=== PATIENT | female | born 1980 | race Caucasian/White ===

== ENCOUNTER 2022-11-21 06:30 | Emergency (ER) | payer OTHER, SELFPAY ==
[2022-11-21 06:36] VITALS: BP 124/86; PULSE 82; RESP 16; TEMP 36.5; O2SAT 98; BMI 29.3
--- NOTE | 2022-11-21 06:36 | ECG_ITS ---
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
--- NOTE | 2022-11-21 06:56 | ED_ITS ---
HPI - Anxiety General Chief Complaint: Anxiety Stated Complaint: MENTAL HEALTH EVAL Time Seen by Provider: 11/21/22 06:36 Source: patient Mode of arrival: walk-in Limitations: no limitations History of Present Illness HPI narrative: This 42-year-old female who is on multiple psychiatric medications for anxiety, depression and has an appointment at [address] [facility] presents to the emergency department requesting a mental health exam. She is feeling anxious and has thoughts that she doesn't want to be around anymore. I asked her why this is an she states that some things a been going on her life that are making her feel anxious and on appreciated. She states she also has a runny nose and a dry cough and recently had cold it. She states that she was at 2 emergency departments last night, one in [place] and one in [place] and they refused to see her. It sounds like the emergency departments were busy and she presented with upper respiratory symptoms and was placed in the lobby. She states that she tested positive for Covid 19 last Friday and then negative on . She is vaccinated. She denies any chest pain or shortness of breath. Related Data Home Medications Medication Instructions Recorded Confirmed aripiprazole 20 mg tablet mg 11/21/22 oxcarbazepine 150 mg tablet mg 11/21/22 quetiapine 25 mg tablet mg 11/21/22 sertraline 100 mg tablet mg 11/21/22 Allergies Allergy/AdvReac Type Severity Reaction Status Date / Time No Known Drug Allergies Allergy Verified 11/21/22 06:52 Review of Systems ROS Status of ROS 10 or more systems reviewed and unremarkable except as noted in history and below [facility] Social History Smoking status: Never smoker Exam Narrative Exam Narrative: Nurses note and vital signs reviewed and patient is not hypoxic. General: The patient appears well and in no apparent distress. Patient is resting comfortably on cart. Skin: Warm, dry, no pallor noted. There is no rash noted. Head: Normocephalic, atraumatic Eye: Normal conjunctiva, no drainage, EOMI. PERRL Ears, Nose, Mouth, and Throat: oral mucosa is moist. Nares patent. Mouth without vesicles. Ear canals patent. Tm's without Erythema Cardiovascular: Regular Rate and Rhythm S1 and S2 Respiratory: Patient is in no distress, no accessory muscle use, lungs are clear to auscultation, no wheezing, rales or rhonchi Back: non-tender, no CVA tenderness bilaterally to percussion. GI: Normal bowel sounds, no tenderness to palpation, no masses appreciated. No rebound, guarding, or rigidity noted. Musculoskeletal: The patient has no evidence of calf tenderness, no pitting edema, symmetrical pulses noted bilaterally Neurological: A&O x4, normal speech Psychiatric: Cooperative, Admits to ongoing anxiety, intermittent auditory hallucinations and depression with thoughts of not wanting to be here anymore Constitutional Vital Signs, click to edit/add: Last Vital Signs Temp 97.7 F 11/21/22 06:36 Pulse 82 11/21/22 06:36 Resp 16 11/21/22 06:36 BP 124/86 11/21/22 06:36 Pulse Ox 98 11/21/22 06:36 Course Vital Signs Vital signs: Vital Signs Temperature 97.7 F 11/21/22 06:36 Pulse Rate 82 11/21/22 06:36 Respiratory Rate 16 11/21/22 06:36 Blood Pressure 124/86 11/21/22 06:36 Pulse Oximetry 98 11/21/22 06:36 Temperature 97.7 F 11/21/22 06:36 Pulse Rate 82 11/21/22 06:36 Respiratory Rate 16 11/21/22 06:36 Blood Pressure 124/86 11/21/22 06:36 Pulse Oximetry 98 11/21/22 06:36 MDM - Anxiety ECG Data Attestation: I personally reviewed and interpreted this ECG as follows: (Sinus rhythm at 78 beats for minute, normal axis, normal intervals, no acute ST segment elevation or T-wave inversion) Discharge Plan Discharge Chief Complaint: Anxiety Patient Disposition: Still a Patient Time of Disposition Decision: 07:00 Prescriptions / Home Meds: No Action quetiapine 25 mg tablet oxcarbazepine 150 mg tablet sertraline 100 mg tablet aripiprazole 20 mg tablet Referrals: Physician,Non-Staff, MD [Primary Care Provider] - 1 week
--- NOTE | 2022-11-21 07:16 | PC.NURSE ---
CHECKED ON PT TO SEE IF SHE COULD TRY GIVING A URINE SAMPLE -- PT DENIES BEING ABLE TO GO. STATES SHE WOULD LIKE TO GO HOME AND NOT BE SEEN. PT AND THIS RN SIGNED AMA FORM. INFORMED DR DIAZ. PT REASONING IS THAT SHE DOES HAVE [facility] TODAY AND WOULD LIKE TO JUST BE SEEN THERE. PT DOES HAVE [facility] CR[facility]IS HOTLINE #.
--- NOTE | 2022-11-21 07:47 | ED.ANXIETY1 ---
HPI - Anxiety General Chief Complaint: Anxiety Stated Complaint: MENTAL HEALTH EVAL Time Seen by Provider: 11/21/22 06:36 Source: patient Mode of arrival: walk-in Limitations: no limitations History of Present Illness HPI narrative: the patient was initially seen by Dr. Perales and signed out to me after discussing the case with her thoroughly. See her full history and physical. Related Data Home Medications Medication Instructions Recorded Confirmed aripiprazole 20 mg tablet mg 11/21/22 oxcarbazepine 150 mg tablet mg 11/21/22 quetiapine 25 mg tablet mg 11/21/22 sertraline 100 mg tablet mg 11/21/22 Allergies Allergy/AdvReac Type Severity Reaction Status Date / Time No Known Drug Allergies Allergy Verified 11/21/22 06:52 PFSH PFSH Social History Smoking status: Never smoker Exam Constitutional Vital Signs, click to edit/add: Last Vital Signs Temp 97.7 F 11/21/22 06:36 Pulse 82 11/21/22 06:36 Resp 16 11/21/22 06:36 BP 124/86 11/21/22 06:36 Pulse Ox 98 11/21/22 06:36 Course Vital Signs Vital signs: Vital Signs Temperature 97.7 F 11/21/22 06:36 Pulse Rate 82 11/21/22 06:36 Respiratory Rate 16 11/21/22 06:36 Blood Pressure 124/86 11/21/22 06:36 Pulse Oximetry 98 11/21/22 06:36 Temperature 97.7 F 11/21/22 06:36 Pulse Rate 82 11/21/22 06:36 Respiratory Rate 16 11/21/22 06:36 Blood Pressure 124/86 11/21/22 06:36 Pulse Oximetry 98 11/21/22 06:36 MDM - Anxiety MDM Narrative Medical decision making narrative: the patient was in process of having workup and decided to leave without completing treatment. She is not suicidal. Discharge Plan Discharge Chief Complaint: Anxiety Clinical Impression: Anxiety Patient Disposition: Left Against Medical Advice Time of Disposition Decision: 07:00 Mode of Transportation: Private Vehicle Prescriptions / Home Meds: No Action quetiapine 25 mg tablet oxcarbazepine 150 mg tablet sertraline 100 mg tablet aripiprazole 20 mg tablet Stand Alone Forms: Portal Instructions Referrals: Physician,Non-Staff, MD [Primary Care Provider] - 1 week Discharge Date/Time: 11/21/22 07:18
== END 2022-11-21 07:18 | disposition left against medical advice (07) ==
PROVIDERS: Emergency Provider Emergency Medicine
DX: F41.9 Anxiety disorder, unspecified (principal); F32.A Depression, unspecified; Z79.899 Other long term (current) drug therapy; Z53.29 Procedure and treatment not carried out because of patient's decision for other reasons
CPT/HCPCS: 80053; 80307; 80320; 87811; 93005; 99283

== ENCOUNTER 2022-11-26 11:08 | Emergency (ER) | payer OTHER, SELFPAY ==
[2022-11-26 11:10] VITALS: BP 138/89; PULSE 94; RESP 18; TEMP 36.7; O2SAT 96; BMI 31.5
--- NOTE | 2022-11-26 11:15 | XR_ITS ---
The [address] [address] Patient Name: ROSANGELA HUGHES MRN: [id number] date: 1980 Sex: F Assigned Patient Location: ER Current Patient Location: ER Accession/Order Number: [id number] Exam Date: 11/26/2022 11:26 Report Date: 11/26/2022 12:03 At the request of: JOSEPH CASTANEDA Procedure: XR wrist RT 2V PROCEDURE: XR wrist RT 2V, XR hand RT min 3V COMPARISON: None. HISTORY: injury FINDINGS: BONES:No fracture, acute abnormality, or significant arthropathy. SOFT TISSUES:Negative. No visible soft tissue swelling. EFFUSION:None visible. OTHER: Negative. XR/XR wrist RT 2V IMPRESSION: No acute abnormality of the wrist or hand Electronically authenticated by: QUINTIN GARCIA Date: 11/26/2022 12:03
--- NOTE | 2022-11-26 11:15 | XR_ITS ---
The [address] [address] Patient Name: ROSANGELA HUGHES MRN: [id number] date: 1980 Sex: F Assigned Patient Location: ER Current Patient Location: ER Accession/Order Number: [id number] Exam Date: 11/26/2022 11:26 Report Date: 11/26/2022 12:03 At the request of: JOSEPH CASTANEDA Procedure: XR hand RT min 3V PROCEDURE: XR wrist RT 2V, XR hand RT min 3V COMPARISON: None. HISTORY: injury FINDINGS: BONES:No fracture, acute abnormality, or significant arthropathy. SOFT TISSUES:Negative. No visible soft tissue swelling. EFFUSION:None visible. OTHER: Negative. XR/XR hand RT min 3V IMPRESSION: No acute abnormality of the wrist or hand Electronically authenticated by: QUINTIN GARCIA Date: 11/26/2022 12:03
--- NOTE | 2022-11-26 12:19 | ED_ITS ---
HPI - General Adult General Chief complaint: Extremity Injury, Upper Stated complaint: UPPER EXTREMITY INJURY RIGHT HAND AND WRIST Time Seen by Provider: 11/26/22 12:11 Source: patient Mode of arrival: walk-in Limitations: language barrier History of Present Illness HPI narrative: Patient is a 42-year-old female who is presenting to the Emergency Room today with chief complaint of right wrist pain, right hand pain. Patient stated that she had a initial injury on September 02 with her right hand/wrist. Patient was diagnosed with a right wrist sprain at that time. Patient stated the right wrist did improve somewhat, but patient was bowling Friday night, and she reinjured the right wrist/hand. Patient has not been diagnosed with carpal tunnel syndrome. 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 Patient is right-hand dominant. Patient has no significant swelling, no fall, no other acute injury besides bowling Friday evening. No specific injury that occurred with bowling, just the act of bowling has reinjured the right wrist/hand. . All systems are negative except as noted/marked. All systems reviewed and otherwise negative. . Nurses note and vital signs reviewed and patient is not hypoxic. General: The patient appears well and in no apparent distress. Patient is resting comfortably on cart. Patient is not toxic, lethargic, or listless Skin: Warm, dry, no pallor noted. There is no rash noted. No petechiae, purpura. Head: Normocephalic, atraumatic Eye: Normal conjunctiva, no drainage, EOMI. PERRL Ears, Nose, Mouth, and Throat: oral mucosa is moist. Nares patent. Mouth without vesicles. Cardiovascular: Regular Rate and Rhythm, no murmur, gallop, rub Respiratory: Patient is in no distress, no accessory muscle use, lungs are clear to auscultation, no wheezing, rales or rhonchi Musculoskeletal: Patient has full range of motion of all of the extremities except to the right wrist and hand. Patient has pain over the volar and dorsal aspect of the right wrist. Patient has positive Tinel's and Phalen sign. patient has no ecchymosis, no obvious signs of deformity or dislocation. Patient has full range of motion of right shoulder and right elbow with no difficulty. patient has normal cap refill to the 5 fingers of the right hand. No acute complaints. no motor, sensory, or focal neurological deficits Neurological: A&O x3, normal speech Psychiatric: Cooperative Related Data Home Medications Medication Instructions Recorded Confirmed aripiprazole 20 mg tablet mg 11/21/22 oxcarbazepine 150 mg tablet mg 11/21/22 quetiapine 25 mg tablet mg 11/21/22 sertraline 100 mg tablet mg 11/21/22 Allergies Allergy/AdvReac Type Severity Reaction Status Date / Time No Known Drug Allergies Allergy Verified 11/21/22 06:52 PFSH PFS Social History Smoking status: Never smoker Exam Constitutional Vital Signs, click to edit/add: Last Vital Signs Temp 98.0 F 11/26/22 11:10 Pulse 94 H 11/26/22 11:10 Resp 18 11/26/22 11:10 BP 138/89 11/26/22 11:10 Pulse Ox 96 11/26/22 11:10 O2 Del Method Room Air 11/26/22 11:10 Course Vital Signs Vital signs: Vital Signs Temperature 98.0 F 11/26/22 11:10 Pulse Rate 94 H 11/26/22 11:10 Respiratory Rate 18 11/26/22 11:10 Blood Pressure 138/89 11/26/22 11:10 Pulse Oximetry 96 11/26/22 11:10 Oxygen Delivery Method Room Air 11/26/22 11:10 Temperature 98.0 F 11/26/22 11:10 Pulse Rate 94 H 11/26/22 11:10 Respiratory Rate 18 11/26/22 11:10 Blood Pressure 138/89 11/26/22 11:10 Pulse Oximetry 96 11/26/22 11:10 Oxygen Delivery Method Room Air 11/26/22 11:10 Medical Decision Making [facility] Narrative Medical decision making narrative: patient right hand x-ray and right wrist x-ray show no acute fracture, di slocation, or acute abnormality. A copy of the report was given to the patient. Patient is placed in a right hand cock-up splint. Splint was assisted with . the patient was neurovascularly intact before and after the splint was placed. the affected bones/injured area had proper alignment in a splint. Education on splint care at home was given at bedside. Patient and family have no questions at discharge. Patient was given education on ice, anti-inflammatories, and follow-up with PCP. No questions at discharge. Patient had a appointment made at 11:[address] Jansen for today surgery. Patient was given work restrictions as well. Patient does live in [place]. Patient is right-hand dominant, she's not seen Dr. Jansen previously. Patient does have repetitive motions at work, she may have underlying carpal tunnel syndrome to the right wrist. Discharge Plan Discharge Chief Complaint: Extremity Injury, Upper Clinical Impression: Mild carpal tunnel syndrome of right wrist, Right wrist sprain Patient Disposition: Home, Self-Care Time of Disposition Decision: 12:14 Condition: Good Prescriptions / Home Meds: No Action quetiapine 25 mg tablet oxcarbazepine 150 mg tablet sertraline 100 mg tablet aripiprazole 20 mg tablet Instructions: Wrist Injury (ED), Carpal Tunnel Syndrome (DC), P.R.I.C.E. Treatment (ED), Ice Pack Application (ED), Wrist Sprain (ED) Additional Instructions: ice 20 minutes on, 20 minutes off Use Motrin, Advil, ibuprofen 600 mg every 8 hours with food or drink to help with pain and swelling. He had an appointment on Friday 11:[address] Jansen. Stand Alone Forms: Work/School Release, Portal Instructions Referrals: Physician,Non-Staff, [Primary Care Provider] - 1 week Colten Jansen MD [Physician] - 1 week
== END 2022-11-26 12:22 | disposition home or self-care (01) ==
PROVIDERS: Emergency Provider Emergency Medicine
DX: S63.501A Unspecified sprain of right wrist, initial encounter (principal); G56.01 Carpal tunnel syndrome, right upper limb; X58.XXXA Exposure to other specified factors, initial encounter; Y93.54 Activity, bowling
CPT/HCPCS: 73100; 73130; 99284

== ENCOUNTER 2022-11-27 10:58 | Emergency (ER) | payer OTHER, SELFPAY | END 2022-11-27 11:07 | disposition left against medical advice (07) | LOC: ER 11:02 | PROVIDERS: Emergency Provider Emergency Medicine | DX: S63.501A Unspecified sprain of right wrist, initial encounter (principal); G56.01 Carpal tunnel syndrome, right upper limb; X58.XXXA Exposure to other specified factors, initial encounter; Y93.54 Activity, bowling; Z79.899 Other long term (current) drug therapy | CPT/HCPCS: 99281 ==

== ENCOUNTER 2022-12-10 09:53 | Emergency (ER) | payer OTHER, SELFPAY | END 2022-12-10 10:06 | disposition left against medical advice (07) | PROVIDERS: Emergency Provider Emergency Medicine Emergency Medical Services | DX: Z53.21 Procedure and treatment not carried out due to patient leaving prior to being seen by health care provider (principal) ==

== ENCOUNTER 2022-12-29 | Emergency (ER) | payer OTHER, SELFPAY ==
[2022-12-29 00:06] VITALS: BP 152/90; PULSE 66; RESP 18; TEMP 36.8; O2SAT 98; BMI 29.3
--- NOTE | 2022-12-29 00:15 | PC.NURSE ---
Patient to ED hoping to get prescriptions for her psych medications. She claims that she is stable on her current medication regimen and ran out of pills today. She does not want to go without her medications because she knows she will become depressed. She is in the process of switching from one counseling service to another and does not have anyone to prescribe her medications. She has been in this facility for SI numerous times in the past, has been sent to [facility] both voluntarily and involuntarily, and does not want that to happen again.
--- NOTE | 2022-12-29 00:29 | ED.ANXIETY1 ---
HPI - Anxiety General Chief Complaint: Anxiety Stated Complaint: Medication refill Time Seen by Provider: 12/29/22 00:24 Source: patient Mode of arrival: walk-in Limitations: no limitations History of Present Illness HPI narrative: patient past history of mental health. States she took her last dose of trileptal and zoloft today and she is looking for a new doctor. she does not want to be without her mental health meds and presented to the ER for refills she is otherwise doing well Related Data Home Medications Medication Instructions Recorded Confirmed aripiprazole 20 mg tablet mg 11/21/22 oxcarbazepine 150 mg tablet mg 11/21/22 quetiapine 25 mg tablet mg 11/21/22 sertraline 100 mg tablet mg 11/21/22 Allergies Allergy/AdvReac Type Severity Reaction Status Date / Time No Known Drug Allergies Allergy Verified 11/21/22 06:52 Review of Systems ROS Status of ROS 10 or more systems reviewed and unremarkable except as noted in history and below PFSH PFS Social History Smoking status: Never smoker Exam Constitutional Vital Signs, click to edit/add: Last Vital Signs Temp 98.2 F 12/29/22 00:06 Pulse 66 12/29/22 00:06 Resp 18 12/29/22 00:06 BP 152/90 H 12/29/22 00:06 Pulse Ox 98 12/29/22 00:06 O2 Del Method Room Air 12/29/22 00:06 Common normals: no apparent distress, average body habitus, oriented x3, no limitations, healthy appearing, alert and well nourished Eye Common normals: EOMs intact bilaterally and conjunctivae normal Respiratory Common normals: normal respiratory effort, no retractions, no use of accessory muscles and clear to auscultation bilaterally Cardio Common normals: regular rate, regular rhythm, S1 normal heart sound and S2 normal heart sound Extremity Common normals: normal to inspection and full ROM Neuro Common normals: oriented x3, CN's II-XII intact bilaterally, moves all extremities, no focal motor deficits and no sensory deficits noted Psych Appearance: grossly normal Course Vital Signs Vital signs: Vital Signs Temperature 98.2 F 12/29/22 00:06 Pulse Rate 66 12/29/22 00:06 Respiratory Rate 18 12/29/22 00:06 Blood Pressure 152/90 H 12/29/22 00:06 Pulse Oximetry 98 12/29/22 00:06 Oxygen Delivery Method Room Air 12/29/22 00:06 Temperature 98.2 F 12/29/22 00:06 Pulse Rate 66 12/29/22 00:06 Respiratory Rate 18 12/29/22 00:06 Blood Pressure 152/90 H 12/29/22 00:06 Pulse Oximetry 98 12/29/22 00:06 Oxygen Delivery Method Room Air 12/29/22 00:06 MDM - Anxiety MDM Narrative Medical decision making narrative: patient is doing well and is only here for refill of her mental health medication. Took her last dose today of zoloft and trileptal she still has abilify and seroquel. History of bipolar anxiety Discharge Plan Discharge Chief Complaint: Anxiety Clinical Impression: Anxiety Patient Disposition: Home, Self-Care Prescriptions / Home Meds: No Action quetiapine 25 mg tablet oxcarbazepine 150 mg tablet sertraline 100 mg tablet aripiprazole 20 mg tablet Instructions: Anxiety (ED) Stand Alone Forms: Portal Instructions Referrals: Physician,Non-Staff, MD [Primary Care Provider] - 1 week
== END 2022-12-29 00:41 | disposition home or self-care (01) ==
PROVIDERS: Emergency Provider Internal Medicine
DX: Z76.0 Encounter for issue of repeat prescription (principal); F41.9 Anxiety disorder, unspecified; F31.9 Bipolar disorder, unspecified; Z79.899 Other long term (current) drug therapy
CPT/HCPCS: 99283

== ENCOUNTER 2023-01-15 10:37 | Emergency (ER) | payer OTHER, SELFPAY ==
[2023-01-15 10:43] VITALS: BP 132/94; PULSE 98; RESP 16; TEMP 36.4; O2SAT 99; BMI 29.3
--- NOTE | 2023-01-15 11:13 | ED.URI1 ---
HPI - URI/Sore Throat General Chief Complaint: Upper Respiratory Infection Stated Complaint: urti Time Seen by Provider: 01/15/23 10:49 Source: patient History of Present Illness HPI Narrative: Patient has nasal congestion, chills and some achiness for about a week. She got sent home from work today and would like a work excuse. Overall symptoms are improved over the last 2 days. No fever, abdominal pain, vomiting, diarrhea, cough, chest congestion, flank pain or urinary symptoms. Related Data Home Medications Medication Instructions Recorded Confirmed aripiprazole 20 mg tablet mg 11/21/22 oxcarbazepine 150 mg tablet mg 11/21/22 quetiapine 25 mg tablet mg 11/21/22 sertraline 100 mg tablet mg 11/21/22 Allergies Allergy/AdvReac Type Severity Reaction Status Date / Time No Known Drug Allergies Allergy Verified 11/21/22 06:52 PFSH PFS Social History Smoking status: Never smoker Exam Narrative Exam Narrative: Nurses notes and vital signs reviewed and patient is not hypoxic. afebrile General: Well-appearing and in no apparent distress. Skin: Warm, dry, no pallor noted. No rash. Head: Normocephalic, atraumatic. Neck: Supple, non-tender. cervical lymphadenopathy. Eye: Pupils are equal, round and EOMI. No scleral icterus. Ears, Nose, Mouth, and Throat: TM are clear, mild amount of clear rhinorrhea and nasal mucosal hypertrophy. Oral mucosa is moist, no posterior oropharynx erythema, uvula is mid-line Cardiovascular: Regular Rate and Rhythm without murmur, gallop or rub. Respiratory: No accessory muscle use or respiratory distress. Lungs are clear to auscultation, no wheezing, rales or rhonchi Back: No CVA tenderness Musculoskeletal: normal ROM GI: Abdomen is soft, non-distended. Normal bowel sounds. No tenderness to palpation. No rebound, guarding, or rigidity noted. Neurological: A&O x4. No cranial nerve dysfunction observed. No truncal ataxia. Moves all extremities. Sensation intact. Psychiatric: Cooperative and interactive. Normal mood and affect. Constitutional Vital Signs, click to edit/add: Last Vital Signs Temp 97.6 F 01/15/23 10:43 Pulse 98 H 01/15/23 10:43 Resp 16 01/15/23 10:43 BP 132/94 H 01/15/23 10:43 Pulse Ox 99 01/15/23 10:43 O2 Del Method Room Air 01/15/23 10:43 Course Vital Signs Vital signs: Vital Signs Temperature 97.6 F 01/15/23 10:43 Pulse Rate 98 H 01/15/23 10:43 Respiratory Rate 16 01/15/23 10:43 Blood Pressure 132/94 H 01/15/23 10:43 Pulse Oximetry 99 01/15/23 10:43 Oxygen Delivery Method Room Air 01/15/23 10:43 Temperature 97.6 F 01/15/23 10:43 Pulse Rate 98 H 01/15/23 10:43 Respiratory Rate 16 01/15/23 10:43 Blood Pressure 132/94 H 01/15/23 10:43 Pulse Oximetry 99 01/15/23 10:43 Oxygen Delivery Method Room Air 01/15/23 10:43 MDM - URI/Sore Throat MDM Narrative Medical decision making narrative: Patient advised to rest, stay at home, practice social distancing, take Motrin and Tylenol for pain and fever if not allergic, stay well hydrated with Gatorade or similar drinks if vomiting or eat as tolerated if not and take any meds as prescribed. Reviewed reasons to return including rapid increase in respiratory rate, shortness of breath, confusion, inability to keep down sips of swallowed liquids for more than 24 hours. Asked patient to encourage any ill contacts to stay home and practice similar advice. Discharge Plan Discharge Chief Complaint: Upper Respiratory Infection Clinical Impression: Upper respiratory infection, Viral infection Patient Disposition: Home, Self-Care Time of Disposition Decision: 11:13 Prescriptions / Home Meds: No Action quetiapine 25 mg tablet oxcarbazepine 150 mg tablet sertraline 100 mg tablet aripiprazole 20 mg tablet Instructions: Upper Respiratory Infection (ED), Viral Syndrome (ED) Stand Alone Forms: Portal Instructions Referrals: Physician,Non-Staff, MD [Primary Care Provider] - 1 week
== END 2023-01-15 11:24 | disposition home or self-care (01) ==
PROVIDERS: Emergency Provider Emergency Medicine
DX: J06.9 Acute upper respiratory infection, unspecified (principal)
CPT/HCPCS: 99281

== ENCOUNTER 2023-01-29 06:10 | Emergency (ER) | payer OTHER, SELFPAY ==
[2023-01-29 06:15] VITALS: PULSE 91; RESP 17; TEMP 36.5; O2SAT 98; BMI 29.3
[2023-01-29 06:24] VITALS: BP 115/77; BP 118/77; BP 118/86; PULSE 78; PULSE 80; PULSE 81
--- NOTE | 2023-01-29 07:22 | ECG_ITS ---
The 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
--- NOTE | 2023-01-29 07:23 | ED.GENADUL1 ---
HPI - General Adult General Chief complaint: Weakness Stated complaint: GENERAL WEAKNESS Time Seen by Provider: 01/29/23 06:12 Source: patient Mode of arrival: walk-in Limitations: no limitations History of Present Illness HPI narrative: 43-year-old female presents for dizziness. She states it started yesterday when she was at work. There was no syncope. She's been nauseous but no vomiting. No fever or cough. She states she feels funny today but she doesn't have any pain. Related Data Home Medications Medication Instructions Recorded Confirmed aripiprazole 20 mg tablet mg 11/21/22 oxcarbazepine 150 mg tablet mg 11/21/22 quetiapine 25 mg tablet mg 11/21/22 sertraline 100 mg tablet mg 11/21/22 Allergies Allergy/AdvReac Type Severity Reaction Status Date / Time No Known Drug Allergies Allergy Verified 11/21/22 06:52 Review of Systems ROS Narrative A ten point review of systems is negative except as noted above. PFSH PFSH Social History Smoking status: Never smoker Exam Narrative Exam Narrative: Nurses note and vital signs reviewed and patient is not hypoxic. General: The patient appears well and in no apparent distress. Patient is resting comfortably on cart. Skin: Warm, dry, no pallor noted. There is no rash noted. Head: Normocephalic, atraumatic Eye: Normal conjunctiva, no drainage Ears, Nose, Mouth, and Throat: oral mucosa is moist. Nares patent. Cardiovascular: Regular Rate and Rhythm, not tachycardic Respiratory: Patient is in no distress, no accessory muscle use, lungs are clear to auscultation, no wheezing, rales or rhonchi Back: non-tender GI: soft and nontender Musculoskeletal: The patient has no evidence of calf tenderness, no pitting edema, symmetrical pulses noted bilaterally Neurological: A&O, normal speech; upper and lower extremity strength intact Psychiatric: Cooperative Constitutional Vital Signs, click to edit/add: Last Vital Signs Temp 97.7 F 01/29/23 06:15 Pulse 78 01/29/23 06:24 Resp 17 01/29/23 06:15 BP 118/86 01/29/23 06:24 Pulse Ox 98 01/29/23 06:15 O2 Del Method Room Air 01/29/23 06:15 Course Vital Signs Vital signs: Vital Signs Temperature 97.7 F 01/29/23 06:15 Pulse Rate 91 H 01/29/23 06:15 Respiratory Rate 17 01/29/23 06:15 Pulse Oximetry 98 01/29/23 06:15 Oxygen Delivery Method Room Air 01/29/23 06:15 Temperature 97.7 F 01/29/23 06:15 Pulse Rate 78 01/29/23 06:24 Respiratory Rate 17 01/29/23 06:15 Blood Pressure 118/86 01/29/23 06:24 Pulse Oximetry 98 01/29/23 06:15 Oxygen Delivery Method Room Air 01/29/23 06:15 Medical Decision Making MDM Narrative Medical decision making narrative: the patient's workup is negative. She'll follow-up with her physician if there is no improvement. Treatment diagnosis and follow-up were discussed with the patient. Medical Records Medical records reviewed: Yes I reviewed the patient's medical records Lab Data Lab results reviewed: Yes I reviewed the patient's lab results Labs: Lab Results 01/29/23 Range/Units 07:30 WBC 4.6 (4.0-11.0) 10^3/uL RBC 4.41 (4.20-5.40) 10^6/uL Hgb 11.5 L (12.0-16.0) g/dL Hct 37.0 (36.0-48.0) % MCV 83.9 (81.0-99.0) fL MCH 26.1 L (26.7-34.0) pg MCHC 31.1 (29.9-35.2) g/dL RDW 13.5 (11.0-15.0) % Plt Count 342 (150-450) 10^3/uL MPV 9.9 (9.5-13.5) fL Neut % (Auto) 62.0 (43.0-75.0) % Lymph % (Auto) 29.6 (20.5-60.0) % [place] % (Auto) 6.7 (1.7-12.0) % Eos % (Auto) 1.1 (0.9-7.0) % Baso % (Auto) 0.4 (0.2-2.0) % Neut # (Auto) 2.9 (1.4-6.5) 10^3/uL Lymph # (Auto) 1.4 (1.2-3.8) 10^3/uL [place] # (Auto) 0.3 (0.3-0.8) 10^3/uL Eos # (Auto) 0.1 (0.0-0.7) 10^3/uL Baso # (Auto) 0.0 (0.0-0.1) 10^3/uL Abs Immat Gran (auto) 0.01 (0.00-0.03) 10^3/uL Imm/Tot Granulo (auto) 0.2 (0.0-0.5) % Sodium 138 (136-145) mmol/L Potassium 3.9 (3.5-5.1) mmol/L Chloride 103 (98-107) mmol/L Carbon Dioxide 26.9 (21.0-32.0) mmol/L Anion Gap 12.0 BUN 9.0 (7.0-18.0) mg/dL Creatinine 0.63 (0.55-1.02) mg/dL Est GFR ( Amer) >60 (>=60) Est GFR (Non-Af Amer) >60 (>=60) BUN/Creatinine Ratio 14.3 Glucose 89 (74-106) mg/dL Calcium 8.6 (8.5-10.1) mg/dL Serum HCG, Qual Negative (NEGATIVE) ECG Data Attestation: I personally reviewed and interpreted this ECG as follows: (EKG on my interpretation shows normal sinus rhythm with a rate of 68.) Discharge Plan Discharge Chief Complaint: Weakness Clinical Impression: Dizziness Patient Disposition: Home, Self-Care Time of Disposition Decision: 08:28 Condition: Good Mode of Transportation: Private Vehicle Prescriptions / Home Meds: No Action quetiapine 25 mg tablet oxcarbazepine 150 mg tablet sertraline 100 mg tablet aripiprazole 20 mg tablet Instructions: Dizziness (ED) Stand Alone Forms: Portal Instructions Referrals: Physician,Non-Staff, MD [Primary Care Provider] - 1 week
[2023-01-29 07:35] VITALS: PULSE 62
[2023-01-29 07:44] LABS: Basophils Percent Auto 0.4 % (0.2-2.0); Eosinophils Absolute Auto 0.1 10^3/uL (0.0-0.7); Eosinophils Percent Auto 1.1 % (0.9-7.0); Hemoglobin 11.5 g/dL (12.0-16.0); Immature Granulocytes Abs Auto 0.01 10^3/uL (0.00-0.03); Immature Granulocytes Pct Auto 0.2 % (0.0-0.5); Lymphocytes Absolute Auto 1.4 10^3/uL (1.2-3.8); Lymphocytes Percent Auto 29.6 % (20.5-60.0); Mean Corpuscular HGB Conc 31.1 g/dL (29.9-35.2); Mean Corpuscular Hemoglobin 26.1 pg (26.7-34.0); Mean Corpuscular Volume 83.9 fL (81.0-99.0); Mean Platelet Volume 9.9 fL (9.5-13.5); Monocytes Absolute Auto 0.3 10^3/uL (0.3-0.8); Monocytes Percent Auto 6.7 % (1.7-12.0); Neutrophils Absolute Auto 2.9 10^3/uL (1.4-6.5); Platelet Count 342 10^3/uL (150-450); Red Blood Count 4.41 10^6/uL (4.20-5.40); Red Cell Distribution Width 13.5 % (11.0-15.0); White Blood Count 4.6 10^3/uL (4.0-11.0)
[2023-01-29 07:54] LABS: HCG Qualitative NEGATIVE (NEGATIVE)
[2023-01-29 08:18] LABS: BUN Creatinine Ratio 14.3; Calcium 8.6 mg/dL (8.5-10.1); Carbon Dioxide 26.9 mmol/L (21.0-32.0); Chloride 103 mmol/L (98-107); Estimated GFR (African America >60 (>=60); Estimated GFR (Non-African Ame >60 (>=60); Glucose 89 mg/dL (74-106); Potassium 3.9 mmol/L (3.5-5.1); Sodium 138 mmol/L (136-145)
[2023-01-29 08:28] VITALS: BP 142/90; PULSE 84; RESP 16; O2SAT 100
== END 2023-01-29 08:44 | disposition home or self-care (01) ==
PROVIDERS: Emergency Provider Emergency Medicine
DX: R42 Dizziness and giddiness (principal); Z79.899 Other long term (current) drug therapy
CPT/HCPCS: 36415; 80048; 84703; 85025; 93005; 99284

== ENCOUNTER 2023-02-06 09:41 | Emergency (ER) | payer OTHER, SELFPAY ==
[2023-02-06 09:46] VITALS: BP 126/88; PULSE 85; RESP 18; TEMP 36.6; O2SAT 98; BMI 29.3
--- NOTE | 2023-02-06 10:39 | ED_ITS ---
HPI - Dizziness General Chief Complaint: Dizziness Stated Complaint: DIZZINESS Time Seen by Provider: 02/06/23 10:25 Source: patient Mode of arrival: walk-in Limitations: no limitations History of Present Illness HPI Narrative: patient's here for evaluation of dizziness. She's had it for approximately one month. She says the dizziness she describes it as the room spinning. She's not had a head trauma or concussions. She does not have any associated diplopia or dysarthria or dysphasia. She told her primary care doctor but they didn't really investigated any further. She does not have any tinnitus or hearing loss. She's not been falling. She does not have any balance problems. She has been on several antidepressants for several months if not longer. There has not been a change in her medications. She's not had a CT scan. She is not known have a underlying central nervous system diseases or history of cancer. Related Data Home Medications Medication Instructions Recorded Confirmed aripiprazole 20 mg tablet mg 11/21/22 oxcarbazepine 150 mg tablet mg 11/21/22 quetiapine 25 mg tablet mg 11/21/22 sertraline 100 mg tablet mg 11/21/22 Allergies Allergy/AdvReac Type Severity Reaction Status Date / Time No Known Drug Allergies Allergy Verified 02/06/23 09:46 [facility] Social History Smoking status: Never smoker Exam Narrative Exam Narrative: awake alert normal vital signs as noted. Does not appear ill moves about comfortably. Eyes are open. HEENT examination shows very slight horizontal nystagmus with lateral gaze. Otherwise ears nose and throat sows no focus of infection. I examination as noted slight nystagmus but there is no vertical or rotatory component. Pupillary light response is normal. Extra ocular muscles are normal. Neurological examination focused on the cerebellar functions testing was all completely normal with fine motor skills finger to nose balance testing all normal. Cranial nerves II through XII and motor skills are equally normal. Cognition is normal. Patient is normal. She has good balance testing. Constitutional Vital Signs, click to edit/add: Last Vital Signs Temp 98 F 02/06/23 09:46 Pulse 85 02/06/23 09:46 Resp 18 02/06/23 09:46 BP 126/88 02/06/23 09:46 Pulse Ox 98 02/06/23 09:46 O2 Del Method Room Air 02/06/23 09:46 Course Vital Signs Vital signs: Vital Signs Temperature 98 F 02/06/23 09:46 Pulse Rate 85 02/06/23 09:46 Respiratory Rate 18 02/06/23 09:46 Blood Pressure 126/88 02/06/23 09:46 Pulse Oximetry 98 02/06/23 09:46 Oxygen Delivery Method Room Air 02/06/23 09:46 Temperature 98 F 02/06/23 09:46 Pulse Rate 85 02/06/23 09:46 Respiratory Rate 18 02/06/23 09:46 Blood Pressure 126/88 02/06/23 09:46 Pulse Oximetry 98 02/06/23 09:46 Oxygen Delivery Method Room Air 02/06/23 09:46 MDM - Dizziness MDM Narrative Medical decision making narrative: this patient's on three medications that haven't incidence of dizziness from 10- 50 percent. This may be the etiology or she could also have underlying vestibular dysfunction. I really hesitate at additional medication to what she is already taking but I think if she tries for two or three days and improves that would indicate that she probably has vestibular dysfunction. She was told to follow up with her practitioner's to discuss medication adjustments based on her tolerance of these recommendations Discharge Plan Discharge Chief Complaint: Dizziness Clinical Impression: Dizziness Patient Disposition: Home, Self-Care Time of Disposition Decision: 10:42 Prescriptions / Home Meds: No Action quetiapine 25 mg tablet oxcarbazepine 150 mg tablet sertraline 100 mg tablet aripiprazole 20 mg tablet Additional Instructions: try low-dose Antivert for two or three days. Follow up with her primary care doctor discuss medication interaction and symptoms Stand Alone Forms: Portal Instructions Referrals: Physician,Non-Staff, MD [Primary Care Provider] - 1 week
[2023-02-06 10:57] VITALS: BP 133/96; BP 142/110; BP 153/114; PULSE 73; PULSE 75; PULSE 83
[2023-02-06 10:59] VITALS: BP 133/96; PULSE 73; RESP 18
== END 2023-02-06 11:00 | disposition home or self-care (01) ==
PROVIDERS: Emergency Provider Emergency Medicine Emergency Medical Services
DX: R42 Dizziness and giddiness (principal); Z79.899 Other long term (current) drug therapy
CPT/HCPCS: 99283

== ENCOUNTER 2023-03-06 06:12 | Emergency (ER) | payer OTHER, SELFPAY ==
[2023-03-06 06:16] VITALS: BP 120/94; PULSE 76; RESP 18; TEMP 36.7; O2SAT 99; BMI 29.3
--- OUTSIDE RECORDS SUMMARY | 2023-03-06 06:30 | XMS_ITS | CCD ---
Author Name Unknown Address [address] [place] [address] Organization [facility] Care Team Providers Care Dairy Bacteriologist Name Role Phone Armen Martel Unavailable Unavailable None Unavailable Unavailable Marielos Moraes Primary Care Provider [phone] HotmireShan Primary Care Provider SHELBIE GOOD Admitting Unavailable NO, PHYSICIAN Primary Care Unavailable ARNOL GALAN Attending Unavailable HOTMIRE, SHAN CAMPUZANO Primary Care Unavaila ble Hotmire, Shan Campuzano Primary Care Provider Hotmire, Shan R Primary Care Provider ABBY JOLLEY Referring Unavailable HOTMIRE, SHAN R Primary Care Unavailable Hotmire DO, Shan R Primary Care Provider [phone] Hotmire Shan DUNN R Primary Care Provider HOTMIRESHAN Primary Care Physician [phone] Chandra Kaplan Primary Care Physician Unavail able Unavailable Primary Care Provider Unavailnimo e Armaan SLOAN Primary Care Physician MD Huma Barone Primary Care Provider [phone] DO Clifford Yusuf Emergency Provider MD Miguelangel Zhou Admit Provider MD Miguelangel Zhou Attending Provider MD Lisa Julian Admit Provider [phone] MD Lisa Julian Attending Provider [phone] DO Armaan Sloan Primary Care Provider MD Huma Barone Primary Care Provider Wanda REARDON Primary Care Physician Monika Mena Primary Care Physician Unavailable Primary Care Provider UnavailDat Flanagan Primary Care Physician [phone] NO FAMILY, PHYSICIAN Primary Care Provider Unava ilable Alanna, [facility]- Monica Keen Emergency Provider Dom Ferris Unavailable Coy Day DO Primary Care Provider [phone] COY DAY Primary Care Physician JUNI, DR CHITO Hassan Attending Unavailable JUNI, DR CHITO Hassan Admitting Unavailable JUNI, DR CHITO Hassan Consulting Unavailable REQUEST, NONE LISTED Primary Care Unavaila ble REQUEST, DR CARTER LISTED Primary Care Unavaila ble HAY ., DR ARMAS Attending Unavailable HAY ., DR ARMAS Admitting Unavailable HAY ., DR ARMAS Consulting Unavailable DIGNA ., ESTUARDO Admitting Unavailable DIGNA ., ESTUARDO Consulting Unavailable REQUEST, DR NONE LISTED Primary Care Unavaila ble DIGNA ., ESTUARDO Attending Unavailable MARKER ., DR SOW Admitting Unavailable REQUEST, NONE LISTED Primary Care Unavaila ble MARKER ., DR SOW Attending Unavailable JUNI, DR CHITO Hassan Consulting Unavailable JUNI, DR CHITO Hassan Attending Unavailable JUNI, DR CHITO Hassan Admitting Unavailable WENDIE ., DR HUMA Keen Primary Care Unavailable REQUEST, NONE LISTED Primary Care Unavaila ble JUNI, DR CHITO Hassan Attending Unavailable JUNI, DR CHITO Hassan Admitting Unavailable JUNI, DR CHITO Hassan Consulting Unavailable STEVEN, GINETTE Admitting Unavailable STEVEN, GINETTE Consulting Unavailable ELVIRAC, DR PRATT Primary Care Unavailable STEVEN, GINETTE Attending Unavailable STEVEN, GINETTE Admitting Unavailable WENDIE ., DR HUMA Keen Primary Care Unavailable STEVEN, GINETTE Attending Unavailable STEVEN, GINETTE Consulting Unavailable ELVIRAC, DR PRATT Primary Care Unavailable JUNI, DR CHITO Hassan Attending Unavailable JUNI, DR CHITO Hassan Admitting Unavailable JUNI, DR CHITO Hassan Consulting Unavailable REQUEST, NONE LISTED Primary Care Unavaila ble REINECK, DR ARAVIND Atkinson Admitting Unavailabl e REINECK, DR ARAVIND Atkinson Consulting Unavailabl e REINECK, DR ARAVIND Atkinson Attending Unavailabl e STEVEN, GINETTE Admitting Unavailable STEVEN, GINETTE Consulting Unavailable REQUEST, DR NONE LISTED Primary Care Unavaila ble STEVEN, GINETTE Attending Unavailable FLOR SANDOVAL Consulting Unavailable REQUEST, NONE LISTED Primary Care Unavaila ble RAMA ., SHANA RUSSO Consulting Unavailabl e YASMINE, DR ARAVIND Atkinson Attending Unavailabl e REINMELANI, DR ARAVIND Atkinson Admitting Unavailabl e JUNI, DR CHITO Hassan Attending Unavailable ALFREDO, DR CHITO Hassan Admitting Unavailable REQUEST, DR NONE LISTED Primary Care Unavaila ble STEVEN, GINETTE Attending Unavailable STEVEN, GINETTE Admitting Unavailable STEVEN, GINETTE Consulting Unavailable MISC, DR PRATT Primary Care Unavailable REQUEST, NONE LISTED Primary Care Unavaila ble HAY ., DR ARMAS Attending Unavailable HAY ., DR ARMAS Admitting Unavailable HAY ., DR ARMAS Consulting Unavailable DIGAN ., ESTUARDO Admitting Unavailable DIGNA ., ESTUARDO Consulting Unavailable DIGNA ., ESTUARDO Attending Unavailable REQUEST, DR NONE LISTED Primary Care Unavaila ble REINECK, DR ARAVIND Atkinson Admitting Unavailabl e REINECK, DR ARAVIND Atkinson Attending Unavailabl e REQUEST, NONE LISTED Primary Care Unavaila ble DIGNA ., ESTUARDO Admitting Unavailable DIGNA ., ESTUARDO Attending Unavailable REQUEST, DR NONE LISTED Primary Care Unavaila ble DIAB ., RAUL Attending Unavailable DIAB ., RAUL Admitting Unavailable REQUEST, DR NONE LISTED Primary Care Unavaila ble DIAB ., RAUL Consulting Unavailable STEVEN, GINETTE Admitting Unavailable STEVEN, GINETTE Consulting Unavailable MISC, DR PRATT Primary Care Unavailable STEVEN, GINETTE Attending Unavailable Coy Day DO Primary Care Provider Coy Day DO Primary Care Provider Diana MARQUEZ - Beth FIGUEREDO Primary Care Provid er COY DAY Primary Care Unavailable LAW, DA E Referring Unavailable BETH ORTIZ Primary Care Unavailable BETH ORTIZ Primary Care Unavailable BETH ORTIZ Primary Care Unavailable COY DAY Primary Care Unavailable No Family, Physician Primary Care Unavailable BETH ORTIZ Primary Care Unavailable COY DAY Primary Care Unavailable DO Coy Day Primary Care Provider JIMMY Mendoza Attending Provider NO FAMILY, PHYSICIAN Primary Care Provider UnaMD Miguelangel Schulte Admit Provider MD Miguelangel Zhou Attending Provider NON STAFF Primary Care Provider Unavailabl e DO Ace Frankel Emergency Provider [phone] Diana BUSINESS PROCESS REPRESENTATIVE - COMMERCIAL AGENT, Beth Primary Care Provid er BETH ORTIZ Primary Care Unavailable COY DAY Primary Care Unavailable QUINTIN CAR Attending Unavailable SHAN RIVAS Primary Care Physician Temp, Provider Admitting Unavailable Temp, Provider Attending Unavailable NO FAMILY, PHYSICIAN Primary Care Unavailable TuRebeca saldanarick M Admitting Unavailable TuAce saldana M Attending Unavailable NON STAFF Primary Care Unavailable Coy Day Primary Care Unavailabl e Jostin, Ace M Admitting Unavailable Ace Frankel Attending Unavailable Miguelangel Zhou Attending Unavailable NO FAMILY, PHYSICIAN Primary Care Unavailable Miguelangel Zhou Admitting Unavailable Monica Mondragon Admitting Unavailable BullMonica owens Attending Unavailable NO FAMILY, PHYSICIAN Primary Care Unavailable Coy Day Primary Care Unavailabl Sarai Boyd Admitting Unavailable Sarai Mendoza Attending Unavailable Scar Julian Admitting Unavailab Scar Maguire Attending Unavailab le NO FAMILY, PHYSICIAN Primary Care Unavailable BETH ORTIZ Primary Care Unavailable JASON MILLER Attending Unavailable OLIVERIO WEEKS Attending Unavailable COY DAY Primary Care Unavailable THEE DAYSHUA J Primary Care Unavailable THEE DAYSHUA J Referring Unavailable ALTAF RAUL Attending Unavailable THEE DAYSHUA J Primary Care Unavailable COY DAY Primary Care Unavailable WANDA QIU Attending Unavailable Grant Dos Santos Attending Unavailable Ishmael Fernandez SShalom Attending Unavailable DO Edwin Jolley Attending Unavailable Alan Zhu Attending Unavailable Alan Zhu Attending Unavailable Alan Zhu Attending Unavailable Grant Dos Santos Attending Unavailable Matt Pena Attending Unavailable Grant Dos Santos Attending Unavailable Bertin Fernandes Attending Unavailable Ishmael Fernandez SShalom Attending Unavailable Grant Dos Santos Attending Unavailable Grant Dos Santos Attending Unavailable IRINA, ILA PEDERSEN Admitting Unavaila ble SOSHANNON, ILA PEDERSEN Attending Unavaila Grant Rust Attending Unavailable DIANA, BETH Admitting Unavailable DIANA, BETH Attending Unavailable DO Edwin Jolley Attending Unavailable Matt Pena Attending Unavailable Alan Zhu Attending Unavailable Alan Zhu Attending Unavailable Alan Zhu Attending Unavailable Grant Dos Santos Attending Unavailable Niesha Duffy Unavailable COY DAY Primary Care Unavailable COY DAY Primary Care Unavailable JANEEN SCHILLING Attending Unavailable DIANA, BETH Primary Care Unavailable OLEKEEGAN MEREDITHUA J Primary Care Unavailable DIANA, BETH Primary Care Unavailable MARITO JASON Attending Unavailable DIANA, BETH Primary Care Unavailable COY DAY Primary Care Unavailable COY ZUÑIGA Attending Unavailable DIANA, BETH Primary Care Unavailable DIANA, BETH Primary Care Unavailable KEEGAN DAYUA Fay Primary Care Unavailable DIANA, BETH Primary Care Unavailable COY DAY Primary Care Unavailable MARITO JASON Attending Unavailable DIANA, BETH Primary Care Unavailable DIANA, BETH Primary Care Unavailable MARITO JASON Attending Unavailable DIANA, BETH Primary Care Unavailable FLY MUÑOZ R JHOAN~[id number] GERRI Attending Unavailable DIANA, BETH Primary Care Unavailable DIANA, BETH Primary Care Unavailable DIANA, BETH Primary Care Unavailable ANTONIO, COY J Primary Care Unavailable RAY WANDA, R JHOAN~[id number] GERRI Attending Unavailable THEE DAYSHUA J Primary Care Unavailable DELIO BOLES Attending Unavailable DIANA, BETH Primary Care Unavailable DIANA, BETH Primary Care Unavailable MARITO JASON Attending Unavailable DIANA, BETH Primary Care Unavailable DIANA, BETH Primary Care Unavailable THEE DAYSHUA J Primary Care Unavailable Fay VARGAS~[id number] CHITO~[id number] BARAHONA Att ending Unavailable COY DAY Primary Care Unavailable DIANA, BETH Primary Care Unavailable EV BARAHONA Attending Unavailable Hotmire DO, Shan Nando Primary Care Unava ilable Subha PA-C, Louann Thomas Attending Unavaila ble Hotmire DO, Shan Nando Primary Care Unava ilable Carmen PA-C, Haylee Guido Attending Unavaila ble Rhett DO, Luisa Capone Attending Unava ilable Hotmire DO, Shan Nando Primary Care Unava ilbrianne Grey MD, Austin Attending Unavailable Law DO, Da E Primary Care Unavailable Hotmire DO, Shan Nando Primary Care Unava francyable Que MARAVILLA, Austin Attending Unavailable Rhett DO, Luisa Capone Attending Unava ilable Roland MARAVILLA, Nakul Anthony Referring Unava ilable Law DO, Da E Primary Care Unavailable Denike DO, Patricio Barron Attending Unavaila ble Reese MARAVILLA, Ofelia Calvillo Attending Unavailab le Law DO, Da E Primary Care Unavailable Que MARAVILLA, Austin Attending Unavailable Rhett DO, Luisa Capone Attending Unava ilable Andre ALEXIS, Beth Caballero Attending Unavailable Hotmire DO, Shan Nando Primary Care Unava ilable Andrzej PA-C, Dante Mo Attending Unav ailable Allen MARAVILLA, Raheem Gallagher Attending Unava ilable Law DO, Da E Primary Care Unavailable Law DO, Da E Primary Care Unavailable Hotmire DO, Shan Nando Primary Care Unava ilable Roland MARAVILLA, Nakul Anthony Attending Unava ilable Hotmire DO, Shan Nando Primary Care Unava ilable Hotmire DO, Shan Nando Consulting Unava marbella Grey MD, Austin Attending Unavailable Meek MARAVILLA, Grant Sheikh Attending Unavailable Hotmire DO, Shan Nadno Primary Care Unava ilable Hotmire DO, Shan Nando Primary Care Unava ilable Andrzej PA-C, Dante Mo Attending Unav ailable Hotmire DO, Shan Nando Primary Care Unava ilable Carmen PA-C, Haylee Guido Attending Unavaila ble Hotmire DO, Shan Nando Primary Care Unava ilable Carmen PA-C, Haylee Guido Attending Unavaila ble Salome II DO, Dom Mixon Attending Unava ilable Law DO, Da E Primary Care Unavailable Hotmire DO, Shan Nando Primary Care Unava ilable Roger DILLON, Betsy Schulz Attending Unav ailable Hotmire DO, [facility] Primary Care Unava ilable Karrie ALEXIS, Dasha Zhou Attending Unavailable Roger DILLON, Betsy Schulz Attending Unav donta Martinez MD, Serina Attending Unavailable Law DO, Da E Primary Care Unavailable Law DO, Da E Primary Care Unavailable Subha DILLON, Louann Thomas Attending Unavaila trevor Martinez MD, Serina Attending Unavailable Hotmire DO, [facility] Primary Care Unava ilable Hotmire DO, [facility] Primary Care Unava ilable Yosef MARAVILLA, Coy Post Attending Unav ailable Law DO, Da E Primary Care Unavailable Law DO, Da E Primary Care Unavailable Allen MARAVILLA, Raheem Gallagher Attending Unava ilable Allergies Allergy Classification Reported Allergen(s) Allergy Type Date of Onset Reaction(s) Facility (1 source) No Known Medication Allergies; Translations: [No Known Medication Allergies] Propensity to adverse reactions to drug (disorder) [facility] Repository Medications Current Medications Medication Drug Class(es) Dates Sig (Normalized) Sig (Original) acetaminophen 500 mg oral tablet (7 sources) Start: 09-19-2022 take 2 tablets by mouth every eight hours as needed for pain acetaminophen (TYLENOL) 500 MG tablet Take 2 tablets by mouth every 8 hours as needed for Pain 360 tablet 0 09/19/2022 Active Start: 09-19-2022 acetaminophen (TYLENOL) tablet 1,000 mg [facility]amin[facility] 500 MG Oral for 30 Days Not-Taking/PRN amoxicillin 500 mg oral capsule (2 sources) Penicillin-class Antibacterial Start: 07-31-2021 End: 08-10-2021 take 1 capsule by mouth three times daily amoxicillin (AMOXIL) 500 mg capsule Take 1 capsule by mouth 3 times daily for 10 days 30 capsule 0 07/31/2021 08/10/2021 Active amoxicillin 875 mg / clavulanate 125 mg oral tablet (20 sources) Penicillin-class Antibacterial Start: 02-21-2023 take 1 tablet by mouth every twelve hours Amoxicillin-Pot Clavulanate 875-125 MG 1 tablet Orally every 12 hrs for 10 day(s) Jan, Active Start: 09-19-2022 End: 09-26-2022 take 1 tablet by mouth twice daily amoxicillin-clavulanate (AUGMENTIN) 875-125 MG per tablet Take 1 tablet by mouth 2 times daily for 7 days 14 tablet 0 09/19/2022 09/26/2022 Active Start: 08-13-2022 take 1 tablet by tameka th twice daily at mealtime amoxicillin-clavulanate (AUGMENTIN) 875-125 MG per tablet take 1 tablet by mouth twice a day for 7 days TAKE WITH FOOD AND PLENTY OF WATER 0 08/13/2022 Active Start: 12-04-2021 End: 12-14-2021 take 1 tablet by mouth every twelve hours Augmentin 875 mg oral tablet = 1 tab(s), Oral, q12hr, X 10 day(s), # 20 tab(s), Refills(s) 0, Pharmacy: [facility] #[id number], 158, cm, 12/04/21 16:22:00 EDT, Height/Length Dosing, 73, kg, 12/04/21 16:22:00 EDT, Weight Dosing Start Date: 12/04/21 Stop Date: 12/14/21 Status: Ordered Start: 10-08-2021 End: 05-29-2022 take 1 tablet by mouth twice daily Amoxicillin-Pot Clavulanate Discontinued 1 TAB PO Twice daily October 08, 2021 12:00am May 29, 2022 2:54pm Start: 10-08-2021 take 1 tablet by tameka th twice daily Amoxicillin-Pot Clavulanate Active 1 TAB PO Twice daily October 08, 2021 12:00am Start: 07-31-2021 take 1 tablet by tameka th twice daily Amoxicillin-Pot Clavulanate Active 1 TAB PO Twice daily 13 09July 31, 2021 7:33am Start: 07-31-2021 End: 08-17-2021 take 1 capsule by mouth three times daily Amoxicillin-Pot Clavulanate Discontinued 1 TAB PO Twice daily 13 09July 31, 2021 12:00am August 17, 2021 10:49am 13 capsules left take 1 capsule by mouth three times a day for 10 days Start: 08-04-2020 End: 08-14-2020 take 1 tablet by mouth twice daily amoxicillin-clavulanate (AUGMENTIN) 875-125 MG per tablet Take 1 tablet by mouth 2 times daily for 10 days 20 tablet 0 08/04/2020 08/14/2020 Active Start: 09-18-2018 End: 09-25-2018 take 1 tablet by mouth twice daily amoxicillin-clavulanate (AUGMENTIN) 875-125 MG per tablet Indications: Chronic frontal sinusitis Take 1 tablet by mouth 2 times daily for 7 days 14 tablet 0 09/18/2018 09/25/2018 End: 12-05-2021 take 1 tablet by mouth once in the morning amoxicillin-clavulanate (AUGMENTIN) 875-125 MG per tablet Take 1 tablet by mouth in the morning. 0 12/05/2021 Discontinued (LIST CLEANUP) ARIPiprazole 400 mg extended release prefilled syringe (20 sources) Atypical Antipsychotic Start: 10-27-2022 take 10 mg by mouth once daily Aripiprazole Active 10 MG PO Daily 0 October 27, 2022 12:00am Start: 10-27-2022 Aripiprazole ( Abilify Maintena) 400 mg Suspension,Extended Rel Syring Active 400 MG IM Q28D 1 October 27, 2022 12:00am Due on or about 11/22/2022 Start: 10-25-2022 End: 10-27-2022 take 15 mg by mouth once daily Aripiprazole Discontinued 15 MG PO Daily October 25, 2022 12:00am October 27, 2022 11:23am Start: 09-18-2018 End: 07-31-2021 take 1 tablet by mouth once daily ARIPiprazole (ABILIFY) 5 MG tablet Take 1 tablet by mouth daily 30 tablet 0 09/18/2018 Active take 1 tablet by tameka th once daily ARIPiprazole (ABILIFY) 10 MG tablet Take 10 mg by mouth daily . 0 Active benzonatate 100 mg oral capsule (3 sources) Non-narcotic Antitussive Start: 06-03-2022 End: 11-21-2022 take 1 capsule by mouth three times daily as needed for cough benzonatate (TESSALON) 100 MG capsule Take 1 capsule by mouth 3 times daily as needed for Cough 30 capsule 0 11/11/2022 11/21/2022 Active brompheniramine maleate 0.4 mg/ml / dextromethorphan hydrobromide 2 mg/ml / pseudoephedrine hydrochloride 6 mg/ml oral solution (17 sources) alpha-Adrenergic Agonist, Uncompetitive T-lamhbm-F-asparta te Receptor Antagonist, Sigma-1 Agonist Start: 05-17-2022 take 5 mL by mouth four times daily for cough and congestion Bromfed DM oral syrup 5 mL, Oral, QID for cough and congestion, 200 mL, Refill(s) 0, [id number], 157, cm, 05/17/22 9:42:00 EDT, Height/Length Dosing, 73, kg, 05/17/22 9:42:00 EDT, Weight Dosing Start Date: 05/17/22 Status: Ordered Start: 08-15-2021 End: 09-21-2021 Plxnhwwaraxghkg-Dghsihcsu-Py Discontinued 5 ML PO Three times daily August 15, 2021 12:00am September 21, 2021 4:11am take 5 mililiters by mouth three times a day if needed for cough and congestion, bottle full Start: 07-31-2021 End: 08-05-2021 take 5 mL by mouth three times daily as needed for cough jqeubzofwkvslsv-ibitpvwsrppztrm-WB 2-30- 10 MG/5ML syrup Take 5 mLs by mouth 3 times daily as needed for Congestion or Cough 100 mL 0 07/31/2021 08/05/2021 Active cephalexin 500 mg oral capsule (2 sources) Cephalosporin Antibacterial Start: 08-28-2022 End: 09-02-2022 take 1 capsule by mouth every twelve hours Keflex 500 mg Cap 500 mg = 1 cap(s), Oral, q12hr, X 5 day(s), # 10 cap(s), Refills(s) 0 Start Date: 08/28/22 Stop Date: 09/02/22 Status: Ordered COVID TEST (20 sources) Start: 10-06-2021 COVID TEST COVID TEST, Please dispense 1 at home covid test that ins will cover, Print Requisition, Supply Start Date: 10/06/21 Status: Ordered dextromethorphan hydrobromide 2 mg/ml / guaiFENesin 20 mg/ml oral suspension (1 source) Uncompetitive R-bpigqs-W-aspartate Receptor Antagonist, Sigma-1 Agonist Start: 11-11-2022 End: 11-21-2022 take 5 mL by mouth three times daily as needed for cough guaiFENesin-dext romethorphan (ROBITUSSIN DM) 100-10 MG/5ML syrup Take 5 mLs by mouth 3 times daily as needed for Cough 120 mL 0 11/11/2022 11/21/2022 Active dicyclomine hydrochloride 10 mg oral capsule (1 source) Anticholinergic Start: 07-14-2022 End: 07-21-2022 take 1 capsule by mouth four times daily Bentyl 10 mg Cap 10 mg = 1 cap(s), Oral, QID, X 7 day(s), # 14 cap(s), Refills(s) 0, Pharmacy: [id number], 157, cm, 07/14/22 2:01:00 EDT, Height/Length Dosing, 83.1, kg, 07/14/22 2:01:00 EDT, Weight Dosing Start Date: 07/14/22 Stop Date: 07/21/22 Status: Ordered doxycycline hyclate 100 mg oral tablet (3 sources) Tetracycline-class Drug Start: 09-18-2022 End: 09-25-2022 take 1 tablet by mouth twice daily doxycycline hyclate (VIBRA-TABS) 100 MG tablet Indications: Acute bacterial sinusitis Take 1 tablet by mouth 2 times daily for 7 days 14 tablet 0 09/18/2022 09/25/2022 Active Start: 09-16-2022 End: 09-23-2022 take 1 tablet by mouth twice daily doxycycline monohydrate 100 mg oral tablet 100 mg = 1 tab(s), Oral, BID, X 7 day(s), # 14 tab(s), Refills(s) 0, Pharmacy: [facility] #[id number], 157.5, cm, 09/16/22 7:22:00 EDT, Height/Length Dosing, 84, kg, 09/16/22 7:22:00 EDT, Weight Dosing Start Date: 09/16/22 Stop Date: 09/23/22 Status: Ordered Flonase 0.05 mg/inh nasal spray (14 sources) Start: 01-15-2022 Flonase 0.05 m g/inh nasal spray 1 spray(s), Nasal, Daily, 1 EA, Refill(s) 0, 158, cm, 01/15/22 12:06:00 EST, Height/Length Dosing, 73, kg, 01/15/22 12:06:00 EST, Weight Dosing Start Date: 01/15/22 Status: Ordered fluticasone propionate 0.05 mg/actuat metered dose nasal spray (13 sources) Corticosteroid Start: 05-07-2022 fluticasone Na aramis 0.05 mg/inh Atco 2 spray(s), Nasal, Daily, 16 gram, Refill(s) 0, each nostril, [facility], 157, cm, 05/07/22 12:59:00 EST, Height/Length Dosing, 73, kg, 05/07/22 12:59:00 EST, Weight Dosing Start Date: 05/07/22 Status: Ordered Start: 01-15-2022 Flonase 0.05 m g/inh nasal spray 1 spray(s), Nasal, Daily, 1 EA, Refill(s) 0, 158, cm, 01/15/22 12:06:00 EST, Height/Length Dosing, 73, kg, 01/15/22 12:06:00 EST, Weight Dosing Start Date: 01/15/22 Status: Ordered Start: 01-13-2019 fluticasone (F LONASE) 50 MCG/ACT nasal spray Indications: Acute bacterial sinusitis 2 sprays by Nasal route daily 1 Bottle 1 01/13/2019 Active furosemide 20 mg oral tablet (3 sources) Loop Diuretic Start: 11-02-2022 End: 11-07-2022 take 1 tablet by mouth once daily furosemide (LASIX) 20 MG tablet Take 1 tablet by mouth daily for 5 days 5 tablet 0 11/02/2022 Active Start: 10-20-2018 End: 10-30-2018 take 1 tablet by mouth once daily furosemide (LASIX) 40 MG tablet Take 1 (one) tablet (40 mg total) by mouth daily for 10 days . 10 tablet 0 10/20/2018 10/30/2018 Active 12 hr guaiFENesin 600 mg extended release oral tablet (3 sources) Start: 09-19-2022 End: 10-04-2022 take 1 tablet by mouth twice daily guaiFENesin (MUCINEX) 600 MG extended release tablet Take 1 tablet by mouth 2 times daily for 15 days 30 tablet 0 09/19/2022 10/04/2022 Active hydrOXYzine hydrochloride 25 mg oral tablet (20 sources) Antihistamine Start: 07-10-2022 take 1 tablet by mouth every eight hours as needed for anxiety hydrOXYzine HCl (ATARAX) 25 MG tablet Take 1 tablet by mouth every 8 hours as needed for Anxiety 10 tablet 0 07/10/2022 Active Start: 07-10-2022 End: 07-10-2022 take 1 dose by mouth once 25 mg, Oral, ONCE, 1 dose, O n 07/10/22 at 1230 Start: 08-15-2021 End: 08-17-2021 Hydroxyzine Hcl Discontinued MG TABLET August 15, 2021 12:00am August 17, 2021 10:49am Start: 09-19-2020 End: 09-21-2021 hydrOXYzine pamoate 25 mg Ca p Refills(s) 0 Start Date: 01/04/21 Status: Ordered Start: 09-17-2018 End: 10-02-2018 take 1 tablet by mouth three times daily as needed for anxiety hydrOXYzine (ATARAX) 50 MG tablet Take 1 tablet by mouth 3 times daily as needed for Anxiety 45 tablet 0 09/17/2018 10/02/2018 Discontinued (LIST CLEANUP) End: 09-17-2018 take 1 tablet by mouth three times daily as needed for anxiety hydrOXYzine (ATARAX) 25 MG tablet Take 25 mg by mouth 3 times daily as needed for Anxiety 0 Active loratadine 10 mg oral tablet (11 sources) Start: 05-07-2022 take 1 tablet by mouth once daily loratadine 10 mg Tab 10 mg = 1 tab(s), Oral, Daily, # 30 tab(s), Refills(s) 0, Pharmacy: [facility] #[id number], 157, cm, 05/07/22 12:59:00 EST, Height/Length Dosing, 73, kg, 05/07/22 12:59:00 EST, Weight Dosing Start Date: 05/07/22 Status: Ordered 24 hr loratadine 10 mg / pseudoephedrine sulfate 240 mg extended release oral tablet (3 sources) alpha-Adrenerg ic Agonist Start: 09-16-2022 End: 09-30-2022 Claritin-D 24 Hour 10 mg-240 mg Tab-ER 1 tab(s), Oral, Daily for 14 day(s), 14 tab(s), Refill(s) [facility] #[id number], 157.5, cm, 09/16/22 7:22:00 EDT, Height/Length Dosing, 84, kg, 09/16/22 7:22:00 EDT, Weight Dosing Start Date: 09/16/22 Stop Date: 09/30/22 Status: Ordered Start: 12-04-2021 End: 12-14-2021 loratadine-pseudoephedrine 5 mg-120 mg ER Tab 1 tab(s), Oral, q12hr for 10 day(s), 20 tab(s), Refill(s) 0, [facility] #[id number], 158, cm, 12/04/21 16:22:00 EDT, Height/Length Dosing, 73, kg, 12/04/21 16:22:00 EDT, Weight Dosing Start Date: 12/04/21 Stop Date: 12/14/21 Status: Ordered Start: 01-13-2019 take 10-240 mg by mo ut once loratadine-pseudoephedrine (CLARITIN-D 2 4 HOUR) 10-240 MG per extended release tablet Indications: Acute bacterial sinusitis Take 1 tablet by mouth daily 15 tablet 0 01/13/2019 Active LORazepam 1 mg oral tablet (20 sources) Benzodiazepine Start: 08-27-2020 take 1 tablet by mouth once daily at bedtime LORazepam 1 mg Tab 1 mg = 1 tab(s), Oral, Once a day (at bedtime), # 3 tab(s), Refills(s) 0 Start Date: 08/27/20 Status: Ordered meclizine hydrochloride 25 mg oral tablet (7 sources) Antiemetic take 1 tablet by mouth three times daily as needed meclizine (ANTIVERT) 25 MG tablet Take 1 tablet by mouth 3 times daily as needed 0 Active meloxicam (14 sources) Nonsteroidal Anti-inflammatory Drug MELOXICAM PO Take by mouth 0 Active take 1 tablet by mouth once rosendo y meloxicam (MOBIC) 15 MG tablet Take 15 mg by mouth daily . 0 Active methylPREDNISolone 4 mg oral tablet (1 source) Corticosteroid Start: 03-29-2022 End: 04-04-2022 Medrol 4 mg Tab = 1 packet(s), Oral, As Directed, as directed on package labeling, X 6 day(s), # 21 tab(s), Refills(s) 0, Pharmacy: [id number], 157, cm, 03/29/22 10:42:00 EST, Height/Length Dosing, 73, kg, 03/29/22 10:42:00 EST, Weight Dosing Start Date: 03/29/22 Stop Date: 04/04/22 Status: Ordered naproxen 375 mg oral tablet (20 sources) Nonsteroidal Anti-inflammatory Drug Start: 07-28-2022 End: 08-04-2022 take 1 tablet by mouth twice daily at mealtime naproxen (NAPROSYN) 375 MG tablet Take 1 tablet by mouth 2 times daily (with meals) for 7 days 14 tablet 0 07/28/2022 Active Start: 10-16-2021 take 1 tablet by tameka th twice daily Naprosyn 500 mg Tab 500 mg = 1 tab(s), Oral, BID, # 20 tab(s), Refills(s) 0, Pharmacy: [id number], 157, cm, 07/19/22 8:37:00 EDT, Height/Length Dosing, 83.1, kg, 07/19/22 8:37:00 EDT, Weight Dosing Start Date: 07/19/22 Status: Ordered nicotine 2 mg chewing gum (2 sources) Cholinergic Nicotinic Agonist Start: 10-27-2022 Nicotine (Polacrilex) Active 2 MG BUCCAL Q2H October 27, 2022 12:00am ondansetron 4 mg disintegrating oral tablet (8 sources) Serotonin-3 Receptor Antagonist Start: 08-01-2022 inject 1 tablet by subcutaneous injection every eight hours as needed for nausea ondansetron (ZOFRAN-ODT) 4 MG disintegrating tablet Indications: Nausea Place 1 tablet under the tongue every 8 hours as needed for Nausea or Vomiting May sub regular tablet if insurance does not cover ODT. 9 tablet 0 08/01/2022 Active Start: 05-29-2022 End: 10-25-2022 take 4 mg by mouth every eight hours Ondansetron Discontinued 4 MG PO Q8H May 29, 2022 12:00am October 25, 2022 10:32am OXcarbazepine 300 mg oral tablet (20 sources) Anti-epileptic Agent Start: 08-15-2021 End: 10-25-2022 take 1 tablet by mouth once daily Oxcarbazepine (Trileptal) 150 mg Tablet Active 150 MG PO Daily October 25, 2022 12:00am Start: 08-15-2021 End: 10-25-2022 take 1 tablet by mouth at bedtime Oxcarbazepine (Trileptal) 300 mg Tablet Active 300 MG PO Bedtime October 25, 2022 12:00am take 1 tablet by tameka th every twelve hours Trileptal 150 MG 1 tablet Orally Twice a day Active predniSONE 20 mg oral tablet (14 sources) Start: 06-03-2022 take 1 tablet by mouth once daily predniSONE (DELTASONE) 20 MG tablet take 1 tablet by mouth once daily for 5 days 0 09/06/2022 Active Start: 08-15-2021 End: 08-17-2021 take 2 tablets by mouth once daily Prednisone Discontinued 40 MG PO Daily August 15, 2021 12:00am August 17, 2021 10:49am two tablets left take 2 tablets by mouth daily for 5 doses Start: 07-31-2021 End: 08-05-2021 take 2 tablets by mouth once daily predniSONE (DELTASONE) 20 MG tablet Take 2 tablets by mouth daily for 5 doses 10 tablet 0 07/31/2021 08/05/2021 Active Vit-Fe Fumarate-FA ( VITAMIN PO) (2 sources) End: 08-04-2020 Vit-Fe Fumarate-FA ( VITAMIN PO) Take by mouth 0 08/04/2020 Discontinued (LIST CLEANUP) Vit-Fe Fumarate-FA ( VITAMIN PO) Take by mouth 0 Active Promethazine (5 sources) Phenothiazine Start: 09-16-2022 take 5 mL by mouth every six hours for cough Promethazine DM oral syrup 5 mL, Oral, q6hr for cough, 120 mL, Refill(s) 0, [facility] #[id number], 157.5, cm, 09/16/22 7:22:00 EDT, Height/Length Dosing, 84, kg, 09/16/22 7:22:00 EDT, Weight Dosing Start Date: 09/16/22 Status: Ordered QUEtiapine 25 mg oral tablet (6 sources) Atypical Antipsychotic Start: 10-08-2022 take 1 tablet by mouth once daily QUEtiapine (SEROQUEL) 25 MG tablet Take 1 tablet by mouth nightly 0 10/08/2022 Active sulfamethoxazole 800 mg / trimethoprim 160 mg oral tablet (5 sources) Dihydrofolate Reductase Inhibitor Antibacterial, Sulfonamide Antimicrobial Start: 07-14-2022 sulfamethoxazole-t rimethoprim (BACTRIM DS;SEPTRA DS) 800-160 MG per tablet Start: 07-14-2022 take 1 tablet by tameka th twice daily at bedtime sulfamethoxazole-trimethoprim (BACTRIM DS;SEPTRA DS) 800-160 MG per tablet take 1 tablet by mouth twice a day IN THE MORNING and at bedtime for 3 days 0 07/14/2022 Active traZODone hydrochloride 100 mg oral tablet (20 sources) Serotonin Reuptake Inhibitor Start: 04-02-2022 traZODone (DESYREL) 100 MG tablet TAKE 1/2 (ONE-HALF) TO 1 (ONE) TABLET DAILY AT NIGHT 0 04/02/2022 Active Start: 08-15-2021 End: 08-15-2021 Trazodone Discontinued MG TA BLET August 15, 2021 12:00am August 15, 2021 5:29am Start: 07-16-2020 End: 10-25-2022 traZODONE 50 mg Tab Refills( s) 0 Start Date: 01/04/21 Status: Ordered Start: 09-08-2018 End: 10-02-2018 take 1 tablet by mouth once daily as needed for sleep traZODone (DESYREL) 50 MG tablet Indications: Anxiety , Depression, unspecified depression type Take 1 tablet by mouth nightly as needed for Sleep 30 tablet 0 09/17/2018 10/02/2018 Discontinued (LIST CLEANUP) take 1-2 tablets by mouth once daily at bedtime as needed for sleep traZODone (DESYREL) 100 MG tablet Take 100 mg by mouth nightly as needed for Sleep 1-2 tabs at bedtime as needed for sleep 0 Active triamcinolone acetonide 0.001 mg/mg topical ointment (1 source) Corticosteroid Start: 07-01-2020 End: 08-04-2020 triamcinolone (KENALOG) 0.1 % ointment Indications: Contact dermatitis, unspecified contact dermatitis type, unspecified trigger Apply topically 2 times daily 30 g 0 07/01/2020 08/04/2020 Discontinued (LIST CLEANUP) Zofran ODT 4 mg Tab-Dis (20 sources) Start: 08-28-2022 take 1 tablet by mouth every eight hours Zofran ODT 4 mg Tab-Dis 4 mg = 1 tab(s), Oral, q8hr, # 12 tab(s), Refills(s) 0 Start Date: 08/28/22 Status: Ordered Start: 07-14-2022 take 1 tablet by tameka th every eight hours Zofran ODT 4 mg Tab-Dis 4 mg = 1 tab(s), Oral, q8hr, # 12 tab(s), Refills(s) 0, Pharmacy: [id number], 157, cm, 07/14/22 2:01:00 EDT, Height/Length Dosing, 83.1, kg, 07/14/22 2:01:00 EDT, Weight Dosing Start Date: 07/14/22 Status: Ordered Start: 07-05-2021 take 1 tablet by tameka th every eight hours Zofran ODT 4 mg Tab-Dis 4 mg = 1 tab(s), Oral, q8hr, # 12 tab(s), Refills(s) 0, Pharmacy: [facility] #[id number], 157, cm, 07/04/21 23:26:00 EDT, Height/Length Dosing, 61, kg, 07/04/21 23:26:00 EDT, Weight Dosing Start Date: 07/05/21 Status: Ordered ZyrTEC D 5 mg-120 mg Tab-ER (15 sources) Start: 01-15-2022 take 1 tablet by mouth twice daily ZyrTEC D 5 mg-120 mg Tab-ER 1 tab(s), Oral, BID, 30 tab(s), Refill(s) 0, 158, cm, 01/15/22 12:06:00 EST, Height/Length Dosing, 73, kg, 01/15/22 12:06:00 EST, Weight Dosing Start Date: 11/15/22 Status: Ordered Completed/Discontinued Medications Medication Drug Class(es) Dates Sig (Normalized) Sig (Original) ALPRAZolam 0.25 mg oral tablet (1 source) Benzodiazepine Start: 11-18-2021 End: 11-18-2021 ALPRAZolam (XANAX) tablet 0.5 mg Start: 11-18-2021 End: 11-18-2021 ALPRAZolam (XANAX) tablet 0. 5 mg azithromycin 250 mg oral tablet (12 sources) Macrolide Antimicrobial Start: 06-03-2022 Azithromycin 250 MG 2 tablets on the first day, then 1 tablet daily for 4 days Orally Once a day for 5 day(s) Jun, Not-Taking/PRN Start: 05-17-2022 azithromycin 2 50 mg Tab 250 mg, Oral, As Directed, # 6 tab(s), Refills(s) 0, Pharmacy: [facility] #[id number], 157, cm, 05/17/22 9:42:00 EDT, Height/Length Dosing, 73, kg, 05/17/22 9:42:00 EDT, Weight Dosing Start Date: 05/17/22 Status: Ordered busPIRone hydrochloride 5 mg oral tablet (20 sources) Start: 08-15-2021 End: 08-17-2021 Buspirone Discontinued MG TABLET August 15, 2021 12:00am August 15, 2021 5:38am Start: 09-24-2020 End: 08-15-2021 take 7.5 mg by mouth three times daily Buspirone Discontinued 7.5 MG PO Three times daily September 24, 2020 12:00am August 15, 2021 5:31am take 1 tablet by tameka th three times daily busPIRone (BUSPAR) 5 MG tablet Take 5 mg by mouth 3 times daily 0 Active take 1 tablet by tameka th three times daily busPIRone (BUSPAR) 10 MG tablet Take 10 mg by mouth 3 (three) times a day . 0 Active chlorpheniramine maleate 4 mg oral tablet (7 sources) Histamine-1 Receptor Antagonist Start: 07-14-2020 End: 09-19-2020 take 1 tablet by mouth once daily Chlorpheniramine Maleate (Chlortabs) 4 mg Tablet Discontinued 4 MG PO Daily July 14, 2020 12:00am September 19, 2020 8:09am cholecalciferol 0.125 mg oral capsule (8 sources) Vitamin D Start: 09-24-2021 End: 10-25-2022 take 125 ug by mouth once daily Cholecalciferol (Vitamin D3) Discontinued 125 MCG PO Daily September 24, 2021 12:00am October 25, 2022 10:32am End: 12-05-2021 take 1 tablet by mouth in the morning Cholecalciferol (VITAMIN D3) 125 MCG (5000 UT) TABS Take 1 tablet by mouth in the morning. 0 12/05/2021 Discontinued (LIST CLEANUP) escitalopram 5 mg oral tablet (8 sources) Serotonin Reuptake Inhibitor Start: 06-21-2020 End: 08-04-2020 take 1 tablet by mouth once daily Escitalopram Oxalate (Lexapro) 5 mg Tablet Discontinued 5 MG PO Daily July 14, 2020 12:00am July 16, 2020 10:35am 2 ml ketorolac tromethamine 30 mg/ml cartridge (2 sources) Nonsteroidal Anti-inflammatory Drug, Cyclooxygenase Inhibitor Start: 07-28-2022 End: 07-28-2022 ketorolac (TORADOL) injection 45 mg Start: 07-11-2022 End: 07-11-2022 ketorolac (TORADOL) injectio n 30 mg lurasidone hydrochloride 60 mg oral tablet (20 sources) Atypical Antipsychotic Start: 10-25-2022 End: 10-27-2022 Lurasidone Discontinued 60 MG PO Every evening October 25, 2022 12:00am October 27, 2022 11:23am must administer with food (at least 350 calories) Start: 05-29-2022 End: 10-25-2022 take 1 tablet by mouth once daily Lurasidone (Latuda) 20 mg tablet Discontinued 20 MG PO Daily May 29, 2022 12:00am October 25, 2022 10:32am metFORMIN hydrochloride 500 mg oral tablet (9 sources) Biguanide Start: 07-16-2020 End: 07-31-2021 take 500 mg by mouth twice daily at mealtime Metformin Discontinued 500 MG PO Twice daily with meals 0 July 16, 2020 12:00am September 19, 2020 8:09am OLANZapine 5 mg oral tablet (7 sources) Atypical Antipsychotic Start: 09-24-2020 End: 08-15-2021 take 5 mg by mouth every six hours Olanzapine Discontinued 5 MG PO Q6H 15 September 24, 2020 12:00am August 15, 2021 5:32am oxymetazoline hydrochloride 0.5 mg/ml nasal spray (1 source) Start: 09-19-2022 End: 09-19-2022 oxymetazoline (AFRIN) 0.05 % nasal spray 2 spray [id number]-[id number] (7 sources) Start: 07-14-2020 End: 09-19-2020 take 1 tablet by mouth once daily Jhkjmuob-Rug-Ci-Fa Discontinued 1 TAB PO Daily July 14, 2020 9:56am September 19, 2020 8:09am Start: 07-14-2020 End: 09-19-2020 take 1 tablet by mouth once daily Qeuyjjey-Qzn-Fw-Fa Discontinued 1 TAB PO Daily July 14, 2020 12:00am September 19, 2020 8:09am sertraline 50 mg oral tablet (20 sources) Serotonin Reuptake Inhibitor Start: 10-10-2021 End: 10-25-2022 take 2 tablets by mouth once daily Sertraline Discontinued 50 MG PO Daily October 10, 2021 12:00am October 25, 2022 10:32am take with 100mg tablet Start: 10-10-2021 take 2 tablets by mo uth once daily Sertraline Active 50 MG PO Daily October 10, 2021 12:00am take with 100mg tablet Start: 08-17-2021 End: 09-21-2021 take 200 mg by mouth once daily Sertraline Discontinue d 200 MG PO Daily 60 August 17, 2021 12:00am September 21, 2021 4:12am Start: 08-15-2021 End: 08-17-2021 take 50 mg by mouth once daily Sertraline Discontinued 50 MG PO Daily August 15, 2021 12:00am August 17, 2021 10:49am Start: 07-19-2020 End: 10-25-2022 sertraline 100 mg Tab Refill s(s) 0 Start Date: 01/04/21 Status: Ordered Start: 07-16-2020 End: 07-19-2020 take 50 mg by mouth once daily in the morning Sertraline Discontinued 50 MG PO Every morning July 16, 2020 12:00am July 19, 2020 11:33am Start: 09-08-2018 End: 09-17-2018 take 2 tablets by mouth once daily sertraline (ZOLOFT) 100 MG tablet Indications: Current severe episode of major depressive disorder without psychotic features, unspecified whether recurrent (HCC) , Anxiety Take 2 tablets by mouth daily 60 tablet 0 09/17/2018 Active take 1 tablet by tameka th once daily sertraline (ZOLOFT) 25 MG tablet Take 25 mg by mouth daily . 0 Active valACYclovir 1000 mg oral tablet (3 sources) Herpesvirus Nucleoside Analog DNA Polymerase Inhibitor, Herpes Simplex Virus Nucleoside Analog DNA Polymerase Inhibitor, Herpes Zoster Virus Nucleoside Analog DNA Polymerase Inhibitor Start: 05-29-2022 End: 10-25-2022 take 1000 mg by mouth three times daily Valacyclovir Discontinued 1000 MG PO Three times daily 20 09May 29, 2022 12:00am October 25, 2022 10:32am Problems Active Problems Problem Classification Problem Date Documented Da te Episodic/Chronic Anxiety disorders (20 sources) Anxiety; Translations: [Generalized anxiety disorder] Onset: 11-20-2021 Resolved: 06-10-2022 07-28-2018 Chronic Bacterial infection; unspecified site (1 source) Other specified bacterial agents as the cause of diseases classified elsewhere; Translations: [Other specified bacterial agents as the cause of diseases classified elsewhere] Onset: 09-18-2022 Episodic Chronic obstructive pulmonary disease and bronchiectasis (2 sources) Bronchitis, not specified as acute or chronic; Translations: [Bronchitis] Onset: 09-16-2022 Episodic Conditions associated with dizziness or vertigo (17 sources) Dizziness and giddiness; Translations: [Dizziness and giddiness] Onset: 05-30-2022 Episodic Deficiency and other anemia (1 source) Anemia; Translations: [Anemia, unspecified] Episodic E Codes: Adverse effects of medical drugs (1 source) Vaccines adverse reaction; Translations: [Adverse effect of other vaccines and biological substances, initial encounter] Onset: 01-10-2023 Episodic Fluid and electrolyte disorders (2 sources) Hypokalemia; Translations: [Hypokalemia] Onset: 10-04-2021 Episodic Headache; including migraine (2 sources) Headache; Translations: [Nonintractable episodic headache, unspecified headache type] Onset: 09-30-2021 Episodic Headache; including migraine (4 sources) Headache; including migraine; Translations: [HEADACHE UNSPECIFIED] Onset: 10-02-2021 Menstrual disorders (1 source) Irregular periods; Translations: [Irregular menses] Chronic Miscellaneous mental health disorders (20 sources) Psychogenic vertigo; 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] Onset: 03-23-2019 03-23-2019 Chronic Mood disorders (20 sources) Depressive disorder; Translations: [Recurrent major depressive episodes] Onset: 08-10-2018 Resolved: 06-10-2022 09-09-2018 Chronic Mood disorders (1 source) Mood disorders; Translations: [Depression, unspecified] Onset: 10-23-2022 Nausea and vomiting (5 sources) Nausea; Translations: [Nausea] Onset: 08-28-2022 Episodic Other aftercare (1 source) Other terminal operations supervisor (current) drug therapy; Translations: [OTH DIRECTOR WHOLESALE CURRENT DRUG THERAPY] Onset: 06-13-2022 Episodic Other connective tissue disease (1 source) Enthesopathy; Translations: [Enthesopathy, unspecified] Onset: 03-14-2022 Episodic Other connective tissue disease (1 source) Hand pain; Translations: [Pain in unspecified hand] Onset: 03-29-2022 Episodic Other ear and sense organ disorders (1 source) Impacted cerumen, left ear; Translations: [Impacted cerumen, left ear] Onset: 02-06-2023 Episodic Other gastrointestinal disorders (1 source) Constipation, unspecified; Translations: [CONSTIPATION UNSPECIFIED] Onset: 04-23-2022 Episodic Other injuries and conditions due to external causes (1 source) Injury of head; Translations: [Unspecified injury of head, initial encounter] Onset: 09-30-2021 Episodic Other lower respiratory disease (3 sources) Cough; Translations: [Cough, unspecified] Onset: 05-07-2022 Episodic Other nervous system disorders (1 source) Other chronic pain; Translations: [Other chronic pain] Onset: 10-29-2022 Chronic Other non-traumatic joint disorders (1 source) Pain of right wrist; Translations: [Pain in right wrist] Episodic Other non-traumatic joint disorders (1 source) Chronic pain of right upper limb; Translations: [Pain in right wrist] Episodic Other non-traumatic joint disorders (1 source) Swollen ankle region; Translations: [Effusion, right ankle] Episodic Other nutritional; endocrine; and metabolic disorders (16 sources) Body mass index 25-29 - overweight; Translations: [Overweight (BMI 25.0-29.9)] Onset: 03-23-2019 03-23-2019 Chronic Other skin disorders (3 sources) Rash and other nonspecific skin eruption; Translations: [RASH OTH NONSPECIFIC SKIN ERUPTION] Onset: 05-21-2022 Episodic Other upper respiratory disease (1 source) Polyp of right nasal cavity; Translations: [Right nasal polyps] Onset: 03-23-2019 03-23-2019 Other upper respiratory infections (20 sources) Chronic frontal sinusitis; Translations: [Chronic pansinusitis] Onset: 08-15-2021 07-31-2021 Chronic Other upper respiratory infections (20 sources) Acute bacterial sinusitis; Translations: [Acute sinusitis] Onset: 03-23-2019 Resolved: 06-10-2022 03-23-2019 Episodic Otitis media and related conditions (2 sources) Acute serous otitis media of bilateral ears; Translations: [Acute serous otitis media, bilateral] Onset: 02-06-2023 Episodic Residual codes; unclassified (11 sources) Chill; Translations: [Chills (without fever)] Onset: 02-18-2023 Episodic Residual codes; unclassified (1 source) Left against medical advice; Translations: [Procedure and treatment not carried out due to patient leaving prior to being seen by health care provider] Onset: 11-14-2022 Episodic Screening and history of mental health and substance abuse codes (1 source) H/O: anxiety state; Translations: [Personal history of other mental and behavioral disorders] Episodic Syncope (3 sources) Syncope and collapse; Translations: [Syncope and collapse] Onset: 11-30-2021 Episodic Unclassified (20 sources) Patient encounter status; Translations: [Lipid screening] Unclassified (3 sources) COUGH, UNSPECIFIED; Translations: [COUGH, UNSPECIFIED] Onset: 06-07-2022 Unclassified (1 source) CONTACT W/AND (SUSP) EXPOS COVID-19; Translations: [CONTACT W/AND (SUSP) EXPOS COVID-19] Onset: 11-02-2021 Unclassified (1 source) Cough, unspecified; Translations: [Cough, unspecified] Onset: 10-31-2022 Unclassified (1 source) Pain in right hand; Translations: [Pain in right hand] Onset: 09-23-2022 Unclassified (1 source) Procedure and treatment not carried out due to patient leaving prior to being seen by health care provider; Translations: [Procedure and treatment not carried out due to patient leaving prior to being seen by health care provider] Onset: 05-30-2022 Unclassified (2 sources) Letter for School/Work; Translations: [Letter for School/Work] Onset: 02-18-2023 Unclassified (1 source) Chest Pain; Wrist Pain Onset: 12-05-2022 Unclassified (1 source) Contact with and (suspected) exposure to covid-19; Translations: [Contact with and (suspected) exposure to covid-19] Onset: 11-30-2022 Unclassified (1 source) Covid re-test Onset: 11-13-2022 Past or Other Problems Problem Classification Problem Date Documented Da te Episodic/Chronic Abdominal pain (8 sources) Unspecified abdominal pain; Translations: [Abdominal pain] Onset: 3 Episodic Administrative/social admission (9 sources) Homeless; Translations: [Homeless] Onset: 2 09-19-2020 Episodic Allergic reactions (20 sources) Atopic dermatitis; Translations: [Atopic dermatitis, unspecified] Onset: 0 Resolved: 3 03-23-2019 Chronic Cardiac dysrhythmias (20 sources) Tachycardia; Translations: [Tachycardia, unspecified] Onset: 0 Resolved: 3 03-23-2019 Episodic Deficiency and other anemia (1 source) Anemia, unspecified; Translations: [Anemia, unspecified] Onset: 3 Episodic Disorders of teeth and jaw (1 source) Other specified disorders of teeth and supporting structures; Translations: [Other specified disorders of teeth and supporting structures] Onset: 3 Episodic Noninfectious gastroenteritis (1 source) Noninfective gastroenteritis and colitis, unspecified; Translations: [NONINFECTIVE GE AND COLITIS UNS] Onset: 2 Episodic Nonmalignant breast conditions (20 sources) Breast hematoma due to non-traumatic cause; Translations: [Other specified disorders of breast] Onset: 0 Resolved: 3 03-23-2019 Episodic Nonspecific chest pain (20 sources) Tight chest; Translations: [Chest pain] Onset: 3 Episodic Osteoarthritis (20 sources) Degenerative joint disease of hand; Translations: [Primary osteoarthritis, right hand] Onset: 8 Resolved: 3 05-26-2017 Chronic Other gastrointestinal disorders (6 sources) Diarrhea; Translations: [Diarrhea, unspecified] Onset: 2 Episodic Other non-traumatic joint disorders (2 sources) Pain in right wrist; Translations: [Pain in right wrist] Onset: 3 Episodic Other non-traumatic joint disorders (1 source) Effusion, right ankle; Translations: [Effusion, right ankle] Onset: 3 Episodic Other non-traumatic joint disorders (1 source) Effusion, left ankle; Translations: [Effusion, left ankle] Onset: 3 Episodic Other non-traumatic joint disorders (3 sources) Pain in wrist; Translations: [Wrist Pain] Onset: 3 Episodic Other non-traumatic joint disorders (1 source) Pain in right knee; Translations: [Pain in right knee] Onset: 3 Episodic Other screening for suspected conditions (not mental disorders or infectious disease) (20 sources) Electrocardiogram abnormal; Translations: [Abnormal electrocardiogram [ECG] [EKG]] Onset: 0 03-23-2019 Episodic Other upper respiratory disease (20 sources) Allergic rhinitis; Translations: [Allergic rhinitis, unspecified] Onset: 9 Resolved: 3 03-23-2019 Chronic Other upper respiratory disease (20 sources) Polyp of right nasal cavity; Translations: [Nasal polyp, unspecified] Onset: 0 Resolved: 3 03-23-2019 Episodic Other upper respiratory disease (4 sources) Nasal congestion; Translations: [Nasal congestion] Onset: 2 Episodic Other upper respiratory disease (4 sources) Nasal congestion; Translations: [NASAL CONGESTION] Onset: 3 Episodic Poisoning by other medications and drugs (20 sources) Adverse reaction to drug; Translations: [Adverse effect of unspecified drugs, medicaments and biological substances, initial encounter] Onset: 0 Resolved: 3 03-23-2019 Episodic Residual codes; unclassified (20 sources) Insomnia; Translations: [Insomnia, unspecified] Onset: 0 Resolved: 3 03-23-2019 Episodic Residual codes; unclassified (1 source) Swelling - edema - symptom; Translations: [Edema, unspecified type] Episodic Residual codes; unclassified (5 sources) Procedure and treatment not carried out due to patient leaving prior to being seen by health care provider; Translations: [PROC AND TX NOT CARRIED OUT PT LEAVE] Onset: 3 Episodic Skin and subcutaneous tissue infections (2 sources) Abscess; Translations: [Abscess] Onset: 3 Episodic Sprains and strains (1 source) Unspecified sprain of right wrist, initial encounter; Translations: [Unspecified sprain of right wrist, initial encounter] Onset: 3 Episodic Suicide and intentional self-inflicted injury (20 sources) Suicidal thoughts; Translations: [Suicidal ideations] Onset: 9 Resolved: 3 09-06-2018 Episodic Superficial injury; contusion (2 sources) Injury of buttock; Translations: [Contusion of lower back and pelvis, initial encounter] Onset: 3 Episodic Unclassified (20 sources) Body mass index 25-29 - overweight; Translations: [Adult body mass index 25-29] Onset: 0 Resolved: 3 03-23-2019 Unclassified (1 source) Exposure to 2019 novel coronavirus; Translations: [Contact with and (suspected) exposure to COVID19] Unclassified (1 source) Cough R05.9 Unclassified (1 source) COUGH, UNSPECIFIED; Translations: [COUGH, UNSPECIFIED] Onset: 3 Viral infection (20 sources) Disseminated herpes zoster; Translations: [Disseminated zoster] Onset: 8 Resolved: 3 09-04-2017 Episodic Results Test Name Value Interpretation Reference Range Facility [id number] 03-04-2023 SARS-CoV-2 (COVID-19) RNA CHANTEL+probe Ql (Unsp spec) Not detected Normal [facility] [facility] Comment on above: Result Comment: Rapid NAAT: The specimen is NEGATIVE for SARS-CoV-2, the novel coronavirus associated with COVID-19. The ID NOW COVID-19 assay is designed to detect the virus that causes COVID-19 in patients with signs and symptoms of infection who are suspected of COVID-19. An individual without symptoms of COVID-19 and who is not shedding SARS-CoV-2 virus would expect to have a negative (not detected) result in this assay. Negative results should be treated as presumptive and, if inconsistent with clinical signs and symptoms or necessary for patient management, should be tested with an alternative molecular assay. Negative results do not preclude SARS-CoV-2 infection and should not be used as the sole basis for patient management decisions. Fact sheet for Healthcare Providers: https://www.fda.gov/media/206385/download Fact sheet for Patients: https://www.fda.gov/media/906901/download Methodology: Isothermal Nucleic Acid Amplification Performed By: #### C OVRB #### [facility] [address] [place] [address] Manager Cash: Quintin Cooper MD Urgent Care Office/Clinic No andreas 03-04-2023 Urgent Care Office/Clinic Note Chief Complaint pt states for the last almost 2 weeks fever, cough, headache, chiils. History of Present Illness A 43-year-old female presents with sinus congestion. She states that for a week or a week and a half she has been having sinus congestion, runny nose, cough, sinus pressure. She states that she has felt feverish and felt warm today while at work. She thinks she is having fevers but has not taken her temperature. She believes that she has a sinus infection requiring antibiotics. She denies any pain into her teeth, discolored nasal discharge. She has a history of seasonal allergies without history of sinus surgeries or current sinus infections to the point of needing ENT. She has not been taking anything for her symptoms. Review of Systems see HPI Physical Exam Vitals & Measurements T: 36.7 ?C (Oral) HR: 100 (Peripheral) RR: 18 BP: 111/81 SpO2: 98 HT: 158 cm WT: 84 kg WT: 84 kg (Dosing) BMI: 33.65 General statement: Dressed appropriate for season. Atraumatic normocephalic. No acute distress. Eyes: Pupils equal round and reactive to light, extraocular muscles intact, no redness or discharge. Ears: TMs canales bilaterally bulging with mid ear effusions with no retraction present. Canals are free of drainage and erythema. Nose: + rhinorrhea, mucosal edema, no epistaxis. + sinus tenderness to percussion (patient reports sinus tenderness before I percuss). Throat: Oropharynx erythematous but moist. Tonsils without inflammation or exudate. + postnasal drip. Neck: supple, full range of motion, bilateral anterior nontender cervical lymphadenopathy. Lungs: No accessory muscle usage Clear to auscultation bilaterally, no rales, rhonchi or wheezing noted. Heart: Regular in rate and rhythm, no murmur, gallop or thrills Skin: no rashes Additional Vitals No qualifying data available. Assessment/Plan 1. Viral sinusitis covid: negative 1) Patient started to drink at least 8 glasses of non-caffeinated nonalcoholic beverages per day. Rest and sleep. 2) Take Tylenol and Ibuprofen over the counter as needed for body aches, fever, pain. Take Tylenol (max 4000 mg a day; take up to 1000 mg every 6 hours as needed) and Ibuprofen (max 2400 mg a day; take up to 800 mg every 8 hours or 600 mg every 4 hours as needed) over the counter as needed for body aches, fever, pain. Take lowest dose possible to achieve relief. 3) For nasal congestion: Recommended patient use Flonase 2 sprays each nostril every a.m. May also use in the evening if needing a second dose. Pseudophedrine (nasal decongestant pills) but do not take with elevated blood pressure. Hot shower/steam sauna in the bathroom before bed Humidifier at night 4)For runny nose or sore throat secondary to post nasal drainage: Recommended patient start Zyrtec or Claritin 24-hour- take 1 tablet daily in a.m. (NonDrowsy) Can try Benadryl in PM (drowsy) 5) For cough: Mucinex DM for congested cough Delsym for Dry Cough Honey 6) Sore throat: Gargle with warm salt water Claritin/Zyrtec in AM for nondrowsy antihistamine (dries you up) Benadryl in PM for drowsy antihistamine Flonase nasal spray for postnasal drainage and sore throat Sore throat drops, cepacol, chloraseptic spray Warm tea with honey 7) If not better and the next 4 or 5 days followup with PCP. 8)If developing chest pain, shortness of breath, wheezing, worst headache in life, vision changes, coughing blood, unable to keep down fluids, leg swelling or calf pain: Go to the emergency room. Ordered: amoxicillin-clavulana te, 1 tabs, Oral, q12hr, X 7 days, # 14 tabs, 0 Refill(s), 03/16/23 18:58:00 EST, Pharmacy: [facility]/pharmacy #[id number] fluticasone nasal, 1 sprays, Nasal, qAM, # 16 g, 0 Refill(s), Pharmacy: [facility]/pharmacy #[id number] methylPREDNISolone, 1 packets, Oral, As Indicated, as directed on package labeling, X 6 days, # 21 tabs, 0 Refill(s), 03/10/23 18:57:00 EST, Pharmacy: [facility]/pharmacy #[id number] pseudoephedrine-guaif enesin, 1 tabs, Oral, q12hr, X 7 days, # 14 tabs, 0 Refill(s), 03/11/23 18:58:00 EST, Pharmacy: [facility]/pharmacy #[id number] Medical Decision Making Patient I had a long discussion regarding viral versus bacterial sinus infections. I do believe that at this point she is still having viral symptoms and she needs to try some [id number] remedies. She has not yet tried anything and should be very responsive to Mucinex D for her congestion. We discussed that if she is truly having fevers she needs to take her temperature and they should be resolving. If they are worsening or if she is having more severe symptoms or they are not improving with the Mucinex D and the steroids a viib-[id number]-ozr antibiotic is sent to the pharmacy Chronic conditions NOT treated during this visit that affected my overall medical decision making: [] Treatment plans discussed but not opted for at this time: [] Prescribed medication that requires intensive monitoring for toxicity: [] I have reviewed the patient?s medication list for medication interact (more content not included)... Normal [facility] Flu A/B Ag Detectionon 02-18 Flu A Ag Detection Negative Normal NEG [facility] Comment on above: Result Comment: for Influenza A Antigen Performed By: #### F CLAUDIAABA ####[facility] [place] [address] Lab Director: Quintin Cooper MD Flu B Ag Detection Negative Normal NEG [facility] Comment on above: Result Comment: for Influenza B Antigen. Performed By: #### F LUABA ####[facility] [place] [address] lab Director: Quintin Cooper MD [id number] 02-18-2023 SARS-CoV-2 (COVID-19) RNA CHANTEL+probe Ql (Unsp spec) Not detected Normal NOTDET [facility] Comment on above: Result Comment: Rapid NAAT: The specimen is NEGATIVE for SARS-CoV-2, the novel coronavirus associated with COVID-19. The ID NOW COVID-19 assay is designed to detect the virus that causes COVID-19 in patients with signs and symptoms of infection who are suspected of COVID-19. An individual without symptoms of COVID-19 and who is not shedding SARS-CoV-2 virus would expect to have a negative (not detected) result in this assay. Negative results should be treated as presumptive and, if inconsistent with clinical signs and symptoms or necessary for patient management, should be tested with an alternative molecular assay. Negative results do not preclude SARS-CoV-2 infection and should not be used as the sole basis for patient management decisions. Fact sheet for Healthcare Providers: https://www.fda.gov/media/753056/download Fact sheet for Patients: https://www.fda.gov/media/693467/download Methodology: Isothermal Nucleic Acid Amplification Performed By: #### C OVRB #### [facility] [address] [place], [place] [id number] Manager Cash: Quintin Cooper MD Cult,Urineon 02-11-2023 Cult,Urine Specimen Description .URINE, MIDSTREAM Culture NO GROWTH Report Status FINAL 02/11/2023 Normal [facility] Comment on above: Performed By: #### C DP, CP, HCG, DIME, TSHX, ALCB #### [facility] [address] [place] [address] Manager Cash: Quintin Cooper MD CBC with Diffon 02-10-2023 Abs. Basophil 0.01 k/uL Normal 0.00-0.20 [facility] Comment on above: Performed By: #### C DP, CP, HCG, DIME, TSHX, ALCB #### [facility] [address] [place] [address] Manager Cash: Quintin Cooper MD Abs.Imm.Granulocyte 0.00 k/uL Normal 0.00-0.30 [facility] Comment on above: Performed By: #### C DP, CP, HCG, DIME, TSHX, ALCB #### [facility] [address] [place] [address] Manager Cash: Quintin Cooper MD Abs.Neutrophil (Seg) 3.01 k/uL Normal 2.5-7.0 [facility] Comment on above: Performed By: #### C DP, CP, HCG, DIME, TSHX, ALCB #### [facility] [address] [place] [address] Manager Cash: Quintin Cooper MD Basophils/100 WBC (Bld) 0 % Normal 0-2 M [facility] Comment on above: Performed By: #### C DP, CP, HCG, DIME, TSHX, ALCB #### [facility] [address] [place] [phone] Manager Cash: Quintin Cooper MD Eosinophils (Bld) [#/Vol] 0.06 10*3/uL Normal 0.00-0.40 [facility] Comment on above: Performed By: #### C DP, CP, HCG, DIME, TSHX, ALCB #### [facility] [address] [place] [phone] Manager Cash: Quintin Cooper MD Eosinophils/100 WBC (Bld) 1 % Normal 0-5 [facility] Comment on above: Performed By: #### C DP, CP, HCG, DIME, TSHX, ALCB #### [facility] [address] [place] [phone] Manager Cash: Quintin Copoer MD Erythrocyte distribution width (RBC) [Ratio] 13.9 % Normal 12.1-15.2 [facility] Comment on above: Performed By: #### C DP, CP, HCG, DIME, TSHX, ALCB #### [facility] [address] [place] [phone] Manager Cash: Quintin Cooper MD Hematocrit (Bld) [Volume fraction] 37.0 % Normal 36.0-46.0 [facility] Comment on above: Performed By: #### C DP, CP, HCG, DIME, TSHX, ALCB #### [facility] [address] [place] [phone] Manager Cash: Quintin Cooper MD Hemoglobin (Bld) [Mass/Vol] 11.7 g/dL Low 12.0-16.0 [facility] Comment on above: Performed By: #### C DP, CP, HCG, DIME, TSHX, ALCB #### [facility] [address] [place] [phone] Manager Cash: Quintin Cooper MD Immature granulocytes/100 WBC (Bld) 0 % Normal 0-5 [facility] Comment on above: Performed By: #### C DP, CP, HCG, DIME, TSHX, ALCB #### [facility] [address] [place] [phone] Manager Cash: Quintin Cooper MD Lymphocytes (Bld) [#/Vol] 1.67 10*3/uL Normal 1.00-4.80 [facility] Comment on above: Performed By: #### C DP, CP, HCG, DIME, TSHX, ALCB #### [facility] [address] [place] [address] Manager Cash: Quintin Cooper MD Lymphocytes/100 WBC (Bld) 33 % Normal 15-40 [facility] Comment on above: Performed By: #### C DP, CP, HCG, DIME, TSHX, ALCB #### [facility] [address] [phone] Manager Cash: Quintin Cooper MD MCH (RBC) [Entitic mass] 25.7 pg Low 26.0-34.0 [facility] Comment on above: Performed By: #### C DP, CP, HCG, DIME, TSHX, ALCB #### [facility] [address] [place] [address] Manager Cash: Quintin Cooper MD MCHC (RBC) [Mass/Vol] 31.6 g/dL Normal 31.0-37.0 [facility] Comment on above: Performed By: #### C DP, CP, HCG, DIME, TSHX, ALCB #### [facility] [address] [place] [address] Manager Cash: Quintin Cooper MD MCV (RBC) [Entitic vol] 81.3 fL Normal 80.0-100.0 [facility] Comment on above: Performed By: #### C DP, CP, HCG, DIME, TSHX, ALCB #### [facility] [address] [place] [address] Manager Cash: Quintin Cooper MD Monocytes (Bld) [#/Vol] 0.31 10*3/uL Normal 0.00-1.00 [facility] Comment on above: Performed By: #### C DP, CP, HCG, DIME, TSHX, ALCB #### [facility] [address] [place] [address] Manager Cash: Quintin Cooper MD Monocytes/100 WBC (Bld) 6 % Normal 4-8 M [facility] Comment on above: Performed By: #### C DP, CP, HCG, DIME, TSHX, ALCB #### [facility] [address] [place] [address] Manager Cash: Quintin Cooper MD Neutrophil (Seg) 60 % Normal 47-75 [facility] Comment on above: Performed By: #### C DP, CP, HCG, DIME, TSHX, ALCB #### [facility] [address] [place] [address] Manager Cash: Quintin Cooper MD Platelet mean volume (Bld) [Entitic vol] 9.7 fL Normal 6.0-12.0 [facility] Comment on above: Performed By: #### C DP, CP, HCG, DIME, TSHX, ALCB #### [facility] [address] [place] [address] Manager Cash: Quintin Cooper MD Platelets (Bld) [#/Vol] 299 10*3/uL Normal 140-450 [facility] Comment on above: Performed By: #### C DP, CP, HCG, DIME, TSHX, ALCB #### [facility] [address] [place] [address] Manager Cash: Quintin Cooper MD RBC (Bld) [#/Vol] 4.55 10*6/uL Normal 4.00-5.20 [facility] Comment on above: Performed By: #### C DP, CP, HCG, DIME, TSHX, ALCB #### [facility] [address] [place] [address] Manager Cash: Quintin Cooper MD WBC (Bld) [#/Vol] 5.1 10*3/uL Normal 3.5-11.0 [facility] Comment on above: Performed By: #### C DP, CP, HCG, DIME, TSHX, ALCB #### [facility] [address] [place], [place] [id number] Manager Cash: Quintin Cooper MD Comp Metabolic Profon 2022 Albumin [Mass/Vol] 4.0 g/dL Normal 3.5-5.2 [facility] Comment on above: Performed By: #### C DP, CP, HCG, DIME, TSHX, ALCB #### [facility] [address] [place] [address] Manager Cash: Quintin Cooper MD Alkaline Phos 78 U/L Normal 35-104 [facility] Comment on above: Performed By: #### C DP, CP, HCG, DIME, TSHX, ALCB #### [facility] [address] [place] [address] Manager Cash: Quintin Cooper MD ALT [Catalytic activity/Vol] 10 U/L Normal 5-33 [facility] Comment on above: Performed By: #### C DP, CP, HCG, DIME, TSHX, ALCB #### [facility] [address] [place], [place] [phone] Manager Cash: Quintin Cooper MD Anion gap [Moles/Vol] 10 mmol/L Normal 9-17 [facility] Comment on above: Performed By: #### C DP, CP, HCG, DIME, TSHX, ALCB #### [facility] [address] [place], [place] [phone] Manager Cash: Quintin Cooper MD AST [Catalytic activity/Vol] 10 U/L Normal <32 [facility] Comment on above: Performed By: #### C DP, CP, HCG, DIME, TSHX, ALCB #### [facility] [address] [place], [place] [phone] Manager Cash: Quintin Cooper MD Bilirubin [Mass/Vol] 0.3 mg/dL Normal 0.3-1.2 [facility] Comment on above: Performed By: #### C DP, CP, HCG, DIME, TSHX, ALCB #### [facility] [address] [place] [phone] Manager Cash: Quintin Cooper MD BUN/CRE Ratio 23 High 9-20 [facility] Comment on above: Performed By: #### C DP, CP, HCG, DIME, TSHX, ALCB #### [facility] [address] [phone] Manager Cash: Quintin Cooper MD Calcium [Mass/Vol] 9.1 mg/dL Normal 8.6-10.4 [facility] Comment on above: Performed By: #### C DP, CP, HCG, DIME, TSHX, ALCB #### [facility] [address] [place] [address] Manager Cash: Quintin Cooper MD Chloride [Moles/Vol] 103 mmol/L Normal 98-107 [facility] Comment on above: Performed By: #### C DP, CP, HCG, DIME, TSHX, ALCB #### [facility] [address] [place] [address] Manager Cash: Quintin Cooper MD CO2 [Moles/Vol] 23 mmol/L Normal 20-31 [facility] Comment on above: Performed By: #### C DP, CP, HCG, DIME, TSHX, ALCB #### [facility] [address] [place] [phone] Manager Cash: Quintin Cooper MD Creatinine [Mass/Vol] 0.6 mg/dL Normal 0.5-0.9 [facility] Comment on above: Performed By: #### C DP, CP, HCG, DIME, TSHX, ALCB #### [facility] [address] [place], [place] [id number] Manager Cash: Quintin Cooper MD GFR/1.73 sq M.predicted among non-blacks MDRD (S/P/Bld) [Vol rate/Area] mL/min/{1.73_m2} Normal >60 [facility] Comment on above: Result Comment: These results are not intended for use in patients <18 years of age. eGFR results are calculated without a race factor using the 2020 CKD-EPI equation. Careful clinical correlation is recommended, particularly when comparing to results calculated using previous equations. The CKD-EPI equation is less accurate in patients with extremes of muscle mass, extra-renal metabolism of creatine, excessive creatine ingestion, or following therapy that affects renal tubular secretion. Performed By: #### C DP, CP, HCG, DIME, TSHX, ALCB #### [facility] [address] [place] [address] Manager Cash: Quintin Cooper MD Glucose [Mass/Vol] 104 mg/dL High 70-99 [facility] Comment on above: Performed By: #### C DP, CP, HCG, DIME, TSHX, ALCB #### [facility] [address] [place] [address] Manager Cash: Quintin Cooper MD Potassium [Moles/Vol] 4.0 mmol/L Normal 3.7-5.3 [facility] Comment on above: Performed By: #### C DP, CP, HCG, DIME, TSHX, ALCB #### [facility] [address] [place], [place] [phone] Manager Cash: Quintin Cooper MD Protein [Mass/Vol] 7.1 g/dL Normal 6.4-8.3 [facility] Comment on above: Performed By: #### C DP, CP, HCG, DIME, TSHX, ALCB #### [facility] [address] [place] [address] Manager Cash: Quintin Cooper MD Sodium [Moles/Vol] 136 mmol/L Normal 135-144 [facility] Comment on above: Performed By: #### C DP, CP, HCG, DIME, TSHX, ALCB #### [facility] [address] [place] [address] Manager Cash: Quintin Cooper MD Urea nitrogen [Mass/Vol] 14 mg/dL Normal 6-20 [facility] Comment on above: Performed By: #### C DP, CP, HCG, DIME, TSHX, ALCB #### [facility] [address] [place] [address] Manager Cash: Quintin Cooper MD D-Dimer Teston 02-10-2023 D-Dimer Test 0.32 ug/mL FEU Normal 0.00-0.59 [facility] Comment on above: Result Comment: When combined with a low clinical probability, a D dimer value of <0.50 ug/mL FEU is considered negative for DVT and PE (negative predictive value of 98%, sensitivity of 97%). If this test is not being used to help rule out DVT and PE, then the following reference range should be utilized: 0.00 - 0.59 ug/mL FEU. The D-Dimer assay is intended for use as an aid in the diagnosis of venous thromboembolism (DVT and PE) and the results should be interpreted in conjunction with the patient's medical history, clinical presentation, and other findings. Elevated levels of D-dimer activity can be seen in any state of coagulation activation and is not recommended in patients with therapeutic dose anticoagulant therapy for >24 hours, fibrinolytic therapy within the previous 7 days, trauma or surgery within the previous 4 weeks, disseminated malignancies, aortic aneurysm, sepsis, severe infections, pneumonia, severe skin infections, liver cirrhosis, advanced age, coronary disease, diabetes, and . A very low percentage of patients with DVT may yield D-dimer results below the cutoff of 0.5 ug/mL FEU. This is known to be more prevalent in patients with distal DVT. Performed By: #### C DP, CP, HCG, DIME, TSHX, ALCB #### [facility] [address] [place] [address] Manager Cash: Quintin Cooper MD Drug Scr, Abuse, Uron 2022 Amphetamine(s),Ur Negative Normal [facility] Comment on above: Result Comment: (Positive cutoff 1000 ng/mL) Performed By: #### C DP, CP, HCG, DIME, TSHX, ALCB #### [facility] [address], [place] [phone] Manager Cash: Quintin Cooper MD Barbiturate(s),Ur Negative Normal NEG [facility] Comment on above: Result Comment: (Positive cutoff 200 ng/mL) Performed By: #### C DP, CP, HCG, DIME, TSHX, ALCB #### [facility] [address] [place] [address] Manager Cash: Quintin Cooper MD Benzodiazepine(s) Negative Normal [facility] Comment on above: Result Comment: (Positive cutoff 200 ng/mL) Performed By: #### C DP, CP, HCG, DIME, TSHX, ALCB #### [facility] [address] [place], [place] [phone] Manager Cash: Quintin Cooper MD Cannabinoid(s),Ur Negative Normal [facility] Comment on above: Result Comment: (Positive cutoff 50 ng/mL) Performed By: #### C DP, CP, HCG, DIME, TSHX, ALCB #### [facility] [address] [place] [address] Manager Cash: Quintin Cooper MD Cocaine Metabolite Negative [facility] Comment on above: Result Comment: (Positive cutoff 300 ng/mL) Performed By: #### C DP, CP, HCG, DIME, TSHX, ALCB #### [facility] [address] [place] [address] Manager Cash: Quintin Cooper MD Fentanyl, Urine Negative Normal NEG [facility] Comment on above: Result Comment: (Positive cutoff 5 ng/ml) Performed By: #### C DP, CP, HCG, DIME, TSHX, ALCB #### [facility] [address] [place] [address] Manager Cash: Quintin Cooper MD Interpretive Info Assay provides medical screening only. The absence of expected drug(s) and/or Normal [facility] Comment on above: Result Comment: meta bolite(s) may indicate diluted or adulterated urine, limitations of testing or timing of collection. Testing for legal purposes should be confirmed by another method. To request confirmation of test result, please call the lab within 7 days of sample submission. Performed By: #### C DP, CP, HCG, DIME, TSHX, ALCB #### [facility] [address] [place] [address] Manager Cash: Quintin Cooper MD Methadone Ql (U) Negative Normal NEG [facility] Comment on above: Result Comment: (Positive cutoff 300 ng/mL) Performed By: #### C DP, CP, HCG, DIME, TSHX, ALCB #### [facility] [address] [place] [address] Manager Cash: Quintin Cooper MD Opiate(s), Ur Negative Normal [facility] Comment on above: Result Comment: (Positive cutoff 300 ng/mL) Performed By: #### C DP, CP, HCG, DIME, TSHX, ALCB #### [facility] [address] [place] [address] Manager Cash: Quintin Cooper MD Oxycodone, Urine Negative Normal NEG [facility] Comment on above: Result Comment: (Positive cutoff 100 ng/mL) Performed By: #### C DP, CP, HCG, DIME, TSHX, ALCB #### [facility] [address] [place] [address] Manager Cash: Quintin Cooper MD Phencyclidine, Ur Negative Normal NEG [facility] Comment on above: Result Comment: (Positive cutoff 25 ng/mL) Performed By: #### C DP, CP, HCG, DIME, TSHX, ALCB #### [facility] [address] [place] [address] Manager Cash: Quintin Cooper MD ED Note-Physicianon 02-11-20 ED Note-Physician Normal [facility] Comment on above: Result Comment: Elec tronically Signed By: David June PA-C\.br\Date and Time Signed: 02/03/23 09:02 EST\.br\Electronically Co-Signed By: Grant Dos Santos DO\.br\Date and Time Co-Signed: 02/10/23 12:21 EST Ethanol Alcoholon 02-10-2023 Ethanol [Mass/Vol] mg/dL Normal <10 [facility] Comment on above: Performed By: #### C DP, CP, HCG, DIME, TSHX, ALCB #### [facility] [address] [place], [place] [phone] Manager Cash: Quintin Cooper MD Ethanol percent <0.010 Normal [facility] Comment on above: Performed By: #### C DP, CP, HCG, DIME, TSHX, ALCB #### [facility] [address] [place] [address] Manager Cash: Quintin Cooper MD HCG Screen, Bloodon 02-11-20 HCG Screen, Blood Negative Normal NEG [facility] Comment on above: Result Comment: Spec imens with hCG levels near the threshold of the test (25 mIU/mL) may give a negative or indeterminate result. In such cases, another test should be performed with a new specimen in 48-72 hours. If early is suspected clinically in this setting, correlation with quantitative serum b-hCG level is suggested. [facility] has confirmed the use of plasma for this test. This has not been cleared or approved by the U.S. Food and Drug Administration. The FDA has determined that such clearance is not necessary. Performed By: #### C DP, CP, HCG, DIME, TSHX, ALCB #### [facility] [address] [place] [phone] Manager Cash: Quintin Cooper MD TSH w/reflex to FT4on 2022 Thyroid Stim. Horm. 1.83 uIU/mL Normal 0.30-5.00 [facility] Comment on above: Performed By: #### C DP, CP, HCG, DIME, TSHX, ALCB #### [facility] [address] [place] [address] Manager Cash: Quintin Cooper MD Urinalysis, Routineon 2022 Bilirubin, SemiQt,Ur Negative Normal NEG [facility] Comment on above: Performed By: #### C DP, CP, HCG, DIME, TSHX, ALCB #### [facility] [address] [phone] Manager Cash: Quintin Cooper MD Blood, Urine TRACE Abnormal NEG [facility] Comment on above: Performed By: #### C DP, CP, HCG, DIME, TSHX, ALCB #### [facility] [address] [phone] Manager Cash: Quintin Cooper MD Clarity (U) Hazy Abnormal CLEAR [facility] Comment on above: Performed By: #### C DP, CP, HCG, DIME, TSHX, ALCB #### [facility] [address] [place] [phone] Manager Cash: Quintin Cooper MD Color (U) Yellow Normal YEL [facility] Comment on above: Performed By: #### C DP, CP, HCG, DIME, TSHX, ALCB #### [facility] [address] [phone] Manager Cash: Quintin Cooper MD Comment Normal [facility] Comment on above: Performed By: #### C DP, CP, HCG, DIME, TSHX, ALCB #### [facility] [address] [place], [place] [phone] Manager Cash: Quintin Cooper MD Glucose Ql (U) Negative Normal NEG [facility] Comment on above: Performed By: #### C DP, CP, HCG, DIME, TSHX, ALCB #### [facility] [address] [place] [address] Manager Cash: Quintin Cooper MD Ketones Ql (U) Negative Normal NEG [facility] Comment on above: Performed By: #### C DP, CP, HCG, DIME, TSHX, ALCB #### [facility] [address] [place] [address] Manager Cash: Quintin Cooper MD Leukocyte esterase Test strip Ql (U) 2+ Abnormal NEG [facility] Comment on above: Performed By: #### C DP, CP, HCG, DIME, TSHX, ALCB #### [facility] [address] [place] [address] Manager Cash: Quintin Cooper MD Nitrite,Ur Negative Normal NEG [facility] Comment on above: Performed By: #### C DP, CP, HCG, DIME, TSHX, ALCB #### [facility] [address] [place] [address] Manager Cash: Quintin Cooper MD PH,Ur 6.0 Normal 5.0-8.0 [facility] Comment on above: Performed By: #### C DP, CP, HCG, DIME, TSHX, ALCB #### [facility] [address] [place] [address] Manager Cash: Quintin Cooper MD Protein Ql (U) TRACE Abnormal NEG [facility] Comment on above: Performed By: #### C DP, CP, HCG, DIME, TSHX, ALCB #### [facility] [address] [place] [address] Manager Cash: Quintin Cooper MD Spec. [place],Ur 1.025 Normal 1.005-1.030 [facility] Comment on above: Performed By: #### C DP, CP, HCG, DIME, TSHX, ALCB #### [facility] [address] [place] [address] Manager Cash: Quintin Cooper MD Urobilinogen,Ur Normal Normal 0.0-1.0 [facility] Comment on above: Performed By: #### C DP, CP, HCG, DIME, TSHX, ALCB #### [facility] [address] [place] [address] Manager Cash: Quintin Cooper MD Urinalysis,Microon 3 ----- Normal [facility] Comment on above: Performed By: #### C DP, CP, HCG, DIME, TSHX, ALCB #### [facility] [address] [place] [address] Manager Cash: Quintin Cooper MD Bacteria 2+ Abnormal NONE [facility] Comment on above: Performed By: #### C DP, CP, HCG, DIME, TSHX, ALCB #### [facility] [address] [place] [address] Manager Cash: Quintin Cooper MD Epithelial cells LM Ql (Urine sed) 5 TO 10 Normal [facility] Comment on above: Performed By: #### C DP, CP, HCG, DIME, TSHX, ALCB #### [facility] [address] [place] [address] Manager Cash: Quintin Cooper MD Urine RBC's 0 TO 2 Normal 0-2 [facility] Comment on above: Performed By: #### C DP, CP, HCG, DIME, TSHX, ALCB #### [facility] [address] [place] [address] Manager Cash: Quintin Cooper MD Urine WBC's 5 TO 10 Normal 0 [facility] Comment on above: Performed By: #### C DP, CP, HCG, DIME, TSHX, ALCB #### [facility] [address] [place] [address] Manager Cash: Quintin Cooper MD Auto Diffon 02-03-2023 Basophils/100 WBC (Bld) 0.6 % Normal 0.0-2.0 [facility] Comment on above: Order Comment: Order Added by Discern Expert. Performed By: #### 2 004878, 9130196, 94549488, 52440634, 6566437 ####[facility] [address] [place] [address] Basophils/Leukocytes Auto (Bld) [Pure # fraction] 0.0 E9/L Normal 0.0-0.2 [facility] Comment on above: Order Comment: Order Added by Discern Expert. Performed By: #### 2 340758, 1361815, 84613124, 17282287, 0423871 ####[facility] [address] [place] [address] Eosinophils/100 WBC (Bld) 1.4 % Normal 0.0-8.0 [facility] Comment on above: Order Comment: Order Added by Discern Expert. Performed By: #### 2 855619, 8912934, 35744980, 32397794, 7217030 ####[facility] [address] [place] [address] Eosinophils/Leukocytes Auto (Bld) [Pure # fraction] 0.1 E9/L Normal 0.0-0.5 [facility] Comment on above: Order Comment: Order Added by Discern Expert. Performed By: #### 2 155008, 5120510, 85025304, 43158383, 3940324 ####[facility] [address] [place] [address] Lymphocytes/100 WBC (Bld) 28.6 % Normal 14.0-50.0 [facility] Comment on above: Order Comment: Order Added by Discern Expert. Performed By: #### 2 469463, 9085179, 49475279, 20068409, 3535335 ####[facility] [address] [place] [address] Lymphocytes/Leukocytes Auto (Bld) [Pure # fraction] 1.4 E9/L Normal 1.0-4.0 [facility] Comment on above: Order Comment: Order Added by Discern Expert. Performed By: #### 2 415150, 7457893, 55470934, 40019112, 2423470 ####[address] [address] Monocytes/100 WBC (Bld) 6.5 % Normal 4.0-14.0 [facility] Comment on above: Order Comment: Order Added by Apple Expert. Performed By: #### 2 846052, 9699748, 72862065, 47055454, 5802328 ####[address] [address] Monocytes/Leukocytes Auto (Bld) [Pure # fraction] 0.3 E9/L Normal 0.2-1.0 [facility] Comment on above: Order Comment: Order Added by Apple Expert. Performed By: #### 2 944242, 6528588, 34463894, 68765200, 3850047 ####[address] [address] Neutrophils/100 WBC (Bld) 62.9 % Normal 36.0-75.0 [facility] Comment on above: Order Comment: Order Added by Apple Expert. Performed By: #### 2 159619, 0440360, 84851340, 94095730, 7592683 ####[place] [address] [place] [address] Neutrophils/Leukocytes Auto (Bld) [Pure # fraction] 3.0 E9/L Normal 2.0-7.5 [facility] Comment on above: Order Comment: Order Added by Apple Expert. Performed By: #### 2 522512, 4857205, 95719038, 97625458, 9685376 ####[facility] [address] [place] [address] BMPon 02-03-2023 Creatinine [Mass/Vol] 0.7 mg/dL Normal 0.5-1.3 [facility] Comment on above: Performed By: #### 2 621210, 7391321, 44887962, 40589295, 9171598 ####[facility] [address] [place] [address] Urea nitrogen [Mass/Vol] 10 mg/dL Normal 5-21 [facility] Comment on above: Performed By: #### 2 993704, 6572022, 21334302, 53235698, 0090657 ####[facility] [address] [place] [address] Urea nitrogen/Creatinine [Mass ratio] 14 No Units Normal 10-20 [facility] Comment on above: Performed By: #### 2 283807, 2201128, 84092552, 08168540, 9374477 ####[facility] [address] [place] [address] Anion gap [Moles/Vol] 9 mmol/L Normal 6-16 [facility] Comment on above: Performed By: #### 2 109674, 7457806, 60756195, 79114906, 2960305 ####[facility] [address] [place] [address] Calcium [Mass/Vol] 8.7 mg/dL Low 8.9-11.1 [facility] Comment on above: Performed By: #### 2 371263, 3732186, 37610061, 66758115, 7791557 ####[facility] [address] [place] [address] Chloride [Moles/Vol] 105 mmol/L Normal 101-111 [facility] Comment on above: Performed By: #### 2 518950, 0528656, 34520156, 59560362, 1474898 ####[facility] [address] [place] [address] CO2 [Moles/Vol] 25 mmol/L Normal 21-31 [facility] Comment on above: Performed By: #### 2 637653, 7886786, 28856527, 87317392, 3466442 ####[facility] [address] [place] [address] Glucose [Mass/Vol] 98 mg/dL Normal 55-199 [facility] Comment on above: Result Comment: If t his glucose result represents a fasting glucose, interpretation should refer to the following reference range: 55-99 mg/dL Performed By: #### 2 946285, 1986997, 44558349, 51605695, 8510537 ####[facility] [address] [place] [address] Potassium [Moles/Vol] 3.2 mmol/L Low 3.5-5.3 [facility] Comment on above: Performed By: #### 2 323098, 0907460, 21902697, 06659836, 6547136 ####[facility] [address] [place] [address] Sodium [Moles/Vol] 136 mmol/L Normal 135-145 [facility] Comment on above: Performed By: #### 2 660053, 8611254, 24751288, 71636243, 8267796 ####[facility] [address] [place] [address] CBC w/ Auto Diffon 3 Erythrocyte distribution width (RBC) [Ratio] 15.4 % High 10.9-14.2 [facility] Comment on above: Performed By: #### 2 399577, 1913337, 56233167, 64663318, 4826667 ####[facility] [address] [place] [address] Hematocrit (Bld) [Volume fraction] 34.0 % Normal 34.0-46.0 [facility] Comment on above: Performed By: #### 2 946907, 1944557, 39615998, 94044173, 2454253 ####[facility] [address] [place] [address] Hemoglobin (Bld) [Mass/Vol] 11.1 g/dL Low 12.0-16.0 [facility] Comment on above: Performed By: #### 2 178048, 7608148, 51365339, 66512678, 6903113 ####[facility] [address] [place] [address] MCH (RBC) [Entitic mass] 25.9 pg Low 27.0-34.0 [facility] Comment on above: Performed By: #### 2 085568, 8360314, 52498160, 53349633, 3096072 ####[address] [address] MCHC (RBC) [Mass/Vol] 32.6 g/dL Normal 31.4-36.0 [facility] Comment on above: Performed By: #### 2 226320, 9933073, 82190297, 75202258, 4045992 ####[facility] [address] [place] [address] MCV (RBC) [Entitic vol] 79.6 fL Low 80.0-100.0 [facility] Comment on above: Performed By: #### 2 701853, 1123423, 13991741, 43690087, 4986644 ####[facility] [address] [place] [address] Platelet mean volume (Bld) [Entitic vol] 7.7 fL Normal 6.4-10.8 [facility] Comment on above: Performed By: #### 2 903797, 0980422, 35148207, 80537085, 0924737 ####[facility] [address] [place] [address] Platelets (Bld) [#/Vol] 324.0 E9/L Normal 150.0-500.0 [facility] Comment on above: Performed By: #### 2 428582, 6266153, 29196793, 86845235, 4598314 ####[facility] [address] [place] [address] RBC (Bld) [#/Vol] 4.3 E12/L Normal 4.3-5.9 [facility] Comment on above: Performed By: #### 2 291160, 4947847, 99029213, 43272131, 6980358 ####[facility] [address] [place] [address] WBC corrected for nucl RBC Auto (Bld) [#/Vol] 4.8 E9/L Normal 4.0-11.0 [facility] Comment on above: Performed By: #### 2 776058, 4298792, 93181440, 58028462, 3638763 ####[facility] [address] [place] [address] CHEMISTRYOrdered By: SYSTEM SYSTEM on 02-03-2023 Anion gap [Moles/Vol] 9 mmol/L Normal 6 - 16 mEq/L [facility] Remisol Calcium [Mass/Vol] 8.7 mg/dL Low 8.9 - 11. 1 mg/dL [facility] Chloride [Moles/Vol] 105 mmol/L Normal 101 - 1 11 mmol/L [facility] Remisol CO2 [Moles/Vol] 25 mmol/L Normal 21 - 31 mmol/L [facility] Creatinine [Mass/Vol] 0.7 mg/dL Normal 0.5 - 1.3 mg/dL [facility] Remisol GFR/1.73 sq M.predicted among non-blacks MDRD (S/P/Bld) [Vol rate/Area] 109 mL/min/1.73 m2 Normal >=59mL/min/ 1.73 m2 [facility] Chem S Comment on above: Interpretive Data: C hronic kidney disease could be indicated at eGFR's of less than 60 mL/min/1.73m2. Kidney failure is indicated at less than 15 mL/min/1.73m2. Glucose [Mass/Vol] 98 mg/dL Normal 55 - 199 mg/dL [facility] Remisol Comment on above: Interpretive Data: I f this glucose result represents a fasting glucose, interpretation should refer to the following reference range: 55-99 mg/dL Potassium [Moles/Vol] 3.2 mmol/L Low 3.5 - 5.3 mmol/L [facility] Sodium [Moles/Vol] 136 mmol/L Normal 135 - 145 mmol/L [facility]isol Troponin I.cardiac [Mass/Vol] pg/mL Low 10.10 - 27.10 pg/mL [facility] Comment on above: Interpretive Data: T he 95% CI (Confidence Interval) PPV (Positive Predictive Value) for myocardial infarction in females is 38 pg/mL, in males 51 pg/mL. The results should be used in conjunction with clinical conditions of myocardial infarction. (Access High Sensitivity Troponin I Instructions For Use, Filipe [place], October 2017) Urea nitrogen [Mass/Vol] 10 mg/dL Normal 5 - 21 mg/dL [facility] Remisol Urea nitrogen/Creatinine [Mass ratio] 14 mg/mg Normal 10 - 20 [facility] Consent for Treatmenton Consent for Treatment [id number]#1 .00TIFF Normal [facility] Discharge Instructionson Discharge Instructions [id number]#1 .00TIFF Normal [facility] ED Clinical Summaryon 2022 ED Clinical Summary Normal [facility] ED Patient Education Noteon 02-03-2023 ED Patient Education Note Normal [facility] ED Patient Summaryon 023 ED Patient Summary Normal [facility] HEMATOLOGYOrdered By: SYSTEM SYSTEM on 02-03-2023 Basophils/100 WBC (Bld) 0.6 % Normal 0.0 - 2.0 % [facility] HemeAutoSS Basophils/Leukocytes Auto (Bld) [Pure # fraction] 0.0 E9/L Normal 0.0 - 0.2 E9/L [facility] HemeAutoSS Eosinophils/100 WBC (Bld) 1.4 % Normal 0.0 - 8.0 % [facility] HemeAutoSS Eosinophils/Leukocytes Auto (Bld) [Pure # fraction] 0.1 E9/L Normal 0.0 - 0.5 E9/L [facility] HemeAutoSS Lymphocytes/100 WBC (Bld) 28.6 % Normal 14.0 - 50.0 % [facility] HemeAutoSS Lymphocytes/Leukocytes Auto (Bld) [Pure # fraction] 1.4 E9/L Normal 1.0 - 4.0 E9/L [facility] HemeAutoSS Monocytes/100 WBC (Bld) 6.5 % Normal 4.0 - 14.0 % [facility] HemeAutoSS Monocytes/Leukocytes Auto (Bld) [Pure # fraction] 0.3 E9/L Normal 0.2 - 1.0 E9/L [facility] HemeAutoSS Neutrophils/100 WBC (Bld) 62.9 % Normal 36.0 - 75.0 % [facility] HemeAutoSS Neutrophils/Leukocytes Auto (Bld) [Pure # fraction] 3.0 E9/L Normal 2.0 - 7.5 E9/L [facility] HemeAutoSS HEMATOLOGYOrdered By: Marlene Ortiz on 02-03-2023 Erythrocyte distribution width (RBC) [Ratio] 15.4 % High 10.9 - 14.2 % [facility] HemeAutoSS Hematocrit (Bld) [Volume fraction] 34.0 % Normal 34.0 - 46.0 % [facility] HemeAutoSS Hemoglobin (Bld) [Mass/Vol] 11.1 g/dL Low 12.0 - 16.0 gm/dL [facility] HemeAutoSS MCH (RBC) [Entitic mass] 25.9 pg Low 27.0 - 34.0 pg [facility] HemeAutoSS MCHC (RBC) [Mass/Vol] 32.6 g/dL Normal 31.4 - 36.0 gm/dL [facility] HemeAutoSS MCV (RBC) [Entitic vol] 79.6 fL Low 80.0 - 100.0 fL [facility] HemeAutoSS Platelet mean volume (Bld) [Entitic vol] 7.7 fL Normal 6.4 - 10.8 fL [facility] HemeAutoSS Platelets (Bld) [#/Vol] 324.0 E9/L Normal 150. 0 - 500.0 E9/L [facility] HemeAutoSS RBC (Bld) [#/Vol] 4.3 E12/L Normal 4.3 - 5.9 E12/L [facility] HemeAutoSS WBC corrected for nucl RBC Auto (Bld) [#/Vol] 4.8 E9/L Normal 4.0 - 11.0 E9/L [facility] HemeAutoSS Monitor Recordon 02-03-2023 Monitor Record [id number]# 1.00TIFF Normal [facility] Prescriptions/Work Noteson 1 04-06-2022 Prescriptions/Work Notes [id number]#1 .00TIFF Normal [facility] Troponin 0 Hr.on 02-03-2023 Troponin I.cardiac [Mass/Vol] ng/mL Low 10.10-27.10 [facility] Comment on above: Result Comment: The 95% CI (Confidence Interval) PPV (Positive Predictive Value) for myocardial infarction in females is 38 pg/mL, in males 51 pg/mL. The results should be used in conjunction with clinical conditions of myocardial infarction.(Access High Sensitivity Troponin I Instructions For Use, Filipe [place], October 2017) Performed By: #### 2 056420, 1764762, 93654693, 97023930, 1854021 ####[facility] [address] [place] [address] UA With Cult Reflexon 2022 Bacteria LM Ql (Urine sed) TRACE Normal Trace [facility] Comment on above: Performed By: #### 1 [id number] ####[facility] [address] [place] [address] Bilirubin Ql (U) Negative Normal Negative [facility] Comment on above: Performed By: #### 1 3154038 ####[facility] [address] [place] [address] Clarity (U) SL CLOUDY Abnormal Clear [facility] Comment on above: Performed By: #### 1 6457040 ####[facility] [address] [place] [address] Color (U) YELLOW Normal Yellow [facility] Comment on above: Performed By: #### 1 8148192 ####[facility] [address] [place] [address] Epithelial cells.squamous LM.HPF (Urine sed) [#/Area] 5-8 Normal 0-2 [facility] Comment on above: Performed By: #### 1 2979268 ####[facility] [address] [place] [address] Glucose Test strip (U) [Mass/Vol] Negative Normal Negative [facility] Comment on above: Performed By: #### 1 6109567 ####[facility] [address] [place] [address] Hemoglobin Ql (U) Negative Normal Negative [facility] Comment on above: Performed By: #### 1 3512315 ####[facility] [address] [place] [address] Ketones (U) [Mass/Vol] Negative Normal Negative [facility] Comment on above: Performed By: #### 1 0375006 ####[address] [place] [address] [place].plasma/[place]. RBC (Bld) [Mass ratio] 0-3 Normal 0-3 [facility] Comment on above: Performed By: #### 1 7182514 ####[facility] [address] [place] [address] Mucus Ql (Urine sed) 2+ Normal [facility] Comment on above: Performed By: #### 1 8777037 ####[address] [place] [address] Nitrite Ql (U) Negative Normal Negative [facility] Comment on above: Performed By: #### 1 3255042 ####[facility] [address] [place] [address] pH (U) 6.0 [pH] Invalid Interpretation Code 5.0-9.0 [facility] Comment on above: Performed By: #### 1 3574572 ####[address] [place] [address] Protein (U) [Mass/Vol] Negative Normal Negative [facility] Comment on above: Performed By: #### 1 9724325 ####[address] [place] [address] Specific gravity (U) [Rel density] >=1.030 Invalid Interpretation Code 1.005-1.030 [facility] Comment on above: Performed By: #### 1 5846716 ####[place] [address] Type of Urine collection method Clean Catch Normal [facility] Comment on above: Performed By: #### 1 2382892 ####[place] [address] Urobilinogen Qn (U) 0.2 {Sandee'U}/dL Normal 0.0-1.0 [facility] Comment on above: Performed By: #### 1 8277192 ####[place] [address] WBC Auto Ql (U) Negative Normal Negative [facility] Comment on above: Performed By: #### 1 4122185 ####[place] [address] WBC LM.HPF (Urine sed) [#/Area] 0-5 Normal 0-5 [facility] Comment on above: Performed By: #### 1 1003692 ####[place] [address] URINALYSISOrdered By: Kallie Hilliard on 02-03-2023 Bacteria LM Ql (Urine sed) Trace /HPF Normal Trace/HPF [facility] UA Auto SS Bilirubin Ql (U) Negative (02/03/23 8:10 AM) Normal Negative [facility] UA Auto SS Clarity (U) Slightly Cloudy *ABN* (02/03/23 8:10 AM) Invalid Interpretation Code Clear [facility] UA Auto SS Color (U) Yellow (02/03/23 8:10 AM) Normal Yellow [facility] UA Auto SS Epithelial cells.squamous LM.HPF (Urine sed) [#/Area] 5-8 /HPF Normal 0-2/HPF [facility] UA Aut o SS Glucose Test strip (U) [Mass/Vol] Negative (02/03/23 8:10 AM) Normal Negative [facility] UA Auto SS Hemoglobin Ql (U) Negative (02/03/23 8:10 AM) Normal Negative [facility] UA Auto SS Ketones (U) [Mass/Vol] Negative (02/03/23 8:10 AM) Normal Negative [facility] UA Auto SS Avoca.plasma/Avoca. RBC (Bld) [Mass ratio] 0-3 /HPF Normal 0-3/HPF [facility] UA A uto SS Mucus Ql (Urine sed) 2+ (02/03/23 8:10 AM) Normal [facility] UA Auto SS Nitrite Ql (U) Negative (02/03/23 8:10 AM) Normal Negative [facility] UA Auto SS pH (U) 6.0 *NA* (02/03/23 8:10 AM) Invalid Interpretation Code 5.0 - 9.0 [facility] UA Auto SS Protein (U) [Mass/Vol] Negative (02/03/23 8:10 AM) Normal Negative [facility] UA Auto SS Specific gravity (U) [Rel density] >=1.030 *NA* (02/03/23 8:10 AM) Invalid Interpretation Code 1.005 - 1.030 [facility] UA Auto SS UA Spec Desc Clean Catch (02/03/23 8:10 AM) Normal [facility] UA Auto SS Urobilinogen Qn (U) 0.8331946 {Sandee'U}/dL Normal 0.0 - 1.0 EU/dL [facility] UA Auto SS WBC Auto Ql (U) Negative (02/03/23 8:10 AM) Normal Negative [facility] UA Auto SS WBC LM.HPF (Urine sed) [#/Area] 0-5 /HPF Normal 0-5/HPF [facility] UA Auto SS eGFRon 02-03-2023 GFR/1.73 sq M.predicted among non-blacks MDRD (S/P/Bld) [Vol rate/Area] 109 mL/min/1.73 m2 Normal >=59 [facility] Comment on above: Order Comment: Order added by Discern Expert. Result Comment: Report Programmer akbar kidney disease could be indicated at eGFR's of less than 60 mL/min/1.73m2. Kidney failure is indicated at less than 15 mL/min/1.73m2. Performed By: #### 2 [id number] ####[facility] [id number] [place] [address] .UA Microscp Aon 11-30-2023 UA Bacteria Present Abnormal Absent [facility] Comment on above: Performed By: #### . Urinalysis Microscopic Man #### [place] [address] UA Mucus Present Normal Absent [facility] Comment on above: Performed By: #### . Urinalysis Microscopic Man #### [place] [address] UA RBC Quant 0 /HPF Normal 0-5 [facility] Comment on above: Performed By: #### . Urinalysis Microscopic Man #### [place] [address] UA Squepi Cells Quant 14 /HPF Normal 0-29 [facility] Comment on above: Performed By: #### . Urinalysis Microscopic Man #### [place] [address] UA WBC Quant 2 /HPF Normal 0-5 [facility] Comment on above: Performed By: #### . Urinalysis Microscopic Man #### [place] [address] .eGFRon 01-30-2023 GFR/1.73 sq M.predicted MDRD (S/P/Bld) [Vol rate/Area] mL/min/{1.73_m2} Normal >=60 [facility] Comment on above: Result Comment: [facility] Laboratories have implemented the eGFR calculation approach that does not have a coefficient for race and that conforms to the NKF-ASN Task Force Recommendations. Stages of Chronic Kidney Disease GFR Stage 3a Mild to moderate loss of kidney function 59 to 45 Stage 3b Moderate to severe loss of kidney function 44 to 33 Stage 4 Severe loss of kidney function 29 to 15 Stage 5 Kidney failure Less than 15 GFR calculated using the CKD-Epi Creatinine Equation (2020): eGFR = 142 X min(SCr/?, 1)? X max(SCr /?, 1)-1.200 X 0.9938Age X 1.012 [if female] Abbreviations/Units: eGFR (estimated glomerular filtration rate) = mL/min/1.73 m2 SCr (standardized serum creatinine) = mg/dL ? = 0.7 (females) or 0.9 (males) ? = -0.241 (females) or -0.302 (males) min = indicates the minimum of SCr/? or 1 max = indicates the maximum of SCr/? or 1 Age = years Performed By: #### . Urinalysis Microscopic Man #### [facility] [address] [place] [address] CBC w/ Diffon 01-30-2023 Erythrocyte distribution width (RBC) [Ratio] 15.5 % High 11.6-14.8 [facility] Comment on above: Performed By: #### A LC #### [address] [address] Hematocrit (Bld) [Volume fraction] 36.2 % Normal 36.0-46.0 [facility] Comment on above: Performed By: #### A LC #### [address] [address] Hemoglobin (Bld) [Mass/Vol] 11.7 g/dL Low 12.0-16.0 [facility] Comment on above: Performed By: #### A LC #### [facility] [address] [place] [address] MCH (RBC) [Entitic mass] 26.2 pg Low 27.0-35.0 [facility] Comment on above: Performed By: #### A LC #### [address] [address] MCHC 32.4 % Normal 31.0-37.0 [facility] Comment on above: Performed By: #### A LC #### [address] [address] MCV (RBC) [Entitic vol] 80.8 fL Normal 80.0-100.0 B [facility] Comment on above: Performed By: #### A LC #### [address] [address] Platelet 366 x10*3/mcL Normal 150-450 [facility] Comment on above: Performed By: #### A LC #### [address] [address] Platelet mean volume (Bld) [Entitic vol] 8.5 fL Normal 6.7-10.6 [facility] Comment on above: Performed By: #### A LC #### [address] [address] RBC 4.48 x10*6/mcL Normal 3.80-5.20 [facility] Comment on above: Performed By: #### A LC #### [address] [address] WBC 7.5 x10*3/mcL Normal 4.5-11.0 [facility] Comment on above: Performed By: #### A LC #### [address] [address] CMPon 01-30-2023 Albumin [Mass/Vol] 4.0 g/dL Normal 3.2-4.9 [facility] Comment on above: Performed By: #### A LC #### [address] [address] Albumin/Globulin [Mass ratio] 1.2 {ratio} Normal 1.1-2.2 [facility] Comment on above: Performed By: #### A LC #### [address] [address] Alk Phos 78 IU/L Normal 32-91 [facility] Comment on above: Performed By: #### A LC #### [address] [address] ALT [Catalytic activity/Vol] 21 U/L Normal 14-54 [facility] Comment on above: Performed By: #### A LC #### [address] [address] Anion gap [Moles/Vol] 14 mmol/L Normal 7-17 [facility] Comment on above: Performed By: #### A LC #### [address] [address] AST [Catalytic activity/Vol] 19 U/L Normal 15-41 [facility] Comment on above: Performed By: #### A LC #### [facility] [address] [place] [address], [place] [address] Bili Total 0.1 mg/dL Low 0.3-1.2 [facility] Comment on above: Performed By: #### A LC #### [facility] [address] [place] [address] Calcium [Mass/Vol] 9.0 mg/dL Normal 8.5-10.3 [facility] Comment on above: Performed By: #### A LC #### [address] [place] [address] Chloride [Moles/Vol] 106 mmol/L Normal 98-110 [facility] Comment on above: Performed By: #### A LC #### [address] [place] [address] CO2 [Moles/Vol] 23 mmol/L Normal 22-32 [facility] Comment on above: Performed By: #### A LC #### [address] [place] [address] Creatinine [Mass/Vol] 0.73 mg/dL Normal 0.44-1.03 [facility] Comment on above: Performed By: #### A LC #### [address] [place] [address] Glucose [Mass/Vol] 108 mg/dL High 70-99 [facility] Comment on above: Performed By: #### A LC #### [address] [place] [address] Potassium [Moles/Vol] 3.8 mmol/L Normal 3.4-4.8 [facility] Comment on above: Performed By: #### A LC #### [address] [place] [address] Protein [Mass/Vol] 7.4 g/dL Normal 6.5-8.1 [facility] Comment on above: Performed By: #### A LC #### [address] [place] [address] Sodium [Moles/Vol] 139 mmol/L Normal 133-142 [facility] Comment on above: Performed By: #### A LC #### [address] [address] Urea nitrogen [Mass/Vol] 11 mg/dL Normal 8-26 [facility] Comment on above: Performed By: #### A LC #### [address] [address] Urea nitrogen/Creatinine [Mass ratio] 15.1 mg/mg Normal 10.0-20.0 [facility] Comment on above: Performed By: #### A LC #### [address] [address] Diff Autoon 01-30-2023 Baso Absolute 0.0 x10*3/mcL Normal 0.0-0.2 [facility] Comment on above: Performed By: #### . Urinalysis Microscopic Man #### [address] [address] Basophils/100 WBC (Bld) 0.5 % Normal 0.0-1.5 [facility] Comment on above: Performed By: #### . Urinalysis Microscopic Man #### [address] [address] Eos Absolute 0.1 x10*3/mcL Normal 0.0-0.4 [facility] Comment on above: Performed By: #### . Urinalysis Microscopic Man #### [address] [address] Eosinophils/100 WBC (Bld) 0.9 % Normal 0.0-5.4 [facility] Comment on above: Performed By: #### . Urinalysis Microscopic Man #### [address] [address] Lymph Absolute 2.2 x10*3/mcL Normal 1.0-4.8 [facility] Comment on above: Performed By: #### . Urinalysis Microscopic Man #### [address] [address] Lymphocytes/100 WBC (Bld) 30.0 % Normal 27.2-40.8 [facility] Comment on above: Performed By: #### . Urinalysis Microscopic Man #### [place] [id number] [place] Absolute 0.5 x10*3/mcL Normal 0.1-1.1 [facility] Comment on above: Performed By: #### . Urinalysis Microscopic Man #### [place] [address] Monocytes/100 WBC (Bld) 6.5 % Normal 3.7-11.9 B [facility] Comment on above: Performed By: #### . Urinalysis Microscopic Man #### [place] [address] Neutro Absolute 4.7 x10*3/mcL Normal 1.8-7.7 [facility] Comment on above: Performed By: #### . Urinalysis Microscopic Man #### [place] [address] Neutro Auto 62.1 % Normal 47.2-70.8 [facility] Comment on above: Performed By: #### . Urinalysis Microscopic Man #### [place] [id number] ED Clinical Summaryon 2022 ED Clinical Summary [place] [id number] ED Clinical Summary Person Information Name: Rosangela Lindo Cristy/[facility] Age: 43 Years : 1980 Sex: Female PCP: Shan Rivas DO Marital Status: Phone: Race: White Ethnicity: Not or Language: Luxembourger Visit Reason: Dizziness; faintness Acuity: 3 Enc Type: Emergency Med Service: Emergency Medicine Arrival: 01/29/2023 22:02:56 Discharge: 01/30/2023 00:16:00 LOS: 000 02:14 Checkin: 01/29/2023 22:02:56 Checkout: 01/30/2023 00:16:00 Dispo Type: Home or Self Care Address: [address] [place] [phone] Provider Notes: Diagnosis: 1:Dizziness Problems No Problems Documented Smoking Status: Smoking Status Never (less than 100 in lifetime) Functional Status: Sensory Deficits: History of Falls: Mobility Assistance Prior to Admission: ADLs: Current Level of Assistance for Self-Care/Mobility: Cognitive Status: Allergies No Known Medication Allergies No Known Allergies Laboratory or Other Results This Visit (last charted value for your 01/29/2023 visit) Hematology 01/29/2023 11:53 PM WBC: 7.5 x10 RBC: 4.48 x10 Neutro Auto: 62.1 % -- Normal range between ( 47.2 and 70.8 ) Lymph Auto: 30.0 % -- Normal range between ( 27.2 and 40.8 ) [place] Auto: 6.5 % -- Normal range between ( 3.7 and 11.9 ) Eos Auto: 0.9 % -- Normal range between ( 0.0 and 5.4 ) Basophil Auto: 0.5 % -- Normal range between ( 0.0 and 1.5 ) Baso Absolute: 0.0 x10 MCV: 80.8 fL -- Normal range between ( 80.0 and 100.0 ) MCHC: 32.4 % -- Normal range between ( 31.0 and 37.0 ) Lymph Absolute: 2.2 x10 Hct: 36.2 % -- Normal range between ( 36.0 and 46.0 ) [place] Absolute: 0.5 x10 MCH: 26.2 pg -- Normal range between ( 27.0 and 35.0 ) Neutro Absolute: 4.7 x10 Hgb: 11.7 g/dL -- Normal range between ( 12.0 and 16.0 ) Mean Platelet Volume: 8.5 fL -- Normal range between ( 6.7 and 10.6 ) Platelet: 366 x10 Eos Absolute: 0.1 x10 RDW: 15.5 % -- Normal range between ( 11.6 and 14.8 ) Urinalysis 01/29/2023 10:54 PM UA Color: Yellow UA Urobilinogen: 0.2 mg/dL UA Bili: Negative UA Ketones: Trace mg/dL UA Leukocyte Esterase: Negative UA Nitrite: Negative UA Glucose: Normal mg/dL UA Bacteria: Present /HPF UA Protein: 30 mg/dL UA Blood: Negative UA Spec Grav: 1.039 -- Normal range between ( 1.003 and 1.035 ) UA pH: 6.0 UA Clarity: Clear UA Source: Clean Catch UA Mucus: Present /LPF UA WBC Quant: 2 /HPF -- Normal range between ( 0 and 5 ) UA RBC Quant: 0 /HPF -- Normal range between ( 0 and 5 ) UA Squepi Cells Quant: 14 /HPF -- Normal range between ( 0 and 29 ) Chemistry 01/29/2023 10:54 PM Creatinine Lvl: 0.73 mg/dL -- Normal range between ( 0.44 and 1.03 ) BUN: 11 mg/dL -- Normal range between ( 8 and 26 ) Glucose Lvl: 108 mg/dL -- Normal range between ( 70 and 99 ) Potassium Lvl: 3.8 mmol/L -- Normal range between ( 3.4 and 4.8 ) AST: 19 IU/L -- Normal range between ( 15 and 41 ) ALT: 21 IU/L -- Normal range between ( 14 and 54 ) Troponin-I: <0.03 ng/mL -- Normal range between ( 0.00 and 0.03 ) Sodium Lvl: 139 mmol/L -- Normal range between ( 133 and 142 ) Calcium Lvl: 9.0 mg/dL -- Normal range between ( 8.5 and 10.3 ) Albumin Lvl: 4.0 g/dL -- Normal range between ( 3.2 and 4.9 ) Total Protein: 7.4 g/dL -- Normal range between ( 6.5 and 8.1 ) Magnesium Lvl: 1.9 mg/dL -- Normal range between ( 1.7 and 2.4 ) Bili Total: 0.1 mg/dL -- Normal range between ( 0.3 and 1.2 ) Alk Phos: 78 IU/L -- Normal range between ( 32 and 91 ) Chloride: 106 mmol/L -- Normal range between ( 98 and 110 ) CO2: 23 mmol/L -- Normal range between ( 22 and 32 ) Anion Gap: 14 -- Normal range between ( 7 and 17 ) Estimated GFR: >60 mL/min/1.73m? BUN Crea Ratio: 15.1 -- Normal range between ( 10.0 and 20.0 ) Urine Preg: Negative AG Ratio: 1.2 -- Normal range between ( 1.1 and 2.2 ) Measurements: Height: Weight: Blood Pressure: /85 mmHg BMI: Procedures No Procedures Documented Immunizations No Immunizations Documented This Visit Final Med List: Medications that have not changed Other Medications ARIPiprazole (ARIPiprazole 10 mg oral tablet) 1 Tabs Oral (given by mouth) every day for 14 Days. Last Dose: ____ diclofenac topical (Voltaren 1% topical gel) 1 Application Topical (on the skin) 4 times a day as needed pain. Refills: 0. Last Dose: ____ nirmatrelvir-ritonavi r (Paxlovid) For Covid. Last Dose: ____ OXcarbazepine (OXcarbazepine 150 mg oral tablet) 1 Tabs Oral (given by mouth) once a day (in the morning). Refills: 0. Last Dose: ____ OXcarbazepine (OXcarbazepine 150 mg oral tablet) 1 Tabs Oral (given by mouth) once a day (in the morning). Last Dose: ____ OXcarbazepine (OXcarbazepine (more content not included)... Normal [facility] ED Note-Physicianon 01-31-20 ED Note-Physician Chief Complaint pt states she has been feeling 'faint' like she could pass out for the last two days. states she has been feeling sickm has had diarrhea for two days History of Present Illness Patient is a 43-year-old female with known history of anxiety/depression, low serum potassium levels presenting to the emergency department for feeling dizzy since yesterday morning. Patient has had mild diarrhea yesterday and today otherwise no abdominal pain. No nausea or vomiting. No cough or congestion. Patient denies chest pain or shortness of breath. No vision changes or focal deficit. Patient states she does drink fluid but not as much as she needs to. No fever. Review of Systems As reviewed in the HPI. All other systems reviewed are negative or normal. Physical Exam CONSTITUTIONAL: [well appearing in no acute distress] SKIN: [Warm, dry, and intact without rash] EYES: [extraocular movements are grossly intact, clear conjunctiva] HENT: [Normocephalic, atraumatic, moist mucus membranes] NECK: [no obvious swelling, normal range of motion] PULMONARY: [normal chest rise and fall, no respiratory distress or stridor CARDIOVASCULAR: [regular rate, distal extremities are warm and well perfused] GASTROINSTESTINAL: [nondistended, non-tender] GENITOURINARY: [deferred] NEUROLOGIC: [normal speech, moves all extremities] MUSCULOSKELETAL: [no gross deformities, atraumatic] PSYCHIATRIC: [normal mood and affect] Vitals & Measurements T: 36.4 ?C (Oral) HR: 91 (Peripheral) RR: 18 BP: 127/85 SpO2: 97% HT: 157 cm WT: 85.5 kg Additional Vitals No qualifying data available. Medical Decision Making ED Course & MDMED Course & MDM Patient Presentation: Patient is a 43-year-old female with known history of anxiety/depression, low serum potassium levels presenting to the emergency department for feeling dizzy since yesterday morning. DIFFERENTIAL DIAGNOSIS: (In no particular order and not limited to following) Viral syndrome, electrolyte abnormalities, dehydration, ACS, pulmonary embolism, less likely Data and analysis: Patient otherwise appears to be stable and in no apparent distress. Her exam was relatively benign. She did endorse small amount of diarrhea yesterday, and then today but otherwise no other related symptoms. I doubt this is coming from the GI tract. I did get basic labs as noted to the right showing hemoglobin of 11.7 otherwise essentially unremarkable. Urinalysis and urine were both normal. I did hydrate patient with a liter of fluid here. On reevaluation she states she feels much better. EKG did not show any concerns for STEMI or other abnormalities. I do not believe there is a need for chest x-ray at this time. No need for CT of the head either. I will discharge patient home with instruction to follow-up with PCP. Patient should drink plenty of fluid and get some rest away from work tomorrow. Return to the emergency department for worsening symptoms. Independent History: None Independent Clinician: None Labs/Imaging Reviewed: I have independently visualized and interpreted images/labs pertinent positives and negatives as follows: Lab work show a normal white count with hemoglobin of 11.7. Patient has normal CMP and magnesium. Troponin was negative. Urinalysis showed no evidence of urinary tract infection. Patient is negative for . Review of Past Medical/External records: Previous DC Summaries/Clinic Notes/Testing Reviewed if available. Notable Findings in MDM section above. Therapeutics Provided: IV fluid PULSE OX INTERPRETATION: Oxygen saturation is 97%, which is normal. EKG INTERPRETATIONS: Time: [22:39:23] Rate: [77]bpm EKG interpreted by [I, (Dante Donnelly), am scribing an EKG interpretation for (Dr. Salinas)] Normal sinus rhythm without any acute ST or T wave change to suggest ischemia or electrolyte abnormalities. Normal P wave, normal QTc/SD interval. Social Determinant of Health: ED Course/Progress Note: Procedures: Reexamination/Reevalu ation 12 AM I did reevaluate patient at this time and states she is feeling much better. We did go over lab, EKG, and other possibilities for the symptoms. Assessment/Plan 1. Dizziness Orders: Discharge Patient EKG Return to Work/School [employer] From IV Refresh vitals and sections below: Problem List/Past Medical History Ongoing Anxiety Depression Low serum potassium level Seasonal nasal allergies Historical No qualifying data Procedure/Surgical History wisdom teeth Medications Inpatient No active inpatient medications Home ARIPiprazole 10 mg oral tablet, 10 mg= 1 tabs, Oral, Daily, Not taking: start 10/21 (after finishing 5 mg) OXcarbazepine 150 mg oral tablet, 150 mg= 1 tabs, Oral, qAM OXcarbazepine 150 mg oral tablet, 150 mg= 1 tabs, Oral, qAM OXcarbazepine 300 mg oral tablet, 300 mg= 1 tabs, Oral, HS (at bedtime) Paxlovid, See Instructions SEROquel, Oral, HS (at bedtime) sertraline (more content not included)... Normal [facility] Magnesiumon 01-30-2023 Magnesium [Mass/Vol] 1.9 mg/dL Normal 1.7-2.4 [facility] Comment on above: Performed By: #### . Urinalysis Microscopic Man #### [facility] [address] [place] [address] Troponin-Ion 01-30-2023 Troponin I.cardiac [Mass/Vol] ng/mL Normal 0.00-0.03 [facility] Comment on above: Result Comment: An i ncreased Troponin-I value, in the absence of myocardial ischemia, may indicate other etiologies of cardiac damage. Performed By: #### . Urinalysis Microscopic Auto #### [place] [id number] UA w Culture if Indon 2022 Color (U) Yellow Normal Yellow [facility] Comment on above: Performed By: #### . Urinalysis Microscopic Auto #### [place] [address] Ketones Ql (U) Trace Abnormal Negative [facility] Comment on above: Performed By: #### . Urinalysis Microscopic Auto #### [place] [address] UA Blood Negative Normal Negative [facility] Comment on above: Performed By: #### . Urinalysis Microscopic Auto #### [place] [id number] UA Clarity Clear Normal Clear [facility] Comment on above: Performed By: #### . Urinalysis Microscopic Auto #### [place] [id number] UA Glucose Normal Normal Negative [facility] Comment on above: Performed By: #### . Urinalysis Microscopic Auto #### [place] [id number] UA Leukocyte Esterase Negative Normal Negative [facility] Comment on above: Performed By: #### . Urinalysis Microscopic Auto #### [place] [id number] UA Nitrite Negative Normal Negative [facility] Comment on above: Performed By: #### . Urinalysis Microscopic Auto #### [place] [address] UA pH 6.0 Normal 4.5 - 7.8 [facility] Comment on above: Performed By: #### . Urinalysis Microscopic Auto #### [place] [address] UA Protein 30 mg/dL Abnormal Negative [facility] Comment on above: Performed By: #### . Urinalysis Microscopic Auto #### [address] [address] UA Source Clean Catch Normal [facility] Comment on above: Performed By: #### . Urinalysis Microscopic Auto #### [place] [address] UA Spec Grav 1.039 High 1.003-1.035 [facility] Comment on above: Performed By: #### . Urinalysis Microscopic Auto #### [place] [address] UA Urobilinogen 0.2 mg/dL Normal 0.2 - 1.0 [facility] Comment on above: Performed By: #### . Urinalysis Microscopic Auto #### [place] [address] Urobilinogen (U) [Mass/Vol] Negative Normal Negative [facility] Comment on above: Performed By: #### . Urinalysis Microscopic Auto #### [place] [address] COV19 Rapidon 01-16-2023 LAB ONLY Result Called? No Normal B [facility] Comment on above: Performed By: #### A LC #### [place] [address] Reason for Rapid Test Inpatient Normal [facility] Comment on above: Performed By: #### A LC #### [place] [address] SARS-CoV-2 (COVID-19) RNA CHANTEL+probe Ql (Unsp spec) Negative Normal Negative [facility] Comment on above: Result Comment: The 2019 novel coronavirus SARS-CoV-2 target nucleic acids are not detected. This test is for the detection of SARS-CoV-2 RNA. Positive results are indicative of active infection with SARS-CoV-2. Positive results do not rule out bacterial infection or co-infection with other viruses. Negative results should be treated as presumptive and, if inconsistent with clinical signs and symptoms or necessary for patient management, should be tested with an alternative molecular assay.Negative results do not preclude SARS-CoV-2 infection and should not be used as the sole basis for treatment or other patient management decisions. Clinical correlation with patient history and other diagnostic information is necessary to determine patient infection status. ADDITIONAL INFORMATION: Testing was performed using the ID NOW COVID-19 test by [employer], which has received Emergency Use Authorization (EUA) by the U.S. Food and Drug Administration. The [employer] ID NOW COVID-19 test performs best when patients are tested within the first 7 days of symptom onset. Results should be interpreted with caution for asymptomatic patients or those tested outside the 7 day target. Refer to CDC guidelines for further testing algorithms. Fact sheets for this Emergency Use Authorization (EUA) assay can be found at the following links: Fact Sheet for HealthCare Providers: https://www.fda.gov/media/720086/download Fact Sheet for Patients: https://www.fda.gov/media/445978/download Performed By: #### A LC #### [place] [address] ED Clinical Summaryon 2022 ED Clinical Summary [place] [id number] ED Clinical Summary Person Information Name: Rosangela Lindo Cristy/[facility] Age: 43 Years : 1980 Sex: Female PCP: Shan Rivas DO Marital Status: Phone: Race: White Ethnicity: Not or Language: Luxembourger Visit Reason: Chills; congestion, chills Acuity: 4 Enc Type: Emergency Med Service: Emergency Medicine Arrival: 01/16/2023 18:11:57 Discharge: 01/16/2023 19:45:00 LOS: 000 01:34 Checkin: 01/16/2023 18:11:57 Checkout: 01/16/2023 19:45:00 Dispo Type: Home or Self Care Address: [address] [place] [address] [phone] Provider Notes: Diagnosis: 1:Viral syndrome Problems No Problems Documented Smoking Status: Smoking Status Never (less than 100 in lifetime) Functional Status: Sensory Deficits: History of Falls: Mobility Assistance Prior to Admission: ADLs: Current Level of Assistance for Self-Care/Mobility: Cognitive Status: Allergies No Known Medication Allergies No Known Allergies Laboratory or Other Results This Visit (last charted value for your 01/16/2023 visit) Molecular 01/16/2023 6:42 PM SARS-CoV-2 RNA Detection: Negative Flu A Viral RNA: Negative Flu B Viral RNA: Negative Measurements: Height: Weight: 84.3 kg Blood Pressure: /86 mmHg BMI: Procedures No Procedures Documented Immunizations No Immunizations Documented This Visit Final Med List: Medications that have not changed Other Medications ARIPiprazole (ARIPiprazole 10 mg oral tablet) 1 Tabs Oral (given by mouth) every day for 14 Days. Last Dose: ____ diclofenac topical (Voltaren 1% topical gel) 1 Application Topical (on the skin) 4 times a day as needed pain. Refills: 0. Last Dose: ____ nirmatrelvir-ritonavi r (Paxlovid) For Covid. Last Dose: ____ OXcarbazepine (OXcarbazepine 150 mg oral tablet) 1 Tabs Oral (given by mouth) once a day (in the morning). Refills: 0. Last Dose: ____ OXcarbazepine (OXcarbazepine 150 mg oral tablet) 1 Tabs Oral (given by mouth) once a day (in the morning). Last Dose: ____ OXcarbazepine (OXcarbazepine 300 mg oral tablet) 1 Tabs Oral (given by mouth) once a day (at bedtime). Last Dose: ____ QUEtiapine (SEROquel) Oral (given by mouth) once a day (at bedtime). Last Dose: ____ sertraline (sertraline 100 mg oral tablet) 1 Tabs Oral (given by mouth) every day. Refills: 0. Last Dose: ____ sertraline (sertraline 100 mg oral tablet) 1 Tabs Oral (given by mouth) once a day (in the morning). Last Dose: ____ Other Medications ARIPiprazole (ARIPiprazole 10 mg oral tablet) 1 Tabs Oral (given by mouth) every day for 14 Days. diclofenac topical (Voltaren 1% topical gel) 1 Application Topical (on the skin) 4 times a day as needed pain. Refills: 0. nirmatrelvir-ritonavi r (Paxlovid) For Covid. OXcarbazepine (OXcarbazepine 150 mg oral tablet) 1 Tabs Oral (given by mouth) once a day (in the morning). Refills: 0. OXcarbazepine (OXcarbazepine 150 mg oral tablet) 1 Tabs Oral (given by mouth) once a day (in the morning). OXcarbazepine (OXcarbazepine 300 mg oral tablet) 1 Tabs Oral (given by mouth) once a day (at bedtime). QUEtiapine (SEROquel) Oral (given by mouth) once a day (at bedtime). sertraline (sertraline 100 mg oral tablet) 1 Tabs Oral (given by mouth) every day. Refills: 0. sertraline (sertraline 100 mg oral tablet) 1 Tabs Oral (given by mouth) once a day (in the morning). Care Team Members: Attending Physician: Haylee Morales PA-C Consulting Physician: Referring Physician: Provider Role Assigned Unassigned Haylee Morales PA-C MidLevel 01/16/2023 18:26:24 Follow up: With: Address: When: Shan Rivas [address] [place] [address] [phone] Business (1) With: Address: When: Emergency Department , only if needed Comments: Return to Emergency Department immediately for any new or worsening smyptoms, or if symptoms last longer than discussed. Discharge Orders: Discharge Patient 01/16/23 19:25:00 EST, Discharge to Home, Self, Viral syndrome Return to Work/School 01/16/23 19:25:00 EST, 01/17/23 19:26:00 EST, 01/16/23 19:25:00 EST, Viral syndrome Patient Education Information: Viral Syndrome (Adult) [facility] Poison Help line: . [facility] Hotline: [place] Tobacco Quit Line: [place], [place]) [address]: [phone] [place], [place]) [address]: [phone] [facility] [address], [place]: [phone] [facility] ED Note-Physicianon 01-17-20 ED Note-Physician Chief Complaint Congestion, chills x 1 week History of Present Illness Patient is a 43 year old female presenting to the ED for upper respiratory symptoms and chills. Patient has been experiencing a slight cough, congestion, nasal drainage and body chills. She has not checked her fever but she thought she is felt feverish. She has not taken any medications for symptoms. Note chest tightness. She has not been around any known sick contacts. No other symptoms. Patient is not experiencing any headache, fevers, shortness of breath, chest pain, nausea, vomiting, abdominal pain, urinary stool changes. Review of Systems As reviewed in the HPI. All other systems reviewed are negative or normal. Physical Exam CONSTITUTIONAL: [well appearing in no acute distress] SKIN: [Warm, dry, and intact without rash] EYES: [extraocular movements are grossly intact, clear conjunctiva] HENT: [Normocephalic, atraumatic, moist mucus membranes] NECK: [no obvious swelling, normal range of motion] PULMONARY: [normal chest rise and fall, no respiratory distress or stridor] CARDIOVASCULAR: [regular rate, distal extremities are warm and well perfused] GASTROINSTESTINAL: [nondistended, non-tender] GENITOURINARY: [deferred] NEUROLOGIC: [normal speech, moves all extremities] MUSCULOSKELETAL: [no gross deformities, atraumatic] PSYCHIATRIC: [normal mood and affect] Vitals & Measurements T: 36.7 ?C (Oral) HR: 82 (Peripheral) RR: 17 BP: 135/86 SpO2: 100% WT: 84.3 kg (Dosing) Additional Vitals No qualifying data available. Procedure No qualifying data available. ASA Documentation Medical Decision Making This report has been created using voice recognition software. It may contain minor errors which are inherent in voice recognition technology. Patient is a 43-year-old female presenting to the emergency department for upper respiratory symptoms and chills. Patient is well-appearing in no acute distress, her vital signs are stable. Physical exam does not reveal any abnormalities. I do not notice any cough congestion or nasal drainage. No erythema seen in the posterior pharynx, no signs of exudates. Patient is afebrile. No abnormalities heard with auscultation of the lungs. Influenza and COVID swabs were negative. Discussed with patient that symptoms are likely due to an upper respiratory infection, viral in nature. Fuhf-qne-exjhear medications such as DayQuil, NyQuil, Sudafed etc. for symptoms as recommended. Alternate between Tylenol and Motrin for fever. Follow-up with PCP. Risk and benefits of medications prescribed were discussed at length the return precautions were discussed at length. Patient understands, is agreeable to current plan, has no questions and feels comfortable going home The results of pertinent diagnostic studies and exam findings were discussed. The patient?s provisional diagnosis and plan of care were discussed with the patient and present family. The patient and/or present family expressed understanding of the diagnosis and plan. The nurse was instructed to provide written instructions and appropriate follow-up information. The patient understands their need and responsibility to obtain additional follow-up as instructed. The risks of medications administered and prescribed were discussed with the patient and family present. Reexamination/Reevalu ation Patient is resting comfortably at discharge. Vital signs stable. Assessment/Plan 1. Viral syndrome Ordered: Discharge Patient Return to Work/School Refresh vitals and sections below: Problem List/Past Medical History Ongoing Anxiety Depression Low serum potassium level Seasonal nasal allergies Historical No qualifying data Procedure/Surgical History wisdom teeth Medications Inpatient No active inpatient medications Home ARIPiprazole 10 mg oral tablet, 10 mg= 1 tabs, Oral, Daily, Not taking: start 10/21 (after finishing 5 mg) OXcarbazepine 150 mg oral tablet, 150 mg= 1 tabs, Oral, qAM OXcarbazepine 150 mg oral tablet, 150 mg= 1 tabs, Oral, qAM OXcarbazepine 300 mg oral tablet, 300 mg= 1 tabs, Oral, HS (at bedtime) Paxlovid, See Instructions SEROquel, Oral, HS (at bedtime) sertraline 100 mg oral tablet, 100 mg= 1 tabs, Oral, qAM sertraline 100 mg oral tablet, 100 mg= 1 tabs, Oral, Daily Voltaren 1% topical gel, 1 sharri, Topical, QID, PRN Allergies No Known Allergies No Known Medication Allergies Social History Alcohol Never Home/Environment Lives with Significant other. Sexual Sexually active: Yes. History of sexual abuse: No. Substance Abuse Denies All Tobacco Never (less than 100 in lifetime) Use:. Family History Cancer of colon: Father. Dementia: Grandfather (M). Diabetes: Grandfather (M). Stroke..: Grandfather (M). Thyroid disease: Mother. Lab Results Molecular LATEST RESULTS HISTORICAL RESULTS SARS-CoV-2 RNA Detection 01/16/23 18:42 Negative 12/18/22 Negative Flu A Viral RNA 01/16/23 18:42 Negat (more content not included)... Normal [facility] Influenza A/B RNA Rapidon Flu A Viral RNA Negative Normal Negative [facility] Comment on above: Performed By: #### C [id number] ####[place] [place] [address] Flu B Viral RNA Negative Normal Negative [facility] Comment on above: Performed By: #### C D:[id number] ####[address] [address] Consent for Treatmenton 01-01 Consent for Treatment [id number] .[id number] Normal [facility] Discharge Instructionson Discharge Instructions [id number] Normal [facility] ED Clinical Summaryon 2022 ED Clinical Summary Normal Guru hassan [facility] ED Note-Physicianon 01-11-20 ED Note-Physician Normal [facility] Comment on above: Result Comment: Elec tronically Signed By: Bret Baker PA-C\.br\Date and Time Signed: 01/10/23 13:35 EST\.br\Electronically Co-Signed By: Matt Pena M.D.\.br\Date and Time Co-Signed: 01/10/23 16:53 EST ED Patient Education Noteon 01-10-2023 ED Patient Education Note Normal [facility] ED Patient Summaryon 023 ED Patient Summary Normal [facility] ED Clinical Summaryon 2022 ED Clinical Summary [address] [id number] ED Clinical Summary Person Information Name: Rosangela Lindo Cristy/[facility] Age: 42 Years : 1980 Sex: Female PCP: Shan Rivas DO Marital Status: Phone: Race: White Ethnicity: Not or Language: Luxembourger Visit Reason: Cough/ sinus congestion; cough/ viral symptoms Acuity: 4 Enc Type: Emergency Med Service: Emergency Medicine Arrival: 12/22/2022 12:13:11 Discharge: 12/22/2022 14:03:00 LOS: 000 01:50 Checkin: 12/22/2022 12:13:11 Checkout: 12/22/2022 14:03:00 Dispo Type: Home or Self Care Address: [address] [place] [address] [phone] Provider Notes: Diagnosis: 1:Sinusitis Problems No Problems Documented Smoking Status: Smoking Status Never (less than 100 in lifetime) Functional Status: Sensory Deficits: History of Falls: Mobility Assistance Prior to Admission: ADLs: Current Level of Assistance for Self-Care/Mobility: Cognitive Status: Allergies No Known Medication Allergies No Known Allergies Laboratory or Other Results This Visit (last charted value for your 12/22/2022 visit) Diagnostic Radiology 12/22/2022 1:24 PM XR Chest 2 Views: XR Chest 2 Views Measurements: Height: Weight: 85.6 kg Blood Pressure: /82 mmHg BMI: Procedures No Procedures Documented Immunizations No Immunizations Documented This Visit Final Med List: New Medications [id number], [address] [place], [place] [id number], [phone] amoxicillin-clavulana te (Augmentin 875 mg-125 mg oral tablet) 1 Tabs Oral (given by mouth) every 12 hours for 10 Days. Refills: 0. Last Dose: ____ Medications that have not changed Other Medications ARIPiprazole (ARIPiprazole 10 mg oral tablet) 1 Tabs Oral (given by mouth) every day for 14 Days. Last Dose: ____ diclofenac topical (Voltaren 1% topical gel) 1 Application Topical (on the skin) 4 times a day as needed pain. Refills: 0. Last Dose: ____ nirmatrelvir-ritonavi r (Paxlovid) For Covid. Last Dose: ____ OXcarbazepine (OXcarbazepine 150 mg oral tablet) 1 Tabs Oral (given by mouth) once a day (in the morning). Refills: 0. Last Dose: ____ OXcarbazepine (OXcarbazepine 150 mg oral tablet) 1 Tabs Oral (given by mouth) once a day (in the morning). Last Dose: ____ OXcarbazepine (OXcarbazepine 300 mg oral tablet) 1 Tabs Oral (given by mouth) once a day (at bedtime). Last Dose: ____ QUEtiapine (SEROquel) Oral (given by mouth) once a day (at bedtime). Last Dose: ____ sertraline (sertraline 100 mg oral tablet) 1 Tabs Oral (given by mouth) every day. Refills: 0. Last Dose: ____ sertraline (sertraline 100 mg oral tablet) 1 Tabs Oral (given by mouth) once a day (in the morning). Last Dose: ____ [id number], [address] [place], [place] [id number], [phone] amoxicillin-clavulana te (Augmentin 875 mg-125 mg oral tablet) 1 Tabs Oral (given by mouth) every 12 hours for 10 Days. Refills: 0. Other Medications ARIPiprazole (ARIPiprazole 10 mg oral tablet) 1 Tabs Oral (given by mouth) every day for 14 Days. diclofenac topical (Voltaren 1% topical gel) 1 Application Topical (on the skin) 4 times a day as needed pain. Refills: 0. nirmatrelvir-ritonavi r (Paxlovid) For Covid. OXcarbazepine (OXcarbazepine 150 mg oral tablet) 1 Tabs Oral (given by mouth) once a day (in the morning). Refills: 0. OXcarbazepine (OXcarbazepine 150 mg oral tablet) 1 Tabs Oral (given by mouth) once a day (in the morning). OXcarbazepine (OXcarbazepine 300 mg oral tablet) 1 Tabs Oral (given by mouth) once a day (at bedtime). QUEtiapine (SEROquel) Oral (given by mouth) once a day (at bedtime). sertraline (sertraline 100 mg oral tablet) 1 Tabs Oral (given by mouth) every day. Refills: 0. sertraline (sertraline 100 mg oral tablet) 1 Tabs Oral (given by mouth) once a day (in the morning). Care Team Members: Attending Physician: Louann Mascorro PA-C Consulting Physician: Referring Physician: Provider Role Assigned Unassigned Louann Mascorro PA-C ED MidLevel 12/22/2022 12:41:06 Jefferson Chavez ED Nurse 12/22/2022 12:42:02 Follow up: With: Address: When: Emergency Room , only if needed Comments: Return for any worsening symptoms, difficulty breathing/swallowing, chest pain, inability to tolerate fluids, persistent fever or other concerns With: Address: When: Shan Rivas [address] [place] [address] [phone] Business (1) Within 2 to 4 days Comments: Recheck today's symptoms Discharge Orders: Discharge Patient 12/22/22 13:50:00 EDT, Discharge to Home, Self Patient Education Information: Sinusitis (Antibiotic Treatment) [facility] Poison Help line: . [employer] (more content not included)... Normal [facility] ED Note-Physicianon 12-23-19 ED Note-Physician Chief Complaint Pt states sligh cough with sinus pressure and congestion. Pt reports feeling hot and states nausea and vomiting yesterday that has since subsided. Denies fever History of Present Illness Patient is a 42-year-old female who presents to ED with complaints of cough and congestion, sinus pain/pressure for 1.5 weeks. She states yesterday she felt terrible slept all day, had 10 episodes of vomiting and felt hot which all resolves in the evening. She denies fever. Patient was previously seen here on 12/18 with same complaints and tested negative for covid and influenza A/B. Patient denies history of asthma. She is up-to-date on vaccinations. She denies smoking. Review of Systems General: [Negative for fever, chills, weakness, malaise] Eyes: [Negative for injury, redness, pain, discharge] Head/Face: [Negative for injury, pain, swelling] ENT: [Positive for congestion, sinus pain/pressure. Negative for ear pain, ear drainage, rhinorrhea, sore throat, difficulty swallowing, difficulty handling secretions, hoarseness] Neck: [Negative for injury, pain, swelling, stiffness] Cardiovascular: [Negative for chest pain, palpitations, edema] Respiratory: [Positive for shortness of breath and cough. Negative for wheezing, pleuritic chest pain, hemoptysis] Abdomen/GI: [Positive for nausea, vomiting now resolved. Negative for abdominal pain, diarrhea] Skin: [Negative for injury, rash, discoloration] All other systems reviewed are negative and normal Physical Exam General: [Alert, awake, no apparent distress, afebrile, well hydrated] Eyes: [PERRL, extraocular movements intact, clear conjunctiva] Head/Face: [Frontal and maxillary sinus tenderness. Normocephalic, atraumatic] ENT: [External ear normal, ear canals w/out redness, swelling, discharge bilaterally. Tympanic membranes are translucent without erythema. Patent nares w/out rhinorrhea. No tonsillar enlargement, erythema, or exudate. Uvula midline and airway is patent] Neck: [Non-tender, supple, no nuchal rigidity, full range of motion, no swelling, no lymphadenopathy] Cardiovascular: [Regular rate and rhythm, no appreciated murmurs, normal S1 and S2, strong radial pulses w/intact distal perfusion] Respiratory: [Lungs clear to auscultation w/out wheezes, rhonchi, or rales, normal excursion, no accessory muscle use, no stridor] Skin: [[place], warm, dry, no injury, no rashes] Neuro: [Alert and oriented x 3, GCS 15, Normal mentation and speech. Moves all extremities w/out motor or sensory deficit, gait is steady] Psych: [Normal mood and affect, thought process is clear and linear] Vitals & Measurements T: 36.3 ?C (Oral) HR: 92 (Peripheral) RR: 14 BP: 125/82 SpO2: 97% HT: 157.5 cm WT: 85.6 kg (Dosing) Additional Vitals No qualifying data available. Medical Decision Making MEDICAL DECISION MAKING Number and Complexity of Problems Differential Diagnosis: URI, pneumonia, sinusitis MDM Data External documents reviewed: _ My EKG interpretation: _ My CT interpretation: _ My X-ray interpretation: no acute findings My Ultrasound interpretation: _ Decision rules/scores evaluated: _ Discussed with: _ Decision rules/scores evaluated: _ ? HEART Score: Not Completed ? PERC Rule: _ ? NEXUS C-spine Criteria: _ ? Rampart Ankle Rule: _ ? Rampart Knee Rule: _ ? Wells Criteria for DVT: _ ? Wells Criteria for PE: _ Discussed with: _ Treatment and Disposition ED Course: Patient presents w/ongoing cough, sinus pain/pressure for 1.5 weeks. Maxillary and frontal sinus tenderness on exam. Swabs from 12/18/22 were negative for COVID and influenza. CXR today shows no pneumonia. Vitals are stable. Will d/c home w/Rx for Augmentin and have her follow up w/PCP for recheck. She was advised to return for any worsening symptoms, difficulty breathing/swallowing, chest pain, inability to tolerate fluids, persistent fever or other concerns. The results of pertinent diagnostic studies and exam findings were discussed. The patient?s provisional diagnosis and plan of care were discussed with the patient and present family. The patient and/or present family expressed understanding of the diagnosis and plan. The nurse was instructed to provide written instructions and appropriate follow-up information. The patient understands their need and responsibility to obtain additional follow-up as instructed. The risks of medications administered and prescribed were discussed with the patient and family present. Shared decision making: _ Code status: _ Reexamination/Reevalu ation Patient is resting comfortably in room, no distress. Assessment/Plan 1. Sinusitis Orders: amoxicillin-clavulana te, 1 tabs, Oral, q12hr, X 10 days, # 20 tabs, 0 Refill(s), 01/01/23 13:48:00 EDT, Pharmacy: [facility] #[id number] Discharge Patient Refresh vitals and sections below: Problem List/Past Medical History Ongoing Anxiety Depression Low serum potassium level Seasonal nasal allergies Historical No (more content not included)... Normal [facility] ED Clinical Summaryon 2022 ED Clinical Summary [address] [address] ED Clinical Summary Person Information Name: Rosangela Lindo/[facility] Age: 42 Years : 1980 Sex: Female PCP: Shan Rivas DO Marital Status: Phone: Race: White Ethnicity: Not or Language: Luxembourger Visit Reason: Cough; congestion Acuity: 4 Enc Type: Emergency Med Service: Emergency Medicine Arrival: 12/18/2022 20:32:07 Discharge: 12/18/2022 23:00:00 LOS: 000 02:28 Checkin: 12/18/2022 20:32:07 Checkout: 12/18/2022 23:00:00 Dispo Type: Left Without Being Seen Address: [address] [place] [address] [phone] Provider Notes: Diagnosis: Problems No Problems Documented Smoking Status: Smoking Status Never (less than 100 in lifetime) Functional Status: Sensory Deficits: History of Falls: Mobility Assistance Prior to Admission: ADLs: Current Level of Assistance for Self-Care/Mobility: Cognitive Status: Allergies No Known Medication Allergies No Known Allergies Laboratory or Other Results This Visit (last charted value for your 12/18/2022 visit) Molecular 12/18/2022 9:22 PM Flu A Viral RNA: Negative Flu B Viral RNA: Negative 12/18/2022 9:17 PM SARS-CoV-2 RNA Detection: Negative Measurements: Height: Weight: 87.7 kg Blood Pressure: /87 mmHg BMI: Procedures No Procedures Documented Immunizations No Immunizations Documented This Visit Final Med List: Medications that have not changed Other Medications ARIPiprazole (ARIPiprazole 10 mg oral tablet) 1 Tabs Oral (given by mouth) every day for 14 Days. Last Dose: ____ diclofenac topical (Voltaren 1% topical gel) 1 Application Topical (on the skin) 4 times a day as needed pain. Refills: 0. Last Dose: ____ nirmatrelvir-ritonavi r (Paxlovid) For Covid. Last Dose: ____ OXcarbazepine (OXcarbazepine 150 mg oral tablet) 1 Tabs Oral (given by mouth) once a day (in the morning). Refills: 0. Last Dose: ____ OXcarbazepine (OXcarbazepine 150 mg oral tablet) 1 Tabs Oral (given by mouth) once a day (in the morning). Last Dose: ____ OXcarbazepine (OXcarbazepine 300 mg oral tablet) 1 Tabs Oral (given by mouth) once a day (at bedtime). Last Dose: ____ QUEtiapine (SEROquel) Oral (given by mouth) once a day (at bedtime). Last Dose: ____ sertraline (sertraline 100 mg oral tablet) 1 Tabs Oral (given by mouth) every day. Refills: 0. Last Dose: ____ sertraline (sertraline 100 mg oral tablet) 1 Tabs Oral (given by mouth) once a day (in the morning). Last Dose: ____ Other Medications ARIPiprazole (ARIPiprazole 10 mg oral tablet) 1 Tabs Oral (given by mouth) every day for 14 Days. diclofenac topical (Voltaren 1% topical gel) 1 Application Topical (on the skin) 4 times a day as needed pain. Refills: 0. nirmatrelvir-ritonavi r (Paxlovid) For Covid. OXcarbazepine (OXcarbazepine 150 mg oral tablet) 1 Tabs Oral (given by mouth) once a day (in the morning). Refills: 0. OXcarbazepine (OXcarbazepine 150 mg oral tablet) 1 Tabs Oral (given by mouth) once a day (in the morning). OXcarbazepine (OXcarbazepine 300 mg oral tablet) 1 Tabs Oral (given by mouth) once a day (at bedtime). QUEtiapine (SEROquel) Oral (given by mouth) once a day (at bedtime). sertraline (sertraline 100 mg oral tablet) 1 Tabs Oral (given by mouth) every day. Refills: 0. sertraline (sertraline 100 mg oral tablet) 1 Tabs Oral (given by mouth) once a day (in the morning). Care Team Members: Attending Physician: Consulting Physician: Referring Physician: Provider Role Assigned Unassigned Jailyn Chapman ED Nurse 12/18/2022 21:12:40 Follow up: Discharge Orders: Patient Education Information: [facility] Poison Help line: . [facility] Hotline: [place] Tobacco Quit Line: [place], [place]) [address]: [phone] [place], [place]) [address]: [phone] [facility] [address], [place]: [phone] Normal [facility] COV19 Rapidon 12-18-2022 LAB ONLY Result Called? No Normal B [facility] Comment on above: Performed By: #### . Urinalysis Microscopic Man #### [address] [address] Reason for Rapid Test Inpatient Normal [facility] Comment on above: Performed By: #### . Urinalysis Microscopic Man #### [address] [address] SARS-CoV-2 (COVID-19) RNA CHANTEL+probe Ql (Unsp spec) Negative Normal Negative [facility] Comment on above: Result Comment: The 2019 novel coronavirus SARS-CoV-2 target nucleic acids are not detected. This test is for the detection of SARS-CoV-2 RNA. Positive results are indicative of active infection with SARS-CoV-2. Positive results do not rule out bacterial infection or co-infection with other viruses. Negative results should be treated as presumptive and, if inconsistent with clinical signs and symptoms or necessary for patient management, should be tested with an alternative molecular assay.Negative results do not preclude SARS-CoV-2 infection and should not be used as the sole basis for treatment or other patient management decisions. Clinical correlation with patient history and other diagnostic information is necessary to determine patient infection status. ADDITIONAL INFORMATION: Testing was performed using the ID NOW COVID-19 test by [employer], which has received Emergency Use Authorization (EUA) by the U.S. Food and Drug Administration. The [employer] ID NOW COVID-19 test performs best when patients are tested within the first 7 days of symptom onset. Results should be interpreted with caution for asymptomatic patients or those tested outside the 7 day target. Refer to CDC guidelines for further testing algorithms. Fact sheets for this Emergency Use Authorization (EUA) assay can be found at the following links: Fact Sheet for HealthCare Providers: https://www.Amb[employer].gov/media/707480/download Fact Sheet for Patients: https://www.fda.gov/media/691786/download Performed By: #### . Urinalysis Microscopic Man #### [address] [address] Influenza A/B RNA Rapidon Flu A Viral RNA Negative Normal Negative [facility] Comment on above: Performed By: #### C BC #### [address] [address] Flu B Viral RNA Negative Normal Negative [facility] Comment on above: Performed By: #### C BC #### [address] [address] ED Clinical Summaryon 2022 ED Clinical Summary [address] [id number] ED Clinical Summary Person Information Name: Rosangela Lindo/[facility] Age: 42 Years : 1980 Sex: Female PCP: Shan Rivas DO Marital Status: Phone: Race: White Ethnicity: Not or Language: Luxembourger Visit Reason: Headache; headache Acuity: 4 Enc Type: Emergency Med Service: Emergency Medicine Arrival: 12/09/2022 20:16:51 Discharge: 12/09/2022 20:55:00 LOS: 000 00:39 Checkin: 12/09/2022 20:16:51 Checkout: 12/09/2022 20:55:00 Dispo Type: Left Without Being Seen Address: [address] [place] [address] [id number] Provider Notes: Diagnosis: Problems No Problems Documented Smoking Status: Smoking Status Never (less than 100 in lifetime) Functional Status: Sensory Deficits: History of Falls: Mobility Assistance Prior to Admission: ADLs: Current Level of Assistance for Self-Care/Mobility: Cognitive Status: Allergies No Known Medication Allergies No Known Allergies Laboratory or Other Results This Visit (last charted value for your 12/09/2022 visit) No Laboratory or Other Results This Visit Measurements: Height: Weight: 88.2 kg Blood Pressure: /89 mmHg BMI: Procedures No Procedures Documented Immunizations No Immunizations Documented This Visit Final Med List: Medications that have not changed Other Medications ARIPiprazole (ARIPiprazole 10 mg oral tablet) 1 Tabs Oral (given by mouth) every day for 14 Days. Last Dose: ____ diclofenac topical (Voltaren 1% topical gel) 1 Application Topical (on the skin) 4 times a day as needed pain. Refills: 0. Last Dose: ____ nirmatrelvir-ritonavi r (Paxlovid) For Covid. Last Dose: ____ OXcarbazepine (OXcarbazepine 150 mg oral tablet) 1 Tabs Oral (given by mouth) once a day (in the morning). Refills: 0. Last Dose: ____ OXcarbazepine (OXcarbazepine 150 mg oral tablet) 1 Tabs Oral (given by mouth) once a day (in the morning). Last Dose: ____ OXcarbazepine (OXcarbazepine 300 mg oral tablet) 1 Tabs Oral (given by mouth) once a day (at bedtime). Last Dose: ____ QUEtiapine (SEROquel) Oral (given by mouth) once a day (at bedtime). Last Dose: ____ sertraline (sertraline 100 mg oral tablet) 1 Tabs Oral (given by mouth) every day. Refills: 0. Last Dose: ____ sertraline (sertraline 100 mg oral tablet) 1 Tabs Oral (given by mouth) once a day (in the morning). Last Dose: ____ Other Medications ARIPiprazole (ARIPiprazole 10 mg oral tablet) 1 Tabs Oral (given by mouth) every day for 14 Days. diclofenac topical (Voltaren 1% topical gel) 1 Application Topical (on the skin) 4 times a day as needed pain. Refills: 0. nirmatrelvir-ritonavi r (Paxlovid) For Covid. OXcarbazepine (OXcarbazepine 150 mg oral tablet) 1 Tabs Oral (given by mouth) once a day (in the morning). Refills: 0. OXcarbazepine (OXcarbazepine 150 mg oral tablet) 1 Tabs Oral (given by mouth) once a day (in the morning). OXcarbazepine (OXcarbazepine 300 mg oral tablet) 1 Tabs Oral (given by mouth) once a day (at bedtime). QUEtiapine (SEROquel) Oral (given by mouth) once a day (at bedtime). sertraline (sertraline 100 mg oral tablet) 1 Tabs Oral (given by mouth) every day. Refills: 0. sertraline (sertraline 100 mg oral tablet) 1 Tabs Oral (given by mouth) once a day (in the morning). Care Team Members: Attending Physician: Consulting Physician: Referring Physician: Follow up: Discharge Orders: Patient Education Information: [facility] Poison Help line: . [facility] Hotline: [place] Tobacco Quit Line: [place], [place]) [address]: [phone] [place], [place]) [address]: [phone] [facility] [address], [place]: [phone] [facility] ED Clinical Summaryon 2022 ED Clinical Summary [place] [id number] ED Clinical Summary Person Information Name: Rosangela Lindo/Elza Age: 42 Years : 1980 Sex: Female PCP: Shan Rivas DO Marital Status: Phone: Race: White Ethnicity: Not or Language: Luxembourger Visit Reason: Chest pain; Anxiety; chest pain Acuity: 3 Enc Type: Emergency Med Service: Emergency Medicine Arrival: 12/06/2022 02:26:00 Discharge: 12/06/2022 03:08:00 LOS: 000 00:42 Checkin: 12/06/2022 02:26:00 Checkout: 12/06/2022 03:08:00 Dispo Type: Home or Self Care Address: [address] [place] [address] [phone] Provider Notes: History of Present Illness Patient presents with a chief complaint of chest pain.? Symptoms have been ongoing for about 1 day. ?She denies any?shortness of breath. ?No history of coronary artery disease.? She states that the chest pain is likely related to her anxiety.? She ran out of her Zoloft.? She is not suicidal. Review of Systems Constitutional: [No fevers, chills, sweats] Eye: [No recent visual problems] ENMT: [No ear pain, nasal congestion, sore throat] Respiratory: [No shortness of breath, cough] Cardiovascular: [ Chest pain, Gastrointestinal: [No nausea, vomiting, diarrhea] Genitourinary: [No hematuria] Psychiatric:?Anxiety reaction Physical Exam General: [Alert and oriented, well nourished, no acute distress]. Eye: [PERRL, EOMI, normal conjunctiva]. HENT: [Normocephalic, clear tympanic membranes, normal hearing, moist oral mucosa, no scleral icterus, no sinus tenderness]. Neck: [Supple, non-tender, no carotid bruits, no JVD, no lymphadenopathy]. Lungs: [Clear to auscultation and percussion, non-labored respiration]. Heart: [Normal rate, regular rhythm, no murmur, gallop or edema]. Abdomen: [Soft, non-tender, non-distended, normal bowel sounds, no masses]. Musculoskeletal: [Normal range of motion and strength, no tenderness or swelling]. Skin: [Skin is warm, dry and pink, no rashes or lesions]. Neurologic: [Awake, alert, and oriented X3, CN II-XII intact]. Psychiatric: [Cooperative, appropriate mood and affect]. Diagnosis: 1:Chest pain; 2:Anxiety Problems No Problems Documented Smoking Status: Functional Status: Sensory Deficits: History of Falls: Mobility Assistance Prior to Admission: ADLs: Current Level of Assistance for Self-Care/Mobility: Cognitive Status: Allergies No Known Medication Allergies No Known Allergies Laboratory or Other Results This Visit (last charted value for your 12/06/2022 visit) No Laboratory or Other Results This Visit Measurements: Height: Weight: 88.6 kg Blood Pressure: /85 mmHg BMI: Procedures No Procedures Documented Immunizations No Immunizations Documented This Visit Final Med List: Medications that have not changed Other Medications ARIPiprazole (ARIPiprazole 10 mg oral tablet) 1 Tabs Oral (given by mouth) every day for 14 Days. Last Dose: ____ diclofenac topical (Voltaren 1% topical gel) 1 Application Topical (on the skin) 4 times a day as needed pain. Refills: 0. Last Dose: ____ nirmatrelvir-ritonavi r (Paxlovid) For Covid. Last Dose: ____ OXcarbazepine (OXcarbazepine 150 mg oral tablet) 1 Tabs Oral (given by mouth) once a day (in the morning). Refills: 0. Last Dose: ____ OXcarbazepine (OXcarbazepine 150 mg oral tablet) 1 Tabs Oral (given by mouth) once a day (in the morning). Last Dose: ____ OXcarbazepine (OXcarbazepine 300 mg oral tablet) 1 Tabs Oral (given by mouth) once a day (at bedtime). Last Dose: ____ QUEtiapine (SEROquel) Oral (given by mouth) once a day (at bedtime). Last Dose: ____ sertraline (sertraline 100 mg oral tablet) 1 Tabs Oral (given by mouth) every day. Refills: 0. Last Dose: ____ sertraline (sertraline 100 mg oral tablet) 1 Tabs Oral (given by mouth) once a day (in the morning). Last Dose: ____ Other Medications ARIPiprazole (ARIPiprazole 10 mg oral tablet) 1 Tabs Oral (given by mouth) every day for 14 Days. diclofenac topical (Voltaren 1% topical gel) 1 Application Topical (on the skin) 4 times a day as needed pain. Refills: 0. nirmatrelvir-ritonavi r (Paxlovid) For Covid. OXcarbazepine (OXcarbazepine 150 mg oral tablet) 1 Tabs Oral (given by mouth) once a day (in the morning). Refills: 0. OXcarbazepine (OXcarbazepine 150 mg oral tablet) 1 Tabs Oral (given by mouth) once a day (in the morning). OXcarbazepine (OXcarbazepine 300 mg oral tablet) 1 Tabs Oral (given by mouth) once a day (at bedtime). QUEtiapine (SEROquel) Oral (given by mouth) once a day (at bedtime). sertraline (sertraline 100 mg oral tablet) 1 Tabs Oral (given by mouth) every day. Refills: 0. sertraline (sertraline 100 mg oral tabl (more content not included)... Normal [facility] ED Clinical Summary [place] [id number] [place] [address] ED Clinical Summary Person Information Name: Rosangela Lindo Cristy/[facility]_[place] Age: 42 Years : 1980 Sex: Female PCP: Shan Rivas DO Marital Status: Phone: Race: White Ethnicity: Not or Language: Luxembourger Visit Reason: Wrist pain-swelling; Suicidal thoughts; wrist pain Acuity: 2 Enc Type: Emergency Med Service: Emergency Medicine Arrival: 12/05/2022 21:41:55 Discharge: 12/05/2022 22:51:00 LOS: 000 01:10 Checkin: 12/05/2022 21:41:55 Checkout: 12/05/2022 22:51:00 Dispo Type: Home or Self Care Address: [address] [place] [address] [phone] Provider Notes: Diagnosis: 1:Depression; 2:Medication refill; 3:Right wrist sprain; 4:Overuse injury Problems No Problems Documented Smoking Status: Smoking Status Never (less than 100 in lifetime) Functional Status: Sensory Deficits: History of Falls: Mobility Assistance Prior to Admission: ADLs: Current Level of Assistance for Self-Care/Mobility: Cognitive Status: Allergies No Known Medication Allergies No Known Allergies Laboratory or Other Results This Visit (last charted value for your 12/05/2022 visit) No Laboratory or Other Results This Visit Measurements: Height: Weight: 87.8 kg Blood Pressure: /88 mmHg BMI: Procedures No Procedures Documented Immunizations No Immunizations Documented This Visit Final Med List: New Medications [id number], [address], [place] [phone], [phone] diclofenac topical (Voltaren 1% topical gel) 1 Application Topical (on the skin) 4 times a day as needed pain. Refills: 0. Last Dose: ____ Medications That Were Updated - Follow Current Instructions [id number], [address], [place] [phone], [phone] Current OXcarbazepine (OXcarbazepine 150 mg oral tablet) 1 Tabs Oral (given by mouth) once a day (in the morning). Refills: 0. Last Dose: ____ Current sertraline (sertraline 100 mg oral tablet) 1 Tabs Oral (given by mouth) every day. Refills: 0. Last Dose: ____ Other Medications Current OXcarbazepine (OXcarbazepine 150 mg oral tablet) 1 Tabs Oral (given by mouth) once a day (in the morning). Last Dose: ____ Current OXcarbazepine (OXcarbazepine 300 mg oral tablet) 1 Tabs Oral (given by mouth) once a day (at bedtime). Last Dose: ____ Current sertraline (sertraline 100 mg oral tablet) 1 Tabs Oral (given by mouth) once a day (in the morning). Last Dose: ____ Medications that have not changed Other Medications ARIPiprazole (ARIPiprazole 10 mg oral tablet) 1 Tabs Oral (given by mouth) every day for 14 Days. Last Dose: ____ nirmatrelvir-ritonavi r (Paxlovid) For Covid. Last Dose: ____ QUEtiapine (SEROquel) Oral (given by mouth) once a day (at bedtime). Last Dose: ____ [id number], [address], [place] [phone], [phone] OXcarbazepine (OXcarbazepine 150 mg oral tablet) 1 Tabs Oral (given by mouth) once a day (in the morning). Refills: 0. diclofenac topical (Voltaren 1% topical gel) 1 Application Topical (on the skin) 4 times a day as needed pain. Refills: 0. sertraline (sertraline 100 mg oral tablet) 1 Tabs Oral (given by mouth) every day. Refills: 0. Other Medications OXcarbazepine (OXcarbazepine 150 mg oral tablet) 1 Tabs Oral (given by mouth) once a day (in the morning). OXcarbazepine (OXcarbazepine 300 mg oral tablet) 1 Tabs Oral (given by mouth) once a day (at bedtime). ARIPiprazole (ARIPiprazole 10 mg oral tablet) 1 Tabs Oral (given by mouth) every day for 14 Days. nirmatrelvir-ritonavi r (Paxlovid) For Covid. QUEtiapine (SEROquel) Oral (given by mouth) once a day (at bedtime). sertraline (sertraline 100 mg oral tablet) 1 Tabs Oral (given by mouth) once a day (in the morning). Care Team Members: Attending Physician: Serina Martinez MD Consulting Physician: Referring Physician: Provider Role Assigned Unassigned Serina Martinez MD ED Provider 12/05/2022 21:55:28 Follow up: With: Address: When: Arnol Horner [address] [phone] Business (1) Within 1 to 2 days Comments: Please call to schedule close orthopedic surgery follow-up to have your right wrist re-examined and discuss treatment options for your persistent pain. With: Address: When: Shan Rivas [address] [phone] Business (1) Within 1 to 2 days Discharge Orders: Discharge Patient 12/05/22 22:26:00 EDT, Discharge to Home, Self Return to Work/School 12/05/22 19:00:00 EDT, 12/06/22 23:59:00 EDT, Return to work on 12/07/22, 12/05/22 19:00:00 EDT Patient Education Information: Recognizing Suicide Warning Signs in Yourself; Depression; Wrist Sprain; Tr (more content not included)... Normal [facility] ED Note-Physicianon 12-07-19 ED Note-Physician Chief Complaint pt complaint of chest pain whiich she believe was started by her anxiety; no n/v; hx of anxiety/major depressive disorder. History of Present Illness Patient presents with a chief complaint of chest pain. Symptoms have been ongoing for about 1 day. She denies any shortness of breath. No history of coronary artery disease. She states that the chest pain is likely related to her anxiety. She ran out of her Zoloft. She is not suicidal. Review of Systems Constitutional: [No fevers, chills, sweats] Eye: [No recent visual problems] ENMT: [No ear pain, nasal congestion, sore throat] Respiratory: [No shortness of breath, cough] Cardiovascular: [ Chest pain, Gastrointestinal: [No nausea, vomiting, diarrhea] Genitourinary: [No hematuria] Psychiatric: Anxiety reaction Physical Exam General: [Alert and oriented, well nourished, no acute distress]. Eye: [PERRL, EOMI, normal conjunctiva]. HENT: [Normocephalic, clear tympanic membranes, normal hearing, moist oral mucosa, no scleral icterus, no sinus tenderness]. Neck: [Supple, non-tender, no carotid bruits, no JVD, no lymphadenopathy]. Lungs: [Clear to auscultation and percussion, non-labored respiration]. Heart: [Normal rate, regular rhythm, no murmur, gallop or edema]. Abdomen: [Soft, non-tender, non-distended, normal bowel sounds, no masses]. Musculoskeletal: [Normal range of motion and strength, no tenderness or swelling]. Skin: [Skin is warm, dry and pink, no rashes or lesions]. Neurologic: [Awake, alert, and oriented X3, CN II-XII intact]. Psychiatric: [Cooperative, appropriate mood and affect]. Vitals & Measurements T: 36.8 ?C (Oral) HR: 86 (Monitored) HR: 86 (Peripheral) RR: 18 BP: 135/85 SpO2: 96% WT: 88.6 kg (Dosing) Additional Vitals No qualifying data available. Procedure No qualifying data available. ASA Documentation Medical Decision Making Patient seen and evaluated for chest pain. She was offered comprehensive work-up for her chest pain to rule out ACS or pulmonary embolism and the like. She has declined this investigation states that her chest pain is likely from anxiety for something for anxiety. Patient was given 1 mg tab of Ativan to go home with as she is currently driving. She is not suicidal. Reassurance and discharged home. Assessment/Plan 1. Chest pain 2. Anxiety Orders: LORazepam, 1 mg, Oral, Tab, Once, First Dose: 12/06/22 2:58:00 EDT, Stop Date: 12/06/22 2:58:00 EDT, STAT, Dispense From Location: [facility], 12/06/22 2:58:00 EDT [address] - ED Professional Level 2 Discharge Patient EKG Refresh vitals and sections below: Problem List/Past Medical History Ongoing Anxiety Depression Low serum potassium level Seasonal nasal allergies Historical No qualifying data Procedure/Surgical History wisdom teeth Medications Inpatient No active inpatient medications Home ARIPiprazole 10 mg oral tablet, 10 mg= 1 tabs, Oral, Daily, Not taking: start 10/21 (after finishing 5 mg) OXcarbazepine 150 mg oral tablet, 150 mg= 1 tabs, Oral, qAM OXcarbazepine 150 mg oral tablet, 150 mg= 1 tabs, Oral, qAM OXcarbazepine 300 mg oral tablet, 300 mg= 1 tabs, Oral, HS (at bedtime) Paxlovid, See Instructions SEROquel, Oral, HS (at bedtime) sertraline 100 mg oral tablet, 100 mg= 1 tabs, Oral, qAM sertraline 100 mg oral tablet, 100 mg= 1 tabs, Oral, Daily Voltaren 1% topical gel, 1 sharri, Topical, QID, PRN Allergies No Known Allergies No Known Medication Allergies Social History Alcohol Never Home/Environment Lives with Significant other. Sexual Sexually active: Yes. History of sexual abuse: No. Substance Abuse Denies All Tobacco Never (less than 100 in lifetime) Use:. Family History Cancer of colon: Father. Dementia: Grandfather (M). Diabetes: Grandfather (M). Stroke..: Grandfather (M). Thyroid disease: Mother. Diagnostic Results Electronically signed by Austin Grey MD 12/06/22 03:02 EDT Normal [facility] ED Note-Physician Chief Complaint right wrist pain, thoughts of harming shelf and suicidial thoughts. History of Present Illness Patient is a 42 year old female with a history of anxiety and depression presenting to the ED complaining of right wrist pain and depression/anxiety. Patient was seen here 2 days ago for the right wrist pain and thinks it is caused by repetitive movements at work. She was told it was likely a wrist sprain for which she was given a brace and was instructed to follow up with Ortho. She states the wrist pain has not improved but she has not called Ortho yet. Patient also reporting increased anxiety and depression and states she has been out of her Zoloft for the last few days and would like a refill. She denies any SI, HI, hallucinations. No other complaints at this time. Review of Systems As reviewed in the HPI. All other systems reviewed are negative or normal. Physical Exam CONSTITUTIONAL: [no apparent distress, well appearing] SKIN: [warm, dry, no jaundice, hives or petechiae] EYES: [pupils are equally round, extraocular movements intact without nystagmus, clear conjunctiva, non-icteric sclera] HENT: [atraumatic, moist mucus membranes, oropharynx clear without exudates] NECK: [Nontender and supple with no nuchal rigidity, no lymphadenopathy, full ROM] PULMONARY: [clear to auscultation without wheezes, rhonchi, or rales, normal excursion, no accessory muscle use and no stridor] CARDIOVASCULAR: [regular rate, rhythm, normal S1 and S2. No appreciated murmurs. Strong radial pulses with intact distal perfusion] GASTROINTESTINAL: [soft, non-tender, non-distended, no palpable masses, no rebound or guarding] LYMPHATICS: [ no lymphadenopathy] MUSCULOSKELETAL: [Tenderness with passive and active ROM of the right wrist. Extremities have no gross deformity, no edema, redness, or swelling] NEUROLOGIC: [ Normal mentation and speech. Moves all extremities x 4 without motor or sensory deficit. ] PSYCHIATRIC: [Depressed but negative SI or HI. ] Vitals & Measurements T: 36.5 ?C (Oral) HR: 101 (Peripheral) RR: 18 BP: 127/85 SpO2: 97% HT: 157.5 cm WT: 87.8 kg (Dosing) Additional Vitals No qualifying data available. Procedure No qualifying data available. ASA Documentation Medical Decision Making Laura Washington scribing for and in the presence of Dr. Juan Clark Attestation: The information in this document, created by the medical insurance coder for me, accurately reflects the services I personally performed and the decisions made by me. This report has been created using voice recognition software. It may contain minor errors which are inherent in voice recognition technology. Reexamination/Reevalu ation MEDICAL DECISION MAKING Number and Complexity of Problems Differential Diagnosis: _Anxiety, depression, SI, HI, acute psychosis, hallucinations, drug-induced psychosis, adjustment disorder, wrist sprain or strain, overuse injury, fracture, dislocation MDM Data External documents reviewed: _ My EKG interpretation: _ My CT interpretation: _ My X-ray interpretation: _ My Ultrasound interpretation: _ Decision rules/scores evaluated: _ Discussed with: _ Decision rules/scores evaluated: _ ? HEART Score: Not Completed ? PERC Rule: _ ? NEXUS C-spine Criteria: _ ? Rampart Ankle Rule: _ ? Rampart Knee Rule: _ ? Wells Criteria for DVT: _ ? Wells Criteria for PE: _ Discussed with: _ Treatment and Disposition ED Course: _Patient seen and evaluated. Examination findings as noted above. Patient now adamantly denying any complaints of SI or HI. Requesting medication refill, additional resources for her depression and treatment for her right wrist sprain. Had extensive discussion over appropriate management of the sprain and needed follow-up with orthopedics which had been previously discussed with her on multiple occasions. She voiced understanding and is in agreement with the plan. Stable and cleared for discharge home. Shared decision making: _ Code status: _ Assessment/Plan 1. Depression 2. Medication refill 3. Right wrist sprain 4. Overuse injury Refresh vitals and sections below: Problem List/Past Medical History Ongoing Anxiety Depression Low serum potassium level Seasonal nasal allergies Historical No qualifying data Procedure/Surgical History wisdom teeth Medications Inpatient No active inpatient medications Home ARIPiprazole 10 mg oral tablet, 10 mg= 1 tabs, Oral, Daily, Not taking: start 10/21 (after finishing 5 mg) OXcarbazepine 150 mg oral tablet, 150 mg= 1 tabs, Oral, qAM OXcarbazepine 300 mg oral tablet, 300 mg= 1 tabs, Oral, HS (at bedtime) Paxlovid, See Instructions SEROquel, Oral, HS (at bedtime) sertraline 100 mg oral tablet, 100 mg= 1 tabs, Oral, qAM Allergies No Known Allergies No Known Medication Allergies Social History Alcohol Never Home/Environment Lives with Significant other. Sexual Sexually active: Yes. History of sexual abuse: No. Subst (more content not included)... Normal [facility] ED Clinical Summaryon 2022 ED Clinical Summary [address] [address] ED Clinical Summary Person Information Name: Rosangela Lindo Cristy/[facility] Age: 42 Years : 1980 Sex: Female PCP: Shan Rivas DO Marital Status: Phone: Race: White Ethnicity: Not or Language: Luxembourger Visit Reason: Wrist pain-swelling; wrist pain Acuity: 5 Enc Type: Emergency Med Service: Emergency Medicine Arrival: 12/03/2022 12:48:34 Discharge: 12/03/2022 13:55:00 LOS: 000 01:07 Checkin: 12/03/2022 12:48:34 Checkout: 12/03/2022 13:55:00 Dispo Type: Home or Self Care Address: [address] [place] [address] [phone] Provider Notes: Diagnosis: 1:Right wrist sprain Problems No Problems Documented Smoking Status: Smoking Status Never (less than 100 in lifetime) Functional Status: Sensory Deficits: History of Falls: Mobility Assistance Prior to Admission: ADLs: Current Level of Assistance for Self-Care/Mobility: Cognitive Status: Allergies No Known Medication Allergies No Known Allergies Laboratory or Other Results This Visit (last charted value for your 12/03/2022 visit) No Laboratory or Other Results This Visit Measurements: Height: Weight: 75 kg Blood Pressure: /87 mmHg BMI: Procedures No Procedures Documented Immunizations No Immunizations Documented This Visit Final Med List: Medications that have not changed Other Medications ARIPiprazole (ARIPiprazole 10 mg oral tablet) 1 Tabs Oral (given by mouth) every day for 14 Days. Last Dose: ____ nirmatrelvir-ritonavi r (Paxlovid) For Covid. Last Dose: ____ OXcarbazepine (OXcarbazepine 150 mg oral tablet) 1 Tabs Oral (given by mouth) once a day (in the morning). Last Dose: ____ OXcarbazepine (OXcarbazepine 300 mg oral tablet) 1 Tabs Oral (given by mouth) once a day (at bedtime). Last Dose: ____ QUEtiapine (SEROquel) Oral (given by mouth) once a day (at bedtime). Last Dose: ____ sertraline (sertraline 100 mg oral tablet) 1 Tabs Oral (given by mouth) once a day (in the morning). Last Dose: ____ Other Medications ARIPiprazole (ARIPiprazole 10 mg oral tablet) 1 Tabs Oral (given by mouth) every day for 14 Days. nirmatrelvir-ritonavi r (Paxlovid) For Covid. OXcarbazepine (OXcarbazepine 150 mg oral tablet) 1 Tabs Oral (given by mouth) once a day (in the morning). OXcarbazepine (OXcarbazepine 300 mg oral tablet) 1 Tabs Oral (given by mouth) once a day (at bedtime). QUEtiapine (SEROquel) Oral (given by mouth) once a day (at bedtime). sertraline (sertraline 100 mg oral tablet) 1 Tabs Oral (given by mouth) once a day (in the morning). Care Team Members: Attending Physician: Haylee Morales PA-C Consulting Physician: Referring Physician: Provider Role Assigned Unassigned Haylee Morales PA-C ED MidLevel 12/03/2022 12:54:49 Follow up: With: Address: When: Emergency Department , only if needed Comments: Return to Emergency Department immediately for any new or worsening smyptoms, or if symptoms last longer than discussed. With: Address: When: Arnol Horner [address] [place] [address] [phone] Business (1) Comments: Please go to the walk-in clinic today before 4 PM for further evaluation and management With: Address: When: Shan Rivas [address] [place] [address] [phone] Business (1) Discharge Orders: Discharge Patient 12/03/22 13:37:00 EDT, Discharge to Home, Self, Right wrist sprain Return to Work/School 12/03/22 12:30:00 EDT, 12/03/22 13:37:00 EDT, 12/03/22 12:30:00 EDT, Right wrist sprain [facility] 12/03/22 13:36:00 EDT, 5 days, Right wrist sprain Patient Education Information: Wrist Sprain [facility] Poison Help line: . [facility] Hotline: [place] Tobacco Quit Line: [place], [place]) [address]: [phone] [place], [place]) [address]: [phone] [facility] [address] [facility]. [place], [place]: [phone] [facility] ED Note-Physicianon 12-04-19 ED Note-Physician Chief Complaint Patient here with known right wrist sprain. Patient stated that the pain is still there and wants to talk to doctor. History of Present Illness Patient is a 42-year-old female presenting to the emergency department for ongoing right wrist pain. Patient says she sprained her wrist back in August. She has been experiencing pain ever since and wanted some advice on what to do about it which prompted the emergency room department visit today. She rates her pain at 2 out of 10 intermittent and throbbing. 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 She is not taking any medications for her symptoms. She has had no new injuries except the injury she had in August. She has not followed up with her PCP or specialist. She has not taken any medications for her symptoms. Patient is not experiencing any headache, fevers, shortness of breath, chest pain, nausea, vomiting, abdominal pain, urinary stool changes. Review of Systems As reviewed in the HPI. All other systems reviewed are negative or normal. Physical Exam CONSTITUTIONAL: [well appearing in no acute distress] SKIN: [Warm, dry, and intact without rash] EYES: [extraocular movements are grossly intact, clear conjunctiva] HENT: [Normocephalic, atraumatic, moist mucus membranes] NECK: [no obvious swelling, normal range of motion] PULMONARY: [normal chest rise and fall, no respiratory distress or stridor CARDIOVASCULAR: [regular rate, distal extremities are warm and well perfused] GASTROINSTESTINAL: [nondistended, non-tender] GENITOURINARY: [deferred] NEUROLOGIC: [normal speech, moves all extremities] MUSCULOSKELETAL: [no gross deformities, atraumatic. no ecchymosis erythema or gross deformities noted over the wrist. No pain with palpation. Full active and passive range of motion, full strength, neurovascularly intact. ] PSYCHIATRIC: [normal mood and affect] Vitals & Measurements T: 36.7 ?C (Oral) HR: 80 (Peripheral) RR: 16 BP: 135/87 SpO2: 96% WT: 75 kg (Dosing) Additional Vitals No qualifying data available. Procedure No qualifying data available. ASA Documentation Medical Decision Making This report has been created using voice recognition software. It may contain minor errors which are inherent in voice recognition technology. Patient is a 42-year-old female presenting to the emergency department for ongoing right wrist pain after an injury 3 months ago. Patient is well-appearing in no acute distress, her vital signs are stable. Physical exam reveals no ecchymosis erythema or gross deformities noted over the wrist. No pain with palpation. Full active and passive range of motion, full strength, neurovascularly intact. Patient said no new injuries she is just having ongoing pain. Advised patient that she needs to see a specialist. Previous images that were taken were reviewed and there was no abnormalities noted. Discussed with patient that she will need to see orthopedics. Patient had asked about orthopedic institute [facility], information to establish care will be given at discharge, did advise patient that they do have a walk-in clinic that she can go to. Ibuprofen and a wrist brace will be given for comfort stability and pain. Risk and benefits of medications prescribed were discussed at length. Return precautions were discussed at length. Patient understands, is agreeable to current plan, has no questions and feels comfortable going home. The results of pertinent diagnostic studies and exam findings were discussed. The patient?s provisional diagnosis and plan of care were discussed with the patient and present family. The patient and/or present family expressed understanding of the diagnosis and plan. The nurse was instructed to provide written instructions and appropriate follow-up information. The patient understands their need and responsibility to obtain additional follow-up as instructed. The risks of medications administered and prescribed were discussed with the patient and family present. Reexamination/Reevalu ation Patient is resting comfortably at discharge. Vital signs stable. Assessment/Plan 1. Right wrist sprain Ordered: ibuprofen, 600 mg, Oral, Tab, Once, First Dose: 12/03/22 13:36:00 EDT, Stop Date: 12/03/22 13:36:00 EDT, STAT, Dispense From Location: [facility], 12/03/22 13:36:00 EDT Discharge Patient Return to Work/School [facility] Refresh vitals and sections below: Problem List/Past Medical History Ongoing Anxiety Depression Low serum potassium level Seasonal nasal allergies Historical No qualifying data Procedure/Surgical History wisdom teeth Medications Inpatient ibuprofen, 600 mg, Oral, Once Home ARIPiprazole 10 mg oral tablet, 10 mg= 1 tabs, Oral, Daily, Not taking: start 10/21 (after finishing 5 mg) OXcarbazepine 150 mg oral tablet, 150 mg= 1 tabs, Oral, qAM OXcarbazepine 300 mg oral tablet, 300 mg= 1 tabs, Oral, HS (at bedtime) Paxlovid, See Instructions SEROquel, Oral, HS (at bedtime) (more content not included)... Normal [facility] [id number] 11-30-2022 SARS-CoV-2 (COVID-19) RNA CHANTEL+probe Ql (Unsp spec) Not detected Normal [facility] Comment on above: Result Comment: Rapid NAAT: The specimen is NEGATIVE for SARS-CoV-2, the novel coronavirus associated with COVID-19. The ID NOW COVID-19 assay is designed to detect the virus that causes COVID-19 in patients with signs and symptoms of infection who are suspected of COVID-19. An individual without symptoms of COVID-19 and who is not shedding SARS-CoV-2 virus would expect to have a negative (not detected) result in this assay. Negative results should be treated as presumptive and, if inconsistent with clinical signs and symptoms or necessary for patient management, should be tested with an alternative molecular assay. Negative results do not preclude SARS-CoV-2 infection and should not be used as the sole basis for patient management decisions. Fact sheet for Healthcare Providers: https://www.fda.gov/media/077626/download Fact sheet for Patients: https://www.fda.gov/media/228487/download Methodology: Isothermal Nucleic Acid Amplification Performed By: #### C OV #### [facility] [address] [place] [address] [place] [address] Manager Cash: Quintin Cooper MD ED Clinical Summaryon 2022 ED Clinical Summary [address] [address] ED Clinical Summary Person Information Name: Rosangela Lindo Cristy/[facility] Age: 42 Years : 1980 Sex: Female PCP: Shan Rivas DO Marital Status: Phone: Race: White Ethnicity: Not or Language: Luxembourger Visit Reason: Headache; Headache Acuity: 4 Enc Type: Emergency Med Service: Emergency Medicine Arrival: 11/28/2022 08:15:54 Discharge: 11/28/2022 08:59:00 LOS: 000 00:44 Checkin: 11/28/2022 08:15:54 Checkout: 11/28/2022 08:59:00 Dispo Type: Home or Self Care Address: [address] [place] [address] [phone] Provider Notes: Diagnosis: 1:Sinus headache; 2:Post-COVID syndrome Problems No Problems Documented Smoking Status: Smoking Status Never (less than 100 in lifetime) Functional Status: Sensory Deficits: History of Falls: Mobility Assistance Prior to Admission: ADLs: Current Level of Assistance for Self-Care/Mobility: Cognitive Status: Allergies No Known Medication Allergies No Known Allergies Laboratory or Other Results This Visit (last charted value for your 11/28/2022 visit) No Laboratory or Other Results This Visit Measurements: Height: Weight: 87.5 kg Blood Pressure: /91 mmHg BMI: Procedures No Procedures Documented Immunizations No Immunizations Documented This Visit Final Med List: New Medications [id number], [address], [place] [phone], [phone] guaiFENesin (guaiFENesin 200 mg oral tablet) 1 Tabs Oral (given by mouth) 4 times a day as needed sinus symptoms for 3 Days. Refills: 0. Last Dose: ____ Medications that have not changed Other Medications ARIPiprazole (ARIPiprazole 10 mg oral tablet) 1 Tabs Oral (given by mouth) every day for 14 Days. Last Dose: ____ nirmatrelvir-ritonavi r (Paxlovid) For Covid. Last Dose: ____ OXcarbazepine (OXcarbazepine 150 mg oral tablet) 1 Tabs Oral (given by mouth) once a day (in the morning). Last Dose: ____ OXcarbazepine (OXcarbazepine 300 mg oral tablet) 1 Tabs Oral (given by mouth) once a day (at bedtime). Last Dose: ____ QUEtiapine (SEROquel) Oral (given by mouth) once a day (at bedtime). Last Dose: ____ sertraline (sertraline 100 mg oral tablet) 1 Tabs Oral (given by mouth) once a day (in the morning). Last Dose: ____ [id number], [address], [place] [phone], [phone] guaiFENesin (guaiFENesin 200 mg oral tablet) 1 Tabs Oral (given by mouth) 4 times a day as needed sinus symptoms for 3 Days. Refills: 0. Other Medications ARIPiprazole (ARIPiprazole 10 mg oral tablet) 1 Tabs Oral (given by mouth) every day for 14 Days. nirmatrelvir-ritonavi r (Paxlovid) For Covid. OXcarbazepine (OXcarbazepine 150 mg oral tablet) 1 Tabs Oral (given by mouth) once a day (in the morning). OXcarbazepine (OXcarbazepine 300 mg oral tablet) 1 Tabs Oral (given by mouth) once a day (at bedtime). QUEtiapine (SEROquel) Oral (given by mouth) once a day (at bedtime). sertraline (sertraline 100 mg oral tablet) 1 Tabs Oral (given by mouth) once a day (in the morning). Care Team Members: Attending Physician: Haylee Morales PA-C Consulting Physician: Referring Physician: Provider Role Assigned Unassigned Haylee Morales PA-C ED MidLevel 11/28/2022 08:20:20 Follow up: With: Address: When: [place] [address] [phone] Business (1) Within 3 to 5 days With: Address: When: Emergency Department , only if needed Comments: Return to Emergency Department immediately for any new or worsening smyptoms, or if symptoms last longer than discussed. Discharge Orders: Discharge Patient 11/28/22 8:41:00 EDT, Discharge to Home, Self, Sinus headache Return to Work/School 11/28/22 8:15:00 EDT, 11/28/22 8:42:00 EDT, Patient was seen in the emergency department between 815 and 9 AM on November 28, 2022. Patient is free to return to work., 11/28/22 8:15:00 EDT, Sinus headache Patient Education Information: Viral Syndrome (Adult) [facility] Poison Help line: . [facility] Hotline: [place] Tobacco Quit Line: [place], [place]) [address]: [phone] [place], [place]) [address]: [phone] [facility] [address] [facility] [place], [place]: [phone] Normal [facility] ED Note-Physicianon 11-29-19 ED Note-Physician Chief Complaint pt reports having a sinus headache for one week. History of Present Illness Patient is a 42 year old female presenting to the emergency department for ongoing sinus headache. Patient had COVID approximately 2 weeks ago. She has been having ongoing headache. She rates her pain at 5 out of 10 intermittent and throbbing. She said its above her eyebrows and below her eyes as well as in between her eyes. The area is tender to palpation. She tried some ibuprofen yesterday but its not been beneficial. She has not tried any other medications. She has not called her PCP. She did not go to work today due to the symptoms. Patient is not experiencing any headache, fevers, shortness of breath, chest pain, nausea, vomiting, abdominal pain, urinary stool changes. Review of Systems As reviewed in the HPI. All other systems reviewed are negative or normal. Physical Exam CONSTITUTIONAL: [well appearing in no acute distress] SKIN: [Warm, dry, and intact without rash] EYES: [extraocular movements are grossly intact, clear conjunctiva] HENT: [Normocephalic, atraumatic, moist mucus membranes. Tenderness to palpation of the frontal and maxillary sinus.] NECK: [no obvious swelling, normal range of motion] PULMONARY: [normal chest rise and fall, no respiratory distress or stridor] CARDIOVASCULAR: [regular rate, distal extremities are warm and well perfused] GASTROINSTESTINAL: [nondistended, non-tender] GENITOURINARY: [deferred] NEUROLOGIC: [normal speech, moves all extremities] MUSCULOSKELETAL: [no gross deformities, atraumatic] PSYCHIATRIC: [normal mood and affect] Vitals & Measurements T: 36.6 ?C (Oral) HR: 75 (Peripheral) RR: 18 BP: 141/91 SpO2: 95% HT: 157.5 cm WT: 87.5 kg (Dosing) Additional Vitals No qualifying data available. Procedure No qualifying data available. ASA Documentation Medical Decision Making This report has been created using voice recognition software. It may contain minor errors which are inherent in voice recognition technology. Patient is a 39-year-old female presenting to the emergency department for ongoing sinus headache. Patient is well-appearing in no acute distress, her vital signs are stable. Patient is afebrile. There are some tenderness palpation over the frontal and maxillary sinus region. Patient is otherwise feeling well. Patient will be given a single dose of Toradol and some guanfacine in the emergency department, prescription will be called in for guanfacine. Discussed with patient that she may be having some leftover symptoms from her COVID infection a few weeks ago. Other [id number] medications are recommended such as DayQuil and NyQuil for symptoms. Follow-up with PCP. Risk and benefits of medications prescribed were discussed at length. Return precautions were discussed at length. Patient understands, is agreeable to current plan, has no questions and feels comfortable going home. Based on the patient's history and physical I think the patient is suffering from a primary headache syndrome. I do not think this is a subarachnoid hemorrhage, dissection, venous thrombosis, meningitis, sinusitis, bleeding or tumor. I think they are stable to go home but are to return to the ED for worsening headache, fever, neck stiffness or neurological symptoms. Patient is improved and expresses understanding and agreement with this plan. The results of pertinent diagnostic studies and exam findings were discussed. The patient?s provisional diagnosis and plan of care were discussed with the patient and present family. The patient and/or present family expressed understanding of the diagnosis and plan. The nurse was instructed to provide written instructions and appropriate follow-up information. The patient understands their need and responsibility to obtain additional follow-up as instructed. The risks of medications administered and prescribed were discussed with the patient and family present. Reexamination/Reevalu ation Patient is resting comfortably at discharge. Vital signs stable. Assessment/Plan 1. Sinus headache Ordered: guaiFENesin, 1 tabs, Oral, QID, PRN, X 3 days, # 12 tabs, 0 Refill(s), 12/01/22 8:37:00 EDT, Pharmacy: [facility] #[id number] 2. Post-COVID syndrome Ordered: guaiFENesin, 1 tabs, Oral, QID, PRN, X 3 days, # 12 tabs, 0 Refill(s), 12/01/22 8:37:00 EDT, Pharmacy: [facility]/pharm[facility] #[id number] Orders: guaiFENesin, 100 mg, Oral, Liquid, Once, First Dose: 11/28/22 8:34:00 EDT, Stop Date: 11/28/22 8:34:00 EDT, Dispense From Location: [facility], 11/28/22 8:34:00 EDT ketorolac, 30 mg, IM, Injection, Once, First Dose: 11/28/22 8:34:00 EDT, Stop Date: 11/28/22 8:34:00 EDT, Dispense From Location: [facility], 11/28/22 8:34:00 EDT Refresh vitals and sections below: Problem List/Past Medical History Ongoing Anxiety Depression Low serum potassium level Seasonal nasal allergies Historical No qualifying data Procedure/Surgical History wisdom teeth Medications Inpatient gua (more content not included)... Normal [facility] ED Clinical Summaryon 2022 ED Clinical Summary [address] [address] ED Clinical Summary Person Information Name: Rosangela Lindo/[facility] Age: 42 Years : 1980 Sex: Female PCP: Shan Rivas DO Marital Status: Phone: Race: White Ethnicity: Not or Language: Luxembourger Visit Reason: Diarrhea; COVID Acuity: 4 Enc Type: Emergency Med Service: Emergency Medicine Arrival: 11/21/2022 00:51:42 Discharge: 11/21/2022 02:16:00 LOS: 000 01:25 Checkin: 11/21/2022 00:51:42 Checkout: 11/21/2022 02:16:00 Dispo Type: Home or Self Care Address: [address] [place] [address] [phone] Provider Notes: History of Present Illness Patient is a 42 years old?female with known history of anxiety, depression?presenting to the ER for?persistent fatigue,?diarrhea, chills?post COVID. ?Patient was diagnosed with COVID on 11/11/2022?after a few days of symptoms. ?She did get tested again on?11/14/2022 and was negative. ?However patient states she still has lingering symptoms and does not feel?well enough to go to work. ?She is coming in tonight to get?an extension?of work excuse. ?Otherwise no fever, no other related concerns. ? ? Review of Systems As reviewed in the HPI. All other systems reviewed are negative or normal. ? ? ? Physical Exam CONSTITUTIONAL: [well appearing in no acute distress] SKIN: [Warm, dry, and intact without rash] EYES: [extraocular movements are grossly intact, clear conjunctiva] HENT: [Normocephalic, atraumatic, moist mucus membranes] NECK: [no obvious swelling, normal range of motion] NEUROLOGIC: [normal speech, moves all extremities] MUSCULOSKELETAL: [no gross deformities, atraumatic] PSYCHIATRIC: [normal mood and affect] ? ? Diagnosis: 1:Diarrhea; 2:Post-COVID syndrome Problems No Problems Documented Smoking Status: Smoking Status Never (less than 100 in lifetime) Functional Status: Sensory Deficits: History of Falls: Mobility Assistance Prior to Admission: ADLs: Current Level of Assistance for Self-Care/Mobility: Cognitive Status: Allergies No Known Medication Allergies No Known Allergies Laboratory or Other Results This Visit (last charted value for your 11/21/2022 visit) No Laboratory or Other Results This Visit Measurements: Height: Weight: 88.8 kg Blood Pressure: /86 mmHg BMI: Procedures No Procedures Documented Immunizations No Immunizations Documented This Visit Final Med List: Medications that have not changed Other Medications ARIPiprazole (ARIPiprazole 10 mg oral tablet) 1 Tabs Oral (given by mouth) every day for 14 Days. Last Dose: ____ nirmatrelvir-ritonavi r (Paxlovid) For Covid. Last Dose: ____ OXcarbazepine (OXcarbazepine 150 mg oral tablet) 1 Tabs Oral (given by mouth) once a day (in the morning). Last Dose: ____ OXcarbazepine (OXcarbazepine 300 mg oral tablet) 1 Tabs Oral (given by mouth) once a day (at bedtime). Last Dose: ____ QUEtiapine (SEROquel) Oral (given by mouth) once a day (at bedtime). Last Dose: ____ sertraline (sertraline 100 mg oral tablet) 1 Tabs Oral (given by mouth) once a day (in the morning). Last Dose: ____ Other Medications ARIPiprazole (ARIPiprazole 10 mg oral tablet) 1 Tabs Oral (given by mouth) every day for 14 Days. nirmatrelvir-ritonavi r (Paxlovid) For Covid. OXcarbazepine (OXcarbazepine 150 mg oral tablet) 1 Tabs Oral (given by mouth) once a day (in the morning). OXcarbazepine (OXcarbazepine 300 mg oral tablet) 1 Tabs Oral (given by mouth) once a day (at bedtime). QUEtiapine (SEROquel) Oral (given by mouth) once a day (at bedtime). sertraline (sertraline 100 mg oral tablet) 1 Tabs Oral (given by mouth) once a day (in the morning). Care Team Members: Attending Physician: Dante Donnelly PA-C Consulting Physician: Referring Physician: Provider Role Assigned Unassigned Dante Donnelly PA-C ED MidLevel 11/21/2022 01:48:59 Follow up: With: Address: When: [place] [address] [phone] Business (1) Within 2 to 4 days Discharge Orders: Discharge Patient 11/21/22 1:56:00 EDT, Discharge to Home, Self Return to Work/School 11/21/22 1:56:00 EDT, 11/23/22 1:56:00 EDT, 11/23/22 1:56:00 EDT, 11/21/22 1:56:00 EDT Patient Education Information: Diarrhea, Unknown Cause; Treating Diarrhea [facility] Poison Help line: . [facility] Hotline: [place] Tobacco Quit Line: [facility] ([place], [place]) [address]: [phone] [facility] ([place], [place]) [address]: [phone] [facility] [address], [place]: [phone] [facility] ED Note-Physicianon 11-22-19 ED Note-Physician Chief Complaint I tested positive for covid last friday and then negative and I still feel rough. pt denies fever. pt c.o diarrhea and chills History of Present Illness Patient is a 42 years old female with known history of anxiety, depression presenting to the ER for persistent fatigue, diarrhea, chills post COVID. Patient was diagnosed with COVID on 11/11/2022 after a few days of symptoms. She did get tested again on 11/14/2022 and was negative. However patient states she still has lingering symptoms and does not feel well enough to go to work. She is coming in tonight to get an extension of work excuse. Otherwise no fever, no other related concerns. Review of Systems As reviewed in the HPI. All other systems reviewed are negative or normal. Physical Exam CONSTITUTIONAL: [well appearing in no acute distress] SKIN: [Warm, dry, and intact without rash] EYES: [extraocular movements are grossly intact, clear conjunctiva] HENT: [Normocephalic, atraumatic, moist mucus membranes] NECK: [no obvious swelling, normal range of motion] NEUROLOGIC: [normal speech, moves all extremities] MUSCULOSKELETAL: [no gross deformities, atraumatic] PSYCHIATRIC: [normal mood and affect] Vitals & Measurements T: 36.7 ?C (Oral) HR: 89 (Peripheral) RR: 18 BP: 131/86 SpO2: 94% HT: 157 cm WT: 88.8 kg (Dosing) Additional Vitals No qualifying data available. Medical Decision Making ED Course & MDMED Course & MDM Patient Presentation: Patient is a 42 years old female with known history of anxiety, depression presenting to the ER for persistent fatigue, diarrhea, chills post COVID. DIFFERENTIAL DIAGNOSIS: (In no particular order and not limited to following) Post COVID syndrome, common cold, viral gastroenteritis, food poisoning, dehydration, electrolyte imbalance Data and analysis: Patient otherwise appears to be stable and in no apparent distress. Exam was benign. I did have an extensive conversation with patient in regards to going back to work versus getting additional rest. We did agree that patient will be given a couple of days off work. I did advise that patient get Imodium [id number] to help with diarrhea. Drink clear fluid. Follow-up with PCP for further evaluation. Return to the emergency department for any worsening symptoms. Independent History: None Independent Clinician: None Labs/Imaging Reviewed: I have independently visualized and interpreted images/labs pertinent positives and negatives as follows: None Review of Past Medical/External records: Previous DC Summaries/Clinic Notes/Testing Reviewed if available. Notable Findings in MDM section above. Therapeutics Provided: None PULSE OX INTERPRETATION: Oxygen saturation is 94%, which is normal. Social Determinant of Health: ED Course/Progress Note: Procedures: Assessment/Plan 1. Diarrhea 2. Post-COVID syndrome Orders: Discharge Patient Return to Work/School Refresh vitals and sections below: Problem List/Past Medical History Ongoing Anxiety Depression Low serum potassium level Seasonal nasal allergies Historical No qualifying data Procedure/Surgical History wisdom teeth Medications Inpatient No active inpatient medications Home ARIPiprazole 10 mg oral tablet, 10 mg= 1 tabs, Oral, Daily, Not taking: start 10/21 (after finishing 5 mg) OXcarbazepine 150 mg oral tablet, 150 mg= 1 tabs, Oral, qAM OXcarbazepine 300 mg oral tablet, 300 mg= 1 tabs, Oral, HS (at bedtime) Paxlovid, See Instructions SEROquel, Oral, HS (at bedtime) sertraline 100 mg oral tablet, 100 mg= 1 tabs, Oral, qAM Allergies No Known Allergies No Known Medication Allergies Social History Alcohol Never Home/Environment Lives with Significant other. Sexual Sexually active: Yes. History of sexual abuse: No. Substance Abuse Denies All Tobacco Never (less than 100 in lifetime) Use:. Family History Cancer of colon: Father. Dementia: Grandfather (M). Diabetes: Grandfather (M). Stroke..: Grandfather (M). Thyroid disease: Mother. Diagnostic Results Electronically signed by Dante Donnelly PA-C 11/21/22 01:57 EDT Normal [facility] Consent for Treatmenton 11-02 Consent for Treatment [id number] .[id number]:127 Normal [facility] ED Clinical Summaryon 2022 ED Clinical Summary Normal [facility] ED Note-Physicianon 11-21-19 ED Note-Physician Normal [facility] Comment on above: Result Comment: Elec tronically Signed By: Bret Baker PA-C\.br\Date and Time Signed: 11/20/22 14:37 EDT\.br\Electronically Co-Signed By: Alan Zhu DO\.br\Date and Time Co-Signed: 11/20/22 19:06 EDT ED Patient Education Noteon 11-20-2022 ED Patient Education Note Normal [facility] ED Patient Summaryon 023 ED Patient Summary Normal [facility] Consent for Treatmenton 11-01 Consent for Treatment [id number]:127 Normal [facility] ED Clinical Summaryon 2022 ED Clinical Summary [place] [id number] ED Clinical Summary Person Information Name: Rosangela Lindo Cristy/[place] Age: 42 Years : 1980 Sex: Female PCP: Shan Rivas DO Marital Status: Phone: Race: White Ethnicity: Not or Language: Luxembourger Visit Reason: Anxiety; anxiety Acuity: 3 Enc Type: Emergency Med Service: Emergency Medicine Arrival: 11/16/2022 11:24:00 Discharge: 11/16/2022 12:10:00 LOS: 000 00:46 Checkin: 11/16/2022 11:24:00 Checkout: 11/16/2022 12:10:00 Dispo Type: Home or Self Care Address: [place] [address] [phone] Provider Notes: Diagnosis: 1:Anxiety Problems No Problems Documented Smoking Status: Functional Status: Sensory Deficits: History of Falls: Mobility Assistance Prior to Admission: ADLs: Current Level of Assistance for Self-Care/Mobility: Cognitive Status: Allergies No Known Medication Allergies No Known Allergies Laboratory or Other Results This Visit (last charted value for your 11/16/2022 visit) No Laboratory or Other Results This Visit Measurements: Height: Weight: 86.7 kg Blood Pressure: /67 mmHg BMI: Procedures No Procedures Documented Immunizations No Immunizations Documented This Visit Final Med List: Medications that have not changed Other Medications ARIPiprazole (ARIPiprazole 10 mg oral tablet) 1 Tabs Oral (given by mouth) every day for 14 Days. Last Dose: ____ nirmatrelvir-ritonavi r (Paxlovid) For Covid. Last Dose: ____ OXcarbazepine (OXcarbazepine 150 mg oral tablet) 1 Tabs Oral (given by mouth) once a day (in the morning). Last Dose: ____ OXcarbazepine (OXcarbazepine 300 mg oral tablet) 1 Tabs Oral (given by mouth) once a day (at bedtime). Last Dose: ____ QUEtiapine (SEROquel) Oral (given by mouth) once a day (at bedtime). Last Dose: ____ sertraline (sertraline 100 mg oral tablet) 1 Tabs Oral (given by mouth) once a day (in the morning). Last Dose: ____ Other Medications ARIPiprazole (ARIPiprazole 10 mg oral tablet) 1 Tabs Oral (given by mouth) every day for 14 Days. nirmatrelvir-ritonavi r (Paxlovid) For Covid. OXcarbazepine (OXcarbazepine 150 mg oral tablet) 1 Tabs Oral (given by mouth) once a day (in the morning). OXcarbazepine (OXcarbazepine 300 mg oral tablet) 1 Tabs Oral (given by mouth) once a day (at bedtime). QUEtiapine (SEROquel) Oral (given by mouth) once a day (at bedtime). sertraline (sertraline 100 mg oral tablet) 1 Tabs Oral (given by mouth) once a day (in the morning). Care Team Members: Attending Physician: Luisa Delaney DO Consulting Physician: Referring Physician: Provider Role Assigned Unassigned Luisa Delaney DO ED Provider 11/16/2022 11:30:51 Martina Sprague ED Nurse 11/16/2022 11:42:07 Follow up: With: Address: When: [place] [phone] Business (1) In 2 days Patient Education Information: Anxiety Reaction [facility] Poison Help line: . [facility] Hotline: [place] Tobacco Quit Line: [place], [place]) [address]: [phone] [place], [place]) [address]: [phone] [facility] [address] [facility]. [place], [place]: [phone] Normal [facility] ED Note-Physicianon 11-17-19 ED Note-Physician Chief Complaint anxiousness History of Present Illness Patient presents to the ED with complaints of feeling anxious. She notes she is prescribed Trileptal, Abilify, Zoloft, and Seroquel. She has not taken her medication in two days because she notes she is forgetful in doing so. She states she does have the medication at home. She notes a practitioner in [place] provides her mental health care and that her PCP is Dr. Rivas. She is willing to take her home medication. She states she has been sleeping well. She denies having other complaints. She plans to see her doctor in 2 days. She denies having thoughts of wanting to harm herself or others. She denies having acute depression. Review of Systems GENERAL: Negative for fever, chills EYES: Negative for acute changes NECK: Negative for pain CARDIOVASCULAR: Negative for chest pain RESPIRATORY: Negative for shortness of breath, cough ABDOMEN/GI: Negative for abdominal pain, nausea, vomiting, diarrhea BACK: Negative for pain MUSCULOSKELETAL: Negative for acute pain and swelling SKIN: Negative for rash, discoloration NEURO: Negative for headache, focal weakness, acute numbness, acute tingling Physical Exam CONSTITUTIONAL: Patient is awake and alert HEAD: Normocephalic, atraumatic HEENT: Moist mucus membranes, oropharynx clear EYES: Pupils are equally round and reactive to light, lids and lashes normal, clear conjunctiva, non-icteric sclera. No drainage NECK: Trachea midline, external neck normal, supple, no nuchal rigidity or meningismus PULMONARY: Clear to auscultation bilaterally with equal sounds. Normal rate and effort CARDIOVASCULAR: Regular rate and rhythm. GASTROINTESTINAL: Soft, non-tender, normal bowel sounds, no rebound or guarding BACK: No flank tenderness SKIN: Warm and dry, no evidence of cellulitis. No petechiae MUSCULOSKELETAL: Extremities without acute deformity. No edema or tenderness. No midline C/T/L spine tenderness. Normal distal pulses and cap refill. NEUROLOGIC: No gross motor or sensory deficits. Normal tone. Normal coordination. PSYCHIATRIC: Normal mood and affect. She is smiling. Vitals & Measurements T: 36.8 ?C (Oral) HR: 98 (Peripheral) RR: 20 BP: 139/67 SpO2: 99% WT: 86.7 kg (Dosing) Additional Vitals No qualifying data available. Procedure No qualifying data available. ASA Documentation Medical Decision Making Appears well, NAD. ED return precautions reviewed and follow up plan discussed. She notes she will resume her medications. I have urged her to return immediately with any changes or concerns. She notes she will do so and plans to be at home with her . Assessment/Plan 1. Anxiety Orders: Discharge Patient Refresh vitals and sections below: Problem List/Past Medical History Ongoing Anxiety Depression Low serum potassium level Seasonal nasal allergies Historical No qualifying data Procedure/Surgical History wisdom teeth Medications Inpatient No active inpatient medications Home ARIPiprazole 10 mg oral tablet, 10 mg= 1 tabs, Oral, Daily, Not taking: start 10/21 (after finishing 5 mg) OXcarbazepine 150 mg oral tablet, 150 mg= 1 tabs, Oral, qAM OXcarbazepine 300 mg oral tablet, 300 mg= 1 tabs, Oral, HS (at bedtime) Paxlovid, See Instructions SEROquel, Oral, HS (at bedtime) sertraline 100 mg oral tablet, 100 mg= 1 tabs, Oral, qAM Allergies No Known Allergies No Known Medication Allergies Social History Alcohol Never Home/Environment Lives with Significant other. Sexual Sexually active: Yes. History of sexual abuse: No. Substance Abuse Denies All Tobacco Never (less than 100 in lifetime) Use:. Family History Cancer of colon: Father. Dementia: Grandfather (M). Diabetes: Grandfather (M). Stroke..: Grandfather (M). Thyroid disease: Mother. Diagnostic Results Electronically signed by Rhett DO Luisa Martineze 11/16/22 19:45 EDT Normal [facility] Consent for Treatmenton 11-01 Consent for Treatment [id number] .[id number]:127 Normal [facility] ED Clinical Summaryon 2022 ED Clinical Summary Normal [facility] ED Note-Physicianon 11-15-19 ED Note-Physician [facility] Comment on above: Result Comment: Elec tronically Signed By: Becky Bentley, Matt Rodarte.br\Date and Time Signed: 11/14/22 10:45 EDT ED Patient Education Noteon 11-14-2022 ED Patient Education Note Normal [facility] ED Patient Summaryon 023 ED Patient Summary Normal [facility] Urgent Care Office/Clinic No andreas 11-13-2022 Urgent Care Office/Clinic Note Chief Complaint pt states she was pos for covid last . requesting to be test for covid again History of Present Illness Rosangela Lindo is a 42 Years old Female who presents for COVID testing. Patient states that last she was positive for COVID when her symptoms started. Today is day 6 for her and she wanted to retest for COVID so she could return to work . Patient states that symptoms have improved and she is no longer experiencing a fever or vomiting. She states that she does still have some nasal congestion and a cough. She is not experiencing any shortness of breath or wheezing. No chronic respiratory conditions. Denies any ktmw-[id number] medications for symptom management. Review of Systems General Other General: No fever, chills EENMT Ear pain: No Nasal congestion: Yes Nasal discharge: Yes Sore_throat: No Gastrointestinal Diarrhea: No Nausea: No Vomiting: No Musculoskeletal Muscle aches: No Neurological Headache: No Respiratory Cough: Yes Shortness_of_breath: No Wheezing: No Physical Exam Vitals & Measurements T: 36.8 ?C (Oral) HR: 102 (Peripheral) RR: 18 BP: 117/83 SpO2: 98 HT: 157 cm WT: 86.5 kg WT: 86.5 kg (Dosing) BMI: 35.09 General: Alert and oriented, well nourished, no acute distress. HENT: Normocephalic, pearly canales tympanic membranes, normal hearing, moist oral mucosa, no sinus tenderness. Oropharynx without erythema, swelling or exudate. Neck: Supple, non-tender, no lymphadenopathy. Lungs: Clear to auscultation, non-labored respiration. Heart: Rapid rate, regular rhythm, no murmur. Abdomen: Soft, non-tender, non-distended, normal bowel sounds. Skin: Skin is warm, dry and pink. Neurologic: Awake, alert, and oriented X3. Psychiatric: Cooperative, appropriate mood and affect. Additional Vitals No qualifying data available. Assessment/Plan 1. Encounter for laboratory testing for COVID-19 virus Rapid COVID-19 Test: NEGATIVE. I recommend taking an antihistamine medication, either Zyrtec (cetirizine), Claritin (loratadine) or Maria (fexofenadine) daily to help dry out nasal secretions and sinus drainage. Generic brands that I have listed are O.K. I recommend using Flonase (Fluticasone is generic, which is O.K.) 2 sprays in each nostril once daily in the morning. May also use nasal saline as directed on bottle. This is an anti-inflammatory nasal medication which will work to decrease the inflammation in your nasal passages and sinuses. May take Tylenol and/or ibuprofen as directed on packaging as needed for headaches, fevers, body aches, sore throat and other pain. Delsym (dextromethorphan) every 12 hours as needed for cough OR Robitussin, should your cough worsen. Follow-up with the family doctor in the next 7-10 days, sooner if needed. Go to emergency department for new or worsening of symptoms as discussed. Medical Decision Making Chronic conditions NOT treated during this visit that affected my overall medical decision making: [] Treatment plans discussed but not opted for at this time: [] Prescribed medication that requires intensive monitoring for toxicity: [] I have reviewed the patient?s medication list for medication interactions/contrain dications and/or for upcoming procedures: [yes] Time Spent with the Patient I have personally spent [22] minutes on this date, directly related to today's patient visit, including pre and post visit work, for this date of service. Time listed does not include time spent on separately billable services. Physician Comments Reviewed assessment and plan as explained above and patient is agreeable. No questions upon discharge. Patient medical history reviewed, vital signs and nurses notes reviewed as documented. Problem List/Past Medical History Ongoing Anxiety Depression Low serum potassium level Seasonal nasal allergies Historical No qualifying data Procedure/Surgical History wisdom teeth Medications ARIPiprazole 10 mg oral tablet, 10 mg= 1 tabs, Oral, Daily, Not taking: start 10/21 (after finishing 5 mg) ARIPiprazole 15 mg oral tablet, 15 mg= 1 tabs, Oral, Daily, Not taking: start 11/04 (after finishing 10 mg) ARIPiprazole 20 mg oral tablet, 20 mg= 1 tabs, Oral, Daily, Not taking: start 11/11 (after finishing 15 mg) ARIPiprazole 5 mg oral tablet, 5 mg= 1 tabs, Oral, Daily OXcarbazepine 150 mg oral tablet, 150 mg= 1 tabs, Oral, qAM OXcarbazepine 300 mg oral tablet, 300 mg= 1 tabs, Oral, HS (at bedtime) Paxlovid 150 mg-100 mg (150 mg-100 mg Dose) oral tablet, 2 tabs, Oral, BID QUEtiapine 25 mg oral tablet, 25 mg= 1 tabs, Oral, HS (at bedtime) sertraline 100 mg oral tablet, 100 mg= 1 tabs, Oral, qAM Allergies No Known Allergies No Known Medication Allergies Social History Alcohol Never Home/Environment Lives with Significant other. Sexual Sexually active: Yes. History of sexual abuse: No. Substance Abuse Denies All Tobacco Never (less than 100 in lifetime) Use:. (more content not included)... Normal [facility] COV19 Rapidon 11-12-2022 LAB ONLY Result Called? Yes Critical ly abnormal [facility] Comment on above: Result Comment: Test completion time: 11/12/2022 07:49:45 EDT Called date and time: 11/12/2022 07:49:47 EDT Result called to and read back by: Haylee Keen EMD, RN 11/12/2022 07:49:55 EDT [facility]. Performed By: #### . Urinalysis Microscopic Auto #### [place] [id number] Reason for Rapid Test Inpatient Normal [facility] Comment on above: Performed By: #### . Urinalysis Microscopic Auto #### [place] [id number] SARS-CoV-2 (COVID-19) RNA CHANTEL+probe Ql (Unsp spec) Positive Abnormal Negative [facility] Comment on above: Result Comment: The 2019 novel coronavirus SARS-CoV-2 target nucleic acids are detected. This test is for the detection of SARS-CoV-2 RNA. Positive results are indicative of active infection with SARS-CoV-2. Positive results do not rule out bacterial infection or co-infection with other viruses. Negative results should be treated as presumptive and, if inconsistent with clinical signs and symptoms or necessary for patient management, should be tested with an alternative molecular assay.Negative results do not preclude SARS-CoV-2 infection and should not be used as the sole basis for treatment or other patient management decisions. Clinical correlation with patient history and other diagnostic information is necessary to determine patient infection status. ADDITIONAL INFORMATION: Testing was performed using the ID NOW COVID-19 test by [employer], which has received Emergency Use Authorization (EUA) by the U.S. Food and Drug Administration. The [employer] ID NOW COVID-19 test performs best when patients are tested within the first 7 days of symptom onset. Results should be interpreted with caution for asymptomatic patients or those tested outside the 7 day target. Refer to CDC guidelines for further testing algorithms. Fact sheets for this Emergency Use Authorization (EUA) assay can be found at the following links: Fact Sheet for HealthCare Providers: https://www.[employer].gov/media/057856/download Fact Sheet for Patients: https://www.[employer].gov/media/678564/download Performed By: #### . Urinalysis Microscopic Auto #### [address] [id number] ED Clinical Summaryon 2022 ED Clinical Summary [address] [address] ED Clinical Summary Person Information Name: Rosangela Lindo Cristy/[facility] Age: 42 Years : 1980 Sex: Female PCP: Da Pierce DO Marital Status: Phone: Race: White Ethnicity: Not or Language: Luxembourger Visit Reason: Covid test; covid test Acuity: 5 Enc Type: Emergency Med Service: Emergency Medicine Arrival: 11/12/2022 07:01:30 Discharge: 11/12/2022 08:02:00 LOS: 000 01:01 Checkin: 11/12/2022 07:01:30 Checkout: 11/12/2022 08:02:00 Dispo Type: Home or Self Care Address: [address] [place] [phone] Provider Notes: Diagnosis: 1:COVID-19 virus infection Problems No Problems Documented Smoking Status: Smoking Status Never (less than 100 in lifetime) Functional Status: Sensory Deficits: History of Falls: Mobility Assistance Prior to Admission: ADLs: Current Level of Assistance for Self-Care/Mobility: Cognitive Status: Allergies No Known Medication Allergies No Known Allergies Laboratory or Other Results This Visit (last charted value for your 11/12/2022 visit) Molecular 11/12/2022 7:28 AM SARS-CoV-2 RNA Detection: Positive Measurements: Height: Weight: 86.6 kg Blood Pressure: /82 mmHg BMI: Procedures No Procedures Documented Immunizations No Immunizations Documented This Visit Final Med List: Medications that have not changed Other Medications ARIPiprazole (ARIPiprazole 10 mg oral tablet) 1 Tabs Oral (given by mouth) every day for 14 Days. Last Dose: ____ ARIPiprazole (ARIPiprazole 15 mg oral tablet) 1 Tabs Oral (given by mouth) every day for 7 Days. Last Dose: ____ ARIPiprazole (ARIPiprazole 20 mg oral tablet) 1 Tabs Oral (given by mouth) every day for 30 Days. Last Dose: ____ ARIPiprazole (ARIPiprazole 5 mg oral tablet) 1 Tabs Oral (given by mouth) every day for 7 Days. Last Dose: ____ nirmatrelvir-ritonavi r (Paxlovid 150 mg-100 mg (150 mg-100 mg Dose) oral tablet) 2 Tabs Oral (given by mouth) 2 times a day for 5 Days. Refills: 0., Each dose of 2 tablets contains 1 nirmatrelvir 150 mg tablets and 1 ritonavir 100 mg tablet Last Dose: ____ OXcarbazepine (OXcarbazepine 150 mg oral tablet) 1 Tabs Oral (given by mouth) once a day (in the morning). Last Dose: ____ OXcarbazepine (OXcarbazepine 300 mg oral tablet) 1 Tabs Oral (given by mouth) once a day (at bedtime). Last Dose: ____ QUEtiapine (QUEtiapine 25 mg oral tablet) 1 Tabs Oral (given by mouth) once a day (at bedtime). Last Dose: ____ sertraline (sertraline 100 mg oral tablet) 1 Tabs Oral (given by mouth) once a day (in the morning). Last Dose: ____ Other Medications ARIPiprazole (ARIPiprazole 10 mg oral tablet) 1 Tabs Oral (given by mouth) every day for 14 Days. ARIPiprazole (ARIPiprazole 15 mg oral tablet) 1 Tabs Oral (given by mouth) every day for 7 Days. ARIPiprazole (ARIPiprazole 20 mg oral tablet) 1 Tabs Oral (given by mouth) every day for 30 Days. ARIPiprazole (ARIPiprazole 5 mg oral tablet) 1 Tabs Oral (given by mouth) every day for 7 Days. nirmatrelvir-ritonavi r (Paxlovid 150 mg-100 mg (150 mg-100 mg Dose) oral tablet) 2 Tabs Oral (given by mouth) 2 times a day for 5 Days. Refills: 0., Each dose of 2 tablets contains 1 nirmatrelvir 150 mg tablets and 1 ritonavir 100 mg tablet OXcarbazepine (OXcarbazepine 150 mg oral tablet) 1 Tabs Oral (given by mouth) once a day (in the morning). OXcarbazepine (OXcarbazepine 300 mg oral tablet) 1 Tabs Oral (given by mouth) once a day (at bedtime). QUEtiapine (QUEtiapine 25 mg oral tablet) 1 Tabs Oral (given by mouth) once a day (at bedtime). sertraline (sertraline 100 mg oral tablet) 1 Tabs Oral (given by mouth) once a day (in the morning). Care Team Members: Attending Physician: Raheem Villa MD Consulting Physician: Referring Physician: Provider Role Assigned Unassigned Raheem Villa MD ED Provider 11/12/2022 07:08:28 Follow up: With: Address: When: [address] [place] [address] [phone] Business (1) Within 2 to 4 days, only if needed Discharge Orders: Discharge Patient 11/12/22 7:55:00 EDT, Discharge to Home, Self Return to Work/School 11/12/22 7:55:00 EDT, 11/14/22 7:55:00 EDT, positive covid test, 11/12/22 7:55:00 EDT, COVID-19 virus infection Patient Education Information: COVID DC instructions (FVIVIO) (Custom) [facility] Poison Help line: . [facility] Hotline: [place] Tobacco Quit Line: [place], [place]) [address]: [phone] [place], [place]) [address]: [phone] [facility] [address], [place]: 419-4 (more content not included)... Normal [facility] ED Note-Physicianon 11-13-19 ED Note-Physician Chief Complaint Pt was here Friday night and tested positive for Covid. Pt is requesting a re-test. History of Present Illness Patient is a 42 year old female presenting to the ED for a COVID test. Patient states she wants to be tested a 3rd time for COVID as she was talking to her last night, and he does not think she has it. She was previously here on the Friday night and tested positive for COVID. Her and her began having symptoms last week, and patient complains of sinus congestion and a sinus headache. Symptoms started last . She also complains of one episode of vomiting last night but denies feeling nauseous currently. She also denies cough or fever. Patient has received 3 Pfizer COVID vaccinations. She is on Trileptal, Zoloft, Abilify, and Seroquel. Her surgical history includes wisdom teeth removal. She denies smoking, alcohol, or drug use. Review of Systems As reviewed in the HPI. All other systems reviewed are negative or normal. Physical Exam CONSTITUTIONAL: [no apparent distress, well appearing] SKIN: [warm, dry, no jaundice, hives or petechiae] EYES: [pupils are equally round, extraocular movements intact without nystagmus, clear conjunctiva, non-icteric sclera] HENT: [normocephalic, atraumatic, moist mucus membranes, oropharynx clear without exudates] NECK: [Nontender and supple with no nuchal rigidity, no lymphadenopathy, full range of motion] PULMONARY: [clear to auscultation without wheezes, rhonchi, or rales, normal excursion, no accessory muscle use and no stridor] CARDIOVASCULAR: [regular rate, rhythm, normal S1 and S2. No appreciated murmurs. Strong radial pulses with intact distal perfusion] GASTROINTESTINAL: [soft, non-tender, non-distended, no palpable masses, no rebound or guarding] GENITOURINARY: [No costovertebral angle tenderness to palpation] LYMPHATICS: [no edema in lower extremities, no lymphadenopathy] MUSCULOSKELETAL: [Extremities are nontender to palpation and have no gross deformity, no edema, redness, or swelling] NEUROLOGIC: [alert, normal mentation and speech. Moves all extremities x 4 without motor or sensory deficit] PSYCHIATRIC: [normal mood and affect, thought process is clear and linear] Vitals & Measurements T: 36.5 ?C (Oral) HR: 100 (Peripheral) RR: 16 BP: 129/82 SpO2: 95% HT: 158 cm WT: 86.6 kg (Dosing) Additional Vitals No qualifying data available. Procedure No qualifying data available. ASA Documentation Medical Decision Making Elma Silverio scribing for and in the presence of Dr. Campbell. Scribe Attestation: The information in this document, created by the medical insurance coder for me, accurately reflects the services I personally performed and the decisions made by me. Scribe Attestation: The information in this document, created by the medical insurance coder for me, accurately reflects the services I personally performed and the decisions made by me. This report has been created using voice recognition software. It may contain minor errors which are inherent in voice recognition technology. MEDICAL DECISION MAKING Number and Complexity of Problems Differential Diagnosis: _covid 19, viral syndrome MDM Data External documents reviewed: _ My EKG interpretation: _ My CT interpretation: _ My X-ray interpretation: _ My Ultrasound interpretation: _ Decision rules/scores evaluated: _ Discussed with: _ Decision rules/scores evaluated: _ ? HEART Score: Not Completed ? PERC Rule: _ ? NEXUS C-spine Criteria: _ ? Rampart Ankle Rule: _ ? Rampart Knee Rule: _ ? Wells Criteria for DVT: _ ? Wells Criteria for PE: _ Discussed with: _ Treatment and Disposition ED Course: _covid test Shared decision making: _discussed test result and plan - patient agreeable Code status: _not addressed Reexamination/Reevalu ation unchanged Assessment/Plan 1. COVID-19 virus infection Plan:rest push fluids, follow up with PCP within a few days, return for any change or concerns. Ordered: Return to Work/School Orders: Discharge Patient Refresh vitals and sections below: Problem List/Past Medical History Ongoing Anxiety Depression Low serum potassium level Seasonal nasal allergies Historical No qualifying data Procedure/Surgical History wisdom teeth Medications Inpatient No active inpatient medications Home ARIPiprazole 10 mg oral tablet, 10 mg= 1 tabs, Oral, Daily, Not taking: start 10/21 (after finishing 5 mg) ARIPiprazole 15 mg oral tablet, 15 mg= 1 tabs, Oral, Daily, Not taking: start 11/04 (after finishing 10 mg) ARIPiprazole 20 mg oral tablet, 20 mg= 1 tabs, Oral, Daily, Not taking: start 11/11 (after finishing 15 mg) ARIPiprazole 5 mg oral tablet, 5 mg= 1 tabs, Oral, Daily OXcarbazepine 150 mg oral tablet, 150 mg= 1 tabs, Oral, qAM OXcarbazepine 300 mg oral tablet, 300 mg= 1 tabs, Oral, HS (at bedtime) Paxlovid 150 mg-100 mg (150 mg-100 mg Dose) oral tablet, 2 tabs, Oral, BID QUEtiapine 25 mg oral tablet, 25 mg= 1 tab (more content not included)... Normal [facility] COV19 Rapidon 11-11-2022 LAB ONLY Result Called? Yes Critical ly abnormal [facility] Comment on above: Result Comment: Test completion time: 0003 Called date and time: 11/11/2022 00:04:31 EDT Result called to and read back by: Dasha Muir RELOCATION SERVICES SPECIALIST (First, Last, Title, Location) Performed By: #### A #### [address] [address] Reason for Rapid Test Inpatient Normal [facility] Comment on above: Performed By: #### A #### [address] [address] SARS-CoV-2 (COVID-19) RNA CHANTEL+probe Ql (Unsp spec) Positive Abnormal Negative [facility] Comment on above: Result Comment: The 2019 novel coronavirus SARS-CoV-2 target nucleic acids are detected. This test is for the detection of SARS-CoV-2 RNA. Positive results are indicative of active infection with SARS-CoV-2. Positive results do not rule out bacterial infection or co-infection with other viruses. Negative results should be treated as presumptive and, if inconsistent with clinical signs and symptoms or necessary for patient management, should be tested with an alternative molecular assay.Negative results do not preclude SARS-CoV-2 infection and should not be used as the sole basis for treatment or other patient management decisions. Clinical correlation with patient history and other diagnostic information is necessary to determine patient infection status. ADDITIONAL INFORMATION: Testing was performed using the ID NOW COVID-19 test by [employer], which has received Emergency Use Authorization (EUA) by the U.S. Food and Drug Administration. The [employer] ID NOW COVID-19 test performs best when patients are tested within the first 7 days of symptom onset. Results should be interpreted with caution for asymptomatic patients or those tested outside the 7 day target. Refer to CDC guidelines for further testing algorithms. Fact sheets for this Emergency Use Authorization (EUA) assay can be found at the following links: Fact Sheet for HealthCare Providers: https://www.fda.gov/media/594039/download Fact Sheet for Patients: https://www.fda.gov/media/807214/download Performed By: #### A #### [address] [address] COVID-19 & Influenza Comboon 11-11-2022 Influenza A by PCR Negative Negative [facility] Influenza B by PCR Negative Negative [facility] Interpretation and review of laboratory results Abnormal [facility] SARS-CoV-2 (COVID-19) RNA CHANTEL+probe Ql (Unsp spec) Positive Abnormal Negative [facility] Comment on above: Fact Sheet for HCP: https://www.fda.gov/media/464362/download Fact Sheet for Patients: https://www.fda.gov/media/620611/download Is this test for diagnosis or screening?->Diagnosis of ill patient [facility] ED Clinical Summaryon 2022 ED Clinical Summary [address] [address] ED Clinical Summary Person Information Name: Rosangela Lindo Cristy/[facility] Age: 42 Years : 1980 Sex: Female PCP: Da Pierce DO Marital Status: Phone: Race: White Ethnicity: Not or Language: Luxembourger Visit Reason: Medical screening exam; Cough Acuity: 5 Enc Type: Emergency Med Service: Emergency Medicine Arrival: 11/11/2022 01:15:22 Discharge: 11/11/2022 01:47:00 LOS: 000 00:32 Checkin: 11/11/2022 01:15:22 Checkout: 11/11/2022 01:47:00 Dispo Type: Home or Self Care Address: [address] [place] [phone] Provider Notes: History of Present Illness 42-year-old female who has been having a cough congestion headache sore throat. ?She states the symptoms have been ongoing for 1 day.? She?also has?a spouse who is having similar symptoms.? No other significant medical history.? No fevers or chills no?loss of taste or smell. Physical Exam Physical Examination ? General:? Well appearing, speaking in full sentences Skin: No skin rash Head: Normocephalic/ atraumatic Neck: Supple Eye: EOMI, normal conjunctiva ENT:? Moist oral mucosa, nares patent Cardiovascular:? RRR, 2+ pulses radial Respiratory: Non labored, clear breath sounds Back: Normal ROM Musculoskeletal:? Moves arms and legs and crosses midline Gastrointestinal: non distended Neurological: A&O x 4,? no focal neuro deficits Psych: Appropriate behavior, relaxed Diagnosis: 1:COVID-19; 2:Cough Problems No Problems Documented Smoking Status: Smoking Status Never (less than 100 in lifetime) Functional Status: Sensory Deficits: History of Falls: Mobility Assistance Prior to Admission: ADLs: Current Level of Assistance for Self-Care/Mobility: Cognitive Status: Allergies No Known Medication Allergies No Known Allergies Laboratory or Other Results This Visit (last charted value for your 11/11/2022 visit) No Laboratory or Other Results This Visit Measurements: Height: Weight: 86.9 kg Blood Pressure: /79 mmHg BMI: Procedures No Procedures Documented Immunizations No Immunizations Documented This Visit Final Med List: New Medications [id number], [address] [place], [place] [id number], [phone] nirmatrelvir-ritonavi r (Paxlovid 150 mg-100 mg (150 mg-100 mg Dose) oral tablet) 2 Tabs Oral (given by mouth) 2 times a day for 5 Days. Refills: 0., Each dose of 2 tablets contains 1 nirmatrelvir 150 mg tablets and 1 ritonavir 100 mg tablet Last Dose: ____ Medications that have not changed Other Medications ARIPiprazole (ARIPiprazole 10 mg oral tablet) 1 Tabs Oral (given by mouth) every day for 14 Days. Last Dose: ____ ARIPiprazole (ARIPiprazole 15 mg oral tablet) 1 Tabs Oral (given by mouth) every day for 7 Days. Last Dose: ____ ARIPiprazole (ARIPiprazole 20 mg oral tablet) 1 Tabs Oral (given by mouth) every day for 30 Days. Last Dose: ____ ARIPiprazole (ARIPiprazole 5 mg oral tablet) 1 Tabs Oral (given by mouth) every day for 7 Days. Last Dose: ____ OXcarbazepine (OXcarbazepine 150 mg oral tablet) 1 Tabs Oral (given by mouth) once a day (in the morning). Last Dose: ____ OXcarbazepine (OXcarbazepine 300 mg oral tablet) 1 Tabs Oral (given by mouth) once a day (at bedtime). Last Dose: ____ QUEtiapine (QUEtiapine 25 mg oral tablet) 1 Tabs Oral (given by mouth) once a day (at bedtime). Last Dose: ____ sertraline (sertraline 100 mg oral tablet) 1 Tabs Oral (given by mouth) once a day (in the morning). Last Dose: ____ No Longer Take the Following Medications lurasidone (Latuda 20 mg oral tablet) 1 Tabs Oral (given by mouth) once a day (in the evening). evening meal. Stop Taking Reason: [id number], [address] [place], [place] [phone], [phone] nirmatrelvir-ritonavi r (Paxlovid 150 mg-100 mg (150 mg-100 mg Dose) oral tablet) 2 Tabs Oral (given by mouth) 2 times a day for 5 Days. Refills: 0., Each dose of 2 tablets contains 1 nirmatrelvir 150 mg tablets and 1 ritonavir 100 mg tablet Other Medications ARIPiprazole (ARIPiprazole 10 mg oral tablet) 1 Tabs Oral (given by mouth) every day for 14 Days. ARIPiprazole (ARIPiprazole 15 mg oral tablet) 1 Tabs Oral (given by mouth) every day for 7 Days. ARIPiprazole (ARIPiprazole 20 mg oral tablet) 1 Tabs Oral (given by mouth) every day for 30 Days. ARIPiprazole (ARIPiprazole 5 mg oral tablet) 1 Tabs Oral (given by mouth) every day for 7 Days. OXcarbazepine (OXcarbazepine 150 mg oral tablet) 1 Tabs Oral (given by mouth) once a day (in the morning). OXcarbazepine (OXcarbazepine 300 mg oral tablet) 1 Tabs Oral (given by mouth) once a day (at bedtime). QUEtiapine (QUEtiapine 25 mg oral tablet) 1 Ta (more content not included)... Normal [facility] ED Clinical Summary [facility] [address] [place] [address] ED Clinical Summary Person Information Name: Rosangela Lindo [place] Age: 42 Years : 1980 Sex: Female PCP: Da Pierce DO Marital Status: Phone: Race: White Ethnicity: Not or Language: Luxembourger Visit Reason: Cough; Throat Pain Acuity: 4 Enc Type: Emergency Med Service: Emergency Medicine Arrival: 11/10/2022 23:25:48 Discharge: 11/11/2022 00:31:00 LOS: 000 01:06 Checkin: 11/10/2022 23:25:48 Checkout: 11/11/2022 00:31:00 Dispo Type: Left Without Being Seen Address: [address] [place] [phone] Provider Notes: Diagnosis: Problems No Problems Documented Smoking Status: Smoking Status Never (less than 100 in lifetime) Functional Status: Sensory Deficits: History of Falls: Mobility Assistance Prior to Admission: ADLs: Current Level of Assistance for Self-Care/Mobility: Cognitive Status: Allergies No Known Medication Allergies No Known Allergies Laboratory or Other Results This Visit (last charted value for your 11/10/2022 visit) Molecular 11/10/2022 11:38 PM SARS-CoV-2 RNA Detection: Positive Misc. Micro Rapid Test 11/10/2022 11:38 PM Influenza A Ag: Negative Influenza B Ag: Negative Measurements: Height: Weight: 87.4 kg Blood Pressure: /86 mmHg BMI: Procedures No Procedures Documented Immunizations No Immunizations Documented This Visit Final Med List: Medications that have not changed Other Medications ARIPiprazole (ARIPiprazole 10 mg oral tablet) 1 Tabs Oral (given by mouth) every day for 14 Days. Last Dose: ____ ARIPiprazole (ARIPiprazole 15 mg oral tablet) 1 Tabs Oral (given by mouth) every day for 7 Days. Last Dose: ____ ARIPiprazole (ARIPiprazole 20 mg oral tablet) 1 Tabs Oral (given by mouth) every day for 30 Days. Last Dose: ____ ARIPiprazole (ARIPiprazole 5 mg oral tablet) 1 Tabs Oral (given by mouth) every day for 7 Days. Last Dose: ____ lurasidone (Latuda 20 mg oral tablet) 1 Tabs Oral (given by mouth) once a day (in the evening). evening meal. Last Dose: ____ OXcarbazepine (OXcarbazepine 150 mg oral tablet) 1 Tabs Oral (given by mouth) once a day (in the morning). Last Dose: ____ OXcarbazepine (OXcarbazepine 300 mg oral tablet) 1 Tabs Oral (given by mouth) once a day (at bedtime). Last Dose: ____ QUEtiapine (QUEtiapine 25 mg oral tablet) 1 Tabs Oral (given by mouth) once a day (at bedtime). Last Dose: ____ sertraline (sertraline 100 mg oral tablet) 1 Tabs Oral (given by mouth) once a day (in the morning). Last Dose: ____ Other Medications ARIPiprazole (ARIPiprazole 10 mg oral tablet) 1 Tabs Oral (given by mouth) every day for 14 Days. ARIPiprazole (ARIPiprazole 15 mg oral tablet) 1 Tabs Oral (given by mouth) every day for 7 Days. ARIPiprazole (ARIPiprazole 20 mg oral tablet) 1 Tabs Oral (given by mouth) every day for 30 Days. ARIPiprazole (ARIPiprazole 5 mg oral tablet) 1 Tabs Oral (given by mouth) every day for 7 Days. lurasidone (Latuda 20 mg oral tablet) 1 Tabs Oral (given by mouth) once a day (in the evening). evening meal. OXcarbazepine (OXcarbazepine 150 mg oral tablet) 1 Tabs Oral (given by mouth) once a day (in the morning). OXcarbazepine (OXcarbazepine 300 mg oral tablet) 1 Tabs Oral (given by mouth) once a day (at bedtime). QUEtiapine (QUEtiapine 25 mg oral tablet) 1 Tabs Oral (given by mouth) once a day (at bedtime). sertraline (sertraline 100 mg oral tablet) 1 Tabs Oral (given by mouth) once a day (in the morning). Care Team Members: Attending Physician: Consulting Physician: Referring Physician: Follow up: Discharge Orders: Patient Education Information: [facility] Poison Help line: . [facility] Hotline: [place] Tobacco Quit Line: [place], [place]) [address]: [phone] [place], [place]) [address]: [phone] [facility] [address] [facility]. [place], [place]: [phone] [facility] ED Note-Physicianon 11-12-19 ED Note-Physician Chief Complaint Patient complains of throat pain, congestion and headache. History of Present Illness 42-year-old female who has been having a cough congestion headache sore throat. She states the symptoms have been ongoing for 1 day. She also has a spouse who is having similar symptoms. No other significant medical history. No fevers or chills no loss of taste or smell. Physical Exam Physical Examination General: Well appearing, speaking in full sentences Skin: No skin rash Head: Normocephalic/ atraumatic Neck: Supple Eye: EOMI, normal conjunctiva ENT: Moist oral mucosa, nares patent Cardiovascular: RRR, 2+ pulses radial Respiratory: Non labored, clear breath sounds Back: Normal ROM Musculoskeletal: Moves arms and legs and crosses midline Gastrointestinal: non distended Neurological: A&O x 4, no focal neuro deficits Psych: Appropriate behavior, relaxed Vitals & Measurements T: 36.9 ?C (Oral) HR: 83 (Peripheral) RR: 18 BP: 131/79 SpO2: 96% HT: 157.5 cm WT: 86.9 kg (Dosing) Additional Vitals No qualifying data available. Procedure No qualifying data available. ASA Documentation Medical Decision Making 41-year-old female has been having URI symptoms x1 day Patient is hemodynamically stable Her lung exam is normal She is COVID-19 positive Give the patient these results and recommended CDC guidelines we will give her a work note Assessment/Plan 1. COVID-19 2. Cough Refresh vitals and sections below: Problem List/Past Medical History Ongoing Anxiety Depression Low serum potassium level Seasonal nasal allergies Historical No qualifying data Procedure/Surgical History wisdom teeth Medications Inpatient No active inpatient medications Home ARIPiprazole 10 mg oral tablet, 10 mg= 1 tabs, Oral, Daily, Not taking: start 10/21 (after finishing 5 mg) ARIPiprazole 15 mg oral tablet, 15 mg= 1 tabs, Oral, Daily, Not taking: start 11/04 (after finishing 10 mg) ARIPiprazole 20 mg oral tablet, 20 mg= 1 tabs, Oral, Daily, Not taking: start 11/11 (after finishing 15 mg) ARIPiprazole 5 mg oral tablet, 5 mg= 1 tabs, Oral, Daily Latuda 20 mg oral tablet, 20 mg= 1 tabs, Oral, qPM OXcarbazepine 150 mg oral tablet, 150 mg= 1 tabs, Oral, qAM OXcarbazepine 300 mg oral tablet, 300 mg= 1 tabs, Oral, HS (at bedtime) QUEtiapine 25 mg oral tablet, 25 mg= 1 tabs, Oral, HS (at bedtime) sertraline 100 mg oral tablet, 100 mg= 1 tabs, Oral, qAM Allergies No Known Allergies No Known Medication Allergies Social History Alcohol Never Home/Environment Lives with Significant other. Sexual Sexually active: Yes. History of sexual abuse: No. Substance Abuse Denies All Tobacco Never (less than 100 in lifetime) Use:. Family History Cancer of colon: Father. Dementia: Grandfather (M). Diabetes: Grandfather (M). Stroke..: Grandfather (M). Thyroid disease: Mother. Diagnostic Results Electronically signed by Coy Zuñiga MD 11/11/22 01:31 EDT Normal [facility] Flu A&B Ag Rapidon 3 Influenza A Ag Negative Normal Negative [facility] Comment on above: Performed By: #### . Urinalysis Microscopic Auto #### [id number] [place] [address] Influenza B Ag Negative Normal Negative [facility] Comment on above: Result Comment: The [employer] Influenza A+B Card 2 detects both viable and non-viable influenza A and B. Test performance depends on the amount of virus (antigen) in the specimen and may or may not compare with cell culture results performed on the same specimen. A negative test result does not exclude the infection with influenza A and/or B. Therefore, the results obtained with the [employer] Influenza A+B Test should be used in conjunction with clinical findings to make an accurate diagnosis. Additional testing is required to differentiate any specific influenza A+B subtypes or strains, in consultation with state or local public health departments. Performed By: #### . Urinalysis Microscopic Auto #### [address] [address] Respiratory 3 PLEXon 023 Gene-COVID Positive Abnormal Negative [facility] Comment on above: Order Comment: Is th is test for diagnosis or screening?->Diagnosis of ill patient Result Comment: Fact Sheet for HCP: https://www.fda.gov/media/534903/download\X0D0A\X0D0A\Fact Sheet for Patients: https://www.fda.gov/media/970539/download Performed By: #### 3 PLEX #### [place] [address] Ph. [phone] Gene-FLUA Negative Normal Negative [facility] Comment on above: Order Comment: Is th is test for diagnosis or screening?->Diagnosis of ill patient Performed By: #### 3 PLEX #### [address] [place] [address] Ph. [phone] Gene-FLUB Negative Normal Negative [facility] Comment on above: Order Comment: Is th is test for diagnosis or screening?->Diagnosis of ill patient Performed By: #### 3 PLEX #### [address] [address] Ph. [phone] ED Clinical Summaryon 2022 ED Clinical Summary [address] [id number] ED Clinical Summary Person Information Name: Rosangela Lindo Cristy/[facility] Age: 42 Years : 1980 Sex: Female PCP: Da Pierce DO Marital Status: Phone: Race: White Ethnicity: Not or Language: Luxembourger Visit Reason: Lower leg pain-swelling; Foot/Ankle Swelling Acuity: 3 Enc Type: Emergency Med Service: Emergency Medicine Arrival: 11/06/2022 19:29:00 Discharge: 11/06/2022 20:08:00 LOS: 000 00:39 Checkin: 11/06/2022 19:29:00 Checkout: 11/06/2022 20:08:00 Dispo Type: Home or Self Care Address: [address] [place] [phone] Provider Notes: History of Present Illness ? Patient presents with a chief complaint of bilateral lower extremity edema. ?Symptoms have been ongoing for about?1 week. ?She does?work on her feet a lot.? SHe is not on any steroids,?no Norvasc. ?No history of congestive heart failure. Review of Systems Constitutional: [No fevers, chills, sweats] Eye: [No recent visual problems] ENMT: [No ear pain, nasal congestion, sore throat] Respiratory: [No shortness of breath, cough] Cardiovascular: Lower extremity edema Gastrointestinal: [No nausea, vomiting, diarrhea] Genitourinary: [No hematuria] Physical Exam General: [Alert and oriented, well nourished, no acute distress]. Eye: [PERRL, EOMI, normal conjunctiva]. HENT: [Normocephalic, clear tympanic membranes, normal hearing, moist oral mucosa, no scleral icterus, no sinus tenderness]. Neck: [Supple, non-tender, no carotid bruits, no JVD, no lymphadenopathy]. Lungs: [Clear to auscultation and percussion, non-labored respiration]. Heart: [Normal rate, regular rhythm, no murmur, +1 bilateral lower extremity edema Abdomen: [Soft, non-tender, non-distended, normal bowel sounds, no masses]. Musculoskeletal: [Normal range of motion and strength, no tenderness or swelling]. Skin: [Skin is warm, dry and pink, no rashes or lesions]. Neurologic: [Awake, alert, and oriented X3, CN II-XII intact]. Psychiatric: [Cooperative, appropriate mood and affect]. Diagnosis: 1:Lower extremity edema Problems No Problems Documented Smoking Status: Functional Status: Sensory Deficits: History of Falls: Mobility Assistance Prior to Admission: ADLs: Current Level of Assistance for Self-Care/Mobility: Cognitive Status: Allergies No Known Medication Allergies No Known Allergies Laboratory or Other Results This Visit (last charted value for your 11/06/2022 visit) No Laboratory or Other Results This Visit Measurements: Height: Weight: 87.6 kg Blood Pressure: /84 mmHg BMI: Procedures No Procedures Documented Immunizations No Immunizations Documented This Visit Final Med List: Medications that have not changed Other Medications ARIPiprazole (ARIPiprazole 10 mg oral tablet) 1 Tabs Oral (given by mouth) every day for 14 Days. Last Dose: ____ ARIPiprazole (ARIPiprazole 15 mg oral tablet) 1 Tabs Oral (given by mouth) every day for 7 Days. Last Dose: ____ ARIPiprazole (ARIPiprazole 20 mg oral tablet) 1 Tabs Oral (given by mouth) every day for 30 Days. Last Dose: ____ ARIPiprazole (ARIPiprazole 5 mg oral tablet) 1 Tabs Oral (given by mouth) every day for 7 Days. Last Dose: ____ lurasidone (Latuda 20 mg oral tablet) 1 Tabs Oral (given by mouth) once a day (in the evening). evening meal. Last Dose: ____ OXcarbazepine (OXcarbazepine 150 mg oral tablet) 1 Tabs Oral (given by mouth) once a day (in the morning). Last Dose: ____ OXcarbazepine (OXcarbazepine 300 mg oral tablet) 1 Tabs Oral (given by mouth) once a day (at bedtime). Last Dose: ____ QUEtiapine (QUEtiapine 25 mg oral tablet) 1 Tabs Oral (given by mouth) once a day (at bedtime). Last Dose: ____ sertraline (sertraline 100 mg oral tablet) 1 Tabs Oral (given by mouth) once a day (in the morning). Last Dose: ____ Other Medications ARIPiprazole (ARIPiprazole 10 mg oral tablet) 1 Tabs Oral (given by mouth) every day for 14 Days. ARIPiprazole (ARIPiprazole 15 mg oral tablet) 1 Tabs Oral (given by mouth) every day for 7 Days. ARIPiprazole (ARIPiprazole 20 mg oral tablet) 1 Tabs Oral (given by mouth) every day for 30 Days. ARIPiprazole (ARIPiprazole 5 mg oral tablet) 1 Tabs Oral (given by mouth) every day for 7 Days. lurasidone (Latuda 20 mg oral tablet) 1 Tabs Oral (given by mouth) once a day (in the evening). evening meal. OXcarbazepine (OXcarbazepine 150 mg oral tablet) 1 Tabs Oral (given by mouth) once a day (in the morning). OXcarbazepine (OXcarbazepine 300 mg oral tablet) 1 Tabs Oral (given by mouth) once a day (at bedtime). QUEtiapine (QUEtiapine 25 mg oral tablet) 1 Tabs Oral (given by mouth) once a day (at bedtime). sertr (more content not included)... Normal [facility] ED Note-Physicianon 11-07-19 ED Note-Physician Chief Complaint pt came to the ED complaining of bilateral ankle and feet swelling for the past 5 days. History of Present Illness Patient presents with a chief complaint of bilateral lower extremity edema. Symptoms have been ongoing for about 1 week. She does work on her feet a lot. SHe is not on any steroids, no Norvasc. No history of congestive heart failure. Review of Systems Constitutional: [No fevers, chills, sweats] Eye: [No recent visual problems] ENMT: [No ear pain, nasal congestion, sore throat] Respiratory: [No shortness of breath, cough] Cardiovascular: Lower extremity edema Gastrointestinal: [No nausea, vomiting, diarrhea] Genitourinary: [No hematuria] Physical Exam General: [Alert and oriented, well nourished, no acute distress]. Eye: [PERRL, EOMI, normal conjunctiva]. HENT: [Normocephalic, clear tympanic membranes, normal hearing, moist oral mucosa, no scleral icterus, no sinus tenderness]. Neck: [Supple, non-tender, no carotid bruits, no JVD, no lymphadenopathy]. Lungs: [Clear to auscultation and percussion, non-labored respiration]. Heart: [Normal rate, regular rhythm, no murmur, +1 bilateral lower extremity edema Abdomen: [Soft, non-tender, non-distended, normal bowel sounds, no masses]. Musculoskeletal: [Normal range of motion and strength, no tenderness or swelling]. Skin: [Skin is warm, dry and pink, no rashes or lesions]. Neurologic: [Awake, alert, and oriented X3, CN II-XII intact]. Psychiatric: [Cooperative, appropriate mood and affect]. Vitals & Measurements T: 36.6 ?C (Oral) HR: 90 (Peripheral) HR: 90 (Monitored) RR: 18 BP: 132/84 SpO2: 99% HT: 157.5 cm WT: 87.6 kg WT: 87.6 kg (Dosing) Additional Vitals No qualifying data available. Procedure No qualifying data available. ASA Documentation Medical Decision Making Patient presents with a chief complaint of bilateral lower extremity edema. We did offer labs and imaging studies. She has declined, prefers to go home and follow-up with her primary care physician. Assessment/Plan 1. Lower extremity edema Orders: Discharge Patient XR Chest 2 Views Refresh vitals and sections below: Problem List/Past Medical History Ongoing Anxiety Depression Low serum potassium level Seasonal nasal allergies Historical No qualifying data Procedure/Surgical History wisdom teeth Medications Inpatient No active inpatient medications Home ARIPiprazole 10 mg oral tablet, 10 mg= 1 tabs, Oral, Daily, Not taking: start 10/21 (after finishing 5 mg) ARIPiprazole 15 mg oral tablet, 15 mg= 1 tabs, Oral, Daily, Not taking: start 11/04 (after finishing 10 mg) ARIPiprazole 20 mg oral tablet, 20 mg= 1 tabs, Oral, Daily, Not taking: start 11/11 (after finishing 15 mg) ARIPiprazole 5 mg oral tablet, 5 mg= 1 tabs, Oral, Daily Latuda 20 mg oral tablet, 20 mg= 1 tabs, Oral, qPM OXcarbazepine 150 mg oral tablet, 150 mg= 1 tabs, Oral, qAM OXcarbazepine 300 mg oral tablet, 300 mg= 1 tabs, Oral, HS (at bedtime) QUEtiapine 25 mg oral tablet, 25 mg= 1 tabs, Oral, HS (at bedtime) sertraline 100 mg oral tablet, 100 mg= 1 tabs, Oral, qAM Allergies No Known Allergies No Known Medication Allergies Social History Alcohol Never Home/Environment Lives with Significant other. Sexual Sexually active: Yes. History of sexual abuse: No. Substance Abuse Denies All Tobacco Never (less than 100 in lifetime) Use:. Family History Cancer of colon: Father. Dementia: Grandfather (M). Diabetes: Grandfather (M). Stroke..: Grandfather (M). Thyroid disease: Mother. Diagnostic Results Electronically signed by Austin Grey MD 11/06/22 20:06 EDT Normal [facility] ED Clinical Summaryon 2022 ED Clinical Summary [address] [address] ED Clinical Summary Person Information Name: Rosangela Lindo/New_Kwame Age: 42 Years : 1980 Sex: Female PCP: Da Pierce DO Marital Status: Phone: Race: White Ethnicity: Not or Language: Luxembourger Visit Reason: Wrist pain-swelling; Extremity pain Acuity: 4 Enc Type: Emergency Med Service: Emergency Medicine Arrival: 10/29/2022 20:59:26 Discharge: 10/29/2022 22:24:00 LOS: 000 01:25 Checkin: 10/29/2022 20:59:26 Checkout: 10/29/2022 22:24:00 Dispo Type: Left Without Being Seen [address]: [address] [place] [id number] Provider Notes: Diagnosis: Problems No Problems Documented Smoking Status: Smoking Status Never (less than 100 in lifetime) Functional Status: Sensory Deficits: History of Falls: Mobility Assistance Prior to Admission: ADLs: Current Level of Assistance for Self-Care/Mobility: Cognitive Status: Allergies No Known Medication Allergies No Known Allergies Laboratory or Other Results This Visit (last charted value for your 10/29/2022 visit) No Laboratory or Other Results This Visit Measurements: Height: Weight: Blood Pressure: /88 mmHg BMI: Procedures No Procedures Documented Immunizations No Immunizations Documented This Visit Final Med List: Medications that have not changed Other Medications ARIPiprazole (ARIPiprazole 10 mg oral tablet) 1 Tabs Oral (given by mouth) every day for 14 Days. Last Dose: ____ ARIPiprazole (ARIPiprazole 15 mg oral tablet) 1 Tabs Oral (given by mouth) every day for 7 Days. Last Dose: ____ ARIPiprazole (ARIPiprazole 20 mg oral tablet) 1 Tabs Oral (given by mouth) every day for 30 Days. Last Dose: ____ ARIPiprazole (ARIPiprazole 5 mg oral tablet) 1 Tabs Oral (given by mouth) every day for 7 Days. Last Dose: ____ lurasidone (Latuda 20 mg oral tablet) 1 Tabs Oral (given by mouth) once a day (in the evening). evening meal. Last Dose: ____ OXcarbazepine (OXcarbazepine 150 mg oral tablet) 1 Tabs Oral (given by mouth) once a day (in the morning). Last Dose: ____ OXcarbazepine (OXcarbazepine 300 mg oral tablet) 1 Tabs Oral (given by mouth) once a day (at bedtime). Last Dose: ____ QUEtiapine (QUEtiapine 25 mg oral tablet) 1 Tabs Oral (given by mouth) once a day (at bedtime). Last Dose: ____ sertraline (sertraline 100 mg oral tablet) 1 Tabs Oral (given by mouth) once a day (in the morning). Last Dose: ____ Other Medications ARIPiprazole (ARIPiprazole 10 mg oral tablet) 1 Tabs Oral (given by mouth) every day for 14 Days. ARIPiprazole (ARIPiprazole 15 mg oral tablet) 1 Tabs Oral (given by mouth) every day for 7 Days. ARIPiprazole (ARIPiprazole 20 mg oral tablet) 1 Tabs Oral (given by mouth) every day for 30 Days. ARIPiprazole (ARIPiprazole 5 mg oral tablet) 1 Tabs Oral (given by mouth) every day for 7 Days. lurasidone (Latuda 20 mg oral tablet) 1 Tabs Oral (given by mouth) once a day (in the evening). evening meal. OXcarbazepine (OXcarbazepine 150 mg oral tablet) 1 Tabs Oral (given by mouth) once a day (in the morning). OXcarbazepine (OXcarbazepine 300 mg oral tablet) 1 Tabs Oral (given by mouth) once a day (at bedtime). QUEtiapine (QUEtiapine 25 mg oral tablet) 1 Tabs Oral (given by mouth) once a day (at bedtime). sertraline (sertraline 100 mg oral tablet) 1 Tabs Oral (given by mouth) once a day (in the morning). Care Team Members: Attending Physician: Consulting Physician: Referring Physician: Follow up: Discharge Orders: Patient Education Information: [facility] Poison Help line: . [facility] Hotline: [place] Tobacco Quit Line: [place], [place]) [address]: [phone] [place], [place]) [address]: [phone] [facility] [address] [facility]. [place], [place]: [phone] Normal [facility] Auto Diffon 10-28-2022 Basophils/100 WBC (Bld) 0.4 % Normal 0.0-2.0 [facility] Comment on above: Order Comment: Order Added by Discern Expert. Performed By: #### 2 954231, [id number], 69619369, 1919351, 6075922 ####[facility] [address] [place] [address] Basophils/Leukocytes Auto (Bld) [Pure # fraction] 0.0 E9/L Normal 0.0-0.2 [facility] Comment on above: Order Comment: Order Added by Discern Expert. Performed By: #### 2 489811, 33082467, 97270359, 6423673, 0210327 ####[facility] [address] [place] [address] Eosinophils/100 WBC (Bld) 1.6 % Normal 0.0-8.0 [facility] Comment on above: Order Comment: Order Added by Discern Expert. Performed By: #### 2 639885, 36442161, 96230031, 8803061, 4850532 ####[place] [address] [place] [address] Eosinophils/Leukocytes Auto (Bld) [Pure # fraction] 0.1 E9/L Normal 0.0-0.5 [facility] Comment on above: Order Comment: Order Added by Discern Expert. Performed By: #### 2 841103, 70154795, 49581856, 7724038, 1897368 ####[address] [address] Lymphocytes/100 WBC (Bld) 20.8 % Normal 14.0-50.0 [facility] Comment on above: Order Comment: Order Added by Discern Expert. Performed By: #### 2 985208, 71772054, 66681984, 6504647, 9262740 ####[address] [address] Lymphocytes/Leukocytes Auto (Bld) [Pure # fraction] 1.4 E9/L Normal 1.0-4.0 [facility] Comment on above: Order Comment: Order Added by Apple Expert. Performed By: #### 2 952126, 33236805, 86278479, 8766225, 7482178 ####[address] [address] Monocytes/100 WBC (Bld) 7.4 % Normal 4.0-14.0 [facility] Comment on above: Order Comment: Order Added by Discern Expert. Performed By: #### 2 937225, 91199700, 86216218, 6267884, 6095660 ####[address] [address] Monocytes/Leukocytes Auto (Bld) [Pure # fraction] 0.5 E9/L Normal 0.2-1.0 [facility] Comment on above: Order Comment: Order Added by Apple Expert. Performed By: #### 2 820065, 71339365, 05103560, 8027636, 2888085 ####[address] [address] Neutrophils/100 WBC (Bld) 69.8 % Normal 36.0-75.0 [facility] Comment on above: Order Comment: Order Added by Discern Expert. Performed By: #### 2 923585, 52584875, 74455132, 5649394, 4606664 ####[facility] [address] [place] [address] Neutrophils/Leukocytes Auto (Bld) [Pure # fraction] 4.6 E9/L Normal 2.0-7.5 [facility] Comment on above: Order Comment: Order Added by Discern Expert. Performed By: #### 2 890845, 20825665, 68118244, 9293309, 1114824 ####[address] [address] B hCG Qualon 10-28-2022 Beta hCG Ql Negative Normal [facility] Comment on above: Performed By: #### 2 696151, 51783191, 85951369, 3298320, 0409668 ####[address] [address] CBC w/ Auto Diffon Erythrocyte distribution width (RBC) [Ratio] 14.4 % High 10.9-14.2 [facility] Comment on above: Performed By: #### 2 832157, 55076697, 36873642, 1534241, 1641174 ####[address] [address] Hematocrit (Bld) [Volume fraction] 33.7 % Low 34.0-46.0 [facility] Comment on above: Performed By: #### 2 175099, 88168091, 13790607, 1536857, 4516655 ####[address] [address] Hemoglobin (Bld) [Mass/Vol] 11.3 g/dL Low 12.0-16.0 [facility] Comment on above: Performed By: #### 2 989627, 27002340, 62360485, 4223816, 4332297 ####[facility] [address] [place] [address] MCH (RBC) [Entitic mass] 27.4 pg Normal 27.0-34.0 [facility] Comment on above: Performed By: #### 2 054398, 83716483, 52512784, 3315390, 7143415 ####[address] [address] MCHC (RBC) [Mass/Vol] 33.7 g/dL Normal 31.4-36.0 [facility] Comment on above: Performed By: #### 2 596959, 39606830, 75926580, 2292674, 5445973 ####[place] [address] MCV (RBC) [Entitic vol] 81.2 fL Normal 80.0-100.0 [facility] Comment on above: Performed By: #### 2 101487, 30341626, 43462503, 8174752, 8149814 ####[address] [address] Platelet mean volume (Bld) [Entitic vol] 7.1 fL Normal 6.4-10.8 [facility] Comment on above: Performed By: #### 2 421065, 56266815, 89506918, 0976869, 8942647 ####[address] [address] Platelets (Bld) [#/Vol] 349.0 E9/L Normal 150.0-500.0 [facility] Comment on above: Performed By: #### 2 548146, 92305271, 30372991, 3156998, 3183399 ####[address] [address] RBC (Bld) [#/Vol] 4.1 E12/L Low 4.3-5.9 [facility] Comment on above: Performed By: #### 2 371473, 84429698, 06555889, 4021136, 6931125 ####[facility] [address] [place] [address] WBC corrected for nucl RBC Auto (Bld) [#/Vol] 6.6 E9/L Normal 4.0-11.0 [facility] Comment on above: Performed By: #### 2 674638, 27989182, 26871682, 2003025, 2905816 ####[address] [address] CMPon 10-28-2022 Albumin [Mass/Vol] 3.5 g/dL Normal 3.3-5.0 [facility] Comment on above: Performed By: #### 2 522756, 87573200, 97191022, 3761506, 1704380 ####[address] [address] Albumin/Globulin (S) [Mass conc ratio] 1.1 Normal 1.1-2.2 [facility] Comment on above: Performed By: #### 2 365448, 13367713, 94126086, 6673374, 4565989 ####[address] [address] ALP [Catalytic activity/Vol] 71 Int._Unit/L Normal 21-98 [facility] Comment on above: Performed By: #### 2 064921, 55425603, 22598454, 2027274, 1635785 ####[address] [address] ALT No additional P-5'-P [Catalytic activity/Vol] 14 Int._Unit/L Normal 6-46 [facility] Comment on above: Performed By: #### 2 022720, 80361622, 17177855, 3856637, 9674294 ####[place] [place] [address] AST [Catalytic activity/Vol] 16 Int._Unit/L Normal 5-43 [facility] Comment on above: Performed By: #### 2 753688, 15968944, 00207223, 6475201, 4831739 ####[facility] [address] [place] [address] Bilirubin [Mass/Vol] 0.1 mg/dL Normal 0.0-1.1 [facility] Comment on above: Performed By: #### 2 072111, 25483307, 36425178, 0224878, 2029995 ####[facility] [address] [place] [address] Creatinine [Mass/Vol] 0.6 mg/dL Normal 0.5-1.3 [facility] Comment on above: Performed By: #### 2 628479, 91172801, 76660262, 7662796, 0385612 ####[facility] [address] [place] [address] Globulin (S) [Mass/Vol] 3.3 g/dL Normal 1.4-4.0 [facility] Comment on above: Performed By: #### 2 976038, 34046905, 90635732, 0517396, 2306954 ####[facility] [address] [place] [address] Protein [Mass/Vol] 6.8 g/dL Normal 6.0-7.8 [facility] Comment on above: Performed By: #### 2 664204, 76594768, 22094144, 8165998, 7288483 ####[facility] [address] [place] [address] Urea nitrogen [Mass/Vol] 18 mg/dL Normal 5-21 [facility] Comment on above: Performed By: #### 2 388384, 08598393, 12544184, 3312682, 6151334 ####[facility] [address] [place] [address] Urea nitrogen/Creatinine [Mass ratio] 30 No Units High 10-20 [facility] Comment on above: Performed By: #### 2 087981, 58502774, 95670805, 1901308, 2700252 ####[facility] [address] [place] [address] Anion gap [Moles/Vol] 11 mmol/L Normal 6-16 [facility] Comment on above: Performed By: #### 2 313627, 64492417, 05266143, 5683941, 0023834 ####[facility] [address] [place] [address] Calcium [Mass/Vol] 8.5 mg/dL Low 8.9-11.1 [facility] Comment on above: Performed By: #### 2 843991, 39455860, 30334661, 2772983, 1821025 ####[facility] [address] [place] [address] Chloride [Moles/Vol] 104 mmol/L Normal 101-111 [facility] Comment on above: Performed By: #### 2 591449, 05080936, 21655827, 7118709, 7951033 ####[facility] [address] [place] [address] CO2 [Moles/Vol] 23 mmol/L Normal 21-31 [facility] Comment on above: Performed By: #### 2 951052, 45684768, 10897272, 3815486, 4550995 ####[facility] [address] [place] [facility] [place] [address] Glucose [Mass/Vol] 84 mg/dL Normal 55-199 [facility] Comment on above: Result Comment: If t his glucose result represents a fasting glucose, interpretation should refer to the following reference range: 55-99 mg/dL Performed By: #### 2 694636, 78837502, 50054023, 6538636, 7995525 ####[facility] [address] [place] [address] Potassium [Moles/Vol] 3.8 mmol/L Normal 3.5-5.3 [facility] Comment on above: Performed By: #### 2 311911, 70696018, 97812598, 0589543, 4017373 ####[facility] [address] [place] [address] Sodium [Moles/Vol] 134 mmol/L Low 135-145 [facility] Comment on above: Performed By: #### 2 172355, 90034436, 62078994, 2249142, 9592406 ####[facility] [address] [place] [address] Consent for Treatmenton 10-02 Consent for Treatment [id number] .[id number]:127 Normal [facility] Discharge Instructionson Discharge Instructions [id number] .[id number]:127 Normal [facility] ED Clinical Summaryon 2022 ED Clinical Summary Normal [facility] ED Note-Physicianon 10-29-19 ED Note-Physician Normal [facility] Comment on above: Result Comment: Elec tronically Signed By: Grant Dos Santos DO\.br\Date and Time Signed: 10/28/22 08:58 EDT ED Patient Education Noteon 10-28-2022 ED Patient Education Note Normal [facility] ED Patient Summaryon 023 ED Patient Summary Normal [facility] Prescriptions/Work Noteson 0 10-28-2022 Prescriptions/Work Notes [id number] .[id number]:127 Normal [facility] UA With Cult Reflexon 2022 Bacteria LM Ql (Urine sed) TRACE Normal Trace [facility] Comment on above: Performed By: #### 1 9979533 ####[facility] [address] [place] [address] Bilirubin Ql (U) Negative Normal Negative [facility] Comment on above: Performed By: #### 1 9791256 ####[facility] [address] [place] [address] Clarity (U) SL CLOUDY Invalid Interpretation Code [facility] Comment on above: Performed By: #### 1 1168401 ####[facility] [address] [place] [address] Color (U) YELLOW Normal Yellow [facility] Comment on above: Performed By: #### 1 1491772 ####[facility] [address] [place] [address] Crystals LM Ql (Urine sed) Present Normal [facility] Comment on above: Performed By: #### 1 7134167 ####[facility] [address] [place] [address] Epithelial cells.squamous LM.HPF (Urine sed) [#/Area] 3-4 Normal 0-2 [facility] Comment on above: Performed By: #### 1 6202457 ####[facility] [address] [place] [address] Glucose Test strip (U) [Mass/Vol] Negative Normal Negative [facility] Comment on above: Performed By: #### 1 7666600 ####[facility] [address] [place] [address] Hemoglobin Ql (U) Negative Normal Negative [facility] Comment on above: Performed By: #### 1 2434147 ####[facility] [address] [place] [address] Ketones (U) [Mass/Vol] Negative Normal Negative [facility] Comment on above: Performed By: #### 1 2874215 ####[facility] [address] [place] [address] Avoca.plasma/Avoca. RBC (Bld) [Mass ratio] 0-3 Normal 0-3 [facility] Comment on above: Performed By: #### 1 0770618 ####[facility] [address] [place] [address] Mucus Ql (Urine sed) 3+ Normal [facility] Comment on above: Performed By: #### 1 5721658 ####[facility] [address] [place] [address] Nitrite Ql (U) Negative Normal Negative [facility] Comment on above: Performed By: #### 1 7558266 ####[place] [address] [place] [address] pH (U) 6.0 [pH] Invalid Interpretation Code 5.0-9.0 [facility] Comment on above: Performed By: #### 1 4503512 ####[place] [address] Protein (U) [Mass/Vol] Negative Normal Negative [facility] Comment on above: Performed By: #### 1 [id number] ####[place] [id number] Specific gravity (U) [Rel density] >=1.030 Invalid Interpretation Code 1.005-1.030 [facility] Comment on above: Performed By: #### 1 [id number] ####[place] [address] Type of Urine collection method Clean Catch Normal [facility] Comment on above: Performed By: #### 1 [id number] ####[place] [id number] Urobilinogen Qn (U) 0.2 {Sandee'U}/dL Normal 0.0-1.0 [facility] Comment on above: Performed By: #### 1 [id number] ####[place] [id number] WBC Auto Ql (U) Negative Normal Negative [facility] Comment on above: Performed By: #### 1 [id number] ####[place] [id number] WBC LM.HPF (Urine sed) [#/Area] 0-5 Normal 0-5 [facility] Comment on above: Performed By: #### 1 [id number] ####[address] [address] eGFRon 10-28-2022 GFR/1.73 sq M.predicted among non-blacks MDRD (S/P/Bld) [Vol rate/Area] 114 mL/min/1.73 m2 Normal >=59 [facility] Comment on above: Order Comment: Order added by Discern Expert. Result Comment: Report Programmer akbar kidney disease could be indicated at eGFR's of less than 60 mL/min/1.73m2. Kidney failure is indicated at less than 15 mL/min/1.73m2. Performed By: #### 2 [id number], [id number], [id number], [id number], [id number] ####[facility] [id number] [place] [address] Cholesterol [Mass/volume] in Serum or PlasmaOrdered By: Miguelangel Zhou on 10-26-2022 Cholesterol [Mass/Vol] 194 mg/dL 140-200 [facility] Comment on above: Chol less than 200 m g/dl low riskChol 201-239 mg/dl borderline riskChol 240 mg/dl and greater high risk Cholesterol in LDL Calc [Mas s/Vol]Ordered By: Miguelangel Zhou on 10-26-2022 Cholesterol in LDL [Mass/Vol] 138 mg/dL 0-100 [facility] Comment on above: LDL ATP III CLASSIFI CATIONLDL less than 100 mg/dL OptimalLDL 100-129 mg/dL Near or above optimalLDL 130-159 mg/dL Borderline highLDL 160-189 mg/dL HighLDL greater than 189 mg/dL Very high Cholesterol in VLDL Calc [Ma ss/Vol]Ordered By: Miguelangel Zhou on 10-26-2022 Cholesterol in VLDL [Mass/Vol] 17 mg/dL [facility] Lipid Panelon 10-26-2022 Cholesterol [Mass/Vol] 194 mg/dL Normal 140-200 [facility] Comment on above: Result Comment: Chol less than 200 mg/dl low risk Chol 201-239 mg/dl borderline risk Chol 240 mg/dl and greater high risk Performed By: #### T SH3 wRFLX, LIPID, [id number] #### [facility] [address] [place], [place] [address] Cholesterol in HDL [Mass/Vol] 39 mg/dL Normal 23-92 [facility] Comment on above: Result Comment: HDL CHOL ATP-III CLASSIFICATION Cardiovascular Risk HDL > or equal to 60 mg/dL LOW HDL < 40 mg/dL HIGH Performed By: #### T SH3 wRFLX, LIPID, [id number] #### [facility] [address] [place] [address] Cholesterol.total/Audelia sterol in HDL [Mass ratio] 5.0 {ratio} Normal <5.0 [facility] Comment on above: Performed By: #### T SH3 wRFLX, LIPID, [id number] #### [facility] [address] LDL Cholesterol,Calculated 138 mg/dL High 0-100 [facility] Comment on above: Result Comment: LDL ATP III CLASSIFICATION LDL less than 100 mg/dL Optimal LDL 100-129 mg/dL Near or above optimal LDL 130-159 mg/dL Borderline high LDL 160-189 mg/dL High LDL greater than 189 mg/dL Very high Performed By: #### T SH3 wRFLX, LIPID, [id number] #### [address] Triglyceride w/Reflex 85 mg/dL Normal 0-149 [facility] Comment on above: Result Comment: TRIG ATP III CLASSIFICATION TRIG less than 150 mg/dL Normal TRIG 150-199 mg/dL Borderline high TRIG 200-500 mg/dL High TRIG greater than 500 mg/dL Very high Standard traceable to the Center for Disease Conrtrol and Prevention (CDC) test method. Performed By: #### T SH3 wRFLX, LIPID, [id number] #### [address] VLDL CHOLESTEROL 17 mg/dL Normal [facility] Comment on above: Performed By: #### T SH3 wRFLX, LIPID, [id number] #### [address] Serum or plasma high density lipoprotein (HDL) cholesterol measurementOrdered By: Miguelangel Zhou on 10-26-2022 Cholesterol in HDL [Mass/Vol] 39 mg/dL 23-92 [facility] Comment on above: HDL CHOL ATP-III CLA SSIFICATION Cardiovascular RiskHDL > or equal to 60 mg/dL LOWHDL < 40 mg/dL HIGH Serum or plasma total choles terol/high density lipoprotein (HDL) cholesterol mass ratOrdered By: Miguelangel Zhou on 10-26-2022 Cholesterol.total/Audelia sterol in HDL [Mass ratio] 5.0 {ratio} <5.0 [facility] Thyroid Stim Hormone w/Rflxo n 10-26-2022 Thyroid Stim Hormone w/Rflx 1.23 u[iU]/mL Normal 0.45-5.33 [facility] Comment on above: Performed By: #### T SH3 wRFLX, LIPID, [id number] #### [facility] [address] Thyrotropin [Units/volume] i n Serum or PlasmaOrdered By: Miguelangel Zhou on 10-26-2022 TSH Qn 1.23 m[IU]/L 0.45-5.33 [facility] Triglyceride [Mass/volume] i n Serum or PlasmaOrdered By: Miguelangel Zhou on 10-26-2022 Triglyceride [Mass/Vol] 85 mg/dL 0-149 [facility] Comment on above: TRIG ATP III CLASSIF ICATIONTRIG less than 150 mg/dL NormalTRIG 150-199 mg/dL Borderline highTRIG 200-500 mg/dL High TRIG greater than 500 mg/dL Very highStandard traceable to the Center for Disease Conrtrol and Prevention (CDC) test method. Vitamin D 25 Hydroxy Totalon 10-26-2022 Vitamin D 25 Hydroxy Total 20.6 ng/mL Low 30-100 [facility] Comment on above: Result Comment: KIRSTEN MIN D STATUS 25([place])VITAMIN D RANGE (ng/mL) Deficient <20 Insufficient 20 to <30 Sufficient 30 to 100 Reference: Tiago MF,Sarah NC, Neha FARIAS, et al. Evaluation,treatment, and prevention of vitamin D deficiency; an Endocrine Society clinical practice guideline. JCEM. 2010; 96(7):1911-30. PERFORMED BY: [facility] [address] [place] [address] PATHOLOGIST COMMISSARY MANAGER NIRAJ CM M.D. Performed By: #### T SH3 wRFLX, LIPID, [id number] #### [facility] [address] Vitamin D+Metabolites [Mass/ volume] in Serum or PlasmaOrdered By: Miguelangel Zhou on 10-26-2022 Vitamin D+Metabolites [Mass/Vol] 20.6 ng/mL 30-100 [facility] Comment on above: VITAMIN D STATUS 25( [place])VITAMIN D RANGE (ng/mL) Deficient <20 Insufficient 20 to <30Sufficient 30 to 100Reference: Tiago MF,Sarah NC, Neha FARIAS, et al. Evaluation,treatment, and prevention of vitamin D deficiency; an Endocrine Society clinical practice guideline. JCEM. 2010; 96(7):1911-30. ECG 12 lead ECGon 10-25-2022 ECG 12 lead ECG [facility] [address] [place] [address] [place] [address] Electrocardiograph Report Signed Patient: Rosangela Lindo MR#: [id number] : 1980 Acct:[id number] Age/Sex: 42 / F ADM Date: 10/25/22 Loc: Room: [address] [place] [address] Type: DIS IN Attending Dr: Miguelangel Zhou MD Ordering Provider: Miguelangel Zhou MD Date of Service: 10/25/22 ECG/ECG 12 lead ECG: baseline Copies to: Test Reason : Blood Pressure : / mmHG Vent. Rate : 082 BPM Atrial Rate : 082 BPM P-R Int : 164 ms QRS Dur : 088 ms QT Int : 376 ms P-R-T Axes : 056 106 053 degrees QTc Int : 439 ms Normal sinus rhythm Rightward axis Borderline ECG When compared with ECG of 19-JUL-2022 18:29, Minimal criteria for Anterior infarct are no longer present Confirmed by BRAIN NICOLE MD ([id number]) on 10/28/2022 6:47:26 PM Referred By: Electronically Signed By:BRAIN NICOLE MD Transcribed By: MUS Signed By Brain Nicole MD 0 10/28/22 184 Normal [facility] EKG 12-LEADon 10-23-2022 EKG 12-LEAD 83 83 168 84 370 434 46 18 31 Normal sinus rhythm Cannot rule out Anterior infarct (cited on or before 05-AUG-2022) Low voltage QRS, consider pulmonary disease, pericardial effusion, or normal variant Abnormal ECG When compared with ECG of 05-AUG-2022 10:28, No significant change was found Confirmed by ALBANIA ANNE MD ([id number]) on 10/23/2022 11:51:53 PM [email or web address] [email or web address]&Date=23-10-2022&Ti me=[id number]& TestType=ECG&Site=3&O utputType=PDF&Ext=PDF Normal [facility] ED Clinical Summaryon 2022 ED Clinical Summary [address] [address] ED Clinical Summary Person Information Name: Rosangela Lindo/[facility] Age: 42 Years : 1980 Sex: Female PCP: Da Pierce DO Marital Status: Phone: Race: White Ethnicity: Not or Language: Luxembourger Visit Reason: Wrist pain-swelling; Shoulder pain-swelling; wrist pain Acuity: 3 Enc Type: Emergency Med Service: Emergency Medicine Arrival: 10/21/2022 19:50:00 Discharge: 10/21/2022 20:29:00 LOS: 000 00:39 Checkin: 10/21/2022 19:50:00 Checkout: 10/21/2022 20:29:00 Dispo Type: Home or Self Care Address: [address] [place] [phone] Provider Notes: Diagnosis: 1:Right wrist sprain Problems No Problems Documented Smoking Status: Functional Status: Sensory Deficits: History of Falls: Mobility Assistance Prior to Admission: ADLs: Current Level of Assistance for Self-Care/Mobility: Cognitive Status: Allergies No Known Medication Allergies No Known Allergies Laboratory or Other Results This Visit (last charted value for your 10/21/2022 visit) No Laboratory or Other Results This Visit Measurements: Height: Weight: 83.6 kg Blood Pressure: /86 mmHg BMI: Procedures No Procedures Documented Immunizations No Immunizations Documented This Visit Final Med List: Medications that have not changed Other Medications ARIPiprazole (ARIPiprazole 10 mg oral tablet) 1 Tabs Oral (given by mouth) every day for 14 Days. Last Dose: ____ ARIPiprazole (ARIPiprazole 15 mg oral tablet) 1 Tabs Oral (given by mouth) every day for 7 Days. Last Dose: ____ ARIPiprazole (ARIPiprazole 20 mg oral tablet) 1 Tabs Oral (given by mouth) every day for 30 Days. Last Dose: ____ ARIPiprazole (ARIPiprazole 5 mg oral tablet) 1 Tabs Oral (given by mouth) every day for 7 Days. Last Dose: ____ lurasidone (Latuda 20 mg oral tablet) 1 Tabs Oral (given by mouth) once a day (in the evening). evening meal. Last Dose: ____ OXcarbazepine (OXcarbazepine 150 mg oral tablet) 1 Tabs Oral (given by mouth) once a day (in the morning). Last Dose: ____ OXcarbazepine (OXcarbazepine 300 mg oral tablet) 1 Tabs Oral (given by mouth) once a day (at bedtime). Last Dose: ____ QUEtiapine (QUEtiapine 25 mg oral tablet) 1 Tabs Oral (given by mouth) once a day (at bedtime). Last Dose: ____ sertraline (sertraline 100 mg oral tablet) 1 Tabs Oral (given by mouth) once a day (in the morning). Last Dose: ____ Other Medications ARIPiprazole (ARIPiprazole 10 mg oral tablet) 1 Tabs Oral (given by mouth) every day for 14 Days. ARIPiprazole (ARIPiprazole 15 mg oral tablet) 1 Tabs Oral (given by mouth) every day for 7 Days. ARIPiprazole (ARIPiprazole 20 mg oral tablet) 1 Tabs Oral (given by mouth) every day for 30 Days. ARIPiprazole (ARIPiprazole 5 mg oral tablet) 1 Tabs Oral (given by mouth) every day for 7 Days. lurasidone (Latuda 20 mg oral tablet) 1 Tabs Oral (given by mouth) once a day (in the evening). evening meal. OXcarbazepine (OXcarbazepine 150 mg oral tablet) 1 Tabs Oral (given by mouth) once a day (in the morning). OXcarbazepine (OXcarbazepine 300 mg oral tablet) 1 Tabs Oral (given by mouth) once a day (at bedtime). QUEtiapine (QUEtiapine 25 mg oral tablet) 1 Tabs Oral (given by mouth) once a day (at bedtime). sertraline (sertraline 100 mg oral tablet) 1 Tabs Oral (given by mouth) once a day (in the morning). Care Team Members: Attending Physician: Ofelia Leigh MD Consulting Physician: Referring Physician: Provider Role Assigned Unassigned Ofelia Leigh MD ED Provider 10/21/2022 20:03:56 Malissa Guerrero ED Nurse 10/21/2022 20:05:53 Follow up: With: Address: When: [address] [address] [phone] Business (1) , only if needed Patient Education Information: Wrist Sprain [facility] Poison Help line: . [facility] Health Hotline: [place] Tobacco Quit Line: [place], [place]) [address]: [phone] [place], [place]) [address]: [phone] [facility] [address] [facility]. [place], [place]: [phone] [facility] ED Note-Physicianon 10-22-19 ED Note-Physician Chief Complaint Pt recieved a flu vaccine on friday, pt states their left shoulder is tender and sore from the shot. Pt fell in august on their right wrist. Pt is experiencing pain in that wrist today as well History of Present Illness Ms. Rosangela Lindo is a 42 years old lady who presented to the ER stating that she is having pain in her right wrist. The patient's condition has been going on since 5 days ago when she fell down and supported her fall with her right hand. The patient was seen in the ER in [place] 3 days ago where she had an x-ray of the right wrist and it came back not showing any acute pathology. The patient decided to come today again to recheck her wrist because the pain is not getting any better. The patient also stated that 2 days ago she had flu vaccine injection in her left shoulder which is still sore today and she wants it to be checked. Review of Systems Constitutional: No Fever. Cardiovascular: No Chest Pain or Palpitations. Respiratory: No Shortness of Breath, Cough or Wheeze. GI: No Vomiting, No Diarrhea, No Abdominal Pain. All other systems reviewed and are negative. Physical Exam Vital signs were reviewed. Nurse's notes were reviewed and I agree with what was documented. CONSTITUTIONAL: Well appearing in no acute distress. SKIN: Warm, dry, and intact without rash. EYES: Extraocular movements are grossly intact, clear conjunctiva, pupils equal round reactive to light. HENT: Normocephalic, atraumatic. NECK: Normal range of motion. PULMONARY: Breathing comfortably. CARDIOVASCULAR: Normal heart rate. NEUROLOGIC: Alert, awake, and oriented ?3, normal speech, moves all extremities with normal strength, normal coordination and balance. MUSCULOSKELETAL: No gross deformities, minimal tenderness to palpation and range of motion at the right wrist, no signs of inflammation on the left shoulder. PSYCHIATRIC: Normal mood and affect. Vitals & Measurements T: 36.8 ?C (Oral) HR: 99 (Peripheral) RR: 20 BP: 126/86 SpO2: 99% HT: 157.5 cm WT: 83.6 kg WT: 83.6 kg (Dosing) Additional Vitals No qualifying data available. Procedure No qualifying data available. ASA Documentation Medical Decision Making The patient was seen and examined by myself at the bedside. The x-ray was reviewed. The patient was reassured after that the patient was sent home with instructions for wrist sprain. The patient was advised to follow-up with her primary care provider in 1 to 2 weeks as needed. Assessment/Plan 1. Right wrist sprain Refresh vitals and sections below: Problem List/Past Medical History Ongoing Anxiety Depression Low serum potassium level Seasonal nasal allergies Historical No qualifying data Procedure/Surgical History wisdom teeth Medications Inpatient No active inpatient medications Home ARIPiprazole 10 mg oral tablet, 10 mg= 1 tabs, Oral, Daily, Not taking: start 10/21 (after finishing 5 mg) ARIPiprazole 15 mg oral tablet, 15 mg= 1 tabs, Oral, Daily, Not taking: start 11/04 (after finishing 10 mg) ARIPiprazole 20 mg oral tablet, 20 mg= 1 tabs, Oral, Daily, Not taking: start 11/11 (after finishing 15 mg) ARIPiprazole 5 mg oral tablet, 5 mg= 1 tabs, Oral, Daily Latuda 20 mg oral tablet, 20 mg= 1 tabs, Oral, qPM OXcarbazepine 150 mg oral tablet, 150 mg= 1 tabs, Oral, qAM OXcarbazepine 300 mg oral tablet, 300 mg= 1 tabs, Oral, HS (at bedtime) QUEtiapine 25 mg oral tablet, 25 mg= 1 tabs, Oral, HS (at bedtime) sertraline 100 mg oral tablet, 100 mg= 1 tabs, Oral, qAM Allergies No Known Allergies No Known Medication Allergies Social History Alcohol Never Home/Environment Lives with Significant other. Sexual Sexually active: Yes. History of sexual abuse: No. Substance Abuse Denies All Tobacco Never (less than 100 in lifetime) Use:. Family History Cancer of colon: Father. Dementia: Grandfather (M). Diabetes: Grandfather (M). Stroke..: Grandfather (M). Thyroid disease: Mother. Diagnostic Results Electronically signed by Ofelia Leigh MD 10/27/22 07:20 EDT Normal [facility] ED Clinical Summaryon 2022 ED Clinical Summary [place] [id number] [place] [address] ED Clinical Summary Person Information Name: Rosangela Lindo Cristy/[facility] Age: 42 Years : 1980 Sex: Female PCP: Da Pierce DO Marital Status: Phone: Race: White Ethnicity: Not or Language: Luxembourger Visit Reason: Wrist pain-swelling; Psychiatric screening exam; psych Acuity: 2 Enc Type: Emergency Med Service: Emergency Medicine Arrival: 10/18/2022 11:27:15 Discharge: 10/18/2022 13:57:00 LOS: 000 02:30 Checkin: 10/18/2022 11:27:15 Checkout: 10/18/2022 13:57:00 Dispo Type: Home or Self Care Address: [address] [place] [address] [phone] Provider Notes: History of Present Illness This is a?42-year-old female who presents today chief complaint of?2 things. ?The first is that she fell on outstretched hand. ?This was 2 days ago. ?Patient states she is having pain in her wrist diffusely. ?She has no snuffbox tenderness to complaint of. ?Patient is otherwise alert, oriented, appropriate distal pulse motor or sensory function intact. ?Patient otherwise stable. ? Plan is that of depressive symptomatology. ?Patient states she has a history of depression and anxiety both. ?Patient states she is linked with?a center and?walk [place].? Patient states?that she is otherwise?here today for assistance with mental health screening.? Patient states this is similar to her other previous visits here.? Patient states she denies any suicidal hot?or homicidal ideation. Review of Systems Ten pertinent systems reviewed and are negative other than stated in the HPI. ? Nursing notes reviewed. Past medical, surgical, family and social history as well as medication reconciliation as noted by the nursing staff at time of documentation is noted other than stated above in the history of present illness Physical Exam CONSTITUTIONAL: [well appearing in no acute distress] SKIN: [Warm, dry, and intact without rash] EYES: [extraocular movements are grossly intact, clear conjunctiva] HENT: [Normocephalic, atraumatic, moist mucus membranes] NECK: [no obvious swelling, normal range of motion] PULMONARY: [normal chest rise and fall, no respiratory distress or stridor CARDIOVASCULAR: [regular rate, distal extremities are warm and well perfused] GASTROINSTESTINAL: [nondistended, non-tender] GENITOURINARY: [deferred] NEUROLOGIC: [normal speech, moves all extremities] MUSCULOSKELETAL: [no gross deformities, atraumatic] PSYCHIATRIC: [normal mood and affect] Diagnosis: Adjustment disorder; Wrist injury Problems No Problems Documented Smoking Status: Smoking Status Never (less than 100 in lifetime) Functional Status: Sensory Deficits: History of Falls: Mobility Assistance Prior to Admission: ADLs: Current Level of Assistance for Self-Care/Mobility: Cognitive Status: Allergies No Known Medication Allergies No Known Allergies Laboratory or Other Results This Visit (last charted value for your 10/18/2022 visit) Diagnostic Radiology 10/18/2022 12:12 PM XR Wrist 3 or More Views Right: XR Wrist 3 or More Views Right Measurements: Height: Weight: 83.6 kg Blood Pressure: /90 mmHg BMI: Procedures No Procedures Documented Immunizations No Immunizations Documented This Visit Final Med List: Medications that have not changed Other Medications ARIPiprazole (ARIPiprazole 10 mg oral tablet) 1 Tabs Oral (given by mouth) every day for 14 Days. Last Dose: ____ ARIPiprazole (ARIPiprazole 15 mg oral tablet) 1 Tabs Oral (given by mouth) every day for 7 Days. Last Dose: ____ ARIPiprazole (ARIPiprazole 20 mg oral tablet) 1 Tabs Oral (given by mouth) every day for 30 Days. Last Dose: ____ ARIPiprazole (ARIPiprazole 5 mg oral tablet) 1 Tabs Oral (given by mouth) every day for 7 Days. Last Dose: ____ lurasidone (Latuda 20 mg oral tablet) 1 Tabs Oral (given by mouth) once a day (in the evening). evening meal. Last Dose: ____ OXcarbazepine (OXcarbazepine 150 mg oral tablet) 1 Tabs Oral (given by mouth) once a day (in the morning). Last Dose: ____ OXcarbazepine (OXcarbazepine 300 mg oral tablet) 1 Tabs Oral (given by mouth) once a day (at bedtime). Last Dose: ____ QUEtiapine (QUEtiapine 25 mg oral tablet) 1 Tabs Oral (given by mouth) once a day (at bedtime). Last Dose: ____ sertraline (sertraline 100 mg oral tablet) 1 Tabs Oral (given by mouth) once a day (in the morning). Last Dose: ____ Other Medications ARIPiprazole (ARIPiprazole 10 mg oral tablet) 1 Tabs Oral (given by mouth) every day for 14 Days. ARIPiprazole (ARIPiprazole 15 mg oral tablet) 1 Tabs Oral (given by mouth) every day for 7 Days. ARIPiprazole (ARIPiprazole 20 mg oral tablet) 1 Tabs Oral (given by mouth) every (more content not included)... Normal [facility] ED Note-Physicianon 10-19-19 ED Note-Physician Chief Complaint I had a really bad weekend and was really close to doing something bad. Patient reports she wants to be seen for psych eval. Denies any SI/HI at this time. Would also like to have right wrist assessed for injury. History of Present Illness This is a 42-year-old female who presents today chief complaint of 2 things. The first is that she fell on outstretched hand. This was 2 days ago. Patient states she is having pain in her wrist diffusely. She has no snuffbox tenderness to complaint of. Patient is otherwise alert, oriented, appropriate distal pulse motor or sensory function intact. Patient otherwise stable. Plan is that of depressive symptomatology. Patient states she has a history of depression and anxiety both. Patient states she is linked with a center and walk [place]. Patient states that she is otherwise here today for assistance with mental health screening. Patient states this is similar to her other previous visits here. Patient states she denies any suicidal hot or homicidal ideation. Review of Systems Ten pertinent systems reviewed and are negative other than stated in the HPI. Nursing notes reviewed. Past medical, surgical, family and social history as well as medication reconciliation as noted by the nursing staff at time of documentation is noted other than stated above in the history of present illness Physical Exam CONSTITUTIONAL: [well appearing in no acute distress] SKIN: [Warm, dry, and intact without rash] EYES: [extraocular movements are grossly intact, clear conjunctiva] HENT: [Normocephalic, atraumatic, moist mucus membranes] NECK: [no obvious swelling, normal range of motion] PULMONARY: [normal chest rise and fall, no respiratory distress or stridor CARDIOVASCULAR: [regular rate, distal extremities are warm and well perfused] GASTROINSTESTINAL: [nondistended, non-tender] GENITOURINARY: [deferred] NEUROLOGIC: [normal speech, moves all extremities] MUSCULOSKELETAL: [no gross deformities, atraumatic] PSYCHIATRIC: [normal mood and affect] Vitals & Measurements T: 36.8 ?C (Oral) HR: 102 (Peripheral) RR: 18 BP: 118/83 SpO2: 96% HT: 158 cm WT: 83.6 kg (Dosing) Additional Vitals No qualifying data available. Procedure No qualifying data available. ASA Documentation Medical Decision Making Evaluation yields a negative x-ray of the wrist. The wrist was placed in resplint. I evaluate the wrist postplacement of the resplint by the nursing staff. It is possible sensory function intact postplacement. Patient also has a detailed discussion with both the psychiatric prescreener center staff here. At this point due to secondary multiple visits for mental screenings and evaluation with no plans no homicidal ideation no suicidal ideation patient is given resources here. The patient is told to follow-up with relinked services in [facility] and reiterated the fact that she needs to be compliant with her medications. At this point patient is discharged home in stable condition Assessment/Plan Adjustment disorder Psychiatric screening exam (Complaint of) Wrist injury Wrist pain-swelling (Complaint of) Orders: [facility]zier Wrist Splint Refresh vitals and sections below: Problem List/Past Medical History Ongoing Anxiety Depression Low serum potassium level Seasonal nasal allergies Historical No qualifying data Procedure/Surgical History wisdom teeth Medications Inpatient No active inpatient medications Home ARIPiprazole 10 mg oral tablet, 10 mg= 1 tabs, Oral, Daily, Not taking: start 10/21 (after finishing 5 mg) ARIPiprazole 15 mg oral tablet, 15 mg= 1 tabs, Oral, Daily, Not taking: start 11/04 (after finishing 10 mg) ARIPiprazole 20 mg oral tablet, 20 mg= 1 tabs, Oral, Daily, Not taking: start 11/11 (after finishing 15 mg) ARIPiprazole 5 mg oral tablet, 5 mg= 1 tabs, Oral, Daily Latuda 20 mg oral tablet, 20 mg= 1 tabs, Oral, qPM OXcarbazepine 150 mg oral tablet, 150 mg= 1 tabs, Oral, qAM OXcarbazepine 300 mg oral tablet, 300 mg= 1 tabs, Oral, HS (at bedtime) QUEtiapine 25 mg oral tablet, 25 mg= 1 tabs, Oral, HS (at bedtime) sertraline 100 mg oral tablet, 100 mg= 1 tabs, Oral, qAM Allergies No Known Allergies No Known Medication Allergies Social History Alcohol Never Home/Environment Lives with Significant other. Sexual Sexually active: Yes. History of sexual abuse: No. Substance Abuse Denies All Tobacco Never (less than 100 in lifetime) Use:. Family History Cancer of colon: Father. Dementia: Grandfather (M). Diabetes: Grandfather (M). Stroke..: Grandfather (M). Thyroid disease: Mother. Diagnostic Results XRay XR Wrist 3 or More Views Right 10/18/22 12:58:54 IMPRESSION: Normal right wrist radiographs. Signed By: Ronny MARAVILLA, Arnol Self Electronically signed by Dom Mcmahon II, DO 10/18/22 13:30 EDT Normal [facility] ED Note-Physicianon 10-16-19 ED Note-Physician Normal [facility] Comment on above: Result Comment: Elec tronically Signed By: Shaylee DILLONDavid\.br\Date and Time Signed: 10/14/22 08:35 EDT\.br\Electronically Co-Signed By: rGant Dos Santos DO\.br\Date and Time Co-Signed: 10/15/22 07:12 EDT Progress Note-Nurseon 2022 Progress Note-Nurse Normal Fishabrahan r [facility] Auto Diffon 10-14-2022 Basophils/100 WBC (Bld) 0.7 % Normal 0.0-2.0 [facility] Comment on above: Order Comment: Order Added by Discern Expert. Performed By: #### 2 670075, 4046113, 11513204, 7906270 ####[facility] [address] [place] [address] Basophils/Leukocytes Auto (Bld) [Pure # fraction] 0.0 E9/L Normal 0.0-0.2 [facility] Comment on above: Order Comment: Order Added by Discern Expert. Performed By: #### 2 211707, 1680875, [id number], 9291656 ####[facility] [address] [place] [address] Eosinophils/100 WBC (Bld) 1.1 % Normal 0.0-8.0 [facility] Comment on above: Order Comment: Order Added by Discern Expert. Performed By: #### 2 872467, 7281418, 50099518, 0483298 ####[address] [place] [address] Eosinophils/Leukocytes Auto (Bld) [Pure # fraction] 0.1 E9/L Normal 0.0-0.5 [facility] Comment on above: Order Comment: Order Added by Discern Expert. Performed By: #### 2 600895, 1402139, 19791534, 2575305 ####[facility] [address] [place] [address] Lymphocytes/100 WBC (Bld) 32.3 % Normal 14.0-50.0 [facility] Comment on above: Order Comment: Order Added by Discern Expert. Performed By: #### 2 631785, 0851593, 48472230, 0063992 ####[address] [place] [address] Lymphocytes/Leukocytes Auto (Bld) [Pure # fraction] 1.8 E9/L Normal 1.0-4.0 [facility] Comment on above: Order Comment: Order Added by Discern Expert. Performed By: #### 2 982122, 0191436, 15976058, 4649736 ####[address] [address] Monocytes/100 WBC (Bld) 7.7 % Normal 4.0-14.0 [facility] Comment on above: Order Comment: Order Added by Discern Expert. Performed By: #### 2 540894, 3062737, 25514554, 5605013 ####[address] [address] Monocytes/Leukocytes Auto (Bld) [Pure # fraction] 0.4 E9/L Normal 0.2-1.0 [facility] Comment on above: Order Comment: Order Added by Discern Expert. Performed By: #### 2 457329, 9916286, 22455482, 5613429 ####[address] [address] Neutrophils/100 WBC (Bld) 58.2 % Normal 36.0-75.0 [facility] Comment on above: Order Comment: Order Added by Discern Expert. Performed By: #### 2 371047, 5702481, 54618175, 5286403 ####[address] [address] Neutrophils/Leukocytes Auto (Bld) [Pure # fraction] 3.2 E9/L Normal 2.0-7.5 [facility] Comment on above: Order Comment: Order Added by Discern Expert. Performed By: #### 2 511382, 9485207, 62487361, 3208205 ####[address] [address] CBC w/ Auto Diffon 3 Erythrocyte distribution width (RBC) [Ratio] 14.9 % High 10.9-14.2 [facility] Comment on above: Performed By: #### 2 701191, 1428164, 83632422, 0537384 ####[facility] [address] [place] [address] Hematocrit (Bld) [Volume fraction] 35.0 % Normal 34.0-46.0 [facility] Comment on above: Performed By: #### 2 547193, 6228355, 30410120, 5718664 ####[facility] [address] [place] [address] Hemoglobin (Bld) [Mass/Vol] 11.8 g/dL Low 12.0-16.0 [facility] Comment on above: Performed By: #### 2 698405, 8480031, 78191283, 3337843 ####[address] [address] MCH (RBC) [Entitic mass] 27.3 pg Normal 27.0-34.0 [facility] Comment on above: Performed By: #### 2 993943, 7646294, 09891921, 2341283 ####[address] [address] MCHC (RBC) [Mass/Vol] 33.8 g/dL Normal 31.4-36.0 [facility] Comment on above: Performed By: #### 2 584854, 5179282, 14275817, 2618377 ####[address] [address] MCV (RBC) [Entitic vol] 80.7 fL Normal 80.0-100.0 [facility] Comment on above: Performed By: #### 2 482172, 7679543, 06719243, 2924612 ####[address] [address] Platelet mean volume (Bld) [Entitic vol] 7.3 fL Normal 6.4-10.8 [facility] Comment on above: Performed By: #### 2 165389, 3983123, 37981240, 9373637 ####[facility] [address] [place] [address] Platelets (Bld) [#/Vol] 372.0 E9/L Normal 150.0-500.0 [facility] Comment on above: Performed By: #### 2 520493, 6349993, 59625276, 6718078 ####[facility] [address] [place] [address] RBC (Bld) [#/Vol] 4.3 E12/L Normal 4.3-5.9 [facility] Comment on above: Performed By: #### 2 041902, 8851775, 12207570, 6854845 ####[facility] [address] [place] [address] WBC corrected for nucl RBC Auto (Bld) [#/Vol] 5.5 E9/L Normal 4.0-11.0 [facility] Comment on above: Performed By: #### 2 400640, 5600719, 08827392, 3994104 ####[facility] [address] [place] [address] CHEMISTRYOrdered By: SYSTEM SYSTEM on 10-14-2022 Albumin [Mass/Vol] 3.5 g/dL Normal 3.3 - 5.0 gm/dL [facility] Albumin/Globulin [Mass ratio] 1.0 {ratio} Low 1.1 - 2.2 [facility] ALP [Catalytic activity/Vol] 64 [iU]/d Normal 21 - 98 Int._Unit/L [facility] ALT No additional P-5'-P [Catalytic activity/Vol] 15 [iU]/d Normal 6 - 46 Int._Unit/L [facility] Anion gap [Moles/Vol] 11 mmol/L Normal 6 - 16 mEq/L [facility] AST [Catalytic activity/Vol] 20 [iU]/d Normal 5 - 43 Int._Unit/L [facility] Bilirubin [Mass/Vol] 0.4 mg/dL Normal 0.0 - 1 .1 mg/dL [facility] Calcium [Mass/Vol] 8.9 mg/dL Normal 8.9 - 11. 1 mg/dL [facility] Chloride [Moles/Vol] 107 mmol/L Normal 101 - 1 11 mmol/L [facility] CO2 [Moles/Vol] 22 mmol/L Normal 21 - 31 mmol/L [facility] Creatinine [Mass/Vol] 0.6 mg/dL Normal 0.5 - 1.3 mg/dL [facility] Ethanol [Mass/Vol] mg/dL Normal <=7mg/dL [facility] emisol GFR/1.73 sq M.predicted among non-blacks MDRD (S/P/Bld) [Vol rate/Area] 114 mL/min/1.73 m2 Normal >=59mL/min/ 1.73 m2 [facility] Chem S Globulin (S) [Mass/Vol] 3.4 g/dL Normal 1.4 - 4.0 gm/dL [facility] Glucose [Mass/Vol] 97 mg/dL Normal 55 - 199 mg/dL [facility] Potassium [Moles/Vol] 3.6 mmol/L Normal 3.5 - 5.3 mmol/L [facility] Protein [Mass/Vol] 6.9 g/dL Normal 6.0 - 7.8 gm/dL [facility] Sodium [Moles/Vol] 136 mmol/L Normal 135 - 145 mmol/L [facility] Urea nitrogen [Mass/Vol] 10 mg/dL Normal 5 - 21 mg/dL [facility] Urea nitrogen/Creatinine [Mass ratio] 17 mg/mg Normal 10 - 20 [facility] Amphetamines Screen method >1000 ng/mL Ql (U) Negative (10/14/22 7:20 AM) Normal Negative [facility] Barbiturates Screen Ql (U) Negative (10/14/22 7:20 AM) Normal Negative [facility] Benzodiazepines Ql (U) Negative (10/14/22 7:20 AM) Normal Negative [facility] Cocaine Ql (U) Negative (10/14/22 7:20 AM) Normal Negative [facility] Opiates Screen Ql (U) Negative (10/14/22 7:20 AM) Normal Negative [facility] Phencyclidine Screen method >25 ng/mL Ql (U) Negative (10/14/22 7:20 AM) Normal Negative [facility] Tetrahydrocannabinol Screen method >50 ng/mL Ql (U) Negative (10/14/22 7:20 AM) Normal Negative [facility] CMPon 10-14-2022 Albumin [Mass/Vol] 3.5 g/dL Normal 3.3-5.0 [facility] Comment on above: Performed By: #### 2 972826, 8470131, 59665246, 5182240 ####[facility] [address] [place] [address] Albumin/Globulin (S) [Mass conc ratio] 1.0 Low 1.1-2.2 [facility] Comment on above: Performed By: #### 2 289405, 8284321, 22432208, 2087584 ####[address] [place] [address] ALP [Catalytic activity/Vol] 64 Int._Unit/L Normal 21-98 [facility] Comment on above: Performed By: #### 2 509485, 1163452, 15178224, 6419975 ####[address] [place] [address] ALT No additional P-5'-P [Catalytic activity/Vol] 15 Int._Unit/L Normal 6-46 [facility] Comment on above: Performed By: #### 2 046337, 2198816, 45314518, 5723649 ####[facility] [address] [place] [address] AST [Catalytic activity/Vol] 20 Int._Unit/L Normal 5-43 [facility] Comment on above: Performed By: #### 2 014232, 7549822, 26432150, 1843105 ####[facility] [address] [place] [address] Bilirubin [Mass/Vol] 0.4 mg/dL Normal 0.0-1.1 [facility] Comment on above: Performed By: #### 2 875929, 4790186, 61318101, 3953674 ####[facility] [address] [place] [address] Creatinine [Mass/Vol] 0.6 mg/dL Normal 0.5-1.3 [facility] Comment on above: Performed By: #### 2 527396, 3521527, 25722934, 7255392 ####[facility] [address] [place] [address] Globulin (S) [Mass/Vol] 3.4 g/dL Normal 1.4-4.0 [facility] Comment on above: Performed By: #### 2 543925, 3635115, 96092580, 0099367 ####[facility] [address] [place] [address] Protein [Mass/Vol] 6.9 g/dL Normal 6.0-7.8 [facility] Comment on above: Performed By: #### 2 670004, 9002509, 13964768, 3671724 ####[facility] [address] [place] [address] Urea nitrogen [Mass/Vol] 10 mg/dL Normal 5-21 [facility] Comment on above: Performed By: #### 2 381268, 1770003, 88834401, 1092674 ####[facility] [address] [place] [address] Urea nitrogen/Creatinine [Mass ratio] 17 No Units Normal 10-20 [facility] Comment on above: Performed By: #### 2 891722, 8263850, 88750016, 7364741 ####[facility] [address] [place] [address] Anion gap [Moles/Vol] 11 mmol/L Normal 6-16 [facility] Comment on above: Performed By: #### 2 525234, 6196857, 69983180, 7243937 ####[facility] [address] [place] [address] Calcium [Mass/Vol] 8.9 mg/dL Normal 8.9-11.1 [facility] Comment on above: Performed By: #### 2 099950, 2520617, 03615344, 4467370 ####[facility] [address] [place] [address] Chloride [Moles/Vol] 107 mmol/L Normal 101-111 [facility] Comment on above: Performed By: #### 2 448483, 7267411, 77710053, 6097026 ####[facility] [address] [place] [address] CO2 [Moles/Vol] 22 mmol/L Normal 21-31 [facility] Comment on above: Performed By: #### 2 542426, 2215149, 70956317, 8917924 ####[facility] [address] [place] [address] Glucose [Mass/Vol] 97 mg/dL Normal 55-199 [facility] Comment on above: Result Comment: If t his glucose result represents a fasting glucose, interpretation should refer to the following reference range: 55-99 mg/dL Performed By: #### 2 175721, 0775170, 69698509, 6884836 ####[facility] [address] [place] [address] Potassium [Moles/Vol] 3.6 mmol/L Normal 3.5-5.3 [facility] Comment on above: Performed By: #### 2 247448, 0571434, 47432788, 5702374 ####[facility] [address] [place] [address] Sodium [Moles/Vol] 136 mmol/L Normal 135-145 [facility] Comment on above: Performed By: #### 2 348612, 2648201, 89502937, 3926838 ####[facility] [address] [place] [address] Consent for Treatmenton 10-01 Consent for Treatment [id number] [facility] [id number]:127 Normal [facility] Discharge Instructionson Discharge Instructions [id number]:127 Normal [facility] ED Clinical Summaryon 2022 ED Clinical Summary Normal Guru hassan [facility] ED Patient Education Noteon 10-14-2022 ED Patient Education Note Normal [facility] ED Patient Summaryon 023 ED Patient Summary Normal [facility] Ethanolon 10-14-2022 Ethanol [Mass/Vol] mg/dL Normal <=7 [facility] Comment on above: Performed By: #### 2 810472 ####[facility] [address] [place] [address] HEMATOLOGYOrdered By: SYSTEM SYSTEM on 10-14-2022 Basophils/100 WBC (Bld) 0.7 % Normal 0.0 - 2.0 % [facility] HemeAutoSS Basophils/Leukocytes Auto (Bld) [Pure # fraction] 0.0 E9/L Normal 0.0 - 0.2 E9/L [facility] HemeAutoSS Eosinophils/100 WBC (Bld) 1.1 % Normal 0.0 - 8.0 % [facility] HemeAutoSS Eosinophils/Leukocytes Auto (Bld) [Pure # fraction] 0.1 E9/L Normal 0.0 - 0.5 E9/L [facility] HemeAutoSS Lymphocytes/100 WBC (Bld) 32.3 % Normal 14.0 - 50.0 % [facility] HemeAutoSS Lymphocytes/Leukocytes Auto (Bld) [Pure # fraction] 1.8 E9/L Normal 1.0 - 4.0 E9/L [facility] HemeAutoSS Monocytes/100 WBC (Bld) 7.7 % Normal 4.0 - 14.0 % [facility] HemeAutoSS Monocytes/Leukocytes Auto (Bld) [Pure # fraction] 0.4 E9/L Normal 0.2 - 1.0 E9/L [facility] HemeAutoSS Neutrophils/100 WBC (Bld) 58.2 % Normal 36.0 - 75.0 % [facility] HemeAutoSS Neutrophils/Leukocytes Auto (Bld) [Pure # fraction] 3.2 E9/L Normal 2.0 - 7.5 E9/L [facility] HemeAutoSS HEMATOLOGYOrdered By: Neva Martel on 10-14-2022 Erythrocyte distribution width (RBC) [Ratio] 14.9 % High 10.9 - 14.2 % [facility]eAutoSS Hematocrit (Bld) [Volume fraction] 35.0 % Normal 34.0 - 46.0 % [facility] HemeAutoSS Hemoglobin (Bld) [Mass/Vol] 11.8 g/dL Low 12.0 - 16.0 gm/dL [facility] HemeAutoSS MCH (RBC) [Entitic mass] 27.3 pg Normal 27.0 - 34.0 pg [facility] HemeAutoSS MCHC (RBC) [Mass/Vol] 33.8 g/dL Normal 31.4 - 36.0 gm/dL [facility] HemeAutoSS MCV (RBC) [Entitic vol] 80.7 fL Normal 80.0 - 100.0 fL [facility] HemeAutoSS Platelet mean volume (Bld) [Entitic vol] 7.3 fL Normal 6.4 - 10.8 fL [facility] HemeAutoSS Platelets (Bld) [#/Vol] 372.0 E9/L Normal 150. 0 - 500.0 E9/L [facility] HemeAutoSS RBC (Bld) [#/Vol] 4.3 E12/L Normal 4.3 - 5.9 E12/L [facility]eAutoSS WBC corrected for nucl RBC Auto (Bld) [#/Vol] 5.5 E9/L Normal 4.0 - 11.0 E9/L [facility] HemeAutoSS U Drug Screenon 10-14-2022 Amphetamines Screen method >1000 ng/mL Ql (U) Negative Normal Negative [facility] Comment on above: Result Comment: Nega tive Cutoff: <1000 ng/mL Performed By: #### 2 030453 ####[facility] [address] [place] [address] Barbiturates Screen Ql (U) Negative Normal Negative [facility] Comment on above: Result Comment: Nega tive Cutoff: <200 ng/mL Performed By: #### 2 026368 ####[facility] [address] [place] [address] Benzodiazepines Ql (U) Negative Normal Negative [facility] Comment on above: Result Comment: Nega tive Cutoff: <200 ng/mL Performed By: #### 2 771864 ####[facility] [address] [place] [address] Cocaine Ql (U) Negative Normal Negative [facility] Comment on above: Result Comment: Nega tive Cutoff: <300 ng/mL Performed By: #### 2 358896 ####[facility] [address] [place] [address] Opiates Screen Ql (U) Negative Normal Negative [facility] Comment on above: Result Comment: Nega tive Cutoff: <300 ng/mL Performed By: #### 2 485169 ####[facility] [address] [place] [address] Phencyclidine Screen method >25 ng/mL Ql (U) Negative Normal Negative [facility] Comment on above: Result Comment: Nega tive Cutoff: <25 ng/mLThese drug screen results are to be used for medical (i.e., treatment) purposes only. Unconfirmed drug screening results must not be used for non-medical purposes (e.g., employment testing, legal testing). Performed By: #### 2 551663 ####[facility] [address] [place] [address] Tetrahydrocannabinol Screen method >50 ng/mL Ql (U) Negative Normal Negative [facility] Comment on above: Result Comment: Nega tive Cutoff: <50 ng/mL Performed By: #### 2 010724 ####[address] [place] [address] eGFRon 10-14-2022 GFR/1.73 sq M.predicted among non-blacks MDRD (S/P/Bld) [Vol rate/Area] 114 mL/min/1.73 m2 Normal >=59 [facility] Comment on above: Order Comment: Order added by Discern Expert. Result Comment: Report Programmer akbar kidney disease could be indicated at eGFR's of less than 60 mL/min/1.73m2. Kidney failure is indicated at less than 15 mL/min/1.73m2. Performed By: #### 2 956390, 9802344, 12556365, 4588908 ####[facility] [address] [place] [address] ED Clinical Summaryon 2022 ED Clinical Summary [facility] [address] [place] [address] ED Clinical Summary Person Information Name: Rosangela Lindo Cristy/[facility]_Seanor Age: 42 Years : 1980 Sex: Female PCP: Da Pierce DO Marital Status: Phone: Race: White Ethnicity: Not or Language: Luxembourger Visit Reason: Wrist injury - Minor; Hand Pain Acuity: 4 Enc Type: Emergency Med Service: Emergency Medicine Arrival: 10/11/2022 10:03:07 Discharge: 10/11/2022 11:28:00 LOS: 000 01:25 Checkin: 10/11/2022 10:03:07 Checkout: 10/11/2022 11:28:00 Dispo Type: Home or Self Care Address: [address] [place] [phone] Provider Notes: Diagnosis: 1:Right wrist pain Problems No Problems Documented Smoking Status: Smoking Status Never (less than 100 in lifetime) Functional Status: Sensory Deficits: History of Falls: Mobility Assistance Prior to Admission: ADLs: Current Level of Assistance for Self-Care/Mobility: Cognitive Status: Allergies No Known Medication Allergies No Known Allergies Laboratory or Other Results This Visit (last charted value for your 10/11/2022 visit) Diagnostic Radiology 10/11/2022 10:52 AM XR Wrist 3 or More Views Right: XR Wrist 3 or More Views Right Measurements: Height: Weight: 82.9 kg Blood Pressure: /92 mmHg BMI: Procedures No Procedures Documented Immunizations No Immunizations Documented This Visit Final Med List: Medications that have not changed Other Medications hydrOXYzine (hydrOXYzine hydrochloride 25 mg oral tablet) 1 Tabs Oral (given by mouth) every 8 hours as needed as needed for anxiety. Last Dose: ____ lurasidone (Latuda 20 mg oral tablet) 1 Tabs Oral (given by mouth) every day. Last Dose: ____ OXcarbazepine (OXcarbazepine 150 mg oral tablet) 1 Tabs Oral (given by mouth) once a day (in the morning). Last Dose: ____ OXcarbazepine (OXcarbazepine 300 mg oral tablet) 1 Tabs Oral (given by mouth) once a day (at bedtime). Last Dose: ____ sertraline (sertraline 100 mg oral tablet) 1 Tabs Oral (given by mouth) once a day (in the morning). Last Dose: ____ traZODone (traZODone 100 mg oral tablet) 1 Tabs Oral (given by mouth) once a day (at bedtime). Last Dose: ____ Other Medications hydrOXYzine (hydrOXYzine hydrochloride 25 mg oral tablet) 1 Tabs Oral (given by mouth) every 8 hours as needed as needed for anxiety. lurasidone (Latuda 20 mg oral tablet) 1 Tabs Oral (given by mouth) every day. OXcarbazepine (OXcarbazepine 150 mg oral tablet) 1 Tabs Oral (given by mouth) once a day (in the morning). OXcarbazepine (OXcarbazepine 300 mg oral tablet) 1 Tabs Oral (given by mouth) once a day (at bedtime). sertraline (sertraline 100 mg oral tablet) 1 Tabs Oral (given by mouth) once a day (in the morning). traZODone (traZODone 100 mg oral tablet) 1 Tabs Oral (given by mouth) once a day (at bedtime). Care Team Members: Attending Physician: Louann Mascorro PA-C Consulting Physician: Referring Physician: Provider Role Assigned Unassigned Louann Mascorro PA-C ED MidLevel 10/11/2022 10:05:05 Jailyn Chapman ED Nurse 10/11/2022 10:34:38 Follow up: With: Address: When: Anderson Alfredo [address] [place] [phone] Business (1) Within 2 to 4 days Comments: Recheck/further evaluation Call today for appointment With: Address: When: Da Law [address] [place] [address] [phone] [employer] (1) With: Address: When: Emergency Room , only if needed Comments: Rest, Ice, Elevation Motrin or Tylenol if needed for pain Discharge Orders: Discharge Patient 10/11/22 11:15:00 EDT, Discharge to Home, Self Patient Education Information: Pain, Acute, Uncertain Cause; [facility] Poison Help line: . [facility] Hotline: [place] Tobacco Quit Line: [place], [place]) [address]: [phone] [place], [place]) [address]: [phone] [facility] [address], [place]: [phone] [facility] ED Note-Nursingon 10-11-2022 ED Note-Nursing Intake questions completed. DAST and AUDIT completed, patient states that she does not do any drugs of alcohol. DAST score 0, positive reinforcement. AUDIT score 0, positive reinforcement. Patient has not had any falls recently, tetanus shot up to date, patient feels safe at home. No HI/SI thoughts. Patient states that she is not and her last menstrual cycle was 09/24/2022. Patient received 2 doses of the covid vaccine. Patient's allergies are listed in chart. Patient does no smoke cigarettes. Patient is a full code and has no other concerns at this time. Electronically signed by Jailyn Chapman 10/11/22 10:27 EDT [facility] ED Note-Physicianon 10-12-19 ED Note-Physician Chief Complaint Patient slipped on September 02 injuring her right hand and wrist, wants a second opinion because the pain and discomfort has not gotten any better. History of Present Illness Patient presents to ED c/o right wrist pain since a fall 1 month ago. She was seen in ED at that time, had a normal x-ray but continues to have pain so would like a recheck. Patient denies bruising, swelling, decreased range of motion, weakness and numbness. Symptoms are aggravated by movement/pressure and alleviated by nothing. Patient has not had similar symptoms in the past, she has not taken any medication prior to arrival. Review of Systems General: [Negative for fever, chills, weakness, malaise] Head/Face: [Negative for injury, pain] Eyes: [Negative for injury, redness, pain, discharge] Neck: [Negative for injury, pain, swelling, stiffness] Cardiovascular: [Negative for chest pain, palpitations, edema] Respiratory: [Negative for shortness of breath, cough, wheezing, pleuritic chest pain] Musculoskeletal/Extre mity: [Positive for right wrist pain w/old injury. Negative for decreased range of motion, swelling, bruising, numbness, tingling, weakness] Skin: [Negative for injury, rash, discoloration] Neuro: [Negative for LOC, headache, dizziness, altered mental status, seizure activity, syncope, weakness] All other systems reviewed are negative and normal Physical Exam General: [Alert, awake, afebrile, no apparent distress] Eyes: [PERRL, extraocular movements intact, clear conjunctiva] Head/Face: [Normocephalic, atraumatic] Neck: [No midline tenderness, supple, no nuchal rigidity, full range of motion] Cardiovascular: [Regular rate and rhythm, no appreciated murmurs, normal S1 and S2, strong radial pulses w/intact distal perfusion] Respiratory: [Lungs clear to auscultation w/out wheezes, rhonchi, or rales, normal excursion, no accessory muscle use, no stridor] Musculoskeletal/Extre mity: [Radial aspect of right wrist tender to palpation. Normal range of motion, no deformity, no ecchymosis, no swelling, no erythema. Pulses normal, sensation intact] Skin: [[place], warm, dry, no injury, no rashes] Neuro: [Alert and oriented x 3, GCS 15, Normal mentation and speech. Moves all extremities w/out motor or sensory deficit, gait is steady, strength normal in all extremities] Psych: [Normal mood and affect, thought process is clear and linear] Vitals & Measurements T: 36.7 ?C (Oral) HR: 75 (Peripheral) RR: 16 BP: 135/92 SpO2: 94% HT: 157.5 cm WT: 82.9 kg (Dosing) Additional Vitals No qualifying data available. Medical Decision Making MEDICAL DECISION MAKING Number and Complexity of Problems Differential Diagnosis: wrist pain, sprain, fracture MDM Data External documents reviewed: _ My EKG interpretation: _ My CT interpretation: _ My X-ray interpretation: no acute findings My Ultrasound interpretation: _ Decision rules/scores evaluated: _ Discussed with: _ Decision rules/scores evaluated: _ ? HEART Score: Not Completed ? PERC Rule: _ ? NEXUS C-spine Criteria: _ ? Rampart Ankle Rule: _ ? Rampart Knee Rule: _ ? Wells Criteria for DVT: _ ? Wells Criteria for PE: _ Discussed with: _ Treatment and Disposition ED Course: Patient w/ongoing right wrist pain following a fall one month ago. Radial aspect of right wrist tender on exam. Vitals are stable, patient is neurovascularly intact. Plain film shows no acute findings. Will d/c home and have patient follow up w/orthopedics for recheck if symptoms persist. Patient has a wrist splint to use at home from previous ED visit. Shared decision making: _ Code status: _ Reexamination/Reevalu ation Patient is resting comfortably in room, no distress. Assessment/Plan 1. Right wrist pain Orders: Discharge Patient Refresh vitals and sections below: Problem List/Past Medical History Ongoing Anxiety Depression Low serum potassium level Seasonal nasal allergies Historical No qualifying data Procedure/Surgical History wisdom teeth Medications Inpatient No active inpatient medications Home hydrOXYzine hydrochloride 25 mg oral tablet, 25 mg= 1 tabs, Oral, q8hr, PRN Latuda 20 mg oral tablet, 20 mg= 1 tabs, Oral, Daily OXcarbazepine 150 mg oral tablet, 150 mg= 1 tabs, Oral, qAM OXcarbazepine 300 mg oral tablet, 300 mg= 1 tabs, Oral, HS (at bedtime) sertraline 100 mg oral tablet, 100 mg= 1 tabs, Oral, qAM traZODone 100 mg oral tablet, 100 mg= 1 tabs, Oral, HS (at bedtime) Allergies No Known Allergies No Known Medication Allergies Social History Alcohol Never Home/Environment Lives with Significant other. Sexual Sexually active: Yes. History of sexual abuse: No. Substance Abuse Denies All Tobacco Never (less than 100 in lifetime) Use:. Family History Cancer of colon: Father. Dementia: Grandfather (M). Diabetes: Grandfather (M). Stroke..: Grandfather (M). Thyroid disease: Mother. Diagnostic Results XRay XR Wrist 3 (more content not included)... Normal [facility] XR Wrist 3 or More Views Rig hton 10-11-2022 XR Wrist 3 or More Views Right STUDY: XR Wrist 3 or More Views Right, [id number] HISTORY: Injury, COMPARISON: Right wrist x-rays 09/04/2022. FINDINGS: No acute fracture, evidence of recent fracture, dislocation, or suspicious osseous lesion. No significant degenerative changes. Visualized soft tissues are within normal limits. Scapholunate interval is within normal limits. IMPRESSION: Negative exam. No evidence of recent fracture or osseous etiology for persistent right wrist pain demonstrated. Final Dictated by: Romain Cottrell MD Dictated DT/TM: 10/11/2022 11:02 am Signed by: Romain Cottrell MD Signed (Electronic Signature): 10/11/2022 11:04 am (If Report Is Signed, Electronically Signed in Other Vendor System) Normal [facility] .Fentanyl Scrn wo Conf,[place]ron 10-04-2022 Ur Fentanyl Scrn Negative Normal NEG <1.0 [facility] Comment on above: Performed By: #### . Urinalysis Microscopic Man #### [place] [address] Ur Fentanyl Scrn Qnt 0.29 ng/mL Normal <=0.99 [facility] Comment on above: Performed By: #### . Urinalysis Microscopic Man #### [address] [address] .UA Microscp Aon 10-04-2022 UA Mucus Present Abnormal Absent [facility] Comment on above: Performed By: #### . Urinalysis Microscopic Auto #### [facility] [address] [place] [address] UA RBC Quant 1 /HPF Normal 0-5 [facility] Comment on above: Performed By: #### . Urinalysis Microscopic Auto #### [facility] [address] [place] [address] UA Squepi Cells Quant 10 /HPF Normal 0-29 [facility] Comment on above: Performed By: #### . Urinalysis Microscopic Auto #### [facility] [address] [place] [address] UA WBC Quant 7 /HPF High 0-5 [facility] Comment on above: Performed By: #### . Urinalysis Microscopic Auto #### [facility] [address] [place] [address] .eGFRon 10-04-2022 GFR/1.73 sq M.predicted MDRD (S/P/Bld) [Vol rate/Area] mL/min/{1.73_m2} Normal >=60 [facility] Comment on above: Result Comment: [facility] Laboratories have implemented the eGFR calculation approach that does not have a coefficient for race and that conforms to the NKF-ASN Task Force Recommendations. Stages of Chronic Kidney Disease GFR Stage 3a Mild to moderate loss of kidney function 59 to 45 Stage 3b Moderate to severe loss of kidney function 44 to 33 Stage 4 Severe loss of kidney function 29 to 15 Stage 5 Kidney failure Less than 15 GFR calculated using the CKD-Epi Creatinine Equation (2020): eGFR = 142 X min(SCr/?, 1)? X max(SCr /?, 1)-1.200 X 0.9938Age X 1.012 [if female] Abbreviations/Units: eGFR (estimated glomerular filtration rate) = mL/min/1.73 m2 SCr (standardized serum creatinine) = mg/dL ? = 0.7 (females) or 0.9 (males) ? = -0.241 (females) or -0.302 (males) min = indicates the minimum of SCr/? or 1 max = indicates the maximum of SCr/? or 1 Age = years Performed By: #### . Urinalysis Microscopic Man #### [facility] [address] [place] [address] CMPon 10-04-2022 Albumin [Mass/Vol] 3.4 g/dL Normal 3.2-4.9 [facility] Comment on above: Performed By: #### . Urinalysis Microscopic Auto #### [address] [address] Albumin/Globulin [Mass ratio] 1.0 {ratio} Low 1.1-2.2 [facility] Comment on above: Performed By: #### . Urinalysis Microscopic Auto #### [address] [address] Alk Phos 71 IU/L Normal 32-91 [facility] Comment on above: Performed By: #### . Urinalysis Microscopic Auto #### [place] [id number] ALT [Catalytic activity/Vol] 16 U/L Normal 14-54 [facility] Comment on above: Performed By: #### . Urinalysis Microscopic Auto #### [place] [id number] Anion gap [Moles/Vol] 10 mmol/L Normal 7-17 [facility] Comment on above: Performed By: #### . Urinalysis Microscopic Auto #### [address] [address] AST [Catalytic activity/Vol] 15 U/L Normal 15-41 [facility] Comment on above: Performed By: #### . Urinalysis Microscopic Auto #### [address] [address] Bili Total 0.2 mg/dL Low 0.3-1.2 [facility] Comment on above: Performed By: #### . Urinalysis Microscopic Auto #### [address] [address] Calcium [Mass/Vol] 8.6 mg/dL Normal 8.5-10.3 [facility] Comment on above: Performed By: #### . Urinalysis Microscopic Auto #### [address] [address] Chloride [Moles/Vol] 106 mmol/L Normal 98-110 [facility] Comment on above: Performed By: #### . Urinalysis Microscopic Auto #### [address] [address] CO2 [Moles/Vol] 24 mmol/L Normal 22-32 [facility] Comment on above: Performed By: #### . Urinalysis Microscopic Auto #### [address] [address] Creatinine [Mass/Vol] 0.73 mg/dL Normal 0.44-1.03 [facility] Comment on above: Performed By: #### . Urinalysis Microscopic Auto #### [address] [address] Glucose [Mass/Vol] 113 mg/dL High 70-99 [facility] Comment on above: Performed By: #### . Urinalysis Microscopic Auto #### [address] [address] Potassium [Moles/Vol] 3.5 mmol/L Normal 3.4-4.8 [facility] Comment on above: Performed By: #### . Urinalysis Microscopic Auto #### [address] [address] Protein [Mass/Vol] 6.7 g/dL Normal 6.5-8.1 [facility] Comment on above: Performed By: #### . Urinalysis Microscopic Auto #### [address] [address] Sodium [Moles/Vol] 136 mmol/L Normal 133-142 [facility] Comment on above: Performed By: #### . Urinalysis Microscopic Auto #### [address] [address] Urea nitrogen [Mass/Vol] 15 mg/dL Normal 8-26 [facility] Comment on above: Performed By: #### . Urinalysis Microscopic Auto #### [address] [address] Urea nitrogen/Creatinine [Mass ratio] 20.5 mg/mg High 10.0-20.0 [facility] Comment on above: Performed By: #### . Urinalysis Microscopic Auto #### [facility] [address] [place] [address] ED Clinical Summaryon 2022 ED Clinical Summary [address] [address] ED Clinical Summary Person Information Name: Rosangela Lindo [place] Age: 42 Years : 1980 Sex: Female PCP: Da Pierce DO Marital Status: Phone: Race: White Ethnicity: Not or Language: Luxembourger Visit Reason: Anxiety; Depression; Depression Acuity: 2 Enc Type: Emergency Med Service: Emergency Medicine Arrival: 10/03/2022 22:21:51 Discharge: 10/04/2022 02:31:00 LOS: 000 04:10 Checkin: 10/03/2022 22:21:51 Checkout: 10/04/2022 02:31:00 Dispo Type: Home or Self Care Address: [address] [place] [address] Provider Notes: Diagnosis: 1:Depression with suicidal ideation; 2:Anxiety Problems No Problems Documented Smoking Status: Smoking Status Never (less than 100 in lifetime) Functional Status: Sensory Deficits: History of Falls: Mobility Assistance Prior to Admission: ADLs: Current Level of Assistance for Self-Care/Mobility: Cognitive Status: Allergies No Known Medication Allergies No Known Allergies Laboratory or Other Results This Visit (last charted value for your 10/03/2022 visit) Urinalysis 10/03/2022 11:05 PM UA Spec Grav: 1.023 -- Normal range between ( 1.003 and 1.035 ) UA pH: 6.0 10/03/2022 0:00 AM UA Color: Light-Yellow UA Urobilinogen: Normal mg/dL UA Bili: Negative UA Ketones: Negative mg/dL UA Leukocyte Esterase: 75 UA Nitrite: Negative UA Glucose: Normal mg/dL UA Protein: Negative mg/dL UA Blood: 2+ UA Clarity: Clear UA Source: Clean Catch UA Mucus: Present /LPF UA WBC Quant: 7 /HPF -- Normal range between ( 0 and 5 ) UA RBC Quant: 1 /HPF -- Normal range between ( 0 and 5 ) UA Squepi Cells Quant: 10 /HPF -- Normal range between ( 0 and 29 ) Chemistry 10/03/2022 11:05 PM Ur Creatinine Tox Scrn: 156.1 mg/dL 10/03/2022 11:02 PM Creatinine Lvl: 0.73 mg/dL -- Normal range between ( 0.44 and 1.03 ) BUN: 15 mg/dL -- Normal range between ( 8 and 26 ) Glucose Lvl: 113 mg/dL -- Normal range between ( 70 and 99 ) Potassium Lvl: 3.5 mmol/L -- Normal range between ( 3.4 and 4.8 ) AST: 15 IU/L -- Normal range between ( 15 and 41 ) ALT: 16 IU/L -- Normal range between ( 14 and 54 ) Sodium Lvl: 136 mmol/L -- Normal range between ( 133 and 142 ) Calcium Lvl: 8.6 mg/dL -- Normal range between ( 8.5 and 10.3 ) Albumin Lvl: 3.4 g/dL -- Normal range between ( 3.2 and 4.9 ) Total Protein: 6.7 g/dL -- Normal range between ( 6.5 and 8.1 ) Bili Total: 0.2 mg/dL -- Normal range between ( 0.3 and 1.2 ) Alk Phos: 71 IU/L -- Normal range between ( 32 and 91 ) Chloride: 106 mmol/L -- Normal range between ( 98 and 110 ) CO2: 24 mmol/L -- Normal range between ( 22 and 32 ) Anion Gap: 10 -- Normal range between ( 7 and 17 ) Estimated GFR: >60 mL/min/1.73m? BUN Crea Ratio: 20.5 -- Normal range between ( 10.0 and 20.0 ) AG Ratio: 1.0 -- Normal range between ( 1.1 and 2.2 ) Toxicology 10/03/2022 11:05 PM Ur PCP Scrn: Negative ng/mL Ur Opiate Scrn: Negative ng/mL Ur Methadone Scn: Negative ng/mL Ur Cannab Scrn: Negative ng/mL Ur Amph Scrn: Negative ng/mL Ur Benzodia Scrn: Negative ng/mL Ur Lacey Scrn: Negative ng/mL Ur Cocaine Scrn: Negative ng/mL Ur Oxy Screen: Negative ng/mL Ur Fentanyl Scrn: Negative ng/mL 10/03/2022 11:02 PM Ethanol, Plasma: <10 mg/dL Measurements: Height: Weight: 82.7 kg Blood Pressure: /105 mmHg BMI: Procedures No Procedures Documented Immunizations No Immunizations Documented This Visit Final Med List: Medications that have not changed Other Medications hydrOXYzine (hydrOXYzine hydrochloride 25 mg oral tablet) 1 Tabs Oral (given by mouth) every 8 hours as needed as needed for anxiety. Last Dose: ____ lurasidone (Latuda 20 mg oral tablet) 1 Tabs Oral (given by mouth) every day. Last Dose: ____ OXcarbazepine (OXcarbazepine 150 mg oral tablet) 1 Tabs Oral (given by mouth) once a day (in the morning). Last Dose: ____ OXcarbazepine (OXcarbazepine 300 mg oral tablet) 1 Tabs Oral (given by mouth) once a day (at bedtime). Last Dose: ____ sertraline (sertraline 100 mg oral tablet) 1 Tabs Oral (given by mouth) once a day (in the morning). Last Dose: ____ traZODone (traZODone 100 mg oral tablet) 1 Tabs Oral (given by mouth) once a day (at bedtime). Last Dose: ____ Other Medications hydrOXYzine (hydrOXYzine hydrochloride 25 mg oral tablet) 1 Tabs Oral (given by mouth) every 8 hours as needed as needed for anxiety. lurasidone (Latuda 20 mg oral tablet) 1 Tabs Oral (given by mouth) every day. OXcarbazepine (OXcarbazepine 150 mg oral tablet) 1 Tabs Oral (given by mouth) once a day (in the morning). OXcarbazepine (OXcarbazepine 300 mg oral tablet) 1 Tabs Oral (given by mouth) once a day (at bedtime). sertraline (more content not included)... Normal [facility] Ethanolon 10-04-2022 Ethanol, Plasma <10 Normal <=9 [facility] Comment on above: Result Comment: To c onvert mg/dL to g/dL, divide result by 1,000. Legal limit of intoxication is 80 mg/dL (0.08 g/dL). Performed By: #### C [id number] #### [place] [address] UA w Culture if Indon 2022 Color (U) Light-Yellow Normal [facility] Comment on above: Performed By: #### C BC #### [place] [address] Ketones Ql (U) Negative Normal Negative [facility] Comment on above: Performed By: #### C BC #### [place] [address] UA Blood 2+ Abnormal Negative [facility] Comment on above: Performed By: #### C BC #### [place] [address] UA Clarity Clear Normal [facility] Comment on above: Performed By: #### C BC #### [place] [address] UA Glucose Normal Normal Negative [facility] Comment on above: Performed By: #### C BC #### [place] [address] UA Leukocyte Esterase 75 Abnormal Negative [facility] Comment on above: Performed By: #### C BC #### [place] [address] UA Nitrite Negative Normal Negative [facility] Comment on above: Performed By: #### C BC #### [place] [address] UA pH 6.0 Normal 4.5 - 7.8 [facility] Comment on above: Performed By: #### C BC #### [place] [address] UA Protein Negative Normal Negative [facility] Comment on above: Performed By: #### C BC #### [place] [address] UA Source Clean Catch Normal [facility] Comment on above: Performed By: #### C BC #### [place] [address] UA Spec Grav 1.023 Normal 1.003-1.035 [facility] Comment on above: Performed By: #### C BC #### [place] [address] UA Urobilinogen Normal Normal 0.2 - 1.0 [facility] Comment on above: Performed By: #### C BC #### [place] [address] Urobilinogen (U) [Mass/Vol] Negative Normal Negative [facility] Comment on above: Performed By: #### C BC #### [place] [address] UDS Compon 10-04-2022 Creatinine [Mass/Vol] 156.1 mg/dL Normal [facility] Comment on above: Performed By: #### C [id number] #### [place] [address] Ur Amph Scrn Negative Normal NEG = <1000 [facility] Comment on above: Performed By: #### C [id number] #### [place] [address] Ur Lacey Scrn Negative Normal NEG = <200 [facility] Comment on above: Performed By: #### C [id number] #### [place] [address] Ur Benzodia Scrn Negative Normal NEG = <200 [facility] Comment on above: Performed By: #### C [id number] #### [place] [address] Ur Cannab Scrn Negative Normal NEG = <50 [facility] Comment on above: Performed By: #### C [id number] #### [place] [address] Ur Cocaine Scrn Negative Normal NEG = <300 [facility] Comment on above: Performed By: #### C [id number] #### [place] [address] Ur Methadone Scn Negative Normal NEG = <300 [facility] Comment on above: Performed By: #### C [id number] #### [place] [address] Ur Opiate Scrn Negative Normal NEG = <300 [facility] Comment on above: Performed By: #### C [id number] #### [place] [address] Ur Oxy Screen Negative Normal NEG = <100 [facility] Comment on above: Performed By: #### C [id number] #### [place] [address] Ur Oxy Scrn Qnt 2 ng/mL Normal <=99 [facility] Comment on above: Performed By: #### C [id number] #### [place] [address] Ur PCP Scrn Negative Normal NEG = <25 [facility] Comment on above: Performed By: #### C [id number] #### [place] [address] UA pH 6.0 Normal 4.5 - 7.8 [facility] Comment on above: Performed By: #### C [id number] #### [place] [address] UA Spec Grav 1.023 Normal 1.003-1.035 [facility] Comment on above: Performed By: #### C [id number] #### [place] [address] .eGFRon 09-29-2022 GFR/1.73 sq M.predicted MDRD (S/P/Bld) [Vol rate/Area] mL/min/{1.73_m2} Normal >=60 [facility] Comment on above: Order Comment: Order added by Discern rule Result Comment: [facility] Laboratories have implemented the eGFR calculation approach that does not have a coefficient for race and that conforms to the NKF-ASN Task Force Recommendations. Stages of Chronic Kidney Disease GFR Stage 3a Mild to moderate loss of kidney function 59 to 45 Stage 3b Moderate to severe loss of kidney function 44 to 33 Stage 4 Severe loss of kidney function 29 to 15 Stage 5 Kidney failure Less than 15 GFR calculated using the CKD-Epi Creatinine Equation (2020): eGFR = 142 X min(SCr/?, 1)? X max(SCr /?, 1)-1.200 X 0.9938Age X 1.012 [if female] Abbreviations/Units: eGFR (estimated glomerular filtration rate) = mL/min/1.73 m2 SCr (standardized serum creatinine) = mg/dL ? = 0.7 (females) or 0.9 (males) ? = -0.241 (females) or -0.302 (males) min = indicates the minimum of SCr/? or 1 max = indicates the maximum of SCr/? or 1 Age = years Performed By: #### E GFR ####[address] [address] AMI 2Hron 09-29-2022 2 Hour Myoglobin 13.7 ng/mL Low 14.3-65.8 [facility] Comment on above: Performed By: #### . Urinalysis Microscopic Auto #### [address] [address] 2 Hour Troponin <0.03 Normal 0.00-0.03 [facility] Comment on above: Result Comment: An i ncreased Troponin-I value, in the absence of myocardial ischemia, may indicate other etiologies of cardiac damage. Performed By: #### . Urinalysis Microscopic Auto #### [address] [address] AMI Initon 09-29-2022 Initial Myoglobin 14.1 ng/mL Low 14.3-65.8 [facility] Comment on above: Performed By: #### . Urinalysis Microscopic Auto #### [place] [id number] [place] [address] Initial Troponin <0.03 Normal 0.00-0.03 [facility] Comment on above: Result Comment: An i ncreased Troponin-I value, in the absence of myocardial ischemia, may indicate other etiologies of cardiac damage. Performed By: #### . Urinalysis Microscopic Auto #### [place] [id number] [place] [id number] CBC w/ Diffon 09-29-2022 Erythrocyte distribution width (RBC) [Ratio] 14.6 % Normal 11.6-14.8 [facility] Comment on above: Performed By: #### C BC #### [place] [address] Hematocrit (Bld) [Volume fraction] 33.5 % Low 36.0-46.0 [facility] Comment on above: Performed By: #### C BC #### [place] [address] Hemoglobin (Bld) [Mass/Vol] 11.1 g/dL Low 12.0-16.0 [facility] Comment on above: Performed By: #### C BC #### [place] [address] MCH (RBC) [Entitic mass] 27.0 pg Normal 27.0-35.0 [facility] Comment on above: Performed By: #### C BC #### [place] [address] MCHC 33.0 % Normal 31.0-37.0 [facility] Comment on above: Performed By: #### C BC #### [place] [address] MCV (RBC) [Entitic vol] 81.8 fL Normal 80.0-100.0 [facility] Comment on above: Performed By: #### C BC #### [place] [address] Platelet 398 x10*3/mcL Normal 150-450 [facility] Comment on above: Performed By: #### C BC #### [place] [address] Platelet mean volume (Bld) [Entitic vol] 7.4 fL Low 7.5-11.5 [facility] Comment on above: Performed By: #### C BC #### [place] [address] RBC 4.09 x10*6/mcL Normal 3.80-5.20 [facility] Comment on above: Performed By: #### C BC #### [place] [address] WBC 5.6 x10*3/mcL Normal 4.5-11.0 [facility] Comment on above: Performed By: #### C BC #### [place] [address] CMPon 09-29-2022 Albumin [Mass/Vol] 3.8 g/dL Normal 3.7-5.3 [facility] Comment on above: Performed By: #### C [id number] #### [place] [address] Albumin/Globulin [Mass ratio] 1.3 {ratio} Normal 1.1-2.2 [facility] Comment on above: Performed By: #### C [id number] #### [place] [address] Alk Phos 79 IU/L Normal 34-104 [facility] Comment on above: Performed By: #### C [id number] #### [place] [address] ALT [Catalytic activity/Vol] 12 U/L Normal 7-52 [facility] Comment on above: Performed By: #### C [id number] #### [place] [address] Anion gap [Moles/Vol] 11 mmol/L Normal 7-17 [facility] Comment on above: Performed By: #### C D:[id number] #### [place] [address] AST [Catalytic activity/Vol] 11 U/L Low 13-39 [facility] Comment on above: Performed By: #### C [id number] #### [address] [address] Bili Total 0.2 mg/dL Low 0.3-1.0 [facility] Comment on above: Performed By: #### C [id number] #### [address] [address] Calcium [Mass/Vol] 8.6 mg/dL Normal 8.6-10.3 [facility] Comment on above: Performed By: #### C [id number] #### [place] [address] Chloride 105 IU/L Normal 98-107 [facility] Comment on above: Performed By: #### C [id number] #### [address] [address] CO2 [Moles/Vol] 24 mmol/L Normal 21-31 [facility] Comment on above: Performed By: #### C [id number] #### [address] [address] Creatinine [Mass/Vol] 0.86 mg/dL Normal 0.60-1.20 [facility] Comment on above: Performed By: #### C [id number] #### [address] [address] Glucose [Mass/Vol] 94 mg/dL Normal 70-99 [facility] Comment on above: Performed By: #### C [id number] #### [address] [address] Potassium [Moles/Vol] 3.6 mmol/L Normal 3.4-4.8 [facility] Comment on above: Performed By: #### C D:[id number] #### [address] [address] Protein [Mass/Vol] 6.8 g/dL Normal 6.0-8.3 [facility] Comment on above: Performed By: #### C [id number] #### [address] [address] Sodium [Moles/Vol] 136 mmol/L Normal 136-145 [facility] Comment on above: Performed By: #### C D:[id number] #### [address] [address] Urea nitrogen [Mass/Vol] 8 mg/dL Normal 7-25 [facility] Comment on above: Performed By: #### C D:[id number] #### [address] [address] Urea nitrogen/Creatinine [Mass ratio] 9.3 mg/mg Low 10.0-20.0 [facility] Comment on above: Performed By: #### C D:[id number] #### [address] [address] [address] Angio Chest w/ Contraston 09-29-2022 CT Angio Chest w/ Contrast EXAMINATION: CT Angio Chest w/ Contrast HISTORY: Other (please specify), Pulmonary embolism (PE) suspected, positive D-dimer . Chest discomfort. COMPARISON: None. TECHNIQUE: CT angiography of the pulmonary arteries following the administration of intravenous contrast. Coronal and sagittal MIP (maximum intensity projection) images were performed. Dose reduction techniques were achieved by using automated exposure control and/or adjustment of mA and/or kV according to patient size and/or use of iterative reconstruction technique. FINDINGS: No evidence of pulmonary arterial embolism. No enlarged lymph nodes within the chest. Minimal bilateral dependent atelectasis. The pleural spaces are clear. IMPRESSION: 1. No evidence of pulmonary arterial embolism. 2. Minimal bilateral lower lobe atelectasis. Final Dictated by: Dom Cao MD Dictated DT/TM: 09.29.2022 7:27 pm Signed by: Dom Cao MD Signed (Electronic Signature): 09.29.2022 7:29 pm (If Report Is Signed, Electronically Signed in Other Vendor System) Normal [facility] D-Dimeron 09-29-2022 D-Dimer 0.60 mg/L feu High 0.00-0.49 [facility] Comment on above: Result Comment: Resu lts of the D-Dimer test should always be interpreted in conjunction with the patient's medical history, clinical presentation, and other findings. Results <0.5 mg/L are considered NEGATIVE for VTE. Results >= 0.5 mg/L require further clinical evaluation. Levels of triglyceride up to 600 mg/dl do not interfere with this D-Dimer assay. Performed By: #### A LC #### [facility] [address] [place] [address] Diff Autoon 09-29-2022 Baso Absolute 0.0 x10*3/mcL Normal 0.0-0.2 [facility] Comment on above: Performed By: #### C D:[id number] #### [address] [address] Basophils/100 WBC (Bld) 0.5 % Normal 0.0-1.5 B [facility] Comment on above: Performed By: #### C [id number] #### [address] [address] Eos Absolute 0.1 x10*3/mcL Normal 0.0-0.4 [facility] Comment on above: Performed By: #### C [id number] #### [address] [address] Eosinophils/100 WBC (Bld) 1.4 % Normal 0.0-5.4 [facility] Comment on above: Performed By: #### C D:[id number] #### [address] [address] Lymph Absolute 1.8 x10*3/mcL Normal 1.0-4.8 [facility] Comment on above: Performed By: #### C D:[id number] #### [address] [address] Lymphocytes/100 WBC (Bld) 31.6 % Normal 27.2-40.8 [facility] Comment on above: Performed By: #### C [id number] #### [address] [address] [place] Absolute 0.4 x10*3/mcL Normal 0.1-1.1 [facility] Comment on above: Performed By: #### C [id number] #### [address] [address] Monocytes/100 WBC (Bld) 7.3 % Normal 3.7-11.9 B [facility] Comment on above: Performed By: #### C D:[id number] #### [place] [id number] Neutro Absolute 3.3 x10*3/mcL Normal 1.8-7.7 [facility] Comment on above: Performed By: #### C D:[id number] #### [place] [address] Neutro Auto 59.2 % Normal 47.2-70.8 [facility] Comment on above: Performed By: #### C [id number] #### [address] [address] ED Clinical Summaryon 2022 ED Clinical Summary [place] [address] ED Clinical Summary Person Information Name: Rosangela Lindo/[facility] Age: 42 Years : 1980 Sex: Female PCP: Marital Status: Phone: Race: White Ethnicity: Not or Language: Luxembourger Visit Reason: Chest pain; Chest pressure Acuity: 3 Enc Type: Emergency Med Service: Emergency Medicine Arrival: 09/29/2022 15:04:00 Discharge: 09/29/2022 19:42:00 LOS: 000 04:38 Checkin: 09/29/2022 15:04:00 Checkout: 09/29/2022 19:42:00 Dispo Type: Home or Self Care Address: [address] [place] [address] Provider Notes: Diagnosis: 1:Chest pain Problems No Problems Documented Smoking Status: Functional Status: Sensory Deficits: History of Falls: Mobility Assistance Prior to Admission: ADLs: Current Level of Assistance for Self-Care/Mobility: Cognitive Status: Allergies No Known Medication Allergies No Known Allergies Laboratory or Other Results This Visit (last charted value for your 09/29/2022 visit) Hematology 09/29/2022 3:26 PM WBC: 5.6 x10 RBC: 4.09 x10 Neutro Auto: 59.2 % -- Normal range between ( 47.2 and 70.8 ) Lymph Auto: 31.6 % -- Normal range between ( 27.2 and 40.8 ) [place] Auto: 7.3 % -- Normal range between ( 3.7 and 11.9 ) Eos Auto: 1.4 % -- Normal range between ( 0.0 and 5.4 ) Basophil Auto: 0.5 % -- Normal range between ( 0.0 and 1.5 ) Baso Absolute: 0.0 x10 MCV: 81.8 fL -- Normal range between ( 80.0 and 100.0 ) MCHC: 33.0 % -- Normal range between ( 31.0 and 37.0 ) Lymph Absolute: 1.8 x10 Hct: 33.5 % -- Normal range between ( 36.0 and 46.0 ) [place] Absolute: 0.4 x10 MCH: 27.0 pg -- Normal range between ( 27.0 and 35.0 ) Neutro Absolute: 3.3 x10 Hgb: 11.1 g/dL -- Normal range between ( 12.0 and 16.0 ) Mean Platelet Volume: 7.4 fL -- Normal range between ( 7.5 and 11.5 ) Platelet: 398 x10 Eos Absolute: 0.1 x10 RDW: 14.6 % -- Normal range between ( 11.6 and 14.8 ) Coagulation 09/29/2022 3:26 PM D-Dimer: 0.60 mg/L feu -- Normal range between ( 0.00 and 0.49 ) Chemistry 09/29/2022 5:20 PM 2 Hour Troponin: <0.03 ng/mL -- Normal range between ( 0.00 and 0.03 ) 2 Hour Myoglobin: 13.7 ng/mL -- Normal range between ( 14.3 and 65.8 ) 09/29/2022 3:26 PM Creatinine Lvl: 0.86 mg/dL -- Normal range between ( 0.60 and 1.20 ) BUN: 8 mg/dL -- Normal range between ( 7 and 25 ) Glucose Lvl: 94 mg/dL -- Normal range between ( 70 and 99 ) Potassium Lvl: 3.6 mmol/L -- Normal range between ( 3.4 and 4.8 ) AST: 11 IU/L -- Normal range between ( 13 and 39 ) ALT: 12 IU/L -- Normal range between ( 7 and 52 ) Sodium Lvl: 136 mmol/L -- Normal range between ( 136 and 145 ) Calcium Lvl: 8.6 mg/dL -- Normal range between ( 8.6 and 10.3 ) Albumin Lvl: 3.8 g/dL -- Normal range between ( 3.7 and 5.3 ) Total Protein: 6.8 g/dL -- Normal range between ( 6.0 and 8.3 ) Bili Total: 0.2 mg/dL -- Normal range between ( 0.3 and 1.0 ) Alk Phos: 79 IU/L -- Normal range between ( 34 and 104 ) Chloride: 105 IU/L -- Normal range between ( 98 and 107 ) CO2: 24 mmol/L -- Normal range between ( 21 and 31 ) Anion Gap: 11 -- Normal range between ( 7 and 17 ) Estimated GFR: >60 mL/min/1.73m? BUN Crea Ratio: 9.3 -- Normal range between ( 10.0 and 20.0 ) Serum Preg: Negative AG Ratio: 1.3 -- Normal range between ( 1.1 and 2.2 ) Initial Troponin: <0.03 ng/mL -- Normal range between ( 0.00 and 0.03 ) Initial Myoglobin: 14.1 ng/mL -- Normal range between ( 14.3 and 65.8 ) Computed Tomography 09/29/2022 6:[address] Angio Chest w/ Contrast: CT Angio Chest w/ Contrast Diagnostic Radiology 09/29/2022 3:45 PM XR Chest 1 View: XR Chest 1 View Measurements: Height: Weight: 83.3 kg Blood Pressure: /80 mmHg BMI: Procedures No Procedures Documented Immunizations No Immunizations Documented This Visit Final Med List: Medications that have not changed Other Medications hydrOXYzine (hydrOXYzine hydrochloride 25 mg oral tablet) 1 Tabs Oral (given by mouth) every 8 hours as needed as needed for anxiety. Last Dose: ____ lurasidone (Latuda 20 mg oral tablet) 1 Tabs Oral (given by mouth) every day. Last Dose: ____ OXcarbazepine (OXcarbazepine 150 mg oral tablet) 1 Tabs Oral (given by mouth) once a day (in the morning). Last Dose: ____ OXcarbazepine (OXcarbazepine 300 mg oral tablet) 1 Tabs Oral (given by mouth) once a day (at bedtime). Last Dose: ____ sertraline (sertraline 100 mg oral tablet) 1 Tabs Oral (given by mouth) once a day (in the morning). Last Dose: ____ traZODone (traZODone 100 mg oral tablet) 1 Tabs Oral (given by mouth) once a day (at bedtime). Last Dose: ____ Other Medications hydrOXYzine (hydrOXYzine hydrochloride 25 mg oral tablet) 1 Tabs Oral (given by mouth) every 8 zaina (more content not included)... Normal [facility] ED Note-Physicianon 09-30-19 ED Note-Physician History of Present Illness Patient is a 42 years old female presented emergency room with chest discomfort patient reports that she was doing well until earlier today when stabbing mid chest discomfort. Describes it as aching. Patient denies any shortness of breath, cough. Denies any history of coronary artery disease, PE, aneurysm, high blood pressure, diabetes, cholesterol, or smoking. No other complaints at this time. Denies any history of trauma. Review of Systems As reviewed in the HPI. All other systems reviewed are negative or normal. Physical Exam CONSTITUTIONAL: [no apparent distress, well appearing] SKIN: [warm, dry, no jaundice, hives or petechiae] EYES: [pupils are equally round, extraocular movements intact without nystagmus, clear conjunctiva, non-icteric sclera] HENT: [normocephalic, atraumatic, moist mucus membranes, oropharynx clear without exudates] NECK: [Nontender and supple with no nuchal rigidity, no lymphadenopathy, full range of motion] PULMONARY: [clear to auscultation without wheezes, rhonchi, or rales, normal excursion, no accessory muscle use and no stridor] CARDIOVASCULAR: [regular rate, rhythm, normal S1 and S2. No appreciated murmurs. Strong radial pulses with intact distal perfusion] GASTROINTESTINAL: [soft, non-tender, non-distended, no palpable masses, no rebound or guarding] GENITOURINARY: [No costovertebral angle tenderness to palpation] LYMPHATICS: [no edema in lower extremities, no lymphadenopathy] MUSCULOSKELETAL: [Extremities are nontender to palpation and have no gross deformity, no edema, redness, or swelling] NEUROLOGIC: [alert and oriented x 3, GCS 15, normal mentation and speech. Moves all extremities x 4 without motor or sensory deficit, gait is stable without ataxia] PSYCHIATRIC: [normal mood and affect, thought process is clear and linear] Vitals & Measurements T: 37.1 ?C (Oral) HR: 77 (Peripheral) HR: 77 (Monitored) RR: 18 BP: 133/102 SpO2: 98% HT: 157.5 cm WT: 83.3 kg (Dosing) Additional Vitals No qualifying data available. Procedure No qualifying data available. ASA Documentation Medical Decision Making MEDICAL DECISION MAKING Number and Complexity of Problems Differential Diagnosis: _But not limited to ACS, PE, musculoskeletal pain MDM Data External documents reviewed: _ My EKG interpretation: _ My CT interpretation: _ My X-ray interpretation: _ My Ultrasound interpretation: _ Decision rules/scores evaluated: _ Discussed with: _ Decision rules/scores evaluated: _ ? HEART Score: Not Completed ? PERC Rule: _ ? NEXUS C-spine Criteria: _ ? Rampart Ankle Rule: _ ? Rampart Knee Rule: _ ? Wells Criteria for DVT: _ ? Wells Criteria for PE: _ Discussed with: _ Treatment and Disposition ED Course: Patient is a 42 years old female presented emergency with chest pain. Patient EKG reviewed. No evidence of STEMI. Patient low heart score. Patient D-dimer elevated. Patient CT was done. Negative for acute abnormality. Other than that lab work reassuring. Patient was discharged home in stable condition to follow-up with primary care physician few days. Assessment/Plan 1. Chest pain Orders: sodium chloride, 10 mL, IV Push, Injection, As Indicated, PRN flush, First Dose: 09/29/22 15:07:00 EDT, Dispense From Location: [facility], 09/29/22 15:07:00 EDT Discharge Patient EKG Vital Signs Refresh vitals and sections below: Problem List/Past Medical History Ongoing Anxiety Depression Low serum potassium level Seasonal nasal allergies Historical No qualifying data Procedure/Surgical History wisdom teeth Medications Inpatient Normal Saline Flush 0.9% injectable solution, 10 mL, IV Push, As Indicated, PRN Home hydrOXYzine hydrochloride 25 mg oral tablet, 25 mg= 1 tabs, Oral, q8hr, PRN Latuda 20 mg oral tablet, 20 mg= 1 tabs, Oral, Daily OXcarbazepine 150 mg oral tablet, 150 mg= 1 tabs, Oral, qAM OXcarbazepine 300 mg oral tablet, 300 mg= 1 tabs, Oral, HS (at bedtime) sertraline 100 mg oral tablet, 100 mg= 1 tabs, Oral, qAM traZODone 100 mg oral tablet, 100 mg= 1 tabs, Oral, HS (at bedtime) Allergies No Known Allergies No Known Medication Allergies Social History Alcohol Never Home/Environment Lives with Significant other. Sexual Sexually active: Yes. History of sexual abuse: No. Substance Abuse Denies All Tobacco Never (less than 100 in lifetime) Use:. Family History Cancer of colon: Father. Dementia: Grandfather (M). Diabetes: Grandfather (M). Stroke..: Grandfather (M). Thyroid disease: Mother. Diagnostic Results Electronically signed by Nakul Watkins MD 09/29/22 21:10 EDT Normal [facility] S Preg Qlon 09-29-2022 Serum Preg Negative Normal [facility] Comment on above: Result Comment: The hCG Combo Rapid Test has a sensitivity of 10 mIU/mL in serum and is capable of detecting as early as 1 day after the first missed menses. Performed By: #### S PTQ ####[address] [address] XR Chest 1 Viewon 09-29-2022 XR Chest 1 View EXAM: XR Chest 1 Vie w HISTORY: Chest pain, COMPARISON: 08/14/2022 TECHNIQUE: Frontal view of the chest. FINDINGS: No focal consolidations or pleural effusions. Cardiomediastinal silhouette is unremarkable. Visualized osseous structures are unremarkable. IMPRESSION: No acute disease. Final Dictated by: Rinku Hooper MD Dictated DT/TM: 09/29/2022 4:04 pm Signed by: Rinku Hooper MD Signed (Electronic Signature): 09/29/2022 4:05 pm (If Report Is Signed, Electronically Signed in Other Vendor System) Normal [facility] Discharge Instructionson Discharge Instructions [id number]:127 Normal [facility] Prescriptions/Work Noteson 0 09-24-2022 Prescriptions/Work Notes [id number]# 1.00CD:127 Normal [facility] XR wrist RT min 3V*on 2022 XR wrist RT min 3V* [facility] Main [address] [address] XRay Report Signed Patient: Rosangela Lindo MR#: [id number] : 1980 Acct:[id number] Age/Sex: 42 / F ADM Date: 09/23/22 Loc: XDUCLY Room: Type: [facility] Attending Dr: Sarai Mendoza APRN Copies to: Sarai Mendoza APRN Ordering Provider: Sarai Mendoza APRN Date of Service: 09/23/22 XR/XR hand RT min 3V*: RIGHT HAND PAIN ([id number]) XR/XR wrist RT min 3V*: Right wrist pain RIGHT HAND - 3 views right wrist 4 views REASON FOR EXAM: Patient fell one and a half weeks ago catching herself with right hand with arm behind her body. Continued pain. COMPARISON: None FINDINGS: No focal soft tissue abnormality. A questionable avulsion fracture possibly from the styloid process of the radius. This is only seen on the PA view of the hand. This is not clearly seen on the wrist imaging. No additional acute fractures are seen. Joint spaces appear maintained without bony erosions. XR/XR hand RT min 3V* IMPRESSION: A QUESTIONABLE AVULSION FRACTURE IS SEEN POSSIBLY FROM THE STYLOID PROCESS OF THE RADIUS. CORRELATION WITH AREA OF PAIN IS RECOMMENDED. Impression dictated by: Dami Torres Jr., D.OShalom09/23/2022 11:15 AM Dictation Location: [facility] D&R-12 Transcribed By: CHITO 09/23/22 1115 Dictated By: Dami Torres Jr, DO 09/23/22 1105 Signed By: 09/23/22 1115 [facility] ED Note-Physicianon 09-22-19 ED Note-Physician Chief Complaint R wrist pain History of Present Illness Patient presents to the ED with complaints of R wrist pain. She notes she recently slipped and injured her R wrist. She had an XR at that time. No fever. No paresthesia. No skin changes. No new injury. She notes pain with ROM in the R wrist, especially when using her hands at work. Review of Systems GENERAL: Negative for fever, chills EYES: Negative for acute changes NECK: Negative for pain CARDIOVASCULAR: Negative for chest pain RESPIRATORY: Negative for shortness of breath, cough ABDOMEN/GI: Negative for abdominal pain, nausea, vomiting, diarrhea BACK: Negative for pain MUSCULOSKELETAL: Negative for swelling SKIN: Negative for rash, discoloration NEURO: Negative for headache, focal weakness, acute numbness, acute tingling Physical Exam CONSTITUTIONAL: Patient is awake and alert HEAD: Normocephalic, atraumatic HEENT: Moist mucus membranes, oropharynx clear EYES: Pupils are equally round and reactive to light, lids and lashes normal, clear conjunctiva, non-icteric sclera. No drainage NECK: Trachea midline, external neck normal, supple, no nuchal rigidity or meningismus PULMONARY: Clear to auscultation bilaterally with equal sounds. Normal rate and effort CARDIOVASCULAR: Regular rate and rhythm. GASTROINTESTINAL: Soft, non-tender, normal bowel sounds, no rebound or guarding BACK: No flank tenderness SKIN: Warm and dry, no evidence of cellulitis. No petechiae MUSCULOSKELETAL: Extremities without acute deformity. No edema or tenderness. No midline C/T/L spine tenderness. Normal distal pulses and cap refill. R arm is soft. No wrist or snuff box tenderness. NEUROLOGIC: No gross motor or sensory deficits. Normal tone. Normal coordination. PSYCHIATRIC: Normal mood and affect Vitals & Measurements T: 37.2 ?C (Oral) HR: 82 (Peripheral) RR: 18 BP: 124/90 SpO2: 97% WT: 82.5 kg (Dosing) Additional Vitals No qualifying data available. Procedure No qualifying data available. ASA Documentation Medical Decision Making Appears well, NAD. ED return precautions reviewed and follow up plan discussed. Assessment/Plan 1. Right wrist pain Ordered: Return to Work/School Orders: [id number] - ED Professional Level 3 Discharge Patient Refresh vitals and sections below: Problem List/Past Medical History Ongoing Anxiety Depression Low serum potassium level Seasonal nasal allergies Historical No qualifying data Procedure/Surgical History wisdom teeth Medications Inpatient No active inpatient medications Home hydrOXYzine hydrochloride 25 mg oral tablet, 25 mg= 1 tabs, Oral, q8hr, PRN Latuda 20 mg oral tablet, 20 mg= 1 tabs, Oral, Daily OXcarbazepine 150 mg oral tablet, 150 mg= 1 tabs, Oral, qAM OXcarbazepine 300 mg oral tablet, 300 mg= 1 tabs, Oral, HS (at bedtime) sertraline 100 mg oral tablet, 100 mg= 1 tabs, Oral, qAM traZODone 100 mg oral tablet, 100 mg= 1 tabs, Oral, HS (at bedtime) Allergies No Known Allergies No Known Medication Allergies Social History Alcohol Never Home/Environment Lives with Significant other. Sexual Sexually active: Yes. History of sexual abuse: No. Substance Abuse Denies All Tobacco Never (less than 100 in lifetime) Use:. Family History Cancer of colon: Father. Dementia: Grandfather (M). Diabetes: Grandfather (M). Stroke..: Grandfather (M). Thyroid disease: Mother. Diagnostic Results Electronically signed by RhettLuisa arredondo DO 09/21/22 08:55 EDT Normal [facility] ED Clinical Summaryon 2022 ED Clinical Summary [place] [address] ED Clinical Summary Person Information Name: Rosangela Lindo Cristy/[facility]_[place] Age: 42 Years : 1980 Sex: Female PCP: Marital Status: Phone: Race: White Ethnicity: Not or Language: Luxembourger Visit Reason: Wrist pain-swelling; Wrist Pain Acuity: 4 Enc Type: Emergency Med Service: Emergency Medicine Arrival: 09/20/2022 13:47:00 Discharge: 09/20/2022 14:32:00 LOS: 000 00:45 Checkin: 09/20/2022 13:47:00 Checkout: 09/20/2022 14:32:00 Dispo Type: Home or Self Care Address: [address] [place] [address] Provider Notes: Diagnosis: 1:Right wrist pain Problems No Problems Documented Smoking Status: Functional Status: Sensory Deficits: History of Falls: Mobility Assistance Prior to Admission: ADLs: Current Level of Assistance for Self-Care/Mobility: Cognitive Status: Allergies No Known Medication Allergies No Known Allergies Laboratory or Other Results This Visit (last charted value for your 09/20/2022 visit) No Laboratory or Other Results This Visit Measurements: Height: Weight: 82.5 kg Blood Pressure: /90 mmHg BMI: Procedures No Procedures Documented Immunizations No Immunizations Documented This Visit Final Med List: Medications that have not changed Other Medications hydrOXYzine (hydrOXYzine hydrochloride 25 mg oral tablet) 1 Tabs Oral (given by mouth) every 8 hours as needed as needed for anxiety. Last Dose: ____ lurasidone (Latuda 20 mg oral tablet) 1 Tabs Oral (given by mouth) every day. Last Dose: ____ OXcarbazepine (OXcarbazepine 150 mg oral tablet) 1 Tabs Oral (given by mouth) once a day (in the morning). Last Dose: ____ OXcarbazepine (OXcarbazepine 300 mg oral tablet) 1 Tabs Oral (given by mouth) once a day (at bedtime). Last Dose: ____ sertraline (sertraline 100 mg oral tablet) 1 Tabs Oral (given by mouth) once a day (in the morning). Last Dose: ____ traZODone (traZODone 100 mg oral tablet) 1 Tabs Oral (given by mouth) once a day (at bedtime). Last Dose: ____ Other Medications hydrOXYzine (hydrOXYzine hydrochloride 25 mg oral tablet) 1 Tabs Oral (given by mouth) every 8 hours as needed as needed for anxiety. lurasidone (Latuda 20 mg oral tablet) 1 Tabs Oral (given by mouth) every day. OXcarbazepine (OXcarbazepine 150 mg oral tablet) 1 Tabs Oral (given by mouth) once a day (in the morning). OXcarbazepine (OXcarbazepine 300 mg oral tablet) 1 Tabs Oral (given by mouth) once a day (at bedtime). sertraline (sertraline 100 mg oral tablet) 1 Tabs Oral (given by mouth) once a day (in the morning). traZODone (traZODone 100 mg oral tablet) 1 Tabs Oral (given by mouth) once a day (at bedtime). Care Team Members: Attending Physician: Luisa Delaney DO Consulting Physician: Referring Physician: Provider Role Assigned Unassigned Betsy Harris ED Nurse 09/20/2022 13:47:50 Luisa Delaney DO ED Provider 09/20/2022 13:49:45 Follow up: With: Address: When: Todd Sandoval [address] [place] [address] [place] [address] [phone] Business (1) Within 3 to 5 days With: Address: When: Roosevelt Anderson [address] [facility], [address], [address] [place] [address] [phone] Business (1) Within 2 to 4 days Patient Education Information: Wrist Sprain; Self-Care for Strains and Sprains [facility] Poison Help line: . [facility] Health Hotline: [place] Tobacco Quit Line: [facility] ([place], [place]) [address]: [phone] [place], [place]) [address]: [phone] [facility] [address] [place], [place]: [phone] [facility] Consent for Treatmenton 08-31 Consent for Treatment [id number] .[id number]:127 Normal [facility] Discharge Instructionson Discharge Instructions [id number] .[id number]:127 Normal [facility] ED Clinical Summaryon 2022 ED Clinical Summary Normal [facility] ED Note-Physicianon 09-17-19 ED Note-Physician [facility] Comment on above: Result Comment: Elec tronically Signed By: Grant Dos Santos DO\ludin\Date and Time Signed: 09/16/22 07:32 EDT ED Patient Education Noteon 09-16-2022 ED Patient Education Note Normal [facility] ED Patient Summaryon 023 ED Patient Summary Normal [facility] Prescriptions/Work Noteson 0 09-16-2022 Prescriptions/Work Notes [id number] .[id number]:127 Normal [facility] .Fentanyl Scrn wo Conf,Uron 09-12-2022 Ur Fentanyl Scrn Negative Normal NEG <1.0 [facility] Comment on above: Performed By: #### C [id number] #### [place] [address] Ur Fentanyl Scrn Qnt 0.70 ng/mL Normal <=0.99 [facility] Comment on above: Performed By: #### C [id number] #### [place] [address] .UA Microscp 09-12-2022 UA Bacteria Present Abnormal Absent [facility] Comment on above: Performed By: #### . Urinalysis Microscopic Man #### [place] [address] UA RBC Qual 1-4 Normal 0 - 5 [facility] Comment on above: Performed By: #### . Urinalysis Microscopic Man #### [place] [address] UA Squepi Cells Qual 15-29 Normal 0 - 29 [facility] Comment on above: Performed By: #### . Urinalysis Microscopic Man #### [place] [address] UA WBC Qual 5-9 Abnormal 0 - 5 [facility] Comment on above: Performed By: #### . Urinalysis Microscopic Man #### [place] [address] .eGFRon 09-12-2022 GFR/1.73 sq M.predicted MDRD (S/P/Bld) [Vol rate/Area] mL/min/{1.73_m2} Normal >=60 [facility] Comment on above: Order Comment: Order added by Discern rule Result Comment: [facility] Laboratories have implemented the eGFR calculation approach that does not have a coefficient for race and that conforms to the NKF-ASN Task Force Recommendations. Stages of Chronic Kidney Disease GFR Stage 3a Mild to moderate loss of kidney function 59 to 45 Stage 3b Moderate to severe loss of kidney function 44 to 33 Stage 4 Severe loss of kidney function 29 to 15 Stage 5 Kidney failure Less than 15 GFR calculated using the CKD-Epi Creatinine Equation (2020): eGFR = 142 X min(SCr/?, 1)? X max(SCr /?, 1)-1.200 X 0.9938Age X 1.012 [if female] Abbreviations/Units: eGFR (estimated glomerular filtration rate) = mL/min/1.73 m2 SCr (standardized serum creatinine) = mg/dL ? = 0.7 (females) or 0.9 (males) ? = -0.241 (females) or -0.302 (males) min = indicates the minimum of SCr/? or 1 max = indicates the maximum of SCr/? or 1 Age = years Performed By: #### C [id number] #### [address] [address] CBC w/ Diffon 09-12-2022 Erythrocyte distribution width (RBC) [Ratio] 14.6 % Normal 11.6-14.8 [facility] Comment on above: Performed By: #### A LC #### [address] [address] Hematocrit (Bld) [Volume fraction] 34.1 % Low 36.0-46.0 [facility] Comment on above: Performed By: #### A LC #### [facility] [address] [place] [address] Hemoglobin (Bld) [Mass/Vol] 11.2 g/dL Low 12.0-16.0 [facility] Comment on above: Performed By: #### A LC #### [facility] [address] [place] [address] MCH (RBC) [Entitic mass] 26.9 pg Low 27.0-35.0 [facility] Comment on above: Performed By: #### A LC #### [facility] [address] [place] [address] MCHC 32.9 % Normal 31.0-37.0 [facility] Comment on above: Performed By: #### A LC #### [address] [address] MCV (RBC) [Entitic vol] 81.9 fL Normal 80.0-100.0 [facility] Comment on above: Performed By: #### A LC #### [address] [address] Platelet 361 x10*3/mcL Normal 150-450 [facility] Comment on above: Performed By: #### A LC #### [address] [address] Platelet mean volume (Bld) [Entitic vol] 7.1 fL Low 7.5-11.5 [facility] Comment on above: Performed By: #### A LC #### [address] [address] RBC 4.17 x10*6/mcL Normal 3.80-5.20 [facility] Comment on above: Performed By: #### A LC #### [address] [address] WBC 4.6 x10*3/mcL Normal 4.5-11.0 [facility] Comment on above: Performed By: #### A LC #### [address] [address] CMPon 09-12-2022 Albumin [Mass/Vol] 3.6 g/dL Low 3.7-5.3 [facility] Comment on above: Performed By: #### . Urinalysis Microscopic Man #### [place] [address] Albumin/Globulin [Mass ratio] 1.3 {ratio} Normal 1.1-2.2 [facility] Comment on above: Performed By: #### . Urinalysis Microscopic Man #### [place] [address] Alk Phos 69 IU/L Normal 34-104 [facility] Comment on above: Performed By: #### . Urinalysis Microscopic Man #### [place] [address] ALT [Catalytic activity/Vol] 11 U/L Normal 7-52 [facility] Comment on above: Performed By: #### . Urinalysis Microscopic Man #### [place] [address] Anion gap [Moles/Vol] 8 mmol/L Normal 7-17 [facility] Comment on above: Performed By: #### . Urinalysis Microscopic Man #### [place] [address] AST [Catalytic activity/Vol] 10 U/L Low 13-39 [facility] Comment on above: Performed By: #### . Urinalysis Microscopic Man #### [place] [address] Bili Total 0.3 mg/dL Normal 0.3-1.0 [facility] Comment on above: Performed By: #### . Urinalysis Microscopic Man #### [place] [address] Calcium [Mass/Vol] 8.6 mg/dL Normal 8.6-10.3 [facility] Comment on above: Performed By: #### . Urinalysis Microscopic Man #### [place] [address] Chloride 106 IU/L Normal 98-107 [facility] Comment on above: Performed By: #### . Urinalysis Microscopic Man #### [place] [address] CO2 [Moles/Vol] 25 mmol/L Normal 21-31 [facility] Comment on above: Performed By: #### . Urinalysis Microscopic Man #### [place] [address] Creatinine [Mass/Vol] 0.66 mg/dL Normal 0.60-1.20 [facility] Comment on above: Performed By: #### . Urinalysis Microscopic Man #### [address] [address] Glucose [Mass/Vol] 92 mg/dL Normal 70-99 [facility] Comment on above: Performed By: #### . Urinalysis Microscopic Man #### [place] [address] Potassium [Moles/Vol] 4.0 mmol/L Normal 3.4-4.8 [facility] Comment on above: Performed By: #### . Urinalysis Microscopic Man #### [address] [address] Protein [Mass/Vol] 6.4 g/dL Normal 6.0-8.3 [facility] Comment on above: Performed By: #### . Urinalysis Microscopic Man #### [address] [address] Sodium [Moles/Vol] 135 mmol/L Low 136-145 [facility] Comment on above: Performed By: #### . Urinalysis Microscopic Man #### [place] [address] Urea nitrogen [Mass/Vol] 9 mg/dL Normal 7-25 [facility] Comment on above: Performed By: #### . Urinalysis Microscopic Man #### [address] [address] Urea nitrogen/Creatinine [Mass ratio] 13.6 mg/mg Normal 10.0-20.0 [facility] Comment on above: Performed By: #### . Urinalysis Microscopic Man #### [place] [address] COV19 Rapidon 09-12-2022 LAB ONLY Result Called? No Normal B [facility] Comment on above: Performed By: #### C BC #### [address] [address] Reason for Rapid Test COVID Exposure Normal [facility] Comment on above: Performed By: #### C BC #### [place] [address] SARS-CoV-2 (COVID-19) RNA CHANTEL+probe Ql (Unsp spec) Negative Normal Negative [facility] Comment on above: Result Comment: The 2019 novel coronavirus SARS-CoV-2 target nucleic acids are not detected. This test is for the detection of SARS-CoV-2 RNA. Positive results are indicative of active infection with SARS-CoV-2. Positive results do not rule out bacterial infection or co-infection with other viruses. Negative results should be treated as presumptive and, if inconsistent with clinical signs and symptoms or necessary for patient management, should be tested with an alternative molecular assay.Negative results do not preclude SARS-CoV-2 infection and should not be used as the sole basis for treatment or other patient management decisions. Clinical correlation with patient history and other diagnostic information is necessary to determine patient infection status. ADDITIONAL INFORMATION: Testing was performed using the ID NOW COVID-19 test by [employer], which has received Emergency Use Authorization (EUA) by the U.S. Food and Drug Administration. The [employer] ID NOW COVID-19 test performs best when patients are tested within the first 7 days of symptom onset. Results should be interpreted with caution for asymptomatic patients or those tested outside the 7 day target. Refer to CDC guidelines for further testing algorithms. Fact sheets for this Emergency Use Authorization (EUA) assay can be found at the following links: Fact Sheet for HealthCare Providers: https://www.fda.gov/media/367198/download Fact Sheet for Patients: https://www.fda.gov/media/509904/download Performed By: #### C BC #### [address] [address] Diff Autoon 09-12-2022 Baso Absolute 0.0 x10*3/mcL Normal 0.0-0.2 [facility] Comment on above: Performed By: #### . Automated Diff ####[address] [address] Basophils/100 WBC (Bld) 0.7 % Normal 0.0-1.5 B [facility] Comment on above: Performed By: #### . Automated Diff ####[address] [address] Eos Absolute 0.1 x10*3/mcL Normal 0.0-0.4 [facility] Comment on above: Performed By: #### . Automated Diff ####[address] [address] Eosinophils/100 WBC (Bld) 1.4 % Normal 0.0-5.4 [facility] Comment on above: Performed By: #### . Automated Diff ####[address] [address] Lymph Absolute 1.4 x10*3/mcL Normal 1.0-4.8 [facility] Comment on above: Performed By: #### . Automated Diff ####[address] [address] Lymphocytes/100 WBC (Bld) 31.1 % Normal 27.2-40.8 [facility] Comment on above: Performed By: #### . Automated Diff ####[place] [address] [place]o Absolute 0.3 x10*3/mcL Normal 0.1-1.1 [facility] Comment on above: Performed By: #### . Automated Diff ####[place] [address] Monocytes/100 WBC (Bld) 6.3 % Normal 3.7-11.9 B [facility] Comment on above: Performed By: #### . Automated Diff ####[place] [address] Neutro Absolute 2.8 x10*3/mcL Normal 1.8-7.7 [facility] Comment on above: Performed By: #### . Automated Diff ####[place] [address] Neutro Auto 60.5 % Normal 47.2-70.8 [facility] Comment on above: Performed By: #### . Automated Diff ####[address] [address] ED Clinical Summaryon 2022 ED Clinical Summary [place] [address] ED Clinical Summary Person Information Name: Rosangela Lindo Cristy/[facility] Age: 42 Years : 1980 Sex: Female PCP: Marital Status: Phone: Race: White Ethnicity: Not or Language: Luxembourger Visit Reason: Suicidal thoughts; Nasal drainage; Throat pain - Adult; nasal congestion Acuity: 2 Enc Type: Emergency Med Service: Emergency Medicine Arrival: 09/12/2022 09:44:00 Discharge: 09/12/2022 12:18:00 LOS: 000 02:34 Checkin: 09/12/2022 09:44:00 Checkout: 09/12/2022 12:18:00 Dispo Type: Home or Self Care Address: [address] [facility] [address] Provider Notes: History of Present Illness ? Patient presents with a chief complaint?of congestion for 1 week,?she also states that her throat has been scratchy.? She also states that she has thoughts of not wanting to be around .? She has a history of depression and anxiety. Review of Systems Constitutional: [No fevers, chills, sweats] Eye: [No recent visual problems] ENMT: [No ear pain, nasal congestion, sore throat] Respiratory: [No shortness of breath, cough] Cardiovascular: [No Chest pain, palpitations, syncope] Gastrointestinal: [No nausea, vomiting, diarrhea] Genitourinary: [No hematuria] ? Psychiatry:?Depressio n Physical Exam General: [Alert and oriented, well nourished, no acute distress]. Eye: [PERRL, EOMI, normal conjunctiva]. HENT: [Normocephalic, clear tympanic membranes, normal hearing, moist oral mucosa, no scleral icterus, no sinus tenderness]. Neck: [Supple, non-tender, no carotid bruits, no JVD, no lymphadenopathy]. Lungs: [Clear to auscultation and percussion, non-labored respiration]. Heart: [Normal rate, regular rhythm, no murmur, gallop or edema]. Abdomen: [Soft, non-tender, non-distended, normal bowel sounds, no masses]. Musculoskeletal: [Normal range of motion and strength, no tenderness or swelling]. Skin: [Skin is warm, dry and pink, no rashes or lesions]. Neurologic: [Awake, alert, and oriented X3, CN II-XII intact]. Psychiatric: [Cooperative, appropriate mood and affect]. Diagnosis: 1:UTI (urinary tract infection); 2:Major depression Problems No Problems Documented Smoking Status: Functional Status: Sensory Deficits: History of Falls: Mobility Assistance Prior to Admission: ADLs: Current Level of Assistance for Self-Care/Mobility: Cognitive Status: Allergies No Known Medication Allergies No Known Allergies Laboratory or Other Results This Visit (last charted value for your 09/12/2022 visit) Hematology 09/12/2022 10:30 AM WBC: 4.6 x10 RBC: 4.17 x10 Neutro Auto: 60.5 % -- Normal range between ( 47.2 and 70.8 ) Lymph Auto: 31.1 % -- Normal range between ( 27.2 and 40.8 ) [place]o Auto: 6.3 % -- Normal range between ( 3.7 and 11.9 ) Eos Auto: 1.4 % -- Normal range between ( 0.0 and 5.4 ) Basophil Auto: 0.7 % -- Normal range between ( 0.0 and 1.5 ) Baso Absolute: 0.0 x10 MCV: 81.9 fL -- Normal range between ( 80.0 and 100.0 ) MCHC: 32.9 % -- Normal range between ( 31.0 and 37.0 ) Lymph Absolute: 1.4 x10 Hct: 34.1 % -- Normal range between ( 36.0 and 46.0 ) [place] Absolute: 0.3 x10 MCH: 26.9 pg -- Normal range between ( 27.0 and 35.0 ) Neutro Absolute: 2.8 x10 Hgb: 11.2 g/dL -- Normal range between ( 12.0 and 16.0 ) Mean Platelet Volume: 7.1 fL -- Normal range between ( 7.5 and 11.5 ) Platelet: 361 x10 Eos Absolute: 0.1 x10 RDW: 14.6 % -- Normal range between ( 11.6 and 14.8 ) Urinalysis 09/12/2022 10:08 AM UA Color: Yellow UA Urobilinogen: 0.2 mg/dL UA Bili: Negative UA Ketones: Negative mg/dL UA Leukocyte Esterase: Trace UA Nitrite: Negative UA Glucose: Negative mg/dL UA Bacteria: Present /HPF UA Protein: Negative mg/dL UA Blood: Trace-Intact UA Spec Grav: 1.020 -- Normal range between ( 1.003 and 1.035 ) UA pH: 6.0 UA Clarity: Cloudy UA Source: Clean Catch UA WBC Qual: 5-9 /HPF UA RBC Qual: 1-4 /HPF UA Squepi Cells Qual: 15-29 /HPF Chemistry 09/12/2022 10:30 AM Creatinine Lvl: 0.66 mg/dL -- Normal range between ( 0.60 and 1.20 ) BUN: 9 mg/dL -- Normal range between ( 7 and 25 ) Glucose Lvl: 92 mg/dL -- Normal range between ( 70 and 99 ) Potassium Lvl: 4.0 mmol/L -- Normal range between ( 3.4 and 4.8 ) AST: 10 IU/L -- Normal range between ( 13 and 39 ) ALT: 11 IU/L -- Normal range between ( 7 and 52 ) Sodium Lvl: 135 mmol/L -- Normal range between ( 136 and 145 ) Calcium Lvl: 8.6 mg/dL -- Normal range between ( 8.6 and 10.3 ) Albumin Lvl: 3.6 g/dL -- Normal range between ( 3.7 and 5.3 ) Total Protein: 6.4 g/dL -- Normal range between ( 6.0 and 8.3 ) Bili Total: 0.3 mg/dL -- Normal range between ( 0.3 and 1.0 ) Alk Phos: 69 IU/L -- Normal range between ( 34 and 104 ) Chloride: 106 IU/L -- Normal range between ( 98 and 107 ) CO2: 25 mmol/L -- Normal ra (more content not included)... Normal [facility] ED Note-Nursingon 09-12-2022 ED Note-Nursing Pt stated during intake assessment that she has had thoughts on and off of not wanting to be around anymore . Pt denies having any thought of suicide at this time. Pt wants to be evaluated by mental health prescreener. Electronically signed by Kevin Ramos 09/12/22 10:13 EDT Normal [facility] ED Note-Physicianon 09-13-19 ED Note-Physician Chief Complaint Pt complains of nasal congestion for the past week and a half and a scratchy throught . History of Present Illness Patient presents with a chief complaint of congestion for 1 week, she also states that her throat has been scratchy. She also states that she has thoughts of not wanting to be around . She has a history of depression and anxiety. Review of Systems Constitutional: [No fevers, chills, sweats] Eye: [No recent visual problems] ENMT: [No ear pain, nasal congestion, sore throat] Respiratory: [No shortness of breath, cough] Cardiovascular: [No Chest pain, palpitations, syncope] Gastrointestinal: [No nausea, vomiting, diarrhea] Genitourinary: [No hematuria] Psychiatry: Depression Physical Exam General: [Alert and oriented, well nourished, no acute distress]. Eye: [PERRL, EOMI, normal conjunctiva]. HENT: [Normocephalic, clear tympanic membranes, normal hearing, moist oral mucosa, no scleral icterus, no sinus tenderness]. Neck: [Supple, non-tender, no carotid bruits, no JVD, no lymphadenopathy]. Lungs: [Clear to auscultation and percussion, non-labored respiration]. Heart: [Normal rate, regular rhythm, no murmur, gallop or edema]. Abdomen: [Soft, non-tender, non-distended, normal bowel sounds, no masses]. Musculoskeletal: [Normal range of motion and strength, no tenderness or swelling]. Skin: [Skin is warm, dry and pink, no rashes or lesions]. Neurologic: [Awake, alert, and oriented X3, CN II-XII intact]. Psychiatric: [Cooperative, appropriate mood and affect]. Vitals & Measurements T: 37.0 ?C (Oral) HR: 79 (Peripheral) HR: 79 (Monitored) RR: 18 BP: 130/75 SpO2: 99% HT: 157.5 cm WT: 82.3 kg WT: 82.3 kg (Dosing) Additional Vitals No qualifying data available. Procedure No qualifying data available. ASA Documentation Medical Decision Making Patient seen and evaluated for URI type symptoms likely viral in nature. Screening labs all reassuring. Incidental findings include UTI and we will initiate Keflex. Patient does have major depression and we did have her consult with our behavioral health specialist. They have decided that patient does not meet criteria for admission, safety plan, discharge home and outpatient follow-up. Assessment/Plan 1. UTI (urinary tract infection) 2. Major depression Orders: cephalexin, 1 caps, Oral, q12hr, X 7 days, # 14 caps, 0 Refill(s), 09/19/22 11:16:00 EDT, Pharmacy: [id number] .[place] [address] - ED Professional Level 4 Collect and Hold - Urine Regular Diet Refresh vitals and sections below: Problem List/Past Medical History Ongoing Anxiety Depression Low serum potassium level Seasonal nasal allergies Historical No qualifying data Procedure/Surgical History wisdom teeth Medications Inpatient No active inpatient medications Home hydrOXYzine hydrochloride 25 mg oral tablet, 25 mg= 1 tabs, Oral, q8hr, PRN Latuda 20 mg oral tablet, 20 mg= 1 tabs, Oral, Daily OXcarbazepine 150 mg oral tablet, 150 mg= 1 tabs, Oral, qAM OXcarbazepine 300 mg oral tablet, 300 mg= 1 tabs, Oral, HS (at bedtime) sertraline 100 mg oral tablet, 100 mg= 1 tabs, Oral, qAM traZODone 100 mg oral tablet, 100 mg= 1 tabs, Oral, HS (at bedtime) Allergies No Known Allergies No Known Medication Allergies Social History Alcohol Never Home/Environment Lives with Significant other. Sexual Sexually active: Yes. History of sexual abuse: No. Substance Abuse Denies All Tobacco Never (less than 100 in lifetime) Use:. Family History Cancer of colon: Father. Dementia: Grandfather (M). Diabetes: Grandfather (M). Stroke..: Grandfather (M). Thyroid disease: Mother. Diagnostic Results Electronically signed by Austin Grey MD 09/12/22 11:49 EDT Normal [facility] Ethanolon 09-12-2022 Ethanol, Plasma <10 Normal <=10 [facility] Comment on above: Result Comment: To c onvert mg/dL to g/dL, divide result by 1,000. Legal limit of intoxication is 80 mg/dL (0.08 g/dL). Performed By: #### . Urinalysis Microscopic Auto #### [address] [address] Flu A&B Ag Rapidon Influenza A Ag Negative Normal Negative [facility] Comment on above: Performed By: #### C [id number] #### [address] [address] Influenza B Ag Negative Normal Negative [facility] Comment on above: Result Comment: The [employer] Influenza A+B Card 2 detects both viable and non-viable influenza A and B. Test performance depends on the amount of virus (antigen) in the specimen and may or may not compare with cell culture results performed on the same specimen. A negative test result does not exclude the infection with influenza A and/or B. Therefore, the results obtained with the [employer] BinaxNow Influenza A+B Test should be used in conjunction with clinical findings to make an accurate diagnosis. Additional testing is required to differentiate any specific influenza A+B subtypes or strains, in consultation with state or local public health departments. Performed By: #### C [id number] #### [address] [address] S Preg Qlon 09-12-2022 Serum Preg Negative Normal [facility] Comment on above: Result Comment: The hCG Combo Rapid Test has a sensitivity of 10 mIU/mL in serum and is capable of detecting as early as 1 day after the first missed menses. Performed By: #### S PTQ ####[address] [address] TSHon 09-12-2022 TSH Qn 1.94 m[IU]/L Normal 0.45-5.33 [facility] Comment on above: Result Comment: Refe rence Ranges for individuals from to 18 years of age were obtained from The Brooke Plascencia Handbook (20 ed) published by [facility]. Reference Ranges for Females: Females, 1st Trimester 0.05 ? 3.7 uIU/mL Females, 2nd Trimester 0.31 ? 4.35 uIU/mL Females, 3rd Trimester 0.41 ? 5.18 uIU/mL Performed By: #### C [id number] #### [address] [address] UA w Culture if Ind Leana Color (U) Yellow Normal [facility] Comment on above: Performed By: #### . Urinalysis Microscopic Auto #### [place] [address] Glucose (U) [Mass/Vol] Negative Normal Negative [facility] Comment on above: Performed By: #### . Urinalysis Microscopic Auto #### [place] [address] Ketones Ql (U) Negative Normal Negative [facility] Comment on above: Performed By: #### . Urinalysis Microscopic Auto #### [place] [address] UA Blood Trace-Intact Abnormal Negative [facility] Comment on above: Performed By: #### . Urinalysis Microscopic Auto #### [place] [address] UA Clarity Cloudy Normal [facility] Comment on above: Performed By: #### . Urinalysis Microscopic Auto #### [place] [address] UA Leukocyte Esterase Trace Abnormal Negative [facility] Comment on above: Performed By: #### . Urinalysis Microscopic Auto #### [place] [address] UA Nitrite Negative Normal Negative [facility] Comment on above: Performed By: #### . Urinalysis Microscopic Auto #### [place] [address] UA pH 6.0 Normal 4.5 - 7.8 [facility] Comment on above: Performed By: #### . Urinalysis Microscopic Auto #### [place] [address] UA Protein Negative Normal Negative [facility] Comment on above: Performed By: #### . Urinalysis Microscopic Auto #### [place] [address] UA Source Clean Catch Normal [facility] Comment on above: Performed By: #### . Urinalysis Microscopic Auto #### [place] [address] UA Spec Grav 1.020 Normal 1.003-1.035 [facility] Comment on above: Performed By: #### . Urinalysis Microscopic Auto #### [place] [id number] UA Urobilinogen 0.2 mg/dL Normal 0.2 - 1.0 [facility] Comment on above: Performed By: #### . Urinalysis Microscopic Auto #### [place] [address] Urobilinogen (U) [Mass/Vol] Negative Normal Negative [facility] Comment on above: Performed By: #### . Urinalysis Microscopic Auto #### [place] [address] UDS Compon 09-12-2022 UA pH 6.0 Normal 4.5 - 7.8 [facility] Comment on above: Performed By: #### . Urinalysis Microscopic Man #### [place] [address] UA Spec Grav 1.020 Normal 1.003-1.035 [facility] Comment on above: Performed By: #### . Urinalysis Microscopic Man #### [place] [address] Creatinine [Mass/Vol] 94.8 mg/dL Normal [facility] Comment on above: Performed By: #### . Urinalysis Microscopic Man #### [place] [address] Ur Amph Scrn Negative Normal NEG = <1000 [facility] Comment on above: Performed By: #### . Urinalysis Microscopic Man #### [place] [address] Ur Lacey Scrn Negative Normal NEG = <200 [facility] Comment on above: Performed By: #### . Urinalysis Microscopic Man #### [place] [address] Ur Benzodia Scrn Negative Normal NEG = <200 [facility] Comment on above: Performed By: #### . Urinalysis Microscopic Man #### [place] [address] Ur Cannab Scrn Negative Normal NEG = <50 [facility] Comment on above: Performed By: #### . Urinalysis Microscopic Man #### [place] [address] Ur Cocaine Scrn Negative Normal NEG = <300 [facility] Comment on above: Performed By: #### . Urinalysis Microscopic Man #### [place] [address] Ur Methadone Scn Negative Normal NEG = <300 [facility] Comment on above: Performed By: #### . Urinalysis Microscopic Man #### [place] [address] Ur Opiate Scrn Negative Normal NEG = <300 [facility] Comment on above: Performed By: #### . Urinalysis Microscopic Man #### [place] [address] Ur Oxy Screen Negative Normal NEG = <100 [facility] Comment on above: Performed By: #### . Urinalysis Microscopic Man #### [place] [address] Ur Oxy Scrn Qnt <0 Normal <=99 [facility] Comment on above: Performed By: #### . Urinalysis Microscopic Man #### [place] [address] Ur PCP Scrn Negative Normal NEG = <25 [facility] Comment on above: Performed By: #### . Urinalysis Microscopic Man #### [place] [address] XR WRIST RIGHT (MIN 3 VIEWS) on 09-09-2022 XR WRIST RIGHT (MIN 3 VIEWS) XR WRIST RIGHT (MIN 3 VIEWS) CLINICAL INFORMATION: Right wrist pain. Fell on wrist one week ago. COMPARISON: No prior study. TECHNIQUE: Standard views of the wrist were obtained FINDINGS: No acute fracture or dislocation is seen.. There is no foreign body... No soft tissue swelling seen. IMPRESSION: Normal wrist. This report has been created using voice recognition software. It may contain minor errors which are inherent in voice recognition technology. Final report electronically signed by Dr. Dom Suarez on 09/09/2022 4:44 PM Interpreted by: Dom Suarez MD Signed by: Dom Suarez MD 09/09/22 Final result Normal [facility] ED Clinical Summaryon 2022 ED Clinical Summary [facility] [address] [place], [place] [id number] ED Clinical Summary Person Information Name: Rosangela Lindo/[facility]_[place] Age: 42 Years : 1980 Sex: Female PCP: Marital Status: Phone: Race: White Ethnicity: Not or Language: Luxembourger Visit Reason: Nasal drainage; Nausea; Cough; Nausea Acuity: 4 Enc Type: Emergency Med Service: Emergency Medicine Arrival: 09/06/2022 06:34:21 Discharge: 09/06/2022 06:58:00 LOS: 000 00:24 Checkin: 09/06/2022 06:34:21 Checkout: 09/06/2022 06:58:00 Dispo Type: Home or Self Care Address: [address] [place] [address] Provider Notes: History of Present Illness Patient tells me she has been sick for a week to a week and a half with sinus congestion and headaches.? She has been very congested.? She has had an occasional cough without phlegm production.? She has had occasional nausea but no vomiting or diarrhea.? She does not think she has had fever.? Denies earache and sore throat.? She also denies chest pain and abdominal pain. She denies exposure to ill people. Review of Systems GENERAL: [Negative for weakness, malaise, and fever] EYES: [Negative for injury, pain, redness, discharge] ENT: [Negative for injury, pain , sore throat and positive sinus pressure and discharge] NECK: [Negative for injury, pain, swelling, and stiffness] CARDIOVASCULAR: [Negative for chest pain, palpitations] RESPIRATORY: [Negative for shortness of breath, positive occasional cough, negative wheezing, and pleuritic chest pain] ABDOMEN/GI: [Negative for pain, nausea, vomiting] BACK: [Negative for injury or bruising] : [Negative for injury, bleeding, discharge, frequency, hematuria, urgency] MUSCULOSKELETAL: [Negative for arthralgias, injury and deformity] SKIN: [Negative for injury, rash, discoloration] NEURO: [Negative for focal weakness, numbness, tingling, and seizure] ALLERGY/IMMUNOLOGY: [Negative for hives, rash, and new allergies] ENDOCRINE: [Negative for neck swelling, polydipsia, polyuria, marked weight changes, heat/cold intolerance] HEMATOLOGIC/LYMPHATIC : [Negative for swollen lymph nodes, abnormal bleeding, and unusual bruising] Physical Exam CONSTITUTIONAL: [no apparent distress, well appearing] SKIN: [warm, dry, no jaundice, hives or petechiae] EYES: [pupils are equally round, extraocular movements intact without nystagmus, clear conjunctiva, non-icteric sclera] HENT: [normocephalic, atraumatic, moist mucus membranes, oropharynx clear without exudates some nasal congestion] NECK: [Nontender and supple with no nuchal rigidity, no lymphadenopathy, full range of motion] PULMONARY: [clear to auscultation without wheezes, rhonchi, or rales, normal excursion, no accessory muscle use and no stridor] CARDIOVASCULAR: [regular rate, rhythm, normal S1 and S2. No appreciated murmurs. Strong radial pulses with intact distal perfusion] GASTROINTESTINAL: [soft, non-tender, non-distended, no palpable masses, no rebound or guarding] GENITOURINARY: [No costovertebral angle tenderness to palpation] LYMPHATICS: [no edema in lower extremities, no lymphadenopathy] MUSCULOSKELETAL: [Extremities are nontender to palpation and have no gross deformity, no edema, redness, or swelling] NEUROLOGIC: [alert and oriented x 3, GCS 15, normal mentation and speech. Moves all extremities x 4 without motor or sensory deficit, gait is stable without ataxia] PSYCHIATRIC: [normal mood and affect, thought process is clear and linear] Reexamination/Reevalu ation unchanged Diagnosis: 1:Sinusitis Problems No Problems Documented Smoking Status: Smoking Status Never (less than 100 in lifetime) Functional Status: Sensory Deficits: History of Falls: Mobility Assistance Prior to Admission: ADLs: Current Level of Assistance for Self-Care/Mobility: Cognitive Status: Allergies No Known Medication Allergies No Known Allergies Laboratory or Other Results This Visit (last charted value for your 09/06/2022 visit) No Laboratory or Other Results This Visit Measurements: Height: Weight: 82.3 kg Blood Pressure: /80 mmHg BMI: Procedures No Procedures Documented Immunizations No Immunizations Documented This Visit Final Med List: New Medications [id number], [address] [place], [place] [id number], [phone] predniSONE (predniSONE 20 mg oral tablet) 1 Tabs Oral (given by mouth) every day for 5 Days. Refills: 0. Last Dose: ____ Medications that have not changed Other Medications fluticasone nasal (Flonase 50 mcg/inh nasal spray) 1 Sprays Nasal (into the nose) 2 times a day. Refills: 0. Last Dose: ____ hydrOXYzine (hydrOXYzine hydrochloride 25 mg oral tablet) 1 Tabs Oral (given by mouth) every 8 hours as needed as needed for anxiety. Last Dose: ____ lurasidone (Latuda 20 mg oral tablet) (more content not included)... Normal [facility] ED Note-Physicianon 09-07-19 ED Note-Physician Chief Complaint Patient states she has had a cough, nausea, and congested for about two weeks now. History of Present Illness Patient tells me she has been sick for a week to a week and a half with sinus congestion and headaches. She has been very congested. She has had an occasional cough without phlegm production. She has had occasional nausea but no vomiting or diarrhea. She does not think she has had fever. Denies earache and sore throat. She also denies chest pain and abdominal pain. She denies exposure to ill people. Review of Systems GENERAL: [Negative for weakness, malaise, and fever] EYES: [Negative for injury, pain, redness, discharge] ENT: [Negative for injury, pain , sore throat and positive sinus pressure and discharge] NECK: [Negative for injury, pain, swelling, and stiffness] CARDIOVASCULAR: [Negative for chest pain, palpitations] RESPIRATORY: [Negative for shortness of breath, positive occasional cough, negative wheezing, and pleuritic chest pain] ABDOMEN/GI: [Negative for pain, nausea, vomiting] BACK: [Negative for injury or bruising] : [Negative for injury, bleeding, discharge, frequency, hematuria, urgency] MUSCULOSKELETAL: [Negative for arthralgias, injury and deformity] SKIN: [Negative for injury, rash, discoloration] NEURO: [Negative for focal weakness, numbness, tingling, and seizure] ALLERGY/IMMUNOLOGY: [Negative for hives, rash, and new allergies] ENDOCRINE: [Negative for neck swelling, polydipsia, polyuria, marked weight changes, heat/cold intolerance] HEMATOLOGIC/LYMPHATIC : [Negative for swollen lymph nodes, abnormal bleeding, and unusual bruising] Physical Exam CONSTITUTIONAL: [no apparent distress, well appearing] SKIN: [warm, dry, no jaundice, hives or petechiae] EYES: [pupils are equally round, extraocular movements intact without nystagmus, clear conjunctiva, non-icteric sclera] HENT: [normocephalic, atraumatic, moist mucus membranes, oropharynx clear without exudates some nasal congestion] NECK: [Nontender and supple with no nuchal rigidity, no lymphadenopathy, full range of motion] PULMONARY: [clear to auscultation without wheezes, rhonchi, or rales, normal excursion, no accessory muscle use and no stridor] CARDIOVASCULAR: [regular rate, rhythm, normal S1 and S2. No appreciated murmurs. Strong radial pulses with intact distal perfusion] GASTROINTESTINAL: [soft, non-tender, non-distended, no palpable masses, no rebound or guarding] GENITOURINARY: [No costovertebral angle tenderness to palpation] LYMPHATICS: [no edema in lower extremities, no lymphadenopathy] MUSCULOSKELETAL: [Extremities are nontender to palpation and have no gross deformity, no edema, redness, or swelling] NEUROLOGIC: [alert and oriented x 3, GCS 15, normal mentation and speech. Moves all extremities x 4 without motor or sensory deficit, gait is stable without ataxia] PSYCHIATRIC: [normal mood and affect, thought process is clear and linear] Vitals & Measurements T: 36.5 ?C (Oral) HR: 83 (Peripheral) BP: 115/80 SpO2: 96% HT: 62 cm WT: 82.3 kg (Dosing) Additional Vitals No qualifying data available. Procedure No qualifying data available. ASA Documentation Medical Decision Making MEDICAL DECISION MAKING Number and Complexity of Problems Differential Diagnosis: _URI, sinusitis, allergies MDM Data External documents reviewed: _ My EKG interpretation: _ My CT interpretation: _ My X-ray interpretation: _ My Ultrasound interpretation: _ Decision rules/scores evaluated: _ Discussed with: _ Decision rules/scores evaluated: _ ? HEART Score: Not Completed ? PERC Rule: _ ? NEXUS C-spine Criteria: _ ? Rampart Ankle Rule: _ ? Rampart Knee Rule: _ ? Wells Criteria for DVT: _ ? Wells Criteria for PE: _ Discussed with: _ Treatment and Disposition ED Course: _H and P Shared decision making: _discussed exam and plan - patient agreeable Code status: _not addressed Reexamination/Reevalu ation unchanged Assessment/Plan 1. Sinusitis Plan: follow up with PCP within a few days, return for any change or concerns. Ordered: predniSONE, 1 tabs, Oral, Daily, X 5 days, # 5 tabs, 0 Refill(s), 09/11/22 6:52:00 EDT, Pharmacy: [id number] Orders: Discharge Patient Refresh vitals and sections below: Problem List/Past Medical History Ongoing Anxiety Depression Low serum potassium level Seasonal nasal allergies Historical No qualifying data Procedure/Surgical History wisdom teeth Medications Inpatient No active inpatient medications Home Flonase 50 mcg/inh nasal spray, 1 sprays, Nasal, BID hydrOXYzine hydrochloride 25 mg oral tablet, 25 mg= 1 tabs, Oral, q8hr, PRN Latuda 20 mg oral tablet, 20 mg= 1 tabs, Oral, Daily OXcarbazepine 150 mg oral tablet, 150 mg= 1 tabs, Oral, qAM OXcarbazepine 300 mg oral tablet, 300 mg= 1 tabs, Oral, HS (at bedtime) potassium acid phosphate, 1000 mg, Oral predniSONE 20 mg oral tablet, 20 mg= 1 tabs, Oral, Daily sertral (more content not included)... Normal [facility] ED Clinical Summaryon 2022 ED Clinical Summary [address] [address] ED Clinical Summary Person Information Name: Rosangela Lindo Cristy/New_[place]wame Age: 42 Years : 1980 Sex: Female PCP: Marital Status: Phone: Race: White Ethnicity: Not or Language: Luxembourger Visit Reason: Knee pain-swelling; Wrist pain-swelling; Fall; fall Acuity: 4 Enc Type: Emergency Med Service: Emergency Medicine Arrival: 09/04/2022 09:18:00 Discharge: 09/04/2022 10:24:00 LOS: 000 01:06 Checkin: 09/04/2022 09:18:00 Checkout: 09/04/2022 10:24:00 Dispo Type: Home or Self Care Address: [address] [place], [place] [id number] Provider Notes: History of Present Illness Patient presents to the ED with complaints of pain along the R ventral wrist S/P fall two days ago.? She notes she slipped on water and lost her footing.? Her R leg turned and she struck her R knee.? She denies hitting her head.? No neck or back pain.? She denies use of prescription anticoagulant medication.? She denies having other acute complaints. Review of Systems GENERAL: Negative for fever, chills EYES:?Negative for?acute changes NECK: Negative for pain CARDIOVASCULAR: Negative for chest pain RESPIRATORY: Negative for shortness of breath, cough ABDOMEN/GI: Negative for abdominal pain, nausea, vomiting, diarrhea BACK: Negative for pain MUSCULOSKELETAL: + for R wrist pain SKIN: Negative for?rash, discoloration NEURO: Negative for headache, focal weakness, acute numbness, acute tingling Physical Exam CONSTITUTIONAL: Patient is awake and alert HEAD: Normocephalic HEENT: Moist mucus membranes, oropharynx clear EYES: Pupils are equally round and reactive to light, lids and lashes normal, clear conjunctiva, non-icteric sclera.? No drainage NECK: Trachea midline, external neck normal PULMONARY: Clear to auscultation bilaterally with equal sounds.? Normal rate and effort CARDIOVASCULAR: Regular rate and?rhythm. GASTROINTESTINAL: Soft, non-tender, normal bowel sounds, no rebound or guarding BACK: No flank tenderness SKIN: Warm and dry, no evidence of cellulitis.? No petechiae MUSCULOSKELETAL: Extremities without acute deformity.? No LE edema.??There is tenderness along the R dorsal wrist.? No snuff box tenderness.? No?swelling.? No other RUE tenderness.? Chest?wall nontender.? Pelvis stable and nontender.? No?tenderness along the RLE or LLE..? No midline C/T/L spine tenderness.? Normal distal pulses and cap refill.? NEUROLOGIC:?No gross motor or sensory deficits.? Normal tone.? Normal coordination.? PSYCHIATRIC: Normal mood and affect Diagnosis: 1:Right wrist sprain Problems No Problems Documented Smoking Status: Functional Status: Sensory Deficits: History of Falls: Mobility Assistance Prior to Admission: ADLs: Current Level of Assistance for Self-Care/Mobility: Cognitive Status: Allergies No Known Medication Allergies No Known Allergies Laboratory or Other Results This Visit (last charted value for your 09/04/2022 visit) Diagnostic Radiology 09/04/2022 9:49 AM XR Wrist 3 or More Views Right: XR Wrist 3 or More Views Right Measurements: Height: Weight: 81.3 kg Blood Pressure: /85 mmHg BMI: Procedures No Procedures Documented Immunizations No Immunizations Documented This Visit Final Med List: Medications that have not changed Other Medications fluticasone nasal (Flonase 50 mcg/inh nasal spray) 1 Sprays Nasal (into the nose) 2 times a day. Refills: 0. Last Dose: ____ hydrOXYzine (hydrOXYzine hydrochloride 25 mg oral tablet) 1 Tabs Oral (given by mouth) every 8 hours as needed as needed for anxiety. Last Dose: ____ lurasidone (Latuda 20 mg oral tablet) 1 Tabs Oral (given by mouth) every day. Last Dose: ____ OXcarbazepine (OXcarbazepine 150 mg oral tablet) 1 Tabs Oral (given by mouth) once a day (in the morning). Last Dose: ____ OXcarbazepine (OXcarbazepine 300 mg oral tablet) 1 Tabs Oral (given by mouth) once a day (at bedtime). Last Dose: ____ potassium acid phosphate 1,000 Milligram Oral (given by mouth). Last Dose: ____ sertraline (sertraline 100 mg oral tablet) 1 Tabs Oral (given by mouth) once a day (in the morning). Last Dose: ____ traZODone (traZODone 100 mg oral tablet) 1 Tabs Oral (given by mouth) once a day (at bedtime). Last Dose: ____ Other Medications fluticasone nasal (Flonase 50 mcg/inh nasal spray) 1 Sprays Nasal (into the nose) 2 times a day. Refills: 0. hydrOXYzine (hydrOXYzine hydrochloride 25 mg oral tablet) 1 Tabs Oral (given by mouth) every 8 hours as needed as needed for anxiety. lurasidone (Latuda 20 mg oral tablet) 1 Tabs Oral (given by mouth) every day. OXcarbazepine (OXcarbazepine 150 mg oral tablet) 1 Tabs Oral (given by mouth) once a day (in the m (more content not included)... Normal [facility] ED Note-Physicianon 09-05-19 ED Note-Physician Chief Complaint R wrist pain History of Present Illness Patient presents to the ED with complaints of pain along the R ventral wrist S/P fall two days ago. She notes she slipped on water and lost her footing. Her R leg turned and she struck her R knee. She denies hitting her head. No neck or back pain. She denies use of prescription anticoagulant medication. She denies having other acute complaints. Review of Systems GENERAL: Negative for fever, chills EYES: Negative for acute changes NECK: Negative for pain CARDIOVASCULAR: Negative for chest pain RESPIRATORY: Negative for shortness of breath, cough ABDOMEN/GI: Negative for abdominal pain, nausea, vomiting, diarrhea BACK: Negative for pain MUSCULOSKELETAL: + for R wrist pain SKIN: Negative for rash, discoloration NEURO: Negative for headache, focal weakness, acute numbness, acute tingling Physical Exam CONSTITUTIONAL: Patient is awake and alert HEAD: Normocephalic HEENT: Moist mucus membranes, oropharynx clear EYES: Pupils are equally round and reactive to light, lids and lashes normal, clear conjunctiva, non-icteric sclera. No drainage NECK: Trachea midline, external neck normal PULMONARY: Clear to auscultation bilaterally with equal sounds. Normal rate and effort CARDIOVASCULAR: Regular rate and rhythm. GASTROINTESTINAL: Soft, non-tender, normal bowel sounds, no rebound or guarding BACK: No flank tenderness SKIN: Warm and dry, no evidence of cellulitis. No petechiae MUSCULOSKELETAL: Extremities without acute deformity. No LE edema. There is tenderness along the R dorsal wrist. No snuff box tenderness. No swelling. No other RUE tenderness. Chest wall nontender. Pelvis stable and nontender. No tenderness along the RLE or LLE.. No midline C/T/L spine tenderness. Normal distal pulses and cap refill. NEUROLOGIC: No gross motor or sensory deficits. Normal tone. Normal coordination. PSYCHIATRIC: Normal mood and affect Vitals & Measurements T: 36.9 ?C (Oral) HR: 88 (Peripheral) RR: 16 BP: 134/90 SpO2: 95% HT: 158 cm WT: 81.3 kg (Dosing) Additional Vitals No qualifying data available. Procedure No qualifying data available. ASA Documentation Medical Decision Making Improved in the ED. Appears well, NAD. ED return precautions reviewed and follow up plan discussed. She states she must have a work excuse covering her through 09/06/22. Outpatient follow up was advised. Assessment/Plan 1. Right wrist sprain Ordered: Return to Work/School Orders: Discharge Patient Refresh vitals and sections below: Problem List/Past Medical History Ongoing Anxiety Depression Low serum potassium level Seasonal nasal allergies Historical No qualifying data Procedure/Surgical History wisdom teeth Medications Inpatient Motrin, 600 mg, Oral, Once Home Flonase 50 mcg/inh nasal spray, 1 sprays, Nasal, BID, Not taking hydrOXYzine hydrochloride 25 mg oral tablet, 25 mg= 1 tabs, Oral, q8hr, PRN Latuda 20 mg oral tablet, 20 mg= 1 tabs, Oral, Daily OXcarbazepine 150 mg oral tablet, 150 mg= 1 tabs, Oral, qAM OXcarbazepine 300 mg oral tablet, 300 mg= 1 tabs, Oral, HS (at bedtime) potassium acid phosphate, 1000 mg, Oral sertraline 100 mg oral tablet, 100 mg= 1 tabs, Oral, qAM traZODone 100 mg oral tablet, 100 mg= 1 tabs, Oral, HS (at bedtime) Allergies No Known Allergies No Known Medication Allergies Social History Alcohol Never Home/Environment Lives with Significant other. Sexual Sexually active: Yes. History of sexual abuse: No. Substance Abuse Denies All Tobacco Never (less than 100 in lifetime) Use:. Family History Cancer of colon: Father. Dementia: Grandfather (M). Diabetes: Grandfather (M). Stroke..: Grandfather (M). Thyroid disease: Mother. Diagnostic Results Electronically signed by Luisa Delaney DO 09/04/22 10:14 EDT Normal [facility] XR Wrist 3 or More Views Rig hton 09-04-2022 XR Wrist 3 or More Views Right EXAM: XR Wrist 3 or More Views Right HISTORY: Pain in joint wrist, COMPARISON: None. FINDINGS: Normal osseous mineralization. Joint spaces are relatively well-preserved. There is no acute-appearing fracture or dislocation. Final Dictated by: Reji Mendoza MD Dictated DT/TM: 09/04/2022 9:59 am Signed by: Reji Mendoza MD Signed (Electronic Signature): 09/04/2022 10:00 am (If Report Is Signed, Electronically Signed in Other Vendor System) Normal [facility] XR ANKLE RIGHT (MIN 3 VIEWS) on 09-02-2022 XR ANKLE RIGHT (MIN 3 VIEWS) EXAMINATION: TWO XRAY VIEWS OF THE RIGHT KNEE; THREE XRAY VIEWS OF THE RIGHT ANKLE; TWO XRAY VIEWS OF THE RIGHT TIBIA AND FIBULA 09/02/2022 8:14 pm; 09/02/2022 8:13 pm COMPARISON: None. HISTORY: ORDERING SYSTEM PROVIDED HISTORY: fall pain TECHNOLOGIST PROVIDED HISTORY: fall pain; ORDERING SYSTEM PROVIDED HISTORY: fall, pain TECHNOLOGIST PROVIDED HISTORY: fall, pain FINDINGS: Knee: No acute displaced fracture or dislocation. Joint spaces appear preserved. No suggestion of significant joint effusion. No radiopaque foreign bodies. Tibia/Fibula: No acute displaced fracture or dislocation. No radiopaque foreign bodies. Ankle: No acute displaced fracture or dislocation. Talar dome appears intact. Ankle mortise appears congruent. Joint spaces appear preserved. No radiopaque foreign bodies. IMPRESSION: No convincing acute osseous abnormality in the right knee, tibia/fibula, or ankle. Interpreted by: Yan Mcgraw MD Signed by: Yan Mcgraw MD 09/02/22 Final result Normal [facility] XR HAND RIGHT (MIN 3 VIEWS)o n 09-02-2022 XR HAND RIGHT (MIN 3 VIEWS) EXAMINATION: THREE XRAY VIEWS OF THE RIGHT WRIST; THREE XRAY VIEWS OF THE RIGHT HAND 09/02/2022 8:14 pm; 09/02/2022 8:13 pm COMPARISON: None. HISTORY: ORDERING SYSTEM PROVIDED HISTORY: fall pain TECHNOLOGIST PROVIDED HISTORY: fall pain FINDINGS: Wrist/Hand: No acute displaced fracture or dislocation. Joint spaces appear preserved. No radiopaque foreign bodies. IMPRESSION: No convincing acute osseous abnormality. Interpreted by: Yan Mcgraw MD Signed by: Yan Mcgraw MD 09/02/22 Final result Normal [facility] XR KNEE RIGHT (1-2 VIEWS)on 09-02-2022 XR KNEE RIGHT (1-2 VIEWS) EXAMINATION: TWO XRAY VIEWS OF THE RIGHT KNEE; THREE XRAY VIEWS OF THE RIGHT ANKLE; TWO XRAY VIEWS OF THE RIGHT TIBIA AND FIBULA 09/02/2022 8:14 pm; 09/02/2022 8:13 pm COMPARISON: None. HISTORY: ORDERING SYSTEM PROVIDED HISTORY: fall pain TECHNOLOGIST PROVIDED HISTORY: fall pain; ORDERING SYSTEM PROVIDED HISTORY: fall, pain TECHNOLOGIST PROVIDED HISTORY: fall, pain FINDINGS: Knee: No acute displaced fracture or dislocation. Joint spaces appear preserved. No suggestion of significant joint effusion. No radiopaque foreign bodies. Tibia/Fibula: No acute displaced fracture or dislocation. No radiopaque foreign bodies. Ankle: No acute displaced fracture or dislocation. Talar dome appears intact. Ankle mortise appears congruent. Joint spaces appear preserved. No radiopaque foreign bodies. IMPRESSION: No convincing acute osseous abnormality in the right knee, tibia/fibula, or ankle. Interpreted by: Yan Mcgraw MD Signed by: Yan Mcgraw MD 09/02/22 Final result Normal [facility] XR TIBIA FIBULA RIGHT (2 VIE WS)on 09-02-2022 XR TIBIA FIBULA RIGHT (2 VIEWS) EXAMINATION: TWO XRAY VIEWS OF THE RIGHT KNEE; THREE XRAY VIEWS OF THE RIGHT ANKLE; TWO XRAY VIEWS OF THE RIGHT TIBIA AND FIBULA 09/02/2022 8:14 pm; 09/02/2022 8:13 pm COMPARISON: None. HISTORY: ORDERING SYSTEM PROVIDED HISTORY: fall pain TECHNOLOGIST PROVIDED HISTORY: fall pain; ORDERING SYSTEM PROVIDED HISTORY: fall, pain TECHNOLOGIST PROVIDED HISTORY: fall, pain FINDINGS: Knee: No acute displaced fracture or dislocation. Joint spaces appear preserved. No suggestion of significant joint effusion. No radiopaque foreign bodies. Tibia/Fibula: No acute displaced fracture or dislocation. No radiopaque foreign bodies. Ankle: No acute displaced fracture or dislocation. Talar dome appears intact. Ankle mortise appears congruent. Joint spaces appear preserved. No radiopaque foreign bodies. IMPRESSION: No convincing acute osseous abnormality in the right knee, tibia/fibula, or ankle. Interpreted by: Yan Mcgraw MD Signed by: Yan Mcgraw MD 09/02/22 Final result Normal [facility] XR WRIST RIGHT (MIN 3 VIEWS) on 09-02-2022 XR WRIST RIGHT (MIN 3 VIEWS) EXAMINATION: THREE XRAY VIEWS OF THE RIGHT WRIST; THREE XRAY VIEWS OF THE RIGHT HAND 09/02/2022 8:14 pm; 09/02/2022 8:13 pm COMPARISON: None. HISTORY: ORDERING SYSTEM PROVIDED HISTORY: fall pain TECHNOLOGIST PROVIDED HISTORY: fall pain FINDINGS: Wrist/Hand: No acute displaced fracture or dislocation. Joint spaces appear preserved. No radiopaque foreign bodies. IMPRESSION: No convincing acute osseous abnormality. Interpreted by: Yan Mcgraw MD Signed by: Yan Mcgraw MD 09/02/22 Final result Normal [facility] Auto Diffon 08-30-2022 Basophils/100 WBC (Bld) 0.5 % Normal 0.0-2.0 [facility] Comment on above: Order Comment: Order Added by Discern Expert. Performed By: #### 2 323900, 7761850, 39243207, 8327263, 6929477, 37546206 ####[facility] [address] [place] [address] Basophils/Leukocytes Auto (Bld) [Pure # fraction] 0.0 E9/L Normal 0.0-0.2 [facility] Comment on above: Order Comment: Order Added by Discern Expert. Performed By: #### 2 895943, 9967810, 34270739, 6324550, 7685815, 15646249 ####[facility] [address] [place] [address] Eosinophils/100 WBC (Bld) 1.4 % Normal 0.0-8.0 [facility] Comment on above: Order Comment: Order Added by Discern Expert. Performed By: #### 2 406126, 8370154, 01704941, 4373256, 8283074, 09088938 ####[address] [place] [address] Eosinophils/Leukocytes Auto (Bld) [Pure # fraction] 0.1 E9/L Normal 0.0-0.5 [facility] Comment on above: Order Comment: Order Added by Discern Expert. Performed By: #### 2 461548, 5742362, 02880058, 7559927, 2250512, 70597436 ####[address] [address] Lymphocytes/100 WBC (Bld) 36.5 % Normal 14.0-50.0 [facility] Comment on above: Order Comment: Order Added by Discern Expert. Performed By: #### 2 549232, 5335803, 40497159, 4954655, 1103661, 92267983 ####[address] [place] [address] Lymphocytes/Leukocytes Auto (Bld) [Pure # fraction] 2.1 E9/L Normal 1.0-4.0 [facility] Comment on above: Order Comment: Order Added by Discern Expert. Performed By: #### 2 001070, 3959964, 95183306, 2956650, 6517473, 58217596 ####[address] [place] [address] Monocytes/100 WBC (Bld) 6.0 % Normal 4.0-14.0 [facility] Comment on above: Order Comment: Order Added by Discern Expert. Performed By: #### 2 451686, 5926572, 64757102, 5760421, 0989841, 66515090 ####[facility] [address] [place] [address] Monocytes/Leukocytes Auto (Bld) [Pure # fraction] 0.4 E9/L Normal 0.2-1.0 [facility] Comment on above: Order Comment: Order Added by Discern Expert. Performed By: #### 2 618155, 7213249, 84726528, 9344523, 3896313, 97118937 ####[facility] [address] [place] [address] Neutrophils/100 WBC (Bld) 55.6 % Normal 36.0-75.0 [facility] Comment on above: Order Comment: Order Added by Discern Expert. Performed By: #### 2 513451, 2193367, 39895247, 6892114, 5792528, 84781889 ####[facility] [address] [place] [address] Neutrophils/Leukocytes Auto (Bld) [Pure # fraction] 3.3 E9/L Normal 2.0-7.5 [facility] Comment on above: Order Comment: Order Added by Discern Expert. Performed By: #### 2 603693, 0442047, 91770799, 3281361, 2702706, 56758109 ####[facility] [address] [place] [address] C Urineon 08-30-2022 Bacteria identified Cx Nom (U) Normal [facility] Comment on above: Performed By: #### 2 299690, 21965899 ####[address] [place] [address] CBC w/ Auto Diffon Erythrocyte distribution width (RBC) [Ratio] 14.9 % High 10.9-14.2 [facility] Comment on above: Performed By: #### 2 431044, 0269295, 02032640, 2668211, 3970863, 55393207 ####[facility] [address] [place] [address] Hematocrit (Bld) [Volume fraction] 36.5 % Normal 34.0-46.0 [facility] Comment on above: Performed By: #### 2 000449, 2717147, 11692719, 7531047, 9324755, 84960385 ####[address] [place] [address] Hemoglobin (Bld) [Mass/Vol] 12.1 g/dL Normal 12.0-16.0 [facility] Comment on above: Performed By: #### 2 179791, 1208525, 00542256, 0791558, 5020558, 99742380 ####[address] [address] MCH (RBC) [Entitic mass] 27.0 pg Normal 27.0-34.0 [facility] Comment on above: Performed By: #### 2 577709, 0393821, 50807221, 8272111, 5144967, 85106450 ####[address] [place] [address] MCHC (RBC) [Mass/Vol] 33.1 g/dL Normal 31.4-36.0 [facility] Comment on above: Performed By: #### 2 892514, 5300232, 19866335, 3271355, 0920000, 18143460 ####[address] [place] [address] MCV (RBC) [Entitic vol] 81.6 fL Normal 80.0-100.0 [facility] Comment on above: Performed By: #### 2 808285, 4317511, 94546098, 9387060, 2501659, 44899982 ####[facility] [address] [place] [address] Platelet mean volume (Bld) [Entitic vol] 8.8 fL Normal 6.4-10.8 [facility] Comment on above: Performed By: #### 2 122578, 1275387, 30118013, 3927384, 1295874, 37775554 ####[facility] [address] [place] [address] Platelets (Bld) [#/Vol] 395.0 E9/L Normal 150.0-500.0 [facility] Comment on above: Performed By: #### 2 039156, 1126584, 50711022, 6506423, 2763734, 71365198 ####[facility] [address] [place] [address] RBC (Bld) [#/Vol] 4.5 E12/L Normal 4.3-5.9 [facility] Comment on above: Performed By: #### 2 662180, 1671346, 70402220, 2479075, 4209054, 23537685 ####[address] [place] [address] WBC corrected for nucl RBC Auto (Bld) [#/Vol] 5.9 E9/L Normal 4.0-11.0 [facility] Comment on above: Performed By: #### 2 621785, 0842676, 51696388, 6914362, 6600128, 38382992 ####[address] [place] [address] CMPon 08-30-2022 Albumin [Mass/Vol] 3.7 g/dL Normal 3.3-5.0 [facility] Comment on above: Performed By: #### 2 083236, 5893261, 30593381, 9889910, 8333821, 67651303 ####[address] [place] [address] Albumin/Globulin (S) [Mass conc ratio] 1.1 Normal 1.1-2.2 [facility] Comment on above: Performed By: #### 2 472594, 9397305, 53120748, 4940733, 6016906, 30357940 ####[facility] [address] [place] [address] ALP [Catalytic activity/Vol] 78 Int._Unit/L Normal 21-98 [facility] Comment on above: Performed By: #### 2 351186, 7103366, 86651992, 8579030, 1753042, 50337776 ####[facility] [address] [place] [address] ALT No additional P-5'-P [Catalytic activity/Vol] 15 Int._Unit/L Normal 6-46 [facility] Comment on above: Performed By: #### 2 273129, 6174885, 25436648, 5553845, 2821173, 32724928 ####[facility] [address] [place] [address] Anion gap [Moles/Vol] 14 mmol/L Normal 6-16 [facility] Comment on above: Performed By: #### 2 496423, 8656043, 42411215, 5303472, 7137999, 01410208 ####[facility] [address] [place] [address] AST [Catalytic activity/Vol] 17 Int._Unit/L Normal 5-43 [facility] Comment on above: Performed By: #### 2 298827, 4740905, 94349874, 1370633, 5159551, 79593397 ####[facility] [address] [place] [address] Bilirubin [Mass/Vol] 0.3 mg/dL Normal 0.0-1.1 [facility] Comment on above: Performed By: #### 2 267673, 0116531, 41989149, 3790204, 9857940, 84246308 ####[facility] [address] [place] [address] Calcium [Mass/Vol] 8.9 mg/dL Normal 8.9-11.1 [facility] Comment on above: Performed By: #### 2 429401, 0869140, 66898484, 0275376, 9342214, 37060767 ####[facility] [address] [place] [address] Chloride [Moles/Vol] 103 mmol/L Normal 101-111 [facility] Comment on above: Performed By: #### 2 377663, 7108041, 64101007, 6298064, 4735107, 56240530 ####[facility] [address] [place] [address] CO2 [Moles/Vol] 22 mmol/L Normal 21-31 [facility] Comment on above: Performed By: #### 2 819774, 0671700, 98245523, 2693624, 2086253, 74336928 ####[facility] [address] [place] [address] Creatinine [Mass/Vol] 0.8 mg/dL Normal 0.5-1.3 [facility] Comment on above: Performed By: #### 2 655374, 2250418, 52869217, 9962739, 4738080, 46787880 ####[facility] [address] [place] [address] Globulin (S) [Mass/Vol] 3.4 g/dL Normal 1.4-4.0 [facility] Comment on above: Performed By: #### 2 821688, 5582902, 48803899, 3589952, 5895419, 34123076 ####[facility] [address] [place] [address] Glucose [Mass/Vol] 94 mg/dL Normal 55-199 [facility] Comment on above: Result Comment: If t his glucose result represents a fasting glucose, interpretation should refer to the following reference range: 55-99 mg/dL Performed By: #### 2 564945, 4325765, 85700026, 1411256, 7647826, 10336750 ####[facility] [address] [place] [address] Potassium [Moles/Vol] 3.8 mmol/L Normal 3.5-5.3 [facility] Comment on above: Performed By: #### 2 733605, 0624058, 68708034, 6235792, 2672398, 74196938 ####[facility] [address] [place] [address] Protein [Mass/Vol] 7.1 g/dL Normal 6.0-7.8 [facility] Comment on above: Performed By: #### 2 786305, 8431312, 69166568, 9561962, 7225873, 31377634 ####[facility] [address] [place] [address] Sodium [Moles/Vol] 135 mmol/L Normal 135-145 [facility] Comment on above: Performed By: #### 2 929139, 2797171, 02112506, 4001848, 8753924, 80267411 ####[facility] [address] [place] [address] Urea nitrogen [Mass/Vol] 13 mg/dL Normal 5-21 [facility] Comment on above: Performed By: #### 2 890388, 5462466, 01619854, 8637048, 1914280, 46380502 ####[facility] [address] [place] [address] Urea nitrogen/Creatinine [Mass ratio] 16 No Units Normal 10-20 [facility] Comment on above: Performed By: #### 2 131497, 0146843, 83535778, 7144228, 6932405, 44181547 ####[facility] [address] [place] [address] Lipid Panelon 08-30-2022 Cholesterol [Mass/Vol] 214 mg/dL High 120-200 [facility] Comment on above: Performed By: #### 2 360340, 0723438, 58351687, 1373684, 5316659, 86756482 ####[facility] [address] [place] [address] Cholesterol in HDL [Mass/Vol] 38 mg/dL Invalid Interpretation Code [facility] Comment on above: Result Comment: HDL > or equal to 60 mg/dL: Low cardiovascular riskHDL < 40 mg/dL : High cardiovascular risk Performed By: #### 2 435863, 3104501, 86843088, 5148019, 4451816, 96503984 ####[facility] [address] [place] [address] Cholesterol in LDL [Mass/Vol] 153 mg/dL High <=129 [facility] Comment on above: Performed By: #### 2 454403, 8829899, 12482467, 7433432, 0477348, 97421428 ####[facility] [address] [place] [address] Cholesterol in VLDL [Mass/Vol] 34 mg/dL Normal 7-40 [facility] Comment on above: Performed By: #### 2 410839, 8725478, 68638382, 5484593, 0697155, 71412136 ####[facility] [address] [place] [address] Triglyceride [Mass/Vol] 169 mg/dL High <=149 [facility] Comment on above: Performed By: #### 2 256798, 9119714, 22437998, 4364823, 0105638, 85949989 ####[facility] [address] [place] [address] Physician Orderon 08-30-2022 Physician Order [id number] Normal [facility] T4 & TSHon 08-30-2022 T4 [Mass/Vol] 9.2 microgram/dL High 4.6-9.1 [facility] Comment on above: Performed By: #### 2 428149, 7907680, 65306174, 1317389, 0495379, 13521116 ####[facility] [address] [place] [address] TSH Qn 2.03 m[IU]/L Normal 0.34-5.60 [facility] Comment on above: Performed By: #### 2 994304, 8601985, 37437596, 3150478, 0108846, 40147690 ####[facility] [address] [place] [address] eGFRon 08-30-2022 GFR/1.73 sq M.predicted among non-blacks MDRD (S/P/Bld) [Vol rate/Area] 94 mL/min/1.73 m2 Normal >=59 [facility] Comment on above: Order Comment: Order added by Discern Expert. Result Comment: Report Programmer akbar kidney disease could be indicated at eGFR's of less than 60 mL/min/1.73m2. Kidney failure is indicated at less than 15 mL/min/1.73m2. Performed By: #### 2 790666, 9738538, 70889707, 3177792, 5872186, 27327321 ####[facility] [address] [place] [address] Auto Diffon 08-28-2022 Basophils/100 WBC (Bld) 0.5 % Normal 0.0-2.0 [facility] Comment on above: Order Comment: Order Added by Discern Expert. Performed By: #### 2 637324, 55282592, 65981437, 14909872, 6333647, 1462989 ####[facility] [address] [place] [address] Basophils/Leukocytes Auto (Bld) [Pure # fraction] 0.0 E9/L Normal 0.0-0.2 [facility] Comment on above: Order Comment: Order Added by Discern Expert. Performed By: #### 2 663335, 73519553, 22610023, 03447938, 7567838, 9294178 ####[facility] [address] [place] [address] Eosinophils/100 WBC (Bld) 1.2 % Normal 0.0-8.0 [facility] Comment on above: Order Comment: Order Added by Discern Expert. Performed By: #### 2 946221, 81154164, 57882482, 27269667, 3390851, 1029809 ####[address] [place] [address] Eosinophils/Leukocytes Auto (Bld) [Pure # fraction] 0.1 E9/L Normal 0.0-0.5 [facility] Comment on above: Order Comment: Order Added by Discern Expert. Performed By: #### 2 252422, 65029815, 64620530, 19788956, 6244022, 3924901 ####[address] [address] Lymphocytes/100 WBC (Bld) 29.1 % Normal 14.0-50.0 [facility] Comment on above: Order Comment: Order Added by Discern Expert. Performed By: #### 2 830095, 40027652, 02725520, 26486497, 1879944, 3472130 ####[address] [address] Lymphocytes/Leukocytes Auto (Bld) [Pure # fraction] 1.8 E9/L Normal 1.0-4.0 [facility] Comment on above: Order Comment: Order Added by Apple Expert. Performed By: #### 2 105061, 79813979, 10700058, 58816632, 6311045, 9554568 ####[address] [address] Monocytes/100 WBC (Bld) 6.0 % Normal 4.0-14.0 [facility] Comment on above: Order Comment: Order Added by Discern Expert. Performed By: #### 2 300606, 38535654, 58798242, 83149826, 1586581, 7792230 ####[address] [place] [address] Monocytes/Leukocytes Auto (Bld) [Pure # fraction] 0.4 E9/L Normal 0.2-1.0 [facility] Comment on above: Order Comment: Order Added by Apple Expert. Performed By: #### 2 081303, 98036156, 36732243, 42957007, 1155682, 7993987 ####[facility] [address] [place] [address] Neutrophils/100 WBC (Bld) 63.2 % Normal 36.0-75.0 [facility] Comment on above: Order Comment: Order Added by Discern Expert. Performed By: #### 2 794453, 19411551, 31621244, 98384624, 1415348, 8795083 ####[facility] [address] [place] [address] Neutrophils/Leukocytes Auto (Bld) [Pure # fraction] 3.8 E9/L Normal 2.0-7.5 [facility] Comment on above: Order Comment: Order Added by Discern Expert. Performed By: #### 2 476885, 39073358, 32254367, 97277987, 3347726, 5635264 ####[address] [place] [address] B hCG Qualon 08-28-2022 Beta hCG Ql Negative Normal [facility] Comment on above: Performed By: #### 2 9446949 ####[facility] [address] [place] [address] BMPon 08-28-2022 Creatinine [Mass/Vol] 0.7 mg/dL Normal 0.5-1.3 [facility] Comment on above: Performed By: #### 2 151591, 73532532, 84336601, 13997529, 0037570, 5194139 ####[facility] [address] [place] [address] Urea nitrogen [Mass/Vol] 13 mg/dL Normal 5-21 [facility] Comment on above: Performed By: #### 2 385740, 75174450, 73179788, 09780027, 6378556, 4004645 ####[facility] [address] [place] [address] Urea nitrogen/Creatinine [Mass ratio] 19 No Units Normal 10-20 [facility] Comment on above: Performed By: #### 2 365984, 44984501, 96835662, 68618231, 1531872, 6946043 ####[facility] [address] [place] [address] Anion gap [Moles/Vol] 12 mmol/L Normal 6-16 [facility] Comment on above: Performed By: #### 2 142638, 92278927, 54158858, 87722343, 7167592, 1479978 ####[facility] [address] [place] [address] Calcium [Mass/Vol] 9.2 mg/dL Normal 8.9-11.1 [facility] Comment on above: Performed By: #### 2 486166, 60176530, 00074214, 39558203, 3558342, 3058662 ####[facility] [address] [place] [address] Chloride [Moles/Vol] 103 mmol/L Normal 101-111 [facility] Comment on above: Performed By: #### 2 306680, 29625514, 29920856, 52691977, 8504389, 0626661 ####[facility] [address] [place] [address] CO2 [Moles/Vol] 25 mmol/L Normal 21-31 [facility] Comment on above: Performed By: #### 2 751894, 12719730, 47779432, 03169129, 7293077, 2566017 ####[facility] [address] [place] [address] Glucose [Mass/Vol] 82 mg/dL Normal 55-199 [facility] Comment on above: Result Comment: If t his glucose result represents a fasting glucose, interpretation should refer to the following reference range: 55-99 mg/dL Performed By: #### 2 508438, 44620229, 02383023, 41725195, 3497160, 2177042 ####[facility] [address] [place] [address] Potassium [Moles/Vol] 4.2 mmol/L Normal 3.5-5.3 [facility] Comment on above: Performed By: #### 2 275354, 89292616, 98554115, 90335209, 9943651, 5067978 ####[facility] [address] [place] [address] Sodium [Moles/Vol] 136 mmol/L Normal 135-145 [facility] Comment on above: Performed By: #### 2 208730, 22641130, 02957880, 39304365, 9287849, 6898126 ####[facility] [address] [place] [address] CBC w/ Auto Diffon 3 Erythrocyte distribution width (RBC) [Ratio] 15.1 % High 10.9-14.2 [facility] Comment on above: Performed By: #### 2 910915, 63377050, 42794198, 21582421, 7010404, 8413696 ####[address] [address] Hematocrit (Bld) [Volume fraction] 37.3 % Normal 34.0-46.0 [facility] Comment on above: Performed By: #### 2 186871, [id number], 01472344, 55950593, 8451378, 9012697 ####[address] [address] Hemoglobin (Bld) [Mass/Vol] 12.2 g/dL Normal 12.0-16.0 [facility] Comment on above: Performed By: #### 2 861764, 84930988, 30706671, 83116312, 6860427, 7470945 ####[address] [place] [address] MCH (RBC) [Entitic mass] 26.9 pg Low 27.0-34.0 [facility] Comment on above: Performed By: #### 2 105597, 63666044, 30821735, 05744467, 5954183, 6108950 ####[address] [address] MCHC (RBC) [Mass/Vol] 32.7 g/dL Normal 31.4-36.0 [facility] Comment on above: Performed By: #### 2 232039, 86596494, 02419926, 14971155, 6644916, 2617139 ####[facility] [address] [place] [address] MCV (RBC) [Entitic vol] 82.1 fL Normal 80.0-100.0 [facility] Comment on above: Performed By: #### 2 330296, 94592809, 33415349, 51391763, 7005398, 1189304 ####[address] [place] [id number] Platelet mean volume (Bld) [Entitic vol] 7.5 fL Normal 6.4-10.8 [facility] Comment on above: Performed By: #### 2 506909, 51908680, 17570954, 33986515, 8031865, 1959871 ####[facility] [address] [place] [address] Platelets (Bld) [#/Vol] 362.0 E9/L Normal 150.0-500.0 [facility] Comment on above: Performed By: #### 2 601734, 02824448, 83445960, 08666277, 0276849, 4544539 ####[address] [address] RBC (Bld) [#/Vol] 4.6 E12/L Normal 4.3-5.9 [facility] Comment on above: Performed By: #### 2 794574, 28749819, 58532395, 66383189, 0017156, 6741559 ####[facility] [address] [place] [address] WBC corrected for nucl RBC Auto (Bld) [#/Vol] 6.0 E9/L Normal 4.0-11.0 [facility] Comment on above: Performed By: #### 2 530848, 39175858, 53295197, 81096187, 6730442, 9084762 ####[facility] [address] [place] [id number] CHEMISTRYOrdered By: SYSTEM SYSTEM on 08-28-2022 Anion gap [Moles/Vol] 12 mmol/L Normal 6 - 16 mEq/L FT Remisol Calcium [Mass/Vol] 9.2 mg/dL Normal 8.9 - 11. 1 mg/dL [facility]isol Chloride [Moles/Vol] 103 mmol/L Normal 101 - 1 11 mmol/L [facility] Remisol CO2 [Moles/Vol] 25 mmol/L Normal 21 - 31 mmol/L [facility] Remisol Creatinine [Mass/Vol] 0.7 mg/dL Normal 0.5 - 1.3 mg/dL [facility] Remisol GFR/1.73 sq M.predicted among non-blacks MDRD (S/P/Bld) [Vol rate/Area] 110 mL/min/1.73 m2 Normal >=59mL/min/ 1.73 m2 [facility] Chem S Glucose [Mass/Vol] 82 mg/dL Normal 55 - 199 mg/dL [facility] Remisol Potassium [Moles/Vol] 4.2 mmol/L Normal 3.5 - 5.3 mmol/L [facility] Remisol Sodium [Moles/Vol] 136 mmol/L Normal 135 - 145 mmol/L [facility] Remisol Troponin I.cardiac [Mass/Vol] pg/mL Low 10.10 - 27.10 pg/mL FT Remisol Urea nitrogen [Mass/Vol] 13 mg/dL Normal 5 - 21 mg/dL [facility] Urea nitrogen/Creatinine [Mass ratio] 19 mg/mg Normal 10 - 20 [facility] Remisol COAGULATIONOrdered By: Lata Schultz on 08-28-2022 aPTT Coag (PPP) [Time] 33.2 s Normal 25.1 - 36.5 second(s) FT Auto Coag INR Coag (PPP) [Relative time] 0.9 {INR} Invalid Interpretation Code FT Auto Coag PT Coag (PPP) [Time] 10.2 s Normal 9.4 - 1 2.5 second(s) FT Auto Coag Consent for Treatmenton 08-02 Consent for Treatment [id number]:127 Normal [facility] Discharge Instructionson Discharge Instructions [id number]:127 Normal [facility] ED Clinical Summaryon 2022 ED Clinical Summary Normal [facility] ED Note-Physicianon 08-29-19 ED Note-Physician Normal [facility] Comment on above: Result Comment: Elec tronically Signed By: Marko DUNN, Alan Gilliam.br\Date and Time Signed: 08/28/22 15:39 EDT ED Patient Education Noteon 08-28-2022 ED Patient Education Note Normal [facility] ED Patient Summaryon 023 ED Patient Summary Normal [facility] HEMATOLOGYOrdered By: SYSTEM SYSTEM on 08-28-2022 Basophils/100 WBC (Bld) 0.5 % Normal 0.0 - 2.0 % [facility] HemeAutoSS Basophils/Leukocytes Auto (Bld) [Pure # fraction] 0.0 E9/L Normal 0.0 - 0.2 E9/L [facility] HemeAutoSS Eosinophils/100 WBC (Bld) 1.2 % Normal 0.0 - 8.0 % [facility] HemeAutoSS Eosinophils/Leukocytes Auto (Bld) [Pure # fraction] 0.1 E9/L Normal 0.0 - 0.5 E9/L [facility] HemeAutoSS Lymphocytes/100 WBC (Bld) 29.1 % Normal 14.0 - 50.0 % [facility] HemeAutoSS Lymphocytes/Leukocytes Auto (Bld) [Pure # fraction] 1.8 E9/L Normal 1.0 - 4.0 E9/L [facility] HemeAutoSS Monocytes/100 WBC (Bld) 6.0 % Normal 4.0 - 14.0 % [facility] HemeAutoSS Monocytes/Leukocytes Auto (Bld) [Pure # fraction] 0.4 E9/L Normal 0.2 - 1.0 E9/L [facility] HemeAutoSS Neutrophils/100 WBC (Bld) 63.2 % Normal 36.0 - 75.0 % [facility] HemeAutoSS Neutrophils/Leukocytes Auto (Bld) [Pure # fraction] 3.8 E9/L Normal 2.0 - 7.5 E9/L FT HemeAutoSS HEMATOLOGYOrdered By: Marlene Howard on 08-28-2022 Erythrocyte distribution width (RBC) [Ratio] 15.1 % High 10.9 - 14.2 % [facility] HemeAutoSS Hematocrit (Bld) [Volume fraction] 37.3 % Normal 34.0 - 46.0 % FT HemeAutoSS Hemoglobin (Bld) [Mass/Vol] 12.2 g/dL Normal 12.0 - 16.0 gm/dL [facility] HemeAutoSS MCH (RBC) [Entitic mass] 26.9 pg Low 27.0 - 34.0 pg [facility] HemeAutoSS MCHC (RBC) [Mass/Vol] 32.7 g/dL Normal 31.4 - 36.0 gm/dL [facility] HemeAutoSS MCV (RBC) [Entitic vol] 82.1 fL Normal 80.0 - 100.0 fL [facility] HemeAutoSS Platelet mean volume (Bld) [Entitic vol] 7.5 fL Normal 6.4 - 10.8 fL [facility] HemeAutoSS Platelets (Bld) [#/Vol] 362.0 E9/L Normal 150. 0 - 500.0 E9/L [facility] HemeAutoSS RBC (Bld) [#/Vol] 4.6 E12/L Normal 4.3 - 5.9 E12/L FT HemeAutoSS WBC corrected for nucl RBC Auto (Bld) [#/Vol] 6.0 E9/L Normal 4.0 - 11.0 E9/L [facility] HemeAutoSS PT & PTTon 08-28-2022 aPTT Coag (PPP) [Time] 33.2 second(s) Normal 25.1-36.5 [facility] Comment on above: Result Comment: Para meter 15 days - 4 weeks 1 - 5 months 6 - 11 months 1 - 5 years 6 - 10 years 11 - 17 years PTT Mean: 35.4 (27.6-45.6) Mean: 33.5 (24.8-40.7) Mean: 32.4 (25.1-40.7) Mean: 31.6 (24.0-39.2) Mean: 31.6 (26.9-38.7) Mean: 31.0 (24.6-38.4) Pediatric Reference ranges were obtained from a study by austyn Bacon al. prepared from 1437 samples obtained at 7 different centers using the same coagulation reagent and instrumentation as [facility]. Currently there are no coagulation studies available worldwide for children to 14 days, and no normal ranges. Heparin therapeutic range (represented by Anti-Factor Xa activity of 0.2 - 0.4 U/mL) corresponds to PTT of 56.6 - 109.0 sec. Performed By: #### 2 110215, 77568489, 27495321, 32609166, 0442589, 8203574 ####[facility] [address] [place] [address] INR Coag (PPP) [Relative time] 0.9 {INR} Invalid Interpretation Code [facility] Comment on above: Result Comment: INR results are specifically intended to assess patients stabilized on long-term Anticoagulation therapy suggested INR?s ?Less Intensive Anticoagulation? 2.0 ? 3.0Conventional Range 3.0 ? 4.5 Performed By: #### 2 996502, 38522346, 89931994, 44027807, 8696085, 0833158 ####[facility] [address] [place] [address] PT Coag (PPP) [Time] 10.2 second(s) Normal 9.4-12.5 [facility] Comment on above: Result Comment: 15 d ays - 4 weeks 1 - 5 months 6 -11 months 1-5 years 6-10 years 11 -17 years Mean: 11.2 (9.5-12.6) Mean: 11.0 (9.7-12.8) Mean: 11.0 (9.8-13.0) Mean: 11.3 (9.9-13.4) Mean: 11.7 (10.0-14.6) Mean: 11.8 (10.0 - 14.1) Pediatric Reference ranges were obtained from a study by austyn Bacon al. prepared from 1437 samples obtained at 7 different centers using the same coagulation reagent and instrumentation as [facility]. Currently there are no coagulation studies available worldwide for children to 14 days, and no normal ranges. Performed By: #### 2 070949, 56395015, 17723239, 12814234, 2193897, 2265827 ####[address] [place] [address] SEROLOGYOrdered By: Lata hoskins on 08-28-2022 Beta hCG Ql Negative (08/28/22 8:10 AM) Normal [facility] Man Sero Troponin 0 Hr.on 08-28-2022 Troponin I.cardiac [Mass/Vol] ng/mL Low 10.10-27.10 [facility] Comment on above: Result Comment: The 95% CI (Confidence Interval) PPV (Positive Predictive Value) for myocardial infarction in females is 38 pg/mL, in males 51 pg/mL. The results should be used in conjunction with clinical conditions of myocardial infarction.(Access High Sensitivity Troponin I Instructions For Use, Filipe [employer], October 2017) Performed By: #### 2 770299, 19572853, 62368176, 70623801, 7031873, 5029037 ####[address] [address] UA With Cult Reflexon 2022 Bacteria LM Ql (Urine sed) 1+ /HPF Abnormal Trace [facility] Comment on above: Performed By: #### 2 246687, [id number] ####[address] [address] Bilirubin Ql (U) Negative Normal Negative [facility] Comment on above: Performed By: #### 2 819808, 48228026 ####[address] [address] Clarity (U) SL CLOUDY Abnormal Clear [facility] Comment on above: Performed By: #### 2 510544, 82289661 ####[address] [address] Color (U) YELLOW Normal Yellow [facility] Comment on above: Performed By: #### 2 347220, 29070343 ####[address] [address] Epithelial cells.squamous LM.HPF (Urine sed) [#/Area] /[HPF] Normal 0-2 [facility] Comment on above: Performed By: #### 2 186435, 25675221 ####[facility] [address] [place] [address] Glucose Test strip (U) [Mass/Vol] Negative Normal Negative [facility] Comment on above: Performed By: #### 2 398316, 44048161 ####[facility] [address] [place] [address] Hemoglobin Ql (U) Negative Normal Negative [facility] Comment on above: Performed By: #### 2 793696, 43229552 ####[address] [address] Ketones (U) [Mass/Vol] Negative Normal Negative [facility] Comment on above: Performed By: #### 2 642533, 30246496 ####[address] [address] [place].plasma/Avoca. RBC (Bld) [Mass ratio] 0-3 Normal 0-3 [facility] Comment on above: Performed By: #### 2 849082, 92887145 ####[facility] [address] [place] [address] Mucus Ql (Urine sed) 1+ Normal [facility] Comment on above: Performed By: #### 2 116040, 74237999 ####[facility] [address] [place] [address] Nitrite Ql (U) Negative Normal Negative [facility] Comment on above: Performed By: #### 2 917827, 47589353 ####[facility] [address] [place] [address] pH (U) 5.5 [pH] Invalid Interpretation Code 5.0-9.0 [facility] Comment on above: Performed By: #### 2 164073, 00014310 ####[address] [address] Protein (U) [Mass/Vol] Negative Normal Negative [facility] Comment on above: Performed By: #### 2 235957, 74263374 ####[place] [address] Specific gravity (U) [Rel density] 1.020 Invalid Interpretation Code 1.005-1.030 [facility] Comment on above: Performed By: #### 2 669537, 36330380 ####[place] [address] Type of Urine collection method Clean Catch Normal [facility] Comment on above: Performed By: #### 2 290231, 57220732 ####[place] [address] Urobilinogen Qn (U) 0.2 {Sandee'U}/dL Normal 0.0-1.0 [facility] Comment on above: Performed By: #### 2 962122, 39909743 ####[place] [address] WBC Auto Ql (U) 1+ Abnormal Negative [facility] Comment on above: Performed By: #### 2 316765, 40700201 ####[place] [address] WBC LM.HPF (Urine sed) [#/Area] 6-15 Abnormal 0-5 [facility] Comment on above: Performed By: #### 2 744344, 92558139 ####[place] [address] Yeast LM Ql (Urine sed) TRACE Normal [facility] Comment on above: Performed By: #### 2 198546, 26545123 ####[place] [address] URINALYSISOrdered By: Lata browning on 08-28-2022 Bacteria LM Ql (Urine sed) 1+ /HPF Invalid Interpretation Code Trace/HPF [facility] UA Auto SS Bilirubin Ql (U) Negative (08/28/22 7:40 AM) Normal Negative FT UA Auto SS Clarity (U) Slightly Cloudy *ABN* (08/28/22 7:40 AM) Invalid Interpretation Code Clear [facility] UA Auto SS Color (U) Yellow (08/28/22 7:40 AM) Normal Yellow [facility] UA Auto SS Epithelial cells.squamous LM.HPF (Urine sed) [#/Area] /[HPF] Normal 0-2/HPF [facility] UA Aut o SS Glucose Test strip (U) [Mass/Vol] Negative (08/28/22 7:40 AM) Normal Negative [facility] UA Auto SS Hemoglobin Ql (U) Negative (08/28/22 7:40 AM) Normal Negative [facility] UA Auto SS Ketones (U) [Mass/Vol] Negative (08/28/22 7:40 AM) Normal Negative [facility] UA Auto SS [place].plasma/[place]. RBC (Bld) [Mass ratio] 0-3 /HPF Normal 0-3/HPF [facility] UA A uto SS Mucus Ql (Urine sed) 1+ (08/28/22 7:40 AM) Normal [facility] UA Auto SS Nitrite Ql (U) Negative (08/28/22 7:40 AM) Normal Negative [facility] UA Auto SS pH (U) 5.5 *NA* (08/28/22 7:40 AM) Invalid Interpretation Code 5.0 - 9.0 [facility] UA Auto SS Protein (U) [Mass/Vol] Negative (08/28/22 7:40 AM) Normal Negative [facility] UA Auto SS Specific gravity (U) [Rel density] 1.020 *NA* (08/28/22 7:40 AM) Invalid Interpretation Code 1.005 - 1.030 [facility] UA Auto SS UA Spec Desc Clean Catch (08/28/22 7:40 AM) Normal [facility] UA Auto SS Urobilinogen Qn (U) 0.5658304 {Sandee'U}/dL Normal 0.0 - 1.0 EU/dL [facility] UA Auto SS WBC Auto Ql (U) 1+ *ABN* (08/28/22 7:40 AM) Invalid Interpretation Code Negative [facility] UA Auto SS WBC LM.HPF (Urine sed) [#/Area] 6-15 /HPF Invalid Interpretation Code 0-5/HPF [facility] UA Auto SS Yeast LM Ql (Urine sed) Trace (08/28/22 7:40 AM) Normal [facility] UA Auto SS XR Chest Single Viewon 08-28 XR Chest Single View Normal Fish [facility] eGFRon 08-28-2022 GFR/1.73 sq M.predicted among non-blacks MDRD (S/P/Bld) [Vol rate/Area] 110 mL/min/1.73 m2 Normal >=59 [facility] Comment on above: Order Comment: Order added by Discern Expert. Result Comment: Report Programmer akbar kidney disease could be indicated at eGFR's of less than 60 mL/min/1.73m2. Kidney failure is indicated at less than 15 mL/min/1.73m2. Performed By: #### 2 037245, 21862895, 84676683, 21512104, 7220421, 8538573 ####[facility] [address] [place] [address] Basic Metabolic Panelon 08-01 Anion gap [Moles/Vol] 11 mmol/L 9 - 17 mmol/L iClinical Calcium [Mass/Vol] 8.6 mg/dL 8.6 - 10. 4 mg/dL iClinical Chloride [Moles/Vol] 101 mmol/L 98 - 10 7 mmol/L iClinical CO2 [Moles/Vol] 24 mmol/L 20 - 31 mmol/L iClinical Creatinine [Mass/Vol] 0.61 mg/dL 0.50 - 0.90 mg/dL iClinical GFR/1.73 sq M.predicted MDRD (S/P/Bld) [Vol rate/Area] - [facility] [employer] Comment on above: These results are not intended for use in patients <18 years of age. eGFR results are calculated without a race factor using the 2020 CKD-EPI equation. Careful clinical correlation is recommended, particularly when comparing to results calculated using previous equations. The CKD-EPI equation is less accurate in patients with extremes of muscle mass, extra-renal metabolism of creatine, excessive creatine ingestion, or following therapy that affects renal tubular secretion. Glucose [Mass/Vol] 124 mg/dL High 70 - 99 mg/dL iClinical Interpretation and review of laboratory results Abnormal iClinical Potassium [Moles/Vol] 3.8 mmol/L 3.7 - 5.3 mmol/L [facility] Sodium [Moles/Vol] 136 mmol/L 135 - 144 mmol/L [facility] Urea nitrogen [Mass/Vol] 8 mg/dL 6 - 20 mg/dL [facility] Urea nitrogen/Creatinine [Mass ratio] 13 mg/mg 9 - [facility] Basic Metabolic Profon 08-19 Anion gap [Moles/Vol] 11 mmol/L Normal - [facility] Comment on above: Performed By: #### C ARBC #### [address] [address] Manager Cash: Karson Mayers MD #### CDP, BMP #### [facility] [address] [place] [address] Manager Cash: Quintin Cooper MD BUN/CRE Ratio 13 Normal - [facility] Comment on above: Performed By: #### C ARBC #### [address] [address] Manager Cash: Karson Mayers MD #### CDP, BMP #### [facility] [address] [place], [place] [phone] Manager Cash: Quintin Cooper MD Calcium [Mass/Vol] 8.6 mg/dL Normal 8.6-10.4 [facility] Comment on above: Performed By: #### C ARBC #### [address] [address] Manager Cash: Karson Mayers MD #### CDP, BMP #### [facility] [address] [place] [address] Manager Cash: Quintin Cooper MD Chloride [Moles/Vol] 101 mmol/L Normal 98-107 [facility] Comment on above: Performed By: #### C ARBC #### [address] [id number] Manager Cash: Karson Mayers MD #### CDP, BMP #### [facility] [address] [place] [address] [place] [address] Manager Cash: Quintin Cooper MD CO2 [Moles/Vol] 24 mmol/L Normal 20-31 [facility] Comment on above: Performed By: #### C ARBC #### [address] [address] Manager Cash: Karson Mayers MD #### CDP, BMP #### [address] [place] [address] Manager Cash: Quintin Cooper MD Creatinine [Mass/Vol] 0.61 mg/dL Normal 0.50-0.90 [facility] Comment on above: Performed By: #### C ARBC #### [address] [address] Manager Cash: Karson Mayers MD #### CDP, BMP #### [address] [place] [address] Manager Cash: Quintin Cooper MD GFR/1.73 sq M.predicted among non-blacks MDRD (S/P/Bld) [Vol rate/Area] mL/min/{1.73_m2} Normal >60 [facility] Comment on above: Result Comment: These results are not intended for use in patients <18 years of age. eGFR results are calculated without a race factor using the 2020 CKD-EPI equation. Careful clinical correlation is recommended, particularly when comparing to results calculated using previous equations. The CKD-EPI equation is less accurate in patients with extremes of muscle mass, extra-renal metabolism of creatine, excessive creatine ingestion, or following therapy that affects renal tubular secretion. Performed By: #### C ARBC #### [address] [address] Manager Cash: Karson Mayers MD #### CDP, BMP #### [address] [place], [place] [phone] Manager Cash: Quintin Cooper MD Glucose [Mass/Vol] 124 mg/dL High 70-99 [facility] Comment on above: Performed By: #### C ARBC #### [address] [address] Manager Cash: Karson Mayers MD #### CDP, BMP #### [address] [place], [place] [phone] Manager Cash: Quintin Cooper MD Potassium [Moles/Vol] 3.8 mmol/L Normal 3.7-5.3 [facility] Comment on above: Performed By: #### C ARBC #### [address] [address] Manager Cash: Karson Mayers MD #### CDP, BMP #### [address] [place], [place] [phone] Manager Cash: Quintin Cooper MD Sodium [Moles/Vol] 136 mmol/L Normal 135-144 [facility] Comment on above: Performed By: #### C ARBC #### [address] [address] Manager Cash: Karson Mayers MD #### CDP, BMP #### [address] [place], [place] [phone] Manager Cash: Quintin Cooper MD Urea nitrogen [Mass/Vol] 8 mg/dL Normal 6-20 [facility] Comment on above: Performed By: #### C ARBC #### [address] [address] Manager Cash: Karson Mayers MD #### CDP, BMP #### [address] [place], [place] [phone] Manager Cash: Quintin Cooper MD CBC with Auto Differentialon 06-19-2023 Basophils (Bld) [#/Vol] 0.03 10*3/uL [facility] Basophils/100 WBC (Bld) 1 % 0 - 2 % B [facility] Eosinophils (Bld) [#/Vol] 0.07 10*3/uL [facility] Eosinophils/100 WBC (Bld) 1 % 1 - 4 % [facility] Erythrocyte distribution width (RBC) [Ratio] 13.5 % 11.8 - 14.4 % [facility] Hematocrit (Bld) [Volume fraction] 36.8 % 36.3 - 47.1 % [facility] Hemoglobin (Bld) [Mass/Vol] 12.0 g/dL 11.9 - 15.1 g/dL [facility] Immature granulocytes (Bld) [#/Vol] [facility] Immature granulocytes/100 WBC (Bld) 0 % 0 [facility] Lymphocytes/100 WBC (Bld) 27 % 24 - 43 % [facility] Lymphocytes/100 WBC (Bld) 1.39 % [facility] MCH (RBC) [Entitic mass] 27.5 pg 25.2 - 33.5 pg [facility] MCHC (RBC) [Mass/Vol] 32.6 g/dL 28.4 - 34.8 g/dL [facility] MCV (RBC) [Entitic vol] 84.4 fL 82.6 - 102.9 fL [facility] Monocytes/100 WBC (Bld) 6 % 3 - 12 % [facility] Monocytes/100 WBC (Bld) 0.30 % B ON [facility] Neutrophils/100 WBC (Bld) 65 % 36 - 65 % [facility] NRBC Automated 0.0 0.0 per 100 WBC [facility] Platelet mean volume (Bld) [Entitic vol] 9.7 fL 8.1 - 13.5 fL [facility] Platelets (Bld) [#/Vol] 353 10*3/uL [facility] RBC (Bld) [#/Vol] 4.36 10*6/uL 3.95 - 5.1 1 m/uL [facility] Segmented neutrophils/100 WBC (Bld) 3.33 % [facility] WBC other (Bld) [#/Vol] 5.1 B ON [facility] CBC with Diffon 08-19-2022 Abs. Basophil 0.03 k/uL Normal 0.00-0.20 [facility] Comment on above: Performed By: #### C ARBC #### [address] [address] Manager Cash: Karson Mayers MD #### CDP, BMP #### [facility] [address] [place] [address] [place] [phone] Manager Cash: Quintin Cooper MD Abs.Imm.Granulocyte <0.03 Normal 0.00-0.30 [facility] Comment on above: Performed By: #### C ARBC #### [address] [address] Manager Cash: Karson Mayers MD #### CDP, BMP #### [facility] [address] [place] [address] [place] [phone] Manager Cash: Quintin Cooper MD Abs.Neutrophil (Seg) 3.33 k/uL Normal 1.50-8.10 [facility] Comment on above: Performed By: #### C ARBC #### [address] [address] Manager Cash: Karson Mayers MD #### CDP, BMP #### [facility] [address] [place] [phone] Manager Cash: Quintin Cooper MD Basophils/100 WBC (Bld) 1 % Normal 0-2 M [facility] Comment on above: Performed By: #### C ARBC #### [address] [address] Manager Cash: Karson Mayers MD #### CDP, BMP #### [address] [place], [place] [phone] Manager Cash: Quintin Cooper MD Eosinophils (Bld) [#/Vol] 0.07 10*3/uL Normal 0.00-0.44 [facility] Comment on above: Performed By: #### C ARBC #### [address] [address] Manager Cash: Karson Mayers MD #### CDP, BMP #### [address] [place], [place] [phone] Manager Cash: Quintin Cooper MD Eosinophils/100 WBC (Bld) 1 % Normal 1-4 [facility] Comment on above: Performed By: #### C ARBC #### [address] [address] Manager Cash: Karson Mayers MD #### CDP, BMP #### [address] [place], [place] [phone] Manager Cash: Quintin Cooper MD Erythrocyte distribution width (RBC) [Ratio] 13.5 % Normal 11.8-14.4 [facility] Comment on above: Performed By: #### C ARBC #### [address] [address] Manager Cash: Karson Mayers MD #### CDP, BMP #### [address] [place], [place] [id number] Manager Cash: Quintin Cooper MD Hematocrit (Bld) [Volume fraction] 36.8 % Normal 36.3-47.1 [facility] Comment on above: Performed By: #### C ARBC #### [address] [address] Manager Cash: Karson Mayers MD #### CDP, BMP #### [address] [place], [place] [phone] Manager Cash: Quintin Cooper MD Hemoglobin (Bld) [Mass/Vol] 12.0 g/dL Normal 11.9-15.1 [facility] Comment on above: Performed By: #### C ARBC #### [address] [address] Manager Cash: Karson Mayers MD #### CDP, BMP #### [address] [place], [place] [phone] Manager Cash: Quintin Cooper MD Immature granulocytes/100 WBC (Bld) 0 % Normal 0 [facility] Comment on above: Performed By: #### C ARBC #### [address] [address] Manager Cash: Karson Mayers MD #### CDP, BMP #### [address] [place] [phone] Manager Cash: Quintin Cooper MD Lymphocytes (Bld) [#/Vol] 1.39 10*3/uL Normal 1.10-3.70 [facility] Comment on above: Performed By: #### C ARBC #### [address] [address] Manager Cash: Karson Mayers MD #### CDP, BMP #### [address] [place] [phone] Manager Cash: Quintin Cooper MD Lymphocytes/100 WBC (Bld) 27 % Normal 24-43 [facility] Comment on above: Performed By: #### C ARBC #### [address] [address] Manager Cash: Karson Mayers MD #### CDP, BMP #### [address] [place] [phone] Manager Cash: Quintin Cooper MD MCH (RBC) [Entitic mass] 27.5 pg Normal 25.2-33.5 [facility] Comment on above: Performed By: #### C ARBC #### [address] [place], [place] [phone] Manager Cash: Karson Mayers MD #### CDP, BMP #### [address] [place] [phone] Manager Cash: Quintin Cooper MD MCHC (RBC) [Mass/Vol] 32.6 g/dL Normal 28.4-34.8 [facility] Comment on above: Performed By: #### C ARBC #### [address] [phone] Manager Cash: Karson Mayers MD #### REGINALD, BMP #### [address] [place] [phone] Manager Cash: Quintin Cooper MD MCV (RBC) [Entitic vol] 84.4 fL Normal 82.6-102.9 M [facility] Comment on above: Performed By: #### C ARBC #### [address] [phone] Manager Cash: Karson Mayers MD #### CDP, BMP #### [address] [place] [phone] Manager Cash: Quintin Cooper MD Monocytes (Bld) [#/Vol] 0.30 10*3/uL Normal 0.10-1.20 [facility] Comment on above: Performed By: #### C ARBC #### [address] [phone] Manager Cash: Karson Mayers MD #### CDP, BMP #### [address] [place] [address] Manager Cash: Quintin Cooper MD Monocytes/100 WBC (Bld) 6 % Normal 3-12 M [facility] Comment on above: Performed By: #### C ARBC #### [address] [place] [address] Manager Cash: Karson Mayers MD #### CDP, BMP #### [facility] [address] [place], [place] [phone] Manager Cash: Quintin Cooper MD Neutrophil (Seg) 65 % Normal 36-65 [facility] Comment on above: Performed By: #### C ARBC #### [address] [address] Manager Cash: Karson Mayers MD #### CDP, BMP #### [facility] [address] [place] [address] Dr. [place] [phone] Manager Cash: Quintin Cooper MD NRBC Automated 0.0 per 100 WBC Normal 0.0 [facility] Comment on above: Performed By: #### C ARBC #### [address] [address] Manager Cash: Karson Mayers MD #### CDP, BMP #### [facility] [address] [place] [address] Dr. [place] [phone] Manager Cash: Quintin Cooper MD Platelet mean volume (Bld) [Entitic vol] 9.7 fL Normal 8.1-13.5 [facility] Comment on above: Performed By: #### C ARBC #### [address] [address] Manager Cash: Karson Mayers MD #### CDP, BMP #### [facility] [address] [place], [place] [phone] Manager Cash: Quintin Cooper MD Platelets (Bld) [#/Vol] 353 10*3/uL Normal 138-453 [facility] Comment on above: Performed By: #### C ARBC #### [address] [place], [place] [phone] Manager Cash: Karson Mayers MD #### CDP, BMP #### [address] [place], [place] [phone] Manager Cash: Quintin Cooper MD RBC (Bld) [#/Vol] 4.36 10*6/uL Normal 3.95-5.11 [facility] Comment on above: Performed By: #### C ARBC #### [address] [address] Manager Cash: Karson Mayers MD #### CDP, BMP #### [address] [place] [address] Manager Cash: Quintin Cooper MD WBC (Bld) [#/Vol] 5.1 10*3/uL Normal 3.5-11.3 [facility] Comment on above: Performed By: #### C ARBC #### [address] [place], [place] [phone] Manager Cash: Karson Mayers MD #### CDP, BMP #### [address] [place] [address] Manager Cash: Quintin Cooper MD CT HEAD WO CONTRASTon 2022 CT HEAD WO CONTRAST EXAMINATION: CT OF THE HEAD WITHOUT CONTRAST 08/19/2022 12:04 pm TECHNIQUE: CT of the head was performed without the administration of intravenous contrast. Automated exposure control, iterative reconstruction, and/or weight based adjustment of the mA/kV was utilized to reduce the radiation dose to as low as reasonably achievable. COMPARISON: None. HISTORY: ORDERING SYSTEM PROVIDED HISTORY: dizziness TECHNOLOGIST PROVIDED HISTORY: dizziness Decision Support Exception - unselect if not a suspected or confirmed emergency medical condition->Emergency Medical Condition (MA) Is the patient ?->No FINDINGS: BRAIN/VENTRICLES: There is no acute intracranial hemorrhage, mass effect, or midline shift. There is satisfactory overall canales-white matter differentiation. The ventricular structures are symmetric and unremarkable. The infratentorial structures are unremarkable. ORBITS: The visualized portion of the orbits demonstrate no acute abnormality. SINUSES: The visualized paranasal sinuses and mastoid air cells demonstrate no acute abnormality. SOFT TISSUES/SKULL: No acute abnormality of the visualized skull or soft tissues. IMPRESSION: No acute intracranial abnormality. Interpreted by: Pineda Lozada MD Signed by: Pineda Lozada MD 08/19/22 Final result Normal [facility] CT Head WO Contraston 2022 No acute intracrania l abnormality. [facility] EXAMINATION: CT OF THE HEAD WITHOUT CONTRAST 08/19/2022 12:04 pm TECHNIQUE: CT of the head was performed without the administration of intravenous contrast. Automated exposure control, iterative reconstruction, and/or weight based adjustment of the mA/kV was utilized to reduce the radiation dose to as low as reasonably achievable. COMPARISON: None. HISTORY: ORDERING SYSTEM PROVIDED HISTORY: dizziness TECHNOLOGIST PROVIDED HISTORY: dizziness Decision Support Exception - unselect if not a suspected or confirmed emergency medical condition->Emergency Medical Condition (MA) Is the patient ?->No FINDINGS: BRAIN/VENTRICLES: There is no acute intracranial hemorrhage, mass effect, or midline shift. There is satisfactory overall canales-white matter differentiation. The ventricular structures are symmetric and unremarkable. The infratentorial structures are unremarkable. ORBITS: The visualized portion of the orbits demonstrate no acute abnormality. SINUSES: The visualized paranasal sinuses and mastoid air cells demonstrate no acute abnormality. SOFT TISSUES/SKULL: No acute abnormality of the visualized skull or soft tissues. [facility] Pineda Lozada MD - 08/19/2022 EXAMINATION: CT OF THE HEAD WITHOUT CONTRAST 08/19/2022 12:04 pm TECHNIQUE: CT of the head was performed without the administration of intravenous contrast. Automated exposure control, iterative reconstruction, and/or weight based adjustment of the mA/kV was utilized to reduce the radiation dose to as low as reasonably achievable. COMPARISON: None. HISTORY: ORDERING SYSTEM PROVIDED HISTORY: dizziness TECHNOLOGIST PROVIDED HISTORY: dizziness Decision Support Exception - unselect if not a suspected or confirmed emergency medical condition->Emergency Medical Condition (MA) Is the patient ?->No FINDINGS: BRAIN/VENTRICLES: There is no acute intracranial hemorrhage, mass effect, or midline shift. There is satisfactory overall canales-white matter differentiation. The ventricular structures are symmetric and unremarkable. The infratentorial structures are unremarkable. ORBITS: The visualized portion of the orbits demonstrate no acute abnormality. SINUSES: The visualized paranasal sinuses and mastoid air cells demonstrate no acute abnormality. SOFT TISSUES/SKULL: No acute abnormality of the visualized skull or soft tissues. IMPRESSION: No acute intracranial abnormality. [facility] Radiology Study observation (narrative) [facility] CT Head WO ContrastOrdered B y: Pineda Lozada on 08-19-2022 [facility] Work Phone: Carbamazepineon 08-19-2022 Carbamazepine <2.5 Low 4.0-12.0 [facility] Comment on above: Performed By: #### C ARBC #### [facility] [address] [place] [id number] Manager Cash: Karson Mayers MD #### CDP, BMP #### [facility] [address] [place] [address] Manager Cash: Quintin Cooper MD HCG, ,Urineon 08-19 Beta HCG ( test) Ql (U) Negative Normal NEG [facility] Comment on above: Result Comment: Spec imens with hCG levels near the threshold of the test (25 mIU/mL) may give a negative or indeterminate result. In such cases, another test should be performed with a new specimen in 48-72 hours. If early is suspected clinically in this setting, correlation with quantitative serum b-hCG level is suggested. [facility] has confirmed the use of plasma for this test. This has not been cleared or approved by the U.S. Food and Drug Administration. The FDA has determined that such clearance is not necessary. Performed By: #### U AX, UMICAO, CG #### [facility] [address] [place] [address] Manager Cash: Quintin Cooper MD Microscopic Urinalysison Bacteria LM Ql (Urine sed) TRACE Abnormal None [facility] Epithelial cells LM.HPF (Urine sed) [#/Area] 10 TO 20 [facility] Interpretation and review of laboratory results Abnormal [facility] Mucus Ql (Urine sed) 1+ Abnormal None [facility] RBC LM.HPF (Urine sed) [#/Area] 0 TO 2 [facility] WBC LM.HPF (Urine sed) [#/Area] 0 TO 2 [facility] , Urineon 3 Beta HCG ( test) Ql (U) Negative NEGATIVE [facility] Comment on above: Specimens with hCG l evels near the threshold of the test (25 mIU/mL) may give a negative or indeterminate result. In such cases, another test should be performed with a new specimen in 48-72 hours. If early is suspected clinically in this setting, correlation with quantitative serum b-hCG level is suggested. [facility] has confirmed the use of plasma for this test. This has not been cleared or approved by the U.S. Food and Drug Administration. The FDA has determined that such clearance is not necessary. [facility] UA w/Reflex Cultureon 2022 Bilirubin, SemiQt,Ur Negative Normal NEG [facility] Comment on above: Performed By: #### U CHARLIE HERNANDEZ [facility] #### [facility] [address] [place] [address] [place] [address] Manager Cash: Quintin Cooper MD Blood, Urine Negative Normal NEG [facility] Comment on above: Performed By: #### U CHARLIE HERNANDEZ [facility] #### [facility] [address] [place] [address] Manager Cash: Quintin Cooper MD Clarity (U) SLIGHTLY CLOUDY Abnormal CLEAR [facility] Comment on above: Performed By: #### U CHARLIE HERNANDEZ [facility] #### [facility] [address] [place] [address] [place] [address] Manager Cash: Quintin Cooper MD Color (U) Yellow Normal YEL [facility] Comment on above: Performed By: #### U MARY IVONNE, UHCG #### [facility] [address] [place], [place] [phone] Manager Cash: Quintin Cooper MD Glucose Ql (U) Negative Normal NEG [facility] Comment on above: Performed By: #### U AX, UMICAO, UHCG #### [facility] [address] [place] [address] Manager Cash: Quintin Cooper MD Ketones Ql (U) Negative Normal NEG [facility] Comment on above: Performed By: #### U AX, UMICAO, UHCG #### [facility] [address] [place] [address] Dr[place], [place] [phone] Manager Cash: Quintin Cooper MD Leukocyte esterase Test strip Ql (U) Negative Normal NEG [facility] Comment on above: Performed By: #### U AX, UMICAO, UHCG #### [facility] [address] [place] [address] [place] [address] Manager Cash: Quintin Cooper MD Nitrite,Ur Negative Normal NEG [facility] Comment on above: Performed By: #### U AX, UMICAO, UHCG #### [facility] [address] [place] [address] [place] [address] Manager Cash: Quintin Cooper MD PH,Ur 7.0 Normal 5.0-9.0 [facility] Comment on above: Performed By: #### U AX, UMICAO, UHCG #### [facility] [address] [place] [address] Manager Cash: Quintin Cooper MD Protein Ql (U) Negative Normal NEG [facility] Comment on above: Performed By: #### U AX, UMICAO, UHCG #### [facility] [address] [place], [place] [phone] Manager Cash: Quintin Cooper MD Spec. [place],Ur 1.015 Normal 1.010-1.020 [facility] Comment on above: Performed By: #### U MIGNON HERNANDEZ [facility] #### [facility] [address] [place] [address] Manager Cash: Quintin Cooper MD Urobilinogen,Ur Normal Normal NORM [facility] Comment on above: Performed By: #### U [facility] #### [facility] [address] [place] [address] Manager Cash: Quintin Cooper MD Urinalysis with Reflex to Cu ltureon 08-19-2022 Bilirubin Ql (U) Negative NEGATIVE [facility] Clarity (U) SLIGHTLY CLOUDY Abnormal Clear [facility] Color (U) Yellow Yellow [facility] Glucose Test strip (U)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 Patient I have personally spent [20] minutes on this date, directly related to today's patient visit, including pre and post visit work, for this date of service. Time listed does not include time spent on separately billable services. Problem List/Past Medical History Ongoing Anxiety Depression Low serum potassium level Seasonal nasal allergies Historical No qualifying data Procedure/Surgical History wisdom teeth Medications Flonase 50 mcg/inh nasal spray, 1 sprays, Nasal, BID, Not taking hydrOXYzine hydrochloride 25 mg oral tablet, 25 mg= 1 tabs, Oral, q8hr, PRN Latuda 20 mg oral tablet, 20 mg= 1 tabs, Oral, Daily mupirocin 2% topical ointment, 1 sharri, Topical, TID OXcarbazepine 150 mg oral tablet, 150 mg= 1 tabs, Oral, qAM OXcarbazepine 300 mg oral tablet, 300 mg= 1 tabs, Oral, HS (at bedtime) potassium acid phosphate, 1000 mg, Oral sertraline 100 mg oral tablet, 100 mg= 1 tabs, Oral, qAM traZODone 100 mg oral tablet, 100 mg= 1 tabs, Oral, HS (at bedtime) Allergies No Known Allergies No Known Medication Allergies Social History Alcohol Never Home/Environment Lives with Significant other. Sexual Sexually active: Yes. History of sexual abuse: No. Substance Abuse Denies All Tobacco Never (less than 100 in lifetime) Use:. Family History Cancer of colon: Father. Dementia: Grandfather (M). Diabetes: Grandfather (M). Stroke..: Grandfather (M). Thyroid disease: Mother. Electronically signed by Betsy Duran PA-C 08/08/22 12:07 EDT Normal [facility] Anion Gapon 08-05-2022 Anion gap [Moles/Vol] 10.0 mmol/L 8.0 - 16.0 meq/L [facility] [employer] Comment on above: ANION GAP = Sodium - (Chloride + CO2) Performed at [facility] [address] [place] [address] CBC with Auto Differentialon 08-05-2022 Basophils (Bld) [#/Vol] 0.0 10*3/uL [facility] Basophils/100 WBC (Bld) 0.7 % [facility] Eosinophils Absolute 0.0 [facility] Eosinophils/100 WBC (Bld) 1.1 % [facility] Erythrocyte distribution width (RBC) [Entitic vol] 44.0 fL 35.0 - 45.0 fL [facility] [employer] Erythrocyte distribution width (RBC) [Ratio] 13.9 % 11.5 - 14.5 % [facility] Hematocrit (Bld) [Volume fraction] 37.0 % 37.0 - 47.0 % [facility] Hemoglobin (Bld) [Mass/Vol] 11.5 g/dL Low [facility] Immature granulocytes (Bld) [#/Vol] 0.02 10*3/uL [facility] Immature granulocytes/100 WBC (Bld) 0.4 % [facility] Interpretation and review of laboratory results Abnormal [facility] Lymphocytes Absolute 1.3 [facility] Lymphocytes/100 WBC (Bld) 28.3 % [facility] MCH (RBC) [Entitic mass] 27.1 pg 26.0 - 33.0 pg [facility] MCHC (RBC) [Mass/Vol] 31.1 g/dL Low [facility] MCV (RBC) [Entitic vol] 87.1 fL 81.0 - 99.0 fL [facility] Monocytes Absolute 0.3 Low [facility] Monocytes/100 WBC (Bld) 7.2 % B ON [facility] Neutrophils/100 WBC (Bld) 62.3 % [facility] Nucleated RBC/100 WBC (Bld) [Ratio] 0 % /100 wbc [facility] Comment on above: Performed at [facility] [address] [place] [address] Platelet mean volume (Bld) [Entitic vol] 9.4 fL 9.4 - 12.4 fL [facility] Platelets (Bld) [#/Vol] 346 10*3/uL [facility] RBC (Bld) [#/Vol] 4.25 10*6/uL [facility] Segs Absolute 2.8 [facility] WBC (Bld) [#/Vol] 4.5 10*3/uL Low [facility] Comprehensive metabolic 2000 panelon 08-05-2022 Albumin BCG dye [Mass/Vol] 4.2 g/dL 3.5 - 5.1 g/dL [facility] ALP [Catalytic activity/Vol] 81 U/L 38 - 126 U/L [facility] ALT No additional P-5'-P [Catalytic activity/Vol] 11 U/L 11 - 66 U/L [facility] Comment on above: Performed at [facility] [address] [place] [address] AST [Catalytic activity/Vol] 12 U/L 5 - 40 U/L [facility] Bilirubin [Mass/Vol] 0.2 mg/dL Low 0.3 - 1 .2 mg/dL [facility] Calcium [Mass/Vol] 9.0 mg/dL 8.5 - 10. 5 mg/dL [facility] Chloride [Moles/Vol] 101 mmol/L 98 - 11 1 meq/L [facility] CO2 [Moles/Vol] 25 mmol/L 23 - 33 meq/L [facility] Creatinine [Mass/Vol] 0.6 mg/dL 0.4 - 1.2 mg/dL [facility] Glucose [Mass/Vol] 98 mg/dL 70 - 108 mg/dL [facility] Interpretation and review of laboratory results Abnormal [facility] Potassium [Moles/Vol] 4.4 mmol/L 3.5 - 5.2 meq/L [facility] Comment on above: Low level specimen h emolysis is present as indicated by the interference level index on the Malik analyzer. The reported K+ level may be falsely increased. If clinically warranted, recollection of the specimen is suggested. Protein [Mass/Vol] 6.7 g/dL 6.1 - 8.0 g/dL [facility] Sodium [Moles/Vol] 136 mmol/L 135 - 145 meq/L [facility] Urea nitrogen [Mass/Vol] 11 mg/dL 7 - 22 mg/dL [facility] EKG 12-LEADon 08-05-2022 EKG 12-LEAD 69 69 146 88 408 437 51 -6 40 Normal sinus rhythm with sinus arrhythmia Possible Anterior infarct , age undetermined Abnormal ECG No previous ECGs available Confirmed by ALBANIA ANNE MD ([id number]) on 08/05/2022 5:18:43 PM [email or web address]&Date=07-06-2022&Ti me=[id number]& TestType=ECG&Site=3&O utputType=PDF&Ext=PDF Normal [facility] Glomerular Filtration Rate, Estimatedon 08-05-2022 GFR/1.73 sq M.predicted MDRD (S/P/Bld) [Vol rate/Area] - PINF [facility] [employer] Comment on above: Pediatric calculator link https://www.kidney.org/professionals/kdoqi/gfr_calculatorped Effective Dec 03, 2021 These results are not intended for use in patients <18 years of age. eGFR results are calculated without a race factor using the 2020 CKD-EPI equation. Careful clinical correlation is recommended, particularly when comparing to results calculated using previous equations. The CKD-EPI equation is less accurate in patients with extremes of muscle mass, extra-renal metabolism of creatinine, excessive creatine ingestion, or following therapy that affects renal tubular secretion. [place]formed [place] [address] No Panel Informationon 08-05 [facility] TSH DL <= 0.005 mIU/L Qnon 0 08-05-2022 TSH Qn 1.280 m[IU]/L [facility] Comment on above: Performed at [facility] [place] [place] [address] Troponinon 08-05-2022 Troponin T < 0.010 ng/ml [facility] Comment on above: <0.010 ng/ml Normal > or = 0.010 ng/ml Elevated (99%) Consistent with myocardial damage Cardiac troponin values can be elevated by many disease states in addition to acute ischemia. These include, but are not limited to: chronic renal failure, CHF, CVA, pulmonary embolus, COPD, myocardial trauma/surgery, myocarditis, pericarditis, tachycardia, aortic dissection, amyloidosis, sepsis and strenuous exercise. Serial measurement of troponin is strongly recommended as a first step in determining whether a low level elevation represents an acute or chronic condition. [place] [address] ED Note-Physicianon 07-24-19 ED Note-Physician Normal [facility] Comment on above: Result Comment: Elec tronically Signed By: Yan Burnham PA-C\.br\Date and Time Signed: 07/22/22 19:55 EDT\.br\Electronically Co-Signed By: Ishmael Fernandez DO\.br\Date and Time Co-Signed: 07/23/22 03:16 EDT Consent for Treatmenton 07-02 Consent for Treatment [id number] .00CD:127 Normal [facility] ED Clinical Summaryon 2022 ED Clinical Summary Normal Guru hassan [facility] ED Patient Education Noteon 07-22-2022 ED Patient Education Note Normal [facility] ED Patient Summaryon 023 ED Patient Summary Normal [facility] Auto Diffon 07-20-2022 Basophils/100 WBC (Bld) 1.0 % Normal 0.0-2.0 [facility] Comment on above: Order Comment: Order Added by Discern Expert. Performed By: #### 2 694996, 85339981, 16439328, 10473711, 3356872, 3279553, 8235989 ####[facility] [address] [place] [address] Basophils/Leukocytes Auto (Bld) [Pure # fraction] 0.1 E9/L Normal 0.0-0.2 [facility] Comment on above: Order Comment: Order Added by Discern Expert. Performed By: #### 2 212464, 27100651, 06688423, 36252651, 5118041, 1939644, 1986864 ####[address] [place] [address] Eosinophils/100 WBC (Bld) 1.6 % Normal 0.0-8.0 [facility] Comment on above: Order Comment: Order Added by Discern Expert. Performed By: #### 2 449265, 47317164, 58531072, 65462649, 1505372, 4096450, 7659988 ####[facility] [address] [place] [address] Eosinophils/Leukocytes Auto (Bld) [Pure # fraction] 0.1 E9/L Normal 0.0-0.5 [facility] Comment on above: Order Comment: Order Added by Discern Expert. Performed By: #### 2 400902, 62892707, 80143387, 33148546, 6093014, 6344951, 7627236 ####[place] [address] [address] Lymphocytes/100 WBC (Bld) 37.6 % Normal 14.0-50.0 [facility] Comment on above: Order Comment: Order Added by Discern Expert. Performed By: #### 2 651965, 98874561, 77959191, 86752420, 1944572, 9097282, 7075979 ####[address] [address] Lymphocytes/Leukocytes Auto (Bld) [Pure # fraction] 2.5 E9/L Normal 1.0-4.0 [facility] Comment on above: Order Comment: Order Added by Discern Expert. Performed By: #### 2 545899, 41816729, 40596115, 21209112, 9228903, 6095696, 8780136 ####[address] [address] Monocytes/100 WBC (Bld) 7.6 % Normal 4.0-14.0 [facility] Comment on above: Order Comment: Order Added by Discern Expert. Performed By: #### 2 167721, 72800308, 34888991, 30726363, 8754229, 7906909, 0664328 ####[address] [address] Monocytes/Leukocytes Auto (Bld) [Pure # fraction] 0.5 E9/L Normal 0.2-1.0 [facility] Comment on above: Order Comment: Order Added by Discern Expert. Performed By: #### 2 444664, 57591831, 13889393, 55615375, 0660053, 9198865, 0470244 ####[address] [address] Neutrophils/100 WBC (Bld) 52.2 % Normal 36.0-75.0 [facility] Comment on above: Order Comment: Order Added by Discern Expert. Performed By: #### 2 463831, 49648735, 68313914, 31672922, 9238924, 3092017, 9021273 ####[facility] [address] [place] [address] Neutrophils/Leukocytes Auto (Bld) [Pure # fraction] 3.5 E9/L Normal 2.0-7.5 [facility] Comment on above: Order Comment: Order Added by Discern Expert. Performed By: #### 2 738970, 11338827, 81749674, 83556834, 7681915, 8409499, 7775452 ####[facility] [address] [place] [address] BMPon 07-20-2022 Creatinine [Mass/Vol] 0.7 mg/dL Normal 0.5-1.3 [facility] Comment on above: Performed By: #### 2 079689, 52322659, 42491337, 82285554, 7011069, 5077218, 5667259 ####[facility] [address] [place] [address] Urea nitrogen [Mass/Vol] 5 mg/dL Normal 5-21 [facility] Comment on above: Performed By: #### 2 880111, 23626037, 44984163, 42945161, 0628877, 8321761, 6409983 ####[facility] [address] [place] [address] Urea nitrogen/Creatinine [Mass ratio] 7 No Units Low 10-20 [facility] Comment on above: Performed By: #### 2 519269, 90425538, 64147515, 76528700, 5091400, 1312477, 7270125 ####[facility] [address] [place] [address] Anion gap [Moles/Vol] 12 mmol/L Normal 6-16 [facility] Comment on above: Performed By: #### 2 709024, 59635066, 51325175, 54478508, 9040194, 1566131, 5787417 ####[facility] [address] [place] [address] Calcium [Mass/Vol] 8.9 mg/dL Normal 8.9-11.1 [facility] Comment on above: Performed By: #### 2 941041, 30749611, 76001924, 12727745, 1847906, 4801594, 5767447 ####[facility] [address] [place] [address] Chloride [Moles/Vol] 105 mmol/L Normal 101-111 [facility] Comment on above: Performed By: #### 2 087534, 58936306, 78169358, 25172435, 6589521, 1379622, 1996018 ####[facility] [address] [place] [address] CO2 [Moles/Vol] 24 mmol/L Normal 21-31 [facility] Comment on above: Performed By: #### 2 594381, 26444354, 73613081, 38051291, 1065934, 7975047, 1694768 ####[facility] [address] [place] [address] Glucose [Mass/Vol] 98 mg/dL Normal 55-199 [facility] Comment on above: Result Comment: If t his glucose result represents a fasting glucose, interpretation should refer to the following reference range: 55-99 mg/dL Performed By: #### 2 367231, 23814376, 63644869, 15365685, 3400443, 6039922, 1050226 ####[facility] [address] [place] [address] Potassium [Moles/Vol] 3.3 mmol/L Low 3.5-5.3 [facility] Comment on above: Performed By: #### 2 028702, 94722117, 84690717, 18176376, 8015309, 8967807, 6442612 ####[facility] [address] [place] [address] Sodium [Moles/Vol] 138 mmol/L Normal 135-145 [facility] Comment on above: Performed By: #### 2 606701, 98392782, 63045023, 37673237, 7002537, 3023216, 6132756 ####[facility] [address] [place] [address] CBC w/ Auto Diffon 3 Erythrocyte distribution width (RBC) [Ratio] 16.3 % High 10.9-14.2 [facility] Comment on above: Performed By: #### 2 809736, 19983539, 23947376, 82023613, 2847243, 6088181, 6604801 ####[facility] [address] [place] [address] Hematocrit (Bld) [Volume fraction] 36.2 % Normal 34.0-46.0 [facility] Comment on above: Performed By: #### 2 511140, 43885124, 51800542, 01310194, 2145448, 5671294, 8113998 ####[address] [place] [address] Hemoglobin (Bld) [Mass/Vol] 11.5 g/dL Low 12.0-16.0 [facility] Comment on above: Performed By: #### 2 416046, 89175361, 29844093, 54452909, 4438851, 6067321, 8010034 ####[address] [place] [address] MCH (RBC) [Entitic mass] 26.1 pg Low 27.0-34.0 [facility] Comment on above: Performed By: #### 2 169394, 18634836, 79133180, 44667452, 9531708, 9797043, 9625365 ####[address] [place] [address] MCHC (RBC) [Mass/Vol] 31.6 g/dL Normal 31.4-36.0 [facility] Comment on above: Performed By: #### 2 740086, 31052044, 83770514, 50228565, 3260644, 9362301, 3372757 ####[address] [place] [address] MCV (RBC) [Entitic vol] 82.6 fL Normal 80.0-100.0 [facility] Comment on above: Performed By: #### 2 900643, 44564378, 36761230, 42445459, 1629086, 0102263, 1358974 ####[address] [address] Platelet mean volume (Bld) [Entitic vol] 7.4 fL Normal 6.4-10.8 [facility] Comment on above: Performed By: #### 2 040496, 03552996, 05278992, 77798827, 4603520, 0511934, 9483371 ####[address] [address] Platelets (Bld) [#/Vol] 400.0 E9/L Normal 150.0-500.0 [facility] Comment on above: Performed By: #### 2 299535, 38947623, 83959471, 83241524, 9445853, 6261563, 5544395 ####[address] [address] RBC (Bld) [#/Vol] 4.4 E12/L Normal 4.3-5.9 [facility] Comment on above: Performed By: #### 2 855313, 35365143, 08084528, 88038120, 7284856, 4273784, 2485943 ####[address] [address] WBC corrected for nucl RBC Auto (Bld) [#/Vol] 6.6 E9/L Normal 4.0-11.0 [facility] Comment on above: Performed By: #### 2 860798, 08916180, 35876273, 94910459, 5022030, 7257146, 4656360 ####[address] [address] Consent for Treatmenton 07-02 Consent for Treatment [id number]# 1.00CD:127 Normal [facility] Discharge Instructionson Discharge Instructions [id number]#1 .00CD:127 Normal [facility] ED Clinical Summaryon 2022 ED Clinical Summary Normal [facility] ED Note-Physicianon 07-21-19 ED Note-Physician Normal [facility] Comment on above: Result Comment: Elec tronically Signed By: Edwin Jolley DO.br\Date and Time Signed: 07/20/22 00:00 EDT ED Patient Education Noteon 07-20-2022 ED Patient Education Note Normal [facility] ED Patient Summaryon 023 ED Patient Summary Normal [facility] Magnesiumon 07-20-2022 Magnesium [Mass/Vol] 1.9 mg/dL Normal 1.3-2.4 [facility] Comment on above: Performed By: #### 2 522552, 51331398, 75666830, 65892008, 8243968, 7461688, 9441859 ####[facility] [address] [place] [address] Monitor Recordon 07-20-2022 Monitor Record [id number]# 1.00CD:127 Normal [facility] PT & PTTon 07-20-2022 aPTT Coag (PPP) [Time] 34.2 second(s) Normal 25.1-36.5 [facility] Comment on above: Result Comment: Para meter 15 days - 4 weeks 1 - 5 months 6 - 11 months 1 - 5 years 6 - 10 years 11 - 17 years PTT Mean: 35.4 (27.6-45.6) Mean: 33.5 (24.8-40.7) Mean: 32.4 (25.1-40.7) Mean: 31.6 (24.0-39.2) Mean: 31.6 (26.9-38.7) Mean: 31.0 (24.6-38.4) Pediatric Reference ranges were obtained from a study by austyn Bacon al. prepared from 1437 samples obtained at 7 different centers using the same coagulation reagent and instrumentation as [facility]. Currently there are no coagulation studies available worldwide for children to 14 days, and no normal ranges. Heparin therapeutic range (represented by Anti-Factor Xa activity of 0.2 - 0.4 U/mL) corresponds to PTT of 56.6 - 109.0 sec. Performed By: #### 2 662702, 02747693, 40635961, 82177063, 4068097, 1824837, 5288996 ####[facility] [address] [place] [address] INR Coag (PPP) [Relative time] 0.9 {INR} Invalid Interpretation Code [facility] Comment on above: Result Comment: INR results are specifically intended to assess patients stabilized on long-term Anticoagulation therapy suggested INR?s ?Less Intensive Anticoagulation? 2.0 ? 3.0Conventional Range 3.0 ? 4.5 Performed By: #### 2 921057, 74958052, 26731211, 64525349, 0584603, 7560089, 6066729 ####[facility] [address] [place] [address] PT Coag (PPP) [Time] 10.4 second(s) Normal 9.4-12.5 [facility] Comment on above: Result Comment: 15 d ays - 4 weeks 1 - 5 months 6 -11 months 1 ? 5 years 6 ? 10 years 11 -17 years Mean: 11.2 (9.5 ? 12.6) Mean: 11.0 (9.7 ? 12.8) Mean: 11.0 (9.8 ? 13.0) Mean: 11.3 (9.9 ? 13.4) Mean: 11.7 (10.0 ? 14.6) Mean: 11.8 (10.0 - 14.1) Pediatric Reference ranges were obtained from a study by austyn Bacon al. prepared from 1437 samples obtained at 7 different centers using the same coagulation reagent and instrumentation as [facility]. Currently there are no coagulation studies available worldwide for children to 14 days, and no normal ranges. Performed By: #### 2 402258, 50646007, 92321346, 50589394, 3653277, 3732619, 4069529 ####[facility] [address] [place] [address] Troponin 0 Hr.on 07-20-2022 Troponin I.cardiac [Mass/Vol] ng/mL Low 10.10-27.10 [facility] Comment on above: Result Comment: The 95% CI (Confidence Interval) PPV (Positive Predictive Value) for myocardial infarction in females is 38 pg/mL, in males 51 pg/mL. The results should be used in conjunction with clinical conditions of myocardial infarction.(Access High Sensitivity Troponin I Instructions For Use, [employer]velstay, October 2017) Performed By: #### 2 730479, 25544536, 07550524, 39367924, 0241854, 3123579, 7387922 ####[facility] [address] [place] [address] XR Chest Single Viewon 07-20 XR Chest Single View Normal [facility] eGFRon 07-20-2022 GFR/1.73 sq M.predicted among non-blacks MDRD (S/P/Bld) [Vol rate/Area] 110 mL/min/1.73 m2 Normal >=59 [facility] Comment on above: Order Comment: Order added by Discern Expert. Result Comment: Report Programmer akbar kidney disease could be indicated at eGFR's of less than 60 mL/min/1.73m2. Kidney failure is indicated at less than 15 mL/min/1.73m2. Performed By: #### 2 592444, 37700975, 09184895, 36205081, 5304463, 0356079, 6636640 ####[facility] [address] [place] [address] Consent for Treatmenton 07-01 Consent for Treatment [id number]#1 .00CD:127 Normal [facility] Discharge Instructionson Discharge Instructions [id number]# 1.00CD:127 Normal [facility] ECG 12 lead ECGon 07-19-2022 ECG 12 lead ECG [facility] [address] Electrocardiograph Report Signed Patient: Rosangela Lindo MR#: [id number] : 1980 Acct:[id number] Age/Sex: 42 / F ADM Date: 07/19/22 Loc: ER Room: Type: [facility] ER Attending Dr: Ordering Provider: Ace Frankel DO Date of Service: 07/19/22 ECG/ECG 12 lead ECG: Chest Pain Copies to: Test Reason : Blood Pressure : / mmHG Vent. Rate : 091 BPM Atrial Rate : 091 BPM P-R Int : 150 ms QRS Dur : 086 ms QT Int : 360 ms P-R-T Axes : 049 077 026 degrees QTc Int : 442 ms Normal sinus rhythm Low voltage QRS Cannot rule out Anterior infarct (cited on or before 21-SEP-2021) Abnormal ECG When compared with ECG of 21-SEP-2021 13:17, Questionable change in initial forces of Anterior leads Confirmed by BRAIN NICOLE MD ([id number]) on 07/22/2022 11:46:38 AM Referred By: Electronically Signed By:BRAIN NICOLE MD Transcribed By: MUS Signed By Brain Nicole MD 0 07/22/22 1146 Normal [facility] ED Clinical Summaryon 2022 ED Clinical Summary Normal [facility] ED Note-Physicianon 07-20-19 ED Note-Physician Normal [facility] Comment on above: Result Comment: Elec tronically Signed By: David June PA-C\.br\Date and Time Signed: 07/19/22 09:21 EDT\.br\Electronically Co-Signed By: Alan Zhu DO\.br\Date and Time Co-Signed: 07/19/22 19:22 EDT ED Patient Education Noteon 07-19-2022 ED Patient Education Note Normal [facility] ED Patient Summaryon 05-19-2 023 ED Patient Summary Normal [facility] Prescriptions/Work Noteson 0 07-19-2022 Prescriptions/Work Notes [id number]# 1.00CD:127 Normal [facility] Prescriptions/Work Notes [id number]# 1.00CD:127 Normal [facility] Comment on above: Other Comment: not c ompleted .eGFRon 07-16-2022 GFR/1.73 sq M.predicted MDRD (S/P/Bld) [Vol rate/Area] mL/min/{1.73_m2} Normal >=60 [facility] Comment on above: Result Comment: [facility] Laboratories have implemented the eGFR calculation approach that does not have a coefficient for race and that conforms to the NKF-ASN Task Force Recommendations. Stages of Chronic Kidney Disease GFR Stage 3a Mild to moderate loss of kidney function 59 to 45 Stage 3b Moderate to severe loss of kidney function 44 to 33 Stage 4 Severe loss of kidney function 29 to 15 Stage 5 Kidney failure Less than 15 GFR calculated using the CKD-Epi Creatinine Equation (2020): eGFR = 142 X min(SCr/?, 1)? X max(SCr /?, 1)-1.200 X 0.9938Age X 1.012 [if female] Abbreviations/Units: eGFR (estimated glomerular filtration rate) = mL/min/1.73 m2 SCr (standardized serum creatinine) = mg/dL ? = 0.7 (females) or 0.9 (males) ? = -0.241 (females) or -0.302 (males) min = indicates the minimum of SCr/? or 1 max = indicates the maximum of SCr/? or 1 Age = years Performed By: #### E GFR #### [facility] [address] [place] [address] CBC w/ Diffon 07-16-2022 Erythrocyte distribution width (RBC) [Ratio] 16.0 % High 11.6-14.8 [facility] Comment on above: Performed By: #### C BC ####[facility] [place] [address] Hematocrit (Bld) [Volume fraction] 34.4 % Low 36.0-46.0 [facility] Comment on above: Performed By: #### C BC ####[address] [address] Hemoglobin (Bld) [Mass/Vol] 11.5 g/dL Low 12.0-16.0 [facility] Comment on above: Performed By: #### C BC ####[address] [address] MCH (RBC) [Entitic mass] 27.5 pg Normal 27.0-35.0 [facility] Comment on above: Performed By: #### C BC ####[address] [address] MCHC 33.3 % Normal 31.0-37.0 [facility] Comment on above: Performed By: #### C BC ####[address] [address] MCV (RBC) [Entitic vol] 82.5 fL Normal 80.0-100.0 [facility] Comment on above: Performed By: #### C BC ####[address] [address] Platelet 372 x10*3/mcL High 150-350 [facility] Comment on above: Performed By: #### C BC ####[address] [address] Platelet mean volume (Bld) [Entitic vol] 7.7 fL Normal 6.7-10.6 [facility] Comment on above: Performed By: #### C BC ####[address] [address] RBC 4.17 x10*6/mcL Normal 3.80-5.20 [facility] Comment on above: Performed By: #### C BC ####[address] [address] WBC 4.6 x10*3/mcL Normal 4.5-11.0 [facility] Comment on above: Performed By: #### C BC ####[facility] [place] [address] CMPon 07-16-2022 Albumin [Mass/Vol] 3.6 g/dL Normal 3.2-4.9 [facility] Comment on above: Performed By: #### C D:[id number] #### [address] [address] Albumin/Globulin [Mass ratio] 1.1 {ratio} Normal 1.1-2.2 [facility] Comment on above: Performed By: #### C D:[id number] #### [place] [address] Alk Phos 70 IU/L Normal 32-91 [facility] Comment on above: Performed By: #### C D:[id number] #### [address] [address] ALT [Catalytic activity/Vol] 14 U/L Normal 14-54 [facility] Comment on above: Performed By: #### C D:[id number] #### [address] [address] Anion gap [Moles/Vol] 7 mmol/L Normal 7-17 [facility] Comment on above: Performed By: #### C D:[id number] #### [place] [address] AST [Catalytic activity/Vol] 16 U/L Normal 15-41 [facility] Comment on above: Performed By: #### C D:[id number] #### [address] [address] Bili Total 0.3 mg/dL Normal 0.3-1.2 [facility] Comment on above: Performed By: #### C D:[id number] #### [address] [address] Calcium [Mass/Vol] 8.2 mg/dL Low 8.5-10.3 [facility] Comment on above: Performed By: #### C D:[id number] #### [address] [address] Chloride [Moles/Vol] 104 mmol/L Normal 98-110 [facility] Comment on above: Performed By: #### C D:[id number] #### [address] [address] CO2 [Moles/Vol] 24 mmol/L Normal 22-32 [facility] Comment on above: Performed By: #### C D:[id number] #### [address] [address] Creatinine [Mass/Vol] 0.73 mg/dL Normal 0.44-1.03 [facility] Comment on above: Performed By: #### C D:[id number] #### [address] [address] Glucose [Mass/Vol] 92 mg/dL Normal 70-99 [facility] Comment on above: Performed By: #### C D:[id number] #### [address] [address] Potassium [Moles/Vol] 3.4 mmol/L Normal 3.4-4.8 [facility] Comment on above: Performed By: #### C D:[id number] #### [address] [address] Protein [Mass/Vol] 6.8 g/dL Normal 6.5-8.1 [facility] Comment on above: Performed By: #### C D:[id number] #### [address] [address] Sodium [Moles/Vol] 132 mmol/L Low 133-142 [facility] Comment on above: Performed By: #### C D:[id number] #### [address] [address] Urea nitrogen [Mass/Vol] 10 mg/dL Normal 8-26 [facility] Comment on above: Performed By: #### C D:[id number] #### [address] [address] Urea nitrogen/Creatinine [Mass ratio] 13.7 mg/mg Normal 10.0-20.0 [facility] Comment on above: Performed By: #### C D:[id number] #### [address] [address] Diff Autoon 07-16-2022 Baso Absolute 0.0 x10*3/mcL Normal 0.0-0.2 [facility] Comment on above: Performed By: #### P TT #### [address] [address] Basophils/100 WBC (Bld) 0.8 % Normal 0.0-1.5 B [facility] Comment on above: Performed By: #### P TT #### [address] [address] Eos Absolute 0.1 x10*3/mcL Normal 0.0-0.4 [facility] Comment on above: Performed By: #### P TT #### [address] [address] Eosinophils/100 WBC (Bld) 2.5 % Normal 0.0-5.4 [facility] Comment on above: Performed By: #### P TT #### [address] [address] Lymph Absolute 1.4 x10*3/mcL Normal 1.0-4.8 [facility] Comment on above: Performed By: #### P TT #### [address] [address] Lymphocytes/100 WBC (Bld) 30.5 % Normal 27.2-40.8 [facility] Comment on above: Performed By: #### P TT #### [address] [address] [place] Absolute 0.4 x10*3/mcL Normal 0.1-1.1 [facility] [facility] Comment on above: Performed By: #### P TT #### [address] [address] Monocytes/100 WBC (Bld) 8.5 % Normal 3.7-11.9 B [facility] Comment on above: Performed By: #### P TT #### [address] [address] Neutro Absolute 2.6 x10*3/mcL Normal 1.8-7.7 [facility] Comment on above: Performed By: #### P TT #### [address] [address] Neutro Auto 57.7 % Normal 47.2-70.8 [facility] Comment on above: Performed By: #### P TT #### [address] [address] ED Clinical Summaryon 2022 ED Clinical Summary [address] [id number] ED Clinical Summary Person Information Name: Rosangela Lindo Cristy/[facility] Age: 42 Years : 1980 Sex: Female PCP: Marital Status: Phone: Race: White Ethnicity: Not or Language: Luxembourger Visit Reason: Anxiety/chest pain; Depression; Depression Acuity: 2 Enc Type: Emergency Med Service: Emergency Medicine Arrival: 07/16/2022 08:59:12 Discharge: 07/16/2022 12:15:00 LOS: 000 03:16 Checkin: 07/16/2022 08:59:12 Checkout: 07/16/2022 12:15:00 Dispo Type: Home or Self Care Address: [address] [place], [place] [id number] Provider Notes: Diagnosis: 1:Atypical chest pain Problems No Problems Documented Smoking Status: Smoking Status Never (less than 100 in lifetime) Functional Status: Sensory Deficits: History of Falls: Mobility Assistance Prior to Admission: ADLs: Current Level of Assistance for Self-Care/Mobility: Cognitive Status: Allergies No Known Medication Allergies Laboratory or Other Results This Visit (last charted value for your 07/16/2022 visit) Hematology 07/16/2022 9:33 AM WBC: 4.6 x10 RBC: 4.17 x10 Neutro Auto: 57.7 % -- Normal range between ( 47.2 and 70.8 ) Lymph Auto: 30.5 % -- Normal range between ( 27.2 and 40.8 ) [place] Auto: 8.5 % -- Normal range between ( 3.7 and 11.9 ) Eos Auto: 2.5 % -- Normal range between ( 0.0 and 5.4 ) Basophil Auto: 0.8 % -- Normal range between ( 0.0 and 1.5 ) Baso Absolute: 0.0 x10 MCV: 82.5 fL -- Normal range between ( 80.0 and 100.0 ) MCHC: 33.3 % -- Normal range between ( 31.0 and 37.0 ) Lymph Absolute: 1.4 x10 Hct: 34.4 % -- Normal range between ( 36.0 and 46.0 ) [place] Absolute: 0.4 x10 MCH: 27.5 pg -- Normal range between ( 27.0 and 35.0 ) Neutro Absolute: 2.6 x10 Hgb: 11.5 g/dL -- Normal range between ( 12.0 and 16.0 ) Mean Platelet Volume: 7.7 fL -- Normal range between ( 6.7 and 10.6 ) Platelet: 372 x10 Eos Absolute: 0.1 x10 RDW: 16.0 % -- Normal range between ( 11.6 and 14.8 ) Coagulation 07/16/2022 9:33 AM PT: 10.0 seconds -- Normal range between ( 9.3 and 11.9 ) INR: 0.9 ratio PTT: 25.6 seconds -- Normal range between ( 20.6 and 29.2 ) Chemistry 07/16/2022 9:33 AM Creatinine Lvl: 0.73 mg/dL -- Normal range between ( 0.44 and 1.03 ) BUN: 10 mg/dL -- Normal range between ( 8 and 26 ) Glucose Lvl: 92 mg/dL -- Normal range between ( 70 and 99 ) Potassium Lvl: 3.4 mmol/L -- Normal range between ( 3.4 and 4.8 ) AST: 16 IU/L -- Normal range between ( 15 and 41 ) ALT: 14 IU/L -- Normal range between ( 14 and 54 ) Troponin-I: <0.03 ng/mL -- Normal range between ( 0.00 and 0.03 ) Sodium Lvl: 132 mmol/L -- Normal range between ( 133 and 142 ) Calcium Lvl: 8.2 mg/dL -- Normal range between ( 8.5 and 10.3 ) Albumin Lvl: 3.6 g/dL -- Normal range between ( 3.2 and 4.9 ) Total Protein: 6.8 g/dL -- Normal range between ( 6.5 and 8.1 ) Bili Total: 0.3 mg/dL -- Normal range between ( 0.3 and 1.2 ) Alk Phos: 70 IU/L -- Normal range between ( 32 and 91 ) Myoglobin: 15.4 Chloride: 104 mmol/L -- Normal range between ( 98 and 110 ) CO2: 24 mmol/L -- Normal range between ( 22 and 32 ) Anion Gap: 7 -- Normal range between ( 7 and 17 ) TSH: 1.75 mcIU/mL -- Normal range between ( 0.45 and 5.33 ) Estimated GFR: >60 mL/min/1.73m? BUN Crea Ratio: 13.7 -- Normal range between ( 10.0 and 20.0 ) AG Ratio: 1.1 -- Normal range between ( 1.1 and 2.2 ) Toxicology 07/16/2022 9:33 AM Ethanol, Plasma: <10 mg/dL Diagnostic Radiology 07/16/2022 9:56 AM XR Chest 1 View: XR Chest 1 View Measurements: Height: Weight: 83.4 kg Blood Pressure: /83 mmHg BMI: Procedures No Procedures Documented Immunizations No Immunizations Documented This Visit Final Med List: Medications that have not changed Other Medications fluticasone nasal (Flonase 50 mcg/inh nasal spray) 1 Sprays Nasal (into the nose) 2 times a day. Refills: 0. Last Dose: ____ hydrOXYzine (hydrOXYzine hydrochloride 25 mg oral tablet) 1 Tabs Oral (given by mouth) every 8 hours as needed as needed for anxiety. Last Dose: ____ lurasidone (Latuda 20 mg oral tablet) 1 Tabs Oral (given by mouth) every day. Last Dose: ____ OXcarbazepine (OXcarbazepine 150 mg oral tablet) 1 Tabs Oral (given by mouth) once a day (in the morning). Last Dose: ____ OXcarbazepine (OXcarbazepine 300 mg oral tablet) 1 Tabs Oral (given by mouth) once a day (at bedtime). Last Dose: ____ sertraline (sertraline 100 mg oral tablet) 1 Tabs Oral (given by mouth) once a day (in the morning). Last Dose: ____ traZODone (traZODone 100 mg oral tablet) 1 Tabs Oral (given by mouth) once a day (at bedtime). Last Dose: ____ Other Medications fluticasone nasal (Flonase 50 mcg/inh nasa (more content not included)... Normal [facility] ED Note-Physicianon 07-17-19 ED Note-Physician Chief Complaint My chest has been aching from stress and anxiety, and Kathleen also been having thoughts I shouldnt be having Denies SI/HI History of Present Illness Patient is a pleasant 42-year-old lady with history of anxiety and depression who presented to the emergency department because of retrosternal chest pain. Patient reports that she is under a lot of stress and a lot of anxiety and these things are causing her to have chest aching. She said that she is having a lot of negative thoughts that she should not be having and she is so stressed out to the point where she is having retrosternal chest pain. She said that this chest pains have been ongoing for more than 2 months now. Eventually she decided to come to the emergency department for checkup. Here in the emergency department she states that her pain is only on the retrosternal area nonradiating. She attributes the chest pain to stress. She does not have cardiovascular risk factors. She states that she has no known precipitating or aggravating factors. Her pain is only mild but associated with stress. She has no associated cough congestion or chest pain in the rest of the chest. She denies any features to suggest chest pain of GI origin. She denies associated palpitations diaphoresis orthopnea proximal nocturnal dyspnea or leg swelling. Pain is not reproducible is not pleuritic is not positional. She has no other associated cardiorespiratory symptoms. She denies any associated nausea vomiting or diarrhea or abdominal pain. She has no stated flank pains dysuria urgency or any other GI/ symptoms. She denies headache neck pain or back pain and no associated musculoskeletal dermatologic or neurologic symptoms. Clinically she looks well she is not distress she has an otherwise normal exam. Patient reports that she sees both a counselor and a psychiatrist. She has been constantly in touch with both the providers but she declines to give me the details of the stress and the details of encounters with her psychiatrist and counselors at this time. She said that she just wanted to make sure she does not have any problems with her chest and she will continue the counseling and treatments as provided by her psychiatrist. She denies any homicidal suicidal ideations. She denies hallucinations or delusions. She denies any psychotic features at this time. Clinically she appears well her behavior is normal cognition and memory is normal and she does not appear to be in any emotional distress and she does not exhibit any psychotic features. Initial EKG is normal sinus rhythm 73 bpm normal intervals QTc of 430 and otherwise normal EKG. Review of Systems As reviewed in the HPI. All other systems reviewed are negative or normal. Physical Exam CONSTITUTIONAL: [no apparent distress, well appearing] SKIN: [warm, dry, no jaundice, hives or petechiae] EYES: [pupils are equally round, extraocular movements intact without nystagmus, clear conjunctiva, non-icteric sclera] HENT: [normocephalic, atraumatic, moist mucus membranes, oropharynx clear without exudates] NECK: [Nontender and supple with no nuchal rigidity, no lymphadenopathy, full range of motion] PULMONARY: [clear to auscultation without wheezes, rhonchi, or rales, normal excursion, no accessory muscle use and no stridor] CARDIOVASCULAR: [regular rate, rhythm, normal S1 and S2. No appreciated murmurs. Strong radial pulses with intact distal perfusion] GASTROINTESTINAL: [soft, non-tender, non-distended, no palpable masses, no rebound or guarding] GENITOURINARY: [No costovertebral angle tenderness to palpation] LYMPHATICS: [no edema in lower extremities, no lymphadenopathy] MUSCULOSKELETAL: [Extremities are nontender to palpation and have no gross deformity, no edema, redness, or swelling] NEUROLOGIC: [alert and oriented x 3, GCS 15, normal mentation and speech. Moves all extremities x 4 without motor or sensory deficit . PSYCHIATRIC: [normal mood and affect, thought process is clear and linear] Vitals & Measurements T: 36.5 ?C (Oral) HR: 76 (Peripheral) RR: 18 BP: 116/83 SpO2: 97% HT: 157.5 cm WT: 83.4 kg (Dosing) Additional Vitals No qualifying data available. Procedure No qualifying data available. ASA Documentation Medical Decision Making Patient is a pleasant 42-year-old lady with history of anxiety and depression who presented to the emergency department because of retrosternal chest pain. Patient reports that she is under a lot of stress and a lot of anxiety and these things are causing her to have chest aching. She said that she is having a lot of negative thoughts that she should not be having and she is so stressed out to the point where she is having retrosternal chest pain. She said that this chest pains have been ongoing for more than 2 months now. Eventually she decided to come to the emergency department for checkup. Here in the emergency department she states that her pain is only on the retrosternal area nonradiating. She attributes th (more content not included)... Normal [facility] ED Note-Physician Chief Complaint My chest has been aching from stress and anxiety, and Kathleen also been having thoughts I shouldnt be having Denies SI/HI Vitals & Measurements T: 36.5 ?C (Oral) HR: 76 (Peripheral) RR: 18 BP: 116/83 SpO2: 97% HT: 157.5 cm WT: 83.4 kg (Dosing) Additional Vitals No qualifying data available. Procedure No qualifying data available. ASA Documentation Assessment/Plan Anxiety/chest pain (Complaint of) Depression (Complaint of) Orders: Complete Blood Count w/ Differential Comprehensive Metabolic Panel Drug Screen Comprehensive, Urine EKG Ethanol Level Myoglobin PTINR PTT Thyroid Stimulating Hormone Troponin-I Urinalysis with Culture, if indicated XR Chest 1 View Refresh vitals and sections below: Problem List/Past Medical History Ongoing Anxiety Depression Seasonal nasal allergies Historical No qualifying data Procedure/Surgical History wisdom teeth Medications Inpatient No active inpatient medications Home Flonase 50 mcg/inh nasal spray, 1 sprays, Nasal, BID Latuda 20 mg oral tablet, 20 mg= 1 tabs, Oral, Daily OXcarbazepine 150 mg oral tablet, 300 mg= 2 tabs, Oral, HS (at bedtime) OXcarbazepine 150 mg oral tablet, 150 mg= 1 tabs, Oral, Daily Zoloft, Oral, Daily Allergies No Known Medication Allergies Social History Alcohol Never Home/Environment Lives with Significant other. Sexual Sexually active: Yes. History of sexual abuse: No. Substance Abuse Denies All Tobacco Never (less than 100 in lifetime) Use:. Family History Cancer of colon: Father. Dementia: Grandfather (M). Diabetes: Grandfather (M). Stroke..: Grandfather (M). Thyroid disease: Mother. Diagnostic Results Electronically signed by Grant Eden MD 07/16/22 09:26 EDT Normal [facility] Ethanolon 07-16-2022 Ethanol, Plasma <10 Normal <=9 [facility] Comment on above: Result Comment: To c onvert mg/dL to g/dL, divide result by 1,000. Legal limit of intoxication is 80 mg/dL (0.08 g/dL). Performed By: #### C BC #### [address] [address] Myoglobinon 07-16-2022 Myoglobin [Mass/Vol] 15.4 ng/mL Normal [facility] Comment on above: Performed By: #### C [id number] #### [address] [address] PTon 07-16-2022 INR Coag (PPP) [Relative time] 0.9 {INR} Normal <=3.5 [facility] Comment on above: Result Comment: INR has no normal range. INR Therapeutic range is: 2.0-3.0 (AF, CVA, TIAs, DVT prophylaxis, acute DVT) 2.5-3.5 [facility], recurrent [facility]/emboli) Performed By: #### . Urinalysis Microscopic Auto #### [address] [address] PT Coag (PPP) [Time] 10.0 s Normal 9.3-11.9 [facility] Comment on above: Performed By: #### . Urinalysis Microscopic Auto #### [address] [address] PTTon 07-16-2022 aPTT Coag (Bld) [Time] 25.6 s Normal 20.6-29.2 [facility] Comment on above: Performed By: #### P TT #### [address] [address] TSHon 07-16-2022 TSH Qn 1.75 m[IU]/L Normal 0.45-5.33 [facility] Comment on above: Result Comment: Refe rence Ranges for individuals from to 18 years of age were obtained from The Brooke Plascencia Handbook (20 ed) published by [facility]. Reference Ranges for Females: Females, 1st Trimester 0.05 ? 3.7 uIU/mL Females, 2nd Trimester 0.31 ? 4.35 uIU/mL Females, 3rd Trimester 0.41 ? 5.18 uIU/mL Performed By: #### T SH ####[address] [address] Troponin-Ion 07-16-2022 Troponin I.cardiac [Mass/Vol] ng/mL Normal 0.00-0.03 [facility] Comment on above: Result Comment: An i ncreased Troponin-I value, in the absence of myocardial ischemia, may indicate other etiologies of cardiac damage. Performed By: #### T ROP ####[address] [address] XR Chest 1 Viewon 07-16-2022 XR Chest 1 View EXAM: XR Chest 1 Vie w HISTORY: . Chest pain, . COMPARISON: 04/22/2022 TECHNIQUE: Single view of the chest. FINDINGS: This is an expiratory chest. Heart and vascularity are unremarkable. Lungs are free of focal infiltrates. Grossly no bony abnormality is appreciated. Impression: No acute heart or lung disease identified. Final Dictated by: Quintin Delacruz MD Dictated DT/TM: 07/16/2022 10:00 am Signed by: Quintin Delacruz MD Signed (Electronic Signature): 07/16/2022 10:01 am (If Report Is Signed, Electronically Signed in Other Vendor System) Normal [facility] Auto Diffon 07-14-2022 Basophils/100 WBC (Bld) 0.5 % Normal 0.0-2.0 [facility] Comment on above: Order Comment: Order Added by Discern Expert. Performed By: #### 2 867531, 9289464, 74154608, 7090679, 4729352, 8725319 ####[facility] [address] [place] [address] Basophils/Leukocytes Auto (Bld) [Pure # fraction] 0.0 E9/L Normal 0.0-0.2 [facility] Comment on above: Order Comment: Order Added by Discern Expert. Performed By: #### 2 357385, 2032468, 40247748, 5777049, 1382295, 3405400 ####[facility] [address] [place] [address] Eosinophils/100 WBC (Bld) 2.8 % Normal 0.0-8.0 [facility] Comment on above: Order Comment: Order Added by Discern Expert. Performed By: #### 2 920824, 7116930, 16341717, 8240042, 2188587, 1757509 ####[facility] [address] [place] [address] Eosinophils/Leukocytes Auto (Bld) [Pure # fraction] 0.1 E9/L Normal 0.0-0.5 [facility] Comment on above: Order Comment: Order Added by Discern Expert. Performed By: #### 2 346040, 1383439, 22067588, 7766067, 5276605, 3109296 ####[address] [address] Lymphocytes/100 WBC (Bld) 37.8 % Normal 14.0-50.0 [facility] Comment on above: Order Comment: Order Added by Discern Expert. Performed By: #### 2 835449, 9269581, 76284509, 2280880, 0511297, 9458652 ####[address] [address] Lymphocytes/Leukocytes Auto (Bld) [Pure # fraction] 2.0 E9/L Normal 1.0-4.0 [facility] Comment on above: Order Comment: Order Added by Discern Expert. Performed By: #### 2 938339, 5193004, 02321638, 7691248, 1695264, 5387918 ####[address] [address] Monocytes/100 WBC (Bld) 8.4 % Normal 4.0-14.0 [facility] Comment on above: Order Comment: Order Added by Discern Expert. Performed By: #### 2 828889, 8003662, 88679845, 4195933, 7816220, 5443805 ####[address] [address] Monocytes/Leukocytes Auto (Bld) [Pure # fraction] 0.4 E9/L Normal 0.2-1.0 [facility] Comment on above: Order Comment: Order Added by Discern Expert. Performed By: #### 2 898583, 7896028, 32249403, 6331688, 8943936, 6209523 ####[address] [address] Neutrophils/100 WBC (Bld) 50.5 % Normal 36.0-75.0 [facility] Comment on above: Order Comment: Order Added by Discern Expert. Performed By: #### 2 584326, 8393564, 80395578, 4119036, 9998258, 3885992 ####[facility] [address] [place] [address] Neutrophils/Leukocytes Auto (Bld) [Pure # fraction] 2.6 E9/L Normal 2.0-7.5 [facility] Comment on above: Order Comment: Order Added by Discern Expert. Performed By: #### 2 074097, 0153489, 03300082, 7683824, 6811867, 8188185 ####[address] [place] [address] B hCG Qualon 07-14-2022 Beta hCG Ql Negative Normal [facility] Comment on above: Performed By: #### 2 [id number] ####[address] [place] [address] BMPon 07-14-2022 Creatinine [Mass/Vol] 0.8 mg/dL Normal 0.5-1.3 [facility] Comment on above: Performed By: #### 2 259688, 5817784, 20740502, 5494839, 2742738, 6805668 ####[facility] [address] [place] [address] Urea nitrogen [Mass/Vol] 12 mg/dL Normal 5-21 [facility] Comment on above: Performed By: #### 2 322979, 0006053, 11490707, 1486197, 6108723, 8850721 ####[address] [place] [address] Urea nitrogen/Creatinine [Mass ratio] 15 No Units Normal 10-20 [facility] Comment on above: Performed By: #### 2 542357, 5093778, 85389827, 4260854, 5708641, 4203131 ####[facility] [address] [place] [address] Anion gap [Moles/Vol] 10 mmol/L Normal 6-16 [facility] Comment on above: Performed By: #### 2 760967, 1835795, 86632542, 5912819, 5944774, 6755833 ####[facility] [address] [place] [address] Calcium [Mass/Vol] 8.6 mg/dL Low 8.9-11.1 [facility] Comment on above: Performed By: #### 2 404159, 9220612, 13524479, 3780926, 1873022, 0051274 ####[facility] [address] [place] [address] Chloride [Moles/Vol] 105 mmol/L Normal 101-111 [facility] Comment on above: Performed By: #### 2 211397, 4471683, 92234680, 3325721, 7195350, 0520220 ####[facility] [address] [place] [address] CO2 [Moles/Vol] 26 mmol/L Normal 21-31 [facility] Comment on above: Performed By: #### 2 025428, 2022766, 98280944, 0860904, 8448996, 7472629 ####[facility] [address] [place] [address] Glucose [Mass/Vol] 96 mg/dL Normal 55-199 [facility] Comment on above: Result Comment: If t his glucose result represents a fasting glucose, interpretation should refer to the following reference range: 55-99 mg/dL Performed By: #### 2 431114, 1792741, 27058337, 3163256, 5182887, 9935919 ####[facility] [address] [place] [address] Potassium [Moles/Vol] 3.7 mmol/L Normal 3.5-5.3 [facility] Comment on above: Performed By: #### 2 288000, 6260763, 47234822, 3684097, 8459254, 0825044 ####[facility] [address] [place] [address] Sodium [Moles/Vol] 137 mmol/L Normal 135-145 [facility] Comment on above: Performed By: #### 2 922184, 6893896, 09596761, 0759168, 8371940, 9402325 ####[facility] [address] [place] [address] CBC w/ Auto Diffon Erythrocyte distribution width (RBC) [Ratio] 15.9 % High 10.9-14.2 [facility] Comment on above: Performed By: #### 2 562112, 1494823, 05661419, 3462260, 0702386, 3605154 ####[address] [address] Hematocrit (Bld) [Volume fraction] 33.2 % Low 34.0-46.0 [facility] Comment on above: Performed By: #### 2 545518, 5014946, 48230195, 2679054, 7187873, 6659459 ####[address] [address] Hemoglobin (Bld) [Mass/Vol] 10.9 g/dL Low 12.0-16.0 [facility] Comment on above: Performed By: #### 2 077233, 9951303, 26480425, 1546480, 8928544, 7905196 ####[address] [address] MCH (RBC) [Entitic mass] 26.7 pg Low 27.0-34.0 [facility] Comment on above: Performed By: #### 2 632732, 9080896, 31359978, 4955074, 3194873, 9180361 ####[address] [address] MCHC (RBC) [Mass/Vol] 32.9 g/dL Normal 31.4-36.0 [facility] Comment on above: Performed By: #### 2 146684, 2194187, 02659316, 0676186, 1450057, 7738631 ####[address] [place] [address] MCV (RBC) [Entitic vol] 81.0 fL Normal 80.0-100.0 [facility] Comment on above: Performed By: #### 2 027139, 3501618, 00855320, 4247836, 3613482, 0516997 ####[facility] [address] [place] [address] Platelet mean volume (Bld) [Entitic vol] 7.6 fL Normal 6.4-10.8 [facility] Comment on above: Performed By: #### 2 736982, 5978792, 38401064, 8280564, 6846798, 1371127 ####[facility] [address] [place] [address] Platelets (Bld) [#/Vol] 354.0 E9/L Normal 150.0-500.0 [facility] Comment on above: Performed By: #### 2 860645, 0362339, 96070413, 0583477, 9973706, 0812323 ####[address] [address] RBC (Bld) [#/Vol] 4.1 E12/L Low 4.3-5.9 [facility] Comment on above: Performed By: #### 2 801972, 7393435, 19032396, 4894682, 8280316, 7919163 ####[facility] [address] [place] [address] WBC corrected for nucl RBC Auto (Bld) [#/Vol] 5.2 E9/L Normal 4.0-11.0 [facility] Comment on above: Performed By: #### 2 928713, 7037239, 72350620, 5372967, 0786941, 5699937 ####[facility] [address] [place] [address] CHEMISTRYOrdered By: SYSTEM SYSTEM on 07-14-2022 Albumin [Mass/Vol] 3.3 g/dL Normal 3.3 - 5.0 gm/dL [facility]isol Albumin/Globulin [Mass ratio] 1.1 {ratio} Normal 1.1 - 2.2 [facility] Rem[facility] ALP [Catalytic activity/Vol] 63 [iU]/d Normal 21 - 98 Int._Unit/L [facility] Remisol ALT No additional P-5'-P [Catalytic activity/Vol] 15 [iU]/d Normal 6 - 46 Int._Unit/L [facility]isol Anion gap [Moles/Vol] 10 mmol/L Normal 6 - 16 mEq/L [facility] Remisol AST [Catalytic activity/Vol] 15 [iU]/d Normal 5 - 43 Int._Unit/L [facility] Bilirubin [Mass/Vol] 0.3 mg/dL Normal 0.0 - 1 .1 mg/dL [facility]isol Bilirubin.direct [Mass/Vol] mg/dL Normal 0.1 - 0.4 mg/dL [facility] Remisol Bilirubin.indirect [Mass or moles/Vol] Unable to Calculate mg/dL Invalid Interpretation Code 0.1 - 0.9 mg/dL [facility] Calcium [Mass/Vol] 8.6 mg/dL Low 8.9 - 11. 1 mg/dL [facility] Chloride [Moles/Vol] 105 mmol/L Normal 101 - 1 11 mmol/L [facility] CO2 [Moles/Vol] 26 mmol/L Normal 21 - 31 mmol/L [facility] Creatinine [Mass/Vol] 0.8 mg/dL Normal 0.5 - 1.3 mg/dL [facility] Remisol GFR/1.73 sq M.predicted among non-blacks MDRD (S/P/Bld) [Vol rate/Area] 94 mL/min/1.73 m2 Normal >=59mL/min/ 1.73 m2 [facility] Chem S Globulin (S) [Mass/Vol] 3.0 g/dL Normal 1.4 - 4.0 gm/dL [facility] Remisol Glucose [Mass/Vol] 96 mg/dL Normal 55 - 199 mg/dL [facility] Lipase [Catalytic activity/Vol] 39 U/L Normal 13 - 58 unit/L [facility] Remisol Potassium [Moles/Vol] 3.7 mmol/L Normal 3.5 - 5.3 mmol/L [facility]isol Protein [Mass/Vol] 6.3 g/dL Normal 6.0 - 7.8 gm/dL [facility] Sodium [Moles/Vol] 137 mmol/L Normal 135 - 145 mmol/L [facility] Urea nitrogen [Mass/Vol] 12 mg/dL Normal 5 - 21 mg/dL [facility] Remisol Urea nitrogen/Creatinine [Mass ratio] 15 mg/mg Normal 10 - 20 [facility] Remisol CT Abdomen/Pelvis w/o Contra ston 07-14-2022 CT Abdomen/Pelvis w/o Contrast Normal [facility] Consent for Treatmenton 07-01 Consent for Treatment [id number] .00CD:127 Normal [facility] Discharge Instructionson Discharge Instructions [id number]# 1.00CD:127 Normal [facility] ED Clinical Summaryon 2022 ED Clinical Summary Normal [facility] ED Note-Physicianon 07-15-19 ED Note-Physician Normal [facility] Comment on above: Result Comment: Elec tronically Signed By: Edwin Jolley DO\.br\Date and Time Signed: 07/14/22 06:25 EDT ED Patient Education Noteon 07-14-2022 ED Patient Education Note Normal [facility] ED Patient Summaryon 023 ED Patient Summary Normal [facility] Formson 07-14-2022 Forms [id number] 1.00CD:127 Normal [facility] HEMATOLOGYOrdered By: SYSTEM SYSTEM on 07-14-2022 Basophils/100 WBC (Bld) 0.5 % Normal 0.0 - 2.0 % [facility] HemeAutoSS Basophils/Leukocytes Auto (Bld) [Pure # fraction] 0.0 E9/L Normal 0.0 - 0.2 E9/L [facility] HemeAutoSS Eosinophils/100 WBC (Bld) 2.8 % Normal 0.0 - 8.0 % [facility] HemeAutoSS Eosinophils/Leukocytes Auto (Bld) [Pure # fraction] 0.1 E9/L Normal 0.0 - 0.5 E9/L [facility] HemeAutoSS Lymphocytes/100 WBC (Bld) 37.8 % Normal 14.0 - 50.0 % [facility] HemeAutoSS Lymphocytes/Leukocytes Auto (Bld) [Pure # fraction] 2.0 E9/L Normal 1.0 - 4.0 E9/L [facility] HemeAutoSS Monocytes/100 WBC (Bld) 8.4 % Normal 4.0 - 14.0 % [facility] HemeAutoSS Monocytes/Leukocytes Auto (Bld) [Pure # fraction] 0.4 E9/L Normal 0.2 - 1.0 E9/L [facility] HemeAutoSS Neutrophils/100 WBC (Bld) 50.5 % Normal 36.0 - 75.0 % [facility] HemeAutoSS Neutrophils/Leukocytes Auto (Bld) [Pure # fraction] 2.6 E9/L Normal 2.0 - 7.5 E9/L [facility] HemeAutoSS HEMATOLOGYOrdered By: Ele Conn on 07-14-2022 Erythrocyte distribution width (RBC) [Ratio] 15.9 % High 10.9 - 14.2 % [facility] HemeAutoSS Hematocrit (Bld) [Volume fraction] 33.2 % Low 34.0 - 46.0 % [facility] HemeAutoSS Hemoglobin (Bld) [Mass/Vol] 10.9 g/dL Low 12.0 - 16.0 gm/dL [facility] HemeAutoSS MCH (RBC) [Entitic mass] 26.7 pg Low 27.0 - 34.0 pg [facility] HemeAutoSS MCHC (RBC) [Mass/Vol] 32.9 g/dL Normal 31.4 - 36.0 gm/dL [facility] HemeAutoSS MCV (RBC) [Entitic vol] 81.0 fL Normal 80.0 - 100.0 fL [facility] HemeAutoSS Platelet mean volume (Bld) [Entitic vol] 7.6 fL Normal 6.4 - 10.8 fL [facility] HemeAutoSS Platelets (Bld) [#/Vol] 354.0 E9/L Normal 150. 0 - 500.0 E9/L [facility] HemeAutoSS RBC (Bld) [#/Vol] 4.1 E12/L Low 4.3 - 5.9 E12/L [facility] HemeAutoSS WBC corrected for nucl RBC Auto (Bld) [#/Vol] 5.2 E9/L Normal 4.0 - 11.0 E9/L [facility] HemeAutoSS Hep Func Panelon 07-14-2022 Bilirubin.indirect [Mass or moles/Vol] UTC Abnormal 0.1-0.9 [facility] Comment on above: Result Comment: Resu lt verified by Discern Rule. Performed result [facility] (Unable to Calculate) was sent as an Alpha code due the inability to calculate a valid numeric value. Performed By: #### 2 [id number], 2521385, 08924475, 0453710, 6598582, 7688822 ####[address] [place] [address] Albumin [Mass/Vol] 3.3 g/dL Normal 3.3-5.0 [facility] Comment on above: Performed By: #### 2 616849, 9623700, 89893625, 8122256, 2170119, 8439300 ####[address] [place] [address] Albumin/Globulin (S) [Mass conc ratio] 1.1 Normal 1.1-2.2 [facility] Comment on above: Performed By: #### 2 303218, 9094280, 56630584, 2920236, 4487709, 5992742 ####[address] [place] [address] ALP [Catalytic activity/Vol] 63 Int._Unit/L Normal 21-98 [facility] Comment on above: Performed By: #### 2 601858, 2759265, 63022690, 8714665, 2766512, 4544301 ####[address] [place] [address] ALT No additional P-5'-P [Catalytic activity/Vol] 15 Int._Unit/L Normal 6-46 [facility] Comment on above: Performed By: #### 2 253109, 9170528, 33180346, 5686712, 6155238, 8987770 ####[facility] [address] [place] [address] AST [Catalytic activity/Vol] 15 Int._Unit/L Normal 5-43 [facility] Comment on above: Performed By: #### 2 027774, 0182794, 04029814, 2172143, 0909161, 8791423 ####[facility] [address] [place] [address] Bilirubin [Mass/Vol] 0.3 mg/dL Normal 0.0-1.1 [facility] Comment on above: Performed By: #### 2 580909, 8836736, 33114426, 9053907, 1876274, 0994234 ####[address] [address] Globulin (S) [Mass/Vol] 3.0 g/dL Normal 1.4-4.0 [facility] Comment on above: Performed By: #### 2 483301, 5950274, 67832102, 3840670, 0355246, 8294859 ####[address] [address] Protein [Mass/Vol] 6.3 g/dL Normal 6.0-7.8 [facility] Comment on above: Performed By: #### 2 795324, 8253335, 70001356, 6874447, 4580910, 7468088 ####[address] [address] Bilirubin.direct [Mass/Vol] mg/dL Normal 0.1-0.4 [facility] Comment on above: Performed By: #### 2 385212, 8009807, 18634251, 0698336, 5588913, 3008043 ####[address] [address] Lipase Levelon 07-14-2022 Lipase [Catalytic activity/Vol] 39 U/L Normal 13-58 [facility] Comment on above: Performed By: #### 2 789276, 8547355, 99830759, 6786521, 7273990, 4063199 ####[address] [place] [address] Prescriptions/Work Noteson 0 07-14-2022 Prescriptions/Work Notes [id number]# 1.00CD:127 Normal [facility] RAD - Preliminary Cat Scan R eporton 07-14-2022 RAD - Preliminary Cat Scan Report [id number]# 1.00CD:127 Normal [facility] SEROLOGYOrdered By: Rosa Conn on 07-14-2022 Beta hCG Ql Negative (07/14/22 2:49 AM) Normal [facility] Man Sero UA With Cult Reflexon 2022 Bilirubin Ql (U) Negative Normal Negative [facility] Comment on above: Performed By: #### 1 [id number] ####[facility] [address] [place] [address] Clarity (U) CLEAR Normal Clear [facility] Comment on above: Performed By: #### 1 [id number] ####[facility] [address] [place] [address] Color (U) STRAW Abnormal Yellow [facility] Comment on above: Performed By: #### 1 5933082 ####[address] [address] Epithelial cells.squamous LM.HPF (Urine sed) [#/Area] 0-2 Normal 0-2 [facility] Comment on above: Performed By: #### 1 5222509 ####[facility] [address] [place] [address] Glucose Test strip (U) [Mass/Vol] Negative Normal Negative [facility] Comment on above: Performed By: #### 1 2758029 ####[facility] [address] [place] [address] Hemoglobin Ql (U) Negative Normal Negative [facility] Comment on above: Performed By: #### 1 0465423 ####[facility] [address] [place] [address] Ketones (U) [Mass/Vol] Negative Normal Negative [facility] Comment on above: Performed By: #### 1 1303271 ####[facility] [address] [place] [address] Avoca.plasma/Avoca. RBC (Bld) [Mass ratio] 0-3 Normal 0-3 [facility] Comment on above: Performed By: #### 1 1175085 ####[address] [address] Nitrite Ql (U) Negative Normal Negative [facility] Comment on above: Performed By: #### 1 6999096 ####[address] [address] pH (U) 6.5 [pH] Invalid Interpretation Code 5.0-9.0 [facility] Comment on above: Performed By: #### 1 9344805 ####[address] [address] Protein (U) [Mass/Vol] Negative Normal Negative [facility] Comment on above: Performed By: #### 1 5381314 ####[address] [address] Specific gravity (U) [Rel density] <=1.005 Invalid Interpretation Code 1.005-1.030 [facility] Comment on above: Performed By: #### 1 0876712 ####[address] [address] Type of Urine collection method Clean Catch Normal [facility] Comment on above: Performed By: #### 1 [id number] ####[address] [address] Urobilinogen Qn (U) 0.2 {Sandee'U}/dL Normal 0.0-1.0 [facility] Comment on above: Performed By: #### 1 8818570 ####[address] [address] WBC Auto Ql (U) Negative Normal Negative [facility] Comment on above: Performed By: #### 1 9130770 ####[address] [address] WBC LM.HPF (Urine sed) [#/Area] 0-5 Normal 0-5 [facility] Comment on above: Performed By: #### 1 2517256 ####[facility] [address] [place] [address] URINALYSISOrdered By: Ele Conn on 07-14-2022 Bilirubin Ql (U) Negative (07/14/22 4:41 AM) Normal Negative [facility] UA Auto SS Clarity (U) Clear (07/14/22 4:41 AM) Normal Clear [facility] UA Auto SS Color (U) Straw *ABN* (07/14/22 4:41 AM) Invalid Interpretation Code Yellow [facility] UA Auto SS Epithelial cells.squamous LM.HPF (Urine sed) [#/Area] 0-2 /HPF Normal 0-2/HPF [facility] UA Aut o SS Glucose Test strip (U) [Mass/Vol] Negative (07/14/22 4:41 AM) Normal Negative [facility] UA Auto SS Hemoglobin Ql (U) Negative (07/14/22 4:41 AM) Normal Negative [facility] UA Auto SS Ketones (U) [Mass/Vol] Negative (07/14/22 4:41 AM) Normal Negative [facility] UA Auto SS Avoca.plasma/[place]. RBC (Bld) [Mass ratio] 0-3 /HPF Normal 0-3/HPF [facility] UA A uto SS Nitrite Ql (U) Negative (07/14/22 4:41 AM) Normal Negative [facility] UA Auto SS pH (U) 6.5 *NA* (07/14/22 4:41 AM) Invalid Interpretation Code 5.0 - 9.0 [facility] UA Auto SS Protein (U) [Mass/Vol] Negative (07/14/22 4:41 AM) Normal Negative [facility] UA Auto SS Specific gravity (U) [Rel density] <=1.005 *NA* (07/14/22 4:41 AM) Invalid Interpretation Code 1.005 - 1.030 [facility] UA Auto SS UA Spec Desc Clean Catch (07/14/22 4:41 AM) Normal [facility] UA Auto SS Urobilinogen Qn (U) 0.1844489 {Sandee'U}/dL Normal 0.0 - 1.0 EU/dL [facility] UA Auto SS WBC Auto Ql (U) Negative (07/14/22 4:41 AM) Normal Negative [facility] UA Auto SS WBC LM.HPF (Urine sed) [#/Area] 0-5 /HPF Normal 0-5/HPF [facility] UA Auto SS eGFRon 07-14-2022 GFR/1.73 sq M.predicted among non-blacks MDRD (S/P/Bld) [Vol rate/Area] 94 mL/min/1.73 m2 Normal >=59 [facility] Comment on above: Order Comment: Order added by Discern Expert. Result Comment: Report Programmer akbar kidney disease could be indicated at eGFR's of less than 60 mL/min/1.73m2. Kidney failure is indicated at less than 15 mL/min/1.73m2. Performed By: #### 2 907232, 0206820, 29039564, 5747025, 5435582, 7912960 ####[facility] [address] [place] [address] CBC with Auto Differentialon 07-11-2022 Absolute Eos # 0.07 [facility] Absolute Immature Granulocyte [facility] Absolute Lymph # 1.38 [facility] Absolute Caddo # 0.27 [facility] Basophils Absolute [facility] Basophils/100 WBC (Bld) 0 % 0 - 2 % [facility] Eosinophils/100 WBC (Bld) 2 % 1 - 4 % [facility] Hematocrit (Bld) [Volume fraction] 36.1 % Low 36.3 - 47.1 % [facility] Hemoglobin (Bld) [Mass/Vol] 11.3 g/dL Low 11.9 - 15.1 g/dL [facility] Immature granulocytes/100 WBC (Bld) 0 % 0 [facility] Interpretation and review of laboratory results Abnormal [facility] Lymphocytes/100 WBC (Bld) 31 % 24 - 43 % [facility] MCH (RBC) [Entitic mass] 27.4 pg 25.2 - 33.5 pg [facility] MCHC (RBC) [Mass/Vol] 31.3 g/dL 28.4 - 34.8 g/dL [facility] MCV (RBC) [Entitic vol] 87.4 fL 82.6 - 102.9 fL [facility] Monocytes/100 WBC (Bld) 6 % 3 - 12 % [facility] NRBC Automated 0.0 0.0 per 100 WBC [facility] Platelet distribution width (Bld) [Ratio] 14.0 % 11.8 - 14.4 % [facility] Platelet mean volume (Bld) [Entitic vol] 9.9 fL 8.1 - 13.5 fL [facility] Platelets (Bld) [#/Vol] 367 10*3/uL [facility] RBC (Bld) [#/Vol] 4.13 10*6/uL 3.95 - 5.1 1 m/uL [facility] Segmented neutrophils/100 WBC (Bld) 61 % 36 - 65 % [facility] Segs Absolute 2.68 [facility] WBC (Bld) [#/Vol] 4.4 10*3/uL [facility] CBC with Diffon 07-11-2022 Abs. Basophil <0.03 Normal 0.00-0.20 [facility] Comment on above: Performed By: #### C DP, HCG, TROPI, CP ####[address] [place] [address] Lab Director: Quintin Cooper MD Abs.Imm.Granulocyte <0.03 Normal 0.00-0.30 [facility] Comment on above: Performed By: #### C DP, HCG, TROPI, CP ####[address] [place] [address] Lab Director: Quintin Cooper MD Abs.Neutrophil (Seg) 2.68 k/uL Normal 1.50-8.10 [facility] Comment on above: Performed By: #### C DP, HCG, TROPI, CP ####[address] [place] [address] Lab Director: Quintin Cooper MD Basophils/100 WBC (Bld) 0 % Normal 0-2 M [facility] Comment on above: Performed By: #### C DP, HCG, TROPI, CP ####[address] , [facility]83 Lab Director: Quintin Cooper MD Eosinophils (Bld) [#/Vol] 0.07 10*3/uL Normal 0.00-0.44 [facility] Comment on above: Performed By: #### C DP, HCG, TROPI, CP ####[address] , [place] [address] Lab Director: Quintin Cooper MD Eosinophils/100 WBC (Bld) 2 % Normal 1-4 [facility] Comment on above: Performed By: #### C DP, HCG, TROPI, CP ####[address] , [facility]83 Lab Director: Quintin Cooper MD Erythrocyte distribution width (RBC) [Ratio] 14.0 % Normal 11.8-14.4 [facility] Comment on above: Performed By: #### C DP, HCG, TROPI, CP ####[address] , [place] [address] Lab Director: Quintin Cooper MD Hematocrit (Bld) [Volume fraction] 36.1 % Low 36.3-47.1 [facility] Comment on above: Performed By: #### C DP, HCG, TROPI, CP ####[address] , [place] [address] Lab Director: Quintin Cooper MD Hemoglobin (Bld) [Mass/Vol] 11.3 g/dL Low 11.9-15.1 [facility] Comment on above: Performed By: #### C DP, HCG, TROPI, CP ####[address] , [facility]83 Lab Director: Quintin Cooper MD Immature granulocytes/100 WBC (Bld) 0 % Normal 0 [facility] Comment on above: Performed By: #### C DP, HCG, TROPI, CP ####[address] [place] [address] Lab Director: Quintin Cooper MD Lymphocytes (Bld) [#/Vol] 1.38 10*3/uL Normal 1.10-3.70 [facility] Comment on above: Performed By: #### C DP, HCG, TROPI, CP ####[address] [place] [address] Lab Director: Quintin Cooper MD Lymphocytes/100 WBC (Bld) 31 % Normal 24-43 [facility] Comment on above: Performed By: #### C DP, HCG, TROPI, CP ####[address] [place] [address] Lab Director: Quintin Cooper MD MCH (RBC) [Entitic mass] 27.4 pg Normal 25.2-33.5 [facility] Comment on above: Performed By: #### C DP, HCG, TROPI, CP ####[address] , [place] [address])[phone] Director: Quintin Cooper MD MCHC (RBC) [Mass/Vol] 31.3 g/dL Normal 28.4-34.8 [facility] Comment on above: Performed By: #### C DP, HCG, TROPI, CP ####[address] , [place] [phone] Director: Quintin Cooper MD MCV (RBC) [Entitic vol] 87.4 fL Normal 82.6-102.9 M [facility] Comment on above: Performed By: #### C DP, HCG, TROPI, CP ####[address] , [place] [address]83 Lab Director: Quintin Cooper MD Monocytes (Bld) [#/Vol] 0.27 10*3/uL Normal 0.10-1.20 [facility] Comment on above: Performed By: #### C DP, HCG, TROPI, CP ####[address] , [place] 2462883 Lab Director: Quintin Cooper MD Monocytes/100 WBC (Bld) 6 % Normal 3-12 M [facility] Comment on above: Performed By: #### C DP, HCG, TROPI, CP ####[address] , [facility]83 Lab Director: Quintin Cooper MD Neutrophil (Seg) 61 % Normal 36-65 [facility] Comment on above: Performed By: #### C DP, HCG, TROPI, CP ####[address] [place] [address] Lab Director: Quintin Cooper MD NRBC Automated 0.0 per 100 WBC Normal 0.0 [facility] Comment on above: Performed By: #### C DP, HCG, TROPI, CP ####[address] [place] [address] Lab Director: Quintin Cooper MD Platelet mean volume (Bld) [Entitic vol] 9.9 fL Normal 8.1-13.5 [facility] Comment on above: Performed By: #### C DP, HCG, TROPI, CP ####[address] [place] [address] Lab Director: Quintin Cooper MD Platelets (Bld) [#/Vol] 367 10*3/uL Normal 138-453 [facility] Comment on above: Performed By: #### C DP, HCG, TROPI, CP ####[address] , [place] 9054783 Lab Director: Quintin Cooper MD RBC (Bld) [#/Vol] 4.13 10*6/uL Normal 3.95-5.11 [facility] Comment on above: Performed By: #### C DP, HCG, TROPI, CP ####[facility] [address] [place] [address] lab Director: Quintin Cooper MD WBC (Bld) [#/Vol] 4.4 10*3/uL Normal 3.5-11.3 [facility] Comment on above: Performed By: #### C DP, HCG, TROPI, CP ####[facility] [address] [place] [address] lab Director: Quintin Cooper [facility] Albumin [Mass/Vol] 4 g/dL 3.5 - 5.2 g/dL [facility] Albumin/Globulin [Mass ratio] 1.4 {ratio} 1.0 - 2.5 [facility] ALP [Catalytic activity/Vol] 92 U/L 35 - 104 U/L [facility] ALT [Catalytic activity/Vol] 12 U/L 5 - 33 U/L [facility] Anion gap [Moles/Vol] 7 mmol/L Low 9 - 17 mmol/L [facility] AST [Catalytic activity/Vol] 15 U/L NINF - 32 U/L [facility] Bilirubin [Mass/Vol] mg/dL Low 0.3 - 1 .2 mg/dL [facility] Calcium [Mass/Vol] 8.6 mg/dL 8.6 - 10. 4 mg/dL [facility] Chloride [Moles/Vol] 105 mmol/L 98 - 10 7 mmol/L [facility] CO2 [Moles/Vol] 26 mmol/L 20 - 31 mmol/L [facility] Creatinine [Mass/Vol] 0.66 mg/dL 0.50 - 0.90 mg/dL [facility] GFR/1.73 sq M.predicted MDRD (S/P/Bld) [Vol rate/Area] - PINF [facility] Comment on above: These results are not intended for use in patients <18 years of age. eGFR results are calculated without a race factor using the 2020 CKD-EPI equation. Careful clinical correlation is recommended, particularly when comparing to results calculated using previous equations. The CKD-EPI equation is less accurate in patients with extremes of muscle mass, extra-renal metabolism of creatine, excessive creatine ingestion, or following therapy that affects renal tubular secretion. Glucose [Mass/Vol] 91 mg/dL 70 - 99 mg/dL [facility] Interpretation and review of laboratory results Abnormal [facility] Potassium [Moles/Vol] 3.9 mmol/L 3.7 - 5.3 mmol/L [facility] Protein [Mass/Vol] 6.8 g/dL 6.4 - 8.3 g/dL [facility] Sodium [Moles/Vol] 138 mmol/L 135 - 144 mmol/L [facility] Urea nitrogen [Mass/Vol] 8 mg/dL 6 - 20 mg/dL [facility] Urea nitrogen/Creatinine (Bld) [Mass ratio] 12 9 - 20 [facility] Comp Metabolic Profon 2022 Bilirubin [Mass/Vol] mg/dL Low 0.3-1.2 [facility] Comment on above: Performed By: #### C DP, HCG, TROPI, CP ####[address] [place] [address] Lab Director: Quintin Cooper MD Albumin [Mass/Vol] 4.0 g/dL Normal 3.5-5.2 [facility] Comment on above: Performed By: #### C DP, HCG, TROPI, CP ####[address] [place], [place] [address] Lab Director: Quintin Cooper MD Albumin/Glob Ratio 1.4 Normal 1.0-2.5 [facility] Comment on above: Performed By: #### C DP, HCG, TROPI, CP ####[address] [place] [address] lab Director: Quintin Cooper MD Alkaline Phos 92 U/L Normal 35-104 [facility] Comment on above: Performed By: #### C DP, HCG, TROPI, CP ####[address] , [place] 425[address]83 Lab Director: Quintin Cooper MD ALT [Catalytic activity/Vol] 12 U/L Normal 5-33 [facility] Comment on above: Performed By: #### C DP, HCG, TROPI, CP ####[address] [place] [address] Lab Director: Quintin Cooper MD Anion gap [Moles/Vol] 7 mmol/L Low 9-17 [facility] Comment on above: Performed By: #### C DP, HCG, TROPI, CP ####[address] , [place] 0[address]83 Lab Director: Quintin Cooper MD AST [Catalytic activity/Vol] 15 U/L Normal <32 [facility] Comment on above: Performed By: #### C DP, HCG, TROPI, CP ####[address] [place] [address] Lab Director: Quintin Cooper MD BUN/CRE Ratio 12 Normal 9-20 [facility] Comment on above: Performed By: #### C DP, HCG, TROPI, CP ####[address] , [place] 6971583 Lab Director: Quintin Cooper MD Calcium [Mass/Vol] 8.6 mg/dL Normal 8.6-10.4 [facility] Comment on above: Performed By: #### C DP, HCG, TROPI, CP ####[address] , [place] 8865183 Lab Director: Quintin Cooper MD Chloride [Moles/Vol] 105 mmol/L Normal 98-107 [facility] Comment on above: Performed By: #### C DP, HCG, TROPI, CP ####[address] 713[address]83 Lab Director: Quintin Cooper MD CO2 [Moles/Vol] 26 mmol/L Normal 20-31 [facility] Comment on above: Performed By: #### C DP, HCG, TROPI, CP ####[address] , [place] 813[address]83 lab Director: Quintin Cooper MD Creatinine [Mass/Vol] 0.66 mg/dL Normal 0.50-0.90 [facility] Comment on above: Performed By: #### C DP, HCG, TROPI, CP ####[address] , [facility]83 Lab Director: Quintin Cooper MD GFR/1.73 sq M.predicted among non-blacks MDRD (S/P/Bld) [Vol rate/Area] mL/min/{1.73_m2} Normal >60 [facility] Comment on above: Result Comment: These results are not intended for use in patients <18 years of age. eGFR results are calculated without a race factor using the 2020 CKD-EPI equation. Careful clinical correlation is recommended, particularly when comparing to results calculated using previous equations. The CKD-EPI equation is less accurate in patients with extremes of muscle mass, extra-renal metabolism of creatine, excessive creatine ingestion, or following therapy that affects renal tubular secretion. Performed By: #### C DP, HCG, TROPI, CP ####[address] , [place] 8189383 Lab Director: Quintin Cooper MD Glucose [Mass/Vol] 91 mg/dL Normal 70-99 [facility] [facility] Comment on above: Performed By: #### C DP, HCG, TROPI, CP ####[address] , [place] [id number] lab Director: Quintin Cooper MD Potassium [Moles/Vol] 3.9 mmol/L Normal 3.7-5.3 [facility] Comment on above: Performed By: #### C DP, HCG, TROPI, CP ####[facility] [place] , [place] [id number] Lab Director: Quintin Cooper MD Protein [Mass/Vol] 6.8 g/dL Normal 6.4-8.3 [facility] Comment on above: Performed By: #### C DP, HCG, TROPI, CP ####[facility] , [place] [address] Lab Director: Quintin Cooper MD Sodium [Moles/Vol] 138 mmol/L Normal 135-144 [facility] Comment on above: Performed By: #### C DP, HCG, TROPI, CP ####[facility] , [place] [address] lab Director: Quintin Cooper MD Urea nitrogen [Mass/Vol] 8 mg/dL Normal 6-20 [facility] Comment on above: Performed By: #### C DP, HCG, TROPI, CP ####[facility] , [place] [id number] Lab Director: Quintin Cooper MD HCG Qualitative, Serumon hCG Qual Negative NEGATIVE [facility] Comment on above: Specimens with hCG l evels near the threshold of the test (25 mIU/mL) may give a negative or indeterminate result. In such cases, another test should be performed with a new specimen in 48-72 hours. If early is suspected clinically in this setting, correlation with quantitative serum b-hCG level is suggested. [facility] has confirmed the use of plasma for this test. This has not been cleared or approved by the U.S. Food and Drug Administration. The FDA has determined that such clearance is not necessary. [facility] HCG Screen, Bloodon 07-12-19 23 HCG Screen, Blood Negative Normal NEG [facility] Comment on above: Result Comment: Spec imens with hCG levels near the threshold of the test (25 mIU/mL) may give a negative or indeterminate result. In such cases, another test should be performed with a new specimen in 48-72 hours. If early is suspected clinically in this setting, correlation with quantitative serum b-hCG level is suggested. [facility] has confirmed the use of plasma for this test. This has not been cleared or approved by the U.S. Food and Drug Administration. The FDA has determined that such clearance is not necessary. Performed By: #### C DP, HCG, TROPI, CP ####[facility] , [place] [address] lab Director: Quintin Cooper MD No Panel Informationon 07-11 [facility] Troponinon 07-11-2022 Troponin, High Sens 6 ng/L Normal 0-14 [facility] Comment on above: Result Comment: High Sensitivity Troponin values cannot be compared with other Troponin methodologies. Performed By: #### C DP, HCG, TROPI, CP ####[facility] [place] , [place] [id number] lab Director: Quintin Cooper MD Troponin I.cardiac DL <= 0.01 ng/mL [Mass/Vol] 6 ng/L 0 - 14 ng/L [facility] Comment on above: High Sensitivity Tro ponin values cannot be compared with other Troponin methodologies. XR CHEST (2 VW)on 07-11-2022 XR CHEST (2 VW) EXAMINATION: TWO XRAY VIEWS OF THE CHEST 07/11/2022 9:28 am COMPARISON: None. HISTORY: ORDERING SYSTEM PROVIDED HISTORY: CP TECHNOLOGIST PROVIDED HISTORY: CP FINDINGS: The lungs are without acute focal process. There is no effusion or pneumothorax. The cardiomediastinal silhouette is without acute process. The osseous structures are without acute process. IMPRESSION: No acute process. Interpreted by: Patricio Scruggs MD Signed by: Patricio Scruggs MD 07/11/22 Final result Normal [facility] No acute process. [facility]: TWO XRAY VIEWS OF THE CHEST 07/11/2022 9:28 am COMPARISON: None. HISTORY: ORDERING SYSTEM PROVIDED HISTORY: CP TECHNOLOGIST PROVIDED HISTORY: CP FINDINGS: The lungs are without acute focal process. There is no effusion or pneumothorax. The cardiomediastinal silhouette is without acute process. The osseous structures are without acute process. [facility] Patricio Byrne MD - 07/11/2022 EXAMINATION: TWO XRAY VIEWS OF THE CHEST 07/11/2022 9:28 am COMPARISON: None. HISTORY: ORDERING SYSTEM PROVIDED HISTORY: CP TECHNOLOGIST PROVIDED HISTORY: CP FINDINGS: The lungs are without acute focal process. There is no effusion or pneumothorax. The cardiomediastinal silhouette is without acute process. The osseous structures are without acute process. IMPRESSION: No acute process. [employer] Phone: Radiology Study observation (narrative) My Visual Brief Phone: XR CHEST (2 VW)Ordered By: Jason Scruggs on 07-11-2022 [facility] [employer] Phone: Discharge Instructionson Discharge Instructions [id number]# 1.00CD:127 Normal [facility] Prescriptions/Work Noteson 0 07-08-2022 Prescriptions/Work Notes [id number]# 1.00CD:127 Normal [facility] XR Chest Single Viewon 07-08 XR Chest Single View Normal Fish er [facility] Auto Diffon 07-07-2022 Basophils/100 WBC (Bld) 0.6 % Normal 0.0-2.0 [facility] Comment on above: Order Comment: Order Added by Discern Expert. Performed By: #### 1 [id number], 0788997, 11209495, 0957742, 0926688, [id number] ####[facility] [address] [place] [address] Basophils/Leukocytes Auto (Bld) [Pure # fraction] 0.0 E9/L Normal 0.0-0.2 [facility] Comment on above: Order Comment: Order Added by Discern Expert. Performed By: #### 1 3090478, 8467767, 23968319, 4753829, 1631038, 16821533 ####[place] [place] [address] Eosinophils/100 WBC (Bld) 1.8 % Normal 0.0-8.0 [facility] Comment on above: Order Comment: Order Added by Discern Expert. Performed By: #### 1 1436530, 0506776, 65145914, 2664698, 6389383, 71474433 ####[address] [address] Eosinophils/Leukocytes Auto (Bld) [Pure # fraction] 0.1 E9/L Normal 0.0-0.5 [facility] Comment on above: Order Comment: Order Added by Discern Expert. Performed By: #### 1 5609226, 9407299, 29596068, 2218912, 7195261, 25529355 ####[address] [address] Lymphocytes/100 WBC (Bld) 40.1 % Normal 14.0-50.0 [facility] Comment on above: Order Comment: Order Added by Discern Expert. Performed By: #### 1 2730371, 1185090, 31370419, 7203281, 0106339, 23589819 ####[address] [address] Lymphocytes/Leukocytes Auto (Bld) [Pure # fraction] 2.2 E9/L Normal 1.0-4.0 [facility] Comment on above: Order Comment: Order Added by Discern Expert. Performed By: #### 1 6240547, 2064154, 78132060, 2598590, 2608880, 52933191 ####[address] [place] [address] Monocytes/100 WBC (Bld) 7.6 % Normal 4.0-14.0 [facility] Comment on above: Order Comment: Order Added by Discern Expert. Performed By: #### 1 9232755, 9394741, 69437662, 2834265, 8820587, 76957489 ####[address] [address] Monocytes/Leukocytes Auto (Bld) [Pure # fraction] 0.4 E9/L Normal 0.2-1.0 [facility] Comment on above: Order Comment: Order Added by Discern Expert. Performed By: #### 1 8876042, 4849090, 98750329, 4736974, 2304350, 62779587 ####[facility] [address] [place] [address] Neutrophils/100 WBC (Bld) 49.9 % Normal 36.0-75.0 [facility] Comment on above: Order Comment: Order Added by Discern Expert. Performed By: #### 1 3849483, 3057309, 80767371, 7226650, 7134268, 26626334 ####[facility] [address] [place] [address] Neutrophils/Leukocytes Auto (Bld) [Pure # fraction] 2.7 E9/L Normal 2.0-7.5 [facility] Comment on above: Order Comment: Order Added by Discern Expert. Performed By: #### 1 4164835, 7896608, 73854798, 9477537, 3985619, 46828475 ####[facility] [address] [place] [address] BMPon 07-07-2022 Creatinine [Mass/Vol] 0.8 mg/dL Normal 0.5-1.3 [facility] Comment on above: Performed By: #### 1 0230090, 1944798, 28265350, 1813559, 8169484, 05627743 ####[facility] [address] [place] [address] Urea nitrogen [Mass/Vol] 11 mg/dL Normal 5-21 [facility] Comment on above: Performed By: #### 1 5865431, 1008760, 51240799, 6011815, 8810788, 08376074 ####[facility] [address] [place] [address] Urea nitrogen/Creatinine [Mass ratio] 14 No Units Normal 10-20 [facility] Comment on above: Performed By: #### 1 3398312, 1241620, 42874249, 9038776, 2502132, 76198427 ####[facility] [address] [place] [address] Anion gap [Moles/Vol] 12 mmol/L Normal 6-16 [facility] Comment on above: Performed By: #### 1 2200313, 3919087, 39501146, 1164137, 8543603, 72919753 ####[facility] [address] [place] [address] Calcium [Mass/Vol] 8.6 mg/dL Low 8.9-11.1 [facility] Comment on above: Performed By: #### 1 3529906, 1251566, 46929908, 0060346, 6999120, 98855759 ####[facility] [address] [place] [address] Chloride [Moles/Vol] 104 mmol/L Normal 101-111 [facility] Comment on above: Performed By: #### 1 9459652, 9486988, 42853502, 3546935, 6078562, 05446351 ####[facility] [address] [place] [address] CO2 [Moles/Vol] 23 mmol/L Normal 21-31 [facility] Comment on above: Performed By: #### 1 5216261, 3378657, 89112780, 3859804, 7941940, 64753120 ####[facility] [address] [place] [address] Glucose [Mass/Vol] 102 mg/dL Normal 55-199 [facility] Comment on above: Result Comment: If t his glucose result represents a fasting glucose, interpretation should refer to the following reference range: 55-99 mg/dL Performed By: #### 1 9168265, 5872188, 14670484, 7156641, 0681746, 00026866 ####[facility] [address] [place] [address] Potassium [Moles/Vol] 3.2 mmol/L Low 3.5-5.3 [facility] Comment on above: Performed By: #### 1 4191142, 6396515, 78990231, 3943706, 4298752, 86745026 ####[facility] [address] [place] [address] Sodium [Moles/Vol] 136 mmol/L Normal 135-145 [facility] Comment on above: Performed By: #### 1 6890305, 4648494, 67454504, 2035875, 2910243, 65660039 ####[facility] [address] [place] [address] CBC w/ Auto Diffon 3 Erythrocyte distribution width (RBC) [Ratio] 16.3 % High 10.9-14.2 [facility] Comment on above: Performed By: #### 1 5393812, 7285719, 50804743, 5443409, 9927960, 36414249 ####[facility] [address] [place] [address] Hematocrit (Bld) [Volume fraction] 35.8 % Normal 34.0-46.0 [facility] Comment on above: Performed By: #### 1 2270775, 6642536, 50594212, 0992908, 5095993, 92254612 ####[address] [place] [address] Hemoglobin (Bld) [Mass/Vol] 11.5 g/dL Low 12.0-16.0 [facility] Comment on above: Performed By: #### 1 8030931, 4832934, 49332029, 9622984, 5728664, 55946246 ####[facility] [address] [place] [address] MCH (RBC) [Entitic mass] 26.5 pg Low 27.0-34.0 [facility] Comment on above: Performed By: #### 1 5899281, 2853976, 09502328, 5412455, 3881063, 33795425 ####[place] [address] MCHC (RBC) [Mass/Vol] 32.0 g/dL Normal 31.4-36.0 [facility] Comment on above: Performed By: #### 1 1689627, 2442970, 46106680, 9062653, 5805004, 21307823 ####[place] [address] MCV (RBC) [Entitic vol] 82.7 fL Normal 80.0-100.0 [facility] Comment on above: Performed By: #### 1 3324009, 2874804, 95847684, 0102470, 7680681, 14640009 ####[place] [address] Platelet mean volume (Bld) [Entitic vol] 7.5 fL Normal 6.4-10.8 [facility] Comment on above: Performed By: #### 1 6894001, 9597734, 89060849, 7986865, 0655958, 25794085 ####[place] [address] Platelets (Bld) [#/Vol] 342.0 E9/L Normal 150.0-500.0 [facility] Comment on above: Performed By: #### 1 3989519, 8609705, 32901873, 3533938, 3507153, 38830633 ####[place] [address] RBC (Bld) [#/Vol] 4.3 E12/L Normal 4.3-5.9 [facility] Comment on above: Performed By: #### 1 3613010, 2352397, 42623585, 9174173, 3390355, 98857647 ####[address] [address] WBC corrected for nucl RBC Auto (Bld) [#/Vol] 5.5 E9/L Normal 4.0-11.0 [facility] Comment on above: Performed By: #### 1 4633116, 7734143, 84292650, 8889475, 1868860, 61743267 ####[facility] [address] [place] [id number] CHEMISTRYOrdered By: SYSTEM SYSTEM on 07-07-2022 Anion gap [Moles/Vol] 12 mmol/L Normal 6 - 16 mEq/L [facility] Calcium [Mass/Vol] 8.6 mg/dL Low 8.9 - 11. 1 mg/dL [facility] Chloride [Moles/Vol] 104 mmol/L Normal 101 - 1 11 mmol/L [facility] CO2 [Moles/Vol] 23 mmol/L Normal 21 - 31 mmol/L [facility] Creatinine [Mass/Vol] 0.8 mg/dL Normal 0.5 - 1.3 mg/dL [facility] GFR/1.73 sq M.predicted among non-blacks MDRD (S/P/Bld) [Vol rate/Area] 94 mL/min/1.73 m2 Normal >=59mL/min/ 1.73 m2 [facility] Chem S Glucose [Mass/Vol] 102 mg/dL Normal 55 - 199 mg/dL [facility] Potassium [Moles/Vol] 3.2 mmol/L Low 3.5 - 5.3 mmol/L [facility] Sodium [Moles/Vol] 136 mmol/L Normal 135 - 145 mmol/L [facility] Troponin I.cardiac [Mass/Vol] pg/mL Low 10.10 - 27.10 pg/mL [facility] Urea nitrogen [Mass/Vol] 11 mg/dL Normal 5 - 21 mg/dL [facility] Urea nitrogen/Creatinine [Mass ratio] 14 mg/mg Normal 10 - 20 [facility] COAGULATIONOrdered By: Melida Coley on 07-07-2022 aPTT Coag (PPP) [Time] 33.4 s Normal 25.1 - 36.5 second(s) [facility] Auto Coag INR Coag (PPP) [Relative time] 0.9 {INR} Invalid Interpretation Code [facility] Auto Coag PT Coag (PPP) [Time] 10.1 s Normal 9.4 - 1 2.5 second(s) [facility] Auto Coag Consent for Treatmenton Consent for Treatment [id number]#1 .00CD:127 Normal [facility] ED Clinical Summaryon 2022 ED Clinical Summary Normal Guru hassan [facility] ED Note-Physicianon 07-08-19 ED Note-Physician Normal [facility] Comment on above: Result Comment: Elec tronically Signed By: Jim DUNN, Ishmael SShalom\.br\Date and Time Signed: 07/07/22 21:03 EDT ED Patient Education Noteon 07-07-2022 ED Patient Education Note Normal [facility] ED Patient Summaryon 023 ED Patient Summary Normal [facility] HEMATOLOGYOrdered By: SYSTEM SYSTEM on 07-07-2022 Basophils/100 WBC (Bld) 0.6 % Normal 0.0 - 2.0 % [facility] HemeAutoSS Basophils/Leukocytes Auto (Bld) [Pure # fraction] 0.0 E9/L Normal 0.0 - 0.2 E9/L [facility] HemeAutoSS Eosinophils/100 WBC (Bld) 1.8 % Normal 0.0 - 8.0 % [facility] HemeAutoSS Eosinophils/Leukocytes Auto (Bld) [Pure # fraction] 0.1 E9/L Normal 0.0 - 0.5 E9/L [facility] HemeAutoSS Lymphocytes/100 WBC (Bld) 40.1 % Normal 14.0 - 50.0 % [facility] HemeAutoSS Lymphocytes/Leukocytes Auto (Bld) [Pure # fraction] 2.2 E9/L Normal 1.0 - 4.0 E9/L [facility] HemeAutoSS Monocytes/100 WBC (Bld) 7.6 % Normal 4.0 - 14.0 % [facility] HemeAutoSS Monocytes/Leukocytes Auto (Bld) [Pure # fraction] 0.4 E9/L Normal 0.2 - 1.0 E9/L [facility] HemeAutoSS Neutrophils/100 WBC (Bld) 49.9 % Normal 36.0 - 75.0 % [facility] HemeAutoSS Neutrophils/Leukocytes Auto (Bld) [Pure # fraction] 2.7 E9/L Normal 2.0 - 7.5 E9/L [facility] HemeAutoSS HEMATOLOGYOrdered By: Abraham Colin on 07-07-2022 Erythrocyte distribution width (RBC) [Ratio] 16.3 % High 10.9 - 14.2 % [facility] HemeAutoSS Hematocrit (Bld) [Volume fraction] 35.8 % Normal 34.0 - 46.0 % [facility] HemeAutoSS Hemoglobin (Bld) [Mass/Vol] 11.5 g/dL Low 12.0 - 16.0 gm/dL [facility] HemeAutoSS MCH (RBC) [Entitic mass] 26.5 pg Low 27.0 - 34.0 pg [facility] HemeAutoSS MCHC (RBC) [Mass/Vol] 32.0 g/dL Normal 31.4 - 36.0 gm/dL [facility] HemeAutoSS MCV (RBC) [Entitic vol] 82.7 fL Normal 80.0 - 100.0 fL [facility] HemeAutoSS Platelet mean volume (Bld) [Entitic vol] 7.5 fL Normal 6.4 - 10.8 fL [facility] HemeAutoSS Platelets (Bld) [#/Vol] 342.0 E9/L Normal 150. 0 - 500.0 E9/L [facility] HemeAutoSS RBC (Bld) [#/Vol] 4.3 E12/L Normal 4.3 - 5.9 E12/L [facility] HemeAutoSS WBC corrected for nucl RBC Auto (Bld) [#/Vol] 5.5 E9/L Normal 4.0 - 11.0 E9/L [facility] HemeAutoSS PT & PTTon 07-07-2022 aPTT Coag (PPP) [Time] 33.4 second(s) Normal 25.1-36.5 [facility] Comment on above: Result Comment: Para meter 15 days - 4 weeks 1 - 5 months 6 - 11 months 1 - 5 years 6 - 10 years 11 - 17 years PTT Mean: 35.4 (27.6-45.6) Mean: 33.5 (24.8-40.7) Mean: 32.4 (25.1-40.7) Mean: 31.6 (24.0-39.2) Mean: 31.6 (26.9-38.7) Mean: 31.0 (24.6-38.4) Pediatric Reference ranges were obtained from a study by austyn Bacon al. prepared from 1437 samples obtained at 7 different centers using the same coagulation reagent and instrumentation as [facility]. Currently there are no coagulation studies available worldwide for children to 14 days, and no normal ranges. Heparin therapeutic range (represented by Anti-Factor Xa activity of 0.2 - 0.4 U/mL) corresponds to PTT of 56.6 - 109.0 sec. Performed By: #### 1 2340182, 4083594, 31218089, 7947357, 3096188, 52495334 ####[facility] [address] [place] [address] INR Coag (PPP) [Relative time] 0.9 {INR} Invalid Interpretation Code [facility] Comment on above: Result Comment: INR results are specifically intended to assess patients stabilized on long-term Anticoagulation therapy suggested INR?s ?Less Intensive Anticoagulation? 2.0 ? 3.0Conventional Range 3.0 ? 4.5 Performed By: #### 1 5820734, 9178791, 69875805, 8817172, 6839297, 03761796 ####[facility] [address] [place] [address] PT Coag (PPP) [Time] 10.1 second(s) Normal 9.4-12.5 [facility] Comment on above: Result Comment: 15 d ays - 4 weeks 1 - 5 months 6 -11 months 1 ? 5 years 6 ? 10 years 11 -17 years Mean: 11.2 (9.5 ? 12.6) Mean: 11.0 (9.7 ? 12.8) Mean: 11.0 (9.8 ? 13.0) Mean: 11.3 (9.9 ? 13.4) Mean: 11.7 (10.0 ? 14.6) Mean: 11.8 (10.0 - 14.1) Pediatric Reference ranges were obtained from a study by Kalen Olivo et al. prepared from 1437 samples obtained at 7 different centers using the same coagulation reagent and instrumentation as [facility]. Currently there are no coagulation studies available worldwide for children to 14 days, and no normal ranges. Performed By: #### 1 4154091, 1993231, 30718014, 8978778, 1459343, 75439047 ####[facility] [address] [place] [address] Troponin 0 Hr.on 07-07-2022 Troponin I.cardiac [Mass/Vol] ng/mL Low 10.10-27.10 [facility] Comment on above: Result Comment: The 95% CI (Confidence Interval) PPV (Positive Predictive Value) for myocardial infarction in females is 38 pg/mL, in males 51 pg/mL. The results should be used in conjunction with clinical conditions of myocardial infarction.(Access High Sensitivity Troponin I Instructions For Use, Filipe [place], October 2017) Performed By: #### 1 7143190, 7413386, 92433632, 3124957, 9698852, 31426871 ####[facility] [address] [place] [address] eGFRon 07-07-2022 GFR/1.73 sq M.predicted among non-blacks MDRD (S/P/Bld) [Vol rate/Area] 94 mL/min/1.73 m2 Normal >=59 [facility] Comment on above: Order Comment: Order added by Discern Expert. Result Comment: Report Programmer akbar kidney disease could be indicated at eGFR's of less than 60 mL/min/1.73m2. Kidney failure is indicated at less than 15 mL/min/1.73m2. Performed By: #### 1 5893576, 2551420, 87204826, 7767748, 6394069, 00021626 ####[facility] [address] [place] [address] ED Note-Physicianon 06-22-19 ED Note-Physician Normal [facility] Comment on above: Result Comment: Elec tronically Signed By: David June PA-C\.br\Date and Time Signed: 06/18/22 07:49 EDT\.br\Electronically Co-Signed By: Grant Dos Santos DO\.br\Date and Time Co-Signed: 06/21/22 08:14 EDT Coding Summary.on 06-20-2022 Coding Summary. Normal [facility] Consent for Treatmenton 06-01 Consent for Treatment [id number] .00CD:127 Normal [facility] Discharge Instructionson Discharge Instructions [id number] .[id number]:127 Normal [facility] ED Clinical Summaryon 2022 ED Clinical Summary Normal Guru hassan [facility] ED Patient Education Noteon 06-18-2022 ED Patient Education Note Normal [facility] ED Patient Summaryon 023 ED Patient Summary Normal [facility] Prescriptions/Work Noteson 0 06-18-2022 Prescriptions/Work Notes [id number] .00CD:127 Normal [facility] CBC with Auto Differentialon 06-12-2022 Absolute Eos # 0.10 [facility] Absolute Lymph # 2.50 [facility] Absolute [place] # 0.40 [facility] Basophils (Bld) [#/Vol] 0.00 10*3/uL [facility] Basophils/100 WBC (Bld) 0 % 0 - 2 % B ON [facility] Differential Type YES [facility] Eosinophils/100 WBC (Bld) 2 % 0 - 5 % [facility] Hematocrit (Bld) [Volume fraction] 32.1 % Low 36 - 46 % [facility] Hemoglobin (Bld) [Mass/Vol] 10.5 g/dL Low 12.0 - 16.0 g/dL [facility] Interpretation and review of laboratory results Abnormal [facility] Lymphocytes/100 WBC (Bld) 37 % 15 - 40 % [facility] MCH (RBC) [Entitic mass] 26.9 pg 26 - 34 pg [facility] MCHC (RBC) [Mass/Vol] 32.8 g/dL 31 - 3 7 g/dL [facility] MCV (RBC) [Entitic vol] 82.0 fL 80 - 100 fL [facility] Monocytes/100 WBC (Bld) 6 % 4 - 8 % [facility] Platelet distribution width (Bld) [Ratio] 15.3 % High 12.1 - 15.2 % [facility] Platelets (Bld) [#/Vol] 399 10*3/uL [facility] RBC (Bld) [#/Vol] 3.92 10*6/uL Low 4.0 - 5.2 m/uL [facility] Segmented neutrophils/100 WBC (Bld) 55 % 47 - 75 % [facility] Segs Absolute 3.70 [facility] WBC (Bld) [#/Vol] 6.8 10*3/uL [facility] CBC with Diffon 06-12-2022 Abs. Basophil 0.00 k/uL Normal 0.0-0.2 [facility] Comment on above: Performed By: #### T ROPI, CDP, CP, DIME #### [facility] [address] [place] [address] Manager Cash: Quintin Cooper MD Abs.Neutrophil (Seg) 3.70 k/uL Normal 2.5-7.0 [facility] Comment on above: Performed By: #### T ROPI, CDP, CP, DIME #### [facility] [address] [place] [id number] Manager Cash: Quintin Cooper MD Auto Diff Performed YES Normal [facility] Comment on above: Performed By: #### T ROPI, CDP, CP, DIME #### [facility] [address] [place] [address] Manager Cash: Quintin Cooper MD Basophils/100 WBC (Bld) 0 % Normal 0-2 [facility] Comment on above: Performed By: #### T ROPI, CDP, CP, DIME #### [facility] [address] [place] [phone] Manager Cash: Quintin Cooper MD Eosinophils (Bld) [#/Vol] 0.10 10*3/uL Normal 0.0-0.4 [facility] Comment on above: Performed By: #### T ROPI, CDP, CP, DIME #### [facility] [address] [place] [address] Manager Cash: Quintin Cooper MD Eosinophils/100 WBC (Bld) 2 % Normal 0-5 [facility] Comment on above: Performed By: #### T REGINALD LOPEZ, CP, DIME #### [facility] [address] [phone] Manager Cash: Quintin Cooper MD Erythrocyte distribution width (RBC) [Ratio] 15.3 % High 12.1-15.2 [facility] Comment on above: Performed By: #### T REGINALD LOPEZ, CP, DIME #### [facility] [address] [place] [address] Manager Cash: Quintin Cooper MD Hematocrit (Bld) [Volume fraction] 32.1 % Low 36-46 [facility] Comment on above: Performed By: #### T REGINALD LOPEZ, CP, DIME #### [facility] [address] [phone] Manager Cash: Quintin Cooper MD Hemoglobin (Bld) [Mass/Vol] 10.5 g/dL Low 12.0-16.0 [facility] Comment on above: Performed By: #### T REGINALD LOPEZ, CP, DIME #### [facility] [address] [place] [address] Manager Cash: Quintin Cooper MD Lymphocytes (Bld) [#/Vol] 2.50 10*3/uL Normal 1.0-4.8 [facility] Comment on above: Performed By: #### T REGINALD LOPEZ, CP, DIME #### [facility] [address] [place] [address] Manager Cash: Quintin Cooper MD Lymphocytes/100 WBC (Bld) 37 % Normal 15-40 [facility] Comment on above: Performed By: #### T REGINALD LOPEZ, CP, DIME #### [facility] [address] [place] [address] Manager Cash: Quintin Cooper MD MCH (RBC) [Entitic mass] 26.9 pg Normal 26-34 [facility] Comment on above: Performed By: #### T JESSICA, CDP, CP, DIME #### [facility] [address] [place] [address] Manager Cash: Quintin Cooper MD MCHC (RBC) [Mass/Vol] 32.8 g/dL Normal 31-37 [facility] Comment on above: Performed By: #### T REGINALD LOPEZ, CP, DIME #### [facility] [address] [place] [address] Manager Cash: Quintin Cooper MD MCV (RBC) [Entitic vol] 82.0 fL Normal 80-100 [facility] Comment on above: Performed By: #### T JESSICA, CDP, CP, DIME #### [facility] [address] [place] [phone] Manager Cash: Quintin Cooper MD Monocytes (Bld) [#/Vol] 0.40 10*3/uL Normal 0.0-1.0 [facility] Comment on above: Performed By: #### T JESSICA, REGINALD, CP, DIME #### [facility] [address] [place] [phone] Manager Cash: Quintin Cooper MD Monocytes/100 WBC (Bld) 6 % Normal 4-8 [facility] Comment on above: Performed By: #### T JESSICA, CDP, CP, DIME #### [facility] [address] [phone] Manager Cash: Quintin Cooper MD Neutrophil (Seg) 55 % Normal 47-75 [facility] Comment on above: Performed By: #### T JESSICA, CDP, CP, DIME #### [facility] [address] [place], [place] [phone] Manager Cash: Quintin Cooper MD Platelets (Bld) [#/Vol] 399 10*3/uL Normal 140-450 [facility] Comment on above: Performed By: #### T ROPAndry, CDP, CP, DIME #### [facility] [address] [place], [place] [phone] Manager Cash: Quintin Cooper MD RBC (Bld) [#/Vol] 3.92 10*6/uL Low 4.0-5.2 [facility] Comment on above: Performed By: #### T JESSICA, CDP, CP, DIME #### [facility] [address] [place] [address] [phone] Manager Cash: Quintin Cooper MD WBC (Bld) [#/Vol] 6.8 10*3/uL Normal 3.5-11.0 [facility] Comment on above: Performed By: #### T JESSICA, CDP, CP, DIME #### [facility] [address] [place] [address] Manager Cash: Quintin Cooper MD Comp Metabolic Profon 2022 Albumin [Mass/Vol] 3.7 g/dL Normal 3.5-5.2 [facility] Comment on above: Performed By: #### T JESSICA, CDP, CP, DIME #### [facility] [address] [place], [place] [phone] Manager Cash: Quintin Cooper MD Alkaline Phos 82 U/L Normal 35-104 [facility] Comment on above: Performed By: #### T ROPI, CDP, CP, DIME #### [facility] [address] [place], [place] [phone] Manager Cash: Quintin Cooper MD ALT [Catalytic activity/Vol] 15 U/L Normal 5-33 [facility] Comment on above: Performed By: #### T ROPI, CDP, CP, DIME #### [facility] [address] [phone] Manager Cash: Quintin Cooper MD Anion gap [Moles/Vol] 12 mmol/L Normal 9-17 [facility] Comment on above: Performed By: #### T ROPI, CDP, CP, DIME #### [facility] [address] [place] [address] Manager Cash: Quintin Cooper MD AST [Catalytic activity/Vol] 13 U/L Normal <32 [facility] Comment on above: Performed By: #### T ROPI, CDP, CP, DIME #### [facility] [address] [place] [address] Manager Cash: Quintin Cooper MD Bilirubin [Mass/Vol] mg/dL Low 0.3-1.2 [facility] Comment on above: Performed By: #### T ROPI, CDP, CP, DIME #### [facility] [address] [place] [address] Manager Cash: Quintin Cooper MD Calcium [Mass/Vol] 8.7 mg/dL Normal 8.6-10.4 [facility] Comment on above: Performed By: #### T ROPAndry, CDP, CP, DIME #### [facility] [address] [place] [address] Manager Cash: Quintin Cooper MD Chloride [Moles/Vol] 102 mmol/L Normal 98-107 [facility] Comment on above: Performed By: #### T ROPI, CDP, CP, DIME #### [facility] [address] [place] [phone] Manager Cash: Quintin Cooper MD CO2 [Moles/Vol] 23 mmol/L Normal 20-31 [facility] Comment on above: Performed By: #### T ROPI, CDP, CP, DIME #### [facility] [address] [place] [address] Manager Cash: Quintin Cooper MD Creatinine [Mass/Vol] 0.70 mg/dL Normal 0.50-0.90 [facility] Comment on above: Performed By: #### T REGINALD LOPEZ, CP, DIME #### [facility] [address] [place] [address] Manager Cash: Quintin Cooper MD GFR/1.73 sq M.predicted among non-blacks MDRD (S/P/Bld) [Vol rate/Area] mL/min/{1.73_m2} Normal >60 [facility] Comment on above: Result Comment: These results are not intended for use in patients <18 years of age. eGFR results are calculated without a race factor using the 2020 CKD-EPI equation. Careful clinical correlation is recommended, particularly when comparing to results calculated using previous equations. The CKD-EPI equation is less accurate in patients with extremes of muscle mass, extra-renal metabolism of creatine, excessive creatine ingestion, or following therapy that affects renal tubular secretion. Performed By: #### T REGINALD LOPEZ CP, DIME #### [facility] [address] [place] [address] Manager Cash: Quintin Cooper MD Glucose [Mass/Vol] 125 mg/dL High 70-99 [facility] Comment on above: Performed By: #### T REGINALD LOPEZ, CP, DIME #### [facility] [address] [place] [address] Manager Cash: Quintin Cooper MD Potassium [Moles/Vol] 3.1 mmol/L Low 3.7-5.3 [facility] Comment on above: Performed By: #### T REGINALD LOPEZ, CP, DIME #### [facility] [address] [place] [address] Manager Cash: Quintin Cooper MD Protein [Mass/Vol] 6.5 g/dL Normal 6.4-8.3 [facility] Comment on above: Performed By: #### T REGINALD LOPEZ CP, GERARDO #### [facility] [address] [place] [address] Manager Cash: Quintin Cooper MD Sodium [Moles/Vol] 137 mmol/L Normal 135-144 [facility] Comment on above: Performed By: #### T REGINALD LOPEZ CP, GERARDO #### [facility] [address] [place] [address] Manager Cash: Quintin Cooper MD Urea nitrogen [Mass/Vol] 12 mg/dL Normal 6-20 [facility] Comment on above: Performed By: #### T REGINALD LOPEZ CP, GERARDO #### [facility] [address] [place] [address] Manager Cash: Quintin Cooper MD Comprehensive Metabolic Pane [facility] 06-12-2022 Albumin [Mass/Vol] 3.7 g/dL 3.5 - 5.2 g/dL [facility] ALP [Catalytic activity/Vol] 82 U/L 35 - 104 U/L [facility] ALT [Catalytic activity/Vol] 15 U/L 5 - 33 U/L [facility] Anion gap [Moles/Vol] 12 mmol/L 9 - 17 mmol/L [facility] AST [Catalytic activity/Vol] 13 U/L NINF - 32 U/L [facility] Bilirubin [Mass/Vol] mg/dL Low 0.3 - 1 .2 mg/dL [facility] Calcium [Mass/Vol] 8.7 mg/dL 8.6 - 10. 4 mg/dL [facility] Chloride [Moles/Vol] 102 mmol/L 98 - 10 7 mmol/L [facility] CO2 [Moles/Vol] 23 mmol/L 20 - 31 mmol/L [facility] Creatinine [Mass/Vol] 0.7 mg/dL 0.50 - 0.90 mg/dL [facility] GFR/1.73 sq M.predicted MDRD (S/P/Bld) [Vol rate/Area] - PINF [facility] Comment on above: These results are not intended for use in patients <18 years of age. eGFR results are calculated without a race factor using the 2020 CKD-EPI equation. Careful clinical correlation is recommended, particularly when comparing to results calculated using previous equations. The CKD-EPI equation is less accurate in patients with extremes of muscle mass, extra-renal metabolism of creatine, excessive creatine ingestion, or following therapy that affects renal tubular secretion. Glucose [Mass/Vol] 125 mg/dL High 70 - 99 mg/dL [facility] Interpretation and review of laboratory results Abnormal [facility] Potassium [Moles/Vol] 3.1 mmol/L Low 3.7 - 5.3 mmol/L [facility] Protein [Mass/Vol] 6.5 g/dL 6.4 - 8.3 g/dL [facility] Sodium [Moles/Vol] 137 mmol/L 135 - 144 mmol/L [facility] Urea nitrogen [Mass/Vol] 12 mg/dL 6 - 20 mg/dL [facility] D-Dimer Teston 06-12-2022 D-Dimer Test <0.27 Normal 0.00-0.59 [facility] Comment on above: Result Comment: When combined with a low clinical probability, a D dimer value of <0.50 mg/L FEU is considered negative for DVT and PE (negative predictive value of 98%, sensitivity of 97%). If this test is not being used to help rule out DVT and PE, then the following reference range should be utilized: 0.00 - 0.59 mg/L FEU. The D-Dimer assay is intended for use as an aid in the diagnosis of venous thromboembolism (DVT and PE) and the results should be interpreted in conjunction with the patient's medical history, clinical presentation, and other findings. Elevated levels of D-dimer activity can be seen in any state of coagulation activation and is not recommended in patients with therapeutic dose anticoagulant therapy for >24 hours, fibrinolytic therapy within the previous 7 days, trauma or surgery within the previous 4 weeks, disseminated malignancies, aortic aneurysm, sepsis, severe infections, pneumonia, severe skin infections, liver cirrhosis, advanced age, coronary disease, diabetes, and . A very low percentage of patients with DVT may yield D-dimer results below the cutoff of 0.5 mg/L FEU. This is known to be more prevalent in patients with distal DVT. Performed By: #### T ROPI, CDP, CP, DIME #### [facility] [address] [place] [address] Manager Cash: Quintin Cooper MD D-Dimer, Quantitativeon 06-01 Fibrin D-dimer FEU IA (Bld) [Mass/Vol] [facility] Comment on above: When combined with a low clinical probability, a D dimer value of <0.50 mg/L FEU is considered negative for DVT and PE (negative predictive value of 98%, sensitivity of 97%). If this test is not being used to help rule out DVT and PE, then the following reference range should be utilized: 0.00 - 0.59 mg/L FEU. The D-Dimer assay is intended for use as an aid in the diagnosis of venous thromboembolism (DVT and PE) and the results should be interpreted in conjunction with the patient's medical history, clinical presentation, and other findings. Elevated levels of D-dimer activity can be seen in any state of coagulation activation and is not recommended in patients with therapeutic dose anticoagulant therapy for >24 hours, fibrinolytic therapy within the previous 7 days, trauma or surgery within the previous 4 weeks, disseminated malignancies, aortic aneurysm, sepsis, severe infections, pneumonia, severe skin infections, liver cirrhosis, advanced age, coronary disease, diabetes, and . A very low percentage of patients with DVT may yield D-dimer results below the cutoff of 0.5 mg/L FEU. This is known to be more prevalent in patients with distal DVT. [facility] HCG, ,Urineon 06-12 Beta HCG ( test) Ql (U) Negative Normal NEG [facility] Comment on above: Performed By: #### C DP, CP, HCG, DIME, TSHX, ALCB #### [facility] [address] [place] [address] Manager Cash: Quintin Cooper MD Hemoglobin A1Con 06-12-2022 Glucose [Mass/Vol] 123 mg/dL Normal [facility] Comment on above: Result Comment: The ADA and AACC recommend providing the estimated average glucose result to permit better patient understanding of their HBA1c result. Performed By: #### C DP, CP, HCG, DIME, TSHX, ALCB #### [facility] [address] [place], [place] [phone] Manager Cash: Quintin Cooper MD HbA1c (Bld) [Mass fraction] 5.9 % Normal 4.0-6.0 [facility] Comment on above: Performed By: #### C DP, CP, HCG, DIME, TSHX, ALCB #### [facility] [address] [place] [address] Manager Cash: Quintin Cooper MD Lipid Profileon 06-12-2022 Cholesterol [Mass/Vol] 188 mg/dL Normal <200 [facility] Comment on above: Result Comment: Cholesterol Guidelines: <200 Desirable 200-240 Borderline >240 Undesirable Performed By: #### C DP, CP, HCG, DIME, TSHX, ALCB #### [facility] [address] [place] [address] Manager Cash: Quintin Cooper MD Cholesterol in HDL [Mass/Vol] 49 mg/dL Normal >40 [facility] Comment on above: Result Comment: HDL Guidelines: <40 Undesirable 40-59 Borderline >59 Desirable Performed By: #### C DP, CP, HCG, DIME, TSHX, ALCB #### [facility] [address] [place] [address] Manager Cash: Quintin Cooper MD Cholesterol in LDL [Mass/Vol] 116 mg/dL Normal 0-130 [facility] Comment on above: Result Comment: LDL Guidelines: <100 Desirable 100-129 Near to/above Desirable 130-159 Borderline >159 Undesirable Direct (measured) LDL and calculated LDL are not interchangeable tests. Performed By: #### C DP, CP, HCG, DIME, TSHX, ALCB #### [facility] [address] [place] [address] Manager Cash: Quintin Cooper MD Cholesterol.total/Audelia sterol in HDL [Mass ratio] 3.8 {ratio} Normal <5 [facility] Comment on above: Performed By: #### C DP, CP, HCG, DIME, TSHX, ALCB #### [facility] [address] [place] [address] Manager Cash: Quintin Cooper MD Triglyceride [Mass/Vol] 116 mg/dL Normal <150 [facility] Comment on above: Result Comment: Triglyceride Guidelines: <150 Desirable 150-199 Borderline 200-499 High >499 Very high Based on AHA Guidelines for fasting triglyceride, December 2011. Performed By: #### C DP, CP, HCG, DIME, TSHX, ALCB #### [facility] [address] [place] [address] Manager Cash: Quintin Cooper MD Microscopic Urinalysison - [facility] Crystals, UA 2+ CALCIUM OXALATE Abnormal None /HPF [facility] Epithelial Cells UA 10 TO 20 /HPF [facility] Interpretation and review of laboratory results Abnormal [facility] RBC clumps Auto (Urine sed) [#/Area] 20 TO 50 [facility] WBC, UA NONE SEEN 0 /HPF [facility] , Urineon 3 Beta HCG ( test) Ql (U) Negative NEGATIVE [facility] Troponinon 06-12-2022 Troponin, High Sens <6 Normal 0-14 [facility] Comment on above: Result Comment: High Sensitivity Troponin values cannot be compared with other Troponin methodologies. Performed By: #### T ROPI, CDP, CP, DIME #### [facility] [address] [place], [place] [phone] Manager Cash: Quintin Cooper MD Troponin I.cardiac DL <= 0.01 ng/mL [Mass/Vol] ng/L 0 - 14 ng/L [facility] Comment on above: High Sensitivity Tro ponin values cannot be compared with other Troponin methodologies. [facility] Urinalysison 06-12-2022 Bilirubin Urine Negative NEGATIVE [facility] Color, UA Yellow Yellow [facility] Glucose Auto test strip (U) [Mass/Vol] Negative NEGATIVE [facility] Interpretation and review of laboratory results Abnormal [facility] Ketones (U) [Mass/Vol] Negative NEGATIVE [facility] Leukocyte esterase Auto test strip Ql (U) Negative NEGATIVE [facility] Nitrite Auto test strip Ql (U) Negative NEGATIVE [facility] Protein (U) [Mass/Vol] 6.0 mg/dL 5.0 - 8.0 [facility] Protein (U) [Mass/Vol] TRACE Abnormal NEGATIVE [facility] Specific [place], UA 1.020 1.005 - 1.030 [facility] Turbidity UA Clear Clear [facility] Urinalysis Comments [facility] Urine Hgb 1+ Abnormal NEGATIVE [facility] Urobilinogen, Urine Normal Normal [facility] Urinalysis, Routineon 2022 Bilirubin, SemiQt,Ur Negative Normal NEG [facility] Comment on above: Performed By: #### C DP, CP, HCG, DIME, TSHX, ALCB #### [facility] [address] [place] [address] Manager Cash: Quintin Cooper MD Blood, Urine 1+ Abnormal NEG [facility] Comment on above: Performed By: #### C DP, CP, HCG, DIME, TSHX, ALCB #### [facility] [address] [place] [address] Manager Cash: Quintin Cooper MD Clarity (U) Clear Normal CLEAR [facility] Comment on above: Performed By: #### C DP, CP, HCG, DIME, TSHX, ALCB #### [facility] [address] [place] [address] Manager Cash: Quintin Cooper MD Color (U) Yellow Normal YEL [facility] Comment on above: Performed By: #### C DP, CP, HCG, DIME, TSHX, ALCB #### [facility] [address] [place] [address] Manager Cash: Quintin Cooper MD Comment Normal [facility] Comment on above: Performed By: #### C DP, CP, HCG, DIME, TSHX, ALCB #### [facility] [address] [place] [address] Manager Cash: Quintin Cooper MD Glucose Ql (U) Negative Normal NEG [facility] Comment on above: Performed By: #### C DP, CP, HCG, DIME, TSHX, ALCB #### [facility] [address] [place] [address] Manager Cash: Quintin Cooper MD Ketones Ql (U) Negative Normal NEG [facility] Comment on above: Performed By: #### C DP, CP, HCG, DIME, TSHX, ALCB #### [facility] [address] [place] [address] Manager Cash: Quintin Cooper MD Leukocyte esterase Test strip Ql (U) Negative Normal NEG [facility] Comment on above: Performed By: #### C DP, CP, HCG, DIME, TSHX, ALCB #### [facility] [address] [place] [address] Manager Cash: Quintin Cooper MD Nitrite,Ur Negative Normal NEG [facility] Comment on above: Performed By: #### C DP, CP, HCG, DIME, TSHX, ALCB #### [facility] [address] [place], [place] [phone] Manager Cash: Quintin Cooper MD PH,Ur 6.0 Normal 5.0-8.0 [facility] Comment on above: Performed By: #### C DP, CP, HCG, DIME, TSHX, ALCB #### [facility] [address] [place] [phone] Manager Cash: Quintin Cooper MD Protein Ql (U) TRACE Abnormal NEG [facility] Comment on above: Performed By: #### C DP, CP, HCG, DIME, TSHX, ALCB #### [facility] [address] [place] [address] Manager Cash: Quintin Cooper MD Spec. [place],Ur 1.020 Normal 1.005-1.030 [facility] Comment on above: Performed By: #### C DP, CP, HCG, DIME, TSHX, ALCB #### [facility] [address] [place] [address] Manager Cash: Quintin Cooper MD Urobilinogen,Ur Normal Normal NORM [facility] Comment on above: Performed By: #### C DP, CP, HCG, DIME, TSHX, ALCB #### [facility] [address] [place] [address] Manager Cash: Quintin Cooper MD Urinalysis,Microon 3 ----- Normal [facility] Comment on above: Performed By: #### C DP, CP, HCG, DIME, TSHX, ALCB #### [facility] [address] [place] [address] Manager Cash: Quintin Cooper MD Crystals LM Nom (Urine sed) 2+ /HPF Abnormal NONE [facility] Comment on above: Result Comment: CALC IUM OXALATE Performed By: #### C DP, CP, HCG, DIME, TSHX, ALCB #### [facility] [address] [phone] Manager Cash: Quintin Cooper MD Epithelial cells LM Ql (Urine sed) 10 TO 20 Normal [facility] Comment on above: Performed By: #### C DP, CP, HCG, DIME, TSHX, ALCB #### [facility] [address] [place] [address] Manager Cash: Quintin Cooper MD Urine RBC's 20 TO 50 Normal 0-2 [facility] Comment on above: Performed By: #### C DP, CP, HCG, DIME, TSHX, ALCB #### [facility] [address] [place], [place] [phone] Manager Cash: Quintin Cooper MD Urine WBC's NONE SEEN Normal 0 [facility] Comment on above: Performed By: #### C DP, CP, HCG, DIME, TSHX, ALCB #### [facility] [address] [place] [phone] Manager Cash: Quintin Cooper MD CARDIAC HCITO ADMITon 023 CK [Catalytic activity/Vol] 27 U/L Normal 26-192 [facility] Comment on above: Performed By: #### A CET, CMP, SALYC #### [facility] [address] [place] [address] Dr. Bob Avitia CK.MB [Mass/Vol] ng/mL Normal <=3.60 [facility] Comment on above: Performed By: #### A CET, CMP, SALYC #### [facility] [address] [place] [address] Dr. Bob Avitia HSTROP <4.0 Normal 4.0-51.3 [facility] Comment on above: Result Comment: CUT- OFF POINTS HAVE BEEN ESTABLISHED BASED ON THE FOURTH UNIVERSAL DEFINITIONS OF MYOCARDIAL INFARCTION. THE UPPER REFERENCE LIMIT (URL) OF TROPONIN, DEFINED THE 99TH PERCENTILE OF cTnI DISTRIBUTION IN A REFERENCE POPULATION, HAS BEEN CONFIRMED THE DECISION THRESHOLD FOR CT DIAGNOSIS. Performed By: #### A CET, CMP, SALYC #### [facility] [address] [address] [address] Bob Avitia SAIGE 22 ng/mL Normal 9-82 [facility] Comment on above: Performed By: #### A CET, CMP, SALYC #### [facility] [address] [place] [address] Dr. Bob Avitia CBC AUTO DIFFon 06-11-2022 BASO # 0.0 103/ul Normal 0.0-0.1 [facility] Comment on above: Performed By: #### C BC #### [facility] [address] [place] [address] Dr. Bob Avitia Basophils/100 WBC (Bld) 0.5 % Normal 0.2-2.0 [facility] Comment on above: Performed By: #### C BC #### [facility] [address] [place] [address] Dr. Bob Avitia EO # 0.1 103/ul Normal 0.0-0.7 [facility] Comment on above: Performed By: #### C BC #### [facility] [address] [place] [address] Dr. Bob Avitia Eosinophils/100 WBC (Bld) 1.5 % Normal 0.9-7.0 [facility] Comment on above: Performed By: #### C BC #### [facility] [address] [place] [address] Dr. Bob Avitia Erythrocyte distribution width (RBC) [Ratio] 13.9 % Normal 11.0-15.0 [facility] Comment on above: Performed By: #### C BC #### [facility] [address] [place] [address] Dr. Bob Avitia Hematocrit (Bld) [Volume fraction] 33.8 % Critically low 36.0-48.0 [facility] Comment on above: Performed By: #### C BC #### [facility] [address] [place] [address] Dr. Bob Avitia Hemoglobin (Bld) [Mass/Vol] 10.8 g/dL Critically low 12.0-16.0 [facility] Comment on above: Performed By: #### C BC #### [facility] [address] [place] [address] Dr. Bob Avitia IG # 0.06 10e3/ul Critically high 0.00-0.03 [facility] Comment on above: Performed By: #### C BC #### [facility] [address] [place] [address] Dr. Bob Avitia IG % 0.8 % Critically high 0.0-0.5 [facility] Comment on above: Performed By: #### C BC #### [facility] [address] [place] [address] Dr. Bob Avitia LYMPH # 2.1 103/ul Normal 1.2-3.8 [facility] Comment on above: Performed By: #### C BC #### [facility] [address] [place] [address] Dr. Bob Avitia Lymphocytes/100 WBC (Bld) 28.1 % Normal 20.5-60.0 [facility] Comment on above: Performed By: #### C BC #### [facility] [address] [place] [address] Dr. Bob Avitia MANUAL DIFF REQ NO Normal [facility] Comment on above: Performed By: #### C BC #### [facility] [address] [place] [address] Dr. Bob Avitia MCH (RBC) [Entitic mass] 26.6 pg Critically low 26.7-34.0 [facility] Comment on above: Performed By: #### C BC #### [facility] [address] [place] [address] Dr. Bob Avitia MCHC (RBC) [Mass/Vol] 32.0 g/dL Normal 29.9-35.2 [facility] Comment on above: Performed By: #### C BC #### [facility] [address] [place] [address] Dr. Bob Avitia MCV (RBC) [Entitic vol] 83.3 fL Normal 81.0-99.0 [facility] Comment on above: Performed By: #### C BC #### [facility] [address] [place] [address] Dr. Bob Avitia MONO # 0.4 103/ul Normal 0.3-0.8 [facility] Comment on above: Performed By: #### C BC #### [facility] [address] [place] [address] Dr. Bob Avitia Monocytes/100 WBC (Bld) 5.9 % Normal 1.7-12.0 [facility] Comment on above: Performed By: #### C BC #### [facility] [address] [place] [address] Dr. Bob Avitia NEUT # 4.7 103/ul Normal 1.4-6.5 [facility] Comment on above: Performed By: #### C BC #### [facility] [address] [place] [address] Dr. Bob Avitia Neutrophils/100 WBC (Bld) 63.2 % Normal 43.0-75.0 [facility] Comment on above: Performed By: #### C BC #### [facility] [address] [place] [address] Dr. Bob Avitia Platelet mean volume (Bld) [Entitic vol] 9.2 fL Critically low 9.5-13.5 [facility] Comment on above: Performed By: #### C BC #### [facility] [address] [place] [address] Dr. Bob Avitia PLT 353 103/ul Normal 150-450 [facility] Comment on above: Performed By: #### C BC #### [facility] [address] [place] [address] Dr. Bob Avitia RBC 4.06 106/ul Critically low 4.20-5.40 [facility] Comment on above: Performed By: #### C BC #### [facility] [address] [place] [address] Dr. Bob Avitia WBC 7.5 103/ul Normal 4.0-11.0 [facility] Comment on above: Performed By: #### C BC #### [facility] [address] [place] [address] Dr. Bob Avitia D-DIMERon 06-11-2022 D-DIMER 0.49 mg/L FEU Normal <=0.59 [facility] Comment on above: Performed By: #### C MP #### [facility] [address] [place] [address] Dr. Bob Avitia D-DIMER COMMENTS SEE BELOW Normal [facility] Comment on above: Result Comment: Incr eases in D-Dimer concentration observed with thromboembolic events can be variable due to localization, size, and age of the thrombus. Therefore, a thromboembolic event cannot be diagnosed with certainty on the basis of the reference range. D-Dimers may also be elevated for a variety of disorders including: advanced age, , coronary disease, cancer, liver disease, infection, inflammation, hematoma, DIC, trauma, post-surgery, diabetes, thrombolytic or anticoagulant therapy, stress, and generalized hospitalization. Performed By: #### C MP #### [facility] [address] [place] [address] Dr. Bob Avitia POINT OF CARE GLUCOSEon 06-01 Glucose [Mass/Vol] 106 mg/dL Normal 74-106 [facility] Comment on above: Performed By: #### A CET, CMP, SALYC #### [facility] [address] [place] [address] Dr. Bob Avitia PROF 14(COMP METB)on 023 Albumin [Mass/Vol] 3.1 g/dL Critically low 3.4-5.0 [facility] Comment on above: Performed By: #### A CET, CMP, SALYC #### [facility] [address] [place] [address] Dr. Bob Avitia Albumin/Globulin [Mass ratio] 0.9 {ratio} Normal [facility] Comment on above: Performed By: #### A CET, CMP, SALYC #### [facility] [address] [place] [address] Dr. Bob Avitia ALP [Catalytic activity/Vol] 90 U/L Normal 46-116 [facility] Comment on above: Performed By: #### A CET, CMP, SALYC #### [facility] [address] [place] [address] Dr. Bob Avitia ALT [Catalytic activity/Vol] 19 U/L Normal 14-59 [facility] Comment on above: Performed By: #### A CET, CMP, SALYC #### [facility] [address] [place] [address] Dr. Bob Avitia Anion gap [Moles/Vol] 14.2 mmol/L Normal [facility] Comment on above: Performed By: #### A CET, CMP, SALYC #### [facility] [address] [place] [address] Dr. Bob Avitia AST [Catalytic activity/Vol] 11 U/L Critically low 15-37 [facility] Comment on above: Performed By: #### A CET, CMP, SALYC #### [facility] [address] [place] [address] Dr. Bob Avitia Bilirubin [Mass/Vol] 0.2 mg/dL Normal 0.2-1.0 [facility] Comment on above: Performed By: #### A CET, CMP, SALYC #### [facility] [address] [place] [address] Dr. Bob Avitia Calcium [Mass/Vol] 8.4 mg/dL Critically low 8.5-10.1 [facility] Comment on above: Performed By: #### A CET, CMP, SALYC #### [facility] [address] [place] [address] Dr. Bob Avitia Chloride [Moles/Vol] 103 mmol/L Normal 98-107 [facility] Comment on above: Performed By: #### A CET, CMP, SALYC #### [facility] [address] [place] [address] Dr. Bob Avitia CO2 [Moles/Vol] 26.1 mmol/L Normal 21.0-32.0 [facility] Comment on above: Performed By: #### A CET, CMP, SALYC #### [facility] [address] [place] [address] Dr. Bob Avitia Creatinine [Mass/Vol] 0.76 mg/dL Normal 0.55-1.02 [facility] Comment on above: Performed By: #### A CET, CMP, SALYC #### [facility] [address] [address] [address] Bob Avitia EGFR-AF [place] >60 Normal >=60 [facility] Comment on above: Performed By: #### A CET, CMP, SALYC #### [facility] [address] [address] [address] Bob Avitia EGFR-NON AF [place] >60 Normal >=60 [facility] Comment on above: Performed By: #### A CET, CMP, SALYC #### [facility] [address] [address] [address] Bob Avitia Globulin (S) [Mass/Vol] 3.6 g/dL Normal [facility] Comment on above: Performed By: #### A CET, CMP, SALYC #### [facility] [address] [place] [address] Dr. Bob Avitia Glucose [Mass/Vol] 98 mg/dL Normal 74-106 [facility] Comment on above: Performed By: #### A CET, CMP, SALYC #### [facility] [address] [place] [address] Dr. Bob Avitia Potassium [Moles/Vol] 3.3 mmol/L Critically low 3.5-5.1 [facility] Comment on above: Performed By: #### A CET, CMP, SALYC #### [facility] [address] [place] [address] Dr. Bob Avitia Protein [Mass/Vol] 6.7 g/dL Normal 6.4-8.2 [facility] Comment on above: Performed By: #### A CET, CMP, SALYC #### [facility] [address] [address] [address] Bob Avitia Sodium [Moles/Vol] 140 mmol/L Normal 136-145 [facility] Comment on above: Performed By: #### A CET, CMP, SALYC #### [facility] [address] [address] [address] Bob Avitia Urea nitrogen [Mass/Vol] 10.0 mg/dL Normal 7.0-18.0 [facility] Comment on above: Performed By: #### A CET, CMP, SALYC #### [facility] [address] [place], [place] [address] Dr. Bob Avitia Urea nitrogen/Creatinine [Mass ratio] 13.2 mg/mg Normal [facility] Comment on above: Performed By: #### A CET, CMP, SALYC #### [facility] [address] [place], [place] [address] Dr. Bob Avitia ED Note-Physicianon 06-10-19 ED Note-Physician Normal [facility] Comment on above: Result Comment: Elec tronically Signed By: Bret Baker PA-C\.br\Date and Time Signed: 05/17/22 10:41 EDT\.br\Electronically Co-Signed By: Bertin Fernandes MD\.br\Date and Time Co-Signed: 06/09/22 20:52 EDT Coding Summary.on 06-04-2022 Coding Summary. Normal [facility] COVID + FLU Quick Testingon 06-03-2022 SARS-CoV-2 (COVID-19) RNA CHANTEL+probe Ql (Unsp spec) Negative [facility] [address] Other COVID + FLU Quick Testing Negative [facility] [address] Other C Urineon 06-02-2022 Bacteria identified Cx Nom (U) Normal [facility] Comment on above: Performed By: #### 2 [id number], [id number], 0589810 ####[facility] [address] [place] [address] Auto Diffon 05-31-2022 Basophils/100 WBC (Bld) 0.4 % Normal 0.0-2.0 [facility] Comment on above: Order Comment: Order Added by Discern Expert. Performed By: #### 1 [id number], 91189359, 07729845, 6867362, 8079122, 4026372 ####[facility] [address] [place] [address] Basophils/Leukocytes Auto (Bld) [Pure # fraction] 0.0 E9/L Normal 0.0-0.2 [facility] Comment on above: Order Comment: Order Added by Apple Expert. Performed By: #### 1 [id number], 90302652, 13405506, 1623665, 4352579, 8407745 ####[address] [place] [address] Eosinophils/100 WBC (Bld) 1.0 % Normal 0.0-8.0 [facility] Comment on above: Order Comment: Order Added by Discern Expert. Performed By: #### 1 9011810, 94472697, 67328560, 5527120, 5885087, 3838405 ####[address] [place] [address] Eosinophils/Leukocytes Auto (Bld) [Pure # fraction] 0.1 E9/L Normal 0.0-0.5 [facility] Comment on above: Order Comment: Order Added by Apple Expert. Performed By: #### 1 4860823, 44259289, 57056524, 2512414, 6660399, 1093386 ####[address] [address] Lymphocytes/100 WBC (Bld) 37.8 % Normal 14.0-50.0 [facility] Comment on above: Order Comment: Order Added by Apple Expert. Performed By: #### 1 7160807, 59940270, 81088757, 6593406, 3343556, 7885493 ####[address] [address] Lymphocytes/Leukocytes Auto (Bld) [Pure # fraction] 3.0 E9/L Normal 1.0-4.0 [facility] Comment on above: Order Comment: Order Added by Apple Expert. Performed By: #### 1 3252769, 78309552, 80640199, 9347241, 0553068, 3346663 ####[address] [place] [address] Monocytes/100 WBC (Bld) 10.1 % Normal 4.0-14.0 [facility] Comment on above: Order Comment: Order Added by Apple Expert. Performed By: #### 1 6952863, 04535164, 59176368, 1901371, 8517610, 0445156 ####[address] [place] [address] Monocytes/Leukocytes Auto (Bld) [Pure # fraction] 0.8 E9/L Normal 0.2-1.0 [facility] Comment on above: Order Comment: Order Added by Discern Expert. Performed By: #### 1 7783749, 45623052, 03531243, 2581785, 3692481, 2256291 ####[address] [address] Neutrophils/100 WBC (Bld) 50.7 % Normal 36.0-75.0 [facility] Comment on above: Order Comment: Order Added by Discern Expert. Performed By: #### 1 6505716, 83009093, 00289387, 2261817, 1038940, 5840730 ####[address] [address] Neutrophils/Leukocytes Auto (Bld) [Pure # fraction] 4.0 E9/L Normal 2.0-7.5 [facility] Comment on above: Order Comment: Order Added by Discern Expert. Performed By: #### 1 6485445, 92053069, 10960562, 8726485, 7807327, 4966131 ####[address] [place] [address] BMPon 05-31-2022 Creatinine [Mass/Vol] 0.8 mg/dL Normal 0.5-1.3 [facility] Comment on above: Performed By: #### 1 8666580, 32447047, 46920547, 2528498, 6988871, 5127947 ####[address] [place] [address] Urea nitrogen [Mass/Vol] 8 mg/dL Normal 5-21 [facility] Comment on above: Performed By: #### 1 8875778, 92223489, 73968005, 6095756, 1819348, 2413919 ####[facility] [address] [place] [address] Urea nitrogen/Creatinine [Mass ratio] 10 No Units Normal 10-20 [facility] Comment on above: Performed By: #### 1 4339850, 87611620, 10377759, 3261706, 6973851, 2176798 ####[facility] [address] [place] [address] Anion gap [Moles/Vol] 11 mmol/L Normal 6-16 [facility] Comment on above: Performed By: #### 1 3700065, 37461540, 86732509, 6962089, 9554606, 1610263 ####[facility] [address] [place] [address] Calcium [Mass/Vol] 8.2 mg/dL Low 8.9-11.1 [facility] Comment on above: Performed By: #### 1 7087302, 06186387, 81141338, 8476993, 7612797, 3342294 ####[facility] [address] [place] [address] Chloride [Moles/Vol] 105 mmol/L Normal 101-111 [facility] Comment on above: Performed By: #### 1 4861322, 56302918, 51868683, 9193531, 2428902, 0049648 ####[facility] [address] [place] [address] CO2 [Moles/Vol] 23 mmol/L Normal 21-31 [facility] Comment on above: Performed By: #### 1 5509107, 67408499, 34477337, 5747643, 3000247, 1126345 ####[facility] [address] [place] [address] Glucose [Mass/Vol] 107 mg/dL Normal 55-199 [facility] Comment on above: Result Comment: If t his glucose result represents a fasting glucose, interpretation should refer to the following reference range: 55-99 mg/dL Performed By: #### 1 1099273, 59255874, 89613262, 9932925, 7179775, 4423169 ####[facility] [address] [place] [address] Potassium [Moles/Vol] 3.5 mmol/L Normal 3.5-5.3 [facility] Comment on above: Performed By: #### 1 5628948, 48775715, 70684057, 5971641, 9360324, 6137796 ####[facility] [address] [place] [address] Sodium [Moles/Vol] 135 mmol/L Normal 135-145 [facility] Comment on above: Performed By: #### 1 4766960, 65066504, 67971697, 9018670, 7471516, 0205804 ####[facility] [address] [place] [address] CBC w/ Auto Diffon Erythrocyte distribution width (RBC) [Ratio] 14.9 % High 10.9-14.2 [facility] Comment on above: Performed By: #### 1 4861454, 88815452, 70149668, 4161332, 8764850, 3284557 ####[facility] [address] [place] [address] Hematocrit (Bld) [Volume fraction] 34.9 % Normal 34.0-46.0 [facility] Comment on above: Performed By: #### 1 4440822, 98960612, 51471381, 5897113, 1424323, 8232228 ####[facility] [address] [place] [address] Hemoglobin (Bld) [Mass/Vol] 11.4 g/dL Low 12.0-16.0 [facility] Comment on above: Performed By: #### 1 0002296, 17392776, 67095347, 0971245, 0999215, 2236216 ####[facility] [address] [place] [address] MCH (RBC) [Entitic mass] 27.0 pg Normal 27.0-34.0 [facility] Comment on above: Performed By: #### 1 7168734, 56535336, 10899308, 6374958, 0098017, 0996412 ####[facility] [address] [place] [address] MCHC (RBC) [Mass/Vol] 32.7 g/dL Normal 31.4-36.0 [facility] Comment on above: Performed By: #### 1 9666561, 58278025, 33740632, 9989233, 5996369, 7799719 ####[facility] [address] [place] [address] MCV (RBC) [Entitic vol] 82.4 fL Normal 80.0-100.0 [facility] Comment on above: Performed By: #### 1 6058923, 93087027, 51918187, 9693098, 9986339, 0684710 ####[address] [address] Platelet mean volume (Bld) [Entitic vol] 7.8 fL Normal 6.4-10.8 [facility] Comment on above: Performed By: #### 1 0390859, 22187811, 20942563, 6647193, 9579098, 8028528 ####[address] [address] Platelets (Bld) [#/Vol] 306.0 E9/L Normal 150.0-500.0 [facility] Comment on above: Performed By: #### 1 7594036, 85934050, 67628999, 9977856, 9552578, 5492139 ####[address] [place] [address] RBC (Bld) [#/Vol] 4.2 E12/L Low 4.3-5.9 [facility] Comment on above: Performed By: #### 1 6239986, 91169668, 23416394, 8588238, 3240969, 3479344 ####[address] [place] [address] WBC corrected for nucl RBC Auto (Bld) [#/Vol] 7.8 E9/L Normal 4.0-11.0 [facility] Comment on above: Performed By: #### 1 3724629, 88466312, 65956720, 5180067, 6199634, 9810808 ####[facility] [address] [place] [address] Discharge Instructionson Discharge Instructions [id number] .[id number]:127 Normal [facility] ED Clinical Summaryon 2022 ED Clinical Summary Normal [facility] ED Note-Nursingon 05-31-2022 ED Note-Nursing pt given d/c instructions and educated on importance of follow up. pt verbalized understanding of instructions and readiness for d/c. pt walked self ambulatory to waiting room in stable condition Normal [facility] ED Note-Nursing pt arrived to ed fro m home via private car with c/o feeling faint on and off for 1 month. pt refusing IV at this time. pt denies any other symptoms at this time. lung sounds clear. BG 115. NSR on monitor Normal [facility] ED Note-Physicianon 06-01-19 23 ED Note-Physician Normal [facility] Comment on above: Result Comment: Elec tronically Signed By: Annika Soto PA-C\.br\Date and Time Signed: 05/30/22 22:56 EDT\.br\Electronically Co-Signed By: Ishmael Fernandez DO\.br\Date and Time Co-Signed: 05/30/22 23:12 EDT ED Patient Education Noteon 05-31-2022 ED Patient Education Note Normal [facility] ED Patient Summaryon 023 ED Patient Summary Normal [facility] Monitor Recordon 05-31-2022 Monitor Record [id number] 1.00CD:127 Normal [facility] PT & PTTon 05-31-2022 aPTT Coag (PPP) [Time] 30.1 second(s) Normal 25.1-36.5 [facility] Comment on above: Result Comment: Para meter 15 days - 4 weeks 1 - 5 months 6 - 11 months 1 - 5 years 6 - 10 years 11 - 17 years PTT Mean: 35.4 (27.6-45.6) Mean: 33.5 (24.8-40.7) Mean: 32.4 (25.1-40.7) Mean: 31.6 (24.0-39.2) Mean: 31.6 (26.9-38.7) Mean: 31.0 (24.6-38.4) Pediatric Reference ranges were obtained from a study by Kalen Olivo et al. prepared from 1437 samples obtained at 7 different centers using the same coagulation reagent and instrumentation as [facility]. Currently there are no coagulation studies available worldwide for children to 14 days, and no normal ranges. Heparin therapeutic range (represented by Anti-Factor Xa activity of 0.2 - 0.4 U/mL) corresponds to PTT of 56.6 - 109.0 sec. Performed By: #### 1 [id number], 25124723, 30891020, 1282651, 5120097, 6719922 ####[facility] [address] [place] [address] INR Coag (PPP) [Relative time] 1.0 {INR} Invalid Interpretation Code [facility] Comment on above: Result Comment: INR results are specifically intended to assess patients stabilized on long-term Anticoagulation therapy suggested INR?s ?Less Intensive Anticoagulation? 2.0 ? 3.0Conventional Range 3.0 ? 4.5 Performed By: #### 1 7954882, 11276965, 61615792, 4936708, 1227972, 4894875 ####[facility] [address] [place] [address] PT Coag (PPP) [Time] 10.8 second(s) Normal 9.4-12.5 [facility] Comment on above: Result Comment: 15 d ays - 4 weeks 1 - 5 months 6 -11 months 1 ? 5 years 6 ? 10 years 11 -17 years Mean: 11.2 (9.5 ? 12.6) Mean: 11.0 (9.7 ? 12.8) Mean: 11.0 (9.8 ? 13.0) Mean: 11.3 (9.9 ? 13.4) Mean: 11.7 (10.0 ? 14.6) Mean: 11.8 (10.0 - 14.1) Pediatric Reference ranges were obtained from a study by Kalen Olivo et al. prepared from 1437 samples obtained at 7 different centers using the same coagulation reagent and instrumentation as [facility]. Currently there are no coagulation studies available worldwide for children to 14 days, and no normal ranges. Performed By: #### 1 [id number], 44943521, 87676868, 4006967, 7648425, 7834193 ####[facility] [address] [place] [address] Prescriptions/Work Noteson 0 05-31-2022 Prescriptions/Work Notes [id number] .00CD:127 Normal [facility] Troponin 0 Hr.on 05-31-2022 Troponin I.cardiac [Mass/Vol] ng/mL Low 10.10-27.10 [facility] Comment on above: Result Comment: The 95% CI (Confidence Interval) PPV (Positive Predictive Value) for myocardial infarction in females is 38 pg/mL, in males 51 pg/mL. The results should be used in conjunction with clinical conditions of myocardial infarction.(Access High Sensitivity Troponin I Instructions For Use, Filipe [place], October 2017) Performed By: #### 1 [id number], 13920084, 50895007, 4602180, 2879742, 1735348 ####[facility] [address] [place] [address] U BetaHcg Qualon 05-31-2022 HCG.beta subunit (U) [Moles/Vol] Negative Normal [facility] Comment on above: Performed By: #### 2 4894388, 74719917, 8866923 ####[facility] [address] [place] [address] UA With Cult Reflexon 2022 Bacteria LM Ql (Urine sed) TRACE Normal Trace [facility] Comment on above: Performed By: #### 2 4834495, 08198901, 6760723 ####[facility] [address] [place] [address] Bilirubin Ql (U) Negative Normal Negative [facility] Comment on above: Performed By: #### 2 0506831, 75116225, 8270045 ####[facility] [address] [place] [address] Clarity (U) CLEAR Normal Clear [facility] Comment on above: Performed By: #### 2 0201591, 72354270, 5340437 ####[address] [address] Color (U) YELLOW Normal Yellow [facility] Comment on above: Performed By: #### 2 9821463, 15093862, 1955271 ####[address] [address] Epithelial cells.squamous LM.HPF (Urine sed) [#/Area] 0-2 Normal 0-2 [facility] Comment on above: Performed By: #### 2 5217643, 32205055, 2281002 ####[facility] [address] [place] [address] Glucose Test strip (U) [Mass/Vol] Negative Normal Negative [facility] Comment on above: Performed By: #### 2 1020380, 28600717, 6899859 ####[facility] [address] [place] [address] Hemoglobin Ql (U) Negative Normal Negative [facility] Comment on above: Performed By: #### 2 2625484, 93445097, 2395587 ####[facility] [address] [place] [address] Ketones (U) [Mass/Vol] Negative Normal Negative [facility] Comment on above: Performed By: #### 2 8312184, 94149955, 8640941 ####[facility] [address] [place] [address] Avoca.plasma/Avoca. RBC (Bld) [Mass ratio] 0-3 Normal 0-3 [facility] Comment on above: Performed By: #### 2 2793874, 64557736, 1298946 ####[address] [address] Nitrite Ql (U) Negative Normal Negative [facility] Comment on above: Performed By: #### 2 4310897, 57478850, 3693114 ####[address] [address] pH (U) 6.0 [pH] Invalid Interpretation Code 5.0-9.0 [facility] Comment on above: Performed By: #### 2 0618926, 97349081, 1318766 ####[address] [address] Protein (U) [Mass/Vol] Negative Normal Negative [facility] Comment on above: Performed By: #### 2 8437551, 16769827, 3973167 ####[place] [address] Specific gravity (U) [Rel density] <=1.005 Invalid Interpretation Code 1.005-1.030 [facility] Comment on above: Performed By: #### 2 6302225, 15019682, 7785806 ####[address] [address] Type of Urine collection method Clean Catch Normal [facility] Comment on above: Performed By: #### 2 1163035, 68050420, 1792242 ####[address] [address] Urobilinogen Qn (U) 0.2 {Sandee'U}/dL Normal 0.0-1.0 [facility] Comment on above: Performed By: #### 2 2384244, 61413461, 6299453 ####[address] [address] WBC Auto Ql (U) 1+ Abnormal Negative [facility] Comment on above: Performed By: #### 2 9735212, 43868071, 5283751 ####[facility] [address] [place] [address] WBC LM.HPF (Urine sed) [#/Area] 0-5 Normal 0-5 [facility] Comment on above: Performed By: #### 2 3744254, 89599988, 3167663 ####[facility] [address] [place] [address] XR Chest Single Viewon 05-31 XR Chest Single View Normal Fish er [facility] eGFRon 05-31-2022 GFR/1.73 sq M.predicted among blacks MDRD (S/P/Bld) [Vol rate/Area] mL/min/{1.73_m2} Normal >=59 [facility] Comment on above: Order Comment: Order added by Discern Expert. Result Comment: eGFR is race adjusted. AA=. Performed By: #### 1 1891680, 60794311, 89595224, 2549936, 2349531, 8848005 ####[facility] [address] [place] [address] GFR/1.73 sq M.predicted among non-blacks MDRD (S/P/Bld) [Vol rate/Area] mL/min/{1.73_m2} Normal >=59 [facility] Comment on above: Order Comment: Order added by Discern Expert. Result Comment: Report Programmer akbar kidney disease could be indicated at eGFR's of less than 60 mL/min/1.73m2. Kidney failure is indicated at less than 15 mL/min/1.73m2. Performed By: #### 1 1584647, 99613462, 82950757, 0635134, 1478697, 0174697 ####[facility] [address] [place] [address] CHEMISTRYOrdered By: SYSTEM SYSTEM on 05-30-2022 Anion gap [Moles/Vol] 11 mmol/L Normal 6 - 16 mEq/L [facility] Calcium [Mass/Vol] 8.2 mg/dL Low 8.9 - 11. 1 mg/dL [facility] Chloride [Moles/Vol] 105 mmol/L Normal 101 - 1 11 mmol/L [facility] CO2 [Moles/Vol] 23 mmol/L Normal 21 - 31 mmol/L [facility] Remisol Creatinine [Mass/Vol] 0.8 mg/dL Normal 0.5 - 1.3 mg/dL [facility] Remisol GFR/1.73 sq M.predicted among blacks MDRD (S/P/Bld) [Vol rate/Area] mL/min/1.73 m2 Normal >=59mL/min/ 1.73 m2 [facility] Chem S GFR/1.73 sq M.predicted among non-blacks MDRD (S/P/Bld) [Vol rate/Area] mL/min/1.73 m2 Normal >=59mL/min/ 1.73 m2 [facility] Chem S Glucose [Mass/Vol] 107 mg/dL Normal 55 - 199 mg/dL [facility] Remisol Potassium [Moles/Vol] 3.5 mmol/L Normal 3.5 - 5.3 mmol/L [facility] Remisol Sodium [Moles/Vol] 135 mmol/L Normal 135 - 145 mmol/L [facility] Remisol Troponin I.cardiac [Mass/Vol] pg/mL Low 10.10 - 27.10 pg/mL [facility] Remisol Urea nitrogen [Mass/Vol] 8 mg/dL Normal 5 - 21 mg/dL [facility] Remisol Urea nitrogen/Creatinine [Mass ratio] 10 mg/mg Normal 10 - 20 [facility] Remisol CHEMISTRYOrdered By: Lab ROP User on 05-30-2022 Glucose [Mass/Vol] 115 mg/dL High 55 - 99 mg/dL [facility] POC Subsection Comment on above: Result Comment: Keysha velasquez RN/ POC Device SN [id number] Invalid Interpretation Code [facility] POC Subsection POC User ID [id number] Invalid Interpretation Code [facility] POC Subsection POC Username EMILY SALDANA Invalid Interpretation Code [facility] POC Subsection COAGULATIONOrdered By: Abraham Colin on 05-30-2022 aPTT Coag (PPP) [Time] 30.1 s Normal 25.1 - 36.5 second(s) [facility] Auto Coag INR Coag (PPP) [Relative time] 1.0 {INR} Invalid Interpretation Code [facility] Auto Coag PT Coag (PPP) [Time] 10.8 s Normal 9.4 - 1 2.5 second(s) [facility] Auto Coag Capillary Glucose POCon 05-03 Glucose [Mass/Vol] 115 mg/dL High 55-99 [facility] Comment on above: Result Comment: Keysha velasquez RN/ Performed By: #### 2 [id number] ####[facility] [address] [place] [address] Consent for Treatmenton 05-03 Consent for Treatment [id number] .00CD:127 Normal [facility] HEMATOLOGYOrdered By: SYSTEM SYSTEM on 05-30-2022 Basophils/100 WBC (Bld) 0.4 % Normal 0.0 - 2.0 % [facility] HemeAutoSS Basophils/Leukocytes Auto (Bld) [Pure # fraction] 0.0 E9/L Normal 0.0 - 0.2 E9/L [facility] HemeAutoSS Eosinophils/100 WBC (Bld) 1.0 % Normal 0.0 - 8.0 % [facility] HemeAutoSS Eosinophils/Leukocytes Auto (Bld) [Pure # fraction] 0.1 E9/L Normal 0.0 - 0.5 E9/L [facility] HemeAutoSS Lymphocytes/100 WBC (Bld) 37.8 % Normal 14.0 - 50.0 % [facility] HemeAutoSS Lymphocytes/Leukocytes Auto (Bld) [Pure # fraction] 3.0 E9/L Normal 1.0 - 4.0 E9/L [facility] HemeAutoSS Monocytes/100 WBC (Bld) 10.1 % Normal 4.0 - 14.0 % [facility] HemeAutoSS Monocytes/Leukocytes Auto (Bld) [Pure # fraction] 0.8 E9/L Normal 0.2 - 1.0 E9/L [facility] HemeAutoSS Neutrophils/100 WBC (Bld) 50.7 % Normal 36.0 - 75.0 % [facility] HemeAutoSS Neutrophils/Leukocytes Auto (Bld) [Pure # fraction] 4.0 E9/L Normal 2.0 - 7.5 E9/L [facility] HemeAutoSS HEMATOLOGYOrdered By: Abraham Colin on 05-30-2022 Erythrocyte distribution width (RBC) [Ratio] 14.9 % High 10.9 - 14.2 % [facility] HemeAutoSS Hematocrit (Bld) [Volume fraction] 34.9 % Normal 34.0 - 46.0 % [facility] HemeAutoSS Hemoglobin (Bld) [Mass/Vol] 11.4 g/dL Low 12.0 - 16.0 gm/dL [facility] HemeAutoSS MCH (RBC) [Entitic mass] 27.0 pg Normal 27.0 - 34.0 pg [facility] HemeAutoSS MCHC (RBC) [Mass/Vol] 32.7 g/dL Normal 31.4 - 36.0 gm/dL [facility] HemeAutoSS MCV (RBC) [Entitic vol] 82.4 fL Normal 80.0 - 100.0 fL [facility] HemeAutoSS Platelet mean volume (Bld) [Entitic vol] 7.8 fL Normal 6.4 - 10.8 fL [facility] HemeAutoSS Platelets (Bld) [#/Vol] 306.0 E9/L Normal 150. 0 - 500.0 E9/L [facility] HemeAutoSS RBC (Bld) [#/Vol] 4.2 E12/L Low 4.3 - 5.9 E12/L [facility]eAutoSS WBC corrected for nucl RBC Auto (Bld) [#/Vol] 7.8 E9/L Normal 4.0 - 11.0 E9/L [facility] HemeAutoSS SEROLOGYOrdered By: Abraham glez on 05-30-2022 HCG.beta subunit (U) [Moles/Vol] Negative Normal [facility] URINALYSISOrdered By: Abraham Colin on 05-30-2022 Bacteria LM Ql (Urine sed) Trace /HPF Normal Trace/HPF [facility] UA Auto SS Bilirubin Ql (U) Negative (05/30/22 10:49 PM) Normal Negative [facility] UA Auto SS Clarity (U) Clear (05/30/22 10:49 PM) Normal Clear [facility] UA Auto SS Color (U) Yellow (05/30/22 10:49 PM) Normal Yellow [facility] UA Auto SS Epithelial cells.squamous LM.HPF (Urine sed) [#/Area] 0-2 /HPF Normal 0-2/HPF [facility] UA Aut o SS Glucose Test strip (U) [Mass/Vol] Negative (05/30/22 10:49 PM) Normal Negative [facility] UA Auto SS Hemoglobin Ql (U) Negative (05/30/22 10:49 PM) Normal Negative [facility] UA Auto SS Ketones (U) [Mass/Vol] Negative (05/30/22 10:49 PM) Normal Negative [facility] UA Auto SS Avoca.plasma/Avoca. RBC (Bld) [Mass ratio] 0-3 /HPF Normal 0-3/HPF [facility] UA A uto SS Nitrite Ql (U) Negative (05/30/22 10:49 PM) Normal Negative [facility] UA Auto SS pH (U) 6.0 *NA* (05/30/22 10:49 PM) Invalid Interpretation Code 5.0 - 9.0 [facility] UA Auto SS Protein (U) [Mass/Vol] Negative (05/30/22 10:49 PM) Normal Negative [facility] UA Auto SS Specific gravity (U) [Rel density] <=1.005 *NA* (05/30/22 10:49 PM) Invalid Interpretation Code 1.005 - 1.030 [facility] UA Auto SS UA Spec Desc Clean Catch (05/30/22 10:49 PM) Normal [facility] UA Auto SS Urobilinogen Qn (U) 0.6755836 {Sandee'U}/dL Normal 0.0 - 1.0 EU/dL [facility] UA Auto SS WBC Auto Ql (U) 1+ *ABN* (05/30/22 10:49 PM) Invalid Interpretation Code Negative [facility] UA Auto SS WBC LM.HPF (Urine sed) [#/Area] 0-5 /HPF Normal 0-5/HPF [facility] UA Auto SS Coding Summary.on 05-18-2022 Coding Summary. Normal [facility] Discharge Instructionson Discharge Instructions [id number]# 1.00CD:127 [facility] Prescriptions/Work Noteson 0 05-18-2022 Prescriptions/Work Notes [id number]# 1.00CD:127 [facility] Consent for Treatmenton 05-01 Consent for Treatment [id number]#1 .00CD:127 [facility] ED Clinical Summaryon 2022 ED Clinical Summary Normal Guru r [facility] ED Patient Education Noteon 05-17-2022 ED Patient Education Note Normal [facility] ED Patient Summaryon 023 ED Patient Summary Normal [facility] XR Chest 2 Viewson 3 XR Chest 2 Views Normal Jay Joni [facility] Coding Summary.on 05-16-2022 Coding Summary. Normal [facility] Auto Diffon 05-10-2022 Basophils/100 WBC (Bld) 0.9 % Normal 0.0-2.0 [facility] Comment on above: Order Comment: Order Added by Discern Expert. Performed By: #### 1 5310309, 22618568, 8626580, 1719072, 759930377, 7446128, 8457886 ####[facility] [address] [place] [address] Basophils/Leukocytes Auto (Bld) [Pure # fraction] 0.0 E9/L Normal 0.0-0.2 [facility] Comment on above: Order Comment: Order Added by Discern Expert. Performed By: #### 1 4327838, 26264372, 2992187, 1833457, 502389288, 2523524, 2429475 ####[facility] [address] [place] [address] Eosinophils/100 WBC (Bld) 1.1 % Normal 0.0-8.0 [facility] Comment on above: Order Comment: Order Added by Discern Expert. Performed By: #### 1 5384003, 90470323, 1374767, 1258144, 628062010, 7113691, 4827044 ####[facility] [address] [place] [address] Eosinophils/Leukocytes Auto (Bld) [Pure # fraction] 0.0 E9/L Normal 0.0-0.5 [facility] Comment on above: Order Comment: Order Added by Discern Expert. Performed By: #### 1 7537734, 18153079, 1125036, 3246957, 782421246, 8875196, 9435017 ####[facility] [address] [place] [address] Lymphocytes/100 WBC (Bld) 23.6 % Normal 14.0-50.0 [facility] Comment on above: Order Comment: Order Added by Discern Expert. Performed By: #### 1 6142704, 65182309, 3238259, 5006662, 030556443, 1887706, 1988596 ####[place] [address] [place] [address] Lymphocytes/Leukocytes Auto (Bld) [Pure # fraction] 0.9 E9/L Low 1.0-4.0 [facility] Comment on above: Order Comment: Order Added by Discern Expert. Performed By: #### 1 2120616, 87428494, 1093697, 1913135, 596515755, 7769713, 3513599 ####[address] [address] Monocytes/100 WBC (Bld) 9.1 % Normal 4.0-14.0 [facility] Comment on above: Order Comment: Order Added by Discern Expert. Performed By: #### 1 2653659, 83505019, 7616909, 4632660, 102395104, 7389581, 0587677 ####[place] [address] [place] [address] Monocytes/Leukocytes Auto (Bld) [Pure # fraction] 0.4 E9/L Normal 0.2-1.0 [facility] Comment on above: Order Comment: Order Added by Discern Expert. Performed By: #### 1 5875951, 55507180, 5023959, 6350723, 879463825, 6489530, 6111386 ####[place] [address] [place] [address] Neutrophils/100 WBC (Bld) 65.3 % Normal 36.0-75.0 [facility] Comment on above: Order Comment: Order Added by Discern Expert. Performed By: #### 1 5608695, 93183038, 9830227, 4040868, 991455065, 6157318, 3094079 ####[place] [address] [place] [address] Neutrophils/Leukocytes Auto (Bld) [Pure # fraction] 2.6 E9/L Normal 2.0-7.5 [facility] Comment on above: Order Comment: Order Added by Discern Expert. Performed By: #### 1 0040330, 27869383, 0554657, 3973441, 018644565, 0955447, 7077920 ####[address] [address] CBC w/ Auto Diffon Erythrocyte distribution width (RBC) [Ratio] 14.7 % High 10.9-14.2 [facility] Comment on above: Performed By: #### 1 1500271, 98132956, 3535078, 6133007, 814746107, 0803560, 5106309 ####[address] [address] Hematocrit (Bld) [Volume fraction] 37.2 % Normal 34.0-46.0 [facility] Comment on above: Performed By: #### 1 8273436, 80040910, 9383424, 5008943, 102598112, 8494854, 6998233 ####[address] [address] Hemoglobin (Bld) [Mass/Vol] 11.8 g/dL Low 12.0-16.0 [facility] Comment on above: Performed By: #### 1 0683031, 51556665, 7267904, 4726676, 114250789, 8937110, 5019355 ####[place] [address] [place] [address] MCH (RBC) [Entitic mass] 26.3 pg Low 27.0-34.0 [facility] Comment on above: Performed By: #### 1 4531850, 93248463, 2955302, 4473389, 099273796, 6736966, 4806692 ####[address] [place] [address] MCHC (RBC) [Mass/Vol] 31.7 g/dL Normal 31.4-36.0 [facility] Comment on above: Performed By: #### 1 5651144, 76602921, 0708371, 5231112, 474092110, 7122728, 5800367 ####[place] [address] [place] 3512557 MCV (RBC) [Entitic vol] 82.8 fL Normal 80.0-100.0 [facility] Comment on above: Performed By: #### 1 1666862, 06868849, 9751786, 0603568, 944918116, 1272074, 6372775 ####[address] [address] Platelet mean volume (Bld) [Entitic vol] 8.5 fL Normal 6.4-10.8 [facility] Comment on above: Performed By: #### 1 6719540, 26463987, 7329089, 4447352, 345865767, 7926756, 4299534 ####[address] [address] Platelets (Bld) [#/Vol] 353.0 E9/L Normal 150.0-500.0 [facility] Comment on above: Performed By: #### 1 1830721, 65888491, 9798941, 5506470, 019314045, 2944359, 5551243 ####[address] [address] RBC (Bld) [#/Vol] 4.5 E12/L Normal 4.3-5.9 [facility] Comment on above: Performed By: #### 1 2979926, 00465416, 8160791, 8633652, 098882002, 4052355, 8720050 ####[address] [address] WBC corrected for nucl RBC Auto (Bld) [#/Vol] 4.0 E9/L Normal 4.0-11.0 [facility] Comment on above: Performed By: #### 1 0136259, 74120256, 0246836, 7112394, 980530672, 7913202, 2309419 ####[facility] [address] [place] [address] CMPon 05-10-2022 Albumin [Mass/Vol] 3.6 g/dL Normal 3.3-5.0 [facility] Comment on above: Performed By: #### 1 2877428, 47367885, 2691485, 8054969, 122430993, 5042960, 2018286 ####[facility] [address] [place] [address] Albumin/Globulin (S) [Mass conc ratio] 1.0 Low 1.1-2.2 [facility] Comment on above: Performed By: #### 1 5080001, 03140913, 6772548, 8376500, 536083311, 5948906, 3483067 ####[facility] [address] [place] [address] ALP [Catalytic activity/Vol] 85 Int._Unit/L Normal 21-98 [facility] Comment on above: Performed By: #### 1 5371546, 66236071, 1499062, 7398411, 524045169, 1292134, 0091759 ####[facility] [address] [place] [address] ALT No additional P-5'-P [Catalytic activity/Vol] 21 Int._Unit/L Normal 6-46 [facility] Comment on above: Performed By: #### 1 8116915, 27130875, 8684721, 0385538, 166457872, 1485437, 6817669 ####[facility] [address] [place] [address] Anion gap [Moles/Vol] 13 mmol/L Normal 6-16 [facility] Comment on above: Performed By: #### 1 8242631, 67202313, 4141944, 9015255, 536419491, 3745666, 7845895 ####[facility] [address] [place] [address] AST [Catalytic activity/Vol] 24 Int._Unit/L Normal 5-43 [facility] Comment on above: Performed By: #### 1 6783167, 03257878, 8982434, 1178478, 204343599, 7855203, 6874558 ####[facility] [address] [place] [address] Bilirubin [Mass/Vol] 0.2 mg/dL Normal 0.0-1.1 [facility] Comment on above: Performed By: #### 1 3100997, 07204129, 9700935, 0131152, 724595873, 5682826, 3569437 ####[facility] [address] [place] [address] Calcium [Mass/Vol] 8.5 mg/dL Low 8.9-11.1 [facility] Comment on above: Performed By: #### 1 4934811, 96017910, 5587858, 5556627, 122003343, 5289205, 6141870 ####[facility] [address] [place] [address] Chloride [Moles/Vol] 102 mmol/L Normal 101-111 [facility] Comment on above: Performed By: #### 1 0404942, 43807982, 6618033, 4117027, 819443709, 2769924, 5997008 ####[facility] [address] [place] [address] CO2 [Moles/Vol] 26 mmol/L Normal 21-31 [facility] Comment on above: Performed By: #### 1 4382836, 15617482, 4730888, 7252873, 596780053, 6445690, 0574588 ####[facility] [address] [place] [address] Creatinine [Mass/Vol] 0.7 mg/dL Normal 0.5-1.3 [facility] Comment on above: Performed By: #### 1 3380270, 93293826, 8712348, 9206167, 613067155, 2942122, 1414200 ####[facility] [address] [place] [address] Globulin (S) [Mass/Vol] 3.5 g/dL Normal 1.4-4.0 [facility] Comment on above: Performed By: #### 1 9526701, 16638267, 4929730, 8930275, 633400947, 0010324, 1345535 ####[facility] [address] [place] [address] Glucose [Mass/Vol] 70 mg/dL Normal 55-199 [facility] Comment on above: Result Comment: If t his glucose result represents a fasting glucose, interpretation should refer to the following reference range: 55-99 mg/dL Performed By: #### 1 8425909, 44750784, 2195654, 2142394, 724332311, 0155224, 2041418 ####[facility] [address] [place] [address] Potassium [Moles/Vol] 3.8 mmol/L Normal 3.5-5.3 [facility] Comment on above: Performed By: #### 1 5792019, 07560696, 3552848, 2432810, 525797087, 4159467, 4298930 ####[facility] [address] [place] [address] Protein [Mass/Vol] 7.1 g/dL Normal 6.0-7.8 [facility] Comment on above: Performed By: #### 1 0752571, 40027856, 0744828, 7699713, 936376101, 4368991, 8946098 ####[facility] [address] [place] [address] Sodium [Moles/Vol] 137 mmol/L Normal 135-145 [facility] Comment on above: Performed By: #### 1 8209583, 54026364, 7586910, 2873114, 727618193, 3335706, 2728606 ####[facility] [address] [place] [address] Urea nitrogen [Mass/Vol] 7 mg/dL Normal 5-21 [facility] Comment on above: Performed By: #### 1 9087538, 45058197, 7225114, 2939524, 591445846, 0559391, 7487089 ####[facility] [address] [place] [address] Urea nitrogen/Creatinine [Mass ratio] 10 No Units Normal 10-20 [facility] Comment on above: Performed By: #### 1 [id number], [id number], [id number], [id number], [id number], 3688721, [id number] ####[facility] [address] [place] [address] Coding Summary.on 05-10-2022 Coding Summary. Normal [facility] Lipid Panelon 05-10-2022 Cholesterol [Mass/Vol] 182 mg/dL Normal 120-200 [facility] Comment on above: Performed By: #### 1 [id number], [id number], 1074230, 5646605, [id number], 9970851, 8894265 ####[facility] [address] [place] [address] Cholesterol in HDL [Mass/Vol] 42 mg/dL Invalid Interpretation Code [facility] Comment on above: Result Comment: HDL > or equal to 60 mg/dL: Low cardiovascular riskHDL < 40 mg/dL : High cardiovascular risk Performed By: #### 1 [id number], [id number], 9995240, 6780856, [id number], 5601562, 8555201 ####[facility] [address] [place] [address] Cholesterol in LDL [Mass/Vol] 133 mg/dL High <=129 [facility] Comment on above: Performed By: #### 1 [id number], 63287216, 6943946, 9267245, [id number], 9549404, 2959766 ####[facility] [address] [place] [address] Cholesterol in VLDL [Mass/Vol] 17 mg/dL Normal 7-40 [facility] Comment on above: Performed By: #### 1 [id number], 37129436, 7469961, 6596126, [id number], 4940236, 5561744 ####[facility] [address] [place] [address] Triglyceride [Mass/Vol] 85 mg/dL Normal <=149 [facility] Comment on above: Performed By: #### 1 [id number], 89501220, 2017615, 2457138, [id number], 9134507, 8914053 ####[facility] [address] [place] [address] Physician Orderon 05-10-2022 Physician Order [id number] .00CD:127 Normal [facility] TSH With T4fr Reflexon 05-10 TSH Qn 1.70 m[IU]/L Normal 0.34-5.60 [facility] Comment on above: Performed By: #### 1 [id number], [id number], 2903412, 5863048, 213323758, 1525105, 2104763 ####[facility] [address] [place] [address] Vitamin D 25 Hydroxyon 05-10 25-hydroxyvitamin D3 [Mass/Vol] 16.1 ng/mL Low 30.0-100.0 [facility] Comment on above: Result Comment: Vit moura D deficiency has been defined as a level of serum 25-OH vitamin D less than 20 ng/mL (1,2) by the [place] of [employer] and an Endocrine Society practice guideline. The Endocrine Society further defined vitamin D insufficiency as a level between 21 and 29 ng/mL (2). 1. IOM ([place] of [employer]). 2010. Dietary reference intakes for calcium and D. [place]: The National Academies Press. 2. Tiago MF, Sarah AMAYA, Neha FARIAS, et al. Evaluation, treatment, and prevention of vitamin D deficiency: an Endocrine Society clinical practice guideline. JCEM. 2010; 96 (7):1911-30. Performed By: #### 1 [id number], 47872004, 1728123, 1650950, 254210423, 7552980, 7899046 ####[facility] [address] [place] [address] eGFRon 05-10-2022 GFR/1.73 sq M.predicted among blacks MDRD (S/P/Bld) [Vol rate/Area] mL/min/{1.73_m2} Normal >=59 [facility] Comment on above: Order Comment: Order added by Discern Expert. Result Comment: eGFR is race adjusted. AA=. Performed By: #### 1 [id number], 72583632, 5345999, 2378547, 770805190, 4723276, 0616803 ####[facility] [address] [place] [address] GFR/1.73 sq M.predicted among non-blacks MDRD (S/P/Bld) [Vol rate/Area] mL/min/{1.73_m2} Normal >=59 [facility] Comment on above: Order Comment: Order added by Discern Expert. Result Comment: Report Programmer akbar kidney disease could be indicated at eGFR's of less than 60 mL/min/1.73m2. Kidney failure is indicated at less than 15 mL/min/1.73m2. Performed By: #### 1 [id number], 27148084, 6544251, 4823366, [id number], 1151879, 8863798 ####[facility] [address] [place] [address] Consent for Treatmenton Consent for Treatment [id number] .00CD:127 Normal [facility] Discharge Instructionson Discharge Instructions [id number] 1.00CD:127 Normal [facility] ED Clinical Summaryon 2022 ED Clinical Summary Normal Guru hassan [facility] ED Note-Physicianon 05-08-19 ED Note-Physician Normal [facility] Comment on above: Result Comment: Elec tronically Signed By: Bonnie Hutchinson PA-C\.br\Date and Time Signed: 05/07/22 13:46 EST\.br\Electronically Co-Signed By: Bonnie Hutchinson PA-C\.br\Date and Time Co-Signed: 05/07/22 15:33 EST\.br\Electronically Co-Signed By: Grant Dos Santos DO\.br\Date and Time Co-Signed: 05/07/22 18:46 EST ED Patient Education Noteon 05-07-2022 ED Patient Education Note Normal [facility] ED Patient Summaryon 023 ED Patient Summary Normal [facility] Prescriptions/Work Noteson 0 05-07-2022 Prescriptions/Work Notes [id number]# 1.00CD:127 Normal [facility] XR Chest 2 Viewson XR Chest 2 Views Normal [facility] Coding Summary.on 05-01-2022 Coding Summary. Normal [facility] COV19 Rapidon 04-25-2022 Reason for Rapid Test COVID Exposure Normal [facility] Comment on above: Performed By: #### A #### [address] [address] SARS-CoV-2 (COVID-19) RNA CHANTEL+probe Ql (Unsp spec) Negative Normal Negative [facility] Comment on above: Result Comment: The 2019 novel coronavirus SARS-CoV-2 target nucleic acids are not detected. This test is for the detection of SARS-CoV-2 RNA. Positive results are indicative of active infection with SARS-CoV-2. Positive results do not rule out bacterial infection or co-infection with other viruses. Negative results should be treated as presumptive and, if inconsistent with clinical signs and symptoms or necessary for patient management, should be tested with an alternative molecular assay.Negative results do not preclude SARS-CoV-2 infection and should not be used as the sole basis for treatment or other patient management decisions. Clinical correlation with patient history and other diagnostic information is necessary to determine patient infection status. ADDITIONAL INFORMATION: Testing was performed using the ID NOW COVID-19 test by [employer], which has received Emergency Use Authorization (EUA) by the U.S. Food and Drug Administration. The [employer] ID NOW COVID-19 test performs best when patients are tested within the first 7 days of symptom onset. Results should be interpreted with caution for asymptomatic patients or those tested outside the 7 day target. Refer to CDC guidelines for further testing algorithms. Fact sheets for this Emergency Use Authorization (EUA) assay can be found at the following links: Fact Sheet for HealthCare Providers: https://www.Ambassador.gov/media/404183/download Fact Sheet for Patients: https://www.fda.gov/media/115593/download Performed By: #### A LC #### [place] [address] ED Clinical Summaryon 2022 ED Clinical Summary [place] [address] ED Clinical Summary Person Information Name: Rosangela Lindo Cristy/[facility] Age: 42 Years : 1980 Sex: Female PCP: Shan Rivas DO Marital Status: Phone: Race: White Ethnicity: Not or Language: Luxembourger Visit Reason: Nasal drainage; Upper respiratory infection Acuity: 4 Enc Type: Emergency Med Service: Emergency Medicine Arrival: 04/25/2022 09:17:34 Discharge: 04/25/2022 10:56:00 LOS: 000 01:39 Checkin: 04/25/2022 09:17:34 Checkout: 04/25/2022 10:56:00 Dispo Type: Home or Self Care Address: [address] [place], [place] [id number] Provider Notes: History of Present Illness ? Patient presents with a chief complaint of?congestion, headache, postnasal drip?ongoing for?couple of weeks.? She has been?prescribed Augmentin and?prednisone. ?She did not complete the Augmentin. ?She states that her symptoms are worse. Review of Systems Constitutional: [No fevers, chills, sweats] Eye: [No recent visual problems] ENMT: [, nasal congestion, ] Respiratory: [No shortness of breath, cough] Cardiovascular: [No Chest pain, palpitations, syncope] Gastrointestinal: [No nausea, vomiting, diarrhea] Genitourinary: [No hematuria] Physical Exam General: [Alert and oriented, well nourished, no acute distress]. Eye: [PERRL, EOMI, normal conjunctiva]. HENT: [Normocephalic, sinus tenderness]. Neck: [Supple, non-tender, no carotid bruits, no JVD, no lymphadenopathy]. Lungs: [Clear to auscultation and percussion, non-labored respiration]. Heart: [Normal rate, regular rhythm, no murmur, gallop or edema]. Abdomen: [Soft, non-tender, non-distended, normal bowel sounds, no masses]. Musculoskeletal: [Normal range of motion and strength, no tenderness or swelling]. Skin: [Skin is warm, dry and pink, no rashes or lesions]. Neurologic: [Awake, alert, and oriented X3, CN II-XII intact]. Psychiatric: [Cooperative, appropriate mood and affect]. Diagnosis: 1:Sinusitis Problems No Problems Documented Smoking Status: Functional Status: Sensory Deficits: History of Falls: Mobility Assistance Prior to Admission: ADLs: Current Level of Assistance for Self-Care/Mobility: Cognitive Status: Allergies No Known Medication Allergies Laboratory or Other Results This Visit (last charted value for your 04/25/2022 visit) Molecular 04/25/2022 9:30 AM SARS-CoV-2 RNA Detection: Negative Misc. Micro Rapid Test 04/25/2022 9:30 AM Influenza A Ag: Negative Influenza B Ag: Negative Measurements: Height: Weight: 82.1 kg Blood Pressure: /82 mmHg BMI: Procedures No Procedures Documented Immunizations No Immunizations Documented This Visit Final Med List: New [facility]ations [id number], [address] [place], [place] [id number], [phone] amoxicillin-clavulana te (Augmentin 500 mg-125 mg oral tablet) 1 Tabs Oral (given by mouth) every 12 hours for 10 Days. Refills: 0. Last Dose: ____ fluticasone nasal (Flonase 50 mcg/inh nasal spray) 1 Sprays Nasal (into the nose) 2 times a day. Refills: 0. Last Dose: ____ Medications that have not changed Other Medications lurasidone (Latuda 20 mg oral tablet) 1 Tabs Oral (given by mouth) every day. Last Dose: ____ OXcarbazepine (OXcarbazepine 150 mg oral tablet) 1 Tabs Oral (given by mouth) every day. Last Dose: ____ OXcarbazepine (OXcarbazepine 150 mg oral tablet) 2 Tabs Oral (given by mouth) once a day (at bedtime). Last Dose: ____ sertraline (Zoloft) Oral (given by mouth) every day. Last Dose: ____ [facility] #[id number], [address] [place] [phone], [phone] amoxicillin-clavulana te (Augmentin 500 mg-125 mg oral tablet) 1 Tabs Oral (given by mouth) every 12 hours for 10 Days. Refills: 0. fluticasone nasal (Flonase 50 mcg/inh nasal spray) 1 Sprays Nasal (into the nose) 2 times a day. Refills: 0. Other Medications lurasidone (Latuda 20 mg oral tablet) 1 Tabs Oral (given by mouth) every day. OXcarbazepine (OXcarbazepine 150 mg oral tablet) 1 Tabs Oral (given by mouth) every day. OXcarbazepine (OXcarbazepine 150 mg oral tablet) 2 Tabs Oral (given by mouth) once a day (at bedtime). sertraline (Zoloft) Oral (given by mouth) every day. Care Team Members: Attending Physician: Austin Grey MD Consulting Physician: Referring Physician: Provider Role Assigned Unassigned Austin Grey MD ED Provider 04/25/2022 09:19:53 Kevin Ramos ED Nurse 04/25/2022 09:40:54 Follow up: With: Address: When: Shan Rivas [address] [place] [phone] Business (1) , only if needed Patient Education Information: Causes of Sinusitis [facility] Poison Help line: . [facility] (more content not included)... Normal [facility] ED Note-Physicianon 04-25-19 ED Note-Physician Chief Complaint Patient complains of nasal congestion and post nasal drip down to her throat. Patient was diagnosis with upper respiratory track infection around 04/11/22 but did not finish antibiotics History of Present Illness Patient presents with a chief complaint of congestion, headache, postnasal drip ongoing for couple of weeks. She has been prescribed Augmentin and prednisone. She did not complete the Augmentin. She states that her symptoms are worse. Review of Systems Constitutional: [No fevers, chills, sweats] Eye: [No recent visual problems] ENMT: [, nasal congestion, ] Respiratory: [No shortness of breath, cough] Cardiovascular: [No Chest pain, palpitations, syncope] Gastrointestinal: [No nausea, vomiting, diarrhea] Genitourinary: [No hematuria] Physical Exam General: [Alert and oriented, well nourished, no acute distress]. Eye: [PERRL, EOMI, normal conjunctiva]. HENT: [Normocephalic, sinus tenderness]. Neck: [Supple, non-tender, no carotid bruits, no JVD, no lymphadenopathy]. Lungs: [Clear to auscultation and percussion, non-labored respiration]. Heart: [Normal rate, regular rhythm, no murmur, gallop or edema]. Abdomen: [Soft, non-tender, non-distended, normal bowel sounds, no masses]. Musculoskeletal: [Normal range of motion and strength, no tenderness or swelling]. Skin: [Skin is warm, dry and pink, no rashes or lesions]. Neurologic: [Awake, alert, and oriented X3, CN II-XII intact]. Psychiatric: [Cooperative, appropriate mood and affect]. Vitals & Measurements Additional Vitals No qualifying data available. Procedure No qualifying data available. ASA Documentation Medical Decision Making Patient seen and evaluated. Sinus tenderness. Likely sinus infection. We will treat with Augmentin and Flonase. Reassurance and discharged home. Assessment/Plan 1. Sinusitis Orders: amoxicillin-clavulana te, 1 tabs, Oral, q12hr, X 10 days, # 20 tabs, 0 Refill(s), 05/05/22 10:03:00 EST, Pharmacy: [facility] #[id number] fluticasone nasal, 1 sprays, Nasal, BID, # 16 g, 0 Refill(s), Pharmacy: [facility] #[id number] - ED Professional Level 3 Refresh vitals and sections below: Problem List/Past Medical History Ongoing Anxiety Depression Seasonal nasal allergies Historical No qualifying data Procedure/Surgical History wisdom teeth Medications Inpatient No active inpatient medications Home cetirizine 10 mg oral capsule, 10 mg= 1 caps, Oral, Daily, PRN metFORMIN 750 mg oral tablet, extended release, 750 mg= 1 tabs, Oral, BID, 6 refills Allergies No Known Medication Allergies Social History Alcohol Never Home/Environment Lives with Significant other. Sexual Sexually active: Yes. History of sexual abuse: No. Substance Abuse Denies All Tobacco Never (less than 100 in lifetime) Use:. Family History Cancer of colon: Father. Dementia: Grandfather (M). Diabetes: Grandfather (M). Stroke..: Grandfather (M). Thyroid disease: Mother. Diagnostic Results Electronically signed by Austin Grey MD 04/25/22 10:12 EST Normal [facility] Flu A&B Ag Rapidon 3 Influenza A Ag Negative Normal Negative [facility] Comment on above: Performed By: #### P TT #### [address] [address] Influenza B Ag Negative Normal Negative [facility] Comment on above: Result Comment: The [employer] Influenza A+B Card 2 detects both viable and non-viable influenza A and B. Test performance depends on the amount of virus (antigen) in the specimen and may or may not compare with cell culture results performed on the same specimen. A negative test result does not exclude the infection with influenza A and/or B. Therefore, the results obtained with the [employer]Now Influenza A+B Test should be used in conjunction with clinical findings to make an accurate diagnosis. Additional testing is required to differentiate any specific influenza A+B subtypes or strains, in consultation with state or local public health departments. Performed By: #### P TT #### [facility] [address] [place] [address] CBC AUTO DIFFon 04-22-2022 BASO # 0.0 103/ul Normal 0.0-0.1 [facility] Comment on above: Performed By: #### A CET, CMP, SALYC #### [facility] [address] [place] [address] Dr. Bob Avitia Basophils/100 WBC (Bld) 0.5 % Normal 0.2-2.0 [facility] Comment on above: Performed By: #### A CET, CMP, SALYC #### [facility] [address] [place] [address] Dr. Bob Avitia EO # 0.1 103/ul Normal 0.0-0.7 [facility] Comment on above: Performed By: #### A CET, CMP, SALYC #### [facility] [address] [place] [address] Dr. Bob Avitia Eosinophils/100 WBC (Bld) 2.0 % Normal 0.9-7.0 [facility] Comment on above: Performed By: #### A CET, CMP, SALYC #### [facility] [address] [place] [address] Dr. Bob Avitia Erythrocyte distribution width (RBC) [Ratio] 13.3 % Normal 11.0-15.0 [facility] Comment on above: Performed By: #### A CET, CMP, SALYC #### [facility] [address] [place] [address] Dr. Bob Avitia Hematocrit (Bld) [Volume fraction] 34.5 % Critically low 36.0-48.0 [facility] Comment on above: Performed By: #### A CET, CMP, SALYC #### [facility] [address] [place] [address] Dr. Bob Avitia Hemoglobin (Bld) [Mass/Vol] 11.0 g/dL Critically low 12.0-16.0 [facility] Comment on above: Performed By: #### A CET, CMP, SALYC #### [facility] [address] [place] [address] Dr. Bob Avitia IG # 0.04 10e3/ul Critically high 0.00-0.03 [facility] Comment on above: Performed By: #### A CET, CMP, SALYC #### [facility] [address] [place] [address] Dr. Bob Avitia IG % 0.6 % Critically high 0.0-0.5 [facility] Comment on above: Performed By: #### A CET, CMP, SALYC #### [facility] [address] [place] [address] Dr. Bob Avitia LYMPH # 1.9 103/ul Normal 1.2-3.8 [facility] Comment on above: Performed By: #### A CET, CMP, SALYC #### [facility] [address] [place] [address] Dr. Bob Avitia Lymphocytes/100 WBC (Bld) 28.8 % Normal 20.5-60.0 [facility] Comment on above: Performed By: #### A CET, CMP, SALYC #### [facility] [address] [place] [address] [address] Bob Avitia MANUAL DIFF REQ NO Normal [facility] Comment on above: Performed By: #### A CET, CMP, SALYC #### [facility] [address] [place] [address] Dr. Bob Avitia MCH (RBC) [Entitic mass] 26.8 pg Normal 26.7-34.0 [facility] Comment on above: Performed By: #### A CET, CMP, SALYC #### [facility] [address] [place] [address] Dr. Bob Avitia MCHC (RBC) [Mass/Vol] 31.9 g/dL Normal 29.9-35.2 [facility] Comment on above: Performed By: #### A CET, CMP, SALYC #### [facility] [address] [place] [address] Dr. Bob Avitia MCV (RBC) [Entitic vol] 83.9 fL Normal 81.0-99.0 [facility] Comment on above: Performed By: #### A CET, CMP, SALYC #### [facility] [address] [place] [address] Dr. Bob Avitia MONO # 0.5 103/ul Normal 0.3-0.8 [facility] Comment on above: Performed By: #### A CET, CMP, SALYC #### [facility] [address] [place] [address] Dr. Bob Avitia Monocytes/100 WBC (Bld) 7.6 % Normal 1.7-12.0 [facility] Comment on above: Performed By: #### A CET, CMP, SALYC #### [facility] [address] [place] [address] Dr. Bob Avitia NEUT # 3.9 103/ul Normal 1.4-6.5 [facility] Comment on above: Performed By: #### A CET, CMP, SALYC #### [facility] [address] [place] [address] Dr. Bob Avitia Neutrophils/100 WBC (Bld) 60.5 % Normal 43.0-75.0 [facility] Comment on above: Performed By: #### A CET, CMP, SALYC #### [facility] [address] [place] [address] Dr. Bob Avitia Platelet mean volume (Bld) [Entitic vol] 9.0 fL Critically low 9.5-13.5 [facility] Comment on above: Performed By: #### A CET, CMP, SALYC #### [facility] [address] [place] [address] [address] Bob Avitia PLT 361 103/ul Normal 150-450 [facility] Comment on above: Performed By: #### A CET, CMP, SALYC #### [facility] [address] [place] [address] [address] Bob Avitia RBC 4.11 106/ul Critically low 4.20-5.40 [facility] Comment on above: Performed By: #### A CET, CMP, SALYC #### [facility] [address] [place] [address] [address] Bob Avitia WBC 6.5 103/ul Normal 4.0-11.0 [facility] Comment on above: Performed By: #### A CET, CMP, SALYC #### [facility] [address] [place] [address] Dr. Bob Avitia ER URINE PROFILEon 3 Bilirubin Ql (U) Negative Normal NEGATIVE [facility] Comment on above: Performed By: #### A CET, CMP, SALYC #### [facility] [address] [place] [address] Dr. Bob Avitia Clarity (U) CLEAR Normal CLEAR [facility] Comment on above: Performed By: #### A CET, CMP, SALYC #### [facility] [address] [place] [address] Dr. Bob Avitia Color (U) LT. YELLOW Normal YELLOW [facility] Comment on above: Performed By: #### A CET, CMP, SALYC #### [facility] [address] [place] [address] Dr. Bob Avitia ERUAHJazzy A micrscopic examination will be performed if indicated. Normal [facility] Comment on above: Performed By: #### A CET, CMP, SALYC #### [facility] [address] [place] [address] Dr. Bob Avitia Glucose Ql (U) Negative Normal NEGATIVE [facility] Comment on above: Performed By: #### A CET, CMP, SALYC #### [facility] [address] [place] [address] Dr. Bob Avitia Hemoglobin Ql (U) Negative Normal NEGATIVE [facility] Comment on above: Performed By: #### A CET, CMP, SALYC #### [facility] [address] [place] [address] [address] Bob Avitia Ketones Ql (U) Negative Normal NEGATIVE [facility] Comment on above: Performed By: #### A CET, CMP, SALYC #### [facility] [address] [place] [address] [address] Bob Avitia LEUKOCYTES Negative Normal NEGATIVE [facility] Comment on above: Performed By: #### A CET, CMP, SALYC #### [facility] [address] [place] [address] [address] Bob Avitia Nitrite Ql (U) Negative Normal NEGATIVE [facility] Comment on above: Performed By: #### A CET, CMP, SALYC #### [facility] [address] [place] [address] Dr. Bob Avitia pH (U) 6.0 [pH] Normal 5-9 [facility] Comment on above: Performed By: #### A CET, CMP, SALYC #### [facility] [address] [place] [address] [address] Bob Avitia SPEC GRAVITY 1.020 Normal 1.005-<=1.0 25 [facility] Comment on above: Performed By: #### A CET, CMP, SALYC #### [facility] [address] [place] [address] Dr. Bob Avitia UA PROTEIN Negative Normal NEGATIVE/ TRACE [facility] Comment on above: Performed By: #### A CET, CMP, SALYC #### [facility] [address] [place] [address] Dr. Bob Avitia UR MICRO IND NOT INDICATED Normal The [facility] Comment on above: Performed By: #### A CET, CMP, SALYC #### [facility] [address] [place] [address] Dr. Bob Avitia Urobilinogen Qn (U) 0.2 {Sandee'U}/dL Normal 0.2 - 1. 0 [facility] Comment on above: Performed By: #### A CET, CMP, SALYC #### [facility] [address] [address] [address] Bob Avitia PROF 14(COMP METB)on 023 Albumin [Mass/Vol] 3.1 g/dL Critically low 3.4-5.0 Th [facility] Comment on above: Performed By: #### C MP #### [facility] [address] [place] [address] Dr. Bob Avitia Albumin/Globulin [Mass ratio] 0.9 {ratio} Normal [facility] Comment on above: Performed By: #### C MP #### [facility] [address] [place] [address] Dr. Bob Avitia ALP [Catalytic activity/Vol] 100 U/L Normal 46-116 [facility] Comment on above: Performed By: #### C MP #### [facility] [address] [place] [address] Dr. Bob Avitia ALT [Catalytic activity/Vol] 23 U/L Normal 14-59 [facility] Comment on above: Performed By: #### C MP #### [facility] [address] [address] [address] Bob Avitia Anion gap [Moles/Vol] 11.2 mmol/L Normal Th [facility] Comment on above: Performed By: #### C MP #### [facility] [address] [address] [address] Bob Avitia AST [Catalytic activity/Vol] 12 U/L Critically low 15-37 [facility] Comment on above: Performed By: #### C MP #### [facility] [address] [address] [address] Bob Avitia Bilirubin [Mass/Vol] 0.2 mg/dL Normal 0.2-1.0 [facility] Comment on above: Performed By: #### C MP #### [facility] [address] [place] [address] Dr. Bob Avitia Calcium [Mass/Vol] 8.3 mg/dL Critically low 8.5-10.1 [facility] Comment on above: Performed By: #### C MP #### [facility] [address] [address] [address] Bob Avitia Chloride [Moles/Vol] 104 mmol/L Normal 98-107 [facility] Comment on above: Performed By: #### C MP #### [facility] [address] [address] [address] Bob Avitia CO2 [Moles/Vol] 27.7 mmol/L Normal 21.0-32.0 [facility] Comment on above: Performed By: #### C MP #### [facility] [address] [address] [address] Bob Avitia Creatinine [Mass/Vol] 0.62 mg/dL Normal 0.55-1.02 [facility] Comment on above: Performed By: #### C MP #### [facility] [address] [address] [address] Bob Avitia EGFR-AF [place] >60 Normal >=60 [facility] Comment on above: Performed By: #### C MP #### [facility] [address] [address] [address] Bob Avitia EGFR-NON AF [place] >60 Normal >=60 [facility] Comment on above: Performed By: #### C MP #### [facility] [address] [address] [address] Bob Avitia Globulin (S) [Mass/Vol] 3.5 g/dL Normal [facility] Comment on above: Performed By: #### C MP #### [facility] [address] [address] [address] Bob Avitia Glucose [Mass/Vol] 89 mg/dL Normal 74-106 [facility] Comment on above: Performed By: #### C MP #### [facility] [address] [address] [address] Bob Avitia Potassium [Moles/Vol] 3.9 mmol/L Normal 3.5-5.1 [facility] Comment on above: Performed By: #### C MP #### [facility] [address] [address] [address] Bob Avitia Protein [Mass/Vol] 6.6 g/dL Normal 6.4-8.2 [facility] Comment on above: Performed By: #### C MP #### [facility] [address] [address] [address] Bob Avitia Sodium [Moles/Vol] 139 mmol/L Normal 136-145 [facility] Comment on above: Performed By: #### C MP #### [facility] [address] [address] [address] Bob Avitia Urea nitrogen [Mass/Vol] 8.0 mg/dL Normal 7.0-18.0 [facility] Comment on above: Performed By: #### C MP #### [facility] [address] [address] [address] Bob Avitia Urea nitrogen/Creatinine [Mass ratio] 12.9 mg/mg Normal [facility] Comment on above: Performed By: #### C MP #### [facility] [address] [address] [address] Bob Avitia XR ABD FLAT UP_PA Mamie 04-22 XR ABD FLAT UP_PA CH EXAM: XR ABD FLAT UP_PA CH HISTORY: Pain; technologist notes state dull ache to the right side of the abdomen for a long time. COMPARISON: Chest radiograph dated 04/17/2021. TECHNIQUE: PA chest, AP erect abdomen and 2 AP supine views of the abdomen performed. FINDINGS: Chest: The trachea air column is unremarkable. The heart size is within normal limits. The mediastinal and hilar shadows are within normal limits. The lung oneil are clear. There is no pneumothorax. There is no osseous abnormality. Abdomen/pelvis: Nonobstructive bowel gas pattern with a moderately large amount of stool within the colon. There is no free air. There are no abnormal mass shadows or abnormal pathologic calcifications. There is slight levoscoliosis of the lumbar spine. There is a 0.6 cm sclerotic focus within the right supra-acetabular region which may represent a bone island. IMPRESSION: Unremarkable frontal view of the chest. Nonobstructive bowel gas pattern with a moderately large amount of stool within the colon. Electronically authenticated by: FLOR Sanchez: 2022-04-22 06:00 Normal [facility] Coding Summary.on 04-01-2022 Coding Summary. Normal [facility] Consent for Treatmenton 03-04 Consent for Treatment [id number]#1 .00CD:127 Normal [facility] Discharge Instructionson Discharge Instructions [id number]# 1.00CD:127 Normal [facility] ED Clinical Summaryon 2022 ED Clinical Summary Normal [facility] ED Note-Physicianon 03-29-19 ED Note-Physician [facility] Comment on above: Result Comment: Elec tronically Signed By: Alan Zhu DO\.br\Date and Time Signed: 03/29/22 16:35 EST ED Patient Education Noteon 03-29-2022 ED Patient Education Note Normal [facility] ED Patient Summaryon 023 ED Patient Summary [facility] Prescriptions/Work Noteson 0 03-29-2022 Prescriptions/Work Notes [id number]# 1.00CD:127 Normal [facility] Coding Summary.on 03-15-2022 Coding Summary. Normal [facility] Consent for Treatmenton 03-03 Consent for Treatment [id number] .00CD:127 Normal [facility] Discharge Instructionson Discharge Instructions [id number]# 1.00CD:127 [facility] ED Clinical Summaryon 2022 ED Clinical Summary Normal [facility] ED Note-Physicianon 03-14-19 ED Note-Physician [facility] Comment on above: Result Comment: Elec tronically Signed By: Yan Burnham PA-C\.br\Date and Time Signed: 03/14/22 17:23 EST\.br\Electronically Co-Signed By: Alan Zhu DO.ketty\Date and Time Co-Signed: 03/14/22 18:32 EST ED Patient Education Noteon 03-14-2022 ED Patient Education Note Normal [facility] ED Patient Summaryon 023 ED Patient Summary Normal [facility] Prescriptions/Work Noteson 0 03-14-2022 Prescriptions/Work Notes [id number]# 1.00CD:127 Normal [facility] CHEMISTRYOrdered By: SYSTEM SYSTEM on 01-29-2022 Albumin [Mass/Vol] 3.3 g/dL Normal 3.3 - 5.0 gm/dL [facility] Albumin/Globulin [Mass ratio] 1.1 {ratio} Normal 1.1 - 2.2 [facility] ALP [Catalytic activity/Vol] 74 [iU]/d Normal 21 - 98 Int._Unit/L [facility] ALT No additional P-5'-P [Catalytic activity/Vol] 24 [iU]/d Normal 6 - 46 Int._Unit/L [facility] Anion gap [Moles/Vol] 11 mmol/L Normal 6 - 16 mEq/L [facility] AST [Catalytic activity/Vol] 25 [iU]/d Normal 5 - 43 Int._Unit/L [facility] Bilirubin [Mass/Vol] 0.7 mg/dL Normal 0.0 - 1 .1 mg/dL [facility] Calcium [Mass/Vol] 8.7 mg/dL Low 8.9 - 11. 1 mg/dL [facility] Chloride [Moles/Vol] 104 mmol/L Normal 101 - 1 11 mmol/L [facility] CO2 [Moles/Vol] 26 mmol/L Normal 21 - 31 mmol/L [facility] Creatinine [Mass/Vol] 0.5 mg/dL Normal 0.5 - 1.3 mg/dL [facility] Ethanol [Mass/Vol] mg/dL Normal <=7mg/dL [facility] GFR/1.73 sq M.predicted among blacks MDRD (S/P/Bld) [Vol rate/Area] mL/min/1.73 m2 Normal >=59mL/min/ 1.73 m2 [facility] Chem S GFR/1.73 sq M.predicted among non-blacks MDRD (S/P/Bld) [Vol rate/Area] mL/min/1.73 m2 Normal >=59mL/min/ 1.73 m2 [facility] Chem S Globulin (S) [Mass/Vol] 3.1 g/dL Normal 1.4 - 4.0 gm/dL [facility] Glucose [Mass/Vol] 103 mg/dL Normal 55 - 199 mg/dL [facility] Potassium [Moles/Vol] 4.0 mmol/L Normal 3.5 - 5.3 mmol/L [facility] Protein [Mass/Vol] 6.4 g/dL Normal 6.0 - 7.8 gm/dL [facility] Sodium [Moles/Vol] 137 mmol/L Normal 135 - 145 mmol/L [facility] Urea nitrogen [Mass/Vol] 11 mg/dL Normal 5 - 21 mg/dL [facility] Urea nitrogen/Creatinine [Mass ratio] 22 mg/mg High 10 - 20 [facility] Amphetamines Screen method >1000 ng/mL Ql (U) Negative (01/29/22 4:58 AM) Normal Negative [facility] Barbiturates Screen Ql (U) Negative (01/29/22 4:58 AM) Normal Negative [facility] Benzodiazepines Ql (U) Negative (01/29/22 4:58 AM) Normal Negative [facility] Cocaine Ql (U) Negative (01/29/22 4:58 AM) Normal Negative [facility] Opiates Screen Ql (U) Negative (01/29/22 4:58 AM) Normal Negative [facility] Phencyclidine Screen method >25 ng/mL Ql (U) Negative (01/29/22 4:58 AM) Normal Negative [facility] Tetrahydrocannabinol Screen method >50 ng/mL Ql (U) Negative (01/29/22 4:58 AM) Normal Negative [facility] HEMATOLOGYOrdered By: SYSTEM SYSTEM on 01-29-2022 Basophils/100 WBC (Bld) 0.8 % Normal 0.0 - 2.0 % [facility] Basophils/Leukocytes Auto (Bld) [Pure # fraction] 0.1 E9/L Normal 0.0 - 0.2 E9/L [facility] Eosinophils/100 WBC (Bld) 7.9 % Normal 0.0 - 8.0 % [facility] Eosinophils/Leukocytes Auto (Bld) [Pure # fraction] 0.6 E9/L High 0.0 - 0.5 E9/L [facility] Lymphocytes/100 WBC (Bld) 19.3 % Normal 14.0 - 50.0 % [facility] Lymphocytes/Leukocytes Auto (Bld) [Pure # fraction] 1.4 E9/L Normal 1.0 - 4.0 E9/L [facility] Monocytes/100 WBC (Bld) 7.4 % Normal 4.0 - 14.0 % [facility] Monocytes/Leukocytes Auto (Bld) [Pure # fraction] 0.5 E9/L Normal 0.2 - 1.0 E9/L [facility] Neutrophils/100 WBC (Bld) 64.6 % Normal 36.0 - 75.0 % [facility] Neutrophils/Leukocytes Auto (Bld) [Pure # fraction] 4.7 E9/L Normal 2.0 - 7.5 E9/L [facility] HEMATOLOGYOrdered By: Ele Conn on 01-29-2022 Erythrocyte distribution width (RBC) [Ratio] 15.1 % High 10.9 - 14.2 % [facility] Hematocrit (Bld) [Volume fraction] 33.7 % Low 34.0 - 46.0 % [facility] Hemoglobin (Bld) [Mass/Vol] 11.1 g/dL Low 12.0 - 16.0 gm/dL [facility] MCH (RBC) [Entitic mass] 26.5 pg Low 27.0 - 34.0 pg [facility] MCHC (RBC) [Mass/Vol] 33.1 g/dL Normal 31.4 - 36.0 gm/dL [facility] MCV (RBC) [Entitic vol] 80.2 fL Normal 80.0 - 100.0 fL [facility] Platelet mean volume (Bld) [Entitic vol] 7.6 fL Normal 6.4 - 10.8 fL [facility] Platelets (Bld) [#/Vol] 355.0 E9/L Normal 150. 0 - 500.0 E9/L [facility] RBC (Bld) [#/Vol] 4.2 E12/L Low 4.3 - 5.9 E12/L [facility] WBC corrected for nucl RBC Auto (Bld) [#/Vol] 7.2 E9/L Normal 4.0 - 11.0 E9/L [facility] MICRO OTHER TESTSOrdered By: Rosa Conn on 01-29-2022 Rapid COV Int NEG Ctl Pass (01/29/22 4:58 AM) Normal [facility] Man Sero Rapid COV Int POS Ctl Pass (01/29/22 4:58 AM) Normal [facility] Man Sero SARS-CoV+SARS-CoV-2 (COVID-19) Ag IA.rapid Ql (Resp) Not Detected (01/29/22 4:58 AM) Normal Not Detected [facility] Man Sero CHEMISTRYOrdered By: SYSTEM SYSTEM on 11-30-2021 Anion gap [Moles/Vol] 11 mmol/L Normal 6 - 16 mEq/L [facility] Calcium [Mass/Vol] 8.9 mg/dL Normal 8.9 - 11. 1 mg/dL [facility] Chloride [Moles/Vol] 105 mmol/L Normal 101 - 1 11 mmol/L [facility] CO2 [Moles/Vol] 23 mmol/L Normal 21 - 31 mmol/L [facility] Creatinine [Mass/Vol] 0.7 mg/dL Normal 0.5 - 1.3 mg/dL [facility] GFR/1.73 sq M.predicted among blacks MDRD (S/P/Bld) [Vol rate/Area] mL/min/1.73 m2 Normal >=59mL/min/ 1.73 m2 [facility] S GFR/1.73 sq M.predicted among non-blacks MDRD (S/P/Bld) [Vol rate/Area] mL/min/1.73 m2 Normal >=59mL/min/ 1.73 m2 [facility] Chem S Glucose [Mass/Vol] 119 mg/dL Normal 55 - 199 mg/dL [facility] Potassium [Moles/Vol] 3.5 mmol/L Normal 3.5 - 5.3 mmol/L [facility] Sodium [Moles/Vol] 135 mmol/L Normal 135 - 145 mmol/L [facility] Troponin I.cardiac [Mass/Vol] pg/mL Low 10.10 - 27.10 pg/mL [facility] Urea nitrogen [Mass/Vol] 11 mg/dL Normal 5 - 21 mg/dL [facility] Urea nitrogen/Creatinine [Mass ratio] 16 mg/mg Normal 10 - 20 [facility] COAGULATIONOrdered By: Artie Gomez on 11-30-2021 aPTT Coag (PPP) [Time] 32.9 s Normal 25.1 - 36.5 second(s) [facility] INR Coag (PPP) [Relative time] 1.1 {INR} Invalid Interpretation Code [facility] Auto Coag PT Coag (PPP) [Time] 12.1 s Normal 9.4 - 1 2.5 second(s) [facility]ag HEMATOLOGYOrdered By: SYSTEM SYSTEM on 11-30-2021 Basophils/100 WBC (Bld) 0.6 % Normal 0.0 - 2.0 % [facility] Basophils/Leukocytes Auto (Bld) [Pure # fraction] 0.0 E9/L Normal 0.0 - 0.2 E9/L [facility] Eosinophils/100 WBC (Bld) 0.7 % Normal 0.0 - 8.0 % [facility] Eosinophils/Leukocytes Auto (Bld) [Pure # fraction] 0.0 E9/L Normal 0.0 - 0.5 E9/L [facility] Lymphocytes/100 WBC (Bld) 26.7 % Normal 14.0 - 50.0 % [facility] Lymphocytes/Leukocytes Auto (Bld) [Pure # fraction] 1.8 E9/L Normal 1.0 - 4.0 E9/L [facility] Monocytes/100 WBC (Bld) 6.4 % Normal 4.0 - 14.0 % [facility] Monocytes/Leukocytes Auto (Bld) [Pure # fraction] 0.4 E9/L Normal 0.2 - 1.0 E9/L [facility] Neutrophils/100 WBC (Bld) 65.6 % Normal 36.0 - 75.0 % [facility] Neutrophils/Leukocytes Auto (Bld) [Pure # fraction] 4.3 E9/L Normal 2.0 - 7.5 E9/L [facility] HEMATOLOGYOrdered By: Marlene Howard on 11-30-2021 Erythrocyte distribution width (RBC) [Ratio] 15.8 % High 10.9 - 14.2 % [facility] Hematocrit (Bld) [Volume fraction] 36.6 % Normal 34.0 - 46.0 % [facility] Hemoglobin (Bld) [Mass/Vol] 11.8 g/dL Low 12.0 - 16.0 gm/dL [facility] MCH (RBC) [Entitic mass] 26.1 pg Low 27.0 - 34.0 pg [facility] MCHC (RBC) [Mass/Vol] 32.4 g/dL Normal 31.4 - 36.0 gm/dL [facility] MCV (RBC) [Entitic vol] 80.7 fL Normal 80.0 - 100.0 fL [facility] Platelet mean volume (Bld) [Entitic vol] 7.7 fL Normal 6.4 - 10.8 fL [facility] Platelets (Bld) [#/Vol] 395.0 E9/L Normal 150. 0 - 500.0 E9/L [facility] RBC (Bld) [#/Vol] 4.5 E12/L Normal 4.3 - 5.9 E12/L [facility] WBC corrected for nucl RBC Auto (Bld) [#/Vol] 6.6 E9/L Normal 4.0 - 11.0 E9/L [facility] SEROLOGYOrdered By: Artie martínez on 11-30-2021 Beta hCG Ql Negative (11/30/21 2:35 PM) Normal [facility] URINALYSISOrdered By: Artie henderson on 11-30-2021 Bilirubin Ql (U) Negative (11/30/21 3:20 PM) Normal Negative [facility] UA Auto SS Clarity (U) SL CLOUDY Invalid Interpretation Code [facility] Auto SS Color (U) Yellow (11/30/21 3:20 PM) Normal Yellow [facility]A Auto SS Crystals LM Ql (Urine sed) Present (11/30/21 3:20 PM) Normal [facility]A Auto SS Epithelial cells.squamous LM.HPF (Urine sed) [#/Area] 0-2 /HPF Normal 0-2/HPF [facility] UA Aut o SS Glucose Test strip (U) [Mass/Vol] Negative (11/30/21 3:20 PM) Normal Negative [facility]A Auto SS Hemoglobin Ql (U) Negative (11/30/21 3:20 PM) Normal Negative [facility]A Auto SS Ketones (U) [Mass/Vol] Trace *NA* (11/30/21 3:20 PM) Invalid Interpretation Code Negative [facility] UA Auto SS Avoca.plasma/[place]oca. RBC (Bld) [Mass ratio] 0-3 /HPF Normal 0-3/HPF [facility] A uto SS Mucus Ql (Urine sed) 1+ (11/30/21 3:20 PM) Normal [facility]A Auto SS Nitrite Ql (U) Negative (11/30/21 3:20 PM) Normal Negative [facility] Auto SS pH (U) 6.0 *NA* (11/30/21 3:20 PM) Invalid Interpretation Code 5.0 - 9.0 [facility] Auto SS Protein (U) [Mass/Vol] Negative (11/30/21 3:20 PM) Normal Negative [facility]A Auto SS Specific gravity (U) [Rel density] >=1.030 *NA* (11/30/21 3:20 PM) Invalid Interpretation Code 1.005 - 1.030 [facility] Auto SS UA Spec Desc Clean Catch (11/30/21 3:20 PM) Normal [facility]A Auto SS Urobilinogen Qn (U) 0.2932968 {Sandee'U}/dL Normal 0.0 - 1.0 EU/dL [facility]A Auto SS WBC Auto Ql (U) Trace *ABN* (11/30/21 3:20 PM) Invalid Interpretation Code Negative [facility] UA Auto SS WBC LM.HPF (Urine sed) [#/Area] 0-5 /HPF Normal 0-5/HPF [facility]A Auto SS ACETAMINOPHENon 11-19-2021 Acetaminophen [Mass/Vol] ug/mL Normal 0.0-20.0 [facility] Comment on above: Performed By: #### H EPPA, ANION, EGFR1, OSMOL, TSH3, CBCWD, SHCG, ETOHS, ASAT, ACTM, BMPX #### [facility] [address] [place] [id number] ANION GAPon 11-19-2021 Anion gap [Moles/Vol] 12.0 mmol/L Normal 8.0-16.0 [facility] Comment on above: Result Comment: ANIO N GAP = Sodium -(Chloride + CO2) Performed By: #### H EPPA, ANION, EGFR1, OSMOL, TSH3, CBCWD, SHCG, ETOHS, ASAT, ACTM, BMPX #### [facility] [employer] [facility] [address] [place] [address] BASIC METABOL PANELon 2021 Calcium [Mass/Vol] 8.6 mg/dL Normal 8.5-10.5 [facility] Comment on above: Performed By: #### H EPPA, ANION, EGFR1, OSMOL, TSH3, CBCWD, SHCG, ETOHS, ASAT, ACTM, BMPX #### [facility] [address] [place] [address] Chloride [Moles/Vol] 106 mmol/L Normal 98-111 [facility] Comment on above: Performed By: #### H EPPA, ANION, EGFR1, OSMOL, TSH3, CBCWD, SHCG, ETOHS, ASAT, ACTM, BMPX #### [facility] [employer] [facility] [address] [place] [id number] CO2 [Moles/Vol] 21 mmol/L Low 23-33 [facility] Comment on above: Performed By: #### H EPPA, ANION, EGFR1, OSMOL, TSH3, CBCWD, SHCG, ETOHS, ASAT, ACTM, BMPX #### [facility] [employer] [facility] [address] [place] [address] Creatinine [Mass/Vol] 0.6 mg/dL Normal 0.4-1.2 [facility] Comment on above: Performed By: #### H EPPA, ANION, EGFR1, OSMOL, TSH3, CBCWD, SHCG, ETOHS, ASAT, ACTM, BMPX #### [facility] [employer] [facility] [facility] [address] [place] [address] Glucose [Mass/Vol] 82 mg/dL Normal 70-108 [facility] Comment on above: Performed By: #### H EPPA, ANION, EGFR1, OSMOL, TSH3, CBCWD, SHCG, ETOHS, ASAT, ACTM, BMPX #### [address] [address] POTASSIUM WITH REFLEX MG 3.9 meq/L Normal 3.5-5.2 [facility] Comment on above: Result Comment: Low level specimen hemolysis is present as indicated by the interference level index on the Malik analyzer. The reported K+ level may be falsely increased. If clinically warranted, recollection of the specimen is suggested. Performed By: #### H EPPA, ANION, EGFR1, OSMOL, TSH3, CBCWD, SHCG, ETOHS, ASAT, ACTM, BMPX #### [address] [address] Sodium [Moles/Vol] 139 mmol/L Normal 135-145 [facility] Comment on above: Performed By: #### H EPPA, ANION, EGFR1, OSMOL, TSH3, CBCWD, SHCG, ETOHS, ASAT, ACTM, BMPX #### [address] [address] Urea nitrogen [Mass/Vol] 7 mg/dL Normal 7-22 [facility] Comment on above: Performed By: #### H EPPA, ANION, EGFR1, OSMOL, TSH3, CBCWD, SHCG, ETOHS, ASAT, ACTM, BMPX #### [address] [address] CALCULATED OSMOLALITYon 11-01 Osmolality [Osmolality] 274.6 mosm/kg Low 275.0-300 .0 [facility] Comment on above: Performed By: #### H EPPA, ANION, EGFR1, OSMOL, TSH3, CBCWD, SHCG, ETOHS, ASAT, ACTM, BMPX #### [address] [address] CBC WITH DIFFERENTIALon 11-01 ABS BASOPHILS 0.0 thou/mm3 Normal 0.0-0.1 [facility] Comment on above: Performed By: #### H EPPA, ANION, EGFR1, OSMOL, TSH3, CBCWD, SHCG, ETOHS, ASAT, ACTM, BMPX #### [place] [address] ABS EOSINOPHILS 0.1 thou/mm3 Normal 0.0-0.4 [facility] Comment on above: Performed By: #### H EPPA, ANION, EGFR1, OSMOL, TSH3, CBCWD, SHCG, ETOHS, ASAT, ACTM, BMPX #### [place] [address] ABS IMMATURE GRANS (IG) 0.03 thou/mm3 Normal 0.00-0.07 [facility] Comment on above: Performed By: #### H EPPA, ANION, EGFR1, OSMOL, TSH3, CBCWD, SHCG, ETOHS, ASAT, ACTM, BMPX #### [place] [address] ABS LYMPHOCYTES 2.4 thou/mm3 Normal 1.0-4.8 [facility] Comment on above: Performed By: #### H EPPA, ANION, EGFR1, OSMOL, TSH3, CBCWD, SHCG, ETOHS, ASAT, ACTM, BMPX #### [place] [address] ABS MONOCYTES 0.5 thou/mm3 Normal 0.4-1.3 [facility] Comment on above: Performed By: #### H EPPA, ANION, EGFR1, OSMOL, TSH3, CBCWD, SHCG, ETOHS, ASAT, ACTM, BMPX #### [place] [address] ABS NEUTROPHILS 4.0 thou/mm3 Normal 1.8-7.7 [facility] Comment on above: Performed By: #### H EPPA, ANION, EGFR1, OSMOL, TSH3, CBCWD, SHCG, ETOHS, ASAT, ACTM, BMPX #### [place] [address] Basophils/100 WBC (Bld) 0.4 % Normal [facility] Comment on above: Performed By: #### H EPPA, ANION, EGFR1, OSMOL, TSH3, CBCWD, SHCG, ETOHS, ASAT, ACTM, BMPX #### [address] [address] Eosinophils/100 WBC (Bld) 1.3 % Normal [facility] Comment on above: Performed By: #### H EPPA, ANION, EGFR1, OSMOL, TSH3, CBCWD, SHCG, ETOHS, ASAT, ACTM, BMPX #### [address] [address] Erythrocyte distribution width (RBC) [Ratio] 14.2 % Normal 11.5-14.5 [facility] Comment on above: Performed By: #### H EPPA, ANION, EGFR1, OSMOL, TSH3, CBCWD, SHCG, ETOHS, ASAT, ACTM, BMPX #### [address] [address] Hematocrit (Bld) [Volume fraction] 38.9 % Normal 37.0-47.0 [facility] Comment on above: Performed By: #### H EPPA, ANION, EGFR1, OSMOL, TSH3, CBCWD, SHCG, ETOHS, ASAT, ACTM, BMPX #### [address] [address] Hemoglobin (Bld) [Mass/Vol] 12.1 g/dL Normal 12.0-16.0 [facility] Comment on above: Performed By: #### H EPPA, ANION, EGFR1, OSMOL, TSH3, CBCWD, SHCG, ETOHS, ASAT, ACTM, BMPX #### [address] [address] IMMATURE GRANS (IG) 0.4 % Normal [facility] Comment on above: Performed By: #### H EPPA, ANION, EGFR1, OSMOL, TSH3, CBCWD, SHCG, ETOHS, ASAT, ACTM, BMPX #### [address] [address] Lymphocytes/100 WBC (Bld) 33.6 % Normal [facility] Comment on above: Performed By: #### H EPPA, ANION, EGFR1, OSMOL, TSH3, CBCWD, SHCG, ETOHS, ASAT, ACTM, BMPX #### [address] [address] MCH (RBC) [Entitic mass] 27.1 pg Normal 26.0-33.0 [facility] Comment on above: Performed By: #### H EPPA, ANION, EGFR1, OSMOL, TSH3, CBCWD, SHCG, ETOHS, ASAT, ACTM, BMPX #### [address] [address] MCHC (RBC) [Mass/Vol] 31.1 g/dL Low 32.2-35.5 [facility] Comment on above: Performed By: #### H EPPA, ANION, EGFR1, OSMOL, TSH3, CBCWD, SHCG, ETOHS, ASAT, ACTM, BMPX #### [address] [address] MCV (RBC) [Entitic vol] 87.0 fL Normal 81.0-99.0 [facility] Comment on above: Performed By: #### H EPPA, ANION, EGFR1, OSMOL, TSH3, CBCWD, SHCG, ETOHS, ASAT, ACTM, BMPX #### [address] [address] Monocytes/100 WBC (Bld) 6.8 % Normal [facility] Comment on above: Performed By: #### H EPPA, ANION, EGFR1, OSMOL, TSH3, CBCWD, SHCG, ETOHS, ASAT, ACTM, BMPX #### [address] [address] Neutrophils/100 WBC (Bld) 57.5 % Normal [facility] Comment on above: Performed By: #### H EPPA, ANION, EGFR1, OSMOL, TSH3, CBCWD, SHCG, ETOHS, ASAT, ACTM, BMPX #### [address] [address] NRBC 0 /100 wbc Normal [facility] Comment on above: Performed By: #### H EPPA, ANION, EGFR1, OSMOL, TSH3, CBCWD, SHCG, ETOHS, ASAT, ACTM, BMPX #### [place] [address] PLATELET 390 thou/mm3 Normal 130-400 [facility] Comment on above: Performed By: #### H EPPA, ANION, EGFR1, OSMOL, TSH3, CBCWD, SHCG, ETOHS, ASAT, ACTM, BMPX #### [place] [address] Platelet mean volume (Bld) [Entitic vol] 9.8 fL Normal 9.4-12.4 [facility] Comment on above: Performed By: #### H EPPA, ANION, EGFR1, OSMOL, TSH3, CBCWD, SHCG, ETOHS, ASAT, ACTM, BMPX #### [place] [address] RBC 4.47 mill/mm3 Normal 4.20-5.40 [facility] Comment on above: Performed By: #### H EPPA, ANION, EGFR1, OSMOL, TSH3, CBCWD, SHCG, ETOHS, ASAT, ACTM, BMPX #### [place] [address] RDW-SD 44.9 fL Normal 35.0-45.0 [facility] Comment on above: Performed By: #### H EPPA, ANION, EGFR1, OSMOL, TSH3, CBCWD, SHCG, ETOHS, ASAT, ACTM, BMPX #### [place] [address] WBC 7.0 thou/mm3 Normal 4.8-10.8 [facility] Comment on above: Performed By: #### H EPPA, ANION, EGFR1, OSMOL, TSH3, CBCWD, SHCG, ETOHS, ASAT, ACTM, BMPX #### [place] [address] DRUG ABUSE SCREENon 11-20-19 22 AMPHETAMINE/METHAMPH Negative Normal NEGATIVE [facility] Comment on above: Performed By: #### H EPPA, ANION, EGFR1, OSMOL, TSH3, CBCWD, SHCG, ETOHS, ASAT, ACTM, BMPX #### [place] [address] BARBITURATE Negative Normal NEGATIVE [facility] Comment on above: Performed By: #### H EPPA, ANION, EGFR1, OSMOL, TSH3, CBCWD, SHCG, ETOHS, ASAT, ACTM, BMPX #### [place] [address] Benzodiazepines Ql (U) Negative Normal NEGATIVE [facility] Comment on above: Performed By: #### H EPPA, ANION, EGFR1, OSMOL, TSH3, CBCWD, SHCG, ETOHS, ASAT, ACTM, BMPX #### [place] [address] Cannabinoids Screen Ql (U) Negative Normal NEGATIVE [facility] Comment on above: Performed By: #### H EPPA, ANION, EGFR1, OSMOL, TSH3, CBCWD, SHCG, ETOHS, ASAT, ACTM, BMPX #### [place] [address] COCAINE METABOLITE Negative Normal NEGATIVE [facility] Comment on above: Performed By: #### H EPPA, ANION, EGFR1, OSMOL, TSH3, CBCWD, SHCG, ETOHS, ASAT, ACTM, BMPX #### [address] [address] Opiates Ql (U) Negative Normal NEGATIVE [facility] Comment on above: Performed By: #### H EPPA, ANION, EGFR1, OSMOL, TSH3, CBCWD, SHCG, ETOHS, ASAT, ACTM, BMPX #### [place] [address] OXYCODONE Negative Normal NEGATIVE [facility] Comment on above: Performed By: #### H EPPA, ANION, EGFR1, OSMOL, TSH3, CBCWD, SHCG, ETOHS, ASAT, ACTM, BMPX #### [place] [address] Phencyclidine Ql (U) Negative Normal NEGATIVE [facility] Comment on above: Result Comment: A N egative result for a drug abuse screen test indicates that the drug concentration is below the following cutoffs: Amphetamine/Methamphetamine 1000 ng/ml Barbiturate 200 ng/ml Benzodiazapine 200 ng/ml Cannabinoids 50 ng/ml Cocaine Metabolite 300 ng/ml Opiates 300 ng/ml Oxycodone 100 ng/ml Phencyclidine 25 ng/ml A Positive result for a drug abuse screen test should be considered presumptive positive until/unless confirmed by another method. (Additional request) Quantitative values from a reference laboratory are available upon additional request. These results are for medical use only. Performed By: #### H EPPA, ANION, EGFR1, OSMOL, TSH3, CBCWD, SHCG, ETOHS, ASAT, ACTM, BMPX #### [email or web address] [address] [place] [address] ETHYL ALCOHOL BLOODon 2021 ETHYL ALCOHOL BLOOD < 0.01 Normal 0.00 [facility] Comment on above: Performed By: #### H EPPA, ANION, EGFR1, OSMOL, TSH3, CBCWD, SHCG, ETOHS, ASAT, ACTM, BMPX #### [email or web address] [address] [place] [address] GFR, ESTIMATEDon 11-19-2021 GFR/1.73 sq M.predicted MDRD (S/P/Bld) [Vol rate/Area] mL/min/{1.73_m2} Normal [facility] Comment on above: Result Comment: Stag abrahan Description GFR, ml/min/1.73 m2 - At increased risk > or = 60 (with chronic kidney disease risk factors) 1 Normal or increased GFR > or = 90 2 Mildly or decreased GFR 60 - 89 3 Moderately decreased GFR 30 - 59 4 Severely decreased GFR 15 - 29 5 Kidney failure <15 (or dialysis) Estimated GFR calculated using abbreviated MDRD formula as recommended by National Kidney Foundation. Calculation based upon serum creatinine and adjusted for age, gender & race. Jazz. Internal Med., Vol. 139 (2) pg 137-147. Performed By: #### H EPPA, ANION, EGFR1, OSMOL, TSH3, CBCWD, SHCG, ETOHS, ASAT, ACTM, BMPX #### [facility] [address] [place] [address] HEPATIC FUNCTION PANELon Albumin [Mass/Vol] 4.0 g/dL Normal 3.5-5.1 [facility] Comment on above: Performed By: #### H EPPA, ANION, EGFR1, OSMOL, TSH3, CBCWD, SHCG, ETOHS, ASAT, ACTM, BMPX #### [address] [address] ALP [Catalytic activity/Vol] 80 U/L Normal 38-126 [facility] Comment on above: Performed By: #### H EPPA, ANION, EGFR1, OSMOL, TSH3, CBCWD, SHCG, ETOHS, ASAT, ACTM, BMPX #### [address] [address] ALT [Catalytic activity/Vol] 12 U/L Normal 11-66 [facility] Comment on above: Performed By: #### H EPPA, ANION, EGFR1, OSMOL, TSH3, CBCWD, SHCG, ETOHS, ASAT, ACTM, BMPX #### [address] [address] AST [Catalytic activity/Vol] 15 U/L Normal 5-40 [facility] Comment on above: Performed By: #### H EPPA, ANION, EGFR1, OSMOL, TSH3, CBCWD, SHCG, ETOHS, ASAT, ACTM, BMPX #### [address] [address] Bilirubin [Mass/Vol] 0.3 mg/dL Normal 0.3-1.2 [facility] Comment on above: Performed By: #### H EPPA, ANION, EGFR1, OSMOL, TSH3, CBCWD, SHCG, ETOHS, ASAT, ACTM, BMPX #### [address] [address] Bilirubin.indirect [Mass/Vol] mg/dL Normal 0.0-0.3 [facility] Comment on above: Performed By: #### H EPPA, ANION, EGFR1, OSMOL, TSH3, CBCWD, SHCG, ETOHS, ASAT, ACTM, BMPX #### [address] [address] Protein [Mass/Vol] 6.5 g/dL Normal 6.1-8.0 [facility] Comment on above: Performed By: #### H EPPA, ANION, EGFR1, OSMOL, TSH3, CBCWD, SHCG, ETOHS, ASAT, ACTM, BMPX #### [address] [address] TEST SERUMon 11-19 TEST SERUM Negative Normal NEGATIVE [facility] Comment on above: Performed By: #### H EPPA, ANION, EGFR1, OSMOL, TSH3, CBCWD, SHCG, ETOHS, ASAT, ACTM, BMPX #### [place] [address] SALICYLATEon 11-19-2021 SALICYLATE < 0.3 Low 2.0-10.0 [facility] Comment on above: Performed By: #### H EPPA, ANION, EGFR1, OSMOL, TSH3, CBCWD, SHCG, ETOHS, ASAT, ACTM, BMPX #### [place] [address] TSH THIRD GENERATIONon 11-19 TSH THIRD GENERATION 1.560 uIU/mL Normal 0.400-4.200 [facility] Comment on above: Performed By: #### H EPPA, ANION, EGFR1, OSMOL, TSH3, CBCWD, SHCG, ETOHS, ASAT, ACTM, BMPX #### [facility] [employer] [address] [address] Acetaminophen Levelon 2021 Acetaminophen Level < 5.0 0 - 20 ug/mL [facility] Comment on above: Performed at [facility] [address] [place] [address] Anion Gapon 11-18-2021 Anion gap [Moles/Vol] 12.0 mmol/L 8 - 16 meq/L [facility] Comment on above: ANION GAP = Sodium - (Chloride + CO2) Performed at [facility] [address] [place] [address] [place] [address] Basic Metabolic Panel w/ Ref luis to MGon 11-18-2021 Calcium [Mass/Vol] 8.6 mg/dL 8.5 - 10. 5 mg/dL [facility] Comment on above: Performed at [facility] [address] [place] [address] Chloride [Moles/Vol] 106 mmol/L 98 - 11 1 meq/L [facility] CO2 [Moles/Vol] 21 mmol/L Low 23 - 33 meq/L [facility] Creatinine [Mass/Vol] 0.6 mg/dL 0.4 - 1.2 mg/dL [facility] Glucose [Mass/Vol] 82 mg/dL 70 - 108 mg/dL [facility] Potassium [Moles/Vol] 3.9 mmol/L 3.5 - 5.2 meq/L [facility] Comment on above: Low level specimen h emolysis is present as indicated by the interference level index on the Malik analyzer. The reported K+ level may be falsely increased. If clinically warranted, recollection of the specimen is suggested. Sodium [Moles/Vol] 139 mmol/L 135 - 145 meq/L [facility] Urea nitrogen (BldV) [Mass/Vol] 7 mg/dL 7 - 22 mg/dL [facility] CBC with Auto Differentialon 11-18-2021 Basophils (Bld) [#/Vol] 0.0 10*3/uL [facility] Basophils/100 WBC (Bld) 0.4 % B ON [facility] Eosinophils Absolute 0.1 [facility] Eosinophils/100 WBC (Bld) 1.3 % [facility] Erythrocyte distribution width (RBC) [Ratio] 14.2 % 11.5 - 14.5 % [facility] Erythrocyte distribution width (RBC) [Ratio] 44.9 fL 35 - 45 fL [facility] Hematocrit (Bld) [Volume fraction] 38.9 % 37 - 47 % [facility] Hemoglobin (Bld) [Mass/Vol] 12.1 g/dL [facility] Immature Grans (Abs) 0.03 [facility] Immature granulocytes/100 WBC (Bld) 0.4 % [facility] Interpretation and review of laboratory results Abnormal [facility] Lymphocytes Absolute 2.4 [facility] Lymphocytes/100 WBC (Bld) 33.6 % [facility] MCH (RBC) [Entitic mass] 27.1 pg 26 - 33 pg [facility] MCHC (RBC[facility] [Mass/Vol] 31.1 g/dL Low [facility] MCV (RBC) [Entitic vol] 87.0 fL 81 - 99 fL [facility] Monocytes Absolute 0.5 [facility] Monocytes/100 WBC (Bld) 6.8 % [facility] nRBC 0 /100 wbc [facility] Comment on above: Performed at [facility] [address] [place] [address] Platelet mean volume (Bld) [Entitic vol] 9.8 fL 9.4 - 12.4 fL [facility] Platelets (Bld) [#/Vol] 390 10*3/uL [facility] RBC (Bld) [#/Vol] 4.47 10*6/uL [facility] Segmented neutrophils/100 WBC (Bld) 57.5 % [facility] Segs Absolute 4.0 [facility] WBC (Bld) [#/Vol] 7.0 10*3/uL [facility] Ethanolon 11-18-2021 ETHYL ALCOHOL, SERUM < 0.01 0.00 % [facility] Comment on above: Performed at [facility] [employer] [facility] [address] [place] [address] Glomerular Filtration Rate, Estimatedon 11-18-2021 GFR/1.73 sq M.predicted MDRD (S/P/Bld) [Vol rate/Area] ml/min/1.73 m2 [facility] Comment on above: Stage Description GF R, ml/min/1.73 m2 - At increased risk > or = 60 (with chronic kidney disease risk factors) 1 Normal or increased GFR > or = 90 2 Mildly or decreased GFR 60 - 89 3 Moderately decreased GFR 30 - 59 4 Severely decreased GFR 15 - 29 5 Kidney failure <15 (or dialysis) Estimated GFR calculated using abbreviated MDRD formula as recommended by National Kidney Foundation. Calculation based upon serum creatinine and adjusted for age, gender & race. Jazz. Internal Med., Vol. 139 (2) pg 137-147. Performed at [facility] [address] [place] [address] HCG Qualitative, Serumon Preg, Serum Negative NEGATIVE [facility] [employer] Comment on above: Performed at [facility] [employer] [facility] [address] [place] [address] Hepatic Function Panelon Albumin [Mass/Vol] 4 g/dL 3.5 - 5.1 g/dL [facility] ALP (Bld) [Catalytic activity/Vol] 80 U/L 38 - 126 U/L [facility] ALT [Catalytic activity/Vol] 12 U/L 11 - 66 U/L [facility] AST [Catalytic activity/Vol] 15 U/L 5 - 40 U/L [facility] Bilirubin [Mass/Vol] 0.3 mg/dL 0.3 - 1 .2 mg/dL [facility] Bilirubin.indirect [Mass/Vol] mg/dL 0 - 0.3 mg/dL [facility] Free PSA/Total PSA [Mass fraction] 6.5 g/dL 6.1 - 8 g/dL [facility] [employer] [facility] Comment on above: Performed at [facility] [employer] [facility] [address] [place] [address] No Panel Informationon 11-18 Interpretation and review of laboratory results Abnormal [facility] Osmolalityon 11-18-2021 Osmolality Calc 274.6 Low [facility] Comment on above: Performed at [facility] [employer] [facility] [address] [place] [address] Salicylateon 11-18-2021 Salicylate, Serum < 0.3 Low 2 - 10 mg/dL [facility] [employer] [facility] Comment on above: Performed at [facility] [employer] [facility] [address] [place] [address] TSHon 11-18-2021 TSH Qn 1.560 m[IU]/L [facility] [employer] [facility] Comment on above: Performed at [facility] [employer] [facility] [address] [place] [address] Urine Drug Screenon 11-19-19 22 AMPHETAMINE+METHAMPHETA MINE URINE SCREEN Negative NEGATIVE [facility] Barbiturate Quant, Ur Negative NEGATIVE [facility] Benzodiazepine Quant, Ur Negative NEGATIVE [facility] Cannabinoid Quant, Ur Negative NEGATIVE [facility] Cocaine Metab Quant, Ur Negative NEGATIVE B ON [facility] Opiates, Urine Negative NEGATIVE [facility] Oxycodone Negative NEGATIVE [facility] PCP Quant, Ur Negative NEGATIVE [facility] Comment on above: A Negative result for a drug abuse screen test indicates that the drug concentration is below the following cutoffs: Amphetamine/Methamphetamine 1000 ng/ml Barbiturate 200 ng/ml Benzodiazapine 200 ng/ml Cannabinoids 50 ng/ml Cocaine Metabolite 300 ng/ml Opiates 300 ng/ml Oxycodone 100 ng/ml Phencyclidine 25 ng/ml A Positive result for a drug abuse screen test should be considered presumptive positive until/unless confirmed by another method. (Additional request) Quantitative values from a reference laboratory are available upon additional request. These results are for medical use only. Performed at [facility] [address] [place] [address] MICRO OTHER TESTSOrdered By: Abraham Colin on 11-14-2021 Influenzae A Ag Negative (11/14/21 10:18 PM) Normal Negative [facility] Influenzae B Ag Negative (11/14/21 10:18 PM) Normal Negative [facility] Rapid COV Int NEG Ctl Pass (11/14/21 10:18 PM) Normal [facility] Rapid COV Int POS Ctl Pass (11/14/21 10:18 PM) Normal [facility] SARS-CoV+SARS-CoV-2 (COVID-19) Ag IA.rapid Ql (Resp) Not Detected (11/14/21 10:18 PM) Normal Not Detected [facility] CHEMISTRYOrdered By: SYSTEM SYSTEM on 11-08-2021 Amphetamines Screen method >1000 ng/mL Ql (U) Negative (11/08/21 2:52 AM) Normal Negative [facility] Barbiturates Screen Ql (U) Negative (11/08/21 2:52 AM) Normal Negative [facility] Benzodiazepines Ql (U) Negative (11/08/21 2:52 AM) Normal Negative [facility] Cocaine Ql (U) Negative (11/08/21 2:52 AM) Normal Negative [facility] Opiates Screen Ql (U) Negative (11/08/21 2:52 AM) Normal Negative [facility] Phencyclidine Screen method >25 ng/mL Ql (U) Negative (11/08/21 2:52 AM) Normal Negative [facility] Tetrahydrocannabinol Screen method >50 ng/mL Ql (U) Negative (11/08/21 2:52 AM) Normal Negative [facility] Albumin [Mass/Vol] 3.7 g/dL Normal 3.3 - 5.0 gm/dL [facility] Albumin/Globulin [Mass ratio] 1.1 {ratio} Normal 1.1 - 2.2 [facility] ALP [Catalytic activity/Vol] 58 [iU]/d Normal 21 - 98 Int._Unit/L [facility] ALT No additional P-5'-P [Catalytic activity/Vol] 18 [iU]/d Normal 6 - 46 Int._Unit/L [facility] Anion gap [Moles/Vol] 10 mmol/L Normal 6 - 16 mEq/L [facility] AST [Catalytic activity/Vol] 15 [iU]/d Normal 5 - 43 Int._Unit/L [facility] Bilirubin [Mass/Vol] 0.3 mg/dL Normal 0.0 - 1 .1 mg/dL [facility] Calcium [Mass/Vol] 8.8 mg/dL Low 8.9 - 11. 1 mg/dL [facility] Chloride [Moles/Vol] 105 mmol/L Normal 101 - 1 11 mmol/L [facility] CO2 [Moles/Vol] 25 mmol/L Normal 21 - 31 mmol/L [facility] Creatinine [Mass/Vol] 0.7 mg/dL Normal 0.5 - 1.3 mg/dL [facility] Ethanol [Mass/Vol] mg/dL Normal <=7mg/dL [facility] GFR/1.73 sq M.predicted among blacks MDRD (S/P/Bld) [Vol rate/Area] mL/min/1.73 m2 Normal >=59mL/min/ 1.73 m2 [facility] GFR/1.73 sq M.predicted among non-blacks MDRD (S/P/Bld) [Vol rate/Area] mL/min/1.73 m2 Normal >=59mL/min/ 1.73 m2 [facility] Chem S Globulin (S) [Mass/Vol] 3.4 g/dL Normal 1.4 - 4.0 gm/dL [facility] Glucose [Mass/Vol] 104 mg/dL Normal 55 - 199 mg/dL [facility] Potassium [Moles/Vol] 3.6 mmol/L Normal 3.5 - 5.3 mmol/L [facility] Protein [Mass/Vol] 7.1 g/dL Normal 6.0 - 7.8 gm/dL [facility] Sodium [Moles/Vol] 136 mmol/L Normal 135 - 145 mmol/L [facility] Urea nitrogen [Mass/Vol] 11 mg/dL Normal 5 - 21 mg/dL [facility] Urea nitrogen/Creatinine [Mass ratio] 16 mg/mg Normal 10 - 20 [facility] HEMATOLOGYOrdered By: SYSTEM SYSTEM on 11-08-2021 Basophils/100 WBC (Bld) 0.5 % Normal 0.0 - 2.0 % [facility] Basophils/Leukocytes Auto (Bld) [Pure # fraction] 0.0 E9/L Normal 0.0 - 0.2 E9/L [facility] Eosinophils/100 WBC (Bld) 1.5 % Normal 0.0 - 8.0 % [facility] Eosinophils/Leukocytes Auto (Bld) [Pure # fraction] 0.1 E9/L Normal 0.0 - 0.5 E9/L [facility] Lymphocytes/100 WBC (Bld) 43.3 % Normal 14.0 - 50.0 % [facility] Lymphocytes/Leukocytes Auto (Bld) [Pure # fraction] 2.4 E9/L Normal 1.0 - 4.0 E9/L [facility] Monocytes/100 WBC (Bld) 6.8 % Normal 4.0 - 14.0 % [facility] Monocytes/Leukocytes Auto (Bld) [Pure # fraction] 0.4 E9/L Normal 0.2 - 1.0 E9/L [facility] Neutrophils/100 WBC (Bld) 47.9 % Normal 36.0 - 75.0 % [facility] Neutrophils/Leukocytes Auto (Bld) [Pure # fraction] 2.6 E9/L Normal 2.0 - 7.5 E9/L [facility] HEMATOLOGYOrdered By: Ele Conn on 11-08-2021 Erythrocyte distribution width (RBC) [Ratio] 16.0 % High 10.9 - 14.2 % [facility] Hematocrit (Bld) [Volume fraction] 34.8 % Normal 34.0 - 46.0 % [facility] Hemoglobin (Bld) [Mass/Vol] 11.7 g/dL Low 12.0 - 16.0 gm/dL [facility] MCH (RBC) [Entitic mass] 27.2 pg Normal 27.0 - 34.0 pg [facility] MCHC (RBC) [Mass/Vol] 33.6 g/dL Normal 31.4 - 36.0 gm/dL [facility] MCV (RBC) [Entitic vol] 80.7 fL Normal 80.0 - 100.0 fL [facility] Platelet mean volume (Bld) [Entitic vol] 7.7 fL Normal 6.4 - 10.8 fL [facility] Platelets (Bld) [#/Vol] 373.0 E9/L Normal 150. 0 - 500.0 E9/L [facility] RBC (Bld) [#/Vol] 4.3 E12/L Normal 4.3 - 5.9 E12/L [facility] WBC corrected for nucl RBC Auto (Bld) [#/Vol] 5.4 E9/L Normal 4.0 - 11.0 E9/L [facility] ACETAMINOPHENon 11-07-2021 Acetaminophen [Mass/Vol] ug/mL Normal 10.0-30.0 [facility] Comment on above: Performed By: #### A CET #### [facility] [address] [place], [place] [address] Dr. Bob Avitia CBC AUTO DIFFon 11-07-2021 BASO # 0.0 103/ul Normal 0.0-0.1 [facility] Comment on above: Performed By: #### A CET, CMP, SALYC #### [facility] [address] [place] [address] Dr. Bob Avitia Basophils/100 WBC (Bld) 0.4 % Normal 0.2-2.0 [facility] Comment on above: Performed By: #### A CET, CMP, SALYC #### [facility] [address] [place] [address] Dr. Bob Avitia EO # 0.1 103/ul Normal 0.0-0.7 [facility] Comment on above: Performed By: #### A CET, CMP, SALYC #### [facility] [address] [place] [address] Dr. Bob Avitia Eosinophils/100 WBC (Bld) 1.9 % Normal 0.9-7.0 [facility] Comment on above: Performed By: #### A CET, CMP, SALYC #### [facility] [address] [place] [address] Dr. Bob Avitia Erythrocyte distribution width (RBC) [Ratio] 14.2 % Normal 11.0-15.0 [facility] Comment on above: Performed By: #### A CET, CMP, SALYC #### [facility] [address] [place] [address] Dr. Bob Avitia Hematocrit (Bld) [Volume fraction] 36.3 % Normal 36.0-48.0 [facility] Comment on above: Performed By: #### A CET, CMP, SALYC #### [facility] [address] [place] [address] Dr. Bob Avitia Hemoglobin (Bld) [Mass/Vol] 11.4 g/dL Critically low 12.0-16.0 [facility] Comment on above: Performed By: #### A CET, CMP, SALYC #### [facility] [address] [place] [address] Dr. Bob Avitia IG # 0.01 10e3/ul Normal 0.00-0.03 [facility] Comment on above: Performed By: #### A CET, CMP, SALYC #### [facility] [address] [place] [address] Dr. Bob Avitia IG % 0.2 % Normal 0.0-0.5 [facility] Comment on above: Performed By: #### A CET, CMP, SALYC #### [facility] [address] [place] [address] Dr. Bob Avitia LYMPH # 2.3 103/ul Normal 1.2-3.8 [facility] Comment on above: Performed By: #### A CET, CMP, SALYC #### [facility] [address] [place] [address] Dr. Bob Avitia Lymphocytes/100 WBC (Bld) 48.9 % Normal 20.5-60.0 [facility] Comment on above: Performed By: #### A CET, CMP, SALYC #### [facility] [address] [place] [address] Dr. Bob Avitia MANUAL DIFF REQ NO Normal [facility] Comment on above: Performed By: #### A CET, CMP, SALYC #### [facility] [address] [place] [address] Dr. Bob Avitia MCH (RBC) [Entitic mass] 26.8 pg Normal 26.7-34.0 [facility] Comment on above: Performed By: #### A CET, CMP, SALYC #### [facility] [address] [place] [address] Dr. Bob Avitia MCHC (RBC) [Mass/Vol] 31.4 g/dL Normal 29.9-35.2 [facility] Comment on above: Performed By: #### A CET, CMP, SALYC #### [facility] [address] [place] [address] Dr. Bob Avitia MCV (RBC) [Entitic vol] 85.4 fL Normal 81.0-99.0 [facility] Comment on above: Performed By: #### A CET, CMP, SALYC #### [facility] [address] [place] [address] Dr. Bob Avitia MONO # 0.4 103/ul Normal 0.3-0.8 [facility] Comment on above: Performed By: #### A CET, CMP, SALYC #### [facility] [address] [place] [address] Dr. Bob Avitia Monocytes/100 WBC (Bld) 8.4 % Normal 1.7-12.0 [facility] Comment on above: Performed By: #### A CET, CMP, SALYC #### [facility] [address] [place] [address] Dr. Bob Avitia NEUT # 1.9 103/ul Normal 1.4-6.5 [facility] Comment on above: Performed By: #### A CET, CMP, SALYC #### [facility] [address] [place] [address] Dr. Bob Avitia Neutrophils/100 WBC (Bld) 40.2 % Critically low 43.0-75.0 [facility] Comment on above: Performed By: #### A CET, CMP, SALYC #### [facility] [address] [place] [address] Dr. Bob Avitia Platelet mean volume (Bld) [Entitic vol] 9.7 fL Normal 9.5-13.5 [facility] Comment on above: Performed By: #### A CET, CMP, SALYC #### [facility] [address] [place] [address] Dr. Bob Avitia PLT 349 103/ul Normal 150-450 [facility] Comment on above: Performed By: #### A CET, CMP, SALYC #### [facility] [address] [place] [address] Dr. Bob Avitia RBC 4.25 106/ul Normal 4.20-5.40 [facility] Comment on above: Performed By: #### A CET, CMP, SALYC #### [facility] [address] [place] [address] Dr. Bob Avitia WBC 4.8 103/ul Normal 4.0-11.0 [facility] Comment on above: Performed By: #### A CET, CMP, SALYC #### [facility] [address] [place] [address] Dr. Bob Avitia DRUG SCREEN RAPID (URINE)on 11-07-2021 AMP Negative Normal NEGATIVE [facility] Comment on above: Performed By: #### C MP #### [facility] [address] [place] [address] Dr. Bob Avitia BAR Negative Normal NEGATIVE [facility] Comment on above: Performed By: #### C MP #### [facility] [address] [place] [address] Dr. Bob Avitia BUP Negative Normal NEGATIVE [facility] Comment on above: Performed By: #### C MP #### [facility] [address] [place] [address] Dr. Bob Avitia BZO Negative Normal NEGATIVE [facility] Comment on above: Performed By: #### C MP #### [facility] [address] [place] [address] Dr. Bob Avitia CYNTHIA Negative Normal NEGATIVE [facility] Comment on above: Performed By: #### C MP #### [facility] [address] [place] [address] Dr. Bob Avitia CUT-OFFS SEE BELOW Normal [facility] Comment on above: Result Comment: AMP (Amphetamine): 500ng/mL, BAR (Barbituates): 200 ng/mL, BZO (Benzodiazepines): 150 ng/mL, BUP (Buprenorphine): 10 ng/mL, CYNTHIA (Cocaine): 150 ng/mL, mAMP (Methamphetamine): 500 ng/mL, MTD (Methadone): 200 ng/mL, OPI (Opiates): 100 ng/mL, OXY (Oxycodone): 100 ng/mL, PCP (Phencyclidine): 25 ng/mL, PPX (Propoxyphene): 300 ng/mL, THC (Cannabinoids): 50 ng/mL, TCA (Trycyclic Antidepressants): 300 ng/mL Performed By: #### C MP #### [facility] [address] [place] [address] Dr. Bob Avitia DRUG CUT HEADER DRUG CLASS TEST SYSTEM CUT-OFF CONCENTRATIONS ARE FOLLOWS: Normal [facility] Comment on above: Performed By: #### C MP #### [facility] [address] [place] [address] Dr. Bob Avitia mAMP Negative Normal NEGATIVE [facility] Comment on above: Performed By: #### C MP #### [facility] [address] [address] [address] Bob Avitia MTD Negative Normal NEGATIVE [facility] Comment on above: Performed By: #### C MP #### [facility] [address] [place] [address] Dr. Bob Avitia OPI Negative Normal NEGATIVE [facility] Comment on above: Performed By: #### C MP #### [facility] [address] [place] [address] Dr. Bob Avitia OXY Negative Normal NEGATIVE [facility] Comment on above: Performed By: #### C MP #### [facility] [address] [place] [address] Dr. Bob Avitia PCP Negative Normal NEGATIVE [facility] Comment on above: Performed By: #### C MP #### [facility] [address] [place] [address] Dr. Bob Avitia PPX Negative Normal NEGATIVE [facility] Comment on above: Performed By: #### C MP #### [facility] [address] [place] [address] Dr. Bob Avitia TCA Negative Normal NEGATIVE [facility] Comment on above: Performed By: #### C MP #### [facility] [address] [place] [address] Dr. Bob Avitia THC Negative Normal NEGATIVE [facility] Comment on above: Performed By: #### C MP #### [facility] [address] [place] [address] Dr. Bob Avitia ETHANOL (BLD ALC)on 11-08-19 22 ALC NOTE NOTE: 80 mg/dl is th e legal limit for a blood alcohol level Normal [facility] Comment on above: Performed By: #### A CET, CMP, SALYC #### [facility] [address] [place] [address] Dr. Bob Avitia Ethanol [Mass/Vol] mg/dL Normal [facility] Comment on above: Performed By: #### A CET, CMP, SALYC #### [facility] [address] [place] [address] Dr. Bob Avitia URon 11-07-2021 , QUAL Negative Normal NEGATIVE [facility] Comment on above: Performed By: #### C MP #### [facility] [address] [address] [address] Bob Avitia SALICYLATEon 11-07-2021 SALICYLATE 0.5 mg/dL Normal <=19.9 [facility] Comment on above: Performed By: #### A CET, CMP, SALYC #### [facility] [address] [place], [place] [address] Dr. Bob Avitia Covid-19 PCR ([facility])on SARS-CoV-2 (COVID-19) RNA CHANTEL+probe Ql (Unsp spec) Not detected Normal NOT DETECTED [facility] Comment on above: Result Comment: When diagnostic testing is negative, the possibility of a false negative should be considered in the context of a patient's recent exposures and the presence of clinical signs and symptoms consistent with SARS-CoV-2. This test is not yet approved or cleared by the [place] FDA. When there are no FDA-approved or cleared tests available, and other criteria are met, FDA can make tests available under an emergency access mechanism called an Emergency Use Authorization (EUA). The EUA for this test is supported by the [place] of Health and Human Service's declaration that circumstances exist to justify the emergency use of in vitro diagnostics for the detection and/or diagnosis of the virus that causes COVID-19. This EUA will remain in effect for the duration of the COVID-19 declaration justifying emergency of IVDs, unless it is terminated or revoked by the FDA (after which the test may no longer be used). Performed By: #### A CET, CMP, SALYC #### [facility] [address] [place] [address] [id number] [address] Bob Avitia INFLUENZA A AND B AGon 11-01 INFLUANEGH SEE BELOW Normal [facility] Comment on above: Result Comment: Nega tive for Flu A protein angiten. Infection due to Flu A cannot be ruled out. Flu A angiten in the sample may be below the detection limit of the test. Performed By: #### A CET, CMP, SALYC #### [facility] [address] [address] [address] Bob Avitia INFLUBNEG SEE BELOW Normal [facility] Comment on above: Result Comment: Nega tive for Flu B protein antigen. Infection due to Flu B cannot be ruled out. Flu B antigen in the sample may be below the detection limit of the test. Performed By: #### A CET, CMP, SALYC #### [facility] [address] [address] [address] Bob Avitia INFLUENZA A AG Negative Normal NEGATIVE SEE COMMENT [facility] Comment on above: Performed By: #### A CET, CMP, SALYC #### [facility] [address] [address] [address] Bob Avitia INFLUENZA B AG Negative Normal NEGATIVE SEE COMMENT [facility] Comment on above: Performed By: #### A CET, CMP, SALYC #### [facility] [address] [address] [address] Bob Avitia INTERNAL CONTROLS Within Normal Limits Normal Wi thin Normal Limits [facility] Comment on above: Performed By: #### A CET, CMP, SALYC #### [facility] [address] [address] [address] Bob Avitia Albumin [Mass/volume] in Ser um or PlasmaOrdered By: Miguelangel Zhou on 10-08-2021 Albumin [Mass/Vol] 3.1 g/dL 3.2-5.5 [facility] Cholesterol [Mass/volume] in Serum or PlasmaOrdered By: Miguelangel Zhou on 10-08-2021 Cholesterol [Mass/Vol] 180 mg/dL 140-200 [facility] Comment on above: Chol less than 200 m g/dl low risk Chol 201-239 mg/dl borderline risk Chol 240 mg/dl and greater high risk Cholesterol in LDL Calc [Mas s/Vol]Ordered By: Miguelangel Zhou on 10-08-2021 Cholesterol in LDL [Mass/Vol] 129 mg/dL 0-100 [facility] Comment on above: LDL ATP III CLASSIFI CATION LDL less than 100 mg/dL Optimal LDL 100-129 mg/dL Near or above optimal LDL 130-159 mg/dL Borderline high LDL 160-189 mg/dL High LDL greater than 189 mg/dL Very high Cholesterol in VLDL Calc [Ma ss/Vol]Ordered By: Miguelangel Zhou on 10-08-2021 Cholesterol in VLDL [Mass/Vol] 15 mg/dL [facility] Direct bilirubin measurement Ordered By: Miguelangel Zhou on 10-08-2021 Bilirubin.direct [Mass/Vol] mg/dL 0.0-0.4 [facility] Globulin Calc (S) [Mass/Vol] Ordered By: Miguelangel Zhou on 10-08-2021 Globulin (S) [Mass/Vol] 2.9 g/dL F [facility] No Panel InformationOrdered By: Miguelangel Zhou on 10-08-2021 25-Hydroxy Vitamin D Total 29.3 ng/mL 30-100 [facility] Comment on above: VITAMIN D STATUS 25( [place])VITAMIN D RANGE (ng/mL) Deficient <20 Insufficient 20 to <30 Sufficient 30 to 100 Reference: Tiago MF,Sarah NC, Neha FARIAS, et al. Evaluation,treatment, and prevention of vitamin D deficiency; an Endocrine Society clinical practice guideline. JCEM. 2010; 96(7):1911-30. Protein [Mass/volume] in Ser um or PlasmaOrdered By: Miguelangel Zhou on 10-08-2021 Protein [Mass/Vol] 6.0 g/dL 6.1-7.9 [facility] Serum or plasma alanine moura otransferase measurement without P-5'-P (enzymatic activiOrdered By: Miguelangel Zhou on 10-08-2021 ALT No additional P-5'-P [Catalytic activity/Vol] 19 U/L 10-60 [facility] Serum or plasma albumin/glob ulin mass ratioOrdered By: Miguelangel Zhou on 10-08-2021 Albumin/Globulin [Mass ratio] 1.1 {ratio} [facility] Serum or plasma alkaline geovanny sphatase measurement (enzymatic activity/volume)Ordered By: Miguelangel Zhou on 10-08-2021 ALP [Catalytic activity/Vol] 61 U/L 32-92 [facility] Serum or plasma aspartate am inotransferase measurement (enzymatic activity/volume)Ordered By: Miguelangel Zhou on 10-08-2021 AST [Catalytic activity/Vol] 17 U/L 10-42 [facility] Serum or plasma high density lipoprotein (HDL) cholesterol measurementOrdered By: Miguelangel Zhou on 10-08-2021 Cholesterol in HDL [Mass/Vol] 35 mg/dL 35-85 [facility] Comment on above: HDL CHOL ATP-III CLA SSIFICATION Cardiovascular Risk HDL > or equal to 60 mg/dL LOW HDL < 40 mg/dL HIGH Serum or plasma non-glucuron idated bilirubin measurement (mass/volume)Ordered By: Miguelangel Zhou on 10-08-2021 Bilirubin.indirect [Mass/Vol] TNP [facility] Comment on above: Test not performed Serum or plasma total biliru bin measurement (mass/volume)Ordered By: Miguelangel Zhou on 10-08-2021 Bilirubin [Mass/Vol] 0.7 mg/dL 0.3-1.2 [facility] Serum or plasma total choles terol/high density lipoprotein (HDL) cholesterol mass ratOrdered By: Miguelangel Zhou on 10-08-2021 Cholesterol.total/Audelia sterol in HDL [Mass ratio] 5.1 {ratio} <5.0 [facility] TSH DL <= 0.005 mIU/L QnOrde red By: Miguelangel Zhou on 10-08-2021 TSH Qn 1.45 m[IU]/L 0.45-5.33 [facility] Triglyceride [Mass/volume] i n Serum or PlasmaOrdered By: Miguelangel Zhou on 10-08-2021 Triglyceride [Mass/Vol] 79 mg/dL 35-149 F [facility] Comment on above: TRIG ATP III CLASSIF ICATION TRIG less than 150 mg/dL Normal TRIG 150-199 mg/dL Borderline high TRIG 200-500 mg/dL High TRIG greater than 500 mg/dL Very high Standard traceable to the Center for Disease Conrtrol and Prevention (CDC) test method. ACETAMINOPHENon 10-07-2021 Acetaminophen [Mass/Vol] ug/mL Critically low 10.0-30.0 [facility] Comment on above: Performed By: #### A CET, CMP, SALYC #### [facility] [address] [place] [address] Dr. Bob Avitia CBC AUTO DIFFon 10-07-2021 BASO # 0.0 103/ul Normal 0.0-0.1 [facility] Comment on above: Performed By: #### A CET, CMP, SALYC #### [facility] [address] [place] [address] Dr. Bob Avitia Basophils/100 WBC (Bld) 0.4 % Normal 0.2-2.0 [facility] Comment on above: Performed By: #### A CET, CMP, SALYC #### [facility] [address] [place] [address] Dr. Bob Avitia EO # 0.0 103/ul Normal 0.0-0.7 [facility] Comment on above: Performed By: #### A CET, CMP, SALYC #### [facility] [address] [place] [address] Dr. Bob Avitia Eosinophils/100 WBC (Bld) 0.6 % Critically low 0.9-7.0 [facility] Comment on above: Performed By: #### A CET, CMP, SALYC #### [facility] [address] [place] [address] Dr. Bob Avitia Erythrocyte distribution width (RBC) [Ratio] 14.0 % Normal 11.0-15.0 [facility] Comment on above: Performed By: #### A CET, CMP, SALYC #### [facility] [address] [place] [address] Dr. Bob Avitia Hematocrit (Bld) [Volume fraction] 36.6 % Normal 36.0-48.0 [facility] Comment on above: Performed By: #### A CET, CMP, SALYC #### [facility] [address] [place] [address] Dr. Bob Avitia Hemoglobin (Bld) [Mass/Vol] 11.6 g/dL Critically low 12.0-16.0 [facility] Comment on above: Performed By: #### A CET, CMP, SALYC #### [facility] [address] [place] [address] Dr. Bob Avitia IG # 0.02 10e3/ul Normal 0.00-0.03 [facility] Comment on above: Performed By: #### A CET, CMP, SALYC #### [facility] [address] [place] [address] Dr. Bob Avitia IG % 0.3 % Normal 0.0-0.5 [facility] Comment on above: Performed By: #### A CET, CMP, SALYC #### [facility] [address] [place] [address] Dr. Bob Avitia LYMPH # 1.8 103/ul Normal 1.2-3.8 [facility] Comment on above: Performed By: #### A CET, CMP, SALYC #### [facility] [address] [place] [address] Dr. Bob Avitia Lymphocytes/100 WBC (Bld) 25.2 % Normal 20.5-60.0 [facility] Comment on above: Performed By: #### A CET, CMP, SALYC #### [facility] [address] [place] [address] Dr. Bob Avitia MANUAL DIFF REQ NO Normal [facility] Comment on above: Performed By: #### A CET, CMP, SALYC #### [facility] [address] [place] [address] Dr. Bob Avitia MCH (RBC) [Entitic mass] 26.2 pg Critically low 26.7-34.0 [facility] Comment on above: Performed By: #### A CET, CMP, SALYC #### [facility] [address] [place] [address] Dr. Bob Avitia MCHC (RBC) [Mass/Vol] 31.7 g/dL Normal 29.9-35.2 [facility] Comment on above: Performed By: #### A CET, CMP, SALYC #### [facility] [address] [place] [address] Dr. Bob Avitia MCV (RBC) [Entitic vol] 82.8 fL Normal 81.0-99.0 [facility] Comment on above: Performed By: #### A CET, CMP, SALYC #### [facility] [address] [place] [address] Dr. Bbo Avitia MONO # 0.4 103/ul Normal 0.3-0.8 [facility] Comment on above: Performed By: #### A CET, CMP, SALYC #### [facility] [address] [place] [address] Dr. Bob Avitia Monocytes/100 WBC (Bld) 6.2 % Normal 1.7-12.0 [facility] Comment on above: Performed By: #### A CET, CMP, SALYC #### [facility] [address] [place] [address] Dr. Bob Avitia NEUT # 4.8 103/ul Normal 1.4-6.5 [facility] Comment on above: Performed By: #### A CET, CMP, SALYC #### [facility] [address] [place] [address] Dr. Bob Avitia Neutrophils/100 WBC (Bld) 67.3 % Normal 43.0-75.0 [facility] Comment on above: Performed By: #### A CET, CMP, SALYC #### [facility] [address] [place] [address] Dr. Bob Avitia Platelet mean volume (Bld) [Entitic vol] 9.4 fL Critically low 9.5-13.5 [facility] Comment on above: Performed By: #### A CET, CMP, SALYC #### [facility] [address] [place] [address] Dr. Bob Avitia PLT 433 103/ul Normal 150-450 [facility] Comment on above: Performed By: #### A CET, CMP, SALYC #### [facility] [address] [place] [address] Dr. Bob Avitia RBC 4.42 106/ul Normal 4.20-5.40 [facility] Comment on above: Performed By: #### A CET, CMP, SALYC #### [facility] [address] [place] [address] Dr. Bob Avitia WBC 7.1 103/ul Normal 4.0-11.0 [facility] Comment on above: Performed By: #### A CET, CMP, SALYC #### [facility] [address] [address] [address] Bob Avitia CHEMISTRYOrdered By: SYSTEM SYSTEM on 10-07-2021 Albumin [Mass/Vol] 3.8 g/dL Normal 3.3 - 5.0 gm/dL [facility] Albumin/Globulin [Mass ratio] 1.1 {ratio} Normal 1.1 - 2.2 [facility] ALP [Catalytic activity/Vol] 68 [iU]/d Normal 21 - 98 Int._Unit/L [facility] ALT No additional P-5'-P [Catalytic activity/Vol] 16 [iU]/d Normal 6 - 46 Int._Unit/L [facility] Anion gap [Moles/Vol] 11 mmol/L Normal 6 - 16 mEq/L [facility] AST [Catalytic activity/Vol] 20 [iU]/d Normal 5 - 43 Int._Unit/L [facility] Bilirubin [Mass/Vol] 0.5 mg/dL Normal 0.0 - 1 .1 mg/dL [facility] Calcium [Mass/Vol] 9.0 mg/dL Normal 8.9 - 11. 1 mg/dL [facility] Chloride [Moles/Vol] 106 mmol/L Normal 101 - 1 11 mmol/L [facility] CO2 [Moles/Vol] 22 mmol/L Normal 21 - 31 mmol/L [facility] Creatinine [Mass/Vol] 0.8 mg/dL Normal 0.5 - 1.3 mg/dL [facility] Ethanol [Mass/Vol] mg/dL Normal <=7mg/dL [facility] GFR/1.73 sq M.predicted among blacks MDRD (S/P/Bld) [Vol rate/Area] mL/min/1.73 m2 Normal >=59mL/min/ 1.73 m2 [facility] Chem S GFR/1.73 sq M.predicted among non-blacks MDRD (S/P/Bld) [Vol rate/Area] mL/min/1.73 m2 Normal >=59mL/min/ 1.73 m2 [facility] S Globulin (S) [Mass/Vol] 3.5 g/dL Normal 1.4 - 4.0 gm/dL [facility] Glucose [Mass/Vol] 118 mg/dL Normal 55 - 199 mg/dL [facility] Potassium [Moles/Vol] 3.0 mmol/L Low 3.5 - 5.3 mmol/L [facility] Protein [Mass/Vol] 7.3 g/dL Normal 6.0 - 7.8 gm/dL [facility] Sodium [Moles/Vol] 136 mmol/L Normal 135 - 145 mmol/L [facility] Urea nitrogen [Mass/Vol] 6 mg/dL Normal 5 - 21 mg/dL [facility] Urea nitrogen/Creatinine [Mass ratio] 8 mg/mg Low 10 - 20 [facility] Amphetamines Screen method >1000 ng/mL Ql (U) Negative (10/07/21 1:55 PM) Normal Negative [facility] Barbiturates Screen Ql (U) Negative (10/07/21 1:55 PM) Normal Negative [facility] Benzodiazepines Ql (U) Negative (10/07/21 1:55 PM) Normal Negative [facility] Cocaine Ql (U) Negative (10/07/21 1:55 PM) Normal Negative [facility] Opiates Screen Ql (U) Negative (10/07/21 1:55 PM) Normal Negative [facility] Phencyclidine Screen method >25 ng/mL Ql (U) Negative (10/07/21 1:55 PM) Normal Negative [facility] Tetrahydrocannabinol Screen method >50 ng/mL Ql (U) Negative (10/07/21 1:55 PM) Normal Negative [facility] Acetaminophen [Mass/Vol] microgram/mL Low 15 - 30 mcg/mL [facility] Albumin [Mass/Vol] 4.0 g/dL Normal 3.3 - 5.0 gm/dL [facility] Albumin/Globulin [Mass ratio] 1.1 {ratio} Normal 1.1 - 2.2 [facility] ALP [Catalytic activity/Vol] 76 [iU]/d Normal 21 - 98 Int._Unit/L [facility] ALT No additional P-5'-P [Catalytic activity/Vol] 16 [iU]/d Normal 6 - 46 Int._Unit/L [facility] Anion gap [Moles/Vol] 11 mmol/L Normal 6 - 16 mEq/L [facility] AST [Catalytic activity/Vol] 16 [iU]/d Normal 5 - 43 Int._Unit/L [facility] Bilirubin [Mass/Vol] 0.4 mg/dL Normal 0.0 - 1 .1 mg/dL [facility] Calcium [Mass/Vol] 9.1 mg/dL Normal 8.9 - 11. 1 mg/dL [facility] Chloride [Moles/Vol] 104 mmol/L Normal 101 - 1 11 mmol/L [facility] CO2 [Moles/Vol] 23 mmol/L Normal 21 - 31 mmol/L [facility] Creatinine [Mass/Vol] 0.7 mg/dL Normal 0.5 - 1.3 mg/dL [facility] Ethanol [Mass/Vol] mg/dL Normal <=7mg/dL [facility] R emisol GFR/1.73 sq M.predicted among blacks MDRD (S/P/Bld) [Vol rate/Area] mL/min/1.73 m2 Normal >=59mL/min/ 1.73 m2 [facility] Chem S GFR/1.73 sq M.predicted among non-blacks MDRD (S/P/Bld) [Vol rate/Area] mL/min/1.73 m2 Normal >=59mL/min/ 1.73 m2 [facility] Chem S Globulin (S) [Mass/Vol] 3.6 g/dL Normal 1.4 - 4.0 gm/dL [facility] Glucose [Mass/Vol] 118 mg/dL Normal 55 - 199 mg/dL [facility] Potassium [Moles/Vol] 3.3 mmol/L Low 3.5 - 5.3 mmol/L [facility] Protein [Mass/Vol] 7.6 g/dL Normal 6.0 - 7.8 gm/dL [facility] Salicylates [Mass/Vol] mg/dL Low 6 - 2 9 mg/dL [facility] Sodium [Moles/Vol] 135 mmol/L Normal 135 - 145 mmol/L [facility] Urea nitrogen [Mass/Vol] 9 mg/dL Normal 5 - 21 mg/dL [facility] Urea nitrogen/Creatinine [Mass ratio] 13 mg/mg Normal 10 - 20 [facility] Remisol DRUG SCREEN RAPID (URINE)on 10-07-2021 AMP Negative Normal NEGATIVE [facility] Comment on above: Performed By: #### A CET, CMP, SALYC #### [facility] [address] [place] [address] Dr. Bob Avitia BAR Negative Normal NEGATIVE [facility] Comment on above: Performed By: #### A CET, CMP, SALYC #### [facility] [address] [address] [address] Bob Avitia BUP Negative Normal NEGATIVE [facility] Comment on above: Performed By: #### A CET, CMP, SALYC #### [facility] [address] [place] [address] Dr. Bob Avitia BZO Negative Normal NEGATIVE [facility] Comment on above: Performed By: #### A CET, CMP, SALYC #### [facility] [address] [place] [address] Dr. Bob Avitia CYNTHIA Negative Normal NEGATIVE [facility] Comment on above: Performed By: #### A CET, CMP, SALYC #### [facility] [address] [place] [address] Dr. Bob Avitia CUT-OFFS SEE BELOW Normal [facility] Comment on above: Result Comment: AMP (Amphetamine): 500ng/mL, BAR (Barbituates): 200 ng/mL, BZO (Benzodiazepines): 150 ng/mL, BUP (Buprenorphine): 10 ng/mL, CYNTHIA (Cocaine): 150 ng/mL, mAMP (Methamphetamine): 500 ng/mL, MTD (Methadone): 200 ng/mL, OPI (Opiates): 100 ng/mL, OXY (Oxycodone): 100 ng/mL, PCP (Phencyclidine): 25 ng/mL, PPX (Propoxyphene): 300 ng/mL, THC (Cannabinoids): 50 ng/mL, TCA (Trycyclic Antidepressants): 300 ng/mL Performed By: #### A CET, CMP, SALYC #### [facility] [address] [place] [address] Dr. Bob Avitia DRUG CUT HEADER DRUG CLASS TEST SYSTEM CUT-OFF CONCENTRATIONS ARE FOLLOWS: Normal [facility] Comment on above: Performed By: #### A CET, CMP, SALYC #### [facility] [address] [place] [address] Dr. Bob Avitia mAMP Negative Normal NEGATIVE [facility] Comment on above: Performed By: #### A CET, CMP, SALYC #### [facility] [address] [address] [address] Bob Avitia MTD Negative Normal NEGATIVE [facility] Comment on above: Performed By: #### A CET, CMP, SALYC #### [facility] [address] [address] [address] Bob Avitia OPI Negative Normal NEGATIVE [facility] Comment on above: Performed By: #### A CET, CMP, SALYC #### [facility] [address] [place] [address] Dr. Bob Avitia OXY Negative Normal NEGATIVE [facility] Comment on above: Performed By: #### A CET, CMP, SALYC #### [facility] [address] [place] [address] Dr. Bob Avitia PCP Negative Normal NEGATIVE [facility] Comment on above: Performed By: #### A CET, CMP, SALYC #### [facility] [address] [place] [address] Dr. Bob Aviita PPX Negative Normal NEGATIVE [facility] Comment on above: Performed By: #### A CET, CMP, SALYC #### [facility] [address] [place] [address] Dr. Bob Avitia TCA Negative Normal NEGATIVE [facility] Comment on above: Performed By: #### A CET, CMP, SALYC #### [facility] [address] [address] [address] Bob Avitia THC Negative Normal NEGATIVE [facility] Comment on above: Performed By: #### A CET, CMP, SALYC #### [facility] [address] [place] [address] Dr. Bob Avitia ER URINE PROFILEon 2 Bilirubin Ql (U) Negative Normal NEGATIVE [facility] Comment on above: Performed By: #### A CET, CMP, SALYC #### [facility] [address] [place] [address] Dr. Bob Avitia Clarity (U) CLEAR Normal CLEAR [facility] Comment on above: Performed By: #### A CET, CMP, SALYC #### [facility] [address] [place] [address] Dr. Bob Avitia Color (U) YELLOW Normal YELLOW [facility] Comment on above: Performed By: #### A CET, CMP, SALYC #### [facility] [address] [place] [address] Dr. Bob MENDEZ A micrscopic examination will be performed if indicated. Normal [facility] Comment on above: Performed By: #### A CET, CMP, SALYC #### [facility] [address] [place] [address] Dr. Bob Avitia Glucose Ql (U) Negative Normal NEGATIVE [facility] Comment on above: Performed By: #### A CET, CMP, SALYC #### [facility] [address] [place] [address] Dr. Bob Avitia Hemoglobin Ql (U) TRACE-INTACT Abnormal NEGATIVE [facility] Comment on above: Performed By: #### A CET, CMP, SALYC #### [facility] [address] [place] [address] Dr. Bob Avitia Ketones Ql (U) Negative Normal NEGATIVE [facility] Comment on above: Performed By: #### A CET, CMP, SALYC #### [facility] [address] [place] [address] Dr. Bob Avitia LEUKOCYTES Negative Normal NEGATIVE [facility] Comment on above: Performed By: #### A CET, CMP, SALYC #### [facility] [address] [place] [address] Dr. Bob Avitia Nitrite Ql (U) Negative Normal NEGATIVE [facility] Comment on above: Performed By: #### A CET, CMP, SALYC #### [facility] [address] [place] [address] Dr. Bob Avitia pH (U) 6.0 [pH] Normal 5-9 [facility] Comment on above: Performed By: #### A CET, CMP, SALYC #### [facility] [address] [place] [address] Dr. Bob Avitia SPEC GRAVITY >=1.030 Abnormal 1.005-<=1.0 25 [facility] Comment on above: Performed By: #### A CET, CMP, SALYC #### [facility] [address] [place] [address] Dr. Bob Avitia UA PROTEIN TRACE Normal NEGATIVE/ TRACE [facility] Comment on above: Performed By: #### A CET, CMP, SALYC #### [facility] [address] [place] [address] Dr. Bob Avitia UR MICRO IND INDICATED Normal [facility] Comment on above: Performed By: #### A CET, CMP, SALYC #### [facility] [address] [place] [address] Dr. Bob Avitia Urobilinogen Qn (U) 1.0 {Sandee'U}/dL Normal 0.2 - 1. 0 [facility] Comment on above: Performed By: #### A CET, CMP, SALYC #### [facility] [address] [place] [address] Dr. Bob Avitia ETHANOL (BLD ALC)on 10-08-19 ALC NOTE NOTE: 80 mg/dl is th e legal limit for a blood alcohol level Normal [facility] Comment on above: Performed By: #### A CET, CMP, SALYC #### [facility] [address] [place] [address] Dr. Bob Avitia Ethanol [Mass/Vol] mg/dL Normal [facility] Comment on above: Performed By: #### A CET, CMP, SALYC #### [facility] [address] [place] [address] Dr. Bob Avitia HEMATOLOGYOrdered By: SYSTEM SYSTEM on 10-07-2021 Basophils/100 WBC (Bld) 0.5 % Normal 0.0 - 2.0 % [facility] Basophils/Leukocytes Auto (Bld) [Pure # fraction] 0.0 E9/L Normal 0.0 - 0.2 E9/L [facility] Eosinophils/100 WBC (Bld) 0.7 % Normal 0.0 - 8.0 % [facility] Eosinophils/Leukocytes Auto (Bld) [Pure # fraction] 0.0 E9/L Normal 0.0 - 0.5 E9/L [facility] Lymphocytes/100 WBC (Bld) 24.1 % Normal 14.0 - 50.0 % [facility] Lymphocytes/Leukocytes Auto (Bld) [Pure # fraction] 1.7 E9/L Normal 1.0 - 4.0 E9/L [facility] Monocytes/100 WBC (Bld) 6.9 % Normal 4.0 - 14.0 % [facility] Monocytes/Leukocytes Auto (Bld) [Pure # fraction] 0.5 E9/L Normal 0.2 - 1.0 E9/L [facility] Neutrophils/100 WBC (Bld) 67.8 % Normal 36.0 - 75.0 % [facility] Neutrophils/Leukocytes Auto (Bld) [Pure # fraction] 4.7 E9/L Normal 2.0 - 7.5 E9/L [facility] Basophils/100 WBC (Bld) 0.4 % Normal 0.0 - 2.0 % [facility] Basophils/Leukocytes Auto (Bld) [Pure # fraction] 0.0 E9/L Normal 0.0 - 0.2 E9/L [facility] Eosinophils/100 WBC (Bld) 1.0 % Normal 0.0 - 8.0 % [facility] Eosinophils/Leukocytes Auto (Bld) [Pure # fraction] 0.1 E9/L Normal 0.0 - 0.5 E9/L [facility] Lymphocytes/100 WBC (Bld) 25.2 % Normal 14.0 - 50.0 % [facility] Lymphocytes/Leukocytes Auto (Bld) [Pure # fraction] 2.0 E9/L Normal 1.0 - 4.0 E9/L [facility] Monocytes/100 WBC (Bld) 7.8 % Normal 4.0 - 14.0 % [facility] Monocytes/Leukocytes Auto (Bld) [Pure # fraction] 0.6 E9/L Normal 0.2 - 1.0 E9/L [facility] Neutrophils/100 WBC (Bld) 65.6 % Normal 36.0 - 75.0 % [facility] Neutrophils/Leukocytes Auto (Bld) [Pure # fraction] 5.3 E9/L Normal 2.0 - 7.5 E9/L [facility] HEMATOLOGYOrdered By: Rosanna Spencer on 10-07-2021 Erythrocyte distribution width (RBC) [Ratio] 15.6 % High 10.9 - 14.2 % [facility] Hematocrit (Bld) [Volume fraction] 36.3 % Normal 34.0 - 46.0 % [facility] Hemoglobin (Bld) [Mass/Vol] 11.6 g/dL Low 12.0 - 16.0 gm/dL [facility] MCH (RBC) [Entitic mass] 25.8 pg Low 27.0 - 34.0 pg [facility] MCHC (RBC) [Mass/Vol] 31.9 g/dL Normal 31.4 - 36.0 gm/dL [facility] MCV (RBC) [Entitic vol] 80.9 fL Normal 80.0 - 100.0 fL [facility] Platelet mean volume (Bld) [Entitic vol] 7.8 fL Normal 6.4 - 10.8 fL [facility] Platelets (Bld) [#/Vol] 378.0 E9/L Normal 150. 0 - 500.0 E9/L [facility] RBC (Bld) [#/Vol] 4.5 E12/L Normal 4.3 - 5.9 E12/L [facility] WBC corrected for nucl RBC Auto (Bld) [#/Vol] 7.0 E9/L Normal 4.0 - 11.0 E9/L [facility] HEMATOLOGYOrdered By: Abraham Colin on 10-07-2021 Erythrocyte distribution width (RBC) [Ratio] 15.0 % High 10.9 - 14.2 % [facility] Hematocrit (Bld) [Volume fraction] 37.2 % Normal 34.0 - 46.0 % [facility] Hemoglobin (Bld) [Mass/Vol] 12.0 g/dL Normal 12.0 - 16.0 gm/dL [facility] MCH (RBC) [Entitic mass] 26.1 pg Low 27.0 - 34.0 pg [facility] MCHC (RBC) [Mass/Vol] 32.4 g/dL Normal 31.4 - 36.0 gm/dL [facility] MCV (RBC) [Entitic vol] 80.8 fL Normal 80.0 - 100.0 fL [facility] Platelet mean volume (Bld) [Entitic vol] 7.8 fL Normal 6.4 - 10.8 fL [facility] Platelets (Bld) [#/Vol] 380.0 E9/L Normal 150. 0 - 500.0 E9/L [facility] RBC (Bld) [#/Vol] 4.6 E12/L Normal 4.3 - 5.9 E12/L [facility] WBC corrected for nucl RBC Auto (Bld) [#/Vol] 8.0 E9/L Normal 4.0 - 11.0 E9/L [facility] PREG HCG QUALon 10-07-2021 , QUAL Negative Normal NEGATIVE [facility] Comment on above: Performed By: #### C MP #### [facility] [address] [place] [address] Dr. Bob Avitia PROF 14(COMP METB)on 022 Albumin [Mass/Vol] 3.8 g/dL Normal 3.4-5.0 [facility] Comment on above: Performed By: #### A CET, CMP, SALYC #### [facility] [address] [address] [address] Bob Avitia Albumin/Globulin [Mass ratio] 1.0 {ratio} Normal [facility] Comment on above: Performed By: #### A CET, CMP, SALYC #### [facility] [address] [address] [address] Bob Avitia ALP [Catalytic activity/Vol] 89 U/L Normal 46-116 [facility] Comment on above: Performed By: #### A CET, CMP, SALYC #### [facility] [address] [address] [address] Bob Avitia ALT [Catalytic activity/Vol] 16 U/L Normal 14-59 [facility] Comment on above: Performed By: #### A CET, CMP, SALYC #### [facility] [address] [address] [address] Bob Avitia Anion gap [Moles/Vol] 15.1 mmol/L Normal [facility] Comment on above: Performed By: #### A CET, CMP, SALYC #### [facility] [address] [address] [address] Bob Avitia AST [Catalytic activity/Vol] 10 U/L Critically low 15-37 [facility] Comment on above: Performed By: #### A CET, CMP, SALYC #### [facility] [address] [address] [address] Bob Avitia Bilirubin [Mass/Vol] 0.4 mg/dL Normal 0.2-1.0 [facility] Comment on above: Performed By: #### A CET, CMP, SALYC #### [facility] [address] [place] [address] Dr. Bob Avitia Calcium [Mass/Vol] 8.9 mg/dL Normal 8.5-10.1 [facility] Comment on above: Performed By: #### A CET, CMP, SALYC #### [facility] [address] [place] [address] Dr. Bob Avitia Chloride [Moles/Vol] 106 mmol/L Normal 98-107 [facility] Comment on above: Performed By: #### A CET, CMP, SALYC #### [facility] [address] [address] [address] Bob Avitia CO2 [Moles/Vol] 23.5 mmol/L Normal 21.0-32.0 [facility] Comment on above: Performed By: #### A CET, CMP, SALYC #### [facility] [address] [place] [address] Dr. Bob Avitia Creatinine [Mass/Vol] 0.81 mg/dL Normal 0.55-1.02 [facility] Comment on above: Performed By: #### A CET, CMP, SALYC #### [facility] [address] [place] [address] Dr. Bob Avitia EGFR-AF [place] >60 Normal >=60 [facility] Comment on above: Performed By: #### A CET, CMP, SALYC #### [facility] [address] [address] [address] Bob Avitia EGFR-NON AF [place] >60 Normal >=60 [facility] Comment on above: Performed By: #### A CET, CMP, SALYC #### [facility] [address] [place] [address] Dr. Bob Avitia Globulin (S) [Mass/Vol] 3.7 g/dL Normal [facility] Comment on above: Performed By: #### A CET, CMP, SALYC #### [facility] [address] [place] [address] Dr. Bob Avitia Glucose [Mass/Vol] 117 mg/dL Critically high 74-106 [facility] Comment on above: Performed By: #### A CET, CMP, SALYC #### [facility] [address] [place] [address] Dr. Bob Avitia Potassium [Moles/Vol] 3.6 mmol/L Normal 3.5-5.1 [facility] Comment on above: Performed By: #### A CET, CMP, SALYC #### [facility] [address] [place] [address] Dr. Bob Avitia Protein [Mass/Vol] 7.5 g/dL Normal 6.4-8.2 [facility] Comment on above: Performed By: #### A CET, CMP, SALYC #### [facility] [address] [place] [address] Dr. Bob Avitia Sodium [Moles/Vol] 141 mmol/L Normal 136-145 [facility] Comment on above: Performed By: #### A CET, CMP, SALYC #### [facility] [address] [place] [address] Dr. Bob Avitia Urea nitrogen [Mass/Vol] 6.0 mg/dL Critically low 7.0-18.0 [facility] Comment on above: Performed By: #### A CET, CMP, SALYC #### [facility] [address] [address] [address] Bob Avitia Urea nitrogen/Creatinine [Mass ratio] 7.4 mg/mg Normal [facility] Comment on above: Performed By: #### A CET, CMP, SALYC #### [facility] [address] [address] [address] Bob Avitia SALICYLATEon 10-07-2021 SALICYLATE <2.8 Normal <=19.9 [facility] Comment on above: Performed By: #### A CET, CMP, SALYC #### [facility] [address] [address] [address] Bob Avitia SEROLOGYOrdered By: Melida avitia on 10-07-2021 Beta hCG Ql Negative (10/07/21 2:04 PM) Normal [facility] Man Sero URINE MICROSCOPIC ONLYon BACTERIA NONE SEEN Normal NONE SEEN [facility] Comment on above: Performed By: #### A CET, CMP, SALYC #### [facility] [address] [place] [address] Dr. Bob Avitia Bacteria identified Cx Nom (U) NOT INDICATED Normal [facility] Comment on above: Performed By: #### A CET, CMP, SALYC #### [facility] [address] [place] [address] Dr. Bob Avitia CAST NONE SEEN Normal NONE SEEN [facility] Comment on above: Performed By: #### A CET, CMP, SALYC #### [facility] [address] [address] [address] Bob Avitia Crystals LM Nom (Urine sed) NONE SEEN Normal NONE SEEN [facility] Comment on above: Performed By: #### A CET, CMP, SALYC #### [facility] [address] [place] [address] Dr. Bob Avitia Epithelial cells LM Ql (Urine sed) RARE Normal NONE SEEN /RARE [facility] Comment on above: Performed By: #### A CET, CMP, SALYC #### [facility] [address] [place] [address] Dr. Bob Avitia MUCOUS NONE SEEN Normal NONE SEEN [facility] Comment on above: Performed By: #### A CET, CMP, SALYC #### [facility] [address] [place], [place] [address] Dr. Bob Avitia RBC 0-2 Normal 0-2 [facility] Comment on above: Performed By: #### A CET, CMP, SALYC #### [facility] [address] [place], [place] [address] Dr. Bob Avitia WBC NONE SEEN Normal NONE SEEN [facility] Comment on above: Performed By: #### A CET, CMP, SALYC #### [facility] [address] [place], [place] [address] Dr. Bob Avitia MICRO OTHER TESTSOrdered By: Abraham Colin on 10-06-2021 Rapid COV Int NEG Ctl Pass (10/06/21 4:03 AM) Normal [facility] Rapid COV Int POS Ctl Pass (10/06/21 4:03 AM) Normal [facility] SARS-CoV+SARS-CoV-2 (COVID-19) Ag IA.rapid Ql (Resp) Not Detected (10/06/21 4:03 AM) Normal Not Detected [facility] CHEMISTRYOrdered By: SYSTEM SYSTEM on 10-04-2021 Albumin [Mass/Vol] 4.0 g/dL Normal 3.3 - 5.0 gm/dL [facility] Albumin/Globulin [Mass ratio] 1.1 {ratio} Normal 1.1 - 2.2 [facility] ALP [Catalytic activity/Vol] 68 [iU]/d Normal 21 - 98 Int._Unit/L [facility] ALT No additional P-5'-P [Catalytic activity/Vol] 17 [iU]/d Normal 6 - 46 Int._Unit/L [facility] Anion gap [Moles/Vol] 14 mmol/L Normal 6 - 16 mEq/L [facility] AST [Catalytic activity/Vol] 22 [iU]/d Normal 5 - 43 Int._Unit/L [facility] Bilirubin [Mass/Vol] 0.4 mg/dL Normal 0.0 - 1 .1 mg/dL [facility] Calcium [Mass/Vol] 9.4 mg/dL Normal 8.9 - 11. 1 mg/dL [facility] Chloride [Moles/Vol] 104 mmol/L Normal 101 - 1 11 mmol/L [facility] CO2 [Moles/Vol] 21 mmol/L Normal 21 - 31 mmol/L [facility] Creatinine [Mass/Vol] 0.7 mg/dL Normal 0.5 - 1.3 mg/dL [facility] GFR/1.73 sq M.predicted among blacks MDRD (S/P/Bld) [Vol rate/Area] mL/min/1.73 m2 Normal >=59mL/min/ 1.73 m2 [facility] S GFR/1.73 sq M.predicted among non-blacks MDRD (S/P/Bld) [Vol rate/Area] mL/min/1.73 m2 Normal >=59mL/min/ 1.73 m2 [facility] Chem S Globulin (S) [Mass/Vol] 3.7 g/dL Normal 1.4 - 4.0 gm/dL [facility] Glucose [Mass/Vol] 140 mg/dL Normal 55 - 199 mg/dL [facility] Potassium [Moles/Vol] 3.3 mmol/L Low 3.5 - 5.3 mmol/L [facility] Protein [Mass/Vol] 7.7 g/dL Normal 6.0 - 7.8 gm/dL [facility] Sodium [Moles/Vol] 136 mmol/L Normal 135 - 145 mmol/L [facility] Urea nitrogen [Mass/Vol] 13 mg/dL Normal 5 - 21 mg/dL [facility] Urea nitrogen/Creatinine [Mass ratio] 19 mg/mg Normal 10 - 20 [facility] Amphetamines Screen method >1000 ng/mL Ql (U) Negative (10/04/21 8:20 PM) Normal Negative [facility] Barbiturates Screen Ql (U) Negative (10/04/21 8:20 PM) Normal Negative [facility] Benzodiazepines Ql (U) Negative (10/04/21 8:20 PM) Normal Negative [facility] Cocaine Ql (U) Negative (10/04/21 8:20 PM) Normal Negative [facility] Opiates Screen Ql (U) Negative (10/04/21 8:20 PM) Normal Negative [facility] Phencyclidine Screen method >25 ng/mL Ql (U) Negative (10/04/21 8:20 PM) Normal Negative [facility] Tetrahydrocannabinol Screen method >50 ng/mL Ql (U) Negative (10/04/21 8:20 PM) Normal Negative [facility] CHEMISTRYOrdered By: Yuliet Goode on 10-04-2021 Ethanol [Mass/Vol] mg/dL Normal <=7mg/dL [facility] C hem S HEMATOLOGYOrdered By: SYSTEM SYSTEM on 10-04-2021 Basophils/100 WBC (Bld) 0.8 % Normal 0.0 - 2.0 % [facility] Basophils/Leukocytes Auto (Bld) [Pure # fraction] 0.1 E9/L Normal 0.0 - 0.2 E9/L [facility] Eosinophils/100 WBC (Bld) 0.6 % Normal 0.0 - 8.0 % [facility] Eosinophils/Leukocytes Auto (Bld) [Pure # fraction] 0.0 E9/L Normal 0.0 - 0.5 E9/L [facility] Lymphocytes/100 WBC (Bld) 22.5 % Normal 14.0 - 50.0 % [facility] Lymphocytes/Leukocytes Auto (Bld) [Pure # fraction] 1.9 E9/L Normal 1.0 - 4.0 E9/L [facility] Monocytes/100 WBC (Bld) 6.4 % Normal 4.0 - 14.0 % [facility] Monocytes/Leukocytes Auto (Bld) [Pure # fraction] 0.5 E9/L Normal 0.2 - 1.0 E9/L [facility] Neutrophils/100 WBC (Bld) 69.7 % Normal 36.0 - 75.0 % [facility] Neutrophils/Leukocytes Auto (Bld) [Pure # fraction] 5.8 E9/L Normal 2.0 - 7.5 E9/L [facility] HEMATOLOGYOrdered By: Artie henderson on 10-04-2021 Erythrocyte distribution width (RBC) [Ratio] 15.3 % High 10.9 - 14.2 % [facility] Hematocrit (Bld) [Volume fraction] 40.0 % Normal 34.0 - 46.0 % [facility] Hemoglobin (Bld) [Mass/Vol] 12.7 g/dL Normal 12.0 - 16.0 gm/dL [facility] MCH (RBC) [Entitic mass] 25.7 pg Low 27.0 - 34.0 pg [facility] MCHC (RBC) [Mass/Vol] 31.7 g/dL Normal 31.4 - 36.0 gm/dL [facility] MCV (RBC) [Entitic vol] 81.1 fL Normal 80.0 - 100.0 fL [facility] Platelet mean volume (Bld) [Entitic vol] 7.8 fL Normal 6.4 - 10.8 fL [facility] Platelets (Bld) [#/Vol] 409.0 E9/L Normal 150. 0 - 500.0 E9/L [facility] RBC (Bld) [#/Vol] 4.9 E12/L Normal 4.3 - 5.9 E12/L [facility] WBC corrected for nucl RBC Auto (Bld) [#/Vol] 8.3 E9/L Normal 4.0 - 11.0 E9/L [facility] ACETAMINOPHENon 09-21-2021 Acetaminophen [Mass/Vol] ug/mL Critically low 10.0-30.0 [facility] Comment on above: Performed By: #### A CET, CMP, SALYC #### [facility] [address] [address] [address] Bob Avitia Cholesterol [Mass/volume] in Serum or PlasmaOrdered By: Scar Julian on 09-21-2021 Cholesterol [Mass/Vol] 180 mg/dL 140-200 [facility] Comment on above: Chol less than 200 m g/dl low risk Chol 201-239 mg/dl borderline risk Chol 240 mg/dl and greater high risk Cholesterol in LDL Calc [Mas s/Vol]Ordered By: Scar Julian on 09-21-2021 Cholesterol in LDL [Mass/Vol] 135 mg/dL 0-100 [facility] Comment on above: LDL ATP III CLASSIFI CATION LDL less than 100 mg/dL Optimal LDL 100-129 mg/dL Near or above optimal LDL 130-159 mg/dL Borderline high LDL 160-189 mg/dL High LDL greater than 189 mg/dL Very high Cholesterol in VLDL Calc [Ma ss/Vol]Ordered By: Scar Julian on 09-21-2021 Cholesterol in VLDL [Mass/Vol] 11 mg/dL [facility] Covid-19 PCR (CVDTBH)on 09-01 SARS-CoV-2 (COVID-19) RNA CHANTEL+probe Ql (Unsp spec) Not detected Normal NOT DETECTED [facility] Comment on above: Result Comment: When diagnostic testing is negative, the possibility of a false negative should be considered in the context of a patient's recent exposures and the presence of clinical signs and symptoms consistent with SARS-CoV-2. This test is not yet approved or cleared by the [place] FDA. When there are no FDA-approved or cleared tests available, and other criteria are met, FDA can make tests available under an emergency access mechanism called an Emergency Use Authorization (EUA). The EUA for this test is supported by the Director Supplier Quality of Health and Human Service's declaration that circumstances exist to justify the emergency use of in vitro diagnostics for the detection and/or diagnosis of the virus that causes COVID-19. This EUA will remain in effect for the duration of the COVID-19 declaration justifying emergency of IVDs, unless it is terminated or revoked by the FDA (after which the test may no longer be used). Performed By: #### C MP #### [facility] [address] [place] [address] Dr. Bob Avitia DRUG SCREEN RAPID (URINE)on 09-21-2021 AMP Negative Normal NEGATIVE [facility] Comment on above: Performed By: #### A CET, CMP, SALYC #### [facility] [address] [place] [address] Dr. Bob Avitia BAR Negative Normal NEGATIVE [facility] Comment on above: Performed By: #### A CET, CMP, SALYC #### [facility] [address] [place] [address] Dr. Bob Avitia BUP Negative Normal NEGATIVE [facility] Comment on above: Performed By: #### A CET, CMP, SALYC #### [facility] [address] [place] [address] Dr. Bob Avitia BZO Negative Normal NEGATIVE [facility] Comment on above: Performed By: #### A CET, CMP, SALYC #### [facility] [address] [place] [address] Dr. Bbo Avitia CYNTHIA Negative Normal NEGATIVE [facility] Comment on above: Performed By: #### A CET, CMP, SALYC #### [facility] [address] [place] [address] Dr. Bob Avitia CUT-OFFS SEE BELOW Normal [facility] Comment on above: Result Comment: AMP (Amphetamine): 500ng/mL, BAR (Barbituates): 200 ng/mL, BZO (Benzodiazepines): 150 ng/mL, BUP (Buprenorphine): 10 ng/mL, CYNTHIA (Cocaine): 150 ng/mL, mAMP (Methamphetamine): 500 ng/mL, MTD (Methadone): 200 ng/mL, OPI (Opiates): 100 ng/mL, OXY (Oxycodone): 100 ng/mL, PCP (Phencyclidine): 25 ng/mL, PPX (Propoxyphene): 300 ng/mL, THC (Cannabinoids): 50 ng/mL, TCA (Trycyclic Antidepressants): 300 ng/mL Performed By: #### A CET, CMP, SALYC #### [facility] [address] [place] [address] Dr. Bob Avitia DRUG CUT HEADER DRUG CLASS TEST SYSTEM CUT-OFF CONCENTRATIONS ARE FOLLOWS: Normal [facility] Comment on above: Performed By: #### A CET, CMP, SALYC #### [facility] [address] [place] [address] Dr. Bob Avitia mAMP Negative Normal NEGATIVE [facility] Comment on above: Performed By: #### A CET, CMP, SALYC #### [facility] [address] [place] [address] Dr. Bob Avitia MTD Negative Normal NEGATIVE [facility] Comment on above: Performed By: #### A CET, CMP, SALYC #### [facility] [address] [place] [address] Dr. Bob Avitia OPI Negative Normal NEGATIVE [facility] Comment on above: Performed By: #### A CET, CMP, SALYC #### [facility] [address] [address] [address] Bob Avitia OXY Negative Normal NEGATIVE [facility] Comment on above: Performed By: #### A CET, CMP, SALYC #### [facility] [address] [address] [address] Bob Avitia PCP Negative Normal NEGATIVE [facility] Comment on above: Performed By: #### A CET, CMP, SALYC #### [facility] [address] [address] [address] Bob Avitia PPX Negative Normal NEGATIVE [facility] Comment on above: Performed By: #### A CET, CMP, SALYC #### [facility] [address] [place] [address] Dr. Bob Avitia TCA Negative Normal NEGATIVE [facility] Comment on above: Performed By: #### A CET, CMP, SALYC #### [facility] [address] [place] [address] Dr. Bob Aviita THC Negative Normal NEGATIVE [facility] Comment on above: Performed By: #### A CET, CMP, SALYC #### [facility] [address] [place] [address] Dr. Bob Avitia ETHANOL (BLD ALC)on 09-22-19 ALC NOTE NOTE: 80 mg/dl is th e legal limit for a blood alcohol level Normal [facility] Comment on above: Performed By: #### A CET, CMP, SALYC #### [facility] [address] [place] [address] Dr. Bob Avitia Ethanol [Mass/Vol] mg/dL Normal [facility] Comment on above: Performed By: #### A CET, CMP, SALYC #### [facility] [address] [place] [address] Dr. Bob Avitia No Panel InformationOrdered By: Scar Julian on 09-21-2021 25-Hydroxy Vitamin D Total 19.0 ng/mL 30-100 [facility] Comment on above: VITAMIN D STATUS 25( OH)VITAMIN D RANGE (ng/mL) Deficient <20 Insufficient 20 to <30 Sufficient 30 to 100 Reference: Tiago MF,Sarah NC, Neha FARIAS, et al. Evaluation,treatment, and prevention of vitamin D deficiency; an Endocrine Society clinical practice guideline. JCEM. 2010; 96(7):1911-30. SALICYLATEon 09-21-2021 SALICYLATE <2.8 Normal <=19.9 [facility] Comment on above: Performed By: #### A CET, CMP, SALYC #### [facility] [address] [address] [address] Bob Avitia Serum or plasma high density lipoprotein (HDL) cholesterol measurementOrdered By: Scar Julian on 09-21-2021 Cholesterol in HDL [Mass/Vol] 33 mg/dL 35-85 [facility] Comment on above: HDL CHOL ATP-III CLA SSIFICATION Cardiovascular Risk HDL > or equal to 60 mg/dL LOW HDL < 40 mg/dL HIGH Serum or plasma total choles terol/high density lipoprotein (HDL) cholesterol mass ratOrdered By: Scar Julian on 09-21-2021 Cholesterol.total/Audelia sterol in HDL [Mass ratio] 5.5 {ratio} <5.0 [facility] TSH DL <= 0.005 mIU/L QnOrde red By: Scar Julian on 09-21-2021 TSH Qn 1.62 m[IU]/L 0.45-5.33 [facility] Triglyceride [Mass/volume] i n Serum or PlasmaOrdered By: Scar Julian on 09-21-2021 Triglyceride [Mass/Vol] 59 mg/dL 35-149 [facility] Comment on above: TRIG ATP III CLASSIF ICATION TRIG less than 150 mg/dL Normal TRIG 150-199 mg/dL Borderline high TRIG 200-500 mg/dL High TRIG greater than 500 mg/dL Very high Standard traceable to the Center for Disease Conrtrol and Prevention (CDC) test method. ACETAMINOPHENon 08-28-2021 Acetaminophen [Mass/Vol] ug/mL Critically low 10.0-30.0 [facility] Comment on above: Performed By: #### A CET, CMP, SALYC #### [facility] [address] [place] [address] Dr. Bob Avitia CBC AUTO DIFFon 08-28-2021 BASO # 0.0 103/ul Normal 0.0-0.1 [facility] Comment on above: Performed By: #### A CET, CMP, SALYC #### [facility] [address] [place] [address] Dr. Bob Avitia Basophils/100 WBC (Bld) 0.4 % Normal 0.2-2.0 [facility] Comment on above: Performed By: #### A CET, CMP, SALYC #### [facility] [address] [place] [address] Dr. Bob Avitia EO # 0.1 103/ul Normal 0.0-0.7 [facility] Comment on above: Performed By: #### A CET, CMP, SALYC #### [facility] [address] [place] [address] Dr. Bob Avitia Eosinophils/100 WBC (Bld) 1.3 % Normal 0.9-7.0 [facility] Comment on above: Performed By: #### A CET, CMP, SALYC #### [facility] [address] [place] [address] Dr. Bob Avitia Erythrocyte distribution width (RBC) [Ratio] 13.8 % Normal 11.0-15.0 [facility] Comment on above: Performed By: #### A CET, CMP, SALYC #### [facility] [address] [place] [address] Dr. Bob Avitia Hematocrit (Bld) [Volume fraction] 35.8 % Critically low 36.0-48.0 [facility] Comment on above: Performed By: #### A CET, CMP, SALYC #### [facility] [address] [place] [address] Dr. Bob Avitia Hemoglobin (Bld) [Mass/Vol] 11.5 g/dL Critically low 12.0-16.0 [facility] Comment on above: Performed By: #### A CET, CMP, SALYC #### [facility] [address] [place], [place] [id number] Dr. Bob Avitia IG # 0.03 10e3/ul Normal 0.00-0.03 [facility] Comment on above: Performed By: #### A CET, CMP, SALYC #### [facility] [address] [place] [address] Dr. Bbo Avitia IG % 0.4 % Normal 0.0-0.5 [facility] Comment on above: Performed By: #### A CET, CMP, SALYC #### [facility] [address] [place] [address] Dr. Bob Avitia LYMPH # 1.9 103/ul Normal 1.2-3.8 [facility] Comment on above: Performed By: #### A CET, CMP, SALYC #### [facility] [address] [place] [address] Dr. Bob Avitia Lymphocytes/100 WBC (Bld) 25.5 % Normal 20.5-60.0 [facility] Comment on above: Performed By: #### A CET, CMP, SALYC #### [facility] [address] [place] [address] Dr. Bob Avitia MANUAL DIFF REQ NO Normal [facility] Comment on above: Performed By: #### A CET, CMP, SALYC #### [facility] [address] [place] [address] Dr. Bob Avitia MCH (RBC) [Entitic mass] 26.8 pg Normal 26.7-34.0 [facility] Comment on above: Performed By: #### A CET, CMP, SALYC #### [facility] [address] [place] [address] Dr. Bob Avitia MCHC (RBC) [Mass/Vol] 32.1 g/dL Normal 29.9-35.2 [facility] Comment on above: Performed By: #### A CET, CMP, SALYC #### [facility] [address] [place] [address] Dr. Bob Avitia MCV (RBC) [Entitic vol] 83.4 fL Normal 81.0-99.0 [facility] Comment on above: Performed By: #### A CET, CMP, SALYC #### [facility] [address] [place] [address] Dr. Bob Avitia MONO # 0.5 103/ul Normal 0.3-0.8 [facility] Comment on above: Performed By: #### A CET, CMP, SALYC #### [facility] [address] [place] [address] Dr. Bob Avitia Monocytes/100 WBC (Bld) 6.0 % Normal 1.7-12.0 [facility] Comment on above: Performed By: #### A CET, CMP, SALYC #### [facility] [address] [place] [address] Dr. Bob Avitia NEUT # 5.0 103/ul Normal 1.4-6.5 [facility] Comment on above: Performed By: #### A CET, CMP, SALYC #### [facility] [address] [place] [address] Dr. Bob Avitia Neutrophils/100 WBC (Bld) 66.4 % Normal 43.0-75.0 [facility] Comment on above: Performed By: #### A CET, CMP, SALYC #### [facility] [address] [place] [address] Dr. Bob Avitia Platelet mean volume (Bld) [Entitic vol] 9.2 fL Critically low 9.5-13.5 [facility] Comment on above: Performed By: #### A CET, CMP, SALYC #### [facility] [address] [place] [address] Dr. Bob Avitia PLT 387 103/ul Normal 150-450 [facility] Comment on above: Performed By: #### A CET, CMP, SALYC #### [facility] [address] [place] [address] Dr. Bob Avitia RBC 4.29 106/ul Normal 4.20-5.40 [facility] Comment on above: Performed By: #### A CET, CMP, SALYC #### [facility] [address] [place] [address] Dr. Bob Avitia WBC 7.6 103/ul Normal 4.0-11.0 [facility] Comment on above: Performed By: #### A CET, CMP, SALYC #### [facility] [address] [place] [address] Dr. Bob Avitia Covid-19 PCR ([facility])on 08-02 SARS-CoV-2 (COVID-19) RNA CHANTEL+probe Ql (Unsp spec) Not detected Normal NOT DETECTED [facility] Comment on above: Result Comment: When diagnostic testing is negative, the possibility of a false negative should be considered in the context of a patient's recent exposures and the presence of clinical signs and symptoms consistent with SARS-CoV-2. This test is not yet approved or cleared by the [place] FDA. When there are no FDA-approved or cleared tests available, and other criteria are met, FDA can make tests available under an emergency access mechanism called an Emergency Use Authorization (EUA). The EUA for this test is supported by the Director Supplier Quality of Health and Human Service's declaration that circumstances exist to justify the emergency use of in vitro diagnostics for the detection and/or diagnosis of the virus that causes COVID-19. This EUA will remain in effect for the duration of the COVID-19 declaration justifying emergency of IVDs, unless it is terminated or revoked by the FDA (after which the test may no longer be used). Performed By: #### A CET, CMP, SALYC #### [facility] [address] [place] [address] Dr. Bob Avitia DRUG SCREEN RAPID (URINE)on 08-28-2021 AMP Negative Normal NEGATIVE [facility] Comment on above: Performed By: #### C MP #### [facility] [address] [place] [address] Dr. Bob Avitia BAR Negative Normal NEGATIVE [facility] Comment on above: Performed By: #### C MP #### [facility] [address] [place] [address] Dr. Bob Avitia BUP Negative Normal NEGATIVE [facility] Comment on above: Performed By: #### C MP #### [facility] [address] [place] [address] Dr. Bob Avitia BZO Negative Normal NEGATIVE [facility] Comment on above: Performed By: #### C MP #### [facility] [address] [address] [address] Bob Avitia CYNTHIA Negative Normal NEGATIVE [facility] Comment on above: Performed By: #### C MP #### [facility] [address] [address] [address] Bob Avitia CUT-OFFS SEE BELOW Normal [facility] Comment on above: Result Comment: AMP (Amphetamine): 500ng/mL, BAR (Barbituates): 200 ng/mL, BZO (Benzodiazepines): 150 ng/mL, BUP (Buprenorphine): 10 ng/mL, CYNTHIA (Cocaine): 150 ng/mL, mAMP (Methamphetamine): 500 ng/mL, MTD (Methadone): 200 ng/mL, OPI (Opiates): 100 ng/mL, OXY (Oxycodone): 100 ng/mL, PCP (Phencyclidine): 25 ng/mL, PPX (Propoxyphene): 300 ng/mL, THC (Cannabinoids): 50 ng/mL, TCA (Trycyclic Antidepressants): 300 ng/mL Performed By: #### C MP #### [facility] [address] [place] [address] Dr. Bob Avitia DRUG CUT HEADER DRUG CLASS TEST SYSTEM CUT-OFF CONCENTRATIONS ARE FOLLOWS: Normal [facility] Comment on above: Performed By: #### C MP #### [facility] [address] [place] [address] Dr. Bob Avitia mAMP Negative Normal NEGATIVE [facility] Comment on above: Performed By: #### C MP #### [facility] [address] [address] [address] Bob Avitia MTD Negative Normal NEGATIVE [facility] Comment on above: Performed By: #### C MP #### [facility] [address] [place] [address] Dr. Bob Avitia OPI Negative Normal NEGATIVE [facility] Comment on above: Performed By: #### C MP #### [facility] [address] [place] [address] Dr. Bob Avitia OXY Negative Normal NEGATIVE [facility] Comment on above: Performed By: #### C MP #### [facility] [address] [address] [address] Bob Avitia PCP Negative Normal NEGATIVE [facility] Comment on above: Performed By: #### C MP #### [facility] [address] [address] [address] Bob Avitia PPX Negative Normal NEGATIVE [facility] Comment on above: Performed By: #### C MP #### [facility] [address] [address] [address] Bob Avitia TCA Negative Normal NEGATIVE [facility] Comment on above: Performed By: #### C MP #### [facility] [address] [address] [address] Bob Avitia THC Negative Normal NEGATIVE [facility] Comment on above: Performed By: #### C MP #### [facility] [address] [place] [address] Dr. Bob Avitia ETHANOL (BLD ALC)on 08-29-19 22 ALC NOTE NOTE: 80 mg/dl is th e legal limit for a blood alcohol level Normal [facility] Comment on above: Performed By: #### A CET, CMP, SALYC #### [facility] [address] [address] [address] Bob Avitia Ethanol [Mass/Vol] mg/dL Normal [facility] Comment on above: Performed By: #### A CET, CMP, SALYC #### [facility] [address] [address] [address] Bob Avitia URon 08-28-2021 , QUAL Negative Normal NEGATIVE [facility] Comment on above: Performed By: #### C MP #### [facility] [address] [address] [address] Bob Avitia PROF 14(COMP METB)on 022 Albumin [Mass/Vol] 3.5 g/dL Normal 3.4-5.0 [facility] Comment on above: Performed By: #### A CET, CMP, SALYC #### [facility] [address] [place] [address] Dr. Bob Avitia Albumin/Globulin [Mass ratio] 1.0 {ratio} Normal [facility] Comment on above: Performed By: #### A CET, CMP, SALYC #### [facility] [address] [address] [address] Bob Avitia ALP [Catalytic activity/Vol] 88 U/L Normal 46-116 [facility] Comment on above: Performed By: #### A CET, CMP, SALYC #### [facility] [address] [address] [address] Bob Avitia ALT [Catalytic activity/Vol] 26 U/L Normal 14-59 [facility] Comment on above: Performed By: #### A CET, CMP, SALYC #### [facility] [address] [place] [address] Dr. Bob Avitia Anion gap [Moles/Vol] 11.6 mmol/L Normal [facility] Comment on above: Performed By: #### A CET, CMP, SALYC #### [facility] [address] [place] [address] Dr. Bob Avitia AST [Catalytic activity/Vol] 14 U/L Critically low 15-37 [facility] Comment on above: Performed By: #### A CET, CMP, SALYC #### [facility] [address] [place] [address] Dr. Bob Avitia Bilirubin [Mass/Vol] 0.5 mg/dL Normal 0.2-1.0 [facility] Comment on above: Performed By: #### A CET, CMP, SALYC #### [facility] [address] [place] [address] Dr. Bob Avitia Calcium [Mass/Vol] 8.7 mg/dL Normal 8.5-10.1 [facility] Comment on above: Performed By: #### A CET, CMP, SALYC #### [facility] [address] [place] [address] Dr. Bob Avitia Chloride [Moles/Vol] 105 mmol/L Normal 98-107 [facility] Comment on above: Performed By: #### A CET, CMP, SALYC #### [facility] [address] [address] [address] Bob Avitia CO2 [Moles/Vol] 24.8 mmol/L Normal 21.0-32.0 [facility] Comment on above: Performed By: #### A CET, CMP, SALYC #### [facility] [address] [address] [address] Bob Avitia Creatinine [Mass/Vol] 0.90 mg/dL Normal 0.55-1.02 [facility] Comment on above: Performed By: #### A CET, CMP, SALYC #### [facility] [address] [address] [address] Bob Avitia EGFR-AF [place] >60 Normal >=60 [facility] Comment on above: Performed By: #### A CET, CMP, SALYC #### [facility] [address] [place] [address] Dr. Bob Avitia EGFR-NON AF [place] >60 Normal >=60 [facility] Comment on above: Performed By: #### A CET, CMP, SALYC #### [facility] [address] [address] [address] Bob Avitia Globulin (S) [Mass/Vol] 3.6 g/dL Normal [facility] Comment on above: Performed By: #### A CET, CMP, SALYC #### [facility] [address] [address] [address] Bob Avitia Glucose [Mass/Vol] 103 mg/dL Normal 74-106 [facility] Comment on above: Performed By: #### A CET, CMP, SALYC #### [facility] [address] [address] [address] Bob Avitia Potassium [Moles/Vol] 3.4 mmol/L Critically low 3.5-5.1 [facility] Comment on above: Performed By: #### A CET, CMP, SALYC #### [facility] [address] [address] [address] Bob Avitia Protein [Mass/Vol] 7.1 g/dL Normal 6.4-8.2 [facility] Comment on above: Performed By: #### A CET, CMP, SALYC #### [facility] [address] [address] [address] Bob Avitia Sodium [Moles/Vol] 138 mmol/L Normal 136-145 [facility] Comment on above: Performed By: #### A CET, CMP, SALYC #### [facility] [address] [address] [address] Bob Avitia Urea nitrogen [Mass/Vol] 12.0 mg/dL Normal 7.0-18.0 [facility] Comment on above: Performed By: #### A CET, CMP, SALYC #### [facility] [address] [address] [address] Bob Avitia Urea nitrogen/Creatinine [Mass ratio] 13.3 mg/mg Normal [facility] Comment on above: Performed By: #### A CET, CMP, SALYC #### [facility] [address] [place] [address] Dr. Bob Avitia SALICYLATEon 08-28-2021 SALICYLATE <2.8 Normal <=19.9 [facility] Comment on above: Performed By: #### A CET, CMP, SALYC #### [facility] [address] [place] [address] Dr. Bob Avitia CHEMISTRYOrdered By: SYSTEM SYSTEM on 08-22-2021 Albumin [Mass/Vol] 3.7 g/dL Normal 3.3 - 5.0 gm/dL [facility] Albumin/Globulin [Mass ratio] 1.1 {ratio} Normal 1.1 - 2.2 [facility] ALP [Catalytic activity/Vol] 75 [iU]/d Normal 21 - 98 Int._Unit/L [facility] ALT No additional P-5'-P [Catalytic activity/Vol] 16 [iU]/d Normal 6 - 46 Int._Unit/L [facility] Anion gap [Moles/Vol] 12 mmol/L Normal 6 - 16 mEq/L [facility] AST [Catalytic activity/Vol] 15 [iU]/d Normal 5 - 43 Int._Unit/L [facility] Bilirubin [Mass/Vol] 0.4 mg/dL Normal 0.0 - 1 .1 mg/dL [facility] Calcium [Mass/Vol] 8.8 mg/dL Low 8.9 - 11. 1 mg/dL [facility] Chloride [Moles/Vol] 102 mmol/L Normal 101 - 1 11 mmol/L [facility] CO2 [Moles/Vol] 24 mmol/L Normal 21 - 31 mmol/L [facility] Creatinine [Mass/Vol] 0.8 mg/dL Normal 0.5 - 1.3 mg/dL [facility] Ethanol [Mass/Vol] mg/dL Normal <=7mg/dL [facility] R emisol GFR/1.73 sq M.predicted among blacks MDRD (S/P/Bld) [Vol rate/Area] mL/min/1.73 m2 Normal >=59mL/min/ 1.73 m2 [facility] Chem S GFR/1.73 sq M.predicted among non-blacks MDRD (S/P/Bld) [Vol rate/Area] mL/min/1.73 m2 Normal >=59mL/min/ 1.73 m2 [facility] Chem S Globulin (S) [Mass/Vol] 3.5 g/dL Normal 1.4 - 4.0 gm/dL [facility] Glucose [Mass/Vol] 106 mg/dL Normal 55 - 199 mg/dL [facility] Potassium [Moles/Vol] 3.6 mmol/L Normal 3.5 - 5.3 mmol/L [facility] Protein [Mass/Vol] 7.2 g/dL Normal 6.0 - 7.8 gm/dL [facility] Sodium [Moles/Vol] 134 mmol/L Low 135 - 145 mmol/L [facility] Urea nitrogen [Mass/Vol] 13 mg/dL Normal 5 - 21 mg/dL [facility] Urea nitrogen/Creatinine [Mass ratio] 16 mg/mg Normal 10 - 20 [facility] Amphetamines Screen method >1000 ng/mL Ql (U) Negative (08/22/21 10:45 PM) Normal Negative [facility] Barbiturates Screen Ql (U) Negative (08/22/21 10:45 PM) Normal Negative [facility] Benzodiazepines Ql (U) Negative (08/22/21 10:45 PM) Normal Negative [facility] Cocaine Ql (U) Negative (08/22/21 10:45 PM) Normal Negative [facility] Opiates Screen Ql (U) Negative (08/22/21 10:45 PM) Normal Negative [facility] Phencyclidine Screen method >25 ng/mL Ql (U) Negative (08/22/21 10:45 PM) Normal Negative [facility] Tetrahydrocannabinol Screen method >50 ng/mL Ql (U) Negative (08/22/21 10:45 PM) Normal Negative [facility] HEMATOLOGYOrdered By: SYSTEM SYSTEM on 08-22-2021 Basophils/100 WBC (Bld) 0.6 % Normal 0.0 - 2.0 % [facility]eAutoSS Basophils/Leukocytes Auto (Bld) [Pure # fraction] 0.0 E9/L Normal 0.0 - 0.2 E9/L [facility] Eosinophils/100 WBC (Bld) 4.3 % Normal 0.0 - 8.0 % [facility] Eosinophils/Leukocytes Auto (Bld) [Pure # fraction] 0.3 E9/L Normal 0.0 - 0.5 E9/L [facility] Lymphocytes/100 WBC (Bld) 34.3 % Normal 14.0 - 50.0 % [facility] Lymphocytes/Leukocytes Auto (Bld) [Pure # fraction] 2.8 E9/L Normal 1.0 - 4.0 E9/L [facility] Monocytes/100 WBC (Bld) 7.2 % Normal 4.0 - 14.0 % [facility] Monocytes/Leukocytes Auto (Bld) [Pure # fraction] 0.6 E9/L Normal 0.2 - 1.0 E9/L [facility] Neutrophils/100 WBC (Bld) 53.6 % Normal 36.0 - 75.0 % [facility] Neutrophils/Leukocytes Auto (Bld) [Pure # fraction] 4.4 E9/L Normal 2.0 - 7.5 E9/L [facility] HEMATOLOGYOrdered By: Ele Conn on 08-22-2021 Erythrocyte distribution width (RBC) [Ratio] 15.1 % High 10.9 - 14.2 % [facility] Hematocrit (Bld) [Volume fraction] 35.5 % Normal 34.0 - 46.0 % [facility] Hemoglobin (Bld) [Mass/Vol] 11.9 g/dL Low 12.0 - 16.0 gm/dL [facility] MCH (RBC) [Entitic mass] 27.0 pg Normal 27.0 - 34.0 pg [facility] MCHC (RBC) [Mass/Vol] 33.6 g/dL Normal 31.4 - 36.0 gm/dL [facility] MCV (RBC) [Entitic vol] 80.3 fL Normal 80.0 - 100.0 fL [facility] Platelet mean volume (Bld) [Entitic vol] 7.6 fL Normal 6.4 - 10.8 fL [facility] Platelets (Bld) [#/Vol] 374.0 E9/L Normal 150. 0 - 500.0 E9/L [facility] RBC (Bld) [#/Vol] 4.4 E12/L Normal 4.3 - 5.9 E12/L [facility] WBC corrected for nucl RBC Auto (Bld) [#/Vol] 8.1 E9/L Normal 4.0 - 11.0 E9/L [facility] MICRO OTHER TESTSOrdered By: Rosa Conn on 08-22-2021 Rapid COV Int NEG Ctl Pass (08/22/21 10:44 PM) Normal [facility] Man Sero Rapid COV Int POS Ctl Pass (08/22/21 10:44 PM) Normal [facility] Man Sero SARS-CoV+SARS-CoV-2 (COVID-19) Ag IA.rapid Ql (Resp) Not Detected (08/22/21 10:44 PM) Normal Not Detected [facility] Man Sero SEROLOGYOrdered By: Rosa Conn on 08-22-2021 HCG.beta subunit (U) [Moles/Vol] Negative Normal [facility] ACETAMINOPHENon 08-15-2021 Acetaminophen [Mass/Vol] ug/mL Critically low 10.0-30.0 [facility] Comment on above: Performed By: #### S ALYC, ACET, CMP #### [facility] [address] [place] [address] Dr. Bob Avitia CBC AUTO DIFFon 08-15-2021 BASO # 0.0 103/ul Normal 0.0-0.1 [facility] Comment on above: Performed By: #### A CET, CMP, SALYC #### [facility] [address] [place] [address] Dr. Bob Avitia Basophils/100 WBC (Bld) 0.3 % Normal 0.2-2.0 [facility] Comment on above: Performed By: #### A CET, CMP, SALYC #### [facility] [facility] [address] [place] [address] Dr. Bob Avitia EO # 0.3 103/ul Normal 0.0-0.7 [facility] Comment on above: Performed By: #### A CET, CMP, SALYC #### [facility] [address] [place] [address] Dr. Bob Avitia Eosinophils/100 WBC (Bld) 3.4 % Normal 0.9-7.0 [facility] Comment on above: Performed By: #### A CET, CMP, SALYC #### [facility] [address] [place] [address] Dr. Bob Avitia Erythrocyte distribution width (RBC) [Ratio] 13.6 % Normal 11.0-15.0 [facility] Comment on above: Performed By: #### A CET, CMP, SALYC #### [facility] [address] [place] [address] Dr. Bob Avitia Hematocrit (Bld) [Volume fraction] 35.7 % Critically low 36.0-48.0 [facility] Comment on above: Performed By: #### A CET, CMP, SALYC #### [facility] [address] [place] [address] Dr. Bob Avitia Hemoglobin (Bld) [Mass/Vol] 11.2 g/dL Critically low 12.0-16.0 [facility] Comment on above: Performed By: #### A CET, CMP, SALYC #### [facility] [address] [place] [address] Dr. Bob Avitia IG # 0.04 10e3/ul Critically high 0.00-0.03 [facility] Comment on above: Performed By: #### A CET, CMP, SALYC #### [facility] [address] [address] [address] Bob Avitia IG % 0.6 % Critically high 0.0-0.5 [facility] Comment on above: Performed By: #### A CET, CMP, SALYC #### [facility] [address] [place] [address] Dr. Bob Avitia LYMPH # 2.0 103/ul Normal 1.2-3.8 [facility] Comment on above: Performed By: #### A CET, CMP, SALYC #### [facility] [address] [place] [address] Dr. Bob Avitia Lymphocytes/100 WBC (Bld) 27.2 % Normal 20.5-60.0 [facility] Comment on above: Performed By: #### A CET, CMP, SALYC #### [facility] [address] [place] [address] Dr. Bob Avitia MANUAL DIFF REQ NO Normal [facility] Comment on above: Performed By: #### A CET, CMP, SALYC #### [facility] [address] [place] [address] Dr. Bob Avitia MCH (RBC) [Entitic mass] 26.8 pg Normal 26.7-34.0 [facility] Comment on above: Performed By: #### A CET, CMP, SALYC #### [facility] [address] [place] [address] Dr. Bob Avitia MCHC (RBC) [Mass/Vol] 31.4 g/dL Normal 29.9-35.2 [facility] Comment on above: Performed By: #### A CET, CMP, SALYC #### [facility] [address] [place] [address] Dr. Bob Avitia MCV (RBC) [Entitic vol] 85.4 fL Normal 81.0-99.0 [facility] Comment on above: Performed By: #### A CET, CMP, SALYC #### [facility] [address] [place] [address] Dr. Bob Avitia MONO # 0.5 103/ul Normal 0.3-0.8 [facility] Comment on above: Performed By: #### A CET, CMP, SALYC #### [facility] [address] [place] [address] Dr. Bob Avitia Monocytes/100 WBC (Bld) 7.0 % Normal 1.7-12.0 [facility] Comment on above: Performed By: #### A CET, CMP, SALYC #### [facility] [address] [place] [address] Dr. Bob Avitia NEUT # 4.5 103/ul Normal 1.4-6.5 [facility] Comment on above: Performed By: #### A CET, CMP, SALYC #### [facility] [address] [place] [address] Dr. Bob Avitia Neutrophils/100 WBC (Bld) 61.5 % Normal 43.0-75.0 [facility] Comment on above: Performed By: #### A CET, CMP, SALYC #### [facility] [address] [place] [address] Dr. Bob Avitia Platelet mean volume (Bld) [Entitic vol] 9.5 fL Normal 9.5-13.5 [facility] Comment on above: Performed By: #### A CET, CMP, SALYC #### [facility] [address] [place] [address] Dr. Bob Avitia PLT 330 103/ul Normal 150-450 [facility] Comment on above: Performed By: #### A CET, CMP, SALYC #### [facility] [address] [place] [address] Dr. Bob Avitia RBC 4.18 106/ul Critically low 4.20-5.40 [facility] Comment on above: Performed By: #### A CET, CMP, SALYC #### [facility] [address] [place] [address] Dr. Bob Avitia WBC 7.3 103/ul Normal 4.0-11.0 [facility] Comment on above: Performed By: #### A CET, CMP, SALYC #### [facility] [address] [place], [place] [address] Dr. Bob Avitia CULTURE URINEon 08-15-2021 CULTURE URINE Culture Observations : LIGHT GROWTH OF MIXED GENITAL JOSE. NO POTENTIAL PATHOGENS SEEN. Normal [facility] Comment on above: Performed By: #### C MP #### [facility] [address] [address] [address] Bob Avitia Cholesterol [Mass/volume] in Serum or PlasmaOrdered By: Miguelangel Zhou on 08-15-2021 Cholesterol [Mass/Vol] 178 mg/dL 140-200 [facility] Comment on above: Chol less than 200 m g/dl low risk Chol 201-239 mg/dl borderline risk Chol 240 mg/dl and greater high risk Cholesterol in LDL Calc [Mas s/Vol]Ordered By: Miguelangel Zhou on 08-15-2021 Cholesterol in LDL [Mass/Vol] 113 mg/dL 0-100 [facility] Comment on above: LDL ATP III CLASSIFI CATION LDL less than 100 mg/dL Optimal LDL 100-129 mg/dL Near or above optimal LDL 130-159 mg/dL Borderline high LDL 160-189 mg/dL High LDL greater than 189 mg/dL Very high Cholesterol in VLDL Calc [Ma ss/Vol]Ordered By: Miguelangel Zhou on 08-15-2021 Cholesterol in VLDL [Mass/Vol] 19 mg/dL [facility] Covid-19 PCR (CVDTBH)on 08-01 SARS-CoV-2 (COVID-19) RNA CHANTEL+probe Ql (Unsp spec) Not detected Normal NOT DETECTED [facility] Comment on above: Result Comment: When diagnostic testing is negative, the possibility of a false negative should be considered in the context of a patient's recent exposures and the presence of clinical signs and symptoms consistent with SARS-CoV-2. This test is not yet approved or cleared by the [place] FDA. When there are no FDA-approved or cleared tests available, and other criteria are met, FDA can make tests available under an emergency access mechanism called an Emergency Use Authorization (EUA). The EUA for this test is supported by the [place] of Health and Human Service's declaration that circumstances exist to justify the emergency use of in vitro diagnostics for the detection and/or diagnosis of the virus that causes COVID-19. This EUA will remain in effect for the duration of the COVID-19 declaration justifying emergency of IVDs, unless it is terminated or revoked by the FDA (after which the test may no longer be used). Performed By: #### C VDTBH #### [facility] [address] [place] [address] Dr. Bob Avitia DRUG SCREEN RAPID (URINE)on 08-15-2021 AMP Negative Normal NEGATIVE [facility] Comment on above: Performed By: #### A CET, CMP, SALYC #### [facility] [address] [place] [address] Dr. Bob Avitia BAR Negative Normal NEGATIVE [facility] Comment on above: Performed By: #### A CET, CMP, SALYC #### [facility] [address] [place] [address] Dr. Bob Avitia BUP Negative Normal NEGATIVE [facility] Comment on above: Performed By: #### A CET, CMP, SALYC #### [facility] [address] [place] [address] Dr. Bob Avitia BZO Negative Normal NEGATIVE [facility] Comment on above: Performed By: #### A CET, CMP, SALYC #### [facility] [address] [place] [address] Dr. Bob Avitia CYNTHIA Negative Normal NEGATIVE [facility] Comment on above: Performed By: #### A CET, CMP, SALYC #### [facility] [address] [place] [address] Dr. Bob Avitia CUT-OFFS SEE BELOW Normal [facility] Comment on above: Result Comment: AMP (Amphetamine): 500ng/mL, BAR (Barbituates): 200 ng/mL, BZO (Benzodiazepines): 150 ng/mL, BUP (Buprenorphine): 10 ng/mL, CYNTHIA (Cocaine): 150 ng/mL, mAMP (Methamphetamine): 500 ng/mL, MTD (Methadone): 200 ng/mL, OPI (Opiates): 100 ng/mL, OXY (Oxycodone): 100 ng/mL, PCP (Phencyclidine): 25 ng/mL, PPX (Propoxyphene): 300 ng/mL, THC (Cannabinoids): 50 ng/mL, TCA (Trycyclic Antidepressants): 300 ng/mL Performed By: #### A CET, CMP, SALYC #### [facility] [address] [place] [address] Dr. Bob Avitia DRUG CUT HEADER DRUG CLASS TEST SYSTEM CUT-OFF CONCENTRATIONS ARE FOLLOWS: Normal [facility] Comment on above: Performed By: #### A CET, CMP, SALYC #### [facility] [address] [place] [address] Dr. Bob Avitia mAMP Negative Normal NEGATIVE [facility] Comment on above: Performed By: #### A CET, CMP, SALYC #### [facility] [address] [place] [address] Dr. Bob Avitia MTD Negative Normal NEGATIVE [facility] Comment on above: Performed By: #### A CET, CMP, SALYC #### [facility] [address] [place] [address] Dr. Bob Avitia OPI Negative Normal NEGATIVE [facility] Comment on above: Performed By: #### A CET, CMP, SALYC #### [facility] [address] [place] [address] Dr. Bob Avitia OXY Negative Normal NEGATIVE [facility] Comment on above: Performed By: #### A CET, CMP, SALYC #### [facility] [address] [place] [address] Dr. Bob Avitia PCP Negative Normal NEGATIVE [facility] Comment on above: Performed By: #### A CET, CMP, SALYC #### [facility] [address] [place] [address] Dr. Bob Avitia PPX Negative Normal NEGATIVE [facility] Comment on above: Performed By: #### A CET, CMP, SALYC #### [facility] [address] [place] [address] Dr. Bob Avitia TCA Negative Normal NEGATIVE [facility] Comment on above: Performed By: #### A CET, CMP, SALYC #### [facility] [address] [place] [address] Dr. Bob Avitia THC Negative Normal NEGATIVE [facility] Comment on above: Performed By: #### A CET, CMP, SALYC #### [facility] [address] [place] [address] Dr. Bob Avitia ER URINE PROFILEon 2 Bilirubin Ql (U) Negative Normal NEGATIVE [facility] Comment on above: Performed By: #### A CET, CMP, SALYC #### [facility] [address] [address] [address] Bob Avitia Clarity (U) CLEAR Normal CLEAR [facility] Comment on above: Performed By: #### A CET, CMP, SALYC #### [facility] [address] [place] [address] Dr. Bob Avitia Color (U) LT. YELLOW Normal YELLOW [facility] Comment on above: Performed By: #### A CET, CMP, SALYC #### [facility] [address] [place] [address] Dr. Bob MENDEZ A micrscopic examination will be performed if indicated. Normal [facility] Comment on above: Performed By: #### A CET, CMP, SALYC #### [facility] [address] [place] [address] Dr. Bob Avitia Glucose Ql (U) Negative Normal NEGATIVE [facility] Comment on above: Performed By: #### A CET, CMP, SALYC #### [facility] [address] [place] [address] Dr. Bob Avitia Hemoglobin Ql (U) TRACE-INTACT Abnormal NEGATIVE [facility] Comment on above: Performed By: #### A CET, CMP, SALYC #### [facility] [address] [address] [address] Bob Avitia Ketones Ql (U) Negative Normal NEGATIVE [facility] Comment on above: Performed By: #### A CET, CMP, SALYC #### [facility] [address] [place] [address] Dr. Bob Avitia LEUKOCYTES LARGE Abnormal NEGATIVE [facility] Comment on above: Performed By: #### A CET, CMP, SALYC #### [facility] [address] [address] [address] Bob Avitia Nitrite Ql (U) Negative Normal NEGATIVE [facility] Comment on above: Performed By: #### A CET, CMP, SALYC #### [facility] [address] [address] [address] Bob Avitia pH (U) 6.0 [pH] Normal 5-9 [facility] Comment on above: Performed By: #### A CET, CMP, SALYC #### [facility] [address] [address] [address] Bob Avitia SPEC GRAVITY 1.020 Normal 1.005-<=1.[address] [place] [address] Comment on above: Performed By: #### A CET, CMP, SALYC #### [facility] [address] [address] [address] Bob Avitia UA PROTEIN Negative Normal NEGATIVE/ TRACE [facility] Comment on above: Performed By: #### A CET, CMP, SALYC #### [facility] [address] [address] [address] Bob Avitia UR MICRO IND INDICATED Normal [facility] Comment on above: Performed By: #### A CET, CMP, SALYC #### [facility] [address] [place] [address] Dr. Bob Avitia Urobilinogen Qn (U) 0.2 {Sandee'U}/dL Normal 0.2 - 1. 0 [facility] Comment on above: Performed By: #### A CET, CMP, SALYC #### [facility] [address] [address] [address] Bob Avitia No Panel InformationOrdered By: Miguelangel Zhou on 08-15-2021 25-Hydroxy Vitamin D Total 19.5 ng/mL 30-100 [facility] Comment on above: VITAMIN D STATUS 25( [place])VITAMIN D RANGE (ng/mL) Deficient <20 Insufficient 20 to <30 Sufficient 30 to 100 Reference: Tiago MF,Sarah NC, Neha FARIAS, et al. Evaluation,treatment, and prevention of vitamin D deficiency; an Endocrine Society clinical practice guideline. JCEM. 2010; 96(7):1911-30. PROF 14(COMP METB)on 022 Albumin [Mass/Vol] 3.3 g/dL Critically low 3.4-5.0 [facility] Comment on above: Performed By: #### S ALYC, ACET, CMP #### [facility] [address] [address] [address] Bob Avitia Albumin/Globulin [Mass ratio] 1.0 {ratio} Normal [facility] Comment on above: Performed By: #### S ALYC, ACET, CMP #### [facility] [address] [address] [address] Bob Avitia ALP [Catalytic activity/Vol] 81 U/L Normal 46-116 [facility] Comment on above: Performed By: #### S ALYC, ACET, CMP #### [facility] [address] [address] [address] Bob Avitia ALT [Catalytic activity/Vol] 25 U/L Normal 14-59 [facility] Comment on above: Performed By: #### S ALYC, ACET, CMP #### [facility] [address] [address] [address] Bob Avitia Anion gap [Moles/Vol] 10.4 mmol/L Normal [facility] Comment on above: Performed By: #### S ALYC, ACET, CMP #### [facility] [address] [address] [address] Bob Avitia AST [Catalytic activity/Vol] 13 U/L Critically low 15-37 [facility] Comment on above: Performed By: #### S ALYC, ACET, CMP #### [facility] [address] [address] [address] Bob Avitia Bilirubin [Mass/Vol] 0.2 mg/dL Normal 0.2-1.0 [facility] Comment on above: Performed By: #### S ALYC, ACET, CMP #### [facility] [address] [address] [address] Bob Avitia Calcium [Mass/Vol] 8.7 mg/dL Normal 8.5-10.1 [facility] Comment on above: Performed By: #### S ALYC, ACET, CMP #### [facility] [address] [address] [address] Bob Avitia Chloride [Moles/Vol] 105 mmol/L Normal 98-107 [facility] Comment on above: Performed By: #### S ALYC, ACET, CMP #### [facility] [address] [place] [address] Dr. Bob Avitia CO2 [Moles/Vol] 28.9 mmol/L Normal 21.0-32.0 [facility] Comment on above: Performed By: #### S ALYC ACET, CMP #### [facility] [address] [place] [address] Dr. Bob Avitia Creatinine [Mass/Vol] 0.67 mg/dL Normal 0.55-1.02 [facility] Comment on above: Performed By: #### S ALYC ACET, CMP #### [facility] [address] [place] [address] Dr. Bob Avitia EGFR-AF [place] >60 Normal >=60 [facility] Comment on above: Performed By: #### S ALYC ACET, CMP #### [facility] [address] [place] [address] Dr. Bob Avitia EGFR-NON AF [place] >60 Normal >=60 [facility] Comment on above: Performed By: #### S ALYC, ACET, CMP #### [facility] [address] [place] [address] Dr. Bob Avitia Globulin (S) [Mass/Vol] 3.4 g/dL Normal [facility] Comment on above: Performed By: #### S ALYC, ACET, CMP #### [facility] [address] [place] [address] Dr. Bob Avitia Glucose [Mass/Vol] 100 mg/dL Normal 74-106 [facility] Comment on above: Performed By: #### S ALYC, ACET, CMP #### [facility] [address] [place] [address] Dr. Bob Avitia Potassium [Moles/Vol] 4.3 mmol/L Normal 3.5-5.1 [facility] Comment on above: Performed By: #### S ALJANETH ACET, CMP #### [facility] [address] [address] [address] Bob Avitia Protein [Mass/Vol] 6.7 g/dL Normal 6.4-8.2 [facility] Comment on above: Performed By: #### S ALJANETH ACET, CMP #### [facility] [address] [address] [address] Bob Avitia Sodium [Moles/Vol] 140 mmol/L Normal 136-145 [facility] Comment on above: Performed By: #### S ALJANETH ACET, CMP #### [facility] [address] [address] [address] Bob Avitia Urea nitrogen [Mass/Vol] 9.0 mg/dL Normal 7.0-18.0 [facility] Comment on above: Performed By: #### S ALYC, ACET, CMP #### [facility] [address] [address] [address] Bob Avitia Urea nitrogen/Creatinine [Mass ratio] 13.4 mg/mg Normal [facility] Comment on above: Performed By: #### S ALYC ACET, CMP #### [facility] [address] [address] [address] Bob Avitia SALICYLATEon 08-15-2021 SALICYLATE <2.8 Normal <=19.9 [facility] Comment on above: Performed By: #### S ALYC, ACET, CMP #### [facility] [address] [address] [address] Bob Avitia Serum or plasma high density lipoprotein (HDL) cholesterol measurementOrdered By: Miguelangel Zhou on 08-15-2021 Cholesterol in HDL [Mass/Vol] 45 mg/dL 35-85 [facility] Comment on above: HDL CHOL ATP-III CLA SSIFICATION Cardiovascular Risk HDL > or equal to 60 mg/dL LOW HDL < 40 mg/dL HIGH Serum or plasma total choles terol/high density lipoprotein (HDL) cholesterol mass ratOrdered By: Miguelangel Abelardo on 08-15-2021 Cholesterol.total/Audelia sterol in HDL [Mass ratio] 4.0 {ratio} <5.0 [facility] TSH DL <= 0.005 mIU/L QnOrde red By: Miguelangel Zhou on 08-15-2021 TSH Qn 1.88 m[IU]/L 0.45-5.33 [facility] Triglyceride [Mass/volume] i n Serum or PlasmaOrdered By: Miguelangel Abelardo on 08-15-2021 Triglyceride [Mass/Vol] 98 mg/dL 35-149 [facility] Comment on above: TRIG ATP III CLASSIF ICATION TRIG less than 150 mg/dL Normal TRIG 150-199 mg/dL Borderline high TRIG 200-500 mg/dL High TRIG greater than 500 mg/dL Very high Standard traceable to the Center for Disease Conrtrol and Prevention (CDC) test method. URINE MICROSCOPIC ONLYon BACTERIA SMALL Abnormal NONE SEEN [facility] Comment on above: Performed By: #### A CET, CMP, SALYC #### [facility] [address] [place] [address] Dr. Bob Avitia Bacteria identified Cx Nom (U) INDICATED Normal [facility] Comment on above: Performed By: #### A CET, CMP, SALYC #### [facility] [address] [address] [address] Bob Avitia CAST NONE SEEN Normal NONE SEEN [facility] Comment on above: Performed By: #### A CET, CMP, SALYC #### [facility] [address] [address] [address] Bob Avitia Crystals LM Nom (Urine sed) NONE SEEN Normal NONE SEEN [facility] Comment on above: Performed By: #### A CET, CMP, SALYC #### [facility] [address] [address] [address] Bob Avitia Epithelial cells LM Ql (Urine sed) MANY Abnormal NONE SEEN /RARE [facility] Comment on above: Performed By: #### A CET, CMP, SALYC #### [facility] [address] [address] [address] Bob Avitia MUCOUS NONE SEEN Normal NONE SEEN [facility] Comment on above: Performed By: #### A CET, CMP, SALYC #### [facility] [address] [place] [address] Dr. Bob Avitia RBC 0-2 Normal 0-2 [facility] Comment on above: Performed By: #### A CET, CMP, SALYC #### [facility] [address] [place] [address] Dr. Bob Avitia WBC 10-20 Abnormal NONE SEEN [facility] Comment on above: Performed By: #### A CET, CMP, SALYC #### [facility] [address] [place] [address] Dr. Bob Avitia CBC AUTO DIFFon 08-14-2021 BASO # 0.0 103/ul Normal 0.0-0.1 [facility] Comment on above: Performed By: #### A CET, CMP, SALYC #### [facility] [address] [place] [address] Dr. Bob Avitia Basophils/100 WBC (Bld) 0.3 % Normal 0.2-2.0 [facility] Comment on above: Performed By: #### A CET, CMP, SALYC #### [facility] [address] [place] [address] Dr. Bob Avitia EO # 0.1 103/ul Normal 0.0-0.7 [facility] Comment on above: Performed By: #### A CET, CMP, SALYC #### [facility] [address] [place] [address] Dr. Bob Avitia Eosinophils/100 WBC (Bld) 1.4 % Normal 0.9-7.0 [facility] Comment on above: Performed By: #### A CET, CMP, SALYC #### [facility] [address] [place] [address] Dr. Bob Avitia Erythrocyte distribution width (RBC) [Ratio] 13.7 % Normal 11.0-15.0 [facility] Comment on above: Performed By: #### A CET, CMP, SALYC #### [facility] [address] [address] [address] Bob Avitia Hematocrit (Bld) [Volume fraction] 36.4 % Normal 36.0-48.0 [facility] Comment on above: Performed By: #### A CET, CMP, SALYC #### [facility] [address] [address] [address] Bob Avitia Hemoglobin (Bld) [Mass/Vol] 11.1 g/dL Critically low 12.0-16.0 [facility] Comment on above: Performed By: #### A CET, CMP, SALYC #### [facility] [address] [place] [address] Dr. Bob Avitia IG # 0.05 10e3/ul Critically high 0.00-0.03 [facility] Comment on above: Performed By: #### A CET, CMP, SALYC #### [facility] [address] [place] [address] Dr. Bob Avitia IG % 0.7 % Critically high 0.0-0.5 [facility] Comment on above: Performed By: #### A CET, CMP, SALYC #### [facility] [address] [place] [address] Dr. Bob Avitia LYMPH # 2.2 103/ul Normal 1.2-3.8 [facility] Comment on above: Performed By: #### A CET, CMP, SALYC #### [facility] [address] [place] [address] Dr. Bob Avitia Lymphocytes/100 WBC (Bld) 31.8 % Normal 20.5-60.0 [facility] Comment on above: Performed By: #### A CET, CMP, SALYC #### [facility] [address] [address] [address] Bob Avitia MANUAL DIFF REQ NO Normal [facility] Comment on above: Performed By: #### A CET, CMP, SALYC #### [facility] [address] [place] [address] Dr. Bob Avitia MCH (RBC) [Entitic mass] 26.3 pg Critically low 26.7-34.0 [facility] Comment on above: Performed By: #### A CET, CMP, SALYC #### [facility] [address] [place] [address] Dr. Bob Avitia MCHC (RBC) [Mass/Vol] 30.5 g/dL Normal 29.9-35.2 [facility] Comment on above: Performed By: #### A CET, CMP, SALYC #### [facility] [address] [place] [address] Dr. Bob Avitia MCV (RBC) [Entitic vol] 86.3 fL Normal 81.0-99.0 [facility] Comment on above: Performed By: #### A CET, CMP, SALYC #### [facility] [address] [place] [address] Dr. Bob Avitia MONO # 0.5 103/ul Normal 0.3-0.8 [facility] Comment on above: Performed By: #### A CET, CMP, SALYC #### [facility] [address] [place] [address] Dr. Bob Avitia Monocytes/100 WBC (Bld) 6.6 % Normal 1.7-12.0 [facility] Comment on above: Performed By: #### A CET, CMP, SALYC #### [facility] [address] [place] [address] Dr. Bob Avitia NEUT # 4.1 103/ul Normal 1.4-6.5 [facility] Comment on above: Performed By: #### A CET, CMP, SALYC #### [facility] [address] [place] [address] Dr. Bob Avitia Neutrophils/100 WBC (Bld) 59.2 % Normal 43.0-75.0 [facility] Comment on above: Performed By: #### A CET, CMP, SALYC #### [facility] [address] [place] [address] Dr. Bob Avitia Platelet mean volume (Bld) [Entitic vol] 9.3 fL Critically low 9.5-13.5 [facility] Comment on above: Performed By: #### A CET, CMP, SALYC #### [facility] [address] [address] [address] Bob Avitia PLT 328 103/ul Normal 150-450 [facility] Comment on above: Performed By: #### A CET, CMP, SALYC #### [facility] [address] [address] [address] Bob Avitia RBC 4.22 106/ul Normal 4.20-5.40 [facility] Comment on above: Performed By: #### A CET, CMP, SALYC #### [facility] [address] [place] [address] Dr. Bob Avitia WBC 6.9 103/ul Normal 4.0-11.0 [facility] Comment on above: Performed By: #### A CET, CMP, SALYC #### [facility] [address] [place] [address] Dr. Bob Avitia PROF CHEM 8 (BAS METB)on Anion gap [Moles/Vol] 10.1 mmol/L Normal [facility] Comment on above: Performed By: #### C MP #### [facility] [address] [place] [address] Dr. Bob Avitia Calcium [Mass/Vol] 8.4 mg/dL Critically low 8.5-10.1 [facility] Comment on above: Performed By: #### C MP #### [facility] [address] [place] [address] Dr. Bob Avitia Chloride [Moles/Vol] 103 mmol/L Normal 98-107 [facility] Comment on above: Performed By: #### C MP #### [facility] [address] [place] [address] Dr. Bob Avitia CO2 [Moles/Vol] 27.7 mmol/L Normal 21.0-32.0 [facility] Comment on above: Performed By: #### C MP #### [facility] [address] [place] [address] Dr. Bob Avitia Creatinine [Mass/Vol] 0.84 mg/dL Normal 0.55-1.02 [facility] Comment on above: Performed By: #### C MP #### [facility] [address] [address] [address] Bob Avitia EGFR-AF [place] >60 Normal >=60 [facility] Comment on above: Performed By: #### C MP #### [facility] [address] [address] [address] Bob Avitia EGFR-NON AF [place] >60 Normal >=60 [facility] Comment on above: Performed By: #### C MP #### [facility] [address] [address] [address] Bob Avitia Glucose [Mass/Vol] 99 mg/dL Normal 74-106 [facility] Comment on above: Performed By: #### C MP #### [facility] [address] [address] [address] Bob Avitia Potassium [Moles/Vol] 3.8 mmol/L Normal 3.5-5.1 [facility] Comment on above: Performed By: #### C MP #### [facility] [address] [address] [address] Bob Avitia Sodium [Moles/Vol] 137 mmol/L Normal 136-145 [facility] Comment on above: Performed By: #### C MP #### [facility] [address] [address] [address] Bob Avitia Urea nitrogen [Mass/Vol] 10.0 mg/dL Normal 7.0-18.0 [facility] Comment on above: Performed By: #### C MP #### [facility] [address] [address] [address] Bob Avitia Urea nitrogen/Creatinine [Mass ratio] 11.9 mg/mg Normal [facility] Comment on above: Performed By: #### C MP #### [facility] [address] [address] [address] Bob Avitia MICRO OTHER TESTSOrdered By: Lacy Rosario on 08-07-2021 Rapid COV Int NEG Ctl Pass (08/07/21 3:34 PM) Normal [facility] Sero Rapid COV Int POS Ctl Pass (08/07/21 3:34 PM) Normal [facility] SARS-CoV+SARS-CoV-2 (COVID-19) Ag IA.rapid Ql (Resp) Not Detected (08/07/21 3:34 PM) Normal Not Detected [facility] MICRO OTHER TESTSOrdered By: Lexi Cline on 07-25-2021 Influenzae A Ag Negative (07/25/21 1:45 PM) Normal Negative [facility] Influenzae B Ag Negative (07/25/21 1:45 PM) Normal Negative [facility] Rapid COV Int NEG Ctl Pass (07/25/21 1:45 PM) Normal [facility] Rapid COV Int POS Ctl Pass (07/25/21 1:45 PM) Normal [facility] Sero SARS-CoV+SARS-CoV-2 (COVID-19) Ag IA.rapid Ql (Resp) Not Detected (07/25/21 1:45 PM) Normal Not Detected [facility] Sero Vitamin D 25 OHon 07-15-2021 Vitamin D 25 [place] 14.9 ng/mL Low >29.9 [facility] Comment on above: Result Comment: Reference Range: Vitamin D status Range Deficiency <20 ng/mL Mild Deficiency 20-30 ng/mL Sufficiency 30-100 ng/mL Toxicity >100 ng/mL [id number] [place] [address] ([phone] CBC With Platelet No Differe ntialon 07-14-2021 Erythrocyte distribution width (RBC) [Ratio] 15.7 % Critically high 11.5-14.5 [facility] Comment on above: Performed By: #### C BCND #### [facility] [address] [place] [address] Hematocrit (Bld) [Volume fraction] 33.1 % Low 37.0-47.0 [facility] Comment on above: Performed By: #### C BCND #### [facility] [address] [place] [address] Hemoglobin (Bld) [Mass/Vol] 10.7 g/dL Low 12.0-16.0 [facility] Comment on above: Performed By: #### C BCND #### [facility] [address] [place] [address] MCH (RBC) [Entitic mass] 26.5 pg Low 27.0-31.3 [facility] Comment on above: Performed By: #### C BCND #### [facility] [address] [place] [address] MCHC 32.5 % Low 33.0-37.0 [facility] Comment on above: Performed By: #### C BCND #### [facility] [address] [place] [address] MCV (RBC) [Entitic vol] 81.6 fL Low 82.0-100.0 [facility] Comment on above: Performed By: #### C BCND #### [facility] [address] [place] [address] Platelets (Bld) [#/Vol] 340 10*3/uL Normal 130-400 [facility] Comment on above: Performed By: #### C BCND #### [facility] [address] [place] [address] RBC (Bld) [#/Vol] 4.06 10*6/uL Low 4.20-5.40 [facility] Comment on above: Performed By: #### C BCND #### [facility] [address] [place] [address] WBC (Bld) [#/Vol] 4.4 10*3/uL Low 4.8-10.8 [facility] Comment on above: Performed By: #### C BCND #### [facility] [address] [place] [address] Comprehensive Metabolic Pane nelli 07-14-2021 Albumin [Mass/Vol] 3.4 g/dL Low 3.5-4.6 [facility] Comment on above: Performed By: #### C MP #### [facility] [address] [place] [address] ALP [Catalytic activity/Vol] 73 U/L Normal 40-130 [facility] Comment on above: Performed By: #### C MP #### [facility] [address] [place] [address] ALT [Catalytic activity/Vol] 16 U/L Normal 0-33 [facility] Comment on above: Performed By: #### C MP #### [facility] [address] [place] [address] Anion gap [Moles/Vol] 11 mmol/L Normal 9-15 [facility] Comment on above: Performed By: #### C MP #### [facility] [address] [place] [address] AST [Catalytic activity/Vol] 15 U/L Normal 0-35 [facility] Comment on above: Performed By: #### C MP #### [facility] [address] [place] [address] Bilirubin [Mass/Vol] mg/dL Normal 0.2-0.7 [facility] Comment on above: Performed By: #### C MP #### [facility] [address] [place] [address] Calcium [Mass/Vol] 8.3 mg/dL Low 8.5-9.9 [facility] Comment on above: Performed By: #### C MP #### [facility] [address] [place] [address] Chloride [Moles/Vol] 103 mmol/L Normal 95-[address] [facility] Comment on above: Performed By: #### C MP #### [facility] [address] [place] [address] CO2 [Moles/Vol] 24 mmol/L Normal 20-31 [facility] Comment on above: Performed By: #### C MP #### [facility] [address] [place] [address] Creatinine [Mass/Vol] 0.56 mg/dL Normal 0.50-0.90 [facility] Comment on above: Performed By: #### C MP #### [facility] [address] [place] [address] GFR >60.0 Normal >60 [facility] Comment on above: Result Comment: >60 mL/min/1.73m2 EGFR, calc. for ages 18 and older using the MDRD formula (not corrected for weight), is valid for stable renal function. Performed By: #### C MP #### [facility] [address] [place] [address] GFR/1.73 sq M.predicted among blacks MDRD (S/P/Bld) [Vol rate/Area] mL/min/{1.73_m2} Normal >60 [facility] Comment on above: Result Comment: >60 mL/min/1.73m2 EGFR, calc. for ages 18 and older using the MDRD formula (not corrected for weight), is valid for stable renal function. Performed By: #### C MP #### [facility] [address] [place] [address] Globulin (S) [Mass/Vol] 2.5 g/dL Normal 2.3-3.5 [facility] Comment on above: Performed By: #### C MP #### [facility] [address] [place] [address] Glucose [Mass/Vol] 91 mg/dL Normal 70-99 [facility] Comment on above: Performed By: #### C MP #### [facility] [address] [place] [address] Potassium [Moles/Vol] 3.8 mmol/L Normal 3.4-4.9 [facility] Comment on above: Performed By: #### C MP #### [facility] [address] [place] [address] Protein [Mass/Vol] 5.9 g/dL Low 6.3-8.0 [facility] Comment on above: Performed By: #### C MP #### [facility] [address] [place] [address] Sodium [Moles/Vol] 138 mmol/L Normal 135-144 [facility] Comment on above: Performed By: #### C MP #### [facility] [address] [place] [address] Urea nitrogen [Mass/Vol] 8 mg/dL Normal 6-20 [facility] Comment on above: Performed By: #### C MP #### [facility] [address] [place] [address] Lipid Panelon 07-14-2021 Cholesterol [Mass/Vol] 193 mg/dL Normal 0-199 [facility] Comment on above: Result Comment: ATP III Cholesterol classification is Desirable. Performed By: #### L IPID #### [facility] [address] [place] [address] Cholesterol in HDL [Mass/Vol] 45 mg/dL Normal 40-59 [facility] Comment on above: Result Comment: ATP III HDL Cholesterol Classification is Desirable. Expected Values: Males: >55 = No Risk 35-55 = Moderate Risk <35 = High Risk Females: >65 = No Risk 45-65 = Moderate Risk <45 = High Risk NCEP Guidelines: Third Report July 2000 >59 = negative risk factor for CHD <40 = major risk factor for CHD Performed By: #### L IPID #### [facility] [address] [place] [address] Cholesterol in LDL [Mass/Vol] 131 mg/dL Critically high 0-129 [facility] Comment on above: Result Comment: ATT III Classification is Borderline High. Performed By: #### L IPID #### [facility] [address] [place] [address] Triglyceride [Mass/Vol] 86 mg/dL Normal 0-150 [facility] Comment on above: Result Comment: ATP III Triglycerides Classification is Normal. Performed By: #### L IPID #### [facility] [address] [place] [address] TSH w/out Reflexon TSH w/out Reflex 1.430 uIU/mL Normal 0.440-3.86 [facility] Comment on above: Performed By: #### T SH #### [facility] [address] [place] [address] UR Drugs of Abuse Panelon Drug Screen Comment see below Normal [facility] Comment on above: Result Comment: This method is a screening test to detect only these drug classes as part of a medical workup. Confirmatory testing by another method should be ordered if clinically indicated. Performed By: #### U DRGS #### [facility] [address] [place] [address] UR Amphetamines Screen Negative Normal Negative < [facility] Comment on above: Performed By: #### U DRGS #### [facility] [address] [place] [address] UR Barbiturates Screen Negative Normal Negative < [facility] Comment on above: Performed By: #### U DRGS #### [facility] [address] [place] [address] UR Benzo Screen Negative Normal Negative < [facility] Comment on above: Performed By: #### U DRGS #### [facility] [address] [place] [address] UR Cannabinoids Screen Negative Normal Negative < [facility] Comment on above: Performed By: #### U DRGS #### [facility] [address] [place] [address] UR Cocaine Screen Negative Normal Negative < [facility] Comment on above: Performed By: #### U DRGS #### [facility] [address] [place] [address] UR Methadone Screen Negative Normal Negative < [facility] Comment on above: Performed By: #### U DRGS #### [facility] [address] [place] [address] UR Opiates Screen Negative Normal Negative < [facility] Comment on above: Performed By: #### U DRGS #### [facility] [address] [place] [address] UR Oxycodone Screen Negative Normal Negative < [facility] Comment on above: Performed By: #### U DRGS #### [facility] [address] [place] [address] UR PCP Screen Negative Normal Negative < [facility] Comment on above: Performed By: #### U DRGS #### [facility] [address] [place] [address] UR Propoxyphene Screen Negative Normal Negative < [facility] Comment on above: Performed By: #### U DRGS #### [facility] [address] [place] [address] UR HCG Qualitativeon 022 Beta HCG ( test) Ql (U) Negative [facility] Comment on above: Performed By: #### U HCG #### [facility] [address] [place] [address] MICRO OTHER TESTSOrdered By: Rosa Conn on 07-04-2021 Influenzae A Ag Negative (07/04/21 11:31 PM) Normal Negative [facility] Man Sero Influenzae B Ag Negative (07/04/21 11:31 PM) Normal Negative [facility] Man Sero Rapid COV Int NEG Ctl Pass (07/04/21 11:31 PM) Normal [facility] Man Sero Rapid COV Int POS Ctl Pass (07/04/21 11:31 PM) Normal [facility] Sero SARS-CoV+SARS-CoV-2 (COVID-19) Ag IA.rapid Ql (Resp) Not Detected (07/04/21 11:31 PM) Normal Not Detected [facility] Sero Hemoglobin A1con 07-25-2020 HbA1c (Bld) [Mass fraction] 5.8 % Normal 4.8-5.9 [facility] Comment on above: Performed By: #### A 1C #### [facility] [address] [place] [address] Lipid Panelon 07-25-2020 Cholesterol [Mass/Vol] 168 mg/dL Normal 0-199 [facility] Comment on above: Result Comment: ATP III Cholesterol classification is Desirable. Performed By: #### L IPID #### [facility] [address] [place] [address] Cholesterol in HDL [Mass/Vol] 35 mg/dL Low 40-59 [facility] Comment on above: Result Comment: ATP III HDL Cholestrol Classification is low. Expected Values: Males: >55 = No Risk 35-55 = Moderate Risk <35 = High Risk Females: >65 = No Risk 45-65 = Moderate Risk <45 = High Risk NCEP Guidelines: Third Report July 2000 >59 = negative risk factor for CHD <40 = major risk factor for CHD Performed By: #### L IPID #### [facility] [address] [place] [address] Cholesterol in LDL [Mass/Vol] 116 mg/dL Normal 0-129 [facility] Comment on above: Result Comment: ATP III LDL Classification is Near Optimal. Performed By: #### L IPID #### [facility] [address] [place] [address] Triglyceride [Mass/Vol] 84 mg/dL Normal 0-150 [facility] Comment on above: Result Comment: ATP III Triglycerides Classification is Normal. Performed By: #### L IPID #### [facility] [address] [place] [address] TSH w/out Reflexon 1 TSH w/out Reflex 1.160 uIU/mL Normal 0.440-3.86 [facility] Comment on above: Performed By: #### T SH #### [facility] [address] [place] [address] Vitamin B12 and Folateon Cobalamin (Vitamin B12) [Mass/Vol] 373 pg/mL Normal 232-1245 [facility] Comment on above: Performed By: #### B 12FO #### [facility] [address] [place] [address] Folate >20.0 Normal 7.3-26.1 [facility] Comment on above: Result Comment: As o f 15, the methodology has changed. Results from this methodology should not be compared with results from previous methodology. Performed By: #### B 12FO #### [facility] [address] [place] [address] Vitamin Don 07-25-2020 Vitamin D 24.0 ng/mL Low 30.0-100.0 [facility] Comment on above: Result Comment: (20- 30 ng/mL) Insufficiency This assay accurately quantifies the sum of vitamin D3, 25-Hydroxy and vitamin D2, 25-Hyroxy. Performed By: #### V ITD #### [facility] [address] [place] [address] HCG, Quanton 05-23-2020 HCG, Quant <1 Normal <5 [facility] Comment on above: Result Comment: Non-preg premeno <=5 Postmeno <=8 Male <=3 If HCG results do not concur with clinical observations, additional testing to confirm results is recommended. Elevated results not associated with may be found in patients with other diseases such as tumors of the germ cells (testis, ovaries, etc.), bladder, pancreas, stomach, lungs, and liver. Performed By: #### B HCG #### [facility] [id number] Manager Cash: Karson Mayers MD hCG, Quantitative, on 05-23-2020 hCG Quant <1 <5 IU/L [employer] Phone: Comment on above: Non-preg premeno <=5 Postmeno <=8 Male <=3 If HCG results do not concur with clinical observations, additional testing to confirm results is recommended. Elevated results not associated with may be found in patients with other diseases such as tumors of the germ cells (testis, ovaries, etc.), bladder, pancreas, stomach, lungs, and liver. Acetaminophen LevelOrdered B y: Quintin Corona on 03-04-2019 Acetaminophen Level < 5.0 0 - 20 ug/mL [employer] Phone: Comment on above: Performed at [facility] [address] [place] [address] Anion GapOrdered By: Quintin Corona on 03-04-2019 Anion gap [Moles/Vol] 11.0 mmol/L 8 - 16 meq/L [employer] Phone: Comment on above: ANION GAP = Sodium - (Chloride + CO2) Performed at [facility] [address] [place] [address] Basic Metabolic PanelOrdered By: Quintin Corona on 03-04-2019 Calcium [Mass/Vol] 9.2 mg/dL 8.5 - 10. 5 mg/dL [employer] Phone: Comment on above: Performed at [facility] [address] [place] [address] Chloride [Moles/Vol] 104 mmol/L 98 - 11 1 meq/L [employer] Phone: CO2 [Moles/Vol] 23 mmol/L 23 - 33 meq/L [employer] Phone: Creatinine [Mass/Vol] 0.8 mg/dL 0.4 - 1.2 mg/dL [employer] Phone: Glucose [Mass/Vol] 100 mg/dL 70 - 108 mg/dL [employer] Phone: Potassium [Moles/Vol] 4.4 mmol/L 3.5 - 5.2 meq/L [employer] Phone: Sodium [Moles/Vol] 138 mmol/L 135 - 145 meq/L [employer] Phone: Urea nitrogen [Mass/Vol] 11 mg/dL 7 - 22 mg/dL [employer] Phone: Bile Acids, TotalOrdered By: Quintin Mcadams on 03-04-2019 Ictotest Negative NEGATIVE [employer] Phone: Comment on above: Performed at [facility] [address] [place], [place] [id number] CBC auto differentialOrdered By: Quintin Corona on 03-04-2019 Basophils (Bld) [#/Vol] 0.0 10*3/uL [employer] Work Phone: Basophils/100 WBC (Bld) 0.5 % [facility] [employer] Work Phone: Eosinophils Absolute 0.0 [facility] [employer] Work Phone: Eosinophils/100 WBC (Bld) 0.6 % [facility] [employer] Work Phone: Erythrocyte distribution width (RBC) [Ratio] 15 % High 11.5 - 14.5 % [facility] [employer] Work Phone: Hematocrit (Bld) [Volume fraction] 39.2 % 37 - 47 % [facility] [employer] Work Phone: Hemoglobin (Bld) [Mass/Vol] 11.9 g/dL Low [facility] [employer] Work Phone: Immature Grans (Abs) 0.04 [facility] [employer] Work Phone: Immature granulocytes/100 WBC (Bld) 0.6 % [facility] [employer] Phone: Interpretation and review of laboratory results Abnormal [facility] [employer] Work Phone: Lymphocytes Absolute 1.4 [facility] [employer] Work Phone: Lymphocytes/100 WBC (Bld) 22.6 % [facility] [employer] Work Phone: MCH (RBC) [Entitic mass] 26.4 pg 26 - 33 pg [facility] [employer] Work Phone: MCHC (RBC) [Mass/Vol] 30.4 g/dL Low [facility] [employer] Work Phone: MCV (RBC) [Entitic vol] 87.1 fL 81 - 99 fL [facility] [employer] Work Phone: Monocytes Absolute 0.4 [facility] [employer] Work Phone: Monocytes/100 WBC (Bld) 6.5 % [facility] [employer] Work Phone: nRBC 0 /100 wbc [facility] [employer] Work Phone: Comment on above: Performed at [facility] [address] [place] [id number] Platelet mean volume (Bld) [Entitic vol] 9.7 fL 9.4 - 12.4 fL [employer] Work Phone: Platelets (Bld) [#/Vol] 362 10*3/uL [employer] Phone: RBC (Bld) [#/Vol] 4.50 10*6/uL [employer] Work Phone: RDW-SD 47.3 fL High 35 - 45 fL [employer] Work Phone: Segmented neutrophils/100 WBC (Bld) 69.2 % [employer] Work Phone: Segs Absolute 4.4 [employer] Work Phone: WBC (Bld) [#/Vol] 6.3 10*3/uL [employer] Phone: EthanolOrdered By: Quintin Corona on 03-04-2019 ETHYL ALCOHOL, SERUM < 0.01 0.00 % [employer] Phone: Comment on above: Performed at [facility] [address] [place] [address] Glomerular Filtration Rate, EstimatedOrdered By: Quintin Corona on 03-04-2019 Est, Glom Filt Rate 79 Abnormal ml/min/1 .73 m2 [employer] Phone: Comment on above: Stage Description GF R, ml/min/1.73 m2 - At increased risk > or = 60 (with chronic kidney disease risk factors) 1 Normal or increased GFR > or = 90 2 Mildly or decreased GFR 60 - 89 3 Moderately decreased GFR 30 - 59 4 Severely decreased GFR 15 - 29 5 Kidney failure <15 (or dialysis) Estimated GFR calculated using abbreviated MDRD formula as recommended by National Kidney Foundation. Calculation based upon serum creatinine and adjusted for age, gender & race. Jazz. Internal Med., Vol. 139 (2) pg 137-147. Performed at [facility] [address] [place] [address] Hepatic Function PanelOrdere d By: Quintin Corona on 03-04-2019 Albumin [Mass/Vol] 4.2 g/dL 3.5 - 5.1 g/dL [employer] Work Phone: ALP [Catalytic activity/Vol] 87 U/L 38 - 126 U/L [employer] Work Phone: ALT [Catalytic activity/Vol] 12 U/L 11 - 66 U/L [employer] Work Phone: AST [Catalytic activity/Vol] 15 U/L 5 - 40 U/L [employer] Work Phone: Bilirubin [Mass/Vol] mg/dL Low 0.3 - 1 .2 mg/dL [employer] Work Phone: Bilirubin.indirect [Mass/Vol] mg/dL 0 - 0.3 mg/dL [employer] Work Phone: Protein [Mass/Vol] 7.0 g/dL 6.1 - 8 g/dL [employer] Work Phone: Comment on above: Performed at [facility] [address] [place] [address] No Panel InformationOrdered By: Quintin Corona on 03-04-2019 Interpretation and review of laboratory results Abnormal [employer] Work Phone: OsmolalityOrdered By: Quintin Corona on 03-04-2019 Osmolality Calc 275.2 [facility] Work Phone: Comment on above: Performed at [facility] [address] [place] [address] SPECIMEN REJECTIONOrdered By : Quintin Corona on 03-04-2019 Reason for Rejection see below [employer] Work Phone: Comment on above: Unable to perform te sting;Specimen was Hemolyzed Performed at [facility] [address] [place] [address] Rejected Test bmp,heppa,etoh [facility] [employer] Work Phone: SalicylateOrdered By: Quintin Corona on 03-04-2019 Salicylate, Serum < 0.3 Low 2 - 10 mg/dL [employer] Work Phone: Comment on above: Performed at [facility] [address] [place] [address] Urine Drug ScreenOrdered By: Quintin Corona on 03-04-2019 AMPHETAMINE+METHAMPHETA MINE URINE SCREEN Positive NEGATIVE [facility] Work Phone: Barbiturate Quant, Ur Negative NEGATIVE [facility] Work Phone: Benzodiazepine Quant, Ur Negative NEGATIVE [facility] Work Phone: Cannabinoid Quant, Ur Negative NEGATIVE [facility] Work Phone: Cocaine Metab Quant, Ur Negative NEGATIVE [facility] Work Phone: Opiates, Urine Negative NEGATIVE [facility] Work Phone: Oxycodone Negative NEGATIVE [facility] Work Phone: PCP Quant, Ur Negative NEGATIVE [facility] Work Phone: Comment on above: A Negative result for a drug abuse screen test indicates that the drug concentration is below the following cutoffs: Amphetamine/Methamphetamine 1000 ng/ml Barbiturate 200 ng/ml Benzodiazapine 200 ng/ml Cannabinoids 50 ng/ml Cocaine Metabolite 300 ng/ml Opiates 300 ng/ml Oxycodone 100 ng/ml Phencyclidine 25 ng/ml A Positive result for a drug abuse screen test should be considered presumptive positive until/unless confirmed by another method. (Additional request) Quantitative values from a reference laboratory are available upon additional request. These results are for medical use only. Performed at [facility] [address] [place] [address] Urine reflex to cultureOrder ed By: Quintin Corona on 03-04-2019 Bilirubin Urine SMALL Abnormal NEGATIVE [facility] Work Phone: Blood, Urine Negative NEGATIVE [facility] Work Phone: Character, Urine SLCLOUDY CLEAR-SL C [facility] Work Phone: Comment on above: Performed at [facility] [address] [place] [id number] Color, UA YELLOW STRAW-YELL [facility] Work Phone: Glucose, Ur Negative NEGATIVE mg/dl [facility] Work Phone: Interpretation and review of laboratory results Abnormal [facility] Work Phone: Ketones Ql (U) TRACE Abnormal NEGATIVE [facility] Work Phone: Leukocyte esterase Test strip Ql (U) Negative NEGATIVE [facility] Work Phone: Nitrite, Urine Negative NEGATIVE [facility] Work Phone: pH, UA 6.0 [facility] Work Phone: Protein, UA Negative NEGATIVE [facility] Work Phone: Specific [place], Urine >= 1.030 [facility] [employer] Phone: Urobilinogen, Urine 0.2 [facility] Work Phone: Acetaminophen levelon 2018 Acetaminophen [Mass/Vol] < 5.0 0 - 20 ug/mL [place] Comment on above: Performed at [facility] [address] [place] [address] Anion Gapon 12-03-2018 Anion gap [Moles/Vol] 12.0 mmol/L 8 - 16 meq/L [place] Comment on above: ANION GAP = Sodium - (Chloride + CO2) Performed at [facility] [address] [place] [address] CBC Auto Differentialon Basophils (Bld) [#/Vol] 0.0 10*3/uL [place] Basophils/100 WBC (Bld) 0.4 % [place] Eosinophils (Bld) [#/Vol] 0.1 10*3/uL [place] Eosinophils/100 WBC (Bld) 1.3 % [place] Erythrocyte distribution width (RBC) [Ratio] 13.7 % 11.5 - 14.5 % [place] Hematocrit (Bld) [Volume fraction] 37.3 % 37 - 47 % [place] Hemoglobin (Bld) [Mass/Vol] 11.4 g/dL [place] Immature Grans (Abs) 0.02 [place] Immature granulocytes (Bld) [#/Vol] 0.4 % [place] Interpretation and review of laboratory results Abnormal [place] Lymphocytes (Bld) [#/Vol] 1.3 10*3/uL [place] Lymphocytes/100 WBC (Bld) 27.8 % [place] MCH (RBC) [Entitic mass] 26.1 pg 26 - 33 pg [place] MCHC (RBC) [Mass/Vol] 30.6 g/dL [place] MCV (RBC) [Entitic vol] 85.4 fL 81 - 99 fL [place] Monocytes (Bld) [#/Vol] 0.3 10*3/uL [place] Monocytes/100 WBC (Bld) 6.6 % [place] Nucleated RBC/100 WBC (Bld) [Ratio] 0 % /100 wbc [place] Comment on above: Performed at [facility] [address] [place] [address] Platelet mean volume (Bld) [Entitic vol] 9.3 fL Low 9.4 - 12.4 fL [place] Platelets (Bld) [#/Vol] 409 10*3/uL [place] RBC (Bld) [#/Vol] 4.37 10*6/uL [place] RDW-SD 42.5 fL 35 - 45 fL [place] Segmented neutrophils/100 WBC (Bld) 63.5 % [place] Segs Absolute 3.0 [place] WBC (Bld) [#/Vol] 4.7 10*3/uL [place] Comprehensive Metabolic Pane nelli 12-03-2018 Albumin [Mass/Vol] 4.3 g/dL 3.5 - 5.1 g/dL [place] ALP [Catalytic activity/Vol] 66 U/L 38 - 126 U/L [place] ALT [Catalytic activity/Vol] 10 U/L Low 11 - 66 U/L [place] Comment on above: Performed at [facility] [address] [place] [address] AST [Catalytic activity/Vol] 11 U/L 5 - 40 U/L [place] Bilirubin Ql (U) 0.2 mg/dL Low 0.3 - 1.2 mg/dL [place] Calcium [Mass/Vol] 9.4 mg/dL 8.5 - 10. 5 mg/dL [place] Chloride [Moles/Vol] 101 mmol/L 98 - 11 1 meq/L [place] CO2 [Moles/Vol] 25 mmol/L 23 - 33 meq/L [place] Creatinine [Mass/Vol] 0.8 mg/dL 0.4 - 1.2 mg/dL [place] Glucose [Mass/Vol] 90 mg/dL 70 - 108 mg/dL [place] Potassium [Moles/Vol] 4.4 mmol/L 3.5 - 5.2 meq/L [place] Protein [Mass/Vol] 7.3 g/dL 6.1 - 8 g/dL [place] Sodium [Moles/Vol] 138 mmol/L 135 - 145 meq/L [place] Urea nitrogen [Mass/Vol] 12 mg/dL 7 - 22 mg/dL [place] Ethanolon 12-03-2018 ETHYL ALCOHOL, SERUM < 0.01 0.00 % [place] Comment on above: Performed at [facility] [address] [place] [address] Glomerular Filtration Rate, Estimatedon 12-03-2018 Est, Glom Filt Rate 79 Abnormal ml/min/1 .73 m2 [place] Comment on above: Stage Description GF R, ml/min/1.73 m2 - At increased risk > or = 60 (with chronic kidney disease risk factors) 1 Normal or increased GFR > or = 90 2 Mildly or decreased GFR 60 - 89 3 Moderately decreased GFR 30 - 59 4 Severely decreased GFR 15 - 29 5 Kidney failure <15 (or dialysis) Estimated GFR calculated using abbreviated MDRD formula as recommended by National Kidney Foundation. Calculation based upon serum creatinine and adjusted for age, gender & race. Jazz. Internal Med., Vol. 139 (2) pg 137-147. Performed at [facility] [address] [place] [address] HCG Qualitative, Serumon Preg, Serum Negative NEGATIVE [place] Comment on above: Performed at [facility] [address] [place] [address] Osmolalityon 12-03-2018 Osmolality Calc 275.0 [facility] [place] Comment on above: Performed at [facility] [address] [place] [address] Otheron 12-03-2018 Interpretation and review of laboratory results Abnormal [place] Salicylate Levelon 9 Salicylate, Serum < 0.3 Low 2 - 10 mg/dL [place] Comment on above: Performed at [facility] [address] [place] [address] TSH without Reflexon 019 TSH Qn 3.050 m[IU]/L [place] Comment on above: Performed at [facility] [address] [place] [address] Hematologyon 11-19-2018 Basophils (Bld) [#/Vol] 0.0 10*3/uL [place] Basophils/100 WBC (Bld) 0.4 % [place] Eosinophils (Bld) [#/Vol] 0.0 10*3/uL [place] Eosinophils/100 WBC (Bld) 1 % [place] Hematocrit (Bld) [Volume fraction] 34.8 % Low 37 - 47 % [place] Hemoglobin (Bld) [Mass/Vol] 10.8 g/dL [place] Lymphocytes (Bld) [#/Vol] 1.4 10*3/uL [place] Lymphocytes/100 WBC (Bld) 28.8 % [place] MCH (RBC) [Entitic mass] 26.9 pg 26 - 33 pg [place] MCV (RBC) [Entitic vol] 86.6 fL 81 - 99 fL [place] Monocytes (Bld) [#/Vol] 0.4 10*3/uL [place] Monocytes/100 WBC (Bld) 8.5 % [place] Platelets (Bld) [#/Vol] 320 10*3/uL [place] RBC (Bld) [#/Vol] 4.02 10*6/uL [place] WBC (Bld) [#/Vol] 4.8 10*3/uL [place] Metabolic Panelon 11-19-2018 Albumin [Mass/Vol] 4.1 g/dL 3.5 - 5.1 g/dL [place] ALP [Catalytic activity/Vol] 63 U/L 38 - 126 U/L [place] ALT [Catalytic activity/Vol] 10 U/L Low 11 - 66 U/L [place] Anion gap [Moles/Vol] 11.0 mmol/L 8 - 16 meq/L [place] Comment on above: ANION GAP = Sodium - (Chloride + CO2) Performed at [facility] [address] [place] [address] AST [Catalytic activity/Vol] 9 U/L 5 - 40 U/L [place] Bilirubin.direct [Mass/Vol] mg/dL 0 - 0.3 mg/dL [place] Calcium [Mass/Vol] 9.4 mg/dL 8.5 - 10. 5 mg/dL [place] Comment on above: Performed at [facility] [address] [place] [address] Chloride [Moles/Vol] 104 mmol/L 98 - 11 1 meq/L [place] CO2 [Moles/Vol] 23 mmol/L 23 - 33 meq/L [place] Creatinine [Mass/Vol] 0.7 mg/dL 0.4 - 1.2 mg/dL [place] Glucose [Mass/Vol] 94 mg/dL 70 - 108 mg/dL [place], [place] Potassium [Moles/Vol] 4.4 mmol/L 3.5 - 5.2 meq/L [place] Protein [Mass/Vol] 6.9 g/dL 6.1 - 8 g/dL [place], [place] Comment on above: Performed at [facility] [address] [place] [address] Sodium [Moles/Vol] 138 mmol/L 135 - 145 meq/L [place] Urea nitrogen [Mass/Vol] 16 mg/dL 7 - 22 mg/dL [place] Otheron 11-19-2018 Bacteria, UA NONE FEW/NONE S /hpf [place] Bilirubin Urine Negative NEGATIVE [place] Blood, Urine Negative NEGATIVE [place], [place] CASTS 2 NONE SEEN NONE SEEN /lpf [place] Casts UA 4-8 HYALINE NONE SEEN /lpf [place] Character, Urine CLOUDY Abnormal CLEAR-SL C [place], [place] Color, UA YELLOW STRAW-YELL [place], [place] Epi Cells 5-10 3-5/hpf /hpf [place], [place] Glucose, Ur Negative NEGATIVE mg/dl [place], [place] Interpretation and review of laboratory results Abnormal [place] MISCELLANEOUS 2 NONE [place] Comment on above: Performed at [facility] [address] [place] [address] Nitrite, Urine Negative NEGATIVE [place] pH, UA 5.5 [place], [place] RBC (U) [#/Vol] 5-10 0-2/hpf /hpf [place] Renal Epithelial, Urine NONE SEEN NONE SEEN [place] Specific [place], Urine 1.017 [place] Urobilinogen, Urine 0.2 [place], [place] WBC, UA 2-4 0-4/hpf /hpf [place], [place] Yeast, UA NONE SEEN NONE SEEN [place] AMPHETAMINE+METHAMPHETA MINE URINE SCREEN Negative NEGATIVE [place], [place] Barbiturate Quant, Ur Negative NEGATIVE [place] Benzodiazepine Quant, Ur Negative NEGATIVE [place] Cannabinoid Quant, Ur Negative NEGATIVE [place] Cocaine Metab Quant, Ur Negative NEGATIVE [place] Opiates, Urine Negative NEGATIVE [place] Oxycodone Negative NEGATIVE [place] PCP Quant, Ur Negative NEGATIVE [place] Comment on above: A Negative result for a drug abuse screen test indicates that the drug concentration is below the following cutoffs: Amphetamine/Methamphetamine 1000 ng/ml Barbiturate 200 ng/ml Benzodiazapine 200 ng/ml Cannabinoids 50 ng/ml Cocaine Metabolite 300 ng/ml Opiates 300 ng/ml Oxycodone 100 ng/ml Phencyclidine 25 ng/ml A Positive result for a drug abuse screen test should be considered presumptive positive until/unless confirmed by another method. (Additional request) Quantitative values from a reference laboratory are available upon additional request. These results are for medical use only. [place] [address] Acetaminophen [Mass/Vol] < 5.0 0 - 20 ug/mL [place], [place] Comment on above: [place] [address] Bilirubin Ql (U) <0.2 Low 0.3 - 1.2 mg/dL [place] Est, Glom Filt Rate >90 ml/min/1 .73 m2 [place], [place] Comment on above: Stage Description GF R, ml/min/1.73 m2 - At increased risk > or = 60 (with chronic kidney disease risk factors) 1 Normal or increased GFR > or = 90 2 Mildly or decreased GFR 60 - 89 3 Moderately decreased GFR 30 - 59 4 Severely decreased GFR 15 - 29 5 Kidney failure <15 (or dialysis) Estimated GFR calculated using abbreviated MDRD formula as recommended by National Kidney Foundation. Calculation based upon serum creatinine and adjusted for age, gender & race. Jazz. Internal Med., Vol. 139 (2) pg 137-147. Performed at [facility] [address] [place] [address] ETHYL ALCOHOL, SERUM < 0.01 0.00 % [place], [place] Comment on above: [place] [address] Interpretation and review of laboratory results Abnormal [place] Lipase [Catalytic activity/Vol] 36.2 U/L 5.6 - 51.3 U/L [place] Comment on above: Performed at [facility] [address] [place] [address] Osmolality Calc 276.6 [facility] [place], [place] Comment on above: Performed at [facility] [address] [place] [address] Salicylate, Serum < 0.3 Low 2 - 10 mg/dL [place], [place] Comment on above: Performed at [facility] [address] [place] [address] Preg, Serum Negative NEGATIVE [place], [place] Comment on above: Performed at [facility] [address] [place] [address] Erythrocyte distribution width (RBC) [Ratio] 13.9 % 11.5 - 14.5 % [place] Immature Grans (Abs) 0.01 [place], [place] Immature granulocytes (Bld) [#/Vol] 0 % [place] Interpretation and review of laboratory results Abnormal [place] MCHC (RBC) [Mass/Vol] 31.0 g/dL [place] Nucleated RBC/100 WBC (Bld) [Ratio] 0 % /100 wbc [place], [place] Comment on above: Performed at [facility] [address] [place] [address] Platelet mean volume (Bld) [Entitic vol] 9.5 fL 9.4 - 12.4 fL [place] RDW-SD 43.2 fL 35 - 45 fL [place], [place] Segmented neutrophils/100 WBC (Bld) 61.1 % [place] Segs Absolute 2.9 [place], [place] Thyroidon 11-19-2018 TSH Qn 1.510 m[IU]/L [place], [place] Comment on above: Performed at [facility] [address] [place] [address] Urinalysison 11-19-2018 Crystals LM Nom (Urine sed) NONE SEEN NONE SEEN [place] Ketones Ql (U) Negative NEGATIVE [place] Leukocyte esterase Test strip Ql (U) TRACE Abnormal NEGATIVE [place] Protein (U) [Mass/Vol] Negative NEGATIVE [place] Hematologyon 11-16-2018 Basophils (Bld) [#/Vol] 0.0 10*3/uL [place], [place] Basophils/100 WBC (Bld) 0.6 % [place] Eosinophils (Bld) [#/Vol] 0.1 10*3/uL [place] Eosinophils/100 WBC (Bld) 1.2 % [place] Hematocrit (Bld) [Volume fraction] 36.2 % Low 37 - 47 % [place] Hemoglobin (Bld) [Mass/Vol] 11.1 g/dL [place] Lymphocytes (Bld) [#/Vol] 1.6 10*3/uL [place] Lymphocytes/100 WBC (Bld) 31.5 % [place] MCH (RBC) [Entitic mass] 26.7 pg 26 - 33 pg [place] MCV (RBC) [Entitic vol] 87.0 fL 81 - 99 fL [place], [place] Monocytes (Bld) [#/Vol] 0.4 10*3/uL [place], [place] Monocytes/100 WBC (Bld) 7.1 % [place] Platelets (Bld) [#/Vol] 349 10*3/uL [place] RBC (Bld) [#/Vol] 4.16 10*6/uL [place] WBC (Bld) [#/Vol] 5.2 10*3/uL [place] Metabolic Panelon 11-16-2018 Albumin [Mass/Vol] 4.1 g/dL 3.5 - 5.1 g/dL [place] ALP [Catalytic activity/Vol] 67 U/L 38 - 126 U/L [place] ALT [Catalytic activity/Vol] 11 U/L 11 - 66 U/L [place] Anion gap [Moles/Vol] 11.0 mmol/L 8 - 16 meq/L [place], [place] Comment on above: ANION GAP = Sodium - (Chloride + CO2) Performed at [facility] [address] [place] [address] AST [Catalytic activity/Vol] 12 U/L 5 - 40 U/L [place] Bilirubin.direct [Mass/Vol] mg/dL 0 - 0.3 mg/dL [place] Calcium [Mass/Vol] 9.2 mg/dL 8.5 - 10. 5 mg/dL [place] Comment on above: Performed at [facility] [address] [place] [address] Chloride [Moles/Vol] 104 mmol/L 98 - 11 1 meq/L [place] CO2 [Moles/Vol] 23 mmol/L 23 - 33 meq/L [place] Creatinine [Mass/Vol] 0.7 mg/dL 0.4 - 1.2 mg/dL [place] Glucose [Mass/Vol] 96 mg/dL 70 - 108 mg/dL [place], [place] Potassium [Moles/Vol] 4.2 mmol/L 3.5 - 5.2 meq/L [place], [place] Protein [Mass/Vol] 7.4 g/dL 6.1 - 8 g/dL [place], [place] Comment on above: Performed at [facility] [address] [place] [address] Sodium [Moles/Vol] 138 mmol/L 135 - 145 meq/L [place] Urea nitrogen [Mass/Vol] 18 mg/dL 7 - 22 mg/dL [place] Otheron 11-16-2018 Acetaminophen [Mass/Vol] < 5.0 0 - 20 ug/mL [place], [place] Comment on above: Performed at [facility] [address] [place] [address] Bilirubin Ql (U) 0.2 mg/dL Low 0.3 - 1.2 mg/dL [place] Est, Glom Filt Rate >90 ml/min/1 .73 m2 [place] Comment on above: Stage Description GF R, ml/min/1.73 m2 - At increased risk > or = 60 (with chronic kidney disease risk factors) 1 Normal or increased GFR > or = 90 2 Mildly or decreased GFR 60 - 89 3 Moderately decreased GFR 30 - 59 4 Severely decreased GFR 15 - 29 5 Kidney failure <15 (or dialysis) Estimated GFR calculated using abbreviated MDRD formula as recommended by National Kidney Foundation. Calculation based upon serum creatinine and adjusted for age, gender & race. Jazz. Internal Med., Vol. 139 (2) pg 137-147. Performed at [facility] [address] [place] [address] ETHYL ALCOHOL, SERUM < 0.01 0.00 % [place] Comment on above: Performed at [facility] [address] [place] [address] Interpretation and review of laboratory results Abnormal [place] Osmolality Calc 277.4 [facility] [place] Comment on above: Performed at [facility] [address] [place] [address] Salicylate, Serum < 0.3 Low 2 - 10 mg/dL [place], [place] Comment on above: Performed at [facility] [address] [place] [address] Preg, Serum Negative NEGATIVE [place] Comment on above: Performed at [facility] [address] [place] [address] Erythrocyte distribution width (RBC) [Ratio] 14 % 11.5 - 14.5 % [place] Immature Grans (Abs) 0.03 [place] Immature granulocytes (Bld) [#/Vol] 1 % [place] Interpretation and review of laboratory results Abnormal [place] MCHC (RBC) [Mass/Vol] 30.7 g/dL [place] Nucleated RBC/100 WBC (Bld) [Ratio] 0 % /100 wbc [place] Comment on above: Performed at [facility] [address] [place] [address] Platelet mean volume (Bld) [Entitic vol] 9.2 fL Low 9.4 - 12.4 fL [place] RDW-SD 44.4 fL 35 - 45 fL [place] Segmented neutrophils/100 WBC (Bld) 59 % [place] Segs Absolute 3.1 [place] AMPHETAMINE+METHAMPHETA MINE URINE SCREEN Negative NEGATIVE [place] Barbiturate Quant, Ur Negative NEGATIVE [place] Benzodiazepine Quant, Ur Negative NEGATIVE [place] Cannabinoid Quant, Ur Negative NEGATIVE [place], [place] Cocaine Metab Quant, Ur Negative NEGATIVE [place] Opiates, Urine Negative NEGATIVE [place] Oxycodone Negative NEGATIVE [place] PCP Quant, Ur Negative NEGATIVE [place] Comment on above: A Negative result for a drug abuse screen test indicates that the drug concentration is below the following cutoffs: Amphetamine/Methamphetamine 1000 ng/ml Barbiturate 200 ng/ml Benzodiazapine 200 ng/ml Cannabinoids 50 ng/ml Cocaine Metabolite 300 ng/ml Opiates 300 ng/ml Oxycodone 100 ng/ml Phencyclidine 25 ng/ml A Positive result for a drug abuse screen test should be considered presumptive positive until/unless confirmed by another method. (Additional request) Quantitative values from a reference laboratory are available upon additional request. These results are for medical use only. Performed at [facility] [address] [place] [address] Bilirubin Urine Negative NEGATIVE [place] Blood, Urine Negative NEGATIVE [place] Character, Urine CLEAR CLEAR-SL C [place] Comment on above: Performed at [facility] [address] [place] [address] Color, UA YELLOW STRAW-YELL [place] Glucose, Ur Negative NEGATIVE mg/dl [place] Nitrite, Urine Negative NEGATIVE [place] pH, UA 6.5 [place] Specific [place], Urine 1.023 [place] Urobilinogen, Urine 0.2 [place] Thyroidon 11-16-2018 TSH Qn 1.130 m[IU]/L [place] Comment on above: Performed at [facility] [address] [place] [address] Urinalysison 11-16-2018 Ketones Ql (U) Negative NEGATIVE [place] Leukocyte esterase Test strip Ql (U) Negative NEGATIVE [place] Protein (U) [Mass/Vol] Negative NEGATIVE [place] Hematologyon 10-18-2018 Basophils (Bld) [#/Vol] 0.0 10*3/uL [place] Basophils/100 WBC (Bld) 0.3 % [place] Eosinophils (Bld) [#/Vol] 0.1 10*3/uL [place] Eosinophils/100 WBC (Bld) 1.8 % [place] Hematocrit (Bld) [Volume fraction] 33.1 % Low 37 - 47 % [place] Hemoglobin (Bld) [Mass/Vol] 10.0 g/dL [place] Lymphocytes (Bld) [#/Vol] 2.2 10*3/uL [place] Lymphocytes/100 WBC (Bld) 30.3 % [place] MCH (RBC) [Entitic mass] 26.9 pg 26 - 33 pg [place] MCV (RBC) [Entitic vol] 89.0 fL 81 - 99 fL [place], [place] Monocytes (Bld) [#/Vol] 0.5 10*3/uL [place], [place] Monocytes/100 WBC (Bld) 7.4 % [place] Platelets (Bld) [#/Vol] 325 10*3/uL [place] RBC (Bld) [#/Vol] 3.72 10*6/uL [place] WBC (Bld) [#/Vol] 7.1 10*3/uL [place] Metabolic Panelon 10-18-2018 Albumin [Mass/Vol] 3.7 g/dL 3.5 - 5.1 g/dL [place] ALP [Catalytic activity/Vol] 77 U/L 38 - 126 U/L [place] ALT [Catalytic activity/Vol] 12 U/L 11 - 66 U/L [place] Anion gap [Moles/Vol] 13.0 mmol/L 8 - 16 meq/L [place] Comment on above: ANION GAP = Sodium - (Chloride + CO2) Performed at [facility] [address] [place] [phone] AST [Catalytic activity/Vol] 13 U/L 5 - 40 U/L [place] Bilirubin.direct [Mass/Vol] mg/dL 0 - 0.3 mg/dL [place] Calcium [Mass/Vol] 8.9 mg/dL 8.5 - 10. 5 mg/dL [place] Comment on above: Performed at [facility] [address] [place] [address] Chloride [Moles/Vol] 105 mmol/L 98 - 11 1 meq/L [place] CO2 [Moles/Vol] 22 mmol/L Low 23 - 33 meq/L [place] Creatinine [Mass/Vol] 0.7 mg/dL 0.4 - 1.2 mg/dL [place] Glucose [Mass/Vol] 142 mg/dL High 70 - 108 mg/dL [place] Potassium [Moles/Vol] 3.8 mmol/L 3.5 - 5.2 meq/L [place] Protein [Mass/Vol] 6.3 g/dL 6.1 - 8 g/dL [place] Comment on above: Performed at [facility] [address] [place] [address] Sodium [Moles/Vol] 140 mmol/L 135 - 145 meq/L [place] Urea nitrogen [Mass/Vol] 9 mg/dL 7 - 22 mg/dL [place] Otheron 10-18-2018 Acetaminophen [Mass/Vol] < 5.0 0 - 20 ug/mL [place] Comment on above: Performed at [facility] [address] [place] [id number] Bilirubin Ql (U) <0.2 Low 0.3 - 1.2 mg/dL [place], [place] Est, Glom Filt Rate >90 ml/min/1 .73 m2 [place] Comment on above: Stage Description GF R, ml/min/1.73 m2 - At increased risk > or = 60 (with chronic kidney disease risk factors) 1 Normal or increased GFR > or = 90 2 Mildly or decreased GFR 60 - 89 3 Moderately decreased GFR 30 - 59 4 Severely decreased GFR 15 - 29 5 Kidney failure <15 (or dialysis) Estimated GFR calculated using abbreviated MDRD formula as recommended by National Kidney Foundation. Calculation based upon serum creatinine and adjusted for age, gender & race. Jazz. Internal Med., Vol. 139 (2) pg 137-147. Performed at [facility] [address] [place] [address] ETHYL ALCOHOL, SERUM < 0.01 0.00 % [place], [place] Comment on above: Performed at [facility] [address] [place] [address] Interpretation and review of laboratory results Abnormal [place] Osmolality Calc 280.5 [facility] [place], [place] Comment on above: Performed at [facility] [address] [place] [address] Salicylate, Serum < 0.3 Low 2 - 10 mg/dL [place] Comment on above: Performed at [facility] [address] [place] [address] Preg, Serum Negative NEGATIVE [place] Comment on above: Performed at [facility] [address] [place] [address] Erythrocyte distribution width (RBC) [Ratio] 13.6 % 11.5 - 14.5 % [place] Immature Grans (Abs) 0.04 [place], [place] Immature granulocytes (Bld) [#/Vol] 1 % [place] Interpretation and review of laboratory results Abnormal [place] MCHC (RBC) [Mass/Vol] 30.2 g/dL [place] Nucleated RBC/100 WBC (Bld) [Ratio] 0 % /100 wbc [place] Comment on above: Performed at [facility] [address] [place] [address] Platelet mean volume (Bld) [Entitic vol] 9.4 fL 9.4 - 12.4 fL [place] RDW-SD 44 fL 35 - 45 fL [place] Segmented neutrophils/100 WBC (Bld) 59.6 % [place] Segs Absolute 4.2 [place] Otheron 10-17-2018 AMPHETAMINE+METHAMPHETA MINE URINE SCREEN Negative NEGATIVE [place], [place] Barbiturate Quant, Ur Negative NEGATIVE [place] Benzodiazepine Quant, Ur Negative NEGATIVE [place] Cannabinoid Quant, Ur Negative NEGATIVE [place] Cocaine Metab Quant, Ur Negative NEGATIVE [place] Opiates, Urine Negative NEGATIVE [place] Oxycodone Negative NEGATIVE [place], [place] PCP Quant, Ur Negative NEGATIVE [place] Comment on above: A Negative result for a drug abuse screen test indicates that the drug concentration is below the following cutoffs: Amphetamine/Methamphetamine 1000 ng/ml Barbiturate 200 ng/ml Benzodiazapine 200 ng/ml Cannabinoids 50 ng/ml Cocaine Metabolite 300 ng/ml Opiates 300 ng/ml Oxycodone 100 ng/ml Phencyclidine 25 ng/ml A Positive result for a drug abuse screen test should be considered presumptive positive until/unless confirmed by another method. (Additional request) Quantitative values from a reference laboratory are available upon additional request. These results are for medical use only. Performed at [facility] [address] [place] [id number] Hematologyon 10-01-2018 Basophils (Bld) [#/Vol] 0.0 10*3/uL [place] Basophils/100 WBC (Bld) 0.3 % [place] Eosinophils (Bld) [#/Vol] 0.1 10*3/uL [place] Eosinophils/100 WBC (Bld) 1.6 % [place] Hematocrit (Bld) [Volume fraction] 34.7 % Low 37 - 47 % [place] Hemoglobin (Bld) [Mass/Vol] 10.8 g/dL [place] Lymphocytes (Bld) [#/Vol] 1.6 10*3/uL [place] Lymphocytes/100 WBC (Bld) 25.8 % [place] MCH (RBC) [Entitic mass] 26.9 pg 26 - 33 pg [place] MCV (RBC) [Entitic vol] 86.5 fL 81 - 99 fL [place] Monocytes (Bld) [#/Vol] 0.5 10*3/uL [place] Monocytes/100 WBC (Bld) 7.8 % [place] Platelets (Bld) [#/Vol] 376 10*3/uL [place] RBC (Bld) [#/Vol] 4.01 10*6/uL [place] WBC (Bld) [#/Vol] 6.2 10*3/uL [place] Metabolic Panelon 10-01-2018 Albumin [Mass/Vol] 4 g/dL 3.5 - 5.1 g/dL [place] ALP [Catalytic activity/Vol] 66 U/L 38 - 126 U/L [place] ALT [Catalytic activity/Vol] 10 U/L Low 11 - 66 U/L [place] Anion gap [Moles/Vol] 11.0 mmol/L 8 - 16 meq/L [place], [place] Comment on above: ANION GAP = Sodium - (Chloride + CO2) Performed at [facility] [address] [place] [address] AST [Catalytic activity/Vol] 12 U/L 5 - 40 U/L [place] Bilirubin.direct [Mass/Vol] mg/dL 0 - 0.3 mg/dL [place] Calcium [Mass/Vol] 9.0 mg/dL 8.5 - 10. 5 mg/dL [place] Comment on above: Performed at [facility] [address] [place] [address] Chloride [Moles/Vol] 104 mmol/L 98 - 11 1 meq/L [place] CO2 [Moles/Vol] 25 mmol/L 23 - 33 meq/L [place] Creatinine [Mass/Vol] 0.7 mg/dL 0.4 - 1.2 mg/dL [place] Glucose [Mass/Vol] 103 mg/dL 70 - 108 mg/dL [place] Potassium [Moles/Vol] 3.8 mmol/L 3.5 - 5.2 meq/L [place], [place] Protein [Mass/Vol] 7.1 g/dL 6.1 - 8 g/dL [place], [place] Comment on above: Performed at [facility] [address] [place] [address] Sodium [Moles/Vol] 140 mmol/L 135 - 145 meq/L [place] Urea nitrogen [Mass/Vol] 7 mg/dL 7 - 22 mg/dL [place] Otheron 10-01-2018 AMPHETAMINE+METHAMPHETA MINE URINE SCREEN Negative NEGATIVE [place] Barbiturate Quant, Ur Negative NEGAT[place] Benzodiazepine Quant, Ur Negative NEGATIVE [place] Cannabinoid Quant, Ur Negative NEGAT[place] Cocaine Metab Quant, Ur Negative NEGATIVE [place] Opiates, Urine Negative NEGATIVE [place], [place] Oxycodone Negative NEGATIVE [place] PCP Quant, Ur Negative NEGATIVE [place] Comment on above: A Negative result for a drug abuse screen test indicates that the drug concentration is below the following cutoffs: Amphetamine/Methamphetamine 1000 ng/ml Barbiturate 200 ng/ml Benzodiazapine 200 ng/ml Cannabinoids 50 ng/ml Cocaine Metabolite 300 ng/ml Opiates 300 ng/ml Oxycodone 100 ng/ml Phencyclidine 25 ng/ml A Positive result for a drug abuse screen test should be considered presumptive positive until/unless confirmed by another method. (Additional request) Quantitative values from a reference laboratory are available upon additional request. These results are for medical use only. Performed at [facility] [employer] Medical Lab [address] [place] [address] Bacteria, UA NONE FEW/NONE S /hpf [place] Bilirubin Urine Negative NE[place] Blood, Urine LARGE Abnormal NEGATIVE [place], [place] CASTS 2 NONE SEEN NONE SEEN /lpf [place] Casts UA NONE SEEN NONE SEEN /lpf [place] Character, Urine CLOUDY Abnormal CLEAR[place] C [place], [place] Color, UA YELLOW STRAW-YELL [place] Epi Cells 3-5 3-5/hpf /hpf [place], [place] Glucose, Ur Negative NEGATIVE mg/dl [place] Interpretation and review of laboratory results Abnormal [place] MISCELLANEOUS 2 NONE [place] Comment on above: Performed at [facility] [address] [place] [address] Nitrite, Urine Negative NEGATIVE [place] pH, UA 6.0 [place] RBC (U) [#/Vol] /uL 0-2/hpf /hpf [place] Renal Epithelial, Urine NONE SEEN NONE SEEN [place] Specific [place], Urine 1.021 [place] Urobilinogen, Urine 1.0 [place] WBC, UA 0-2 0-4/hpf /hpf [place] Yeast, UA NONE SEEN NONE SEEN [place] Acetaminophen [Mass/Vol] < 5.0 0 - 20 ug/mL [place] Comment on above: Performed at [facility] [facility] [address] [place] [address] Bilirubin Ql (U) 0.2 mg/dL Low 0.3 - 1.2 mg/dL [place], [place] Est, Glom Filt Rate >90 ml/min/1 .73 m2 [place] Comment on above: Stage Description G FR, ml/min/1.73 m2 - At increased risk > or = 60 (with chronic kidney disease risk factors) 1 Normal or increased GFR > or = 90 2 Mildly or decreased GFR 60 - 89 3 Moderately decreased GFR 30 - 59 4 Severely decreased GFR 15 - 29 5 Kidney failure <15 (or dialysis) Estimated GFR calculated using abbreviated MDRD formula as recommended by National Kidney Foundation. Calculation based upon serum creatinine and adjusted for age, gender & race. Jazz. Internal Med., Vol. 139 (2) pg 137-147. Performed at [facility] [employer] Medical Lab [address] [place] [address] Interpretation and review of laboratory results Abnormal [place] Osmolality Calc 277.6 [place] Comment on above: Performed at [facility] [address] [place] [address] 28463 Salicylate, Serum < 0.3 Low 2 - 10 mg/dL [place] Comment on above: Performed at [facility] [facility] [address] [place] [address] 13932 Erythrocyte distribution width (RBC) [Ratio] 13.7 % 11.5 - 14.5 % [place] Immature Grans (Abs) 0.02 [place], [place] Immature granulocytes (Bld) [#/Vol] 0.3 % [place] Interpretation and review of laboratory results Abnormal [place] MCHC (RBC) [Mass/Vol] 31.1 g/dL [place] Nucleated RBC/100 WBC (Bld) [Ratio] 0 % /100 wbc [place] Comment on above: Performed at [facility] [address] [place] [address] Platelet mean volume (Bld) [Entitic vol] 9.2 fL Low 9.4 - 12.4 fL [place] RDW-SD 43 fL 35 - 45 fL [place] Segmented neutrophils/100 WBC (Bld) 64.2 % [place] Segs Absolute 4.0 [place] Urinalysison 10-01-2018 Crystals LM Nom (Urine sed) NONE SEEN NONE SEEN [place] Ketones Ql (U) Negative NEGATIVE [place] Leukocyte esterase Test strip Ql (U) Negative NEGATIVE [place] Protein (U) [Mass/Vol] Negative NEGATIVE [place] Beta HCG ( test) Ql (U) Negative NEGATIVE [place] Comment on above: Performed at [facility] [address] [place] [address] Otheron 09-08-2018 ETHYL ALCOHOL, SERUM < 0.01 0.00 % [place], [place] Comment on above: [place] [address] Preg, Serum Negative NEGATIVE [place], [place] Comment on above: [place] [address] Thyroidon 09-08-2018 TSH Qn 3.730 m[IU]/L [place] Comment on above: Performed at [facility] [address] [place] [address] Metabolic Panelon 09-06-2018 Albumin [Mass/Vol] 4.3 g/dL 3.5 - 5.1 g/dL [place] ALP [Catalytic activity/Vol] 86 U/L 38 - 126 U/L [place] ALT [Catalytic activity/Vol] 11 U/L 11 - 66 U/L [place] Comment on above: Performed at [facility] [address] [place] [address] AST [Catalytic activity/Vol] 11 U/L 5 - 40 U/L [place] Calcium [Mass/Vol] 9.5 mg/dL 8.5 - 10. 5 mg/dL [place] Chloride [Moles/Vol] 99 mmol/L 98 - 11 1 meq/L [place] CO2 [Moles/Vol] 24 mmol/L 23 - 33 meq/L [place] Creatinine [Mass/Vol] 0.7 mg/dL 0.4 - 1.2 mg/dL [place] Glucose [Mass/Vol] 106 mg/dL 70 - 108 mg/dL [place] Potassium [Moles/Vol] 3.8 mmol/L 3.5 - 5.2 meq/L [place] Protein [Mass/Vol] 7.5 g/dL 6.1 - 8 g/dL [place] Sodium [Moles/Vol] 135 mmol/L 135 - 145 meq/L [place] Urea nitrogen [Mass/Vol] 9 mg/dL 7 - 22 mg/dL [place] Otheron 09-06-2018 Bilirubin Ql (U) <0.2 Low 0.3 - 1.2 mg/dL [place] Interpretation and review of laboratory results Abnormal [place] Thyroidon 09-06-2018 TSH Qn 3.150 m[IU]/L [place] Comment on above: Performed at [facility] [address] [place] [address] [facility]acon 08-10-2018 Troponin T.cardiac [Mass/Vol] ug/L ng/ml [place] Comment on above: <0.010 ng/ml Normal > or = 0.010 ng/ml Elevated (99%) Consistent with myocardial damage Cardiac troponin values can be elevated by many disease states in addition to acute ischemia. These include, but are not limited to: chronic renal failure, CHF, CVA, pulmonary embolus, COPD, myocardial trauma/surgery, myocarditis, pericarditis, tachycardia, aortic dissection, amyloidosis, sepsis and strenuous exercise. Serial measurement of troponin is strongly recommended as a first step in determining whether a low level elevation represents an acute or chronic condition. Performed at [facility] [address] [place] [address] Metabolic Panelon 08-10-2018 Magnesium [Mass/Vol] 2.1 mg/dL 1.6 - 2 .4 mg/dL [place] Comment on above: Performed at [facility] [facility] [address] [place] [address] Otheron 08-10-2018 Ictotest Negative NEGATIVE [place] Comment on above: Performed at [facility] [facility] [address] [place] [address] Lipase [Catalytic activity/Vol] 43.2 U/L 5.6 - 51.3 U/L [place], [place] Comment on above: Performed at [facility] [facility] [address] [place] [address] Otheron 08-01-2018 HIV-2 Ab Negative Negative [place], [place] Comment on above: The specimen was non -reactive for HIV-1 and HIV-2 antibodies, and p24 antigen. Based on this non-reactive screen result, further reflexive testing was not indicated and was, therefore, not performed INTERPRETIVE INFORMATION: HIV-1,2 Combo Ag/Ab EIA w/Reflex This assay should not be used for blood donor screening, associated re-entry protocols, or for screening Human Cell, Tissues and Cellular and Tissue-Based Products (HCT/P). Performed by [employer], [address] [place] [address] [id number] [email or web address], Jay Jimenes MD - Lab. Director Performed at [facility]. [facility]. [place], [place] [facility] 07-31-2018 Cholesterol [Mass/Vol] 168 mg/dL 100 - 199 mg/dl [place] Comment on above: <200 Desirable 200 - 239 Borderline High >239 High Cholesterol in HDL [Mass/Vol] 40 mg/dL [place], [place] Comment on above: Refer to General Tigist sigrid for CHOL and TRIG results. HDL CLASSIFICATIONS FOR PATIENTS > 20 YEARS OLD. <40 Undesirable (Major Risk Factor) >60 Protective (Negative Risk Factor) Cholesterol in LDL [Mass/Vol] 107 mg/dL [place] Comment on above: Refer to General Tig[facility] sigrid for CHOL and TRIG results. LDL CLASSIFICATIONS FOR PATIENTS >20 YEARS OLD: Determination Invalid if TRIG >400 <100 Optimal 100 - 129 Near or Above Optimal 130 - 159 Borderline High 160 - 189 High Risk >189 Very High Risk Performed at [facility] [address] [place] [address] Otheron 07-31-2018 Triglyceride, Fasting 105 mg/dl 0 - 19 9 mg/dl [place] Comment on above: <150 Desirable 150 - 199 Borderline High 200 - 499 High >449 Very High Ranges are based upon NCEP/ATP III guidelines. XR Finger Right Routine Min 2von 05-19-2017 XR Finger Right Routine Min 2v [facility] Radiology Department Patient: ROSANGELA MALHOTRA. : 1980 Sex: Lenin Schneider [id number] Location: [place] [address] Unit #: [id number] Ordering Phys: Armen Martel [facility] Exam Date: 05/19/17 Exam: MAIN XR Finger Right Routine Min 2v Result: STUDY: X-RAY - RIGHT HAND, ATTENTION THIRD FINGER REASON FOR EXAM: Pain in third digit, numbness, swelling and stiffness, no specific injury. TECHNIQUE: 3 view(s) of the finger were obtained. COMPARISON: None. FINDINGS: Normal metacarpal. Normal metacarpophalangeal joint. Normal proximal phalanx. Normal middle phalanx. Normal distal phalanx. Normal proximal interphalangeal joint. Normal distal interphalangeal joint. IMPRESSION: Unremarkable x-ray examination of the right third finger. 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 Vital Signs Date Time Vital Sign Value Performing Clinician Facility 02-21-2023 16:25-0500 Body height 132.08 cm Niesha Duffy Other [facility] Other 02-21-2023 16:25-0500 Body mass index (BMI) [Ratio] 46.28 kg/m2 Niesha Duffy Other [facility] Other 02-21-2023 16:25-0500 Body temperature 98.2 [degF] Niesha Duffy Other [facility] Other 02-21-2023 16:25-0500 Body weight 80.74 kg Niesha Duffy Other [facility] Other 02-21-2023 16:25-0500 Respiratory rate 18 /min Niesha Duffy Other [facility] Other 02-21-2023 16:25-0500 SaO2% (BldA) [Mass fraction] 98 % Niesha Duffy Other [facility] Other 02-03-2023 08:30-0500 Diastolic blood pressure 82 mm[Hg] Grant Dos Santos [facility] 02-03-2023 08:30-0500 Heart rate 66 /min Grant Raya [facility] 02-03-2023 08:30-0500 Mean blood pressure 94 mm[Hg] Grant Raya [facility] 02-03-2023 08:30-0500 Respiratory rate 17 /min Grant Summerse [facility] 02-03-2023 08:30-0500 SaO2% (BldA) [Mass fraction] 92 % Grant Summerse [facility] 02-03-2023 08:30-0500 Systolic blood pressure 119 mm[Hg] Grant Summerse [facility] 02-03-2023 08:00-0500 Diastolic blood pressure 83 mm[Hg] Grant Summerse [facility] 02-03-2023 08:00-0500 Heart rate 67 /min Grnat Summerse [facility] 02-03-2023 08:00-0500 Mean blood pressure 98 mm[Hg] Grant Summerse [facility] 02-03-2023 08:00-0500 SaO2% (BldA) [Mass fraction] 95 % Grant Summerse [facility] 02-03-2023 08:00-0500 Systolic blood pressure 129 mm[Hg] Grant Summerse [facility] 02-03-2023 07:30-0500 Diastolic blood pressure 86 mm[Hg] Grant Summerse [facility] 02-03-2023 07:30-0500 Heart rate 70 /min Grant Raya [facility] 02-03-2023 07:30-0500 Mean blood pressure 101 mm[Hg] Grant Summerse [facility] 02-03-2023 07:30-0500 Respiratory rate 17 /min Grant Summerse [facility] 02-03-2023 07:30-0500 SaO2% (BldA) [Mass fraction] 97 % Grant Dos Santos [facility] 02-03-2023 07:30-0500 Systolic blood pressure 131 mm[Hg] Grant Dos Santos [facility] 02-03-2023 07:19-0500 gluc 98 mg/dL Grant Dos Santos [facility] 02-03-2023 07:19-0500 gluc Grant Dos Santos [facility] 02-03-2023 07:10-0500 Body temperature 97.88 [degF] Grant Dos Santos [facility] 02-03-2023 07:10-0500 Heart rate 92 /min Grant Dos Santos [facility] 01-10-2023 12:51-0500 Body temperature 98.78 [degF] [facility] 01-10-2023 12:51-0500 Diastolic blood pressure 83 mm[Hg] [facility] 01-10-2023 12:51-0500 Heart rate 98 /min [facility] 01-10-2023 12:51-0500 Respiratory rate 16 /min [facility] 01-10-2023 12:51-0500 SaO2% (BldA) [Mass fraction] 100 % [facility] 01-10-2023 12:51-0500 Systolic blood pressure 150 mm[Hg] [facility] 11-14-2022 10:03-0400 Body temperature 98.06 [degF] [facility] 11-14-2022 10:03-0400 Diastolic blood pressure 68 mm[Hg] [facility] 11-14-2022 10:03-0400 Heart rate 84 /min [facility] 11-14-2022 10:03-0400 Respiratory rate 16 /min [facility] 11-14-2022 10:03-0400 SaO2% (BldA) [Mass fraction] 100 % [facility] 11-14-2022 10:03-0400 Systolic blood pressure 136 mm[Hg] [facility] 11-02-2022 00:04-0400 Body mass index (BMI) [Ratio] 29.26 kg/m2 Marito Jason MD Work Phone: [facility] 11-02-2022 00:04-0400 Body temperature 97.5 [degF] Marito Jason MD Work Phone: [facility] [employer] 11-02-2022 00:04-0400 Body weight 72.58 kg Marito Jason MD Work Phone: [facility] [employer] 11-02-2022 00:04-0400 Diastolic blood pressure 94 mm[Hg] Marito Jason MD [facility] 11-02-2022 00:04-0400 Heart rate 80 /min Marito Jason MD Work Phone[facility] [employer] 11-02-2022 00:04-0400 Respiratory rate 18 /min Marito Jason MD Work Phone[facility] [employer] 11-02-2022 00:04-0400 SaO2% (BldA) [Mass fraction] 98 % Marito Jason MD Work Phone: [facility] [employer] 11-02-2022 00:04-0400 Systolic blood pressure 121 mm[Hg] Marito Jason MD Work Phone: [facility] [employer] 10-31-2022 09:07-0400 Body height 157.48 cm DO Coy Day Work Phone: [facility] 10-31-2022 09:07-0400 Body temperature 97.9 [degF] DO Coy Olewiler Work Phone: [facility] 10-31-2022 09:07-0400 Body weight 86.8 kg DO Coy Olewiler Work Phone: [facility] 10-31-2022 09:07-0400 Diastolic blood pressure 95 mm[Hg] DO Coy Olewiler Work Phone: [facility] 10-31-2022 09:07-0400 Heart rate 83 /min DO Coy Olewiler Work Phone: [facility] 10-31-2022 09:07-0400 Respiratory rate 20 /min DO Coy Olewiler Work Phone: [facility] 10-31-2022 09:07-0400 SaO2% (BldA) [Mass fraction] 97 % DO Coy Ledezmawiler Work Phone: [facility] 10-31-2022 09:07-0400 Systolic blood pressure 151 mm[Hg] DO Coy Posadasler Work Phone: [facility] 10-29-2022 21:57-0400 Body height 157.5 cm Ev Barahona DO Work Phone: [employer] 10-29-2022 21:57-0400 Body mass index (BMI) [Ratio] 29.26 kg/m2 Ev Barahona DO Work Phone: [employer] 10-29-2022 21:57-0400 Body temperature 98.6 [degF] Ev Simpsonbal DO Work Phone: [employer] 10-29-2022 21:57-0400 Body weight 72.58 kg Ev Simpsonbal DO Work Phone: [employer] 10-29-2022 21:57-0400 Diastolic blood pressure 90 mm[Hg] Ev Simpsonbal DO Work Phone: [employer] 10-29-2022 21:57-0400 Heart rate 96 /min Ev Barahona DO Work Phone: [facility] [employer] 10-29-2022 21:57-0400 Respiratory rate 20 /min Ev Barahona DO Work Phone: [facility] [employer] 10-29-2022 21:57-0400 SaO2% (BldA) [Mass fraction] 96 % Ev Barahona DO Work Phone: [facility] [employer] 10-29-2022 21:57-0400 Systolic blood pressure 123 mm[Hg] Ev Barahona DO Work Phone: [facility] [employer] 10-27-2022 07:30-0400 Body temperature 97.9 [degF] DO Coy Olewiler Work Phone: [facility] 10-27-2022 07:30-0400 Diastolic blood pressure 89 mm[Hg] DO Coy Olewiler Work Phone: [facility] 10-27-2022 07:30-0400 Heart rate 86 /min DO Coy Olewiler Work Phone: [facility] 10-27-2022 07:30-0400 Respiratory rate 18 /min DO Coy Olewiler Work Phone: [facility] 10-27-2022 07:30-0400 SaO2% (BldA) [Mass fraction] 94 % DO Coy Olewiler Work Phone: [facility] 10-27-2022 07:30-0400 Systolic blood pressure 127 mm[Hg] DO Coy Olewiler Work Phone: [facility] 10-25-2022 10:28-0400 Body height 157.48 cm DO Coy Olewiler Work Phone: [facility] 10-25-2022 10:28-0400 Body weight 85.27 kg DO Coy Olewiler Work Phone: [facility] 10-24-2022 16:59-0400 Body height 157.5 cm Beth Ortiz APRN - COMMERCIAL AGENT Work Phone: [employer] 10-24-2022 16:59-0400 Body mass index (BMI) [Ratio] 29.26 kg/m2 Beth Ortiz APRN - COMMERCIAL AGENT Work Phone: [employer] 10-24-2022 16:59-0400 Body temperature 97.9 [degF] Beth Ortiz BUSINESS PROCESS REPRESENTATIVE - COMMERCIAL AGENT Work Phone: [employer] 10-24-2022 16:59-0400 Body weight 72.58 kg Beth Ortiz APRN - COMMERCIAL AGENT Work Phone: [employer] 10-24-2022 16:59-0400 Diastolic blood pressure 107 mm[Hg] Beth Ortiz BUSINESS PROCESS REPRESENTATIVE - COMMERCIAL AGENT Work Phone: [employer] 10-24-2022 16:59-0400 Heart rate 84 /min Beth Ortiz APRN - COMMERCIAL AGENT Work Phone: [facility] 10-24-2022 16:59-0400 Respiratory rate 20 /min Beth Ortiz APRN - COMMERCIAL AGENT Work Phone: [facility] 10-24-2022 16:59-0400 SaO2% (BldA) [Mass fraction] 99 % Beth Ortiz APRN - COMMERCIAL AGENT Work Phone: [facility] 10-24-2022 16:59-0400 Systolic blood pressure 141 mm[Hg] Beth Ortiz APRN - COMMERCIAL AGENT Work Phone: [facility] 10-14-2022 07:05-0400 Body temperature 97.7 [degF] Grant Dos Santos [facility] 10-14-2022 07:05-0400 Diastolic blood pressure 76 mm[Hg] Grant Dos Santos [facility] 10-14-2022 07:05-0400 Heart rate 97 /min Grant Dos Santos [facility] 10-14-2022 07:05-0400 Respiratory rate 16 /min Grant Dos Santos [facility] 10-14-2022 07:05-0400 SaO2% (BldA) [Mass fraction] 95 % Grant Dos Santos [facility] 10-14-2022 07:05-0400 Systolic blood pressure 120 mm[Hg] Grant Dos Santos [facility] 10-03-2022 13:52-0400 Diastolic blood pressure 95 mm[Hg] Beth Ortiz BUSINESS PROCESS REPRESENTATIVE - COMMERCIAL AGENT Work Phone: [facility] [employer] 10-03-2022 13:52-0400 Systolic blood pressure 136 mm[Hg] Beth Ortiz BUSINESS PROCESS REPRESENTATIVE - COMMERCIAL AGENT Work Phone: [facility] 10-03-2022 13:48-0400 Body height 157.5 cm Beth Ortiz BUSINESS PROCESS REPRESENTATIVE - COMMERCIAL AGENT Work Phone: [facility] 10-03-2022 13:48-0400 Body mass index (BMI) [Ratio] 29.26 kg/m2 Beth Ortiz BUSINESS PROCESS REPRESENTATIVE - COMMERCIAL AGENT Work Phone: [facility] 10-03-2022 13:48-0400 Body temperature 96.91 [degF] Beth Ortiz BUSINESS PROCESS REPRESENTATIVE - COMMERCIAL AGENT Work Phone: [facility] 10-03-2022 13:48-0400 Body weight 72.58 kg Beth Ortiz BUSINESS PROCESS REPRESENTATIVE - COMMERCIAL AGENT Work Phone: [facility] 10-03-2022 13:48-0400 Heart rate 87 /min Beth Ortiz BUSINESS PROCESS REPRESENTATIVE - COMMERCIAL AGENT Work Phone: [facility] [employer] 10-03-2022 13:48-0400 Respiratory rate 16 /min Beth Ortiz BUSINESS PROCESS REPRESENTATIVE - COMMERCIAL AGENT [facility]: [facility] 10-03-2022 13:48-0400 SaO2% (BldA) [Mass fraction] 98 % Beth Ortiz BUSINESS PROCESS REPRESENTATIVE - COMMERCIAL AGENT Work Phone: [facility] 09-19-2022 12:07-0400 Body temperature 97.11 [degF] Marito Jason MD Work Phone: [facility] [employer] [facility] 09-19-2022 12:07-0400 Diastolic blood pressure 87 mm[Hg] Marito Jason MD Work Phone: [facility] [employer] 09-19-2022 12:07-0400 Heart rate 73 /min Marito Jason MD Work Phone: [facility] 09-19-2022 12:07-0400 Respiratory rate 16 /min Marito Jason MD Work Phone: [facility] 09-19-2022 12:07-0400 SaO2% (BldA) [Mass fraction] 97 % Marito Jason MD Work Phone: [facility] [employer] 09-19-2022 12:07-0400 Systolic blood pressure 112 mm[Hg] Marito Jason MD Work Phone: [facility] 09-16-2022 07:18-0400 Body temperature 97.7 [degF] Grant Dos Santos [facility] 09-16-2022 07:18-0400 Diastolic blood pressure 82 mm[Hg] Grant Dos Santos [facility] 09-16-2022 07:18-0400 Heart rate 65 /min Grant Dos Santos [facility] 09-16-2022 07:18-0400 Respiratory rate 18 /min Grant Dos Santos [facility] 09-16-2022 07:18-0400 SaO2% (BldA) [Mass fraction] 98 % Grant Dos Santos [facility] 09-16-2022 07:18-0400 Systolic blood pressure 128 mm[Hg] Grant Dos Santos [facility] 09-07-2022 21:22-0400 Diastolic blood pressure 84 mm[Hg] Chito Staples MD Work Phone: [facility] 09-07-2022 21:22-0400 Heart rate 85 /min Chito Staples MD Work Phone: [employer] [facility] 09-07-2022 21:22-0400 Respiratory rate 16 /min Chito Staples MD Work Phone: [employer] 09-07-2022 21:22-0400 SaO2% (BldA) [Mass fraction] 100 % Chito Staples MD Work Phone: [employer] [facility] 09-07-2022 21:22-0400 Systolic blood pressure 132 mm[Hg] Chito Staples MD Work Phone: [employer] [facility] 09-07-2022 20:51-0400 Body height 157.5 cm Chito Staples MD Work Phone: [employer] [facility] 09-07-2022 20:51-0400 Body mass index (BMI) [Ratio] 30.73 kg/m2 Chito Staples MD Work Phone: [employer] [facility] 09-07-2022 20:51-0400 Body temperature 97.81 [degF] Chito Staples MD Work Phone: [employer] [facility] 09-07-2022 20:51-0400 Body weight 76.2 kg Chito Staples MD Work Phone: [employer] [facility] 08-28-2022 09:03-0400 Diastolic blood pressure 89 mm[Hg] Alan Zhu [facility] 08-28-2022 09:03-0400 Heart rate 76 /min Alan Marko [facility] 08-28-2022 09:03-0400 Respiratory rate 18 /min Alan Marko [facility] 08-28-2022 09:03-0400 SaO2% (BldA) [Mass fraction] 96 % Alan Marko [facility] 08-28-2022 09:03-0400 Systolic blood pressure 124 mm[Hg] Alan Marko [facility] 08-28-2022 07:19-0400 gluc 82 mg/dL Alanjose francisco Zhu [facility] 08-28-2022 07:19-0400 gluc Alanjose francisco Zhu [facility] 08-28-2022 07:12-0400 Body temperature 96.98 [degF] Alan Marko [facility] 08-28-2022 07:12-0400 Diastolic blood pressure 95 mm[Hg] Alan Zhu [facility] 08-28-2022 07:12-0400 Heart rate 69 /min Alan Marko [facility] 08-28-2022 07:12-0400 Respiratory rate 18 /min Alan Marko [facility] 08-28-2022 07:12-0400 SaO2% (BldA) [Mass fraction] 100 % Alan Marko [facility] 08-28-2022 07:12-0400 Systolic blood pressure 174 mm[Hg] Alan Zhu [facility] 08-19-2022 14:00-0400 Diastolic blood pressure 83 mm[Hg] Coy Day DO Work Phone: [facility] 08-19-2022 14:00-0400 Systolic blood pressure 123 mm[Hg] Coy Posadasler DO Work Phone: [facility] 08-19-2022 13:37-0400 Heart rate 81 /min Coy Day DO Work Phone: [facility] 08-19-2022 13:37-0400 Respiratory rate 23 /min Coy Day DO Work Phone: [facility] 08-19-2022 13:37-0400 SaO2% (BldA) [Mass fraction] 94 % Coy Posadasler DO Work Phone: [facility] 08-19-2022 11:14-0400 Body temperature 98.1 [degF] Coy Day DO Work Phone: [facility] 08-16-2022 13:13-0400 Body height 157.5 cm Coy Day DO Work Phone: [facility] 08-16-2022 13:13-0400 Body mass index (BMI) [Ratio] 29.26 kg/m2 Coy Posadasler DO Work Phone: [facility] 08-16-2022 13:13-0400 Body temperature 97.7 [degF] Coy Posadasler DO Work Phone: [facility] 08-16-2022 13:13-0400 Body weight 72.58 kg Coy Posadasler DO Work Phone: [facility] 08-16-2022 13:13-0400 Diastolic blood pressure 89 mm[Hg] Coy Posadasler DO Work Phone: [facility] [employer] 08-16-2022 13:13-0400 Heart rate 79 /min Coy Olewiler DO Work Phone: [facility] [employer] 08-16-2022 13:13-0400 Respiratory rate 16 /min Coy Olewiler DO Work Phone: [facility] [employer] 08-16-2022 13:13-0400 SaO2% (BldA) [Mass fraction] 97 % Coy Ledezmawiler DO Work Phone: [facility] [employer] 08-16-2022 13:13-0400 Systolic blood pressure 128 mm[Hg] Coy Olewiler DO Work Phone: [facility] 08-14-2022 17:22-0400 Body temperature 97.7 [degF] Alan Zhu [facility] 08-14-2022 17:22-0400 Diastolic blood pressure 89 mm[Hg] Alan Zhu [facility] 08-14-2022 17:22-0400 Heart rate 88 /min Alan Zhu [facility] 08-14-2022 17:22-0400 Respiratory rate 14 /min Alan Zhu [facility] 08-14-2022 17:22-0400 SaO2% (BldA) [Mass fraction] 97 % Alan Zhu [facility] 08-14-2022 17:22-0400 Systolic blood pressure 121 mm[Hg] Alan Marko [facility] 08-06-2022 21:28-0400 Body height 157.5 cm Coy Ledezmawiler DO Work Phone: [facility] [employer] 08-06-2022 21:28-0400 Body mass index (BMI) [Ratio] 29.26 kg/m2 Coy Olewiler DO Work Phone: [facility] 08-06-2022 21:28-0400 Body temperature 98.29 [degF] Coy Day DO Work Phone: [facility] [employer] 08-06-2022 21:28-0400 Body weight 72.58 kg Coy Day DO Work Phone: [facility] 08-06-2022 21:28-0400 Diastolic blood pressure 100 mm[Hg] Coy Day DO Work Phone: [facility] 08-06-2022 21:28-0400 Heart rate 93 /min Coy Day DO Work Phone: [facility] 08-06-2022 21:28-0400 Respiratory rate 20 /min Coy Day DO Work Phone: [facility] 08-06-2022 21:28-0400 SaO2% (BldA) [Mass fraction] 97 % Coy Day DO Work Phone: [facility] 08-06-2022 21:28-0400 Systolic blood pressure 149 mm[Hg] Coy Day DO Work Phone: [facility] 08-05-2022 10:52-0400 Respiratory rate 16 /min Coy Day DO Work Phone: [facility] 08-05-2022 10:52-0400 SaO2% (BldA) [Mass fraction] 95 % Coy Day DO Work Phone: [facility] 08-05-2022 09:49-0400 Diastolic blood pressure 72 mm[Hg] Coy Day DO Work Phone: [facility] 08-05-2022 09:49-0400 Heart rate 67 /min Coy Day DO Work Phone: [facility] 08-05-2022 09:49-0400 Systolic blood pressure 116 mm[Hg] Coy Ledezmawiler DO Work Phone: [facility] [employer] 08-05-2022 09:19-0400 Body mass index (BMI) [Ratio] 29.26 kg/m2 Coy Olewiler DO Work Phone: [facility] [employer] 08-05-2022 09:19-0400 Body temperature 97.59 [degF] Coy Ledezmawiler DO Work Phone: [facility] 08-05-2022 09:19-0400 Body weight 72.58 kg Coy Ledezmawiler DO Work Phone: [facility] [employer] 07-30-2022 17:30-0400 Body temperature 97.81 [degF] Coy Ledezmawiler DO Work Phone: [facility] [employer] 07-30-2022 17:27-0400 Body height 157.5 cm Coy Ledezmawiler DO Work Phone: [facility] 07-30-2022 17:27-0400 Body mass index (BMI) [Ratio] 29.26 kg/m2 Coy Ledezmawiler DO Work Phone: [facility] 07-30-2022 17:27-0400 Body weight 72.58 kg Coy Posadasler DO Work Phone: [facility] 07-30-2022 17:27-0400 Diastolic blood pressure 89 mm[Hg] Coy Ledezmawiler DO Work Phone: [facility] 07-30-2022 17:27-0400 Heart rate 82 /min Coy Ledezmawiler DO Work Phone: [facility] [employer] 07-30-2022 17:27-0400 Respiratory rate 16 /min Coy Posadasler DO Work Phone: [facility] [employer] 07-30-2022 17:27-0400 SaO2% (BldA) [Mass fraction] 97 % Coy Day DO Work Phone: [facility] [employer] 07-30-2022 17:27-0400 Systolic blood pressure 124 mm[Hg] Coy Day DO Work Phone: [facility] [employer] 07-28-2022 21:20-0400 Body temperature 98.29 [degF] Jhoan Galeano MD [facility] [employer] 07-28-2022 21:20-0400 Diastolic blood pressure 82 mm[Hg] Jhoan Galeano MD [facility] [employer] 07-28-2022 21:20-0400 Heart rate 94 /min Jhoan Galeano MD [facility] [employer] 07-28-2022 21:20-0400 Respiratory rate 17 /min Jhoan Galeano MD [facility] [employer] 07-28-2022 21:20-0400 SaO2% (BldA) [Mass fraction] 96 % Jhoan Galeano MD [facility] [employer] 07-28-2022 21:20-0400 Systolic blood pressure 119 mm[Hg] Jhoan Galeano MD [facility] [employer] 07-14-2022 06:00-0400 Diastolic blood pressure 83 mm[Hg] Jasonylinn Dokken [facility] 07-14-2022 06:00-0400 Heart rate 68 /min Jasonylinn Dokken [facility] 07-14-2022 06:00-0400 Mean blood pressure 95 mm[Hg] Jasonylinn Dokken [facility] 07-14-2022 06:00-0400 Respiratory rate 18 /min Jasonylinn Dokken [facility] 07-14-2022 06:00-0400 SaO2% (BldA) [Mass fraction] 99 % Jasonylinn Dokken [facility] 07-14-2022 06:00-0400 Systolic blood pressure 118 mm[Hg] Kaylinn Dokken [facility] 07-14-2022 05:00-0400 Diastolic blood pressure 84 mm[Hg] Kaylinn Dokken [facility] 07-14-2022 05:00-0400 Heart rate 69 /min Kaylinn Dokken [facility] 07-14-2022 05:00-0400 Mean blood pressure 99 mm[Hg] Kaylinn Dokken [facility] 07-14-2022 05:00-0400 SaO2% (BldA) [Mass fraction] 94 % Kaylinn Dokken [facility] 07-14-2022 05:00-0400 Systolic blood pressure 130 mm[Hg] Kaylinn Dokken [facility] 07-14-2022 04:00-0400 Diastolic blood pressure 88 mm[Hg] Kaylinn Dokken [facility] 07-14-2022 04:00-0400 Heart rate 72 /min Kaylinn Dokken [facility] 07-14-2022 04:00-0400 Mean blood pressure 101 mm[Hg] Kaylinn Dokken [facility] 07-14-2022 04:00-0400 Systolic blood pressure 127 mm[Hg] Kaylinn Dokken [facility] 07-14-2022 01:51-0400 Body temperature 98.24 [degF] Kaylinn Dokken [facility] 05-14-2023 01:51-0400 Heart rate 79 /min Edwin Jolley [facility] 07-11-2022 08:27-0400 Body height 157.5 cm Coy Zuñiga MD Work Phone: [facility] 07-11-2022 08:27-0400 Body mass index (BMI) [Ratio] 30.18 kg/m2 Coy Zuñiga MD Work Phone: [facility] 07-11-2022 08:27-0400 Body temperature 97.7 [degF] Coy Zuñiga MD Work Phone: [facility] 07-11-2022 08:27-0400 Body weight 74.84 kg Coy Zuñiga MD Work Phone: [facility] 07-11-2022 08:27-0400 Diastolic blood pressure 90 mm[Hg] Coy Zuñiga MD Work Phone: [facility] 07-11-2022 08:27-0400 Heart rate 75 /min Coy Zuñiga MD Work Phone: [facility] 07-11-2022 08:27-0400 Respiratory rate 16 /min Coy Zuñiga MD Work Phone: [facility] 07-11-2022 08:27-0400 SaO2% (BldA) [Mass fraction] 98 % Coy Zuñiga MD Work Phone: [facility] 07-11-2022 08:27-0400 Systolic blood pressure 131 mm[Hg] Coy Zuñiga MD Work Phone: [facility] 07-10-2022 12:19-0400 Body mass index (BMI) [Ratio] 33.4 kg/m2 Raul Solitario MD Work Phone: [facility] 07-10-2022 12:19-0400 Body temperature 98.01 [degF] Raul Solitario MD Work Phone: [facility] 07-10-2022 12:19-0400 Body weight 82.83 kg Raul Solitario MD Work Phone: [facility] 07-10-2022 12:19-0400 Diastolic blood pressure 80 mm[Hg] Raul Solitario MD Work Phone: [facility] 07-10-2022 12:19-0400 Heart rate 83 /min Raul Solitario MD Work Phone: [facility] 07-10-2022 12:19-0400 Respiratory rate 16 /min Raul Solitario MD Work Phone: [facility] [employer] [facility] 07-10-2022 12:19-0400 SaO2% (BldA) [Mass fraction] 96 % Raul Solitario MD Work Phone: [facility] [employer] [facility] 07-10-2022 12:19-0400 Systolic blood pressure 119 mm[Hg] Raul Solitario MD Work Phone: [facility] 07-07-2022 21:14-0400 Diastolic blood pressure 86 mm[Hg] Ishmael Jim [facility] 07-07-2022 21:14-0400 Heart rate 79 /min Ishmael Jim [facility] 07-07-2022 21:14-0400 Mean blood pressure 100 mm[Hg] Ishmael Jim [facility] 07-07-2022 21:14-0400 Nursing Progress Note Reason Other: discharge instructions given. pt verbalized understanding. Ishmael Jim [facility] 07-07-2022 21:14-0400 SaO2% (BldA) [Mass fraction] 94 % Ishmael Jim [facility] 07-07-2022 21:14-0400 Systolic blood pressure 127 mm[Hg] Ishmael Jim [facility] 07-07-2022 18:53-0400 Body temperature 97.7 [degF] Ishmael Jim [facility] 07-07-2022 18:53-0400 Diastolic blood pressure 88 mm[Hg] Ishmael Jim [facility] 07-07-2022 18:53-0400 Heart rate 79 /min Ishmael Jim [facility] 07-07-2022 18:53-0400 Respiratory rate 20 /min [facility] Jim [facility] 07-07-2022 18:53-0400 SaO2% (BldA) [Mass fraction] 95 % Ishmael Jim [facility] 07-07-2022 18:53-0400 Systolic blood pressure 147 mm[Hg] Ishmael Jim [facility] 06-12-2022 18:09-0400 Body height 157.5 cm Oliverio Weeks MD Work Phone: [facility] [employer] 06-12-2022 18:09-0400 Body mass index (BMI) [Ratio] 33.42 kg/m2 Oliverio Weeks MD Work Phone: [facility] [employer] 06-12-2022 18:09-0400 Body temperature 98.4 [degF] Oliverio Weeks MD Work Phone: [facility] [employer] 06-12-2022 18:09-0400 Body weight 82.87 kg Oliverio Weeks MD Work Phone: [facility] [employer] 06-12-2022 18:09-0400 Diastolic blood pressure 81 mm[Hg] Oliverio Weeks MD Work Phone: [facility] [employer] 06-12-2022 18:09-0400 Heart rate 93 /min Oliverio Weeks MD Work Phone: [facility] 06-12-2022 18:09-0400 Respiratory rate 18 /min Oliverio Weeks MD Work Phone: [facility] 06-12-2022 18:09-0400 SaO2% (BldA) [Mass fraction] 97 % Oliverio Weeks MD Work Phone: [facility] 06-12-2022 18:09-0400 Systolic blood pressure 136 mm[Hg] Oliverio Weeks MD Work Phone: [facility] 06-03-2022 19:25-0400 Body height 132.08 cm Dom Barrington Other [employer] Other 06-03-2022 19:25-0400 Body mass index (BMI) [Ratio] 42.9 kg/m2 Dom Barrington Other [employer] Other 06-03-2022 19:25-0400 Body temperature 98 [degF] Dom Barrington Other [employer] Other 06-03-2022 19:25-0400 Body weight 74.84 kg Dom Ferris Other [employer] Other 06-03-2022 19:25-0400 Diastolic blood pressure 82 mm[Hg] Dom Barrington Other [employer] Other 06-03-2022 19:25-0400 Respiratory rate 18 /min Dom Barrington Other [employer] Other 06-03-2022 19:25-0400 SaO2% (BldA) [Mass fraction] 97 % Dom Barrington Other [employer] Other 06-03-2022 19:25-0400 Systolic blood pressure 119 mm[Hg] Dom Ferris Other [facility] [address] Other 05-30-2022 23:00-0400 Body temperature 98.42 [degF] Ishmael Jim [facility] 05-30-2022 23:00-0400 Diastolic blood pressure 66 mm[Hg] Ishmael Jim [facility] 05-30-2022 23:00-0400 Heart rate 92 /min Ishmael Jim [facility] 05-30-2022 23:00-0400 Mean blood pressure 84 mm[Hg] Ishmael Jim [facility] 05-30-2022 23:00-0400 Respiratory rate 18 /min Ishmael Jim [facility] 05-30-2022 23:00-0400 SaO2% (BldA) [Mass fraction] 96 % Ishmael Jim [facility] 05-30-2022 23:00-0400 Systolic blood pressure 120 mm[Hg] Ishmael Jim [facility] 05-30-2022 22:00-0400 Diastolic blood pressure 60 mm[Hg] Ishmael Jim [facility] 05-30-2022 22:00-0400 Heart rate 90 /min Ishmael Jim [facility] 05-30-2022 22:00-0400 Mean blood pressure 82 mm[Hg] Ishmael Jim [facility] 05-30-2022 22:00-0400 SaO2% (BldA) [Mass fraction] 99 % Ishmael Jim [facility] 05-30-2022 22:00-0400 Systolic blood pressure 125 mm[Hg] Ishmael Jim [facility] 05-30-2022 21:59-0400 gluc 115 mg/dL Ishmael Jim [facility] 05-30-2022 21:59-0400 gluc Ishmael Jim [facility] 05-30-2022 21:40-0400 Body temperature 98.24 [degF] Ishmael Jim [facility] 05-30-2022 21:40-0400 Diastolic blood pressure 88 mm[Hg] Ishmael Jim [facility] 05-30-2022 21:40-0400 Heart rate 84 /min Ishmael Jim [facility] 05-30-2022 21:40-0400 Respiratory rate 17 /min Ishmael Jim [facility] 05-30-2022 21:40-0400 SaO2% (BldA) [Mass fraction] 97 % Ishmael Jim [facility] 05-30-2022 21:40-0400 Systolic blood pressure 128 mm[Hg] Ishmael Jim [facility] 05-29-2022 14:53-0400 Body height 157.48 cm PHYSICIAN NO [facility] 05-29-2022 14:53-0400 Body temperature 98.8 [degF] PHYSICIAN [facility] 05-29-2022 14:53-0400 Body weight 80 kg PHYSICIAN [facility] 05-29-2022 14:53-0400 Diastolic blood pressure 87 mm[Hg] PHYSICIAN [facility] 05-29-2022 14:53-0400 Heart rate 105 /min PHYSICIAN NO [facility] 05-29-2022 14:53-0400 Respiratory rate 18 /min PHYSICIAN NO [facility] 05-29-2022 14:53-0400 SaO2% (BldA) [Mass fraction] 98 % PHYSICIAN NO [facility] 05-29-2022 14:53-0400 Systolic blood pressure 131 mm[Hg] PHYSICIAN NO [facility] 05-07-2022 15:00-0500 Diastolic blood pressure 87 mm[Hg] Grant Summerse [facility] 05-07-2022 15:00-0500 Heart rate 96 /min Grant Summerse [facility] 05-07-2022 15:00-0500 Respiratory rate 16 /min Grant Summerse [facility] 05-07-2022 15:00-0500 SaO2% (BldA) [Mass fraction] 99 % Grant Raya [facility] 05-07-2022 15:00-0500 Systolic blood pressure 139 mm[Hg] Grant Raya [facility] 05-07-2022 12:56-0500 Body temperature 97.34 [degF] Grant Raya [facility] 05-07-2022 12:56-0500 Diastolic blood pressure 88 mm[Hg] Grant Summerse [facility] 05-07-2022 12:56-0500 Heart rate 105 /min Grant Raya [facility] 05-07-2022 12:56-0500 Respiratory rate 14 /min Grant Raya [facility] 05-07-2022 12:56-0500 SaO2% (BldA) [Mass fraction] 100 % Grant Raya [facility] 05-07-2022 12:56-0500 Systolic blood pressure 145 mm[Hg] Grant Raya [facility] 03-29-2022 10:39-0500 Body temperature 97.88 [degF] Dat WILSON [facility] 03-29-2022 10:39-0500 Diastolic blood pressure 89 mm[Hg] Dat WILSON [facility] 03-29-2022 10:39-0500 Heart rate 82 /min Dat WILSON [facility] 03-29-2022 10:39-0500 Respiratory rate 18 /min Dat WILSON [facility] 03-29-2022 10:39-0500 SaO2% (BldA) [Mass fraction] 97 % Dat WILSON [facility] 03-29-2022 10:39-0500 Systolic blood pressure 138 mm[Hg] Dat WILSON [facility] 03-14-2022 13:26-0500 Body temperature 98.06 [degF] Alan Zhu [facility] 03-14-2022 13:26-0500 Diastolic blood pressure 88 mm[Hg] Alan Zhu [facility] 03-14-2022 13:26-0500 Heart rate 99 /min Alan Zhu [facility] 03-14-2022 13:26-0500 Respiratory rate 18 /min Alan Zhu [facility] 03-14-2022 13:26-0500 SaO2% (BldA) [Mass fraction] 100 % Alan Zhu [facility] 03-14-2022 13:26-0500 Systolic blood pressure 142 mm[Hg] Alan Zhu [facility] 01-29-2022 04:31-0500 Body temperature 97.7 [degF] Ishmael Arnettner [facility] 01-29-2022 04:31-0500 Diastolic blood pressure 78 mm[Hg] Ishmael Jim [facility] 01-29-2022 04:31-0500 Heart rate 86 /min Ishmael Jim [facility] 01-29-2022 04:31-0500 Respiratory rate 18 /min Ishmael Jim [facility] 01-29-2022 04:31-0500 SaO2% (BldA) [Mass fraction] 97 % Ishmael Jim [facility] 01-29-2022 04:31-0500 Systolic blood pressure 110 mm[Hg] Ishmael Fernandez [facility] 01-15-2022 12:04-0500 Body temperature 98.6 [degF] Grant Summerse [facility] 01-15-2022 12:04-0500 Diastolic blood pressure 80 mm[Hg] Grant Raya [facility] 01-15-2022 12:04-0500 Heart rate 81 /min Grant Raya [facility] 01-15-2022 12:04-0500 Respiratory rate 18 /min Grant Raya [facility] 01-15-2022 12:04-0500 SaO2% (BldA) [Mass fraction] 97 % Grant Raya [facility] 01-15-2022 12:04-0500 Systolic blood pressure 114 mm[Hg] Grant Raya [facility] 12-05-2021 20:02-0400 Body temperature 98.01 [degF] Oliverio Weeks MD Work Phone: [facility] [employer] 12-05-2021 20:02-0400 Diastolic blood pressure 88 mm[Hg] Oliverio Weeks MD Work Phone: [facility] [employer] 12-05-2021 20:02-0400 Heart rate 99 /min Oliverio Weeks MD Work Phone: [facility] 12-05-2021 20:02-0400 Respiratory rate 18 /min Oliverio Weeks MD Work Phone: [facility] 12-05-2021 20:02-0400 SaO2% (BldA) [Mass fraction] 98 % Oliverio Weeks MD Work Phone: [facility] [employer] 12-05-2021 20:02-0400 Systolic blood pressure 145 mm[Hg] Oliverio Weeks MD Work Phone: [facility] 12-05-2021 20:01-0400 Body height 157.5 cm Oliverio Weeks MD Work Phone: [facility] 12-05-2021 20:01-0400 Body mass index (BMI) [Ratio] 30.18 kg/m2 Oliverio Weeks MD Work Phone: [facility] 12-05-2021 20:01-0400 Body weight 74.84 kg Oliverio Weeks MD Work Phone: [facility] 12-04-2021 16:20-0400 Body temperature 98.6 [degF] Alan Zhu [facility] 12-04-2021 16:20-0400 Diastolic blood pressure 91 mm[Hg] Alan Zhu [facility] 12-04-2021 16:20-0400 Heart rate 82 /min Alan Zhu [facility] 12-04-2021 16:20-0400 Respiratory rate 18 /min Alan Zhu [facility] 12-04-2021 16:20-0400 SaO2% (BldA) [Mass fraction] 100 % Alan Marko [facility] 12-04-2021 16:20-0400 Systolic blood pressure 132 mm[Hg] Alan Marko [facility] 11-30-2021 14:02-0400 Body temperature 98.24 [degF] Alanjose francisco Zhu [facility] 11-30-2021 14:02-0400 Diastolic blood pressure 96 mm[Hg] Alan Marko [facility] 11-30-2021 14:02-0400 Heart rate 93 /min Alan Zhu [facility] 11-30-2021 14:02-0400 Respiratory rate 16 /min Alan Marko [facility] 11-30-2021 14:02-0400 SaO2% (BldA) [Mass fraction] 96 % Alan Marko [facility] 11-30-2021 14:02-0400 Systolic blood pressure 135 mm[Hg] Alan Zhu [facility] 11-20-2021 22:55-0400 Heart rate 78 /min Bertin Dom [facility] 11-20-2021 22:55-0400 Respiratory rate 18 /min Bertin Dom [facility] 11-20-2021 22:55-0400 SaO2% (BldA) [Mass fraction] 97 % Bertin Dom [facility] 11-20-2021 20:46-0400 Body temperature 98.06 [degF] Bertin Fernandes [facility] 11-20-2021 20:46-0400 Diastolic blood pressure 70 mm[Hg] Bertin Fernandes [facility] 11-20-2021 20:46-0400 Heart rate 76 /min Bertin Fernandes [facility] 11-20-2021 20:46-0400 Respiratory rate 18 /min Bertin Fernandes [facility] 11-20-2021 20:46-0400 SaO2% (BldA) [Mass fraction] 96 % Bertin Fernandes [facility] 11-20-2021 20:46-0400 Systolic blood pressure 114 mm[Hg] Bertin Fernandes [facility] 11-18-2021 21:45-0400 Body height 157.5 cm [employer] 11-18-2021 21:45-0400 Body mass index (BMI) [Ratio] 30.18 kg/m2 [employer] 11-18-2021 21:45-0400 Body temperature 98.1 [degF] [employer] 11-18-2021 21:45-0400 Body weight 74.84 kg [employer] 11-18-2021 21:45-0400 Diastolic blood pressure 83 mm[Hg] [facility] 11-18-2021 21:45-0400 Heart rate 91 /min [employer] 11-18-2021 21:45-0400 Respiratory rate 16 /min [employer] 11-18-2021 21:45-0400 SaO2% (BldA) [Mass fraction] 100 % [facility] 11-18-2021 21:45-0400 Systolic blood pressure 124 mm[Hg] [facility] 11-18-2021 17:48-0400 Body height 157.5 cm Jose Lowery MD Work Phone: [facility] 11-18-2021 17:48-0400 Body mass index (BMI) [Ratio] 30.18 kg/m2 Jose Lowery MD Work Phone: [facility] 11-18-2021 17:48-0400 Body temperature 98.29 [degF] Jose Lowery MD Work Phone: [facility] 11-18-2021 17:48-0400 Body weight 74.84 kg Jose Lowery MD Work Phone: [facility] 11-18-2021 17:48-0400 Diastolic blood pressure 90 mm[Hg] Jose Lowery MD Work Phone: [facility] 11-18-2021 17:48-0400 Heart rate 102 /min Jose Lowery MD Work Phone: [facility] 11-18-2021 17:48-0400 Respiratory rate 20 /min Jose Lowery MD Work Phone: [facility] 11-18-2021 17:48-0400 SaO2% (BldA) [Mass fraction] 98 % Jose Lowery MD Work Phone: [facility] 11-18-2021 17:48-0400 Systolic blood pressure 143 mm[Hg] Jose Lowery MD Work Phone: [facility] 11-14-2021 22:47-0400 Diastolic blood pressure 80 mm[Hg] Ishmael Jmi [facility] 11-14-2021 22:47-0400 Heart rate 74 /min Ishmael Jim [facility] 11-14-2021 22:47-0400 Mean blood pressure 94 mm[Hg] Ishmael Jim [facility] 11-14-2021 22:47-0400 SaO2% (BldA) [Mass fraction] 95 % Ishmael Jim [facility] 11-14-2021 22:47-0400 Systolic blood pressure 122 mm[Hg] Ishmael Jim [facility] 11-14-2021 21:45-0400 Body temperature 98.6 [degF] Ishmael Jim [facility] 11-14-2021 21:45-0400 Diastolic blood pressure 72 mm[Hg] Ishmael Jim [facility] 11-14-2021 21:45-0400 Heart rate 78 /min Ishmael Jim [facility] 11-14-2021 21:45-0400 Respiratory rate 18 /min Ishmael Jim [facility] 11-14-2021 21:45-0400 SaO2% (BldA) [Mass fraction] 98 % Ishmael Jim [facility] 11-14-2021 21:45-0400 Systolic blood pressure 114 mm[Hg] Ishmael Jim [facility] 11-08-2021 03:52-0400 Diastolic blood pressure 64 mm[Hg] Kaylinn Dokken [facility] 11-08-2021 03:52-0400 Heart rate 64 /min Kaylinn Dokken [facility] 11-08-2021 03:52-0400 Hourly Rounding Kaylinn Dokken [facility] 11-08-2021 03:52-0400 Mean blood pressure 87 mm[Hg] Kaylinn Dokken [facility] 11-08-2021 03:52-0400 Promise to Return Kaylinn Dokken [facility] 11-08-2021 03:52-0400 Respiratory rate 18 /min Kaylinn Dokken [facility] 11-08-2021 03:52-0400 SaO2% (BldA) [Mass fraction] 98 % Kaylinn Dokken [facility] 11-08-2021 03:52-0400 Systolic blood pressure 132 mm[Hg] Kaylinn Dokken [facility] 11-08-2021 02:25-0400 Body temperature 98.24 [degF] Kaylinn Dokken [facility] 11-08-2021 02:25-0400 Diastolic blood pressure 83 mm[Hg] Kaylinn Dokken [facility] 11-08-2021 02:25-0400 Heart rate 68 /min Jasonylinn Dokken [facility] 11-08-2021 02:25-0400 Respiratory rate 16 /min Jasonylinn Dokken [facility] 11-08-2021 02:25-0400 SaO2% (BldA) [Mass fraction] 96 % Kaylinn Dokken [facility] 11-08-2021 02:25-0400 Systolic blood pressure 124 mm[Hg] Kaylinn Dokken [facility] 10-10-2021 07:30-0400 Body temperature 98.3 [degF] MD Huma Barone Work Phone: [facility] 10-10-2021 07:30-0400 Diastolic blood pressure 66 mm[Hg] MD Huma Barone Work Phone: [facility] 10-10-2021 07:30-0400 Heart rate 81 /min MD Huma Barone Work Phone: [facility] 10-10-2021 07:30-0400 Respiratory rate 16 /min MD Huma Barone Work Phone: [facility] 10-10-2021 07:30-0400 SaO2% (BldA) [Mass fraction] 96 % MD Huma Barone Work Phone: [facility] 10-10-2021 07:30-0400 Systolic blood pressure 99 mm[Hg] MD Huma Barone Work Phone: [facility] 10-09-2021 15:20-0400 Body height 157.48 cm MD Huma Barone Work Phone: [facility] 10-08-2021 08:38-0400 Body weight 69.4 kg MD Huma Barone Work Phone: [facility] 10-08-2021 01:21-0400 Nursing Progress Note Reason Other: pt on cart w eyes closed, resp equal and non labored. skin pwd [facility] 10-07-2021 23:44-0400 Nursing Progress Note Reason Other: provided pt w po fluids. security on [place]. calm and cooperative at this time [facility] 10-07-2021 23:06-0400 Diastolic blood pressure 80 mm[Hg] [facility] 10-07-2021 23:06-0400 Heart rate 70 /min [facility] 10-07-2021 23:06-0400 Nursing Progress Note Reason Other: pt tearful on cart, denies needs, [facility] 10-07-2021 23:06-0400 Respiratory rate 16 /min [facility] 10-07-2021 23:06-0400 SaO2% (BldA) [Mass fraction] 100 % [facility] 10-07-2021 23:06-0400 Systolic blood pressure 118 mm[Hg] [facility] 10-07-2021 13:35-0400 Body temperature 98.78 [degF] [facility] 10-07-2021 13:35-0400 Diastolic blood pressure 77 mm[Hg] [facility] 10-07-2021 13:35-0400 Heart rate 124 /min [facility] 10-07-2021 13:35-0400 Respiratory rate 16 /min [facility] 10-07-2021 13:35-0400 SaO2% (BldA) [Mass fraction] 95 % [facility] 10-07-2021 13:35-0400 Systolic blood pressure 110 mm[Hg] [facility] 10-07-2021 01:30-0400 Body temperature 98.6 [degF] Kaylinn Dokken [facility] 10-07-2021 01:30-0400 Diastolic blood pressure 70 mm[Hg] Kaylinn Dokken [facility] 10-07-2021 01:30-0400 Heart rate 88 /min Kaylinn Dokken [facility] 10-07-2021 01:30-0400 Mean blood pressure 89 mm[Hg] Kaylinn Dokken [facility] 10-07-2021 01:30-0400 Respiratory rate 16 /min Kaylinn Dokken [facility] 10-07-2021 01:30-0400 SaO2% (BldA) [Mass fraction] 99 % Kaylinn Dokken [facility] 10-07-2021 01:30-0400 Systolic blood pressure 128 mm[Hg] Kaylinn Dokken [facility] 10-07-2021 01:00-0400 Heart rate 80 /min Kaylinn Dokken [facility] 10-07-2021 01:00-0400 Mean blood pressure 88 mm[Hg] Kaylinn Dokken [facility] 10-07-2021 01:00-0400 Respiratory rate 17 /min Kaylinn Dokken [facility] 10-07-2021 01:00-0400 SaO2% (BldA) [Mass fraction] 95 % Kaylinn Dokken [facility] 10-07-2021 01:00-0400 Systolic blood pressure 125 mm[Hg] Kaylinn Dokken [facility] 10-07-2021 00:40-0400 Body temperature 98.24 [degF] Kaylinn Dokken [facility] 10-07-2021 00:40-0400 Diastolic blood pressure 84 mm[Hg] Kaylinn Dokken [facility] 10-07-2021 00:40-0400 Heart rate 107 /min Kaylinn Dokken [facility] 10-07-2021 00:40-0400 Respiratory rate 18 /min Kaylinn Dokken [facility] 10-07-2021 00:40-0400 SaO2% (BldA) [Mass fraction] 94 % Kaylinn Dokken [facility] 10-07-2021 00:40-0400 Systolic blood pressure 131 mm[Hg] Kaylinn Dokken [facility] 10-06-2021 04:00-0400 Diastolic blood pressure 98 mm[Hg] Kaylinn Dokken [facility] 10-06-2021 04:00-0400 Heart rate 96 /min Kaylinn Dokken [facility] 10-06-2021 04:00-0400 Mean blood pressure 114 mm[Hg] Kaylinn Dokken [facility] 10-06-2021 04:00-0400 Systolic blood pressure 145 mm[Hg] Kaylinn Dokken [facility] 10-06-2021 03:59-0400 Body temperature 98.24 [degF] Kaylinn Dokken [facility] 10-06-2021 03:59-0400 Diastolic blood pressure 100 mm[Hg] Kaylinn Dokken [facility] 10-06-2021 03:59-0400 Heart rate 117 /min Kaylinn Dokken [facility] 10-06-2021 03:59-0400 Respiratory rate 20 /min Jasonylinn Dokken [facility] 10-06-2021 03:59-0400 SaO2% (BldA) [Mass fraction] 98 % Jasonylinn Dokken [facility] 10-06-2021 03:59-0400 Systolic blood pressure 154 mm[Hg] Kaylinn Dokken [facility] 10-05-2021 01:00-0400 Hourly Rounding Bertin Dom [facility] 10-05-2021 00:00-0400 Hourly Rounding Bertin Dom [facility] 10-04-2021 23:00-0400 Hourly Rounding Bertin Dom [facility] 10-04-2021 20:08-0400 Body temperature 97.7 [degF] Bertin Fernandes [facility] 10-04-2021 20:08-0400 Diastolic blood pressure 82 mm[Hg] Bertin Fernandes [facility] 10-04-2021 20:08-0400 Heart rate 105 /min Bertin Fernandes [facility] 10-04-2021 20:08-0400 Respiratory rate 16 /min Bertin Fernandes [facility] 10-04-2021 20:08-0400 SaO2% (BldA) [Mass fraction] 94 % Bertin Fernandes [facility] 10-04-2021 20:08-0400 Systolic blood pressure 112 mm[Hg] Bertin Fernandes [facility] 10-02-2021 18:33-0400 Body temperature 98.06 [degF] Grant Dos Santos [facility] 10-02-2021 18:33-0400 Diastolic blood pressure 86 mm[Hg] Grant Dos Santos [facility] 10-02-2021 18:33-0400 Heart rate 90 /min Grant Dos Santos [facility] 10-02-2021 18:33-0400 Respiratory rate 16 /min Grant Dos Santos [facility] 10-02-2021 18:33-0400 SaO2% (BldA) [Mass fraction] 97 % Grant Dos Santos [facility] 10-02-2021 18:33-0400 Systolic blood pressure 124 mm[Hg] Grant Dos Santos [facility] 09-30-2021 18:00-0400 Diastolic blood pressure 81 mm[Hg] Matt Pena [facility] 09-30-2021 18:00-0400 Heart rate 76 /min [facility] 09-30-2021 18:00-0400 Mean blood pressure 91 mm[Hg] [facility] 09-30-2021 18:00-0400 Respiratory rate 16 /min [facility] 09-30-2021 18:00-0400 SaO2% (BldA) [Mass fraction] 97 % [facility] 09-30-2021 18:00-0400 Systolic blood pressure 111 mm[Hg] [facility] 09-30-2021 17:00-0400 Diastolic blood pressure 85 mm[Hg] [facility] 09-30-2021 17:00-0400 Heart rate 80 /min [facility] 09-30-2021 17:00-0400 Mean blood pressure 99 mm[Hg] [facility] 09-30-2021 17:00-0400 SaO2% (BldA) [Mass fraction] 96 % [facility] 09-30-2021 17:00-0400 Systolic blood pressure 127 mm[Hg] [facility] 09-30-2021 16:00-0400 Body temperature 98.24 [degF] [facility] 09-30-2021 16:00-0400 Diastolic blood pressure 108 mm[Hg] [facility] 09-30-2021 16:00-0400 Heart rate 94 /min [facility] 09-30-2021 16:00-0400 Systolic blood pressure 151 mm[Hg] [facility] 09-24-2021 10:15-0400 Body weight 69.39 kg MD Huma Barone Work Phone: [facility] 09-24-2021 07:30-0400 Body temperature 98.1 [degF] MD Huma Barone Work Phone: [facility] 09-24-2021 07:30-0400 Diastolic blood pressure 93 mm[Hg] MD Huma Barone Work Phone: [facility] 09-24-2021 07:30-0400 Heart rate 72 /min MD Huma Barone Work Phone: [facility] 09-24-2021 07:30-0400 Respiratory rate 18 /min MD Huma Barone Work Phone: [facility] 09-24-2021 07:30-0400 SaO2% (BldA) [Mass fraction] 96 % MD Huma Barone Work Phone: [facility] 09-24-2021 07:30-0400 Systolic blood pressure 135 mm[Hg] MD Huma Barone Work Phone: [facility] 09-21-2021 14:37-0400 Body height 157.48 cm MD Huma Barone Work Phone: [facility] 08-23-2021 01:51-0400 Body temperature 98.6 [degF] Ishmael Jim [facility] 08-23-2021 01:51-0400 Diastolic blood pressure 88 mm[Hg] Ishmael Jim [facility] 08-23-2021 01:51-0400 Heart rate 79 /min Ishmael Jim [facility] 08-23-2021 01:51-0400 Mean blood pressure 101 mm[Hg] Ishmael Jim [facility] 08-23-2021 01:51-0400 Respiratory rate 18 /min Ishmael Ijm [facility] 08-23-2021 01:51-0400 SaO2% (BldA) [Mass fraction] 94 % Ishmael Jim [facility] 08-23-2021 01:51-0400 Systolic blood pressure 127 mm[Hg] Ishmael Jim [facility] 08-23-2021 01:00-0400 Diastolic blood pressure 67 mm[Hg] Ishmael Jim [facility] 08-23-2021 01:00-0400 Heart rate 82 /min Ishmael Jim [facility] 08-23-2021 01:00-0400 Mean blood pressure 88 mm[Hg] Ishmael Jim [facility] 08-23-2021 01:00-0400 Systolic blood pressure 129 mm[Hg] Ishmael Jim [facility] 08-23-2021 00:00-0400 Body temperature 98.24 [degF] Ishmael Ijm [facility] 08-23-2021 00:00-0400 Diastolic blood pressure 78 mm[Hg] Ishmael Jim [facility] 08-23-2021 00:00-0400 Heart rate 80 /min Ishmael Jim [facility] 08-23-2021 00:00-0400 Mean blood pressure 95 mm[Hg] Ishmael Jim [facility] 08-23-2021 00:00-0400 Respiratory rate 17 /min Ishmael Jim [facility] 08-23-2021 00:00-0400 SaO2% (BldA) [Mass fraction] 95 % Ishmael Jim [facility] 08-23-2021 00:00-0400 Systolic blood pressure 128 mm[Hg] Ishmael Jim [facility] 08-17-2021 07:30-0400 Body temperature 98.6 [degF] MD Huma Barone Work Phone: [facility] 08-17-2021 07:30-0400 Diastolic blood pressure 94 mm[Hg] MD Huma Barone Work Phone: [facility] 08-17-2021 07:30-0400 Heart rate 75 /min MD Huma Barone Work Phone: [facility] 08-17-2021 07:30-0400 SaO2% (BldA) [Mass fraction] 95 % MD Huma Barone Work Phone: [facility] 08-17-2021 07:30-0400 Systolic blood pressure 125 mm[Hg] MD Huma Barone Work Phone: [facility] 08-16-2021 20:24-0400 Respiratory rate 16 /min MD Huma Barone Work Phone: [facility] 08-15-2021 13:45-0400 Body height 157.48 cm MD Huma Barone Work Phone: [facility] 08-15-2021 05:15-0400 Body mass index (BMI) [Ratio] 31.8 kg/m2 MD Huma Barone Work Phone: [facility] 08-15-2021 05:15-0400 Body weight 78.92 kg MD Huma Barone Work Phone: [facility] 08-07-2021 15:09-0400 Body temperature 98.06 [degF] Grant Dos Santos [facility] 08-07-2021 15:09-0400 Diastolic blood pressure 91 mm[Hg] Grant Dos Santos [facility] 08-07-2021 15:09-0400 Heart rate 85 /min Grant Dos Santos [facility] 08-07-2021 15:09-0400 Respiratory rate 18 /min Grant Dos Santos [facility] 08-07-2021 15:09-0400 SaO2% (BldA) [Mass fraction] 99 % Grant Dos Santos [facility] 08-07-2021 15:09-0400 Systolic blood pressure 133 mm[Hg] Grant Dos Santos [facility] 08-06-2021 01:51-0400 Body temperature 98.6 [degF] Chito Staples MD Work Phone: [facility] [employer] 08-06-2021 01:51-0400 Diastolic blood pressure 92 mm[Hg] Chito Staples MD Work Phone: [facility] [employer] 08-06-2021 01:51-0400 Heart rate 88 /min Chito Staples MD Work Phone: [facility] 08-06-2021 01:51-0400 Respiratory rate 20 /min Chito Staples MD Work Phone: [facility] 08-06-2021 01:51-0400 SaO2% (BldA) [Mass fraction] 98 % Chito Staples MD Work Phone: [facility] 08-06-2021 01:51-0400 Systolic blood pressure 120 mm[Hg] Chito Staples MD Work Phone: [facility] 07-31-2021 11:02-0400 Body height 157.5 cm Oliverio Weeks MD Work Phone: [facility] 07-31-2021 11:02-0400 Body mass index (BMI) [Ratio] 24.69 kg/m2 Oliverio Weeks MD Work Phone: [facility] 07-31-2021 11:02-0400 Body temperature 98.01 [degF] Oliverio Weeks MD Work Phone: [facility] 07-31-2021 11:02-0400 Body weight 61.24 kg Oliverio Weeks MD Work Phone: [facility] 07-31-2021 11:02-0400 Diastolic blood pressure 105 mm[Hg] Oliverio Weeks MD Work Phone: [facility] 07-31-2021 11:02-0400 Heart rate 86 /min Oliverio Weeks MD Work Phone: [facility] 07-31-2021 11:02-0400 Respiratory rate 20 /min Oliverio Weeks MD Work Phone: [facility] 07-31-2021 11:02-0400 SaO2% (BldA) [Mass fraction] 99 % Oliverio Weeks MD Work Phone: [facility] 07-31-2021 11:02-0400 Systolic blood pressure 131 mm[Hg] Oliverio Weeks MD Work Phone: [facility] 07-31-2021 07:21-0400 Body height 157.48 cm MD Huma Barone Work Phone: [facility] 07-31-2021 07:21-0400 Body mass index (BMI) [Ratio] 24.7 kg/m2 MD Huma Barone Work Phone: [facility] 07-31-2021 07:21-0400 Body temperature 97.8 [degF] MD Huma Barone Work Phone: [facility] 07-31-2021 07:21-0400 Body weight 61.23 kg MD Huma Barone Work Phone: [facility] 07-31-2021 07:21-0400 Diastolic blood pressure 78 mm[Hg] MD Huma Barone Work Phone: [facility] 07-31-2021 07:21-0400 Heart rate 72 /min MD Huma Barone Work Phone: [facility] 07-31-2021 07:21-0400 Respiratory rate 18 /min MD Huam Barone Work Phone: [facility] 07-31-2021 07:21-0400 SaO2% (BldA) [Mass fraction] 99 % MD Huma Barone Work Phone: [facility] 07-31-2021 07:21-0400 Systolic blood pressure 130 mm[Hg] MD Huma Barone Work Phone: [facility] 07-25-2021 13:21-0400 Body temperature 98.06 [degF] [facility] 07-25-2021 13:21-0400 Diastolic blood pressure 78 mm[Hg] [facility] 07-25-2021 13:21-0400 Heart rate 96 /min [facility] 07-25-2021 13:21-0400 Respiratory rate 16 /min [facility] 07-25-2021 13:21-0400 SaO2% (BldA) [Mass fraction] 96 % [facility] 07-25-2021 13:21-0400 Systolic blood pressure 120 mm[Hg] [facility] 07-04-2021 23:22-0400 Body temperature 98.24 [degF] Ishmael Jim [facility] 07-04-2021 23:22-0400 Diastolic blood pressure 94 mm[Hg] Ishmael Jim [facility] 07-04-2021 23:22-0400 Heart rate 75 /min Ishmael Jim [facility] 07-04-2021 23:22-0400 Respiratory rate 15 /min Ishmael Jim [facility] 07-04-2021 23:22-0400 SaO2% (BldA) [Mass fraction] 96 % Ishmael Jim [facility] 07-04-2021 23:22-0400 Systolic blood pressure 131 mm[Hg] Ishmael Fernandez [facility] 08-04-2020 07:26-0400 Body height 157.5 cm Jason Miller MD Work Phone: [employer] Work Phone: 08-04-2020 07:26-0400 Body mass index (BMI) [Ratio] 31.59 kg/m2 Jason Miller MD Work Phone: [employer] Work Phone: 08-04-2020 07:26-0400 Body temperature 98.01 [degF] Jason Miller MD Work Phone: [employer] Work Phone: 08-04-2020 07:26-0400 Body weight 78.34 kg Jason Miller MD Work Phone: [employer] Work Phone: 08-04-2020 07:26-0400 Diastolic blood pressure 86 mm[Hg] Jason Miller MD Work Phone: [employer] Work Phone: 08-04-2020 07:26-0400 Heart rate 74 /min Jsaon Miller MD Work Phone: [employer] Work Phone: 08-04-2020 07:26-0400 Respiratory rate 16 /min Jason Miller MD Work Phone: [employer] Work Phone: 08-04-2020 07:26-0400 SaO2% (BldA) [Mass fraction] 97 % Jason Miller MD Work Phone: [employer] Work Phone: 08-04-2020 07:26-0400 Systolic blood pressure 125 mm[Hg] Jason Miller MD Work Phone: [employer] Work Phone: 03-04-2019 09:34-0500 Body height 157.5 cm Quintin Corona MD Work Phone: [employer] Work Phone: 03-04-2019 09:34-0500 Body mass index (BMI) [Ratio] 24.69 kg/m2 Quintin Corona MD Work Phone: [employer] Work Phone: 03-04-2019 09:34-0500 Body temperature 97.5 [degF] Quintin Corona MD Work Phone: [employer] Work Phone: 03-04-2019 09:34-0500 Body weight 61.24 kg Quintin Corona MD Work Phone: [employer] Work Phone: 03-04-2019 09:34-0500 Diastolic blood pressure 83 mm[Hg] Quintin Corona MD Work Phone: [employer] Work Phone: 03-04-2019 09:34-0500 Heart rate 97 /min Quintin Corona MD Work Phone: [employer] Work Phone: 03-04-2019 09:34-0500 Respiratory rate 16 /min Quintin Corona MD Work Phone: [employer] Work Phone: 03-04-2019 09:34-0500 SaO2% (BldA) [Mass fraction] 100 % Quintin Corona MD Work Phone: [employer] Work Phone: 03-04-2019 09:34-0500 Systolic blood pressure 131 mm[Hg] Quintin Corona MD Work Phone: [employer] Work Phone: 12-03-2018 10:28-0400 BMI (Body Mass Index) 24.69 kg/m2 Linda Rena [facility], [place] 12-03-2018 10:28-0400 Body Temperature 98.29 [degF] Linda Banegas [facility], [place] 12-03-2018 10:28-0400 Body weight 61.24 kg Linda Banegas [facility] , [place] 12-03-2018 10:28-0400 BP Diastolic 81 mm[Hg] Linda Chase [facility] , [place] 12-03-2018 10:28-0400 BP Systolic 126 mm[Hg] Linda Chase [facility] , [place] 12-03-2018 10:28-0400 Height 157.5 cm Linda Chase [facility] , [place] 12-03-2018 10:28-0400 Pulse (Heart Rate) 84 /min Linda Banegas [facility], [place] 12-03-2018 10:28-0400 Pulse Oximetry 98 % Linda Chase [facility] , [place] 12-03-2018 10:28-0400 Respiratory Rate 16 /min [facility] [place] 11-19-2018 10:15-0400 Body Temperature 97.39 [degF] Cas Miller [facility], [place] 11-19-2018 10:15-0400 BP Diastolic 77 mm[Hg] Cas [facility] , [place] 11-19-2018 10:15-0400 BP Systolic 120 mm[Hg] Cas [facility] [place] 11-19-2018 10:15-0400 Pulse (Heart Rate) 77 /min Cas [facility] 11-19-2018 10:15-0400 Pulse Oximetry 99 % Cas [facility] [place] 11-19-2018 10:15-0400 Respiratory Rate 16 /min Cas [facility], [place] 11-16-2018 05:40-0400 BMI (Body Mass Index) 24.69 kg/m2 [facility] [place] 11-16-2018 05:40-0400 Body Temperature 97.59 [degF] [facility] [place] 11-16-2018 05:40-0400 Body weight 61.24 kg Shan [facility] , [place] 11-16-2018 05:40-0400 BP Diastolic 73 mm[Hg] [facility] [place] 11-16-2018 05:40-0400 BP Systolic 137 mm[Hg] Shan [facility] , [place] 11-16-2018 05:40-0400 Height 157.5 cm [facility] [place] 11-16-2018 05:40-0400 Pulse (Heart Rate) 76 /min [facility] [place] 11-16-2018 05:40-0400 Pulse Oximetry 100 % [facility] [place] 11-16-2018 05:40-0400 Respiratory Rate 16 /min [facility] [place] 10-29-2018 09:42-0400 Body Temperature 98.2 [degF] [facility] [place] 10-29-2018 09:42-0400 BP Diastolic 84 mm[Hg] [facility] [place] 10-29-2018 09:42-0400 BP Systolic 146 mm[Hg] [facility] [place] 10-29-2018 09:42-0400 Pulse (Heart Rate) 92 /min [facility] [place] 10-29-2018 09:42-0400 Pulse Oximetry 100 % [facility] [place] 10-29-2018 09:42-0400 Respiratory Rate 16 /min [facility] [place] 10-22-2018 12:17-0400 BP Diastolic 73 mm[Hg] [facility] [place] 10-22-2018 12:17-0400 BP Systolic 109 mm[Hg] [facility] [place] 10-22-2018 12:17-0400 Pulse (Heart Rate) 95 /min [facility] [place] 10-20-2018 10:45-0400 BP Diastolic 78 mm[Hg] Arnol Galan [facility] 10-20-2018 10:45-0400 BP Systolic 116 mm[Hg] Arnol [facility] 10-20-2018 10:45-0400 Pulse (Heart Rate) 80 /min Arnol [facility] 10-20-2018 10:45-0400 Pulse Oximetry 98 % Arnol [facility] 10-20-2018 10:45-0400 Respiratory Rate 18 /min Arnol [facility] 10-20-2018 10:12-0400 BMI (Body Mass Index) 31.46 kg/m2 Arnol [facility] 10-20-2018 10:120400 Body Temperature 97.81 [degF] Arnol [facility] 10-20-2018 10:12-0400 Body weight 78.02 kg Arnol [facility] 10-20-2018 10:120400 Height 157.5 cm Arnol [facility] 10-17-2018 23:21-0400 BMI (Body Mass Index) 24.69 kg/m2 [facility] 10-17-2018 23:21-0400 Body Temperature 99 [degF] [facility] 10-17-2018 23:21-0400 Body weight 61.24 kg [facility] [place] 10-17-2018 23:21-0400 BP Diastolic 75 mm[Hg] [facility] [place] 10-17-2018 23:21-0400 BP Systolic 138 mm[Hg] [facility] [place] 10-17-2018 23:21-0400 Height 157.5 cm [facility] [place] 10-17-2018 23:21-0400 Pulse (Heart Rate) 99 /min [facility] 10-17-2018 23:21-0400 Pulse Oximetry 100 % [facility] [place] 10-17-2018 23:21-0400 Respiratory Rate 18 /min [facility] 10-16-2018 08:11-0400 BP Diastolic 81 mm[Hg] [facility] , [place] 10-16-2018 08:11-0400 BP Systolic 114 mm[Hg] [facility] , [place] 10-16-2018 08:11-0400 Pulse (Heart Rate) 74 /min Shan Banegas [facility], [place] 10-16-2018 08:11-0400 Respiratory Rate 16 /min Shan Banegas [facility], [place] 10-03-2018 08:00-0400 Body Temperature 97.81 [degF] Marielos Moraes [facility], [place] 10-03-2018 08:00-0400 BP Diastolic 67 mm[Hg] Marielos Mroaes [facility] , [place] 10-03-2018 08:00-0400 BP Systolic 105 mm[Hg] [facility] [place] 10-03-2018 08:00-0400 Pulse (Heart Rate) 77 /min Marielos Moraes [facility], [place] 10-03-2018 08:00-0400 Pulse Oximetry 98 % Marielos Moraes [facility] , [place] 10-03-2018 08:00-0400 Respiratory Rate 16 /min Marielos Moraes [facility] 10-01-2018 21:50-0400 BMI (Body Mass Index) 24.69 kg/m2 [facility] [place] 10-01-2018 21:50-0400 Body weight 61.24 kg Marielos Moraes [facility] , [place] 10-01-2018 21:50-0400 Height 157.5 cm [place] Encounters Encounter Date Encounter Type Care Provider Facility Start: 03-04-2023 End: 03-04-2023 ambulatory Shan Rivas Facility:[facility] Start: 03-04-2023 End: 03-04-2023 Emergency department patient visit BETH DIANA [facility] Start: 02-21-2023 End: 02-21-2023 ambulatory Niesha Duffy Other [employer] Other Start: 02-21-2023 Office outpatient vi sit 15 minutes Niesha Duffy [facility] Start: 02-18-2023 Emergency department patient visit DELIO BOLES [facility] Start: 02-10-2023 End: 02-10-2023 Emergency department patient visit [facility] Start: 02-06-2023 End: 02-06-2023 Emergency department patient visit BETH [facility] Start: 02-03-2023 End: 02-03-2023 Emergency department patient visit Grant Dos Santos Facility:[facility] Start: 02-03-2023 End: 02-03-2023 Emergency department patient visit Grant Dos Santos [facility] Start: 01-30-2023 End: 01-30-2023 Emergency department patient visit Shan Whitlockprem DO Facility:[facility] Start: 01-16-2023 End: 01-16-2023 Emergency department patient visit Shan Campuzano Evelyn DO Facility:[facility] Start: 01-10-2023 End: 01-10-2023 Emergency department patient visit Matt Germanhetal Facility:[facility] Start: 01-10-2023 End: 01-10-2023 Emergency department patient visit Matt Pena [facility] Start: 12-22-2022 End: 12-22-2022 Emergency department patient visit Shan Vieirajenna DO Facility:[facility] Start: 12-18-2022 End: 12-19-2022 Emergency department patient visit Shan Vieirajenna DO Facility:[facility] Start: 12-09-2022 End: 12-09-2022 Emergency department patient visit Shan Vieirare DO Facility:[facility] Start: 12-06-2022 End: 12-06-2022 Emergency department patient visit Shan Whitlockprem DO Facility:[facility] Start: 12-05-2022 End: 12-06-2022 Emergency department patient visit Serina Martinez MD Facility:[facility] Start: 12-05-2022 End: 12-05-2022 [facility] Start: 12-03-2022 End: 12-03-2022 Emergency department patient visit Shan Vieirajenna DO Facility:[facility] Start: 11-30-2022 End: 11-30-2022 Emergency department [facility] Start: 11-28-2022 End: 11-28-2022 Emergency department patient visit Shan Rivas DO Facility:[facility] Start: 11-21-2022 ambulatory Scar Julian Facility:[facility] Start: 11-21-2022 End: 11-21-2022 Emergency department patient visit Shan Rivas DO Facility:[facility] Start: 11-21-2022 End: 11-21-2022 Emergency department patient visit [facility] Start: 11-20-2022 End: 11-20-2022 Emergency department patient visit Alan Zhu Facility:[facility] Start: 11-19-2022 Emergency department patient visit Grant Dos Santos Facility:[facility] Start: 11-18-2022 End: 11-18-2022 Emergency department patient visit Rodríguez STAPLES~[id number] GERRI FLY [facility] Start: 11-17-2022 Emergency department patient [facility] Start: 11-16-2022 End: 11-16-2022 Emergency department patient visit Luisa Delaney Facility:[facility] Start: 11-14-2022 End: 11-14-2022 Emergency department patient visit Matt Laura Becky Facility:[facility] Start: 11-14-2022 End: 11-14-2022 [facility] Start: 11-13-2022 End: 11-13-2022 ambulatory Shan Rivas DO Facility:[facility] Start: 11-13-2022 Emergency department patient [facility] Start: 11-12-2022 End: 11-12-2022 Emergency department patient visit Da Pierce DO Facility:[facility] Start: 11-11-2022 ambulatory [facility] Start: 11-11-2022 End: 11-11-2022 Subsequent hospital visit by physician [facility] Walk [facility] Comment on above: URI with cough and c ongestion Start: 11-11-2022 End: 11-11-2022 Emergency department patient [facility] Start: 11-11-2022 End: 11-11-2022 Emergency department patient visit Coy Zuñiga MD Facility:[facility] Start: 11-11-2022 End: 11-11-2022 Emergency department patient visit Da Pierce DO Facility:[facility] Start: 11-09-2022 End: 11-09-2022 Emergency department patient visit [facility] Start: 11-06-2022 End: 11-06-2022 Emergency department patient visit Austin Grey MD Facility:[facility] Start: 11-04-2022 End: 11-04-2022 Emergency department patient [facility] Start: 11-02-2022 End: 11-02-2022 Emergency department patient visit [facility] Start: 11-02-2022 End: 11-02-2022 Emergency department patient visit Marito Jason MD Work Phone: [facility] ED Comment on above: Swelling of both ank les (Primary Dx) Start: 10-31-2022 End: 10-31-2022 Emergency department patient visit DO Coy Day Work Phone: [facility] Work Phone: Start: 10-29-2022 End: 10-30-2022 Emergency department patient [facility] Start: 10-29-2022 End: 10-29-2022 Emergency department patient visit Ev Barahona DO Work Phone: [facility] ED Comment on above: Chronic pain of righ t wrist (Primary Dx) Start: 10-28-2022 End: 10-28-2022 Emergency department patient visit Grant Dos Santos Facility:[facility] Start: 10-25-2022 End: 10-27-2022 Evaluation and management of inpatient Miguelangel Zhou Facility:[facility] Start: 10-25-2022 End: 10-27-2022 Evaluation and management of inpatient DO Coy Day Work Phone: [facility] Work Phone: Start: 10-24-2022 Emergency department patient visit BETH [facility] Start: 10-24-2022 End: 10-24-2022 Emergency department patient visit Beth Ortiz BUSINESS PROCESS REPRESENTATIVE - COMMERCIAL AGENT Work Phone: [facility] ED Comment on above: Right wrist pain (Pr imary Dx); History of anxiety Start: 10-23-2022 End: 10-23-2022 Emergency department patient visit BETH [facility] Start: 10-21-2022 End: 10-21-2022 Emergency department patient visit Ofelia Leigh MD Facility:[facility] Start: 10-18-2022 End: 10-18-2022 Emergency department patient visit Dom Mcmahon II DO Facility:[facility] Start: 10-14-2022 End: 10-14-2022 Emergency department patient visit [facility] Facility:[facility] Start: 10-14-2022 End: 10-14-2022 Emergency department patient visit Grant Dos Santos [facility] Start: 10-11-2022 End: 10-11-2022 Emergency department patient visit Da Pierce DO Facility:[facility] Start: 10-04-2022 End: 10-04-2022 Emergency department patient visit Serina Martinez MD Facility:[facility] Start: 10-03-2022 End: 10-03-2022 Emergency department [facility] Start: 10-03-2022 End: 10-03-2022 Emergency department patient visit Beth Ortiz BUSINESS PROCESS REPRESENTATIVE - COMMERCIAL AGENT Work Phone: [facility] ED Start: 09-30-2022 End: 10-01-2022 ambulatory Nakul Watkins MD Facility:[facility] Start: 09-29-2022 End: 09-29-2022 Emergency department patient visit Nakul Watkins MD Facility:[facility] Start: 09-23-2022 End: 09-23-2022 ambulatory Coy Day Facility:[facility] Start: 09-23-2022 End: 09-23-2022 Patient encounter procedure DO Coy Oleshin Work Phone: [facility] Work Phone: Start: 09-20-2022 End: 09-20-2022 Emergency department patient visit Luisa Delaney DO Facility:[facility] Start: 09-19-2022 Emergency department patient visit MARITO JASON [facility] Start: 09-19-2022 End: 09-19-2022 Emergency department patient visit Marito Jason MD Work Phone: [facility] ED Comment on above: Bilateral acute sero us otitis media, recurrence not specified (Primary Dx); Acute recurrent pansinusitis Start: 09-18-2022 End: 09-18-2022 ambulatory BETH ORTIZ [facility] Start: 09-16-2022 End: 09-16-2022 Emergency department patient visit Grant Dos Santos Facility:[facility] Start: 09-16-2022 End: 09-16-2022 Emergency department patient visit Grant Dos Santos [facility] Start: 09-12-2022 End: 09-12-2022 Emergency department patient visit Austin Grey MD Facility:[facility] Start: 09-09-2022 End: 09-09-2022 ambulatory DA PIERCE [facility] Start: 09-07-2022 Emergency department patient visit J~[id number] CHITO~[id number] SHREYA CARRENO [facility] Start: 09-07-2022 End: 09-07-2022 Emergency department patient visit Chito Staples MD Work Phone: [facility] ED Comment on above: Lightheadedness (Romina raheem Dx) Start: 09-06-2022 End: 09-06-2022 Emergency department patient visit Raheem Villa MD Facility:[facility] Start: 09-04-2022 End: 09-04-2022 Emergency department patient visit Luisa Delaney DO Facility:[facility] Start: 09-04-2022 Emergency department patient visit COY J [facility] Start: 09-02-2022 End: 09-02-2022 Emergency department patient visit COY Aponte [facility] Start: 08-30-2022 End: 08-31-2022 ambulatory BETH ORTIZ Facility:[facility] Start: 08-28-2022 End: 08-28-2022 Emergency department patient visit Alan Zhu Facility:[facility] Start: 08-28-2022 End: 08-28-2022 Emergency department patient visit Alan Zhu [facility] Start: 08-24-2022 End: 08-24-2022 Emergency department patient visit COY Aponte [facility] Start: 08-22-2022 End: 08-22-2022 [facility] Start: 08-21-2022 End: 08-21-2022 Emergency department patient visit COY J [facility] Start: 08-19-2022 End: 08-19-2022 Emergency department patient visit COY J [facility] Start: 08-19-2022 End: 08-19-2022 [facility] Comment on above: Dizziness (Primary D x) Start: 08-16-2022 End: 08-16-2022 Emergency department patient visit VOLGA Fay [facility] Start: 08-16-2022 End: 08-16-2022 [facility] Start: 08-14-2022 End: 08-15-2022 Emergency department patient visit Beth Adaabrahan Powell BUSINESS PROCESS REPRESENTATIVE-BILINGUAL LOAN PROCESSOR Facility:[facility] Start: 08-14-2022 End: 08-14-2022 Emergency department patient visit Alan Zhu Facility:[facility] Start: 08-14-2022 End: 08-14-2022 Emergency department patient visit Alan hZu [facility] Start: 08-08-2022 End: 08-08-2022 ambulatory Betsy Duran PA-C Facility:[facility] Start: 08-07-2022 End: 08-07-2022 Emergency department patient visit VOLGA Fay [facility] Start: 08-06-2022 End: 08-06-2022 Emergency department patient visit [facility] DO Work Phone: [facility] ED Start: 08-05-2022 End: 08-05-2022 Emergency department patient visit VOLGA Fay [facility] Start: 08-05-2022 End: 08-05-2022 Emergency department patient visit Coy [facility] Work Phone: [facility] Comment on above: Dizziness (Primary D x) Start: 08-01-2022 End: 08-01-2022 ambulatory [facility] Start: 07-30-2022 End: 07-30-2022 Emergency department patient visit COY J [facility] Start: 07-30-2022 End: 07-30-2022 Emergency department patient visit Coy [facility] DO Work Phone: [facility] ED Comment on above: Dizziness (Primary D x) Start: 07-28-2022 End: 07-29-2022 Emergency department patient visit Rodríguez STAPLES~[id number] GERRI MUÑOZ [facility] Start: 07-28-2022 End: 07-28-2022 Emergency department patient visit Jhoan Galeano MD [facility] ED Comment on above: Traumatic ecchymosis of buttock, initial encounter (Primary Dx) Start: 07-22-2022 End: 07-22-2022 Emergency department patient visit Grant Dos Santos Facility:[facility] Start: 07-20-2022 End: 07-20-2022 Emergency department patient visit DO Edwin Jolley Facility:[facility] Start: 07-19-2022 End: 07-20-2022 Emergency department patient visit Coy Day Facility:[facility] Start: 07-19-2022 End: 07-19-2022 Emergency department patient visit Alan Zhu Facility:[facility] Start: 07-16-2022 End: 07-16-2022 Emergency department patient visit Grant Eden MD Facility:[facility] Start: 07-14-2022 End: 07-14-2022 Emergency department patient visit DO Edwin Jolley Facility:[facility] Start: 07-14-2022 End: 07-14-2022 Emergency department patient visit Edwin Terrell [facility] Start: 07-11-2022 Emergency department patient visit COY DAY [facility] Start: 07-11-2022 End: 07-11-2022 Emergency department patient visit Coy Zuñiga MD Work Phone: [facility] ED Comment on above: Acute recurrent maxi llary sinusitis (Primary Dx); Chest wall pain Start: 07-10-2022 Emergency department patient visit RAUL SOLITARIO [facility] Start: 07-10-2022 End: 07-10-2022 Emergency department patient visit Raul Solitario MD Work Phone: [facility] ED Comment on above: Anxiety state (Prima ry Dx) Start: 07-07-2022 End: 07-07-2022 Emergency department patient visit Ishmael Fernandez Facility:[facility] Start: 07-07-2022 End: 07-07-2022 Emergency department patient visit Ishmael Fernandez [facility] Start: 06-20-2022 End: 06-20-2022 Emergency department patient visit [facility] Start: 06-18-2022 End: 06-18-2022 Emergency department patient visit Grant Dos Santos Facility:[facility] Start: 06-12-2022 End: 06-12-2022 Emergency department patient visit OLIVERIO WEEKS [facility] Start: 06-12-2022 End: 06-12-2022 Emergency department patient visit Oliverio Weeks MD Work Phone: [facility] ED Comment on above: Lightheadedness (Romina raheem Dx); Anemia, unspecified type Start: 06-12-2022 End: 06-12-2022 ambulatory [facility] Start: 06-11-2022 End: 06-11-2022 ambulatory RAUL SOLITARIO . Facility: Start: 06-06-2022 End: 06-06-2022 ambulatory ESTUARDO SAWYER . Facility: Start: 06-03-2022 End: 06-03-2022 ambulatory Dom Alliance Other [employer] Other Start: 06-03-2022 Office outpatient ne w 20 minutes Dom Alliance [facility] Start: 05-30-2022 End: 05-31-2022 Emergency department patient visit Ishmael Fernandez Facility:[facility] Start: 05-30-2022 End: 05-30-2022 Emergency department patient visit Ishmael Fernandez [facility] Start: 05-30-2022 End: 05-30-2022 Emergency department patient visit Provider Miesha Facility:[facility] Start: 05-29-2022 End: 05-29-2022 Emergency department patient visit Monica Mondragon Facility:[facility] Start: 05-29-2022 End: 05-29-2022 Emergency department patient visit PHYSICIAN JANEEN STEPHENS [facility] Work Phone: Start: 05-21-2022 End: 05-21-2022 ambulatory ESTUARDO SAWYER . Facility: Start: 05-17-2022 End: 05-17-2022 Emergency department patient visit Bertin Fernandes Facility:[facility] Start: 05-15-2022 End: 05-15-2022 ambulatory ESTUARDO SAWYER . Facility: Start: 05-12-2022 End: 05-12-[address] NONE LISTED REQUEST Facility: Start: 05-09-2022 End: 05-10-2022 ambulatory BILINGUAL LOAN PROCESSOR YARELY SLAVA KEVINSHANNON Facility:[facility] Start: 05-07-2022 End: 05-07-2022 Emergency department patient visit Grant Dos Santos Facility:[facility] Start: 05-07-2022 End: 05-07-2022 Emergency department patient visit Grant Dos Santos [facility] Start: 04-25-2022 End: 04-25-2022 Emergency department patient visit Shan Rivas DO Facility:[facility] Start: 04-22-2022 End: 04-22-2022 ambulatory GINETTE HARRIS Facility: Start: 04-09-2022 End: 04-09-[address] NONE LISTED REQUEST Facility: Start: 03-29-2022 End: 03-29-2022 Emergency department patient visit Alan Zhu Facility:[facility] Start: 03-29-2022 End: 03-29-2022 Emergency department patient visit Dat WILSON [facility] Start: 03-14-2022 End: 03-14-2022 Emergency department patient visit Alan Zhu Facility:[facility] Start: 03-14-2022 End: 03-14-2022 Emergency department patient visit Alan Zhu [facility] Start: 01-29-2022 End: 01-29-2022 Emergency department patient visit Ishmael Fernandez [facility] Start: 01-15-2022 End: 01-15-2022 Emergency department patient visit Grant Dos Santos [facility] Start: 12-23-2021 End: 12-23-[address] CARTER LISTED REQUEST Facility: Start: 12-05-2021 End: 12-05-2021 Emergency department patient visit Oliverio Weeks MD Work Phone: [facility] ED Comment on above: Depression with suic idal ideation (Primary Dx) Start: 12-04-2021 End: 12-04-2021 Emergency department patient visit Alan Zhu [facility] Start: 11-30-2021 End: 11-30-2021 Emergency department patient visit Alan Zhu [facility] Start: 11-20-2021 End: 11-20-2021 Emergency department patient visit Bertin Dom [facility] Start: 11-20-2021 End: 11-20-[address] ARAVIND UNDERWOOD Facility: Start: 11-18-2021 End: 11-19-2021 Emergency department patient visit Physician Janeen Stephens [facility] Start: 11-18-2021 End: 11-18-2021 Emergency department patient visit [facility] Comment on above: Suicidal ideation (P rimary Dx) Start: 11-18-2021 End: 11-18-2021 Emergency department patient visit Jose Lowery MD Work Phone: [facility] ED Comment on above: Anxiety attack (Prim zach Dx); Other depression Start: 11-14-2021 End: 11-14-2021 Emergency department patient visit Ishmael Fernandez [facility] Start: 11-08-2021 End: 11-08-[address] MAGI HAGAN . Facility:[facility] Start: 11-08-2021 End: 11-08-2021 Emergency department patient visit Edwin Jolley [facility] Start: 11-07-2021 End: 11-07-[address] CHITO ALFREDO Facility:[facility] Start: 11-06-2021 End: 11-06-[address] CHITO ALFREDO Facility:[facility] Start: 11-01-2021 End: 11-01-2021 ambulatory NONE LISTED REQUEST Facility:[facility] Start: 10-08-2021 End: 10-10-2021 Evaluation and management of inpatient MD Huma Barone Work Phone: [facility] Start: 10-07-2021 End: 10-08-2021 Emergency department patient visit Leonardchristophe Sanchez Becky [facility] Start: 10-07-2021 End: 10-07-[address] NONE LISTED REQUEST Facility:[facility] Start: 10-07-2021 End: 10-07-2021 Emergency department patient visit Edwin Jolley [facility] Start: 10-06-2021 End: 10-06-2021 Emergency department patient visit Edwin Jolley [facility] Start: 10-04-2021 End: 10-05-2021 Emergency department patient visit Bertin Fernandes [facility] Start: 10-02-2021 End: 10-02-2021 ambulatory GINETTE HARRIS Facility:[facility] Start: 10-02-2021 End: 10-02-2021 Emergency department patient visit Grant Dos Santos [facility] Start: 09-30-2021 End: 09-30-2021 Emergency department patient visit Matt Pena [facility] Start: 09-21-2021 End: 09-24-2021 Evaluation and management of inpatient MD Huma Barone Work Phone: [facility] Start: 09-20-2021 End: 09-21-[address] DOCTOR JC Facility:[facility] Start: 08-28-2021 End: 08-28-2021 ambulatory GINETTE HARRIS Facility:[facility] Start: 08-22-2021 End: 08-23-2021 Emergency department patient visit Ishmael Fernandez [facility] Start: 08-21-2021 End: 08-21-[address] CHITO ALFREDO Facility:[facility] Start: 08-15-2021 End: 08-17-2021 Evaluation and management of inpatient MD Huma Barone Work Phone: [facility] Start: 08-15-2021 End: 08-15-2021 ambulatory GINETTE STEVEN Facility:[facility] Start: 08-14-2021 End: 08-14-2021 ambulatory GINETTE STEVEN Facility:[facility] Start: 08-07-2021 End: 08-07-2021 Emergency department patient visit Grant Dos Santos [facility] Start: 08-06-2021 End: 08-06-2021 Emergency department patient visit Chito Staples MD Work Phone: [facility] ED Comment on above: Diarrhea, unspecifie d type (Primary Dx); Nonintractable episodic headache, unspecified headache type Start: 07-31-2021 End: 07-31-2021 Emergency department patient visit Oliverio Weeks MD Work Phone: [facility] ED Comment on above: Acute non-recurrent maxillary sinusitis (Primary Dx) Start: 07-31-2021 End: 07-31-2021 Emergency department patient visit MD Huma Barone Work Phone: [facility] Start: 07-25-2021 End: 07-25-2021 Emergency department patient visit Matt Pena [facility] Start: 07-04-2021 End: 07-05-2021 Emergency department patient visit Ishmael MataShalom Fernandez [facility] Start: 08-04-2020 End: 08-04-2020 Emergency department patient visit Jason Miller MD Work Phone: [facility] ED Comment on above: Acute sinusitis, rec urrence not specified, unspecified location (Primary Dx) Start: 05-23-2020 End: 05-24-2020 Patient encounter procedure [facility] [facility] Start: 05-23-2020 End: 05-23-2020 Subsequent hospital visit by physician Shan Cherrylay [facility] Comment on above: Irregular menses Start: 03-04-2019 End: 03-04-2019 Emergency department patient visit Quintin Corona MD Work Phone: [facility] EMERGENCY DEPT Comment on above: Suicidal ideation (P rimary Dx) Start: 12-03-2018 End: 12-03-2018 Emergency department patient visit Linda Rena Work Phone: [facility] EMERGENCY DEPT Comment on above: Depression, unspecif ied depression type (Primary Dx) Start: 11-19-2018 Patient encounter procedure Shan Rivas [employer], JOVANNI Start: 11-19-2018 End: 11-19-2018 Emergency department patient visit Cas Miller Work Phone: [facility] EMERGENCY DEPT Comment on above: Suicidal thoughts (P rimary Dx); Episode of recurrent major depressive disorder, unspecified depression episode severity (HCC) Start: 11-16-2018 Patient encounter procedure Shan Rivas [employer], JOVANNI Start: 11-16-2018 Telephone encounter Marielos rojas Work Phone: [facility] Comment on above: Other Start: 11-16-2018 End: 11-16-2018 Emergency department patient visit [facility] EMERGENCY DEPT Comment on above: Anxiety (Primary Dx) Start: 10-29-2018 Patient encounter procedure Shan Whitlockwijenna [facility], JOVANNI Start: 10-29-2018 End: 10-29-2018 Emergency department patient visit [facility] EMERGENCY DEPT Comment on above: Depression, unspecif ied depression type (Primary Dx); Anxiety Start: 10-27-2018 Subsequent hospital visit by physician Shan Rivas [facility] Start: 10-20-2018 Emergency department patient visit ARNOL GALAN [facility] Start: 10-20-2018 End: 10-20-2018 Emergency department patient visit Arnol Anand Galan Work Phone: [facility] Emergency Department Comment on above: Edema, unspecified t ype (Primary Dx) Start: 10-17-2018 End: 10-18-2018 Emergency department patient visit Dat Mcnamara Work Phone: [facility] EMERGENCY DEPT Comment on above: Depression, unspecif ied depression type (Primary Dx) Start: 10-17-2018 Patient encounter procedure Shan Whitlockwijenna [facility], JOVANNI Start: 10-13-2018 Telephone encounter Marielos Booker buddakotah Work Phone: [facility] Comment on above: Other Start: 10-06-2018 Patient encounter procedure Marielos Moraes [facility] Comment on above: N/A Start: 10-05-2018 Telephone encounter Marielos Booker buddakotah Work Phone: [facility] Comment on above: Other Start: 10-02-2018 Patient encounter procedure Marielos Moraes [facility], JOVANNI Start: 10-01-2018 Patient encounter procedure Marielos Moraes [facility], JOVANNI Start: 10-01-2018 Telephone encounter Deidre Contreras [facility] Comment on above: Other (work release letter) Start: 09-28-2018 End: 10-02-2018 Patient encounter procedure SHELBIE Aponte [facility] Start: 09-25-2018 Refill Marielos Deal gricelda Work Phone: [facility] Comment on above: Medication Refill Start: 09-24-2018 End: 09-24-2018 Office outpatient visit 15 minutes [employer] Work Phone: [facility] Comment on above: Bruise of breast (Pr imary Dx); Atopic dermatitis, unspecified type Start: 09-23-2018 Telephone encounter Marielos rojas Work Phone: [facility] Comment on above: Other Start: 09-18-2018 End: 09-18-2018 Office outpatient visit 15 minutes [place] Work Phone: [facility] Comment on above: Chest tightness (Romina raheem Dx); Anxiety; Chronic frontal sinusitis Start: 09-14-2018 Telephone encounter Marielos rojas Work Phone: [facility] Comment on above: Other Start: 09-09-2018 Refill Marielosanders Deal gricelda Work Phone: [facility] Comment on above: Medication Refill Start: 09-08-2018 Telephone encounter Marielos rojas Work Phone: [facility] Comment on above: [facility] Start: 09-06-2018 Patient encounter procedure Marielos Moraes [facility] Admitting Comment on above: N/A Start: 08-31-2018 End: 08-31-2018 Office outpatient visit 25 minutes Marielos Moraes Work Phone: [facility] Comment on above: Anxiety (Primary Dx) ; Depression, unspecified depression type; Chest tightness; Dizziness, psychogenic; Insomnia, unspecified type Start: 08-31-2018 Telephone encounter Marielos rojas Work Phone: [facility] Comment on above: Appointment Requeste d Start: 08-28-2018 Refill Marielos madison Work Phone: [facility] Comment on above: Medication Refill Start: 08-24-2018 Telephone encounter Marielos rojas Work Phone: [facility] Comment on above: Other Start: 08-20-2018 Telephone encounter Marielos rojas Work Phone: [facility] Comment on above: Other Start: 08-18-2018 [facility] Start: 08-18-2018 End: 08-18-2018 Emergency department patient visit [facility] EMERGENCY DEPT Comment on above: Anxiety disorder, un specified type (Primary Dx); Chronic pansinusitis Start: 08-17-2018 End: 08-17-2018 Office outpatient visit 25 minutes Marielos Moraes Work Phone: [facility] Comment on above: Anxiety (Primary Dx) ; Current severe episode of major depressive disorder without psychotic features, unspecified whether recurrent (HCC); Overweight (BMI 25.0-29.9) Start: 08-10-2018 Patient encounter [facility] Start: 08-10-2018 End: 08-10-2018 Office outpatient visit 25 minutes Niki Godfrey Work Phone: [facility] Comment on above: Depression, unspecif ied depression type (Primary Dx); Anxiety Start: 08-07-2018 Patient encounter [facility] Start: 08-07-2018 Telephone encounter Marielos rojas Work Phone: [facility] Comment on above: Other Start: 08-07-2018 End: 08-07-2018 Emergency department patient visit Carlos Banuelos Work Phone: [facility] EMERGENCY DEPT Comment on above: Anxiety (Primary Dx) Start: 08-06-2018 End: 08-07-2018 Emergency department patient visit Marielos Moraes [facility] EMERGENCY DEPT Comment on above: Depression, unspecif ied depression type (Primary Dx) Start: 08-06-2018 End: 08-06-2018 Emergency department patient visit Andreas Bhandari Work Phone: [facility] EMERGENCY DEPT Comment on above: Depression, unspecif ied depression type (Primary Dx) Start: 08-06-2018 Patient encounter procedure Marielos Moraes [facility] [place] Start: 08-06-2018 Telephone encounter Marielos rojas Work Phone: [facility] Comment on above: Other Start: 08-05-2018 End: 08-05-2018 Office outpatient visit 15 minutes Sarahtyler Morales Work Phone: [facility] Comment on above: Acute bacterial sinu sitis (Primary Dx) Start: 08-04-2018 Telephone encounter Marielos rojas Work Phone: [facility] Comment on above: Other Start: 08-03-2018 End: 08-03-2018 Office outpatient visit 25 minutes Marielos Moraes Work Phone: [facility] Comment on above: Anxiety (Primary Dx) ; Depression, unspecified depression type; Tachycardia; Chills (without fever) Start: 08-03-2018 Telephone encounter Niki Godfrey Work Phone: [facility] Comment on above: Discuss Medications Start: 08-03-2018 End: 08-03-2018 Office outpatient visit 25 minutes Niki Godfrey Work Phone: [facility] Comment on above: Depression, unspecif ied depression type (Primary Dx); Anxiety Start: 07-31-2018 Telephone encounter Niki Godfrey Work Phone: [facility] Comment on above: Other Start: 07-31-2018 End: 07-31-2018 Nursing evaluation of patient and report Marielos [facility] Comment on above: Screening for HIV (h uman immunodeficiency virus); Lipid screening Start: 07-31-2018 End: 07-31-2018 Office outpatient visit 25 minutes Marielos Moraes Work Phone: [facility] Comment on above: Tachycardia (Primary Dx); Anxiety; Depression, unspecified depression type; Abnormal EKG; Screening for HIV (human immunodeficiency virus); Lipid screening Start: 07-30-2018 Telephone encounter [employer] Work Phone: [facility] Comment on above: Other (appointment ) Start: 07-30-2018 End: 07-30-2018 Office outpatient visit 25 minutes Marielosanders Eubanksman Work Phone: [facility] Comment on above: Anxiety (Primary Dx) ; Depression, unspecified depression type; Tachycardia; Abnormal EKG Start: 07-29-2018 Telephone encounter Movinto Fun RosiDesalitech Work Phone: [facility] Comment on above: Other Start: 07-28-2018 End: 07-28-2018 Office outpatient visit 25 minutes [place] Work Phone: [facility] Comment on above: Tachycardia (Primary Dx); Anxiety; Depression, unspecified depression type Start: 07-27-2018 End: 07-27-2018 Subsequent hospital visit by physician Marielos [facility] Comment on above: Anxiety state (Prima ry Dx); Medication reaction, initial encounter Start: 07-27-2018 Patient encounter procedure Karely Ward [facility] Start: 07-26-2018 Patient encounter procedure Safia Watkins [facility] Start: 07-24-2018 Telephone encounter [place] Work Phone: [facility] Comment on above: Other (follow up 07/02 04/21) Start: 07-22-2018 End: 07-22-2018 Office outpatient visit 25 minutes Niki Godfrey Work Phone: [facility] Comment on above: Anxiety (Primary Dx) ; Depression, unspecified depression type Start: 07-15-2018 Telephone encounter Niki Fay Godfrey Work Phone: [facility] Comment on above: Other Start: 05-19-2017 End: 05-19-2017 Ambulatory Armenandrei Martel Facility:[facility] Procedures Date Procedure Procedure Detail Performing Clinician Start: 11-11-2022 COVID-19 & INFLUENZA COMBO Surekha SALDANA Work Phone: Start: 09-23-2022 Plain X-ray of right wrist DO Coy Oleshin Work Phone: Start: 09-23-2022 Plain X-ray of right hand DO Coy Olewiler Work Phone: Start: 08-19-2022 Ct head/brain w/o co ntrast material Shelbie Kwon PA-C Work Phone: Start: 08-19-2022 Basic metabolic pane l calcium total Shelbie SALDANA-C Work Phone: Start: 08-19-2022 Ecg routine ecg w/le ast 12 lds w/i&r Shelbie Kwon PA-C Work Phone: Start: 08-19-2022 Urinalysis microscopic only Shelbie SALDANA-C Work Phone: Start: 08-19-2022 Urine test visual color cmprsn meths Shelbie Kwon PA-C Work Phone: Start: 08-05-2022 Anion gap [Moles/Vol] U nknown Provider Result Start: 08-05-2022 Comprehensive metabo lic panel Rosangela Osborne BUSINESS PROCESS REPRESENTATIVE - BILINGUAL LOAN PROCESSOR Work Phone: Start: 08-05-2022 GLOMERULAR FILTRATIO N RATE, ESTIMATED Unknown Provider Result Start: 08-05-2022 Ecg routine ecg w/le ast 12 lds w/i&r Rosangela Osborne BUSINESS PROCESS REPRESENTATIVE - BILINGUAL LOAN PROCESSOR Work Phone: Start: 07-11-2022 Radiologic exam ches t 2 views Coy Zuñiga MD Work Phone: Start: 07-11-2022 Ecg routine ecg w/le ast 12 lds w/i&r Coy Zuñiga MD Work Phone: Start: 07-11-2022 Comprehensive metabo lic panel Coy Zuñiga MD Work Phone: Start: 06-12-2022 Urinalysis microscopic only Oliverio Weeks MD Work Phone: Start: 06-12-2022 Urnls dip stick/tabl et rgnt auto w/o microscopy Oliverio Weeks MD Work Phone: Start: 06-12-2022 Comprehensive metabo lic panel Oliverio Weeks MD Work Phone: Start: 11-18-2021 Anion gap [Moles/Vol] N berny Drummond BUSINESS PROCESS REPRESENTATIVE - BILINGUAL LOAN PROCESSOR Work Phone: Start: 11-18-2021 Assay of acetaminophen Gina Drummond BUSINESS PROCESS REPRESENTATIVE - BILINGUAL LOAN PROCESSOR Work Phone: Start: 11-18-2021 Assay of ethanol Gina Drummond BUSINESS PROCESS REPRESENTATIVE - BILINGUAL LOAN PROCESSOR Work Phone: Start: 11-18-2021 Assay of osmolality blood Gina Drummond BUSINESS PROCESS REPRESENTATIVE - BILINGUAL LOAN PROCESSOR Work Phone: Start: 11-18-2021 Assay of salicylate Akbar anuradha Drummond BUSINESS PROCESS REPRESENTATIVE - BILINGUAL LOAN PROCESSOR Work Phone: Start: 11-18-2021 BASIC METABOLIC PANE L W/ REFLEX TO MG FOR LOW K Gina Drummond BUSINESS PROCESS REPRESENTATIVE - BILINGUAL LOAN PROCESSOR Work Phone: Start: 11-18-2021 GLOMERULAR FILTRATIO N RATE, ESTIMATED Gina Drummond BUSINESS PROCESS REPRESENTATIVE - BILINGUAL LOAN PROCESSOR Work Phone: Start: 11-18-2021 End: 11-18-2021 Hepatic function panel Gina MARCELINO RN - BILINGUAL LOAN PROCESSOR Work Phone: Start: 05-23-2020 Gonadotropin chorion ic quantitative Abby Jolley Work Phone: Start: 03-04-2019 Anion gap [Moles/Vol] D bon Corona MD Work Phone: Start: 03-04-2019 Assay of acetaminophen Quintin Corona MD Work Phone: Start: 03-04-2019 Assay of ethanol Quintin Corona MD Work Phone: Start: 03-04-2019 Assay of salicylate Topher josé luis Corona MD Work Phone: Start: 03-04-2019 Basic metabolic pane l calcium total Quintin Corona MD Work Phone: Start: 03-04-2019 GLOMERULAR FILTRATIO N RATE, ESTIMATED Quintin Corona MD Work Phone: Start: 03-04-2019 Hepatic function panel Quintin Corona MD Work Phone: Start: 03-04-2019 SPECIMEN REJECTION Lb jazzy Corona MD Work Phone: Start: 03-04-2019 End: 03-04-2019 Bile acids total Quintin Mcadams BUSINESS PROCESS REPRESENTATIVE - BILINGUAL LOAN PROCESSOR Work Phone: Start: 03-04-2019 Drug screen class list a Quintin Corona MD Work Phone: Start: 03-04-2019 Urnls dip stick/tabl et rgnt auto w/o microscopy Quintin Corona MD Work Phone: Start: 12-03-2018 Anion gap [Moles/Vol] E rajesh Chase Work Phone: Start: 12-03-2018 Assay of acetaminophen Linda Chase Work Phone: Start: 12-03-2018 Assay of ethanol Linda Chase Work Phone: Start: 12-03-2018 Assay of osmolality blood Linda Chase Work Phone: Start: 12-03-2018 Assay of salicylate Jennifer Chase Work Phone: Start: 12-03-2018 Assay of thyroid stimulating hormone tsh Linda Chase Work Phone: Start: 12-03-2018 Blood count complete auto&auto difrntl wbc Linda Chase Work Phone: Start: 12-03-2018 Comprehensive metabo lic panel Linda Chase Work Phone: Start: 12-03-2018 GLOMERULAR FILTRATIO N RATE, ESTIMATED Linda Chase Work Phone: Start: 12-03-2018 Gonadotropin chorion ic qualitative Linda Chase Work Phone: Start: 12-03-2018 Drug screen, single Jennifer Chase Work Phone: Start: 11-19-2018 Anion gap [Moles/Vol] E rajesh Chase Work Phone: Start: 11-19-2018 Assay of acetaminophen Linda Chase Work Phone: Start: 11-19-2018 Assay of ethanol Linda Chase Work Phone: Start: 11-19-2018 Assay of lipase Linda shearer Work Phone: Start: 11-19-2018 Assay of osmolality blood Linda Chase Work Phone: Start: 11-19-2018 Assay of salicylate Jennifer ly Rena Work Phone: Start: 11-19-2018 Assay of thyroid stimulating hormone tsh Linda Chase Work Phone: Start: 11-19-2018 Basic metabolic pane l calcium total Linda Chase Work Phone: Start: 11-19-2018 Blood count complete auto&auto difrntl wbc Linda Chase Work Phone: Start: 11-19-2018 GLOMERULAR FILTRATIO N RATE, ESTIMATED Linda Chase Work Phone: Start: 11-19-2018 Gonadotropin chorion ic qualitative Cas Paul Work Phone: Start: 11-19-2018 Hepatic function panel Linda Chase Work Phone: Start: 11-19-2018 Drug screen class list a Linda Chase Work Phone: Start: 11-19-2018 URINE WITH REFLEXED MICRO Linda Chase Work Phone: Start: 11-16-2018 Drug screen class list a Grant Asencio Work Phone: Start: 11-16-2018 Urnls dip stick/tabl et rgnt auto w/o microscopy Grant Asencio Work Phone: Start: 11-16-2018 Anion gap [Moles/Vol] K risty Fay Pena Work Phone: Start: 11-16-2018 Assay of acetaminophen Kia Pena Work Phone: Start: 11-16-2018 Assay of ethanol Kia Pena Work Phone: Start: 11-16-2018 Assay of osmolality blood Kia Pena Work Phone: Start: 11-16-2018 Assay of salicylate Kri stbenjamin Aponte [employer] Work Phone: Start: 11-16-2018 Assay of thyroid stimulating hormone tsh Kia Pena Work Phone: Start: 11-16-2018 Basic metabolic pane l calcium total Kia Pena Work Phone: Start: 11-16-2018 Blood count complete auto&auto difrntl wbc Kia Pena Work Phone: Start: 11-16-2018 GLOMERULAR FILTRATIO N RATE, ESTIMATED Kia Aponte [employer] Work Phone: Start: 11-16-2018 Gonadotropin chorion ic qualitative Kia Pena Work Phone: Start: 11-16-2018 Hepatic function panel Kia Pena Work Phone: Start: 10-17-2018 Anion gap [Moles/Vol] J robert Mcnamara Work Phone: Start: 10-17-2018 Assay of acetaminophen Dat Mcnamara Work Phone: Start: 10-17-2018 Assay of ethanol Himare benjamin Mcnamara Work Phone: Start: 10-17-2018 Assay of osmolality blood Dat Mcnamara Work Phone: Start: 10-17-2018 Assay of salicylate Fredy jarettbenjamin Mcnamara Work Phone: Start: 10-17-2018 Basic metabolic pane l calcium total Dat Mcnamara Work Phone: Start: 10-17-2018 Blood count complete auto&auto difrntl wbc Dat Mcnamara Work Phone: Start: 10-17-2018 GLOMERULAR FILTRATIO N RATE, ESTIMATED Dat Mcnamara Work Phone: Start: 10-17-2018 Gonadotropin chorion ic qualitative Dat Mcnamara Work Phone: Start: 10-17-2018 Hepatic function panel Dat Mcnamara Work Phone: Start: 10-17-2018 Drug screen class list a Dat Mcnamara Work Phone: Start: 10-01-2018 Drug screen class list a Dasha Lutton Work Phone: Start: 10-01-2018 Urine test visual color cmprsn meths Dasha Lutton Work Phone: Start: 10-01-2018 URINE WITH REFLEXED MICRO Dasha Lutton Work Phone: Start: 10-01-2018 Anion gap [Moles/Vol] D anielle Lutton Work Phone: Start: 10-01-2018 Assay of acetaminophen Dasha Lutton Work Phone: Start: 10-01-2018 Assay of osmolality blood Dasha Fischer Work Phone: Start: 10-01-2018 Assay of salicylate Alvarado ieivan Fischer Work Phone: Start: 10-01-2018 Basic metabolic pane l calcium total Dasha Fischer Work Phone: Start: 10-01-2018 Blood count complete auto&auto difrntl wbc Dasha Fischer Work Phone: Start: 10-01-2018 GLOMERULAR FILTRATIO N RATE, ESTIMATED Dasha Fischer Work Phone: Start: 10-01-2018 Hepatic function panel Dasha Fischer Work Phone: Start: 09-18-2018 Ecg routine ecg w/le ast 12 lds w/i&r Nikiprerna Godfrey Work Phone: Start: 09-08-2018 Anion gap [Moles/Vol] M la Caldwell Work Phone: Start: 09-08-2018 Assay of acetaminophen Dante Caldwell Work Phone: Start: 09-08-2018 Assay of ethanol Salinaame d Javi Work Phone: Start: 09-08-2018 Assay of osmolality blood Dante Caldwell Work Phone: Start: 09-08-2018 Assay of salicylate Moh gurvinder Javi Work Phone: Start: 09-08-2018 Assay of thyroid stimulating hormone tsh Salinaamed Eldirani Work Phone: Start: 09-08-2018 Basic metabolic pane l calcium total Dante Olivasranandry Work Phone: Start: 09-08-2018 Blood count complete auto&auto difrntl wbc Dante Olivasranandry Work Phone: Start: 09-08-2018 GLOMERULAR FILTRATIO N RATE, ESTIMATED Dante Olivasranandry Work Phone: Start: 09-08-2018 Gonadotropin chorion ic qualitative Mohamed Eldirani Work Phone: Start: 09-08-2018 Drug screen class list a Dante Caldwell Work Phone: Start: 09-08-2018 URINE WITH REFLEXED MICRO Dante Caldwell Work Phone: Start: 09-06-2018 Anion gap [Moles/Vol] J maggy Diggs Work Phone: Start: 09-06-2018 Assay of acetaminophen Betsy Diggs Work Phone: Start: 09-06-2018 Assay of ethanol Toyinf samir Diggs Work Phone: Start: 09-06-2018 Assay of osmolality blood Betsy Diggs Work Phone: Start: 09-06-2018 Assay of salicylate Yuni Diggs Work Phone: Start: 09-06-2018 Assay of thyroid stimulating hormone tsh Betsy Diggs Work Phone: Start: 09-06-2018 Blood count complete auto&auto difrntl wbc Betsy Diggs Work Phone: Start: 09-06-2018 Comprehensive metabo lic panel Betsy Diggs Work Phone: Start: 09-06-2018 GLOMERULAR FILTRATIO N RATE, ESTIMATED Betsy Diggs Work Phone: Start: 09-06-2018 Gonadotropin chorion ic qualitative Betsy Diggs Work Phone: Start: 09-06-2018 PULSE OXIMETRY SPOT CHECK Betsy Diggs Work Phone: Start: 09-06-2018 Drug screen class list a Betsy Diggs Work Phone: Start: 08-10-2018 Bile acids total Grant Joni Asencio Work Phone: Start: 08-10-2018 Drug screen class list a Grant Asencio Work Phone: Start: 08-10-2018 URINE WITH REFLEXED MICRO Grant Asencio Work Phone: Start: 08-10-2018 Anion gap [Moles/Vol] J ohn Joni Asencio Work Phone: Start: 08-10-2018 Assay of acetaminophen Grant Asencio Work Phone: Start: 08-10-2018 Assay of ethanol Grant Asencio Work Phone: Start: 08-10-2018 Assay of lipase Grant Asencio Work Phone: Start: 08-10-2018 Assay of magnesium Grant Asencio Work Phone: Start: 08-10-2018 Assay of osmolality blood Grant Asencio Work Phone: Start: 08-10-2018 Assay of salicylate David gricelda Asencio Work Phone: Start: 08-10-2018 Assay of thyroid stimulating hormone tsh Grant Asencio Work Phone: Start: 08-10-2018 Assay of troponin quantitative Grant Asencio Work Phone: Start: 08-10-2018 Basic metabolic pane l calcium total Grant Asencio Work Phone: Start: 08-10-2018 Blood count complete auto&auto difrntl wbc Grant Asencio Work Phone: Start: 08-10-2018 GLOMERULAR FILTRATIO N RATE, ESTIMATED Grant Asencio Work Phone: Start: 08-10-2018 Gonadotropin chorion ic qualitative Grant Asencio Work Phone: Start: 08-10-2018 Hepatic function panel Grant Asencio Work Phone: Start: 08-07-2018 Drug screen class list a Carlos Razaq Work Phone: Start: 08-07-2018 URINE WITH REFLEXED MICRO Carlos Razaq Work Phone: Start: 08-07-2018 Anion gap [Moles/Vol] S aqib Razaq Work Phone: Start: 08-07-2018 Assay of acetaminophen Carlos Razaq Work Phone: Start: 08-07-2018 Assay of ethanol Carlos Razaq Work Phone: Start: 08-07-2018 Assay of osmolality blood Carlos Razaq Work Phone: Start: 08-07-2018 Assay of salicylate Saq ib Razaq Work Phone: Start: 08-07-2018 Assay of thyroid stimulating hormone tsh Carlos Razaq Work Phone: Start: 08-07-2018 Basic metabolic pane l calcium total Carlos Razaq Work Phone: Start: 08-07-2018 Blood count complete auto&auto difrntl wbc Carlos Razaq Work Phone: Start: 08-07-2018 GLOMERULAR FILTRATIO N RATE, ESTIMATED Carlos Razaq Work Phone: Start: 08-07-2018 Gonadotropin chorion ic qualitative Carlos Razaq Work Phone: Start: 08-07-2018 Hepatic function panel Carlos Razaq Work Phone: Start: 08-06-2018 Drug screen class list a Andreas A Shoutfiti Work Phone: Start: 08-06-2018 Assay of acetaminophen Andreas A [employer] Work Phone: Start: 08-06-2018 Assay of ethanol Andreas A Kirondo Work Phone: Start: 08-06-2018 Assay of salicylate Gar y A Kirondo Work Phone: Start: 08-06-2018 Gonadotropin chorion ic qualitative Andreas A Poturalski Work Phone: Start: 07-31-2018 Ecg routine ecg w/le ast 12 lds w/i&r Marielos Moraes Work Phone: Start: 07-31-2018 Anion gap [Moles/Vol] A bigail J Nartker Work Phone: Start: 07-31-2018 Antibody hiv-1&hiv-2 single result Marielos Moraes Work Phone: Start: 07-31-2018 Assay of thyroid stimulating hormone tsh Niki Godfrey Work Phone: Start: 07-31-2018 Blood count complete auto&auto difrntl wbc Niki Godfrey Work Phone: Start: 07-31-2018 Comprehensive metabo lic panel Niki Fay Bekah Work Phone: Start: 07-31-2018 GLOMERULAR FILTRATIO N RATE, ESTIMATED Niki Godfrey Work Phone: Start: 07-31-2018 Lipid panel Marielos rojas Work Phone: Start: 07-30-2018 Ecg routine ecg w/le ast 12 lds w/i&r Niki Fay Bekah Work Phone: Dental Ishmael Fernandez Ingrowing toenail (disorder) Ishmael Fernandez Plan of Treatment Date Care Activity Detail Author Start: 06-13-2027 Lipid panel Lipids [facility] Start: 12-01-2026 DTaP/Tdap/Td vaccine (2 - Td or Tdap) DTaP/Tdap/Td vaccine (2 - Td or Tdap) [facility] Start: 12-01-2026 DTaP/Tdap/Td vaccine (2 - Td) DTaP/Tdap/Td vaccine (2 - Td) [place], [place] Start: 12-01-2026 Tetanus vaccination TETANUS EVERY 10 YR [facility] Start: 07-14-2026 Lipid panel Lipids [facility] Start: 07-25-2025 Lipid panel Lipid screen [facility] Work Phone: Start: 08-01-2023 Lipid panel Lipid screen [facility] Work Phone: Start: 08-01-2023 Lipid screen Lipid screen [facility] Work Phone: Start: 06-13-2023 Hemoglobin A1c measurement A1C test (Diabetic or Prediabetic) [facility] Start: 06-12-2023 End: 06-12-2023 Patient encounter procedure 06/12/2023 Office Visit Family Medicine Coy Day DO [address] [place] [address] [facility] Start: 06-11-2023 Depression Monitoring Depression Mon itoring [facility] Start: 11-16-2022 HPV vaccine (2 - 3-d ose SCDM series) HPV vaccine (2 - 3-dose SCDM series) [facility] Start: 10-27-2022 [facility] Start: 10-25-2022 Referral to [employer] [facility] Start: 10-25-2022 Hospital admission [facility] Start: 10-23-2022 End: 10-23-2022 Patient encounter procedure 10/23/2022 Office Visit [facility] Medicine Da Pierce DO [address] [place] [address] [facility] Start: 10-01-2022 Influenza vaccination Flu vaccine (# 1) [facility] Start: 08-19-2022 End: 08-19-2022 Patient encounter procedure 08/19/2022 Office Visit [facility] Da Pierce DO [address] [place] [address] [facility] Start: 07-10-2022 End: 07-10-2022 Patient encounter procedure 07/10/2022 Office Visit Family Medicine Coy Day DO [address] [place] [address] [facility] Start: 11-01-2021 Influenza vaccination [facility] Start: 10-10-2021 [facility] Work Phone: Start: 10-08-2021 Hospital admission [facility] Work Phone: Start: 10-08-2021 End: 10-10-2021 Evaluation and management of inpatient Major depressive disorder, recurrent [facility] Start: 10-01-2021 Influenza vaccination Flu vaccine (# 1) [facility] Start: 09-24-2021 [facility] Work Phone: Start: 09-21-2021 Hospital admission [facility] Work Phone: Start: 08-17-2021 [facility] Work Phone: Start: 08-15-2021 Hospital admission [facility] Work Phone: Start: 07-25-2021 Hemoglobin A1c measurement A1C test (Diabetic or Prediabetic) [facility] Start: 11-15-2020 COVID-19 Vaccine (3 - Booster for Pfizer series) COVID-19 Vaccine (3 - Booster for Pfizer series) [facility] Start: 11-01-2020 Influenza vaccination Flu vacc ine (Season Ended) [employer] Work Phone: Start: 06-12-2020 COVID-19 Vaccine (2 - Pfizer 2-dose series) COVID-19 Vaccine (2 - Pfizer 2-dose series) [employer] Phone: Start: 11-02-2019 Influenza vaccination Flu vaccine (# 1) [employer] Work Phone: Start: 11-01-2018 [facility] [place] [place] Start: 11-01-2018 Influenza vaccinatio n given SEQUENTIAL INFLUENZA VACCINE (#1) [facility] Start: 10-27-2018 End: 10-27-2018 Appointment 10/27/2018 [facility]oint[facility] Start: 10-13-2018 End: 10-13-2018 Appointment 10/13/2018 [facility]oint[facility] Start: 2009 Screening for malign ant neoplasm of cervix [facility] Start: 01-13-2000 Cervical cancer screen Cervical canc er screen [place] Start: 01-13-2000 Screening for malign ant neoplasm of cervix [facility] Start: 1997 Hepatitis C screening Hepatitis C mo ancelmo [facility] [employer] Start: 1991 Depression Monitoring Depression Reagan [facility]ell [facility] Start: 1982 History and physical examination, annual for health maintenance Wellness Visit [facility] Start: 1979 Hepatitis C screening [facility] Work Phone: Start: 1979 Screening for malign ant neoplasm of cervix PAP SMEAR [facility] End: 08-19-2022 Carbamazepine Level, Total [facility] Work Phone: Comment on above: One Time for 1 Occur rences starting 08/19/2022 until 08/19/2022 EKG 12 Lead EKG 12 Lead ECG STAT 07/11/2022 9:14 AM EDT [employer] [facility] Work Phone: EKG 12 Lead EKG 12 Lead ECG STAT 08/05/2022 10:28 AM EDT [employer] [facility] Work Phone: EKG 12 Lead EKG 12 Lead ECG STAT 08/19/2022 11:24 AM EDT [facility] Patient Education [facility] Work Phone: Patient referral [facility] Work Phone: Rapid drug screen, urine Rapid d rug screen, urine Lab Routine 12/03/2018 10:32 AM EDT [place], [place] Immunizations Immunization Date Immunization Notes Care Provider [facility] 10-10-2021 influenza virus vacc ine, unspecified formulation Chito Staples MD Work Phone: [facility] [employer] 10-10-2021 influenza, injectabl e, quadrivalent, preservative free Coy Day DO Work Phone: [employer] Work Phone: 01-26-2021 COVID-19, PFIZER PUR PLE top, DILUTE for use, (age 12 y+), 30mcg/0.3mL Coy Day DO Work Phone: [facility] Work Phone: 11-02-2020 influenza virus vacc ine, unspecified formulation Chito Staples MD Work Phone: [facility] Work Phone: 11-02-2020 influenza, injectabl e, quadrivalent, preservative free Coy Day DO Work Phone: [facility] Work Phone: 07-02-2020 hepatitis A vaccine, adult dosage Coy Day DO Work Phone: [facility] Work Phone: 07-02-2020 pneumococcal polysaccharide vaccine, 23 valent Coy Olenctae DO Work Phone: [facility] Work Phone: 06-15-2020 COVID-19, PFIZER PUR PLE top, DILUTE for use, (age 12 y+), 30mcg/0.3mL Coy Day DO Work Phone: [facility] Work Phone: 05-22-2020 COVID-19, PFIZER PUR PLE top, DILUTE for use, (age 12 y+), 30mcg/0.3mL Coy Day DO Work Phone: [facility] Work Phone: 10-14-2018 influenza, injectabl e, quadrivalent, preservative free Quintin Corona MD Work Phone: [facility] Work Phone: 09-18-2018 hepatitis A vaccine, adult dosage Marielos Moraes [facility] Work Phone: 12-01-2016 Influenza Vaccine, unspecified formulation Marielos Moraes [facility] 12-01-2016 influenza, injectabl e, quadrivalent, preservative free Coy Day DO Work Phone: [facility] Work Phone: 12-01-2016 tetanus toxoid, redu mile diphtheria toxoid, and acellular pertussis vaccine, adsorbed [facility] [place] [place] Payers Date Payer Category Payer Self-pay [id number] 04-25-2022 Private Health Insurance 08-31-2018 Private Health Insurance xxx [id number] 05-19-2017 [facility] [id number] 1979 Unknown [id number] 2.16.840.1.497080.3.579.2.903 1979 Unknown [id number] 2.16.840.1.511819.3.579.2.903 1979 Unknown [id number] 2.16.840.1.140563.3.579.2.175 1979 Unknown [id number] 2.16.840.1.098641.3.579.2.593 1979 Unknown [id number] 2.16.840.1.340768.3.579.2.593 1979 Unknown [id number] 2.16.840.1.891706.3.579.2.593 1979 Unknown [id number] 2.16.840.1.135435.3.579.2.593 1979 Unknown [id number] 2.16.840.1.371197.3.579.2.593 1979 Unknown [id number] 2.16.840.1.056626.3.579.2.593 1979 Unknown [id number] 2.16.840.1.226054.3.579.2.593 1979 Unknown [id number] 2.16.840.1.802373.3.579.2.593 1979 Unknown [id number] 2.16.840.1.173144.3.579.2.593 1979 Unknown [id number] 2.16.840.1.556462.3.579.2.593 1979 Unknown [id number] 2.16.840.1.908916.3.579.2.593 1979 Unknown [id number] 2.16.840.1.421671.3.579.2.593 1979 Unknown [id number] 2.16.840.1.181362.3.579.2.593 1979 Unknown [id number] 2.840.1.472320.3.579.2.593 1979 Unknown [id number] 2.16.840.1.901967.3.579.2.593 1979 Unknown [id number] 2.16.840.1.349982.3.579.2.593 1979 Unknown [id number] 2.16.840.1.296426.3.579.2.593 1979 Unknown [id number] 2.16840.1.308496.3.579.2.593 1979 Unknown [id number] 2.16.840.1.273470.3.579.2.593 1979 Unknown [id number] 2.16.840.1.321545.3.579.2.593 1979 Unknown [id number] 2.16.840.1.070894.3.579.2.93 1979 Unknown [id number] 2.16.840.1.547950.3.579.2.93 1979 Unknown [id number] 2.16.840.1.660295.3.579.2.93 1979 Unknown [id number] 2.16.840.1.469987.3.579.2.93 1979 Unknown [id number] 2.16.840.1.689768.3.579.2.93 1979 Unknown [id number] 2.16.840.1.589310.3.579.2.93 1979 Unknown [id number] 2.16.840.1.551955.3.579.2.93 1979 Unknown [id number] 2.16.840.1.606260.3.579.2.93 1979 Unknown [id number] 2.16.840.1.011309.3.579.2.754 1979 Unknown [id number] 2.16.840.1.594290.3.579.2.754 1979 Unknown [id number] 2.16.840.1.870428.3.579.2.174 1979 Unknown [id number] 2.16.840.1.142715.3.579.2.174 1979 Unknown [id number] 2.16.840.1.265170.3.579.2.174 1979 Unknown [id number] 2.16.840.1.855977.3.579.2.174 1979 Unknown [id number] 2.16.840.1.016442.3.579.2.174 1979 Unknown [id number] 2.16.840.1.195028.3.579.2.727 1979 Unknown [id number] 2.16.840.1.833179.3.579.2.727 1979 Unknown [id number] 2.16.840.1.173217.3.579.2.727 1979 Unknown [id number] 2.16.840.1.637749.3.579.2 1979 Unknown [id number] 2.16.840.1.219833.3.579.2 1979 Unknown [id number] 2.16.840.1.492851.3.579.2 1979 Unknown [id number] 2.16.840.1.728907.3.579.2 1979 Unknown [id number] 2.16.840.1.886707.3.579.2 1979 Unknown [id number] 2.16.840.1.220550.3.579. 1979 Unknown [id number] 2.16.840.1.397176.3.579. 1979 Unknown [id number] 2.16840.1.685673.3.579. 1979 Unknown [id number] 2.16.840.1.115570.3.579. 1979 Unknown [id number] 2.16.840.1.172074.3.579.2 1979 Unknown [id number] 2.16.840.1.961999.3.579.2 1979 Unknown [id number] 2.16840.1.307360.3.579.2 1979 Unknown [id number] 2.16.840.1.782813.3.579.2 1979 Unknown [id number] 2.16.840.1.483199.3.579.2 1979 Unknown [id number] 2.16.840.1.093796.3.579.2 1979 Unknown [id number] 2.16.840.1.509369.3.579.2 1979 Unknown [id number] 2.16.840.1.169756.3.579.2.727 1979 Unknown [id number] 2.16.840.1.508806.3.579.2.727 1979 Unknown [id number] 2.16.840.1.532002.3.579.2.727 1979 Unknown [id number] 2.16.840.1.697302.3.579.2.727 1979 Unknown [id number] 2.16.840.1.451021.3.579.2.173 1979 Unknown [id number] 2.16.840.1.771494.3.579.2.173 1979 Unknown [id number] 2.16.840.1.264528.3.579.2.173 1979 Unknown [id number] 2.16.840.1.364376.3.579.2.173 1979 Unknown [id number] 2.16.840.1.868210.3.579.2.173 1979 Unknown [id number] 2.16.840.1.764050.3.579.2.173 1979 Unknown [id number] 2.16.840.1.016921.3.579.2.173 1979 Unknown [id number] 2.16.840.1.080201.3.579.2.173 1979 Unknown [id number] 2.16.840.1.808779.3.579.2.173 1979 Unknown [id number] 2.16.840.1.481571.3.579.2.173 1979 Unknown [id number] 2.16.840.1.710451.3.579.2.173 1979 Unknown [id number] 2.16.840.1.327638.3.579.2.173 1979 Unknown [id number] 2.16.840.1.385478.3.579.2.173 1979 Unknown [id number] 2.16.840.1.725412.3.579.2.173 1979 Unknown [id number] 2.16.840.1.372997.3.579.2.173 1979 Unknown [id number] 2.16.840.1.066857.3.579.2.173 1979 Unknown [id number] 2.16.840.1.064163.3.579.2.173 1979 Unknown [id number] 2.16.840.1.415061.3.579.2.173 1979 Unknown [id number] 2.16.840.1.932668.3.579.2.173 1979 Unknown [id number] 2.16.840.1.242738.3.579.2.173 1979 Unknown [id number] 2.16.840.1.855930.3.579.2.173 1979 Unknown [id number] 2.16.840.1.684412.3.579.2.173 1979 Unknown [id number] 2.16.840.1.128835.3.579.2.173 1979 Unknown [id number] 2.16.840.1.229489.3.579.2.173 1979 Unknown [id number] 2.16.840.1.696624.3.579.2.173 1979 Unknown [id number] 2.16.840.1.049449.3.579.2.173 1979 Unknown [id number] 2.16.840.1.878598.3.579.2.173 1979 Unknown [id number] 2.16.840.1.838806.3.579.2.196 1979 Unknown [id number] 2.16.840.1.007154.3.579.2.196 1979 Unknown [id number] 2.16.840.1.801914.3.579.2.196 1979 Unknown [id number] 2.16.840.1.924416.3.579.2.196 1979 Unknown [id number] 2.16.840.1.462808.3.579.2.196 1979 Unknown [id number] 2.16.840.1.412812.3.579.2.196 1979 Unknown [id number] 2.16.840.1.810082.3.579.2.196 1979 Unknown [id number] 2.16.840.1.632908.3.579.2.196 1979 Unknown [id number] 2.16.840.1.284364.3.579.2.196 1979 Unknown [id number] 2.16.840.1.617129.3.579.2.196 1979 Unknown [id number] 2.16.840.1.452643.3.579.2.196 1979 Unknown [id number] 2.16.840.1.275884.3.579.2.196 1979 Unknown [id number] 2.16.840.1.070128.3.579.2.196 1979 Unknown [id number] 2.16.840.1.191067.3.579.2.196 1979 Unknown [id number] 2.16.840.1.337865.3.579.2.196 1979 Unknown [id number] 2.16.840.1.224408.3.579.2.196 1979 Unknown [id number] 2.16.840.1.437471.3.579.2.196 1979 Unknown [id number] 2.16.840.1.177489.3.579.2.196 1979 Unknown [id number] 2.16.840.1.832970.3.579.2.196 1979 Unknown [id number] 2.16.840.1.347699.3.579.2.196 1979 Unknown [id number] 2.16.840.1.494298.3.579.2.196 1979 Unknown [id number] 2.16.840.1.483081.3.579.2.196 1979 Unknown [id number] 2.16.840.1.167743.3.579.2.196 1979 Unknown [id number] 2.16.840.1.824048.3.579.2.196 1979 Unknown [id number] 2.16.840.1.991513.3.579.2.196 1979 Unknown [id number] 2.16.840.1.787272.3.579.2.196 1979 Unknown [id number] 2.16.840.1.827476.3.579.2.196 1979 Unknown [id number] 2.16.840.1.023524.3.579.2.196 03-03-1960 Medicaid [id number] 03-03-1960 Private Health Insurance [id number] 03-03-1960 Private Health Insurance [id number] Unknown Regular Insurance [id number] Unknown [id number] 2.16.840.1.169019.3.579.2.531 Unknown [id number] 2.16.840.1.083127.3.579.2.531 Unknown [id number] 2.16.840.1.706284.3.579.2.531 Unknown [id number] 2.16.840.1.137832.3.579.2.531 Unknown [id number] 2.16.840.1.628265.3.579.2.531 Unknown [id number] 2.16.840.1.095848.3.579.2.531 Unknown [id number] 2.16.840.1.642312.3.579.2.531 Social History Date Type Detail Facility Start: 10-02-2018 End: 09-09-2022 Tobacco smoking status NHIS Never smoker [facility] [facility] Start: 10-02-2018 End: 06-10-2022 Alcohol intake No [facility] Start: 1980 Sex Assigned At Not on file M [facility] Start: 10-20-2018 End: 11-11-2022 Alcohol intake Lifetime non-drinker (finding) [facility] Start: 10-20-2018 End: 06-10-2022 History SDOH Alcohol Frequency 1 [facility] Start: 05-23-2020 End: 09-09-2022 Tobacco use and exposure Never used [employer] [facility] Phone: Start: 05-23-2020 End: 08-06-2021 Alcohol intake Current non-drinker of alcohol (finding) [employer] [facility] Phone: Start: 03-23-2019 End: 06-10-2022 History SDOH Financial 5 [employer] Phone: Start: 07-21-2021 End: 06-12-2022 Exposure to SARS-CoV-2 (event) Not sure [employer] Tobacco smoking status Never [facility] Start: 1980 Sex Assigned At Female F [facility] Start: 11-18-2021 End: 11-02-2022 History SDOH Alcohol Std Drinks 0 [facility] [employer] Phone: Start: 11-08-2021 End: 11-18-2021 Exposure to SARS-CoV-2 (event) Yes [facility] [employer] Start: 06-10-2022 History SDOH Transpo rt Non-Med 2 [facility] [employer] Work Phone: Tobacco [facility] Comment on above: denies Tobacco smoking status No Smokin g Status Entered [facility] Start: 06-10-2022 End: 11-11-2022 History of Social function [facility] Work Phone: How often to you hav e a drink containing alcohol? Never [facility] Work Phone: (I/We) worried gurmeet er (my/our) food would run out before (I/we) got money to buy more. Never true [facility] Work Phone: At any time in the past 12 months, were you homeless or living in residential [including now]? No [facility] Work Phone: NEGATED: Highlighted rowStart: FLAVIO History of tobacco use [facility] Goals Date Patient Goal Desired Activity /State Functional Status Date Assessment Result Facility 02-03-2023 Functional Status N/A [facility] 01-10-2023 Functional Status N/A [facility] 11-14-2022 Functional Status N/A [facility] 10-27-2022 Functional status Patient at Baseline [facility] Work Phone: 10-14-2022 Functional Status N/A [facility] 09-16-2022 Functional Status N/A [facility] 08-28-2022 Functional Status N/A [facility] 08-14-2022 Functional Status N/A [facility] 07-14-2022 Functional Status N/A [facility] 07-07-2022 Functional Status N/A [facility] 05-30-2022 Functional Status N/A [facility] 05-07-2022 Functional Status N/A [facility] 03-29-2022 Functional Status N/A [facility] 03-14-2022 Functional Status N/A [facility] 01-29-2022 Functional Status N/A [facility] 01-15-2022 Functional Status N/A [facility] 12-04-2021 Functional Status N/A [facility] 11-30-2021 Functional Status N/A [facility] 11-20-2021 Functional Status N/A [facility] 11-14-2021 N/A [facility] 11-08-2021 Functional Status N/A [facility] 10-10-2021 Functional status Patient at Baseline [facility] Work Phone: 10-07-2021 Functional Status N/A [facility] 10-07-2021 Functional Status N/A [facility] 10-06-2021 Functional Status N/A [facility] 10-04-2021 Functional Status N/A [facility] 10-02-2021 Functional Status N/A [facility] 09-30-2021 Functional Status N/A [facility] 09-24-2021 Functional status Patient at Baseline [facility] Work Phone: 08-22-2021 Functional Status N/A [facility] 08-17-2021 Functional status Patient at Baseline [facility] Work Phone: Mental Status Date Assessment Result Facility 10-27-2022 Cognitive function Cognitive Sta tus Patient at Baseline [facility] Work Phone: 10-10-2021 Cognitive function Cognitive Sta tus Patient at Baseline [facility] Work Phone: 09-24-2021 Cognitive function Cognitive Sta tus Patient at Baseline [facility] Work Phone: 08-17-2021 Cognitive function Cognitive Sta tus Patient at Baseline [facility] Work Phone: Clinical Notes 03-04-2019 to 03-04-2023 Note Date & Type Note Facility 03-04-2023 Note Patient Education Ma terials Name: Rosangela Lindo Current Date: 03/04/2023 19:19:44 [place] : 1980 [facility]: [id number] The following sheet(s) are the Patient Education Leaflets for Rosangela Lindo Otolaryngology Assessment/Plan 1. Viral sinusitis covid: negative 1) Patient started to drink at least 8 glasses of non-caffeinated nonalcoholic beverages per day. Rest and sleep. 2) Take Tylenol and Ibuprofen over the counter as needed for body aches, fever, pain. Take Tylenol (max 4000 mg a day; take up to 1000 mg every 6 hours as needed) and Ibuprofen (max 2400 mg a day; take up to 800 mg every 8 hours or 600 mg every 4 hours as needed) over the counter as needed for body aches, fever, pain. Take lowest dose possible to achieve relief. 3) For nasal congestion: Recommended patient use Flonase 2 sprays each nostril every a.m. May also use in the evening if needing a second dose. Pseudophedrine (nasal decongestant pills) but do not take with elevated blood pressure. Hot shower/steam sauna in the bathroom before bed Humidifier at night 4)For runny nose or sore throat secondary to post nasal drainage: Recommended patient start Zyrtec or Claritin 24-hour- take 1 tablet daily in a.m. (NonDrowsy) Can try Benadryl in PM (drowsy) 5) For cough: Mucinex DM for congested cough Delsym for Dry Cough Honey 6) Sore throat: Gargle with warm salt water Claritin/Zyrtec in AM for nondrowsy antihistamine (dries you up) Benadryl in PM for drowsy antihistamine Flonase nasal spray for postnasal drainage and sore throat Sore throat drops, cepacol, chloraseptic spray Warm tea with honey 7) If not better and the next 4 or 5 days followup with PCP. 8)If developing chest pain, shortness of breath, wheezing, worst headache in life, vision changes, coughing blood, unable to keep down fluids, leg swelling or calf pain: Go to the emergency room. Ordered: amoxicillin-clavulanate, 1 tabs, Oral, q12hr, X 7 days, # 14 tabs, 0 Refill(s), 03/16/23 18:58:00 EST, Pharmacy: [facility]/pharmacy #[id number] fluticasone nasal, 1 sprays, Nasal, qAM, # 16 g, 0 Refill(s), Pharmacy: [facility]/pharmacy #[id number] methylPREDNISolone, 1 packets, Oral, As Indicated, as directed on package labeling, X 6 days, # 21 tabs, 0 Refill(s), 03/10/23 18:57:00 EST, [id number] pseudoephedrine-guaifenesin, 1 tabs, Oral, q12hr, X 7 days, # 14 tabs, 0 Refill(s), 03/11/23 18:58:00 EST, [id number] Self-Care for Sinusitis Drinking plenty of water can help sinuses drain. Sinusitis can often be managed with self-care. Self-care can keep sinuses moist and make you feel more comfortable. Remember to follow your doctor's instructions closely. This can make a big difference in getting your sinus problem under control. Drink fluids Drinking extra fluids helps thin your mucus. This lets it drain from your sinuses more easily. Have a glass of water every hour or two. A humidifier helps in much the same way. Fluids can also offset the drying effects of certain medicines. If you use a humidifier, follow the product maker's instructions on how to use it. Clean it on a regular schedule. Use saltwater rinses Rinses help keep your sinuses and nose moist. Mix a teaspoon of salt in 8 ounces of fresh, warm water. Use a bulb syringe to gently squirt the water into your nose a few times a day. You can also buy ready-made saline nasal sprays. Apply hot or cold packs Applying heat to the area surrounding your sinuses may make you feel more comfortable. Use a hot water bottle or a hand towel dipped in hot water. Some people also find ice packs effective for relieving pain. Medicines Your doctor may prescribe medicines to help treat your sinusitis. If you have an infection, antibiotics can help clear it up. If you are prescribed antibiotics, take all pills on schedule until they are gone, even if you feel better. Decongestants help relieve swelling. Use decongestant sprays for short periods only under the direction of your healthcare provider. If you have allergies, your doctor may prescribe medicines to help relieve them. ? [id number] [employer]. [address] [facility], [place] [address]. All rights reserved. This information is not intended as a substitute for professional medical care. Always follow your healthcare professional's instructions. [facility] 02-21-2023 Evaluation note Encounter Date Diagnosis Assessment Notes Jan, Acute sinusitis, recurrence not specified, unspecified location (ICD-10 - J01.90) Drink plenty fluids, get plenty of rest. Take the amoxicillin with clavulanate as prescribed until gone. Run a cool-mist humidifier at your bedside. Take Mucinex and/or Sudafed for congestion. Off work until Friday. Follow-up with your family physician if no improvement in 2 to 3 days [employer] Other 12-04-2023 Hospital Discharge instructions Patient Education 02/03/2023 09:25:44 Near-Syncope Near-Syncope Near-syncope is when you suddenly feel like you might pass out or faint, but you do not actually lose consciousness. This may also be referred to as presyncope. During an episode of near-syncope, youmay: Feel dizzy, weak, light-headed, or like the room is spinning. Feel nauseous. See spots or see all white or all black in your field of vision. Have cold, clammy skin or feel warm and sweaty. Hear ringing in your ears (tinnitus). This condition is caused by a sudden decrease in blood flow to the brain. This decrease can result from various causes, but most of those causes are not dangerous. However, near-syncope may be a signof a serious medical problem, so it is important to seek medical care. Follow these instructions at home: Medicines Take ewkg-jiq-ghjbzqs and prescription medicines only as told by your health care provider. If you are taking blood pressure or heart medicine, get up slowly and take several minutes to sit and then stand. This can reduce dizziness and decrease the risk of near-syncope. Lifestyle Do not drive, use machinery, or play sports until your health care provider says it is okay. Do not drink alcohol. Do not use any products that contain nicotine or tobacco. These products include cigarettes, chewing tobacco, and vaping devices, such as e-cigarettes. If you need help quitting, ask your health careprovider. Avoid hot tubs and saunas. General instructions Pay attention to any changes in your symptoms. Talk with your health care provider about your symptoms. You may need to have testing to understandthe cause of your near-syncope. If you start to feel like you might faint, sit or lie down right away. If sitting, put your head down between your legs. If lying down, raise (elevate) your feet above the level of your heart. ?Breathe deeply and steadily. Wait until all of the symptoms have passed. ?Have someone stay with you until you feel stable. Drink enough fluid to keep your urine pale yellow. Avoid prolonged standing. If you must stand for a long time, do movements such as: ?Moving your legs. ?Crossing your legs. ?Flexing and stretching your leg muscles. ?Squatting. Keep all follow-up visits. This is important. Contact a health care provider if: You continue to have episodes of near fainting. Get help right away if: You faint. You have any of these symptoms that may indicate trouble with your heart: ?Fast or irregular heartbeats (palpitations). ?Unusual pain in your chest, abdomen, or back. ?Shortness of breath. You have a seizure. You have a severe headache. You are confused. You have vision problems. You have severe weakness or trouble walking. You are bleeding from your mouth or rectum, or have black or tarry stool. These symptoms may represent a serious problem that is an emergency. Do not wait to see if your symptoms will go away. Get medical help right away. Call your local emergency services (911 in the [place] Do not drive yourself to the hospital. Summary Near-syncope is when you suddenly feel like you might pass out or faint, but you do not actually lose consciousness. This condition is caused by a sudden decrease in blood flow to the brain. This decrease can result from various causes, but most of those causes are not dangerous. Near-syncope may be a sign of a serious medical problem, so it is important to seek medical care. If you start to feel like you might faint, sit or lie down right away. If sitting, put your head down between your legs. If lying down, raise (elevate) your feet above the level of your heart. Talk with your health care provider about your symptoms. You may need to have testing to understandthe cause of your near-syncope. This information is not intended to replace advice given to you by your health care provider. Make sure you discuss any questions you have with your health care provider. Document Revised: 06/28/2021 Document Reviewed: 06/28/2021 [employer] Patient Education 2022 [employer]. Follow Up Care 02/03/2023 07:05:43 With:[facility] Address: [address] [place] [address] [phone] Business (1) When:02/06/2023 09:01:14 [facility]11-10-2023 Hospital Discharge instructions Follow Up Care 01/10/2023 12:41:31 With:[facility] Address: [address] [place] [address] [phone] Business (1) When:01/13/2023 13:27:36 Comments:Follow-up with your primary care provider in 3 to 5 days. If symptoms worsen, do not improve, or new symptoms arise please report back to emergency department for further evaluation. [facility]11-10-2023 Evaluation + Plan noteExtracted from: Title:ED Note Author:Bret Baker PA-C te:01/10/23 Vaccine reaction (T50.Z95A: Adverse effect of other vaccines and biological substances, initial encounter) [facility]10-22-2023 NotePROCEDURE: XR Chest 2 Views DATE: 12/22/2022 12:17 PM CDT COMPARISONS: 09/29/2022 CLINICAL INDICATION: 42 years Female Cough, FINDINGS: The cardiomediastinal silhouette and pulmonary vasculature are within normal limits. There is some platelike density of the right lung base probably representing atelectasis. The lungsare otherwise clear. There is no evidence of pleural effusion or pneumothorax. IMPRESSION: Findings most consistent with a small amount of atelectasis or fibrosis of the right lung base. The exam is otherwise within normal limits. Final Dictated by: Kartik MARAVILLA, Pato Paulino Dictated DT/TM: 12/22/2022 1:28 pm Signed by: Pato Verdugo MD Signed (Electronic Signature): 12/22/2022 1:31 pm (If Report Is Signed, Electronically Signed in Other Vendor System)[facility]10-22-2023 Notept to ed for evaluation of continuation of cough for 1.5 weeks. pt verbalized cough worse when sleeping and laying flat. pt has not taken any medication for the cough at this time. pt speaking in full sentences with no sx of distress. Electronically signed by Jefferson Chavez 12/22/22 12:47 [facility] Evaluation + Plan noteExtracted from: Title:ED Note Author:Matt Pena M.D. te:11/14/22 1. Depression (F32.A: Depres lory, unspecified) 2. Eloped from emergency department (Z53.21: Procedure and treatment not carried out due to patient leaving prior to being seen by health care provider) Orders: Consult to Mental Health Drug Screen Urine ECG 12 Lead Adult U Beta Hcg Qual [facility]09-13-2023 NotePatient Education Materials Name: Rosangela Lindo Current Date: 11/13/2022 13:27:17 Cristy/[facility] : 1980 The following sheet(s) are the Patient Education Leaflets for [facility] Rosangela Bellon Infectious Disease Coronavirus Disease 2019 (COVID-19): Prevention The best prevention is to have no contact with the SARS-CoV-2 virus. There is no vaccine yet. Canceling travel and other outings Stay informed about COVID-19 in your area. Follow local instructions about being in public. Be aware of events in your community that may be postponed or canceled, such as school and sporting events.You may be advised not to attend public gatherings. You will be advised to stay at least 6 feet from others as much as possible. This is called socialdistancing. You may be advised to stay at home and isolate yourself as much as possible if COVID-19 is in your area. You may hear terms such as self isolate, quarantine, ?stay at home,? ?residential in place,? and ?lockdown.? The CDC advises that people should not travel to areas where there are COVID-19 outbreaks right nowfor any reason that is not urgent. For the most current CDC travel advisories, visit the CDC website at www.cdc.gov/coronavirus/2019- ncov/travelers. Don?t go on cruises or do non-essential travel right now. When you are at home ? Wash your hands often. Use soap and clean, running water for at least 20 seconds. ? If you don't have access to soap and water, use an alcohol-based hand solid waste technician often. Make sure it has at least 60% alcohol. ? Don't touch your eyes, nose, or mouth unless you have clean hands. ? Don?t kiss someone who is sick. ? If you need to cough or sneeze, do it into a tissue. Then throw the tissue into the trash. If youdon't have tissues, cough or sneeze into the bend of your elbow. ? When possible, don't touch high-touch shared surfaces such as doorknobs and handles, cabinet handles, and light switches. ? Clean frequently-touched home surfaces often with disinfectant. This includes desk surfaces, printers, phones, kitchen counters, tables, fridge door handle, bathroom surfaces, and any soiled surface. Closely follow disinfectant label instructions. Go to the CDC?s detailed cleaning website at www.c dc.gov/coronavirus/2019-ncov/prepare/cleaning-disinfection.html. ? Check your home supplies. Consider keeping a 2-week supply of medicines, food, and other needed household items. ? Make a plan for childcare, work, and ways to stay in touch with others. Know who will help you ifyou get sick. ? Don't be around people who are sick. ? There is no evidence right now that animals spread SARS-CoV-2. But it's always a good idea to wash your hands after touching any animals. Don't touch animals that may be sick. ? Don?t share eating or drinking utensils with sick people. If you leave home ? Stay at least 6 feet away from all people. ? When possible, don't touch high-touch public surfaces such as doorknobs and handles, cabinet handles, and light switches. If you touch these surfaces, try to clean them first with a disinfecting wipe. Or touch them using a tissue or paper towel. ? Use an alcohol-based hand solid waste technician often. Make sure it has at least 60% alcohol. ? Don't touch your eyes, nose, or mouth unless you have clean hands. ? If you need to cough or sneeze, do it into a tissue. Then throw the tissue into the trash. If youdon't have tissues, cough or sneeze into the bend of your elbow. ? Avoid public gatherings. ? The CDC advises wearing a cloth face mask in public. During a public health emergency, medical face masks may be reserved for healthcare workers. You may need to make a cloth face mask of your own.You can do this using a bandana, T- shirt, or other cloth. The CDC has instructions on how to make amask. If you are at a work site ? Stay at least 6 feet away from all people. ? Don't shake hands with anyone. ? Don?t have in-person meetings. Meet over phone or video. ? Wash your hands often. Use soap and clean, running water for at least 20 seconds. ? If you don't have access to soap and water, use an alcohol-based hand solid waste technician often. Make sure it has at least 60% alcohol. ? Don't touch your eyes, nose, or mouth unless you have clean hands. ? The CDC advises wearing a cloth face mask in public. During a public health emergency, medical face masks may be reserved for healthcare workers. You may need to make a cloth face mask of your own.You can do this using a bandana, T- shirt, or other cloth. The CDC has instructions on how to make amask. ? When possible, don't touch high-touch public surfaces such as doorknobs and handles, cabinet handles, and light switches. If you touch these surfaces, clean them first with a disinfecting wipe. Or touch them using a tissue or paper towel. ? Use office jose francisco one person at a time. ? Consider not having office coffee or tea, or group foods. ? Don?t have meals in groups. ? Clean work (more content not included)...[facility] 11-02-2022 Hospital Discharge instructions* Discharge Instructions* Marito Jason MD - 11/02/2022 12:40 AM EDT You were seen in the emergency department for bilateral symmetrical ankle swelling. Likely mild fluid overload. Hours goodwill. Please take the 5 days worth of Lasix pills at their intended doses andattempt times and follow-up with your primary care physician. Please return to the department for new or worsening symptoms he was discussed. [facility] Discharge instructions* Discharge Instructions* Ev Barahona DO - 10/29/2022 10:40 PM EDT Make sure to wear your brace at all times including when you are at work and when you are sleeping as well. Get a referral through your primary care doctor to see orthopedic or hand specialist for possible steroid injection into her wrist. Keep up with Tylenol and ibuprofen for pain as needed. * Attachments The following attachments cannot be sent through Care Everywhere. * Wrist Sprain (Luxembourger) documented in this encounterC[facility] Progress note Author Miguelangel Zhou [facility] October 26, 2022 10:26am Note Date/Time October 26, 2022 10 :26am [facility] [address] [place] [address] Psychiatry Progress Note Signed Patient: Rosangela Lindo MR#: [id number] : 1980 Acct:[id number] Age/Sex: 42 / F Adm Date: 3 Loc: 1S Room: [address] [place] [address] Type : ADM IN Attending Dr: Miguelangel Zhou MD Copies to: ~ Date of Service: 10/26/2022 Subjective Subjective Narrative: Ms. Lindo reported that she is doing okay. She reported that she is tolerating the medication and feels good. She denied any depression or suicidality at this time. She reported that her 's grandmother . I did speak with her who reported that the grandmother did pass away. He reported that he is in [place] at this point and will be back in town later this evening. We made plans for patient to be discharged tomorrow so he could be home. Mental Status Exam: Appearance: grossly normal Mental Status: mental status grossly normal Mood: Improving mood Affect: Improving affect Speech and Movement: speech and movement normal and speech clear Attitude: cooperative Thought Process: normal Thought Content: Denied hallucinations, no homicidality, improving suicidality Insight: fair Judgment: fair Exam Physical Exam Vital Signs: Temp Pulse Resp BP Pulse Ox O2 Del Method 98.2 F 94 H 16 112/79 97 Room Air 10/26/22 07:30 10/26/22 07:30 10/25/22 20:10 10/26/22 07:30 10/26/22 07:30 10/26/22 07:30 Objective Labs Labs: Abnormal Labs 10/26/22 05:15 LDL Cholesterol, Calc 138 H Assessment/Plan Assessment/Plan (1) Major depressive disorder, recurrent: Code(s): F33.9 - Major depressive disorder, recurrent, unspecified Status: Acute Plan Patient reported feeling better at this time and denied current suicidality We will restart Trileptal 150 mg in the morning and 300 at bedtime,, Abilify 10 mg daily and received Abilify Maintena on 10/25/2022, Zoloft 100 mg daily Continue Seroquel 25 mg at bedtime for sleep Continue to monitor mental status Encourage group participation and medication compliance Risk benefits alternatives explained Documented By: Miguelangel Zhou MD 10/26/221024 Signed By: <Electronically signed by Miguelangel Zhou MD> 10/26/221025 [facility] Work Phone: 1(810) 914-418908-25-2023 History and physical note Author Miguelangel Zhou [facility] October 25, 2022 12:21pm Note Date/Time October 25, 2022 12 :21pm [facility] [address] [place] [address] Psychiatry H&P Signed Patient: Rosangela Lindo MR#: [id number] : 1980 Acct:[id number] Age/Sex: 42 / F Adm Date: 3 Loc: 1S Room: [address] [place] [address] Type: ADM IN Attending Dr: Miguelangel Zhou MD Copies to: Miguelangel Zhou MD NO FAMILY PHYSICIAN~ Date of Service: 10/25/2022 HPI History of Present Illness History of present illness: Ms. Lindo is a 42 year old female who presented due to concern for depression with suicidal ideation with plans of overdosing. Upon assessment, patient reported that she has been feeling depressed. She stated that she had thoughts of wanting to overdose. She reported that she toldher . She stated that she has been struggling with her anxiety and depression. She reported that she sometimes forgets to take her nighttime medications. She stated that this may be contributing to how she is feeling. She reported some issues with anhedonia and feelings of hopelessness. She also continues to report suicidal thoughts. She stated that she does like her medications and feels like they are somewhat helpful. Past psych history: Reported depression and anxiety Past hospitalizations: Reported to prior hospitalizations Past suicide attempts: Reported overdose on medications in 2019 Family psych history: None reported Previous medications: Zoloft, Trileptal Alcohol and drug use: Denied any significant issues Living: Plans on living with firicco?'s family Employment: employed Review of symptoms: Constitutional: Denies chills and Denies fever(s) Eyes: Denies change in vision ENT: Denies abnormal hearing Cardiovascular: Denies chest pain Respiratory: Denies chest congestion and Denies cough Gastrointestinal: Denies change in bowel habits Genitourinary: Denies dysuria Musculoskeletal: Denies atrophy and Denies myalgias Integumentary/Breasts: Denies dry skin Neurologic: Denies abnormal gait and Denies abnormal movements Psychiatric: Reports depression and suicidal ideation Physical exam: Const: cooperative Nutritional Appearance: average body habitus Orientation: alert, awake and oriented x3 HEENT: Head normal to inspection, hearing grossly normal bilaterally, external nose normal, face symmetric Eyes: appearance normal, both eyes and all related structures, sclerae normal Neck: normal visual inspection and full ROM Resp: normal respiratory effort, able to speak in complete sentences and symmetric chest movement Cardio: regular rate GI: normal to inspection and non-distended : deferred Skin: no rashes or lesions noted Neuro: CNI: Normal olfaction CNI: normal olfaction CNII: Visual oneil intact, CNIII,IV,: EOM intact, no nystagmus. Pupils equal, round, reactive to light and accommodation, CNV: Sensation intact to light touch, CNVII: Raises eyebrows, smile/frown, puff out cheeks symmetrically, CNVIII: Hearing intact bilaterally, CNIX,X: Voice normal, soft palate elevation normal, symmetrical, CNXI: Shoulder shrug strong, equal bilaterally, CNXII: Tongue protrusion midline, movement symmetrical. Extrem: normal to inspection and full ROM Mental Status Exam: Appearance: grossly normal Mental Status: mental status grossly normal Mood: dysthymic mood Affect: dysphoric affect Speech and Movement: speech and movement normal and speech clear Attitude: cooperative Thought Process: normal Thought Content: Denied hallucinations, no homicidality, reported suicidality Insight: fair Judgment: fair [facility] Medical History Anxiety and depression Surgical History History of orthopedic surgery Broken left arm as child Family History Other No significant family history Social History Smoking Status: Never smoker Substance Use Type: None Substance Abuse Comment: has not used Meds Medications and Allergies Allergies No Known Allergies Allergy (Verified 07/19/22 18:26) Home Medications aripiprazole 15 mg tablet 15 mg PO DAILY 10/25/22 [History Confirmed 10/25/22] Exam Physical Exam Vital Signs: Temp Resp BP Pulse Ox O2 Del Method 97.6 F 16 148/93 H 95 Room Air 10/25/22 10:28 10/25/22 10:28 10/25/22 10:28 10/25/22 10:28 10/25/22 10:28 Assessment/Plan (1) Major depressive disorder, recurrent: Code(s): F33.9 - Major depressive disorder, recurrent, unspecified Status: Acute Plan Patient presenting due to concern for depression and suicidal ideation with plan We will restart Trileptal 150 mg in the morning and 300 at bedtime,, Abilify 10 mg daily with plan of using Abilify Maintena to help with compliance, Zoloft 100mg daily Continue Seroquel 25 mg at bedtime for sleep Continue to monitor mental status Encourage group participation and medication compliance Risk benefits alternatives explained Documented By: Miguelangel Zhou MD 10/25/22 1219 Signed By: <Electronically signed by Miguelangel Zhou MD> 10/25/22 1221 [facility] Work Phone: 1(582) 342-477608-25-2023 Hospital Discharge instructions Additional Instructions Regular Diet No Activity Restrictions You are due for your next Abilify injection around 11/22/2022. She received her first injection on 10/25/2022 Continue oral Abilify 10 mg for 13 more days then [facility] Work Phone: 1(773) 731-958508-24-2023 Hospital Discharge instructions* Discharge Instructions* Roosevelt Escobar PA-C - 10/24/2022 5:46 PM EDT Follow-up with primary care doctor 7 to 10 days for reevaluation. Avoid movements that worsen your right wrist pain. Continue home medications as prescribed, take Tylenol as directed for right wrist pain. Promptly return to emergency department for new, changing, worsening of symptoms or other concerns. documented in this [facility]-2023 NoteProcedure: AP, oblique, and lateral views of the right wrist. Clinical Information: 42-year-old female fell on the right wrist days ago. Comparison: 10/11/2022 and 09/04/2022. Findings: Bones: No acute fracture, dislocation, or aggressive lesion. Joints: Intact spaces. Soft tissues: Unremarkable. IMPRESSION: Normal right wrist radiographs. Final Dictated by: Arnol Jefferson MD Dictated DT/TM: 10/18/2022 12:56 pm Signed by: Arnol Jefferson MD Signed (Electronic Signature): 10/18/2022 12:58 pm (If Report Is Signed, Electronically Signed in Other Vendor System)[facility]08-14-2023 Hospital Discharge instructions Patient Education 10/14/2022 08:39:12 Managing Anxiety, Adult Managing Anxiety, Adult After being diagnosed with anxiety, you may be relieved to know why you have felt or behaved a certain way. You may also feel overwhelmed about the treatment ahead and what it will mean for your life. With care and support, you can manage this condition. How to manage lifestyle changes Managing stress and anxiety Stress is your body's reaction to life changes and events, both good and bad. Most stress will lastjust a few hours, but stress can be ongoing and can lead to more than just stress. Although stress can play a major role in anxiety, it is not the same as anxiety. Stress is usually caused by something external, such as a deadline, test, or competition. Stress normally passes after the triggering ev ent has ended. Anxiety is caused by something internal, such as imagining a terrible outcome or worrying that something will go wrong that will devastate you. Anxiety often does not go away even after the triggering event is over, and it can become long-term (chronic) worry. It is important to understand the differences between stress and anxiety and to manage your stress effectively so that it does not lead stefan anxious response. Talk with your health care provider or a counselor to learn more about reducing anxiety and stress.He or she may suggest tension reduction techniques, such as: Music therapy. Spend time creating or listening to music that you enjoy and that inspires you. Mindfulness-based meditation. Practice being aware of your normal breaths while not trying to control your breathing. It can be done while sitting or walking. Centering prayer. This involves focusing on a word, phrase, or sacred image that means something toyou and brings you peace. Deep breathing. To do this, expand your stomach and inhale slowly through your nose. Hold your breath for 3 5 seconds. Then exhale slowly, letting your stomach muscles relax. Self-talk. Learn to notice and identify thought patterns that lead to anxiety reactions and change those patterns to thoughts that feel peaceful. Muscle relaxation. Taking time to tense muscles and then relax them. Choose a tension reduction technique that fits your lifestyle and personality. These techniques take time and practice. Set aside 5 15 minutes a day to do them. Therapists can offer counseling and training in these techniques. The training to help with anxiety may be covered by some insurance plans. Other things you can do to manage stress and anxiety include: Keeping a stress diary. This can help you learn what triggers your reaction and then learn ways to manage your response. Thinking about how you react to certain situations. You may not be able to control everything, but you can control your response. Making time for activities that help you relax and not feeling guilty about spending your time in this way. Doing visual imagery. This involves imagining or creating mental pictures to help you relax. Practicing yoga. Through yoga poses, you can lower tension and promote relaxation. Medicines Medicines can help ease symptoms. Medicines for anxiety include: Antidepressant medicines. These are usually prescribed for long-term daily control. Anti-anxiety medicines. These may be added in severe cases, especially when panic attacks occur. Medicines will be prescribed by a health care provider. When used together, medicines, psychotherapy, and tension reduction techniques may be the most effective treatment. Relationships Relationships can play a big part in helping you recover. Try to spend more time connecting with trusted friends and family members. Consider going to couples counseling if you have a partner, taking family education classes, or going to family therapy. Therapy can help you and others better understand your condition. How to recognize changes in your anxiety Everyone responds differently to treatment for anxiety. Recovery from anxiety happens when symptomsdecrease and stop interfering with your daily activities at home or work. This may mean that you will start to: Have better concentration and focus. Worry will interfere less in your daily thinking. Sleep better. Be less irritable. Have more energy. Have improved memory. It is also important to recognize when your condition is getting worse. Contact your health care provider if your symptoms interfere with home or work and you feel like your condition is not improving. Follow these instructions at home: Activity Exercise. Adults should do the following: ?Exercise for at least 150 minutes each week. The exercise should increase your heart rate and makeyou sweat (moderate-intensity exercise). ?Strengthening exercises at least twice a week. Get the right amount and quality of sleep. Most adults need 7 9 hours of sleep each night. Lifestyle Eat a healthy diet that includes plenty of vegetables, fruits, whole grains, low-fat dairy products, and lean protein. ?Do not eat a lot of foods that are high in fats, added sugars, or salt (sodium). Make choices that simplify your life. Do not use any products that contain nicotine or tobacco. These products include cigarettes, chewing tobacco, and vaping devices, such as e-cigarettes. If you need help quitting, ask your health careprovider. Avoid caffeine, alcohol, and certain vjlo-zsq-aaqppwk cold medicines. These may make you feel worse. Ask your pharmacist which medicines to avoid. General instructions Take faum-ivk-ieedzxy and prescription medicines only as told by your health care provider. Keep all follow-up visits. This is important. Where to find support You can get help and support from these sources: Self-help groups. Online and community organizations. A trusted spiritual leader. Couples counseling. Family education classes. Family therapy. Where to find more information You may find that joining a support group helps you deal with your anxiety. The following sources can help you locate counselors or support groups near you: Mental Health [place]: www.mentalhealthamerica.net Anxiety and Depression Association of [place] (ADAA): www.adaa.org National [place] on Mental Illness (FAUSTO): www.fausto.org Contact a health care provider if: You have a hard time staying focused or finishing daily tasks. You spend many hours a day feeling worried about everyday life. You become exhausted by worry. You start to have headaches or frequently feel tense. You develop chronic nausea or diarrhea. Get help right away if: You have a racing heart and shortness of breath. You have thoughts of hurting yourself or others. If you ever feel like you may hurt yourself or others, or have thoughts about taking your own life,get help right away. Go to your nearest emergency department or: Call your local emergency services (291 in the [place] Call a suicide crisis helpline, such as the National Suicide Prevention Lifeline at or 239 in the [place] This is open 24 hours a day in the [place] Text the Crisis Text Line at 007130 (in the [place] Summary Taking steps to learn and use tension reduction techniques can help calm you and help prevent triggering an anxiety reaction. When used together, medicines, psychotherapy, and tension reduction techniques may be the most effective treatment. Family, friends, and partners can play a big part in supporting you. This information is not intended to replace advice given to you by your health care provider. Make sure you discuss any questions you have with your health care provider. Document Revised: 09/12/2021 Document Reviewed: 06/10/2021 [employer] Patient Education 2022 [employer]. Follow Up Care 10/14/2022 06:52:08 With:[facility] Address:Unknown When:10/17/2022 08:34:23 With:COY DAY Address: [address] [place] [address]- Business (1) When:Within 3 Day(s) [facility]08-04-2023 NoteChief Complaint Pt reports need for mental health evaluation. Pt denies any thoughts of harm to herself or anyone else but does report depression and anxiety. History of Present Illness Pt is a 42-year-old female is presenting with complaints of depression with SI and anxiety. Patientreports no specific plan for SI at this time however she lives at home alone with her and he works third shift. She concerned if she goes home alone that she will act upon her thoughts. Patient has attempted in the past. She does follow with mental services and has an upcoming appointment. She reports she is unsure why she is feeling where she has been taking her medications. No specific thing that she can identify to make her feel more symptomatic at this time. No fevers or chills. No nausea or vomiting. No chest pain or shortness of breath. Normal urination and defecation. Review of Systems As reviewed in the HPI. All other systems reviewed are negative or normal. Physical Exam CONSTITUTIONAL: [well appearing in no acute distress] SKIN: [Warm, dry, and intact without rash] EYES: [extraocular movements are grossly intact, clear conjunctiva] HENT: [Normocephalic, atraumatic, moist mucus membranes] NECK: [no obvious swelling, normal range of motion] PULMONARY: [normal chest rise and fall, no respiratory distress or stridor CARDIOVASCULAR: [regular rate, distal extremities are warm and well perfused] GASTROINSTESTINAL: [nondistended, non-tender] GENITOURINARY: [deferred] NEUROLOGIC: [normal speech, moves all extremities] MUSCULOSKELETAL: [no gross deformities, atraumatic] PSYCHIATRIC: [Depressed] Vitals & Measurements T: 36.7 ?C (Oral) HR: 81 (Peripheral) RR: 15 BP: 143/98 SpO2: 100% HT: 157.5 cm WT: 82.7 kg (Dosing) Additional Vitals No qualifying data available. Procedure No qualifying data available. ASA Documentation Medical Decision Making MEDICAL DECISION MAKING Number and Complexity of Problems Differential Diagnosis: _Anxiety, depression, HI, SI, acute psychosis, toxic ingestion, medication induced psychosis MDM Data External documents reviewed: _ My EKG interpretation: _ My CT interpretation: _ My X-ray interpretation: _ My Ultrasound interpretation: _ Decision rules/scores evaluated: _ Discussed with: _ Decision rules/scores evaluated: _ ? HEART Score: Not Completed ? PERC Rule: _ ? NEXUS C-spine Criteria: _ ? Rampart Ankle Rule: _ ? Rampart Knee Rule: _ ? Wells Criteria for DVT: _ ? Wells Criteria for PE: _ Discussed with: _ Treatment and Disposition ED Course: _Patient seen and evaluated. Examination findings as noted above. Psych labs ordered as well as prescreening evaluation. On review of the laboratory values, there are no significant abnormal findings. Prescreener came to evaluate patient was determined that patient was most appropriate for safety planning and discharge home with outpatient mental health follow-up. Cleared for discharge. Shared decision making: _ Code status: _ Assessment/Plan 1. Depression with suicidal ideation 2. Anxiety Orders: Consult to Psychiatric Prescreener Discharge Patient Refresh vitals and sections below: Problem List/Past Medical History Ongoing Anxiety Depression Low serum potassium level Seasonal nasal allergies Historical No qualifying data Procedure/Surgical History wisdom teeth Medications Inpatient No active inpatient medications Home hydrOXYzine hydrochloride 25 mg oral tablet, 25 mg= 1 tabs, Oral, q8hr, PRN Latuda 20 mg oral tablet, 20 mg= 1 tabs, Oral, Daily OXcarbazepine 150 mg oral tablet, 150 mg= 1 tabs, Oral, qAM OXcarbazepine 300 mg oral tablet, 300 mg= 1 tabs, Oral, HS (at bedtime) sertraline 100 mg oral tablet, 100 mg= 1 tabs, Oral, qAM traZODone 100 mg oral tablet, 100 mg= 1 tabs, Oral, HS (at bedtime) Allergies No Known Allergies No Known Medication Allergies Social History Alcohol Never Home/Environment Lives with Significant other. Sexual Sexually active: Yes. History of sexual abuse: No. Substance Abuse Denies All Tobacco Never (less than 100 in lifetime) Use:. Family History Cancer of colon: Father. Dementia: Grandfather (M). Diabetes: Grandfather (M). Stroke..: Grandfather (M). Thyroid disease: Mother. Lab Results Routine Chemistry LATEST RESULTS HISTORICAL RESULTS Sodium Lvl 10/03/22 23:02 136 09/29/22 136 Potassium Lvl 10/03/22 23:02 3.5 09/29/22 3.6 Chloride 10/03/22 23:02 106 09/29/22 105 CO2 10/03/22 23:02 24 09/29/22 24 Anion Gap 10/03/22 23:02 10 09/29/22 11 Glucose Lvl 10/03/22 23:02 113 High 09/29/22 94 BUN 10/03/22 23:02 15 09/29/22 8 Creatinine Lvl 10/03/22 23:02 0.73 09/29/22 0.86 Estimated GFR 10/03/22 23:02 >60 09/29/22 >60 BUN Crea Ratio 10/03/22 23:02 20.5 High 09/29/22 9.3 Low Bili Total 10/03/22 23:02 0.2 Low 09/29/22 0.2 Low (more content not included)...[facility]07-20-2023 Hospital Discharge instructions* Discharge Instructions* Marito Jason MD - 09/19/2022 12:25 PM EDT Take your medication as indicated and prescribed. If you are given an antibiotic, then make sure you get the prescription filled and take the antibiotics until finished. Drink plenty of water while taking the antibiotics. Avoid drinking alcohol or drinks that have caffeine in it while taking antibio tics. For pain use acetaminophen (Tylenol) or ibuprofen (Motrin / Advil), unless prescribed medications that have acetaminophen or ibuprofen (or similar medications) in it. You can take over the counter acetaminophen tablets (1 - 2 tablets of the 500-mg strength every 6 hours) or ibuprofen tablets (2 tablets every 4 hours). PLEASE RETURN TO THE EMERGENCY DEPARTMENT IMMEDIATELY for worsening symptoms, feeling of the room spinning, repeated bouts of dizziness, inability to hear, white discharge coming from your ear, or ifyou develop any concerning symptoms such as: high fever not relieved by acetaminophen (Tylenol) and/or ibuprofen (Motrin / Advil), chills, shortness of breath, chest pain, feeling of your heart fluttering or racing, persistent nausea and/or vomiting, vomiting up blood, blood in your stool, loss of consciousness, numbness, weakness or tingling in the arms or legs or change in color of the extremities, changes in mental status, persistent headache, blurry vision, loss of bladder / bowel control, u nable to follow up with your physician, or other any other care or concern. * Attachments The following attachments cannot be sent through Care Everywhere. * Sinus Rinse (Luxembourger) [facility] + Plan noteExtracted from: Title:ED Note Author:Grant Dos Santos DO Date:08/31 09/22 Bronchitis (J40: Bronchitis, not specified as acute or chronic) Sinusitis (J32.9: Chronic sinusitis, unspecified) Orders: dextromethorphan-promethazine, 5 mL, Oral, q6hr for cough, 120 mL, Refill(s) 0, [facility] #[id number], 157.5, cm, 09/16/22 7:22:00 EDT, Height/Length Dosing, 84, kg, 09/16/22 7:22:00 EDT, Weight Dosing doxycycline, 100 mg = 1 tab(s), Oral, BID, X 7 day(s), # 14 tab(s), Refills(s) 0, Pharmacy: [facility] #[id number], 157.5, cm, 09/16/22 7:22:00 EDT, Height/Length Dosing, 84, kg, 09/16/22 7:22:00 EDT, Weight Dosing loratadine-pseudoephedrine, 1 tab(s), Oral, Daily for 14 day(s), 14 tab(s), Refill(s) 0, [facility] #[id number], 157.5, cm, 09/16/22 7:22:00 EDT, Height/Length Dosing, 84, kg, 09/16/22 7:22:00 EDT, Weight Dosing [facility]07-17-2023 Hospital Discharge instructions Patient Education 09/16/2022 07:40:23 Sinus Infection, Adult, Zvjw-vl-Dnzb Sinus Infection, Adult A sinus infection is soreness and swelling (inflammation) of your sinuses. Sinuses are hollow spaces in the bones around your face. They are located: Around your eyes. In the middle of your forehead. Behind your nose. In your cheekbones. Your sinuses and nasal passages are lined with a fluid called mucus. Mucus drains out of your sinuses. Swelling can trap mucus in your sinuses. This lets germs (bacteria, virus, or fungus) grow, which leads to infection. Most of the time, this condition is caused by a virus. What are the causes? Allergies. Asthma. Germs. Things that block your nose or sinuses. Growths in the nose (nasal polyps). Chemicals or irritants in the air. A fungus. This is rare. What increases the risk? Having a weak body defense system (immune system). Doing a lot of swimming or diving. Using nasal sprays too much. Smoking. What are the signs or symptoms? The main symptoms of this condition are pain and a feeling of pressure around the sinuses. Other symptoms include: Stuffy nose (congestion). This may make it hard to breathe through your nose. Runny nose (drainage). Soreness, swelling, and warmth in the sinuses. A cough that may get worse at night. Being unable to smell and taste. Mucus that collects in the throat or the back of the nose (postnasal drip). This may cause a sore throat or bad breath. Being very tired (fatigued). A fever. How is this diagnosed? Your symptoms. Your medical history. A physical exam. Tests to find out if your condition is short-term (acute) or long-term (chronic). Your doctor may: ?Check your nose for growths (polyps). ?Check your sinuses using a tool that has a light on one end (endoscope). ?Check for allergies or germs. ?Do imaging tests, such as an MRI or CT scan. How is this treated? Treatment for this condition depends on the cause and whether it is short-term or long-term. If caused by a virus, your symptoms should go away on their own within 10 days. You may be given medicines to relieve symptoms. They include: ?Medicines that shrink swollen tissue in the nose. ?A spray that treats swelling of the nostrils. ?Rinses that help get rid of thick mucus in your nose (nasal saline washes). ?Medicines that treat allergies (antihistamines). ?Pjqd-iwt-rtgudmq pain relievers. If caused by bacteria, your doctor may wait to see if you will get better without treatment. You may be given antibiotic medicine if you have: ?A very bad infection. ?A weak body defense system. If caused by growths in the nose, surgery may be needed. Follow these instructions at home: Medicines Take, use, or apply xktg-psb-retdftm and prescription medicines only as told by your doctor. These may include nasal sprays. If you were prescribed an antibiotic medicine, take it as told by your doctor. Do not stop taking it even if you start to feel better. Hydrate and humidify Drink enough water to keep your pee (urine) pale yellow. Use a cool mist humidifier to keep the humidity level in your home above 50%. Breathe in steam for 10 15 minutes, 3 4 times a day, or as told by your doctor. You can do this in the bathroom while a hot shower is running. Try not to spend time in cool or dry air. Rest Rest as much as you can. Sleep with your head raised (elevated). Make sure you get enough sleep each night. General instructions Put a warm, moist washcloth on your face 3 4 times a day, or as often as told by your doctor. Use nasal saline washes as often as told by your doctor. Wash your hands often with soap and water. If you cannot use soap and water, use hand solid waste technician. Do not smoke. Avoid being around people who are smoking (secondhand smoke). Keep all follow-up visits. Contact a doctor if: You have a fever. Your symptoms get worse. Your symptoms do not get better within 10 days. Get help right away if: You have a very bad headache. You cannot stop vomiting. You have very bad pain or swelling around your face or eyes. You have trouble seeing. You feel confused. Your neck is stiff. You have trouble breathing. These symptoms may be an emergency. Get help right away. Call 911. Do not wait to see if the symptoms will go away. Do not drive yourself to the hospital. Summary A sinus infection is swelling of your sinuses. Sinuses are hollow spaces in the bones around your face. This condition is caused by tissues in your nose that become inflamed or swollen. This traps germs.These can lead to infection. If you were prescribed an antibiotic medicine, take it as told by your doctor. Do not stop taking it even if you start to feel better. Keep all follow-up visits. This information is not intended to replace advice given to you by your health care provider. Make sure you discuss any questions you have with your health care provider. Document Revised: 01/22/2022 Document Reviewed: 01/22/2022 [employer] Patient Education 2022 [employer]. 09/16/2022 07:40:23 Acute Bronchitis, Adult, Jokg-mm-Zxbs Acute Bronchitis, Adult Acute bronchitis is when air tubes in the lungs (bronchi) suddenly get swollen. The condition can make it hard for you to breathe. In adults, acute bronchitis usually goes away within 2 weeks. A cough caused by bronchitis may last up to 3 weeks. Smoking, allergies, and asthma can make the conditionworse. What are the causes? Germs that cause cold and flu (viruses). The most common cause of this condition is the virus that causes the common cold. Bacteria. Substances that bother (irritate) the lungs, including: ?Smoke from cigarettes and other types of tobacco. ?Dust and pollen. ?Fumes from chemicals, gases, or burned fuel. ?Indoor or outdoor air pollution. What increases the risk? A weak body's defense system. This is also called the immune system. Any condition that affects your lungs and breathing, such as asthma. What are the signs or symptoms? A cough. Coughing up clear, yellow, or green mucus. Making high-pitched whistling sounds when you breathe, most often when you breathe out (wheezing). Runny or stuffy nose. Having too much mucus in your lungs (chest congestion). Shortness of breath. Body aches. A sore throat. How is this treated? Acute bronchitis may go away over time without treatment. Your doctor may tell you to: Drink more fluids. This will help thin your mucus so it is easier to cough up. Use a device that gets medicine into your lungs (inhaler). Use a vaporizer or a humidifier. These are machines that add water to the air. This helps with coughing and poor breathing. Take a medicine that thins mucus and helps clear it from your lungs. Take a medicine that prevents or stops coughing. It is not common to take an antibiotic medicine for this condition. Follow these instructions at home: Take wkbb-yio-ozprnvl and prescription medicines only as told by your doctor. Use an inhaler, vaporizer, or humidifier as told by your doctor. Take two teaspoons (10 mL) of honey at bedtime. This helps lessen your coughing at night. Drink enough fluid to keep your pee (urine) pale yellow. Do not smoke or use any products that contain nicotine or tobacco. If you need help quitting, ask your doctor. Get a lot of rest. Return to your normal activities when your doctor says that it is safe. Keep all follow-up visits. How is this prevented? Wash your hands often with soap and water for at least 20 seconds. If you cannot use soap and water, use hand solid waste technician. Avoid contact with people who have cold symptoms. Try not to touch your mouth, nose, or eyes with your hands. Avoid breathing in smoke or chemical fumes. Make sure to get the flu shot every year. Contact a doctor if: Your symptoms do not get better in 2 weeks. You have trouble coughing up the mucus. Your cough keeps you awake at night. You have a fever. Get help right away if: You cough up blood. You have chest pain. You have very bad shortness of breath. You faint or keep feeling like you are going to faint. You have a very bad headache. Your fever or chills get worse. These symptoms may be an emergency. Get help right away. Call your local emergency services (911 int [place] Do not wait to see if the symptoms will go away. Do not drive yourself to the hospital. Summary Acute bronchitis is when air tubes in the lungs (bronchi) suddenly get swollen. In adults, acute bronchitis usually goes away within 2 weeks. Drink more fluids. This will help thin your mucus so it is easier to cough up. Take xfzj-faa-yhpoapu and prescription medicines only as told by your doctor. Contact a doctor if your symptoms do not improve after 2 weeks of treatment. This information is not intended to replace advice given to you by your health care provider. Make sure you discuss any questions you have with your health care provider. Document Revised: 06/20/2021 Document Reviewed: 06/20/2021 [employer] Patient Education 2022 [employer] [facility] Follow Up Care 09/16/2022 07:16:46 With:COY DAY Address: [address] [place] [id number] Business (1) When:Within 3 Day(s) [facility]06-28-2023 Evaluation + Plan noteExtracted from: Title:ED Note Author:Alan Zhu DO Date: Nausea (R11.0: Nausea) Near syncope (R55: Syncope and collapse) Orders: cephalexin, 500 mg = 1 cap(s), Oral, q12hr, X 5 day(s), # 10 cap(s), Refills(s) 0 ondansetron, 4 mg = 1 tab(s), Oral, q8hr, # 12 tab(s), Refills(s) 0 ondansetron, 4 mg = 1 tab(s), Tab-Dis, Oral, Once, Stop date 08/28/22 8:11:00 EDT, STAT, Start date 08/28/22 8:11:00 EDT, 08/28/22 8:11:00 EDT Automated Diff Basic Metabolic Panel Beta hCG Qual CBC w/ Auto Diff eGFR PT & PTT Troponin 0 Hr. UA With Cult Reflex Urine Culture XR Chest Single View Diagnostic Tests Pending * Urine Culture 08/28/22 [facility]06-28-2023 Hospital Discharge instructions Patient Education 08/28/2022 08:59:46 Urinary Tract Infection, Adult Urinary Tract Infection, Adult A urinary tract infection (UTI) is an infection of any part of the urinary tract. The urinary tractincludes the kidneys, ureters, bladder, and urethra. These organs make, store, and get rid of urinein the body. An upper UTI affects the ureters and kidneys. A lower UTI affects the bladder and urethra. What are the causes? Most urinary tract infections are caused by bacteria in your genital area around your urethra, where urine leaves your body. These bacteria grow and cause inflammation of your urinary tract. What increases the risk? You are more likely to develop this condition if: You have a urinary catheter that stays in place. You are not able to control when you urinate or have a bowel movement (incontinence). You are female and you: ?Use a spermicide or diaphragm for control. ?Have low estrogen levels. ?Are . You have certain genes that increase your risk. You are sexually active. You take antibiotic medicines. You have a condition that causes your flow of urine to slow down, such as: ?An enlarged prostate, if you are male. ?Blockage in your urethra. ?A kidney stone. ?A nerve condition that affects your bladder control (neurogenic bladder). ?Not getting enough to drink, or not urinating often. You have certain medical conditions, such as: ?Diabetes. ?A weak disease-fighting system (immunesystem). ?Sickle cell disease. ?Gout. ?Spinal cord injury. What are the signs or symptoms? Symptoms of this condition include: Needing to urinate right away (urgency). Frequent urination. This may include small amounts of urine each time you urinate. Pain or burning with urination. Blood in the urine. Urine that smells bad or unusual. Trouble urinating. Cloudy urine. Vaginal discharge, if you are female. Pain in the abdomen or the lower back. You may also have: Vomiting or a decreased appetite. Confusion. Irritability or tiredness. A fever or chills. Diarrhea. The first symptom in older adults may be confusion. In some cases, they may not have any symptoms until the infection has worsened. How is this diagnosed? This condition is diagnosed based on your medical history and a physical exam. You may also have other tests, including: Urine tests. Blood tests. Tests for STIs (sexually transmitted infections). If you have had more than one UTI, a cystoscopy or imaging studies may be done to determine the cause of the infections. How is this treated? Treatment for this condition includes: Antibiotic medicine. Dpmu-lcw-mvapljs medicines to treat discomfort. Drinking enough water to stay hydrated. If you have frequent infections or have other conditions such as a kidney stone, you may need to see a health care provider who specializes in the urinary tract (urologist). In rare cases, urinary tract infections can cause sepsis. Sepsis is a life- threatening condition that occurs when the body responds to an infection. Sepsis is treated in the hospital with IV antibiotics, fluids, and other medicines. Follow these instructions at home: Medicines Take gxts-mkc-nvzhlbs and prescription medicines only as told by your health care provider. If you were prescribed an antibiotic medicine, take it as told by your health care provider. Do notstop using the antibiotic even if you start to feel better. General instructions Make sure you: ?Empty your bladder often and completely. Do not hold urine for long periods of time. ?Empty your bladder after sex. ?Wipe from front to back after urinating or having a bowel movement if you are female. Use each tissue only one time when you wipe. Drink enough fluid to keep your urine pale yellow. Keep all follow-up visits. This is important. Contact a health care provider if: Your symptoms do not get better after 1 2 days. Your symptoms go away and then return. Get help right away if: You have severe pain in your back or your lower abdomen. You have a fever or chills. You have nausea or vomiting. Summary A urinary tract infection (UTI) is an infection of any part of the urinary tract, which includes the kidneys, ureters, bladder, and urethra. Most urinary tract infections are caused by bacteria in your genital area. Treatment for this condition often includes antibiotic medicines. If you were prescribed an antibiotic medicine, take it as told by your health care provider. Do notstop using the antibiotic even if you start to feel better. Keep all follow-up visits. This is important. This information is not intended to replace advice given to you by your health care provider. Make sure you discuss any questions you have with your health care provider. Document Revised: 09/29/2020 Document Reviewed: 09/29/2020 [employer] Patient Education 2022 [employer]. 08/28/2022 08:59:46 Near-Syncope Near-Syncope Near-syncope is when you suddenly feel like you might pass out or faint, but you do not actually lose consciousness. This may also be referred to as presyncope. During an episode of near-syncope, youmay: Feel dizzy, weak, light-headed, or like the room is spinning. Feel nauseous. See spots or see all white or all black in your field of vision. Have cold, clammy skin or feel warm and sweaty. Hear ringing in your ears (tinnitus). This condition is caused by a sudden decrease in blood flow to the brain. This decrease can result from various causes, but most of those causes are not dangerous. However, near-syncope may be a signof a serious medical problem, so it is important to seek medical care. Follow these instructions at home: Medicines Take dryb-kkb-kxcsgkj and prescription medicines only as told by your health care provider. If you are taking blood pressure or heart medicine, get up slowly and take several minutes to sit and then stand. This can reduce dizziness and decrease the risk of near-syncope. Lifestyle Do not drive, use machinery, or play sports until your health care provider says it is okay. Do not drink alcohol. Do not use any products that contain nicotine or tobacco. These products include cigarettes, chewing tobacco, and vaping devices, such as e-cigarettes. If you need help quitting, ask your health careprovider. Avoid hot tubs and saunas. General instructions Pay attention to any changes in your symptoms. Talk with your health care provider about your symptoms. You may need to have testing to understandthe cause of your near-syncope. If you start to feel like you might faint, sit or lie down right away. If sitting, put your head down between your legs. If lying down, raise (elevate) your feet above the level of your heart. ?Breathe deeply and steadily. Wait until all of the symptoms have passed. ?Have someone stay with you until you feel stable. Drink enough fluid to keep your urine pale yellow. Avoid prolonged standing. If you must stand for a long time, do movements such as: ?Moving your legs. ?Crossing your legs. ?Flexing and stretching your leg muscles. ?Squatting. Keep all follow-up visits. This is important. Contact a health care provider if: You continue to have episodes of near fainting. Get help right away if: You faint. You have any of these symptoms that may indicate trouble with your heart: ?Fast or irregular heartbeats (palpitations). ?Unusual pain in your chest, abdomen, or back. ?Shortness of breath. You have a seizure. You have a severe headache. You are confused. You have vision problems. You have severe weakness or trouble walking. You are bleeding from your mouth or rectum, or have black or tarry stool. These symptoms may represent a serious problem that is an emergency. Do not wait to see if your symptoms will go away. Get medical help right away. Call your local emergency services (911 in the [place] Do not drive yourself to the hospital. Summary Near-syncope is when you suddenly feel like you might pass out or faint, but you do not actually lose consciousness. This condition is caused by a sudden decrease in blood flow to the brain. This decrease can result from various causes, but most of those causes are not dangerous. Near-syncope may be a sign of a serious medical problem, so it is important to seek medical care. If you start to feel like you might faint, sit or lie down right away. If sitting, put your head down between your legs. If lying down, raise (elevate) your feet above the level of your heart. Talk with your health care provider about your symptoms. You may need to have testing to understandthe cause of your near-syncope. This information is not intended to replace advice given to you by your health care provider. Make sure you discuss any questions you have with your health care provider. Document Revised: 06/28/2021 Document Reviewed: 06/28/2021 [employer] Patient Education 2022 [employer]. 08/28/2022 08:59:46 Nausea, Adult Nausea, Adult Nausea is the feeling of having an upset stomach or that you are about to vomit. Nausea on its own is not usually a serious concern, but it may be an early sign of a more serious medical problem. As nausea gets worse, it can lead to vomiting. If vomiting develops, or if you are not able to drink enough fluids, you are at risk of becoming dehydrated. Dehydration can make you tired and thirsty, cause you to have a dry mouth, and decrease how often you urinate. Older adults and people with other diseases or a weak disease-fighting system (immune system) are at higher risk for dehydration. The main goals of treating your nausea are: To relieve your nausea. To limit repeated nausea episodes. To prevent vomiting and dehydration. Follow these instructions at home: Watch your symptoms for any changes. Tell your health care provider about them. Eating and drinking Take an oral rehydration solution (ORS). This is a drink that is sold at pharmacies and retail stores. Drink clear fluids slowly and in small amounts as you are able. Clear fluids include water, ice chips, low-calorie sports drinks, and fruit juice that has water added (diluted fruit juice). Eat bland, bgxl-kw-ussfcr foods in small amounts as you are able. These foods include bananas, applesauce, rice, lean meats, toast, and crackers. Avoid drinking fluids that contain a lot of sugar or caffeine, such as energy drinks, sports drinks, and soda. Avoid alcohol. Avoid spicy or fatty foods. General instructions Take mkjw-gtw-thhrulv and prescription medicines only as told by your health care provider. Rest at home while you recover. Drink enough fluid to keep your urine pale yellow. Breathe slowly and deeply when you feel nauseous. Avoid smelling things that have strong odors. Wash your hands often using soap and water for at least 20 seconds. If soap and water are not available, use hand solid waste technician. Make sure that everyone in your household washes their hands well and often. Keep all follow-up visits. This is important. Contact a health care provider if: Your nausea gets worse. Your nausea does not go away after two days. You vomit multiple times. You cannot drink fluids without vomiting. You have any of the following: ?New symptoms. ?A fever. ?A headache. ?Muscle cramps. ?A rash. ?Pain while urinating. You feel light-headed or dizzy. Get help right away if: You have pain in your chest, neck, arm, or jaw. You feel extremely weak or you faint. You have vomit that is bright red or looks like coffee grounds. You have bloody or black stools (feces) or stools that look like tar. You have a severe headache, a stiff neck, or both. You have severe pain, cramping, or bloating in your abdomen. You have difficulty breathing or are breathing very quickly. Your heart is beating very quickly. Your skin feels cold and clammy. You feel confused. You have signs of dehydration, such as: ?Dark urine, very little urine, or no urine. ?Cracked lips. ?Dry mouth. ?Sunken eyes. ?Sleepiness. ?Weakness. These symptoms may be an emergency. Get help right away. Call 911. Do not wait to see if the symptoms will go away. Do not drive yourself to the hospital. Summary Nausea is the feeling that you have an upset stomach or that you are about to vomit. Nausea on its own is not usually a serious concern, but it may be an early sign of a more serious medical problem. If vomiting develops, or if you are not able to drink enough fluids, you are at risk of becoming dehydrated. Follow recommendations for eating and drinking and take qraj-arl-twmjpvj and prescription medicinesonly as told by your health care provider. Contact a health care provider right away if your symptoms worsen or you have new symptoms. Keep all follow-up visits. This is important. This information is not intended to replace advice given to you by your health care provider. Make sure you discuss any questions you have with your health care provider. Document Revised: 08/24/2021 Document Reviewed: 08/24/2021 [employer] Patient Education 2022 [employer]. Follow Up Care 08/28/2022 07:11:04 With:COY DAY Address: [address] [place] [id number] Business (1) When:08/31/2022 08:57:23 Comments:Call the office of your primary care doctor to arrange for follow-up within the above-stated timeframe. Follow-up with your primary care doctor about this ED visit. You should review your labs, imaging, and diagnoses from this ED visit with your primary care physician. There are occasionally non-emergent findings that require additional follow-up after your ED visit. If you were prescribed medications you should discuss possible side-effects and drug interactions with your pharmacist. Call 911 or go to the nearest Emergency Department if you develop any new or worsening symptoms.Seek immediate medical attention if you develop: worsening chest pain, new chest pain, nausea, vomiting, weakness, numbness, tingling, excessive sweating, shortness of breath, difficulty breathing, loss of motion in your arms or legs, or any new or worsening symptoms. [facility]06-19-2023 Hospital Discharge instructions* Discharge Instructions* Shelbie Kwon PA-C - 08/19/2022 12:57 PM EDT I would not change your psychiatric medications at this time. I recommend that you follow-up with your primary care provider outpatient for further evaluation of your medications to see if they are the cause of your chronic ongoing dizziness. * Attachments The following attachments cannot be sent through Care Everywhere. * Dizziness (Luxembourger) [facility] NotePatient Education Materials Name: Rosangela Lindo Current Date: 08/08/2022 12:01:06 Cristy/[facility] : 1980 The following sheet(s) are the Patient Education Leaflets for Rosangela Lindo Ambulatory Assessment/Plan 1. Infected cyst of skin Use warm compresses and topical antibiotics for relief of symptoms. Ordered: mupirocin topical, 1 sharri, Topical, TID, # 15 g, 0 Refill(s), 08/14/22 11:55:00 EDT, Pharmacy: [id number] Infected Epidermoid Cyst (Antibiotic Treatment) You have an epidermoid cyst. This is a small, painless lump under your skin. An epidermoid cyst is often called an epidermal cyst, an epidermal inclusion cyst, or incorrectly, a sebaceous cyst. Epidermoid cysts form slowly under the skin. They can be found on most parts of the body. But they are most often found on areas with more hair such as the scalp, face, upper back, and genitals. Here are some general facts about these cysts: ? A cyst is a sac filled with material that is often cheesy, fatty, oily, or stringy. The material inside can be thick. Or it can be a liquid. ? The area around the cyst may smell bad. If the cyst breaks open, the material inside it often smells bad as well. ? You can usually move the cyst slightly if you try. ? The cyst can be smaller than a pea or as large as a few inches. ? The cyst is usually not painful, unless it becomes inflamed or infected. Your cyst became infected and your healthcare provider wants to treat it with antibiotics. You willlikely take the antibiotics by mouth or apply it as a cream, or both. If the antibiotics don?t clear up the infection, the cyst will need to be drained by making a small cut (incision). Local anesthesia will be used to numb the area before the incision and drainage. Home care ? Resist the temptation to squeeze or pop the cyst, stick a needle in it, or cut it open. This often leads to a worsening infection and scarring. ? If antibiotic pills were prescribed, take them exactly as directed. Finish the antibiotic prescribed, even though you may feel better after the first few days. ? Soak the affected area in hot water or apply a hot pack (a thin, clean towel soaked in hot water)for 20 minutes at a time. Do this 3 to 4 times a day. ? If your healthcare provider recommended it, apply antibiotic cream or ointment 2 to 3 times a day. ? You may use ekmg-skk-abtydeg pain medicine to control pain, unless another medicine was given. Ifyou have chronic liver or kidney disease or ever had a stomach ulcer or gastrointestinal bleeding, talk with your healthcare provider before using these medicines. Prevention Once this infection has healed, reduce the risk of future infections by: ? Keeping the cyst area clean by bathing or showering daily ? Avoiding tight-fitting clothing in the cyst area Follow-up care Follow up with your healthcare provider, or as advised. If a gauze packing was put in your wound, it should be removed in a few days as advised by your healthcare provider. Check your wound every dayfor the signs listed below. When to seek medical advice Call your healthcare provider right away if any of these occur: ? Pus coming from the cyst ? Increasing redness around the wound ? Increasing local pain or swelling ? Fever of 100.4?F (38?C) or higher, or as directed by your provider ? [employer]. [address] [place] [address]. All rights reserved. This information is not intended as a substitute for professional medical care. Always follow your healthcare professional's instructions.[facility]06[facility] Hospital Discharge instructions* Discharge Instructions* Rosangela Osborne APRN - ILA - 08/05/2022 12:03 PM EDT Rest, stay well-hydrated. Continue home medications as previously prescribed. Follow-up with primary care provider within the next 5 days for reevaluation. If any worsening or concerns return to the ER immediately. * Attachments The following attachments cannot be sent through Care Everywhere. * Dizziness (Luxembourger) * Lightheadedness or Faintness (Luxembourger) [facility] [employer] Phone: 1(996) 561-325405-28-2023 Hospital Discharge instructions* Discharge Instructions* Jhoan Galeano MD - 07/28/2022 9:49 PM EDT Return to the ED for changes in strength or sensation to the leg(s), changes in your ability to control bowel or bladder function, blood in the stool or any other concerns. documented in this encounterBON [employer] Phone: [phone]) 688-277905-14-2023 Evaluation + Plan noteExtracted from: Title:ED Note Author:Edwin Jolley DO Date :07/14/22 Abdominal pain, acute (R10.9 : Unspecified abdominal pain) Orders: dicyclomine, 10 mg = 1 cap(s), Cap, Oral, Once, Stop date 07/14/22 2:55:00 EDT, STAT, Start date 07/14/22 2:55:00 EDT, 07/14/22 2:55:00 EDT dicyclomine, 10 mg = 1 cap(s), Oral, QID, X 7 day(s), # 14 cap(s), Refills(s) 0, Pharmacy: [id number], 157, cm, 07/14/22 2:01:00 EDT, Height/Length Dosing, 83.1, kg, 07/14/22 2:01:00 EDT, Weight Dosing ondansetron, 4 mg = 1 tab(s), Oral, q8hr, # 12 tab(s), Refills(s) 0, Pharmacy: [id number], 157, cm, 07/14/22 2:01:00 EDT, Height/Length Dosing, 83.1, kg, 07/14/22 2:01:00 EDT, Weight Dosing Automated Diff Basic Metabolic Panel Beta hCG Qual CBC w/ Auto Diff CT Abdomen/Pelvis w/o Contrast eGFR Extra Blue Tube Hepatic Function Panel Lipase Level UA With Cult Reflex [facility]05-14-2023 Hospital Discharge instructions Patient Education 07/14/2022 06:33:25 Abdominal Pain, Adult, Mbzw-zz-Ljks Abdominal Pain, Adult Many things can cause belly (abdominal) pain. Most times, belly pain is not dangerous. Many cases of belly pain can be watched and treated at home. Sometimes, though, belly pain is serious. Your doctor will try to find the cause of your belly pain. Follow these instructions at home: Medicines Take euww-oye-babrtiy and prescription medicines only as told by your doctor. Do not take medicines that help you poop (laxatives) unless told by your doctor. General instructions Watch your belly pain for any changes. Drink enough fluid to keep your pee (urine) pale yellow. Keep all follow-up visits as told by your doctor. This is important. Contact a doctor if: Your belly pain changes or gets worse. You are not hungry, or you lose weight without trying. You are having trouble pooping (constipated) or have watery poop (diarrhea) for more than 2 3 days. You have pain when you pee or poop. Your belly pain wakes you up at night. Your pain gets worse with meals, after eating, or with certain foods. You are vomiting and cannot keep anything down. You have a fever. You have blood in your pee. Get help right away if: Your pain does not go away as soon as your doctor says it should. You cannot stop vomiting. Your pain is only in areas of your belly, such as the right side or the left lower part of the belly. You have bloody or black poop, or poop that looks like tar. You have very bad pain, cramping, or bloating in your belly. You have signs of not having enough fluid or water in your body (dehydration), such as: ?Dark pee, very little pee, or no pee. ?Cracked lips. ?Dry mouth. ?Sunken eyes. ?Sleepiness. ?Weakness. You have trouble breathing or chest pain. Summary Many cases of belly pain can be watched and treated at home. Watch your belly pain for any changes. Take rlxu-fby-utgkill and prescription medicines only as told by your doctor. Contact a doctor if your belly pain changes or gets worse. Get help right away if you have very bad pain, cramping, or bloating in your belly. This information is not intended to replace advice given to you by your health care provider. Make sure you discuss any questions you have with your health care provider. Document Revised: 06/28/2019 Document Reviewed: 06/28/2019 [employer] Patient Education 2022 [employer]. Follow Up Care 07/14/2022 01:48:44 With:COY DAY Address: [facility] [place] [address] Business (1) When:07/17/2022 06:23:53 Comments:You can use the Bentyl, Zofran as prescribed as needed for pain and nausea. Please follow-up with your primary care doctor in the next 2 to 3 days. Please return to the ED for any new or worsening symptoms. [facility]05-07-2023 Hospital Discharge instructions Patient Education 07/07/2022 21:15:58 Hypokalemia Hypokalemia Hypokalemia means that the amount of potassium in the blood is lower than normal. Potassium is a mineral (electrolyte) that helps regulate the amount of fluid in the body. It also stimulates muscle tightening (contraction) and helps nerves work properly. Normally, most of the body's potassium is inside cells, and only a very small amount is in the blood. Because the amount in the blood is so small, minor changes to potassium levels in the blood can be life-threatening. What are the causes? This condition may be caused by: Antibiotic medicine. Diarrhea or vomiting. Taking too much of a medicine that helps you have a bowel movement (laxative)can cause diarrhea and lead to hypokalemia. Chronic kidney disease (CKD). Medicines that help the body get rid of excess fluid (diuretics). Eating disorders, such as anorexia or bulimia. Low magnesium levels in the body. Sweating a lot. What are the signs or symptoms? Symptoms of this condition include: Weakness. Constipation. Fatigue. Muscle cramps. Mental confusion. Skipped heartbeats or irregular heartbeat (palpitations). Tingling or numbness. How is this diagnosed? This condition is diagnosed with a blood test. How is this treated? This condition may be treated by: Taking potassium supplements. Adjusting the medicines that you take. Eating more foods that contain a lot of potassium. If your potassium level is very low, you may need to get potassium through an IV and be monitored in the hospital. Follow these instructions at home: Eating and drinking Eat a healthy diet. A healthy diet includes fresh fruits and vegetables, whole grains, healthy fats, and lean proteins. If told, eat more foods that contain a lot of potassium. These include: ?Nuts, such as peanuts and pistachios. ?Seeds, such as sunflower seeds and pumpkin seeds. ?Peas, lentils, and arango beans. ?Whole grain and bran cereals and breads. ?Fresh fruits and vegetables, such as apricots, avocado, bananas, cantaloupe, kiwi, oranges, tomatoes, asparagus, and potatoes. ?Juices, such as orange, tomato, and prune. ?Lean meats, including fish. ?Milk and milk products, such as yogurt. General instructions Take kugf-oqf-vzzhidm and prescription medicines only as told by your health care provider. This includes vitamins, natural food products, and supplements. Keep all follow-up visits. This is important. Contact a health care provider if: You have weakness that gets worse. You feel your heart pounding or racing. You vomit. You have diarrhea. You have diabetes and you have trouble keeping your blood sugar in your target range. Get help right away if: You have chest pain. You have shortness of breath. You have vomiting or diarrhea that lasts for more than 2 days. You faint. These symptoms may be an emergency. Get help right away. Call 911. Do not wait to see if the symptoms will go away. Do not drive yourself to the hospital. Summary Hypokalemia means that the amount of potassium in the blood is lower than normal. This condition is diagnosed with a blood test. Hypokalemia may be treated by taking potassium supplements, adjusting the medicines that you take, or eating more foods that are high in potassium. If your potassium level is very low, you may need to get potassium through an IV and be monitored in the hospital. This information is not intended to replace advice given to you by your health care provider. Make sure you discuss any questions you have with your health care provider. Document Revised: 11/01/2021 Document Reviewed: 11/01/2021 [employer] Patient Education 2022 [employer]. 07/07/2022 21:15:58 Nonspecific Chest Pain, Adult Nonspecific Chest Pain, Adult Chest pain is an uncomfortable, tight, or painful feeling in the chest. The pain can feel like a crushing, aching, or squeezing pressure. A person can feel a burning or tingling sensation. Chest paincan also be felt in your back, neck, jaw, shoulder, or arm. This pain can be worse when you move, sneeze, or take a deep breath. Chest pain can be caused by a condition that is life-threatening. This must be treated right away. It can also be caused by something that is not life- threatening. If you have chest pain, it can be hard to know the difference, so it is important to get help right away to make sure that you do not have a serious condition. Some life-threatening causes of chest pain include: Heart attack. A tear in the body's main blood vessel (aortic dissection). Inflammation around your heart (pericarditis). A problem in the lungs, such as a blood clot (pulmonary embolism) or a collapsed lung (pneumothorax). Some non life-threatening causes of chest pain include: Heartburn. Anxiety or stress. Damage to the bones, muscles, and cartilage that make up your chest wall. Pneumonia or bronchitis. Shingles infection (varicella-zoster virus). Your chest pain may come and go. It may also be constant. Your health care provider will do tests and other studies to find the cause of your pain. Treatment will depend on the cause of your chest pain. Follow these instructions at home: Medicines Take edhi-pan-ugfxtvc and prescription medicines only as told by your health care provider. If you were prescribed an antibiotic medicine, take it as told by your health care provider. Do notstop taking the antibiotic even if you start to feel better. Activity Avoid any activities that cause chest pain. Do not lift anything that is heavier than 10 lb (4.5 kg), or the limit that you are told, until your health care provider says that it is safe. Rest as directed by your health care provider. Return to your normal activities only as told by your health care provider. Ask your health care provider what activities are safe for you. Lifestyle Do not use any products that contain nicotine or tobacco, such as cigarettes, e- cigarettes, and chewing tobacco. If you need help quitting, ask your health care provider. Do not drink alcohol. Make healthy lifestyle changes as recommended. These may include: ?Getting regular exercise. Ask your health care provider to suggest some exercises that are safe for you. ?Eating a heart-healthy diet. This includes plenty of fresh fruits and vegetables, whole grains, low-fat (lean) protein, and low-fat dairy products. A dietitian can help you find healthy eating options. ?Maintaining a healthy weight. ?Managing any other health conditions you may have, such as high blood pressure (hypertension) or diabetes. ?Reducing stress, such as with yoga or relaxation techniques. General instructions Pay attention to any changes in your symptoms. It is up to you to get the results of any tests that were done. Ask your health care provider, or the department that is doing the tests, when your results will be ready. Keep all follow-up visits as told by your health care provider. This is important. You may be asked to go for further testing if your chest pain does not go away. Contact a health care provider if: Your chest pain does not go away. You feel depressed. You have a fever. You notice changes in your symptoms or develop new symptoms. Get help right away if: Your chest pain gets worse. You have a cough that gets worse, or you cough up blood. You have severe pain in your abdomen. You faint. You have sudden, unexplained chest discomfort. You have sudden, unexplained discomfort in your arms, back, neck, or jaw. You have shortness of breath at any time. You suddenly start to sweat, or your skin gets clammy. You feel nausea or you vomit. You suddenly feel lightheaded or dizzy. You have severe weakness, or unexplained weakness or fatigue. Your heart begins to beat quickly, or it feels like it is skipping beats. These symptoms may represent a serious problem that is an emergency. Do not wait to see if the symptoms will go away. Get medical help right away. Call your local emergency services (911 in the [place] Do not drive yourself to the hospital. Summary Chest pain can be caused by a condition that is serious and requires urgent treatment. It may also be caused by something that is not life-threatening. Your health care provider may do lab tests and other studies to find the cause of your pain. Follow your health care provider's instructions on taking medicines, making lifestyle changes, and getting emergency treatment if symptoms become worse. Keep all follow-up visits as told by your health care provider. This includes visits for any further testing if your chest pain does not go away. This information is not intended to replace advice given to you by your health care provider. Make sure you discuss any questions you have with your health care provider. Document Revised: 05/03/2021 Document Reviewed: 05/03/2021 [employer] Patient Education 2022 [employer]. Follow Up Care 07/07/2022 18:52:28 With:COY DAY Address: [address] [place] [id number] Business (1) When:Within 3 Day(s) [facility]05-07-2023 Evaluation + Plan noteExtracted from: Title:ED Note Author:Ishmael Fernandez DO Date :07/07/22 Chest pain (R07.9: Chest cleo n, unspecified) Hypokalemia (E87.6: Hypokalemia) Orders: potassium chloride, 40 mEq = 2 tab(s), Tab-ER, Oral, Once, Stop date 07/07/22 20:53:00 EDT, STAT, Start date 07/07/22 20:53:00 EDT, 07/07/22 20:53:00 EDT Automated Diff Basic Metabolic Panel CBC w/ Auto Diff ED Cardiac Monitoring eGFR Oxygen Saturation Oxygen Therapy PT & PTT Saline Lock Insert Troponin 0 Hr. Troponin 3 Hr. XR Chest Single View [facility]04-03-2023 Evaluation note* Encounter Date Diagnosis Assessment Notes Treatment Notes Treatment Clinical Notes Jun, Cough (ICD-10 - R05.9) Jun, Bronchitis (ICD-10 - J40) We will screen the patient for COVID and influenza. Rapid COVID and influenza tests are negative. Exam is consistent with acute bronchitis. Will prescribe prednisone, azithromycin, and benzonatate for her cough. It is reassuring that she is not tachypneic, hypoxic, and in no acute distress. She is mildly tachycardic, but I suspect that this is from the bacterial bronchitis. Given that there are no crackles, she is not hypoxic, or tachypneic, I feel that chest x-ray is not needed at this time. It is also reassuring that she does not have any calf tenderness or leg swelling. Patient given strict return precautions. She understands and agrees with the plan. [employer] Other 03-31-2023 Hospital Discharge instructions Patient Education 05/30/2022 23:14:24 Near-Syncope Near-Syncope Near-syncope is when you suddenly feel like you might pass out (faint), but you do not actually lose consciousness. This may also be referred to as presyncope. During an episode of near-syncope, you may: Feel dizzy, weak, or light-headed. Feel nauseous. See all white or all black in your field of vision, or see spots. Have cold, clammy skin. This condition is caused by a sudden decrease in blood flow to the brain. This decrease can result from various causes, but most of those causes are not dangerous. However, near-syncope may be a signof a serious medical problem, so it is important to seek medical care. Follow these instructions at home: Medicines Take vlvh-seh-dbfkabv and prescription medicines only as told by your health care provider. If you are taking blood pressure or heart medicine, get up slowly and take several minutes to sit and then stand. This can reduce dizziness. General instructions Pay attention to any changes in your symptoms. Talk with your health care provider about your symptoms. You may need to have testing to understandthe cause of your near-syncope. If you start to feel like you might faint, lie down right away and raise (elevate) your feet above the level of your heart. Breathe deeply and steadily. Wait until all of the symptoms have passed. Have someone stay with you until you feel stable. Do not drive, use machinery, or play sports until your health care provider says it is okay. Drink enough fluid to keep your urine pale yellow. Keep all follow-up visits as told by your health care provider. This is important. Get help right away if you: Have a seizure. Have unusual pain in your chest, abdomen, or back. Faint once or repeatedly. Have a severe headache. Are bleeding from your mouth or rectum, or you have black or tarry stool. Have a very fast or irregular heartbeat (palpitations). Are confused. Have trouble walking. Have severe weakness. Have vision problems. These symptoms may represent a serious problem that is an emergency. Do not wait to see if your symptoms will go away. Get medical help right away. Call your local emergency services (911 in the [place] Do not drive yourself to the hospital. Summary Near-syncope is when you suddenly feel like you might pass out (faint), but you do not actually lose consciousness. This condition is caused by a sudden decrease in blood flow to the brain. This decrease can result from various causes, but most of those causes are not dangerous. Near-syncope may be a sign of a serious medical problem, so it is important to seek medical care. This information is not intended to replace advice given to you by your health care provider. Make sure you discuss any questions you have with your health care provider. Document Released: 02/17/2006 Document Revised: 06/11/2019 Document Reviewed: 01/06/2019 [employer] Patient Education 2020 [employer]. Follow Up Care 05/30/2022 21:39:24 With:Armaan SLOAN Address: [address] [place] [address], [place] [address] Business (1) When:Within 3 Day(s) [facility]03-30-2023 Evaluation + Plan noteExtracted from: Title:ED Note Author:Annika Soto PA-C Morgan e:05/30/22 1. Episodic lightheadedness (R42: Dizziness and giddiness) Orders: Automated Diff Basic Metabolic Panel CBC w/ Auto Diff ED Cardiac Monitoring eGFR Oxygen Saturation Oxygen Therapy PT & PTT Saline Lock Insert Troponin 0 Hr. Troponin 3 Hr. Troponin 6 Hr. Troponin 9 Hr. U Beta Hcg Qual UA With Cult Reflex XR Chest Single View 42-year-old female presents to the ED with complaints of intermittent lightheadedness for the last month. Worse today at work. In the ED patient is afebrile, vital signs are stable, no acute distress. Labs reviewed and noted, no concerning findings. EKG shows no acute ST elevation or depression. Troponin within normal limits. No severe electrolyte abnormalities. Mild anemia with hemoglobin of 11.4 which is similar to previous. No leukocytosis. Chest x-ray unremarkable. Results were discussed with the patient. She is able to ambulate without difficulty or dizziness/lightheadedness. Patient discharged home with education on supportive care and instructed to follow with her PCP she is to return to the ED with any new or worsening symptoms. Patient voices understanding and is agreeable to plan. Diagnostic Tests Pending * Urine Culture 05/30/22 [facility]03-07-2023 Hospital Discharge instructions Patient Education 05/07/2022 14:34:27 Sinusitis, Adult Sinusitis, Adult Sinusitis is inflammation of your sinuses. Sinuses are hollow spaces in the bones around your face.Your sinuses are located: Around your eyes. In the middle of your forehead. Behind your nose. In your cheekbones. Mucus normally drains out of your sinuses. When your nasal tissues become inflamed or swollen, mucus can become trapped or blocked. This allows bacteria, viruses, and fungi to grow, which leads to infection. Most infections of the sinuses are caused by a virus. Sinusitis can develop quickly. It can last for up to 4 weeks (acute) or for more than 12 weeks (chronic). Sinusitis often develops after a cold. What are the causes? This condition is caused by anything that creates swelling in the sinuses or stops mucus from draining. This includes: Allergies. Asthma. Infection from bacteria or viruses. Deformities or blockages in your nose or sinuses. Abnormal growths in the nose (nasal polyps). Pollutants, such as chemicals or irritants in the air. Infection from fungi (rare). What increases the risk? You are more likely to develop this condition if you: Have a weak body defense system (immune system). Do a lot of swimming or diving. Overuse nasal sprays. Smoke. What are the signs or symptoms? The main symptoms of this condition are pain and a feeling of pressure around the affected sinuses.Other symptoms include: Stuffy nose or congestion. Thick drainage from your nose. Swelling and warmth over the affected sinuses. Headache. Upper toothache. A cough that may get worse at night. Extra mucus that collects in the throat or the back of the nose (postnasal drip). Decreased sense of smell and taste. Fatigue. A fever. Sore throat. Bad breath. How is this diagnosed? This condition is diagnosed based on: Your symptoms. Your medical history. A physical exam. Tests to find out if your condition is acute or chronic. This may include: ?Checking your nose for nasal polyps. ?Viewing your sinuses using a device that has a light (endoscope). ?Testing for allergies or bacteria. ?Imaging tests, such as an MRI or CT scan. In rare cases, a bone biopsy may be done to rule out more serious types of fungal sinus disease. How is this treated? Treatment for sinusitis depends on the cause and whether your condition is chronic or acute. If caused by a virus, your symptoms should go away on their own within 10 days. You may be given medicines to relieve symptoms. They include: ?Medicines that shrink swollen nasal passages (topical intranasal decongestants). ?Medicines that treat allergies (antihistamines). ?A spray that eases inflammation of the nostrils (topical intranasal corticosteroids). ?Rinses that help get rid of thick mucus in your nose (nasal saline washes). If caused by bacteria, your health care provider may recommend waiting to see if your symptoms improve. Most bacterial infections will get better without antibiotic medicine. You may be given antibiotics if you have: ?A severe infection. ?A weak immune system. If caused by narrow nasal passages or nasal polyps, you may need to have surgery. Follow these instructions at home: Medicines Take, use, or apply iklx-yul-ouljgxc and prescription medicines only as told by your health care provider. These may include nasal sprays. If you were prescribed an antibiotic medicine, take it as told by your health care provider. Do notstop taking the antibiotic even if you start to feel better. Hydrate and humidify Drink enough fluid to keep your urine pale yellow. Staying hydrated will help to thin your mucus. Use a cool mist humidifier to keep the humidity level in your home above 50%. Inhale steam for 10 15 minutes, 3 4 times a day, or as told by your health care provider. You can do this in the bathroom while a hot shower is running. Limit your exposure to cool or dry air. Rest Rest as much as possible. Sleep with your head raised (elevated). Make sure you get enough sleep each night. General instructions Apply a warm, moist washcloth to your face 3 4 times a day or as told by your health care provider.This will help with discomfort. Wash your hands often with soap and water to reduce your exposure to germs. If soap and water are not available, use hand solid waste technician. Do not smoke. Avoid being around people who are smoking (secondhand smoke). Keep all follow-up visits as told by your health care provider. This is important. Contact a health care provider if: You have a fever. Your symptoms get worse. Your symptoms do not improve within 10 days. Get help right away if: You have a severe headache. You have persistent vomiting. You have severe pain or swelling around your face or eyes. You have vision problems. You develop confusion. Your neck is stiff. You have trouble breathing. Summary Sinusitis is soreness and inflammation of your sinuses. Sinuses are hollow spaces in the bones around your face. This condition is caused by nasal tissues that become inflamed or swollen. The swelling traps or blocks the flow of mucus. This allows bacteria, viruses, and fungi to grow, which leads to infection. If you were prescribed an antibiotic medicine, take it as told by your health care provider. Do notstop taking the antibiotic even if you start to feel better. Keep all follow-up visits as told by your health care provider. This is important. This information is not intended to replace advice given to you by your health care provider. Make sure you discuss any questions you have with your health care provider. Document Released: 02/17/2006 Document Revised: 07/20/2018 Document Reviewed: 07/20/2018 [employer] Patient Education 2020 [employer]. Follow Up Care 05/07/2022 12:54:23 With:NATHALIA DUNN FAAFP, Armaan Goldstein, SUNG, PED Address: [address] [place], [place] [address] [place] [address]- When:05/10/2022 [facility]03-07-2023 Evaluation + Plan noteExtracted from: Title:ED Note Author:Bonnie Hutchinson PA-C ate:05/07/22 1. Congestion of nasal sinus (R09.81: Nasal congestion) Ordered: fluticasone nasal, 2 spray(s), Nasal, Daily, 16 gram, Refill(s) 0, each nostril, [id number] 157, cm, 05/07/22 12:59:00 EST, Height/Length Dosing, 73, kg, 05/07/22 12:59:00 EST, Weight Dosing loratadine, 10 mg = 1 tab(s), Oral, Daily, # 30 tab(s), Refills(s) 0, Pharmacy: [id number], 157, cm, 05/07/22 12:59:00 EST, Height/Length Dosing, 73, kg, 05/07/22 12:59:00 EST, Weight Dosing 2. Cough (R05.9: Cough, unspecified) [facility]01-27-2023 Evaluation + Plan noteExtracted from: Title:ED Note Author:Alan Zhu DO Date: Hand pain (M79.643: Pain in unspecified hand) Orders: methylPREDNISolone, = 1 packet(s), Oral, As Directed, as directed on package labeling, X 6 day(s), # 21 tab(s), Refills(s) 0, Pharmacy: [id number], 157, cm, 03/29/22 10:42:00 EST, Height/Length Dosing, 73, kg, 03/29/22 10:42:00 EST, Weight Dosing [facility]01-27-2023 Hospital Discharge instructions Patient Education 03/29/2022 10:50:14 Hand Pain Hand Pain Many things can cause hand pain. Some common causes are: An injury. Repeating the same movement with your hand over and over (overuse). Osteoporosis. Arthritis. Lumps in the tendons or joints of the hand and wrist (ganglion cysts). Nerve compression syndromes (carpal tunnel syndrome). Inflammation of the tendons (tendinitis). Infection. Follow these instructions at home: Pay attention to any changes in your symptoms. Take these actions to help with your discomfort: Managing pain, stiffness, and swelling Take qlrh-jqf-judpiac and prescription medicines only as told by your health care provider. Wear a hand splint or support as told by your health care provider. If directed, put ice on the affected area: ?Put ice in a plastic bag. ?Place a towel between your skin and the bag. ?Leave the ice on for 20 minutes, 2 3 times a day. Activity Take breaks from repetitive activity often. Avoid activities that make your pain worse. Minimize stress on your hands and wrists as much as possible. Do stretches or exercises as told by your health care provider. Do not do activities that make your pain worse. Contact a health care provider if: Your pain does not get better after a few days of self-care. Your pain gets worse. Your pain affects your ability to do your daily activities. Get help right away if: Your hand becomes warm, red, or swollen. Your hand is numb or tingling. Your hand is extremely swollen or deformed. Your hand or fingers turn white or blue. You cannot move your hand, wrist, or fingers. Summary Many things can cause hand pain. Contact your health care provider if your pain does not get better after a few days of self care. Minimize stress on your hands and wrists as much as possible. Do not do activities that make your pain worse. This information is not intended to replace advice given to you by your health care provider. Make sure you discuss any questions you have with your health care provider. Document Released: 03/15/2016 Document Revised: 11/13/2018 Document Reviewed: 11/13/2018 [employer] Patient Education 2020 [employer]. 03/29/2022 10:50:14 Hand Exercises Hand Exercises Hand exercises can be helpful for almost anyone. These exercises can strengthen the hands, improve flexibility and movement, and increase blood flow to the hands. These results can make work and daily tasks easier. Hand exercises can be especially helpful for people who have joint pain from arthritis or have nerve damage from overuse (carpal tunnel syndrome). These exercises can also help people who have injured a hand. Exercises Most of these hand exercises are gentle stretching and motion exercises. It is usually safe to do them often throughout the day. Warming up your hands before exercise may help to reduce stiffness. You can do this with gentle massage or by placing your hands in warm water for 10 15 minutes. It is normal to feel some stretching, pulling, tightness, or mild discomfort as you begin new exercises. This will gradually improve. Stop an exercise right away if you feel sudden, severe pain or your pain gets worse. Ask your health care provider which exercises are best for you. Knuckle bend or claw fist 1.Stand or sit with your arm, hand, and all five fingers pointed straight up. Make sure to keep your wrist straight during the exercise. 2.Gently bend your fingers down toward your palm until the tips of your fingers are touching the top of your palm. Keep your big knuckle straight and just bend the small knuckles in your fingers. 3.Hold this position for seconds. 4.Straighten (extend) your fingers back to the starting position. Repeat this exercise 5 10 times with each hand. Full finger fist 1.Stand or sit with your arm, hand, and all five fingers pointed straight up. Make sure to keep your wrist straight during the exercise. 2.Gently bend your fingers into your palm until the tips of your fingers are touching the middle ofyour palm. 3.Hold this position for seconds. 4.Extend your fingers back to the starting position, stretching every joint fully. Repeat this exercise 5 10 times with each hand. Straight fist 1.Stand or sit with your arm, hand, and all five fingers pointed straight up. Make sure to keep your wrist straight during the exercise. 2.Gently bend your fingers at the big knuckle, where your fingers meet your hand, and the middle knuckle. Keep the knuckle at the tips of your fingers straight and try to touch the bottom of your palm. 3.Hold this position for seconds. 4.Extend your fingers back to the starting position, stretching every joint fully. Repeat this exercise 5 10 times with each hand. Tabletop 1.Stand or sit with your arm, hand, and all five fingers pointed straight up. Make sure to keep your wrist straight during the exercise. 2.Gently bend your fingers at the big knuckle, where your fingers meet your hand, as far down as you can while keeping the small knuckles in your fingers straight. Think of forming a tabletop with your fingers. 3.Hold this position for seconds. 4.Extend your fingers back to the starting position, stretching every joint fully. Repeat this exercise 5 10 times with each hand. Finger spread 1.Place your hand flat on a table with your palm facing down. Make sure your wrist stays straight as you do this exercise. 2.Spread your fingers and thumb apart from each other as far as you can until you feel a gentle stretch. Hold this position for seconds. 3.Bring your fingers and thumb tight together again. Hold this position for seconds. Repeat this exercise 5 10 times with each hand. Making circles 1.Stand or sit with your arm, hand, and all five fingers pointed straight up. Make sure to keep your wrist straight during the exercise. 2.Make a [place] by touching the tip of your thumb to the tip of your index finger. 3.Hold for seconds. Then open your hand wide. 4.Repeat this motion with your thumb and each finger on your hand. Repeat this exercise 5 10 times with each hand. Thumb motion 1.Sit with your forearm resting on a table and your wrist straight. Your thumb should be facing up toward the ceiling. Keep your fingers relaxed as you move your thumb. 2.Lift your thumb up as high as you can toward the ceiling. Hold for seconds. 3.Bend your thumb across your palm as far as you can, reaching the tip of your thumb for the small finger (pinkie) side of your palm. Hold for seconds. Repeat this exercise 5 10 times with each hand. Certified Orthoptist strengthening 1.Hold a stress ball or other soft ball in the middle of your hand. 2.Slowly increase the pressure, squeezing the ball as much as you can without causing pain. Think of bringing the tips of your fingers into the middle of your palm. All of your finger joints should bend when doing this exercise. 3.Hold your squeeze for seconds, then relax. Repeat this exercise 5 10 times with each hand. Contact a health care provider if: Your hand pain or discomfort gets much worse when you do an exercise. Your hand pain or discomfort does not improve within 2 hours after you exercise. If you have any of these problems, stop doing these exercises right away. Do not do them again unless your health care provider says that you can. Get help right away if: You develop sudden, severe hand pain or swelling. If this happens, stop doing these exercises rightaway. Do not do them again unless your health care provider says that you can. This information is not intended to replace advice given to you by your health care provider. Make sure you discuss any questions you have with your health care provider. Document Released: 01/29/2016 Document Revised: 06/10/2019 Document Reviewed: 02/18/2019 [employer] Patient Education 2020 [employer]. Follow Up Care 03/29/2022 10:36:52 With:[facility]: [facility] [phone] Address:Unknown When:04/01/2022 10:48:10 Comments:Follow-up to discuss your chronic tendinitis With:Dat WILSON Address: [address] [place], [place] [id number] [facility] (1) When:04/01/2022 10:48:05 Comments:Call the office of your primary care doctor to arrange for follow-up within the above-stated timeframe. Follow-up with your primary care doctor about this ED visit. You should review your labs, imaging, and diagnoses from this ED visit with your primary care physician. If you were prescribed medications you should discuss possible side-effects and drug interactions with your pharmacist. Call 911 or go to the nearest Emergency Department if you develop any new or worsening symptoms. [facility]2023 Hospital Discharge instructions Patient Education 03/14/2022 14:18:59 RICE Therapy for Routine Care of Injuries RICE Therapy for Routine Care of Injuries The routine care of many injuries includes rest, ice, compression, and elevation (RICE therapy). RICE therapy is often recommended for injuries to soft tissues, such as muscle strain, sprains, bruises, and overuse injuries. It can also be used for some bone injuries. Using RICE therapy can help to relieve pain and lessen swelling. Supplies needed: Ice. Plastic bag. Towel. Elastic bandage. Pillow or pillows to raise (elevate) the injured body part. How to care for your injury with RICE therapy Rest Rest your injury. This may help with the healing process. Rest usually involves limiting your normal activities and not using the injured part of your body. Generally, you can return to your normal activities when your health care provider says it is okay and you can do them without much discomfort. If you rest the injury too much, it may not heal as well. Some injuries heal better with early movement instead of resting for too long. Talk with your health care provider about how you should limityour activities and whether you should start nddqb-we-hiupeu exercises for your injury. Ice Ice your injury to lessen swelling and pain. Do not apply ice directly to your skin. Put ice in a plastic bag. Place a towel between your skin and the bag. Leave the ice on for 20 minutes, 2 3 times a day. Use ice on as many days as told by your health care provider. Compression Put pressure (compression) on your injured area to control swelling, give support, and help with discomfort. Compression may be done with an elastic bandage. If an elastic bandage has been applied, follow these general tips: Use the bandage as directed by the maker of the bandage that you are using. Do not wrap the bandage too tightly. That may block (cut off) circulation in the arm or leg in the area below the bandage. ?If part of your body beyond the bandage becomes blue, numb, cold, swollen, or more painful, your bandage is probably too tight. If this occurs, remove your bandage and reapply it more loosely. Remove and reapply the bandage every 3 4 hours or as told by your health care provider. See your health care provider if the bandage seems to be making your problems worse rather than better. Elevation Elevate your injured area to lessen swelling and pain. If possible, elevate your injured area at orabove the level of your heart or the center of your chest. Contact a health care provider if: Your pain and swelling continue. Your symptoms are getting worse rather than improving. Having these problems may mean that you need further evaluation or imaging tests, such as X-rays sherry MRI. Sometimes, X-rays may not show a small broken bone (fracture) until days after the injury happened. Make a follow-up appointment with your health care provider. Ask your health care provider,or the department that is doing the imaging test, when your results will be ready. Get help right away if: You have sudden severe pain at or below the area of your injury. You have redness or increased swelling around your injury. You have tingling or numbness at or below the area of your injury and it does not improve after youremove the elastic bandage. Summary The routine care of many injuries includes rest, ice, compression, and elevation (RICE therapy). Using RICE therapy can help to relieve pain and lessen swelling. RICE therapy is often recommended for injuries to soft tissues, such as muscle strain, sprains, bruises, and overuse injuries. It can also be used for some bone injuries. Seek medical care if your pain and swelling continue or if your symptoms are getting worse rather than improving. This information is not intended to replace advice given to you by your health care provider. Make sure you discuss any questions you have with your health care provider. Document Released: 06/01/2001 Document Revised: 11/07/2017 Document Reviewed: 11/07/2017 [employer] Patient Education 2020 [employer] Follow Up Care 03/14/2022 13:23:42 With:Dat WILSON Address: [address] [place], [place] [id number] [facility] (1) When:03/17/2022 14:18:43 Comments:Follow-up for evaluation of ongoing pain [facility]2023 Evaluation + Plan noteExtracted from: Title:ED Note Author:Yan Burnham PA-C Morgan e:03/14/22 Tendonitis (M77.9: Enthesopa thy, unspecified) Orders: ketorolac, 30 mg = 1 mL, Injection, IntraMuscular, Once, Stop date 03/14/22 14:17:00 EST, STAT, Start date 03/14/22 14:17:00 EST, 03/14/22 14:17:00 EST Splint Application Wrist [facility]11-29-2022 Evaluation + Plan noteExtracted from: Title:ED Note Author:Ishmael Fernandez DO Date :01/29/22 Suicidal ideation (R45.851: Suicidal ideations) Orders: Automated Diff CBC w/ Auto Diff Communication Order Comprehensive Metabolic Panel Consult to Mental Health Drug Screen Urine ECG 12 Lead Adult eGFR Ethanol Level Extra SST Tube Rapid COVID Antigen ([facility]) Addendum by Grant Dos Santos DO on January 29, 2022 11:15:26 EST Patient was signed out to me by the prior physician has been evaluated by mental health professionals and has been deemed safe for discharge with a safety plan with family patient and family are comfortable with this plan and are discharged home follow-up with counselors in the outpatient setting return to ER symptoms change worsen or recur. [facility]11-29-2022 Hospital Discharge instructions Patient Education 01/29/2022 11:23:14 Suicidal Feelings: How to Help Yourself Suicidal Feelings: How to Help Yourself Suicide is when you end your own life. There are many things you can do to help yourself feel better when struggling with these feelings. Many services and people are available to support you and others who struggle with similar feelings. If you ever feel like you may hurt yourself or others, or have thoughts about taking your own life,get help right away. To get help: Call your local emergency services (911 in the [place] The [facility] services helpline (211 in the [place] Go to your nearest emergency department. Call a suicide hotline to speak with a trained counselor. The following suicide hotlines are available in the [place]: ?9-689-406-TALK ( ). ?2-289-MMZFIRH ( ). ? . This is a hotline for Beninese speakers. ? . This is a hotline for TTY users. ?1-924-0-U-MOOK ( ). This is a hotline for lesbian, varma, bisexual, transgender, or questioning youth. ?For a list of hotlines in [place], visit www.suicide.org/hotlines/international/pvnbka-gxegyxb-bhgbidwh.html Contact a crisis center or a local suicide prevention center. To find a crisis center or suicide prevention center: ?Call your local hospital, clinic, community service organization, mental health center, social service provider, or health department. Ask for help with connecting to a crisis center. ?For a list of crisis centers in the [place], visit: suicidepreventionlifeline.org ?For a list of crisis centers in [place], visit: suicideprevention.sd How to help yourself feel better Promise yourself that you will not do anything extreme when you have suicidal feelings. Remember, there is hope. Many people have gotten through suicidal thoughts and feelings, and you can too. If you have had these feelings before, remind yourself that you can get through them again. Let family, friends, teachers, or counselors know how you are feeling. Try not to separate yourselffrom those who care about you and want to help you. Talk with someone every day, even if you do notfeel sociable. Qoiy-fc-jsqe conversation is best to help them understand your feelings. Contact a mental health care provider and work with this person regularly. Make a safety plan that you can follow during a crisis. Include phone numbers of suicide preventionhotlines, mental health professionals, and trusted friends and family members you can call during an emergency. Save these numbers on your phone. If you are thinking of taking a lot of medicine, give your medicine to someone who can give it to you as prescribed. If you are on antidepressants and are concerned you will overdose, tell your health care provider so that he or she can give you safer medicines. Try to stick to your routines. Follow a schedule every day. Make self-care a priority. Make a list of realistic goals, and cross them off when you achieve them. Accomplishments can give you a sense of worth. Wait until you are feeling better before doing things that you find difficult or unpleasant. Do things that you have always enjoyed to take your mind off your feelings. Try reading a book, or listening to or playing music. Spending time outside, in nature, may help you feel better. Follow these instructions at home: Visit your primary health care provider every year for a checkup. Work with a mental health care provider as needed. Eat a well-balanced diet, and eat regular meals. Get plenty of rest. Exercise if you are able. Just 30 minutes of exercise each day can help you feel better. Take ttvf-ltl-ymajqkf and prescription medicines only as told by your health care provider. Ask your mental health care provider about the possible side effects of any medicines you are taking. Do not use alcohol or drugs, and remove these substances from your home. Remove weapons, poisons, knives, and other deadly items from your home. General recommendations Keep your living space well lit. When you are feeling well, write yourself a letter with tips and support that you can read when youare not feeling well. Remember that life's difficulties can be sorted out with help. Conditions can be treated, and you can learn behaviors and ways of thinking that will help you. Where to find more information National Suicide Prevention Lifeline: www.suicidepreventionlifeline.org Hopeline: www.hopeline.com [place] [employer] for Suicide Prevention: www.afsp.org The Mook Project (for lesbian, varma, bisexual, transgender, or questioning youth): www.thetrevorproject.org Contact a health care provider if: You feel as though you are a burden to others. You feel agitated, angry, vengeful, or have extreme mood swings. You have withdrawn from family and friends. Get help right away if: You are talking about suicide or wishing to . You start making plans for how to commit suicide. You feel that you have no reason to live. You start making plans for putting your affairs in order, saying goodbye, or giving your possessions away. You feel guilt, shame, or unbearable pain, and it seems like there is no way out. You are frequently using drugs or alcohol. You are engaging in risky behaviors that could lead to . If you have any of these symptoms, get help right away. Call emergency services, go to your [facility] or crisis center, or call a suicide crisis helpline. Summary Suicide is when you take your own life. Promise yourself that you will not do anything extreme when you have suicidal feelings. Let family, friends, teachers, or counselors know how you are feeling. Get help right away if you feel as though life is getting too tough to handle and you are thinking about suicide. This information is not intended to replace advice given to you by your health care provider. Make sure you discuss any questions you have with your health care provider. Document Released: 08/24/2003 Document Revised: 06/10/2019 Document Reviewed: 09/30/2017 [employer] Patient Education 2020 [employer]. Follow Up Care 01/29/2022 04:31:15 With:[facility] Address:Unknown When:1 to 2 days With:Monika Mena Address: [address] , [facility] [address] [place] [address] Business (1) When:Within 3 Day(s) [facility]11-15-2022 Hospital Discharge instructions Patient Education 01/15/2022 12:55:09 Sinusitis, Adult, Cxxw-ex-Zzzo Sinusitis, Adult Sinusitis is soreness and swelling (inflammation) of your sinuses. Sinuses are hollow spaces in thebones around your face. They are located: Around your eyes. In the middle of your forehead. Behind your nose. In your cheekbones. Your sinuses and nasal passages are lined with a fluid called mucus. Mucus drains out of your sinuses. Swelling can trap mucus in your sinuses. This lets germs (bacteria, virus, or fungus) grow, which leads to infection. Most of the time, this condition is caused by a virus. What are the causes? This condition is caused by: Allergies. Asthma. Germs. Things that block your nose or sinuses. Growths in the nose (nasal polyps). Chemicals or irritants in the air. Fungus (rare). What increases the risk? You are more likely to develop this condition if: You have a weak body defense system (immune system). You do a lot of swimming or diving. You use nasal sprays too much. You smoke. What are the signs or symptoms? The main symptoms of this condition are pain and a feeling of pressure around the sinuses. Other symptoms include: Stuffy nose (congestion). Runny nose (drainage). Swelling and warmth in the sinuses. Headache. Toothache. A cough that may get worse at night. Mucus that collects in the throat or the back of the nose (postnasal drip). Being unable to smell and taste. Being very tired (fatigue). A fever. Sore throat. Bad breath. How is this diagnosed? This condition is diagnosed based on: Your symptoms. Your medical history. A physical exam. Tests to find out if your condition is short-term (acute) or long-term (chronic). Your doctor may: ?Check your nose for growths (polyps). ?Check your sinuses using a tool that has a light (endoscope). ?Check for allergies or germs. ?Do imaging tests, such as an MRI or CT scan. How is this treated? Treatment for this condition depends on the cause and whether it is short-term or long-term. If caused by a virus, your symptoms should go away on their own within 10 days. You may be given medicines to relieve symptoms. They include: ?Medicines that shrink swollen tissue in the nose. ?Medicines that treat allergies (antihistamines). ?A spray that treats swelling of the nostrils. ?Rinses that help get rid of thick mucus in your nose (nasal saline washes). If caused by bacteria, your doctor may wait to see if you will get better without treatment. You may be given antibiotic medicine if you have: ?A very bad infection. ?A weak body defense system. If caused by growths in the nose, you may need to have surgery. Follow these instructions at home: Medicines Take, use, or apply qjvn-qud-doafzxo and prescription medicines only as told by your doctor. These may include nasal sprays. If you were prescribed an antibiotic medicine, take it as told by your doctor. Do not stop taking the antibiotic even if you start to feel better. Hydrate and humidify Drink enough water to keep your pee (urine) pale yellow. Use a cool mist humidifier to keep the humidity level in your home above 50%. Breathe in steam for 10 15 minutes, 3 4 times a day, or as told by your doctor. You can do this in the bathroom while a hot shower is running. Try not to spend time in cool or dry air. Rest Rest as much as you can. Sleep with your head raised (elevated). Make sure you get enough sleep each night. General instructions Put a warm, moist washcloth on your face 3 4 times a day, or as often as told by your doctor. This will help with discomfort. Wash your hands often with soap and water. If there is no soap and water, use hand solid waste technician. Do not smoke. Avoid being around people who are smoking (secondhand smoke). Keep all follow-up visits as told by your doctor. This is important. Contact a doctor if: You have a fever. Your symptoms get worse. Your symptoms do not get better within 10 days. Get help right away if: You have a very bad headache. You cannot stop throwing up (vomiting). You have very bad pain or swelling around your face or eyes. You have trouble seeing. You feel confused. Your neck is stiff. You have trouble breathing. Summary Sinusitis is swelling of your sinuses. Sinuses are hollow spaces in the bones around your face. This condition is caused by tissues in your nose that become inflamed or swollen. This traps germs.These can lead to infection. If you were prescribed an antibiotic medicine, take it as told by your doctor. Do not stop taking it even if you start to feel better. Keep all follow-up visits as told by your doctor. This is important. This information is not intended to replace advice given to you by your health care provider. Make sure you discuss any questions you have with your health care provider. Document Released: 08/05/2008 Document Revised: 07/20/2018 Document Reviewed: 07/20/2018 [employer] Patient Education 2020 [employer]. 01/15/2022 12:55:09 Sinus Headache Sinus Headache A sinus headache occurs when your sinuses become clogged or swollen. Sinuses are air-filled spaces in your skull that are behind the bones of your face and forehead. Sinus headaches can range from mild to severe. What are the causes? A sinus headache can result from various conditions that affect the sinuses. Common causes include: Colds. Sinus infections. Allergies. Many people confuse sinus headaches with migraines or tension headaches because those headaches canalso cause facial pain and nasal symptoms. What are the signs or symptoms? The main symptom of this condition is a headache that may feel like pain or pressure in your face, forehead, ears, or upper teeth. People who have a sinus headache often have other symptoms, such as: Congested or runny nose. Fever. Inability to smell. Weather changes can make symptoms worse. How is this diagnosed? This condition may be diagnosed based on: A physical exam and medical history. Imaging tests, such as a CT scan or MRI, to check for problems with the sinuses. Examination of the sinuses using a thin tool with a camera that is inserted through your nose (endoscopy). How is this treated? Treatment for this condition depends on the cause. Sinus pain that is caused by a sinus infection may be treated with antibiotic medicine. Sinus pain that is caused by allergies may be helped by allergy medicines (antihistamines) and medicated nasal sprays. Sinus pain that is caused by congestion may be helped by rinsing out (flushing) the nose and sinuses with saline solution. Sinus surgery may be needed in some cases if other treatments do not help. Follow these instructions at home: General instructions If directed: ?Apply a warm, moist washcloth to your face to help relieve pain. ?Use a nasal saline wash. Medicines Take jgbq-hws-ftqavpo and prescription medicines only as told by your health care provider. If you were prescribed an antibiotic medicine, take it as told by your health care provider. Do notstop taking the antibiotic even if you start to feel better. If you have congestion, use a nasal spray to help lessen pressure. Hydrate and humidify Drink enough water to keep your urine clear or pale yellow. Staying hydrated will help to thin yourmucus. Use a cool mist humidifier to keep the humidity level in your home above 50%. Inhale steam for 10 15 minutes, 3 4 times a day or as told by your health care provider. You can dothis in the bathroom while a hot shower is running. Limit your exposure to cool or dry air. Contact a health care provider if: You have a headache more than one time a week. You have sensitivity to light or sound. You develop a fever. You feel nauseous or you vomit. Your headaches do not get better with treatment. Many people think that they have a sinus headache when they actually have a migraine or a tension headache. Get help right away if: You have vision problems. You have sudden, severe pain in your face or head. You have a seizure. You are confused. You have a stiff neck. Summary A sinus headache occurs when your sinuses become clogged or swollen. A sinus headache can result from various conditions that affect the sinuses, such as a cold, a sinus infection, or an allergy. Treatment for this condition depends on the cause. It may include medicine, such as antibiotics or antihistamines. This information is not intended to replace advice given to you by your health care provider. Make sure you discuss any questions you have with your health care provider. Document Released: 03/27/2005 Document Revised: 01/30/2018 Document Reviewed: 11/28/2017 [employer] Patient Education 2020 [employer]. Follow Up Care 01/15/2022 12:00:16 With:Monika Mena Address: [address] [place] [address]- Business (1) When:Within 3 Day(s) [facility]11-15-2022 Evaluation + Plan noteExtracted from: Title:ED Note Author:Grant Dos Santos DO Date: Sinusitis (J32.9: Chronic si nusitis, unspecified) Ordered: cetirizine-pseudoephedrine, 1 tab(s), Oral, BID, 30 tab(s), Refill(s) 0, 158, cm, 01/15/22 12:06:00 EST, Height/Length Dosing, 73, kg, 01/15/22 12:06:00 EST, Weight Dosing Orders: amoxicillin-clavulanate, 1 tab(s), Oral, BID for 7 day(s), 14 tab(s), Refill(s) 0, 158, cm, 01/15/22 12:06:00 EST, Height/Length Dosing, 73, kg, 01/15/22 12:06:00 EST, Weight Dosing fluticasone nasal, 1 spray(s), Nasal, Daily, 1 EA, Refill(s) 0, 158, cm, 01/15/22 12:06:00 EST, Height/Length Dosing, 73, kg, 01/15/22 12:06:00 EST, Weight Dosing [facility]10-04-2022 Hospital Discharge instructions Patient Education 12/04/2021 16:44:58 Sinusitis, Adult Sinusitis, Adult Sinusitis is inflammation of your sinuses. Sinuses are hollow spaces in the bones around your face.Your sinuses are located: Around your eyes. In the middle of your forehead. Behind your nose. In your cheekbones. Mucus normally drains out of your sinuses. When your nasal tissues become inflamed or swollen, mucus can become trapped or blocked. This allows bacteria, viruses, and fungi to grow, which leads to infection. Most infections of the sinuses are caused by a virus. Sinusitis can develop quickly. It can last for up to 4 weeks (acute) or for more than 12 weeks (chronic). Sinusitis often develops after a cold. What are the causes? This condition is caused by anything that creates swelling in the sinuses or stops mucus from draining. This includes: Allergies. Asthma. Infection from bacteria or viruses. Deformities or blockages in your nose or sinuses. Abnormal growths in the nose (nasal polyps). Pollutants, such as chemicals or irritants in the air. Infection from fungi (rare). What increases the risk? You are more likely to develop this condition if you: Have a weak body defense system (immune system). Do a lot of swimming or diving. Overuse nasal sprays. Smoke. What are the signs or symptoms? The main symptoms of this condition are pain and a feeling of pressure around the affected sinuses.Other symptoms include: Stuffy nose or congestion. Thick drainage from your nose. Swelling and warmth over the affected sinuses. Headache. Upper toothache. A cough that may get worse at night. Extra mucus that collects in the throat or the back of the nose (postnasal drip). Decreased sense of smell and taste. Fatigue. A fever. Sore throat. Bad breath. How is this diagnosed? This condition is diagnosed based on: Your symptoms. Your medical history. A physical exam. Tests to find out if your condition is acute or chronic. This may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 drinks sweetened with high- fructose corn syrup or sugar alcohols. High-calorie sports drinks. Fats and oils Butter. Cream sauces. Margarine. Salad oils. Plain salad dressings. Olives. Avocados. Mayonnaise. Sweets and desserts Sweet rolls, doughnuts, and sweet breads. Sugar-free desserts sweetened with sugar alcohols such asxylitol and sorbitol. Seasoning and other foods Honey. Hot sauce. [place] powder. Gravy. Cream-based or milk-based soups. Pancakes and waffles. Summary When you have diarrhea, the foods you eat and your eating habits are very important. Make sure you get at least 8 10 cups of fluid each day, or enough to keep your urine clear or pale yellow. Eat bland foods and gradually reintroduce healthy, nutrient-rich foods as tolerated, or as told by your health care provider. Avoid high-fiber, fried, greasy, or spicy foods. This information is not intended to replace advice given to you by your health care provider. Make sure you discuss any questions you have with your health care provider. Document Released: 05/09/2004 Document Revised: 06/10/2019 Document Reviewed: 02/14/2017 [employer] Patient Education 2020 [employer]. 11/14/2021 23:11:11 Diarrhea, Adult Diarrhea, Adult Diarrhea is frequent loose and watery bowel movements. Diarrhea can make you feel weak and cause you to become dehydrated. Dehydration can make you tired and thirsty, cause you to have a dry mouth, and decrease how often you urinate. Diarrhea typically lasts 2 3 days. However, it can last longer if it is a sign of something more serious. It is important to treat your diarrhea as told by your health care provider. Follow these instructions at home: Eating and drinking Follow these recommendations as told by your health care provider: Take an oral rehydration solution (ORS). This is an dpbj-ozo-cyilbbr medicine that helps return your body to its normal balance of nutrients and water. It is found at pharmacies and retail stores. Drink plenty of fluids, such as water, ice chips, diluted fruit juice, and low- calorie sports drinks. You can drink milk also, if desired. Avoid drinking fluids that contain a lot of sugar or caffeine, such as energy drinks, sports drinks, and soda. Eat bland, ayyp-gs-etmvfb foods in small amounts as you are able. These foods include bananas, applesauce, rice, lean meats, toast, and crackers. Avoid alcohol. Avoid spicy or fatty foods. Medicines Take icrd-rvj-pacjgyx and prescription medicines only as told by your health care provider. If you were prescribed an antibiotic medicine, take it as told by your health care provider. Do notstop using the antibiotic even if you start to feel better. General instructions Wash your hands often using soap and water. If soap and water are not available, use a hand solid waste technician. Others in the household should wash their hands as well. Hands should be washed: ?After using the toilet or changing a diaper. ?Before preparing, cooking, or serving food. ?While caring for a sick person or while visiting someone in a hospital. Drink enough fluid to keep your urine pale yellow. Rest at home while you recover. Watch your condition for any changes. Take a warm bath to relieve any burning or pain from frequent diarrhea episodes. Keep all follow-up visits as told by your health care provider. This is important. Contact a health care provider if: You have a fever. Your diarrhea gets worse. You have new symptoms. You cannot keep fluids down. You feel light-headed or dizzy. You have a headache. You have muscle cramps. Get help right away if: You have chest pain. You feel extremely weak or you faint. You have bloody or black stools or stools that look like tar. You have severe pain, cramping, or bloating in your abdomen. You have trouble breathing or you are breathing very quickly. Your heart is beating very quickly. Your skin feels cold and clammy. You feel confused. You have signs of dehydration, such as: ?Dark urine, very little urine, or no urine. ?Cracked lips. ?Dry mouth. ?Sunken eyes. ?Sleepiness. ?Weakness. Summary Diarrhea is frequent loose and watery bowel movements. Diarrhea can make you feel weak and cause you to become dehydrated. Drink enough fluids to keep your urine pale yellow. Make sure that you wash your hands after using the toilet. If soap and water are not available, usehand solid waste technician. Contact a health care provider if your diarrhea gets worse or you have new symptoms. Get help right away if you have signs of dehydration. This information is not intended to replace advice given to you by your health care provider. Make sure you discuss any questions you have with your health care provider. Document Released: 02/07/2003 Document Revised: 07/06/2019 Document Reviewed: 07/24/2018 [employer] Patient Education 2020 [employer]. Follow Up Care 11/14/2021 21:45:39 With:Wanda REARDON Address: [address] [place] [address] [address] [id number] [facility] (1) When:11/17/2021 Comments:Follow-up with your primary care provider in 3 to 5 days. If symptoms worsen, do not improve, or new symptoms arise please report back to emergency department for further evaluation. [facility] or your psychiatrist to reorder your dose of Zoloft. Bring in a stool samplewhen you complete it. [facility]09-14-2022 Evaluation + Plan noteExtracted from: Title:ED Note Author:Bret Baker PA-C te:11/14/21 Diarrhea (R19.7: Diarrhea, u nspecified) Orders: sertraline, 100 mg = 2 tab(s), Tab, Oral, Once, Stop date 11/14/21 22:45:00 EDT, STAT, Start date 11/14/21 22:45:00 EDT, 11/14/21 22:45:00 EDT Enteric Panel by PCR Influenza A&B Ag Rapid COVID Antigen ([facility]) Diagnostic Tests Pending * Enteric Panel by PCR 11/14/21 [facility]09-08-2022 Evaluation + Plan noteExtracted from: Title:ED Note Author:Edwin Jolley DO Date :11/08/21 Depression (F32.A: Depressio n, unspecified) Orders: Automated Diff CBC w/ Auto Diff Communication Order Comprehensive Metabolic Panel Consult to Mental Health Drug Screen Urine eGFR Ethanol Level [facility]09-08-2022 Hospital Discharge instructions Patient Education 11/08/2021 04:13:53 Living With Depression Living With Depression Everyone experiences occasional disappointment, sadness, and loss in their lives. When you are feeling down, blue, or sad for at least 2 weeks in a row, it may mean that you have depression. Depression can affect your thoughts and feelings, relationships, daily activities, and physical health. It is caused by changes in the way your brain functions. If you receive a diagnosis of depression, your health care provider will tell you which type of depression you have and what treatment options are available to you. If you are living with depression, there are ways to help you recover from it and also ways to prevent it from coming back. How to cope with lifestyle changes Coping with stress Stress is your body s reaction to life changes and events, both good and bad. Stressful situations may include: Getting . The of a spouse. Losing a job. Retiring. Having a baby. Stress can last just a few hours or it can be ongoing. Stress can play a major role in depression, so it is important to learn both how to cope with stress and how to think about it differently. Talk with your health care provider or a counselor if you would like to learn more about stress reduction. He or she may suggest some stress reduction techniques, such as: Music therapy. This can include creating music or listening to music. Choose music that you enjoy and that inspires you. Mindfulness-based meditation. This kind of meditation can be done while sitting or walking. It involves being aware of your normal breaths, rather than trying to control your breathing. Centering prayer. This is a kind of meditation that involves focusing on a spiritual word or phrase. Choose a word, phrase, or sacred image that is meaningful to you and that brings you peace. Deep breathing. To do this, expand your stomach and inhale slowly through your nose. Hold your breath for 3 5 seconds, then exhale slowly, allowing your stomach muscles to relax. Muscle relaxation. This involves intentionally tensing muscles then relaxing them. Choose a stress reduction technique that fits your lifestyle and personality. Stress reduction techniques take time and practice to develop. Set aside 5 15 minutes a day to do them. Therapists can offer training in these techniques. The training may be covered by some insurance plans. Other things you can do to manage stress include: Keeping a stress diary. This can help you learn what triggers your stress and ways to control your response. Understanding what your limits are and saying no to requests or events that lead to a schedule thatis too full. Thinking about how you respond to certain situations. You may not be able to control everything, but you can control how you react. Adding humor to your life by watching funny films or TV shows. Making time for activities that help you relax and not feeling guilty about spending your time thisway. Medicines Your health care provider may suggest certain medicines if he or she feels that they will help improve your condition. Avoid using alcohol and other substances that may prevent your medicines from working properly (may interact). It is also important to: Talk with your pharmacist or health care provider about all the medicines that you take, their possible side effects, and what medicines are safe to take together. Make it your goal to take part in all treatment decisions (shared decision- making). This includes giving input on the side effects of medicines. It is best if shared decision-making with your health care provider is part of your total treatment plan. If your health care provider prescribes a medicine, you may not notice the full benefits of it for 4 8 weeks. Most people who are treated for depression need to be on medicine for at least 6 12 months after they feel better. If you are taking medicines as part of your treatment, do not stop taking medicines without first talking to your health care provider. You may need to have the medicine slowly decreased (tapered) over time to decrease the risk of harmful side effects. Relationships Your health care provider may suggest family therapy along with individual therapy and drug therapy. While there may not be family problems that are causing you to feel depressed, it is still important to make sure your family learns as much as they can about your mental health. Having your family s support can help make your treatment successful. How to recognize changes in your condition Everyone has a different response to treatment for depression. Recovery from major depression happens when you have not had signs of major depression for two months. This may mean that you will startto: Have more interest in doing activities. Feel less hopeless than you did 2 months ago. Have more energy. Overeat less often, or have better or improving appetite. Have better concentration. Your health care provider will work with you to decide the next steps in your recovery. It is also important to recognize when your condition is getting worse. Watch for these signs: Having fatigue or low energy. Eating too much or too little. Sleeping too much or too little. Feeling restless, agitated, or hopeless. Having trouble concentrating or making decisions. Having unexplained physical complaints. Feeling irritable, angry, or aggressive. Get help as soon as you or your family members notice these symptoms coming back. How to get support and help from others How to talk with friends and family members about your condition Talking to friends and family members about your condition can provide you with one way to get support and guidance. Reach out to trusted friends or family members, explain your symptoms to them, andlet them know that you are working with a health care provider to treat your depression. Financial resources Not all insurance plans cover mental health care, so it is important to check with your insurance carrier. If paying for co-pays or counseling services is a problem, search for a [facility] mental health care center. They may be able to offer public mental health care services at low or no cost when you are not able to see a private health care provider. If you are taking medicine for depression, you may be able to get the generic form, which may be less expensive. Some makers of prescription medicines also offer help to patients who cannot afford the medicines they need. Follow these instructions at home: Get the right amount and quality of sleep. Cut down on using caffeine, tobacco, alcohol, and other potentially harmful substances. Try to exercise, such as walking or lifting small weights. Take tdlx-aze-azwlust and prescription medicines only as told by your health care provider. Eat a healthy diet that includes plenty of vegetables, fruits, whole grains, low-fat dairy products, and lean protein. Do not eat a lot of foods that are high in solid fats, added sugars, or salt. Keep all follow-up visits as told by your health care provider. This is important. Contact a health care provider if: You stop taking your antidepressant medicines, and you have any of these symptoms: ?Nausea. ?Headache. ?Feeling lightheaded. ?Chills and body aches. ?Not being able to sleep (insomnia). You or your friends and family think your depression is getting worse. Get help right away if: You have thoughts of hurting yourself or others. If you ever feel like you may hurt yourself or others, or have thoughts about taking your own life,get help right away. You can go to your nearest emergency department or call: Your local emergency services (911 in the [place] A suicide crisis helpline, such as the National Suicide Prevention Lifeline at . Thisis open 24-hours a day. Summary If you are living with depression, there are ways to help you recover from it and also ways to prevent it from coming back. Work with your health care team to create a management plan that includes counseling, stress management techniques, and healthy lifestyle habits. This information is not intended to replace advice given to you by your health care provider. Make sure you discuss any questions you have with your health care provider. Document Released: 01/20/2017 Document Revised: 06/11/2019 Document Reviewed: 01/20/2017 [employer] Patient Education 2020 [employer]. Follow Up Care 11/08/2021 02:16:41 With:[facility] Address:Unknown When:11/11/2021 Comments:Please follow up with [facility] for further evaluation and management. Please return the ED for any new or worsening symptoms. With:Armaan SLOAN Address: [address] [place], [place] [id number] Business (1) When:Within 3 Day(s) [facility]08-10-2022 Discharge summary Author Miguelangel Zhou [facility] October 10, 2021 11:03am Note Date/Time October 10, 2021 11 :01am [facility] [address] [place], [place] [id number] Discharge Summary Signed Patient: Rosangela Lindo MR#: [id number] : 1980 Acct:[id number] Age/Sex: 41 / F Adm Date: 2 Loc: Room: 3Z5439-[address]: Miguelangel Zhou MD Copies to: MD Armaan Barber,~ Providers Date of Discharge: 10/10/21 Discharging Provider: Miguelangel Zhou Primary Care Provider: Armaan Sloan Discharge Diagnosis (1) Major depressive disorder, recurrent: Final Diagnosis Final Discharge Diagnosis: Major depressive disorder Summary Hospital Course Hospital course: According to admission note: Ms. Lindo is a 41 year old female who presented due to concern for depression and suicidal ideation. Upon assessment, patient reported that she was doing okay after she left the hospital but felt things were declining.? She reported that she thought that no one cared about her and she felt very depressed.? She did admit to having some suicidal thoughts as well.? She thought things were going downhill and felt thatshe be better coming to the hospital to see if things can be managed.? She reported that she was taking her medications on discharge and was tolerating them okay.? She stated that she is not sure why she was feeling the way that shefelt and denied any acute stressor.? She reported that she feels like her familydoes not care about her but she has difficulty shaking the feeling of depressionand not feeling like anybody cares. Past psych history: Reported depression and anxiety Past hospitalizations: Reported to prior hospitalizations Past suicide attempts: Reported overdose on medications in 2019 Family psych history: None reported Previous medications: Zoloft, Trileptal Alcohol and drug use: Denied any significant issues Living: Plans on living with jed's family Employment: employed Patient was continued on Zoloft and Trileptal. Her dose of Zoloft was increasedduring hospitalization. She tolerated the medication without any problems and did not report any side effects. She had gradual improvement with her symptoms of depression. She was left in the common area laughing and watching TV. She did not exhibit any behavior concerning for suicidality. She did not have any conflict with peers or staff. On the day of discharge she reported she is feeling better. She was future oriented and excited to go back to work. She denied any depression, suicidality or hallucinations. Condition Condition at Discharge: Stable Status at Discharge Cognitive/behavioral status at discharge: Mental Status Exam: Appearance: grossly normal Mental Status: mental status grossly normal Mood: Euthymic mood Affect: Normal affect Speech and Movement: speech and movement normal and speech clear Attitude: cooperative Thought Process: normal Thought Content: Denied hallucinations, no homicidality and no suicidality Insight: Good Judgment: Good Functional status at discharge: independent ambulation Overall status at discharge: patient is back to baseline Time Spent with Patient Time spent providing/coordinating discharge services (# min): 30 Exam Physical Exam Vital Signs: Temp Pulse Resp BP Pulse Ox O2 Del Method 98.3 F 81 16 99/66 L 96 Room Air 10/10/21 07:30 10/10/21 07:30 10/10/21 07:30 10/10/21 07:30 10/10/21 07:30 10/10/21 07:30 Discharge Plan Discharge Plan Patient Disposition: Home Activity: No Activity Restriction Diet: Regular Stand Alone Forms: Work/School Release Form Prescriptions: New sertraline 50 mg Tablet 50 mg PO DAILY Qty: 30 0RF Rx Instructions: take with 100mg tablet Continued oxcarbazepine 150 mg tablet 150 mg PO DAILY Label Comments: TAKE 1 TABLET BY MOUTH EVERY MORNING oxcarbazepine 300 mg tablet 300 mg PO HS Label Comments: TAKE 1 TABLET BY MOUTH DAILY AT BEDTIME trazodone 50 mg tablet 50 mg PO QHS Label Comments: TAKE 1 TABLET BY MOUTH DAILY AT BEDTIME sertraline 100 mg tablet 100 mg PO DAILY cholecalciferol (vitamin D3) 125 mcg (5,000 unit) Capsule 125 mcg PO DAILY Qty: 30 0RF amoxicillin-pot clavulanate 875-125 mg tablet 1 tab PO BID Label Comments: take 1 tablet by mouth twice a day for 10 days Follow Up: [facility] [Outside] ( 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 (insert date/time here) Intake: (Insert date/time here) Please bring a copy of your photo ID, insurance card, and proof of household income.? Psychiatry: (Insert date/time here) Group: (Insert date/time here ) ) Documented By: Miguelangel Zhou MD 10/10/21 1059 Signed By: <Electronically signed by Miguelangel Zhou MD> 10/10/21 [address] [facility] Work Phone: 1(877) 872-828408-09-2022 Progress note Author Miguelangel Zhou [facility] October 09, 2021 1:29pm Note Date/Time October 09, 2021 1:2 9pm [facility] [address] [place] [address] Psychiatry Progress Note Signed Patient: Rosangela Lindo MR#: [id number] : 1980 Acct:[id number] Age/Sex: 41 / F Adm Date: 2 Loc: 1S Room: 7F2287-7 Type : ADM IN Attending Dr: Miguelangel Zhou MD Copies to: ~ Date of Service: 10/09/2021 Subjective Subjective Narrative: Ms. Lindo reported that she is feeling better. She expressed interest in returning to work. She stated that she seems happier and she has been focusing on using her coping skills and watching television. She tolerated her increase of dose of Zoloft Mental Status Exam: Appearance: grossly normal Mental Status: mental status grossly normal Mood: Improving mood Affect: Normal affect Speech and Movement: speech and movement normal and speech clear Attitude: cooperative Thought Process: normal Thought Content: Denied hallucinations, no homicidality, no suicidality Insight: fair Judgment: fair Exam Physical Exam Vital Signs: Temp Pulse Resp BP Pulse Ox O2 Del Method 97.8 F 84 18 109/76 95 Room Air 10/09/21 07:30 10/09/21 07:30 10/08/21 20:02 10/09/21 07:30 10/09/21 07:30 10/09/21 09:16 Assessment/Plan Assessment/Plan (1) Major depressive disorder, recurrent: Code(s): F33.9 - Major depressive disorder, recurrent, unspecified Status: Acute Plan Patient reported feeling better at this time. Denied current suicidal ideation Continue Trileptal, increase Zoloft to 150 mg Continue to monitor mental status Encourage group participation and medication compliance Risk benefits alternatives explained Documented By: Miguelangel Zhou MD 10/09/211327 Signed By: <Electronically signed by Miguelangel Zhou MD> 10/09/[address] [facility] Work Phone: 1(647) 757-788708-08-2022 History and physical note Author Miguelangel Zhou [facility] October 08, 2021 2:21pm Note Date/Time October 08, 2021 12: 17pm [facility] [address] [place] [address] Psychiatry H&P Signed Patient: Rosangela Lindo MR#: [id number] : 1980 Acct:[id number] Age/Sex: 41 / F Adm Date: 2 Loc: 1S Room: 0T6167-2 Type: ADM IN Attending Dr: Miguelangel Zhou MD Copies to: MD Armaan Barber Angelita YennyDO adair~ Date of Service: 10/08/2021 HPI History of Present Illness History of present illness: Ms. Lindo is a 41 year old female who presented due to concern for depression and suicidal ideation. Upon assessment, patient reported that she was doing okay after she left the hospital but felt things were declining. She reported that she thought that no one cared about her and she felt very depressed. She did admit to having some suicidal thoughts as well. She thought things were going downhill and felt thatshe be better coming to the hospital to see if things can be managed. She reported that she was taking her medications on discharge and was tolerating them okay. She stated that she is not sure why she was feeling the way that shefelt and denied any acute stressor. She reported that she feels like her familydoes not care about her but she has difficulty shaking the feeling of depressionand not feeling like anybody cares. Past psych history: Reported depression and anxiety Past hospitalizations: Reported to prior hospitalizations Past suicide attempts: Reported overdose on medications in 2019 Family psych history: None reported Previous medications: Zoloft, Trileptal Alcohol and drug use: Denied any significant issues Living: Plans on living with kanwal?'s family Employment: employed Review of symptoms: Constitutional: Denies chills and Denies fever(s) Eyes: Denies change in vision ENT: Denies abnormal hearing Cardiovascular: Denies chest pain Respiratory: Denies chest congestion and Denies cough Gastrointestinal: Denies change in bowel habits Genitourinary: Denies dysuria Musculoskeletal: Denies atrophy and Denies myalgias Integumentary/Breasts: Denies dry skin Neurologic: Denies abnormal gait and Denies abnormal movements Psychiatric: Reports depression and suicidal ideation Physical exam: Const: cooperative Nutritional Appearance: average body habitus Orientation: alert, awake and oriented x3 HEENT: Head normal to inspection, hearing grossly normal bilaterally, external nose normal, face symmetric Eyes: appearance normal, both eyes and all related structures, sclerae normal Neck: normal visual inspection and full ROM Resp: normal respiratory effort, able to speak in complete sentences and symmetric chest movement Cardio: regular rate GI: normal to inspection and non-distended : deferred Skin: no rashes or lesions noted Neuro: CNII: Visual oneil intact, CNIII,IV,: EOM intact, no nystagmus. Pupilsequal, round, reactive to light and accommodation, CNV: Sensation intact to light touch, CNVII: Raises eyebrows, smile/frown, puff out cheeks symmetrically, CNVIII: Hearing intact bilaterally, CNIX,X: Voice normal, soft palate elevation normal, symmetrical, CNXI: Shoulder shrug strong, equal bilaterally, CNXII: Tongue protrusion midline, movement symmetrical. Extrem: normal to inspection and full ROM Mental Status Exam: Appearance: grossly normal Mental Status: mental status grossly normal Mood: dysthymic mood Affect: dysphoric affect Speech and Movement: speech and movement normal and speech clear Attitude: cooperative Thought Process: normal Thought Content: Denied hallucinations, no homicidality, reported suicidality Insight: fair Judgment: fair PMFSH Vaccinated for COVID-19?: Unknown Medical History Anxiety and depression Surgical History History of orthopedic surgery Broken left arm as child Family History Other No significant family history Social History Smoking Status: Never smoker Substance Use Type: None Substance Abuse Comment: has not used Meds Medications and Allergies Allergies No Known Allergies Allergy (Verified 07/31/21 07:23) Home Medications oxcarbazepine 150 mg tablet 150 mg PO DAILY 08/15/21 [History Confirmed 09/21/21] oxcarbazepine 300 mg tablet 300 mg PO HS 08/15/21 [History Confirmed 09/21/21] sertraline 100 mg tablet 100 mg PO DAILY 09/21/21 [History Confirmed 09/21/21] trazodone 50 mg tablet 50 mg PO QHS 09/21/21 [History Confirmed 09/21/21] cholecalciferol (vitamin D3) 125 mcg (5,000 unit) capsule 125 mcg PO DAILY #30 caps 09/24/21 [Rx] amoxicillin 875 mg-potassium clavulanate 125 mg tablet 1 tab PO BID 10/08/21 [History Confirmed 10/08/21] Exam Physical Exam Vital Signs: Temp Pulse Resp BP Pulse Ox O2 Del Method 97.6 F 84 16 122/79 96 Room Air 10/08/21 08:00 10/08/21 08:00 10/08/21 07:30 10/08/21 08:00 10/08/21 08:00 10/08/21 08:00 Results Labs Psychiatry Labs: 10/08/21 06:09 Total Bilirubin 0.7 Direct Bilirubin < 0.1 Indirect Bilirubin TNP AST 17 ALT 19 Alkaline Phosphatase 61 Total Protein 6.0 L Albumin 3.1 L Assessment/Plan (1) Major depressive disorder, recurrent: Code(s): F33.9 - Major depressive disorder, recurrent, unspecified Status: Acute Plan Patient presenting due to concern for depression and suicidal ideation. Continue Trileptal, increase Zoloft to 150 mg Continue to monitor mental status Encourage group participation and medication compliance Risk benefits alternatives explained Documented By: Miguelangel Zhou MD 10/08/21 1215 Signed By: <Electronically signed by Miguelangel Zhou MD> 10/08/21 1427 [facility] Work Phone: [phone]) 864-830308-07-2022 Evaluation + Plan noteExtracted from: Title:ED Note Author:Edwin Jolley DO Date :10/07/21 Depression (F32.A: Depressio n, unspecified) Orders: Acetaminophen Level Automated Diff CBC w/ Auto Diff Communication Order Comprehensive Metabolic Panel Consult to Mental Health Drug Screen Urine ECG 12 Lead Adult eGFR Ethanol Level Rapid COVID Antigen ([facility]) Salicylate Level [facility]08-07-2022 Evaluation + Plan noteExtracted from: Title:ED Note Author:Bret Baker PA-C te:10/07/21 Ordered: Automated Diff Beta hCG Qual CBC w/ Auto Diff Communication Order Comprehensive Metabolic Panel Consult to Mental Health Drug Screen Urine ECG 12 Lead Adult eGFR Ethanol Level Extra Blue Tube Addendum by Amira Jolley DO on October 08, 2021 02:04:45 EDT Patient was evaluated by [facility] accepted to 1 S. Patient remained hemodynamically stable while in the emergency department. [facility]08-07-2022 Hospital Discharge instructions Patient Education 10/07/2021 01:54:34 Living With Depression Living With Depression Everyone experiences occasional disappointment, sadness, and loss in their lives. When you are feeling down, blue, or sad for at least 2 weeks in a row, it may mean that you have depression. Depression can affect your thoughts and feelings, relationships, daily activities, and physical health. It is caused by changes in the way your brain functions. If you receive a diagnosis of depression, your health care provider will tell you which type of depression you have and what treatment options are available to you. If you are living with depression, there are ways to help you recover from it and also ways to prevent it from coming back. How to cope with lifestyle changes Coping with stress Stress is your body s reaction to life changes and events, both good and bad. Stressful situations may include: Getting . The of a spouse. Losing a job. Retiring. Having a baby. Stress can last just a few hours or it can be ongoing. Stress can play a major role in depression, so it is important to learn both how to cope with stress and how to think about it differently. Talk with your health care provider or a counselor if you would like to learn more about stress reduction. He or she may suggest some stress reduction techniques, such as: Music therapy. This can include creating music or listening to music. Choose music that you enjoy and that inspires you. Mindfulness-based meditation. This kind of meditation can be done while sitting or walking. It involves being aware of your normal breaths, rather than trying to control your breathing. Centering prayer. This is a kind of meditation that involves focusing on a spiritual word or phrase. Choose a word, phrase, or sacred image that is meaningful to you and that brings you peace. Deep breathing. To do this, expand your stomach and inhale slowly through your nose. Hold your breath for 3 5 seconds, then exhale slowly, allowing your stomach muscles to relax. Muscle relaxation. This involves intentionally tensing muscles then relaxing them. Choose a stress reduction technique that fits your lifestyle and personality. Stress reduction techniques take time and practice to develop. Set aside 5 15 minutes a day to do them. Therapists can offer training in these techniques. The training may be covered by some insurance plans. Other things you can do to manage stress include: Keeping a stress diary. This can help you learn what triggers your stress and ways to control your response. Understanding what your limits are and saying no to requests or events that lead to a schedule thatis too full. Thinking about how you respond to certain situations. You may not be able to control everything, but you can control how you react. Adding humor to your life by watching funny films or TV shows. Making time for activities that help you relax and not feeling guilty about spending your time thisway. Medicines Your health care provider may suggest certain medicines if he or she feels that they will help improve your condition. Avoid using alcohol and other substances that may prevent your medicines from working properly (may interact). It is also important to: Talk with your pharmacist or health care provider about all the medicines that you take, their possible side effects, and what medicines are safe to take together. Make it your goal to take part in all treatment decisions (shared decision- making). This includes giving input on the side effects of medicines. It is best if shared decision-making with your health care provider is part of your total treatment plan. If your health care provider prescribes a medicine, you may not notice the full benefits of it for 4 8 weeks. Most people who are treated for depression need to be on medicine for at least 6 12 months after they feel better. If you are taking medicines as part of your treatment, do not stop taking medicines without first talking to your health care provider. You may need to have the medicine slowly decreased (tapered) over time to decrease the risk of harmful side effects. Relationships Your health care provider may suggest family therapy along with individual therapy and drug therapy. While there may not be family problems that are causing you to feel depressed, it is still important to make sure your family learns as much as they can about your mental health. Having your family s support can help make your treatment successful. How to recognize changes in your condition Everyone has a different response to treatment for depression. Recovery from major depression happens when you have not had signs of major depression for two months. This may mean that you will startto: Have more interest in doing activities. Feel less hopeless than you did 2 months ago. Have more energy. Overeat less often, or have better or improving appetite. Have better concentration. Your health care provider will work with you to decide the next steps in your recovery. It is also important to recognize when your condition is getting worse. Watch for these signs: Having fatigue or low energy. Eating too much or too little. Sleeping too much or too little. Feeling restless, agitated, or hopeless. Having trouble concentrating or making decisions. Having unexplained physical complaints. Feeling irritable, angry, or aggressive. Get help as soon as you or your family members notice these symptoms coming back. How to get support and help from others How to talk with friends and family members about your condition Talking to friends and family members about your condition can provide you with one way to get support and guidance. Reach out to trusted friends or family members, explain your symptoms to them, andlet them know that you are working with a health care provider to treat your depression. Financial resources Not all insurance plans cover mental health care, so it is important to check with your insurance carrier. If paying for co-pays or counseling services is a problem, search for a local [facility] center. They may be able to offer public mental health care services at low or no cost when you are not able to see a private health care provider. If you are taking medicine for depression, you may be able to get the generic form, which may be less expensive. Some makers of prescription medicines also offer help to patients who cannot afford the medicines they need. Follow these instructions at home: Get the right amount and quality of sleep. Cut down on using caffeine, tobacco, alcohol, and other potentially harmful substances. Try to exercise, such as walking or lifting small weights. Take hmtp-ajx-nfoovex and prescription medicines only as told by your health care provider. Eat a healthy diet that includes plenty of vegetables, fruits, whole grains, low-fat dairy products, and lean protein. Do not eat a lot of foods that are high in solid fats, added sugars, or salt. Keep all follow-up visits as told by your health care provider. This is important. Contact a health care provider if: You stop taking your antidepressant medicines, and you have any of these symptoms: ?Nausea. ?Headache. ?Feeling lightheaded. ?Chills and body aches. ?Not being able to sleep (insomnia). You or your friends and family think your depression is getting worse. Get help right away if: You have thoughts of hurting yourself or others. If you ever feel like you may hurt yourself or others, or have thoughts about taking your own life,get help right away. You can go to your nearest emergency department or call: Your local emergency services (911 in the [place] A suicide crisis helpline, such as the National Suicide Prevention Lifeline at . Thisis open 24-hours a day. Summary If you are living with depression, there are ways to help you recover from it and also ways to prevent it from coming back. Work with your health care team to create a management plan that includes counseling, stress management techniques, and healthy lifestyle habits. This information is not intended to replace advice given to you by your health care provider. Make sure you discuss any questions you have with your health care provider. Document Released: 01/20/2017 Document Revised: 06/11/2019 Document Reviewed: 01/20/2017 [employer] Patient Education 2020 [employer]. Follow Up Care 10/07/2021 00:36:21 With:[facility] Address:Unknown When:10/10/2021 Comments:Please follow-up with [facility] for further evaluation and management. Continue taking your medications as prescribed. With:Armaan SLOAN Address: [address] [place] [address] [facility] (1) When:10/10/2021 [facility]08-06-2022 Evaluation + Plan noteExtracted from: Title:ED Note Author:Edwin Jolley DO Date :10/06/21 Acute URI (J06.9: Acute uppe r respiratory infection, unspecified) Orders: Rapid COVID Antigen ([facility]) [facility]08-06-2022 Hospital Discharge instructions Patient Education 10/06/2021 04:23:34 Upper Respiratory Infection, Adult, Tqtv-tt-Hgmh Upper Respiratory Infection, Adult An upper respiratory infection (URI) affects the nose, throat, and upper air passages. URIs are caused by germs (viruses). The most common type of URI is often called the common cold. Medicines cannot cure URIs, but you can do things at home to relieve your symptoms. URIs usually get better within 7 10 days. Follow these instructions at home: Activity Rest as needed. If you have a fever, stay home from work or school until your fever is gone, or until your doctor says you may return to work or school. ?You should stay home until you cannot spread the infection anymore (you are not contagious). ?Your doctor may have you wear a face mask so you have less risk of spreading the infection. Relieving symptoms Gargle with a salt-water mixture 3 4 times a day or as needed. To make a salt- water mixture, completely dissolve 1 tsp of salt in 1 cup of warm water. Use a cool-mist humidifier to add moisture to the air. This can help you breathe more easily. Eating and drinking Drink enough fluid to keep your pee (urine) pale yellow. Eat soups and other clear broths. General instructions Take yfsi-pal-uhiixdj and prescription medicines only as told by your doctor. These include cold medicines, fever reducers, and cough suppressants. Do not use any products that contain nicotine or tobacco. These include cigarettes and e-cigarettes. If you need help quitting, ask your doctor. Avoid being where people are smoking (avoid secondhand smoke). Make sure you get regular shots and get the flu shot every year. Keep all follow-up visits as told by your doctor. This is important. How to avoid spreading infection to others Wash your hands often with soap and water. If you do not have soap and water, use hand solid waste technician. Avoid touching your mouth, face, eyes, or nose. Cough or sneeze into a tissue or your sleeve or elbow. Do not cough or sneeze into your hand or into the air. Contact a doctor if: You are getting worse, not better. You have any of these: ?A fever. ?Chills. ?Brown or red mucus in your nose. ?Yellow or brown fluid (discharge)coming from your nose. ?Pain in your face, especially when you bend forward. ?Swollen neck glands. ?Pain with swallowing. ?White areas in the back of your throat. Get help right away if: You have shortness of breath that gets worse. You have very bad or constant: ?Headache. ?Ear pain. ?Pain in your forehead, behind your eyes, and over your cheekbones (sinus pain). ?Chest pain. You have long-lasting (chronic) lung disease along with any of these: ?Wheezing. ?Long-lasting cough. ?Coughing up blood. ?A change in your usual mucus. You have a stiff neck. You have changes in your: ?Vision. ?Hearing. ?Thinking. ?Mood. Summary An upper respiratory infection (URI) is caused by a germ called a virus. The most common type of URI is often called the common cold. URIs usually get better within 7 10 days. Take jtiw-zug-cfwvxcg and prescription medicines only as told by your doctor. This information is not intended to replace advice given to you by your health care provider. Make sure you discuss any questions you have with your health care provider. Document Released: 08/05/2008 Document Revised: 02/25/2019 Document Reviewed: 10/10/2017 [employer] Patient Education 2020 [employer] Follow Up Care 10/06/2021 03:55:02 With:Armaan SLOAN Address: [address], [facility] [address] [place] [id number] [facility] (1) When:10/09/2021 Comments:If your test is positive you will receive a call. Please follow-up with your primary care doctor inthe next 2 to 3 days. Please return the ED for any new or worsening symptoms. [facility]08-04-2022 Hospital Discharge instructions Patient Education 10/04/2021 20:59:46 Hypokalemia Hypokalemia Hypokalemia means that the amount of potassium in the blood is lower than normal. Potassium is a chemical (electrolyte) that helps regulate the amount of fluid in the body. It also stimulates muscle tightening (contraction) and helps nerves work properly. Normally, most of the body's potassium is inside cells, and only a very small amount is in the blood. Because the amount in the blood is so small, minor changes to potassium levels in the blood can be life-threatening. What are the causes? This condition may be caused by: Antibiotic medicine. Diarrhea or vomiting. Taking too much of a medicine that helps you have a bowel movement (laxative)can cause diarrhea and lead to hypokalemia. Chronic kidney disease (CKD). Medicines that help the body get rid of excess fluid (diuretics). Eating disorders, such as bulimia. Low magnesium levels in the body. Sweating a lot. What are the signs or symptoms? Symptoms of this condition include: Weakness. Constipation. Fatigue. Muscle cramps. Mental confusion. Skipped heartbeats or irregular heartbeat (palpitations). Tingling or numbness. How is this diagnosed? This condition is diagnosed with a blood test. How is this treated? This condition may be treated by: Taking potassium supplements by mouth. Adjusting the medicines that you take. Eating more foods that contain a lot of potassium. If your potassium level is very low, you may need to get potassium through an IV and be monitored in the hospital. Follow these instructions at home: Take ikoz-eiz-prrfivn and prescription medicines only as told by your health care provider. This includes vitamins and supplements. Eat a healthy diet. A healthy diet includes fresh fruits and vegetables, whole grains, healthy fats, and lean proteins. If instructed, eat more foods that contain a lot of potassium. This includes: ?Nuts, such as peanuts and pistachios. ?Seeds, such as sunflower seeds and pumpkin seeds. ?Peas, lentils, and arango beans. ?Whole grain and bran cereals and breads. ?Fresh fruits and vegetables, such as apricots, avocado, bananas, cantaloupe, kiwi, oranges, tomatoes, asparagus, and potatoes. ?Spivey juice. ?Tomato juice. ?Red meats. ?Yogurt. Keep all follow-up visits as told by your health care provider. This is important. Contact a health care provider if you: Have weakness that gets worse. Feel your heart pounding or racing. Vomit. Have diarrhea. Have diabetes (diabetes mellitus) and you have trouble keeping your blood sugar (glucose) in your target range. Get help right away if you: Have chest pain. Have shortness of breath. Have vomiting or diarrhea that lasts for more than 2 days. Faint. Summary Hypokalemia means that the amount of potassium in the blood is lower than normal. This condition is diagnosed with a blood test. Hypokalemia may be treated by taking potassium supplements, adjusting the medicines that you take, or eating more foods that are high in potassium. If your potassium level is very low, you may need to get potassium through an IV and be monitored in the hospital. This information is not intended to replace advice given to you by your health care provider. Make sure you discuss any questions you have with your health care provider. Document Released: 02/17/2006 Document Revised: 09/30/2018 Document Reviewed: 09/30/2018 [employer] Patient Education 2020 [employer]. 10/04/2021 20:59:44 Stress, Adult Stress Stress is a normal reaction to life events. Stress is what you feel when life demands more than youare used to, or more than you think you can handle. Some stress can be useful, such as studying fora test or meeting a deadline at work. Stress that occurs too often or for too long can cause problems. It can affect your emotional health and interfere with relationships and normal daily activities. Too much stress can weaken your body's defense system (immune system) and increase your risk for physical illness. If you already have a medical problem, stress can make it worse. What are the causes? All sorts of life events can cause stress. An event that causes stress for one person may not be stressful for another person. Major life events, whether positive or negative, commonly cause stress. Examples include: Losing a job or starting a new job. Losing a loved one. Moving to a new town or home. Getting or . Having a baby. Getting injured or sick. Less obvious life events can also cause stress, especially if they occur day after day or in combination with each other. Examples include: Working long hours. Driving in traffic. Caring for children. Being in debt. Being in a difficult relationship. What are the signs or symptoms? Stress can cause emotional symptoms, including: Anxiety. This is feeling worried, afraid, on edge, overwhelmed, or out of control. Anger, including irritation or impatience. Depression. This is feeling sad, down, helpless, or guilty. Trouble focusing, remembering, or making decisions. Stress can cause physical symptoms, including: Aches and pains. These may affect your head, neck, back, stomach, or other areas of your body. Tight muscles or a clenched jaw. Low energy. Trouble sleeping. Stress can cause unhealthy behaviors, including: Eating to feel better (overeating) or skipping meals. Working too much or putting off tasks. Smoking, drinking alcohol, or using drugs to feel better. How is this diagnosed? Stress is diagnosed through an assessment by your health care provider. He or she may diagnose thiscondition based on: Your symptoms and any stressful life events. Your medical history. Tests to rule out other causes of your symptoms. Depending on your condition, your health care provider may refer you to a specialist for further evaluation. How is this treated? Stress management techniques are the recommended treatment for stress. Medicine is not typically recommended for the treatment of stress. Techniques to reduce your reaction to stressful life events include: Stress identification. Monitor yourself for symptoms of stress and identify what causes stress for you. These skills may help you to avoid or prepare for stressful events. Time management. Set your priorities, keep a calendar of events, and learn to say no. Taking these actions can help you avoid making too many commitments. Techniques for coping with stress include: Rethinking the problem. Try to think realistically about stressful events rather than ignoring themor overreacting. Try to find the positives in a stressful situation rather than focusing on the negatives. Exercise. Physical exercise can release both physical and emotional tension. The light is to find a form of exercise that you enjoy and do it regularly. Relaxation techniques. These relax the body and mind. The light is to find one or more that you enjoyand use the techniques regularly. Examples include: ?Meditation, deep breathing, or progressive relaxation techniques. ?Yoga or dina chi. ?Biofeedback, mindfulness techniques, or journaling. ?Listening to music, being out in nature, or participating in other hobbies. Practicing a healthy lifestyle. Eat a balanced diet, drink plenty of water, limit or avoid caffeine, and get plenty of sleep. Having a strong support network. Spend time with family, friends, or other people you enjoy being around. Express your feelings and talk things over with someone you trust. Counseling or talk therapy with a mental health professional may be helpful if you are having trouble managing stress on your own. Follow these instructions at home: Lifestyle Avoid drugs. Do not use any products that contain nicotine or tobacco, such as cigarettes, e- cigarettes, and chewing tobacco. If you need help quitting, ask your health care provider. Limit alcohol intake to no more than 1 drink a day for non women and 2 drinks a day for men. One drink equals 12 oz of beer, 5 oz of wine, or 1 oz of hard liquor Do not use alcohol or drugs to relax. Eat a balanced diet that includes fresh fruits and vegetables, whole grains, lean meats, fish, eggs, and beans, and low-fat dairy. Avoid processed foods and foods high in added fat, sugar, and salt. Exercise at least 30 minutes on 5 or more days each week. Get 7 8 hours of sleep each night. General instructions Practice stress management techniques as discussed with your health care provider. Drink enough fluid to keep your urine clear or pale yellow. Take yygn-tkk-ngrrhok and prescription medicines only as told by your health care provider. Keep all follow-up visits as told by your health care provider. This is important. Contact a health care provider if: Your symptoms get worse. You have new symptoms. You feel overwhelmed by your problems and can no longer manage them on your own. Get help right away if: You have thoughts of hurting yourself or others. If you ever feel like you may hurt yourself or others, or have thoughts about taking your own life,get help right away. You can go to your nearest emergency department or call: Your local emergency services (911 in the [place] A suicide crisis helpline, such as the National Suicide Prevention Lifeline at . Thisis open 24 hours a day. Summary Stress is a normal reaction to life events. It can cause problems if it happens too often or for too long. Practicing stress management techniques is the best way to treat stress. Counseling or talk therapy with a mental health professional may be helpful if you are having trouble managing stress on your own. This information is not intended to replace advice given to you by your health care provider. Make sure you discuss any questions you have with your health care provider. Document Released: 08/13/2001 Document Revised: 07/13/2019 Document Reviewed: 04/09/2017 [employer] Patient Education 2020 [employer]. Follow Up Care 10/04/2021 20:07:39 With:[facility] Address:Unknown When:10/07/2021 [facility]07-31-2022 Hospital Discharge instructions Patient Education 09/30/2021 18:57:46 Head Injury, Adult Head Injury, Adult There are many types of head injuries. Head injuries can be as minor as a bump, or they can be a serious medical issue. More severe head injuries include: A jarring injury to the brain (concussion). A bruise (contusion) of the brain. This means there is bleeding in the brain that can cause swelling. A cracked skull (skull fracture). Bleeding in the brain that collects, clots, and forms a bump (hematoma). After a head injury, most problems occur within the first 24 hours, but side effects may occur up to 7 10 days after the injury. It is important to watch your condition for any changes. You may need to be observed in the emergency department or urgent care, or you may be admitted to the hospital. What are the causes? There are many possible causes of a head injury. A serious head injury may be caused by a car accident, bicycle or motorcycle accidents, sports injuries, and falls. What are the symptoms? Symptoms of a head injury include a contusion, bump, or bleeding at the site of the injury. Other physical symptoms may include: Headache. Nausea or vomiting. Dizziness. Feeling tired. Being uncomfortable around bright lights or loud noises. Seizures. Trouble being awakened. Fainting. Mental or emotional symptoms may include: Irritability. Confusion and memory problems. Poor attention and concentration. Changes in eating or sleeping habits. Anxiety or depression. How is this diagnosed? This condition can usually be diagnosed based on your symptoms, a description of the injury, and a physical exam. You may also have imaging tests done, such as a CT scan or MRI. How is this treated? Treatment for this condition depends on the severity and type of injury you have. The main goal of treatment is to prevent complications and to allow the brain time to heal. Mild head injury If you have a mild head injury, you may be sent home and treatment may include: Observation. A responsible adult should stay with you for 24 hours after your injury and check on you often. Physical rest. Brain rest. Pain medicines. Severe head injury If you have a severe head injury, treatment may include: Close observation. This includes hospitalization with frequent physical exams. Medicines to relieve pain, prevent seizures, and decrease brain swelling. Breathing support. This may include using a ventilator. Treatments to manage the swelling inside the brain. Brain surgery. This may be needed to: ?Remove a blood clot. ?Stop the bleeding. ?Remove a part of the skull to allow room for the brain to swell. Follow these instructions at home: Activity Rest and avoid activities that are physically hard or tiring. Make sure you get enough sleep. Limit activities that require a lot of thought or attention, such as: ?Watching TV. ?Playing memory games and puzzles. ?Job-related work or homework. ?Working on the computer, using [employer], and texting. Avoid activities that could cause another head injury, such as playing sports, until your health care provider approves. Having another head injury, especially before the first one has healed, can bedangerous. Ask your health care provider when it is safe for you to return to your regular activities, including work or school. Ask your health care provider for a uayd-nk-aphq plan for gradually returning to activities. Ask your health care provider when you can drive, ride a bicycle, or use heavy machinery. Your ability to react may be slower after a brain injury. Do not do these activities if you are dizzy. Lifestyle Do not drink alcohol until your health care provider approves. Do not use drugs. Alcohol and certain drugs may slow your recovery and can put you at risk of further injury. If it is harder than usual to remember things, write them down. If you are easily distracted, try to do one thing at a time. Talk with family members or close friends when making important decisions. Tell your friends, family, a trusted colleague, and tar worker about your injury, symptoms, and restrictions. Have them watch for any new or worsening problems. General instructions Take rkcr-ytx-jpvjgtf and prescription medicines only as told by your health care provider. Have someone stay with you for 24 hours after your head injury. This person should watch you for any changes in your symptoms and be ready to seek medical help. Keep all follow-up visits as told by your health care provider. This is important. How is this prevented? Work on improving your balance and strength to avoid falls. Wear a seatbelt when you are in a moving vehicle. Wear a helmet when riding a bicycle, skiing, or doing any other sport or activity that has a risk of injury. If you drink alcohol: ?Limit how much you use to: ?0 1 drink a day for women. ?0 2 drinks a day for men. ?Be aware of how much alcohol is in your drink. In the [place] one drink equals one 12 oz bottle of beer (355 mL), one 5 oz glass of wine (148 mL), or one 1 oz glass of hard liquor (44 mL). Take safety measures in your home, such as: ?Removing clutter and tripping hazards from floors and stairways. ?Using grab bars in bathrooms and handrails by stairs. ?Placing non-slip mats on floors and in bathtubs. ?Improving lighting in dim areas. Get help right away if: You have: ?A severe headache that is not helped by medicine. ?Trouble walking or weakness in your arms and legs. ?Clear or bloody fluid coming from your nose or ears. ?Changes in your vision. ?A seizure. You lose your balance. You vomit. Your pupils change size. Your speech is slurred. Your dizziness gets worse. You faint. You are sleepier than normal and have trouble staying awake. Your symptoms get worse. These symptoms may represent a serious problem that is an emergency. Do not wait to see if the symptoms will go away. Get medical help right away. Call your local emergency services (911 in the [place] Do not drive yourself to the hospital. Summary Head injuries can be minor or they can be a serious medical issue requiring immediate attention. Treatment for this condition depends on the severity and type of injury you have. Ask your health care provider when it is safe for you to return to your regular activities, including work or school. Head injury prevention includes wearing a seat belt in a motor vehicle, using a helmet on a bicycle, limiting alcohol use, and taking safety measures in your home. This information is not intended to replace advice given to you by your health care provider. Make sure you discuss any questions you have with your health care provider. Document Released: 02/17/2006 Document Revised: 03/17/2019 Document Reviewed: 03/12/2019 [employer] Patient Education 2020 [employer] 09/30/2021 18:57:46 General Headache Without Cause General Headache Without Cause A headache is pain or discomfort felt around the head or neck area. The specific cause of a headache may not be found. There are many causes and types of headaches. A few common ones are: Tension headaches. Migraine headaches. Cluster headaches. Chronic daily headaches. Follow these instructions at home: Watch your condition for any changes. Let your health care provider know about them. Take these steps to help with your condition: Managing pain Take rvea-ang-ndzvjgo and prescription medicines only as told by your health care provider. Lie down in a dark, quiet room when you have a headache. If directed, put ice on your head and neck area: ?Put ice in a plastic bag. ?Place a towel between your skin and the bag. ?Leave the ice on for 20 minutes, 2 3 times per day. If directed, apply heat to the affected area. Use the heat source that your health care provider recommends, such as a moist heat pack or a heating pad. ?Place a towel between your skin and the heat source. ?Leave the heat on for 20 30 minutes. ?Remove the heat if your skin turns bright red. This is especially important if you are unable to feel pain, heat, or cold. You may have a greater risk of getting burned. Keep lights dim if bright lights bother you or make your headaches worse. Eating and drinking Eat meals on a regular schedule. If you drink alcohol: ?Limit how much you use to: ?0 1 drink a day for women. ? 0 2 drinks a day for men. ?Be aware of how much alcohol is in your drink. In the [place] one drink equals one 12 oz bottle of beer (355 mL), one 5 oz glass of wine (148 mL), or one 1 oz glass of hard liquor (44 mL). Stop drinking caffeine, or decrease the amount of caffeine you drink. General instructions Keep a headache journal to help find out what may trigger your headaches. For example, write down: ?What you eat and drink. ?How much sleep you get. ?Any change to your diet or medicines. Try massage or other relaxation techniques. Limit stress. Sit up straight, and do not tense your muscles. Do not use any products that contain nicotine or tobacco, such as cigarettes, e- cigarettes, and chewing tobacco. If you need help quitting, ask your health care provider. Exercise regularly as told by your health care provider. Sleep on a regular schedule. Get 7 9 hours of sleep each night, or the amount recommended by your health care provider. Keep all follow-up visits as told by your health care provider. This is important. Contact a health care provider if: Your symptoms are not helped by medicine. You have a headache that is different from the usual headache. You have nausea or you vomit. You have a fever. Get help right away if: Your headache becomes severe quickly. Your headache gets worse after moderate to intense physical activity. You have repeated vomiting. You have a stiff neck. You have a loss of vision. You have problems with speech. You have pain in the eye or ear. You have muscular weakness or loss of muscle control. You lose your balance or have trouble walking. You feel faint or pass out. You have confusion. You have a seizure. Summary A headache is pain or discomfort felt around the head or neck area. There are many causes and types of headaches. In some cases, the cause may not be found. Keep a headache journal to help find out what may trigger your headaches. Watch your condition for any changes. Let your health care provider know about them. Contact a health care provider if you have a headache that is different from the usual headache, orif your symptoms are not helped by medicine. Get help right away if your headache becomes severe, you vomit, you have a loss of vision, you loseyour balance, or you have a seizure. This information is not intended to replace advice given to you by your health care provider. Make sure you discuss any questions you have with your health care provider. Document Released: 02/17/2006 Document Revised: 09/07/2018 Document Reviewed: 09/07/2018 [employer] Patient Education [employer]. Follow Up Care 09/30/2021 15:55:57 With:Chandra Kaplan Address: [address] [place] [phone]- When:10/03/2021 18:51:47 Comments:Return to the emergency room if your headache gets worse or any new symptoms. [facility]07-31-2022 Evaluation + Plan noteExtracted from: Title:ED Note Author:Gildardo Jung Date:09/30/21 1. Headache (R51.9: Headache , unspecified) 2. Closed head injury (S09.90XA: Unspecified injury of head, initial encounter) Orders: acetaminophen, 650 mg = 2 tab(s), Tab, Oral, Once, Stop date 09/30/21 18:02:00 EDT, STAT, Start date 09/30/21 18:02:00 EDT, 09/30/21 18:02:[address] Head or Brain w/o Contrast [facility]07-25-2022 Discharge summary Author Scar garcia [facility] September 24, 2021 9:35am Note Date/Time September 24, 2021 9:34 am [facility] [address] [place] [id number] Discharge Summary Signed Patient: Rosangela Lindo MR#: [id number] : 1980 Acct:[id number] Age/Sex: 41 / F Adm Date: 2 Loc: 1S Room: [address] [place] [address]: Lisa Julian MD Copies to: MD Huma Dunham MD~ Providers Date of Discharge: 09/24/21 Discharging Provider: Lisa Julian Primary Care Provider: Huma Barone Discharge Diagnosis (1) Suicidal ideation: (2) Major depressive disorder, recurrent: Final Diagnosis Final Discharge Diagnosis: MDD Summary Hospital Course Hospital course: Ms. Lindo is a 41 year old female with a relevant past medical history of MDD and anxiety who is being admitted to [facility] from [place] due to suicidal ideations without a plan.? Apparently, she is here just to have her medications changed.? She says there have been some stressors in her life that have led her into more depression as of late including people from her 's family calling her names and making fun of her.? She said this has been going on for about the last 2 months. No history of previous suicidal attempts. Has a history of previous inpatient psychiatric admissions with the last one being August 2021.? She was here for thoughts of taking her own life. Routinely sees a psychiatrist.? Currently on Trileptal, Zoloft, and trazodone.? Says she has not taken the Trileptal in several weeks. No pertinent family history of any mental illnesses. Patient was personally seen by me on the day of the encounter.? I reviewed the history and performed the light elements of the assessment.? I formulated the planof care and confirmed this with the Resident as noted below Upon talking with her today, she claims? thoughts of suicidal ideations, but says she would never go through with them.? Very adamant about being here in order to get her medications changed.? She would like to start the Trileptal again because she has not taken in a while.? When asked why she stopped taking it, she said she started to feel better and did not think she needed it anymore.? Has continually taken the Zoloft.? No hallucinations.? No other acute complaints today. Patient rates her depression as a 5 out of 10 with 10 being the worst. The course of treatment: The patient was familiar with the mental health therapy services available whileon the unit and was encouraged to participate. Patient reported that she was feeling depressed after stopping her Trileptal. Psychotropic medications targeting depression and anxiety were started and she was provided supportive and reality oriented therapy. Her medication regimen was restarted. She felt that her symptoms have improved on the current medication regimen, and has been compliant with treatment, and reported no side effects. Her sleep and appetite were okay. She has been attending some groups and described them as useful building coping skills. The patient has denied any access to firearms or lethal weapons. She felt better than before coming to the hospital and feels hopeful regarding her future. She rated her depression 1/10 and anxiety 2/10, with 10 being the worst. She understands the importance of outpatient follow-up to ensure the stability of her symptoms. She denied suicidal or homicidal ideation and verbalized the intent to notify the staff if she has such thoughts. No suicidal or self-injurious behaviors occurred during inpatient treatment. Staff report that some of her behaviors could be in the context of attention seeking. She was given emotional support, counseled, and educated regarding theprognosis of her diagnosis. She expresses understanding and says she is betterafter learning coping skills and the medications prescribed in the inpatient unit. She was in a good place to return home and engage fully in her life. She said that she will go back to live with her . The patient stated that she was ready to go. She did not meet criteria for involuntary psychiatric hospitalization. Patient achieved maximum benefit from attending inpatient treatment and was suitable for outpatient follow up. I explained to the patient that her discharge from the hospital does not mean that her medical care ends here. She needs consistent outpatient follow-up, cognitive behavioral therapy, and treatment plan to be handled from this point on by out patient team. Discharge disposition: Home with . Coordinated via case management. Safe discharge Planning: With the cessation of all suicidal ideation, improvements in mood, and absence of any psychotic symptoms at the time of discharge, aftercare plans were solidified. She was able to formulate a believable Safety Plan. Discharge plans were discussed with the patient and the treatment team. All agreed with the discharge plan. On the day of discharge, she was evaluated and had no complaints. She denied any SI/HI. She agreed to follow up with outpatient treatment as arranged by case management. She had no complications during her stay. Suicide risk assessment: A thorough review of risk and protective factors was conducted. Discussed with the patient the following recommendations that would help reduce suicide which includes limiting the number of medications to a 14-day supply with one refill at the time of discharge to avoid potential overdose,consistent outpatient follow up preferably within seven days of release, involving family members in her care, and her desire to live. She reports [facility], good response to medication management and therapy, availability of local mental health services and willingness to follow up, lack of suicidal ideation, intent or plan, lack of impulsivity, agitation, or psychotic behavior. Pt is future- oriented and understands the importance of outpatient follow-up. Considering positive factors like family and duyen, lack of access to firearms, and desire to continue treatment makes suicide risk minimal. Given the chronicity of suicidality, we discussed measures to help her with long-term safety. The patient is not suicidal or psychotic now. To help decreaseher suicide risk, as best I can, I am referring her for outpatient treatment andCBT for long-term follow-up to have somewhere to go and someone to manage her assymptoms and stressors develop. This is the best way to keep her alive. So, we discussed a crisis plan for future suicidality: at the first sign of distress, she will call the hotline; if this is not sufficient, she will 911, then call family members or friends; ultimately, she will come to the ER. Safety: The patient is not acutely psychotic and is safe to continue treatment on an outpatient basis. The patient was made aware of the 23/09 emergency services of the crisis center. She was advised to call 911 or go to the nearest ER in case of a crisis ( (including having thoughts of harming herself or others). Risks (metabolic, EPS, the effect on heart), benefits, and alternatives for medications were discussed. She verbalized understanding. Her consent was obtained. She was advised not to drink alcohol while taking medications. I advised patientthat using drugs can increase risk of impulsiveness and making poor decisions. Continue supportive therapy with some CBT techniques. Psycho-education and compliance counseling were provided. She denies current and is aware to notify her psychiatrist if she becomes due to the risk of harm to the fetus. MSE: Orientation: Alert and oriented to person, place, and time. Appearance/Behavior: Fair grooming and hygiene, calm, cooperative, engaged in the interview. Good eye contact. Normal psychomotor activity. Speech: normal rate, rhythm, volume, and tone. Non pressured. Knowledge: Appropriate for age and level of education Mood: okay Affect: reactive, mood-congruent Thought process: linear, logical, and goal-oriented Thought content: No SI/HI. No AVH. No delusions. Does not appear to be responding to internal stimuli. Concentration: Grossly intact based on track during the interview Associations: No loosening of associations Memory: Able to recall recent and remote historical information Insight: Fair, able to appreciate current symptoms and need for outpatient treatment Judgment: fair, agreed to follow treatment recommendations, socially appropriate with interviewer and staff. Time spent discussing smoking cessation with patient: more than 10 minutes Condition Condition at Discharge: Fair Status at Discharge Functional status at discharge: independent ambulation Time Spent with Patient Time spent providing/coordinating discharge services (# min): 35 Exam Physical Exam Vital Signs: Temp Pulse Resp BP Pulse Ox O2 Del Method 98.6 F 76 16 97/62 L 95 Room Air 09/23/21 20:00 09/23/21 20:00 09/23/21 20:00 09/23/21 20:00 09/23/21 20:00 09/23/21 20:00 Discharge Plan Discharge Plan Patient Disposition: Home Prescriptions: No Action oxcarbazepine 150 mg tablet 150 mg PO DAILY Label Comments: TAKE 1 TABLET BY MOUTH EVERY MORNING oxcarbazepine 300 mg tablet 300 mg PO HS Label Comments: TAKE 1 TABLET BY MOUTH DAILY AT BEDTIME trazodone 50 mg tablet 50 mg PO QHS Label Comments: TAKE 1 TABLET BY MOUTH DAILY AT BEDTIME sertraline 100 mg tablet 100 mg PO DAILY [facility]] [facility] [Outside] Documented By: Scar Julian MD 2 87 Signed By: <Electronically signed by Scar Julian MD> 09/24/[address] [facility] Work Phone: 1(703) 322-217207-24-2022 Progress note Author Scar garcia [facility] September 23, 2021 9:25am Note Date/Time September 23, 2021 9:25 am [facility] [address] [place] [address] Psychiatry Progress Note Signed Patient: Rosangela Lindo MR#: [id number] : 1980 Acct:[id number] Age/Sex: 41 / F Adm Date: 2 Loc: Room: [address] [place] [address] Type : ADM IN Attending Dr: Lisa Julian MD Copies to: ~ Date of Service: 09/23/2021 Subjective Subjective Narrative: Ms. Lindo reports feeling better after adding Trileptal. She feels much bettercompared to admission. She rates her depression at 5 out of 10 with 10 being the worst. The patient denies current suicidal or homicidal ideation, and verbalized the intent to notify staff if she has such thoughts. The patient denies recent suicidal or self injurious behaviors. Mental status exam Mental status: Mental status grossly normal Mood: ok Affect: reactive affect Speech and movement: Speech movement slowed and speech clear Attitude: cooperative Thought process: Normal Thought content: Denies hallucinations, homicidality. No suicidality Insight: improving Judgment: improving Exam Physical Exam Vital Signs: Temp Pulse Resp BP Pulse Ox O2 Del Method 98.3 F 122 H 17 120/88 98 Room Air 09/23/21 07:30 09/23/21 07:30 09/23/21 07:30 09/23/21 07:30 09/23/21 07:30 09/23/21 07:30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 Employment: employed Review of symptoms: Constitutional: Denies chills and Denies fever(s) Eyes: Denies change in vision ENT: Denies abnormal hearing Cardiovascular: Denies chest pain Respiratory: Denies chest congestion and Denies cough Gastrointestinal: Denies change in bowel habits Genitourinary: Denies dysuria Musculoskeletal: Denies atrophy and Denies myalgias Integumentary/Breasts: Denies dry skin Neurologic: Denies abnormal gait and Denies abnormal movements Psychiatric: Reports depression and suicidal ideation Physical exam: Const: cooperative Nutritional Appearance: average body habitus Orientation: alert, awake and oriented x3 HEENT: Head normal to inspection, hearing grossly normal bilaterally, external nose normal, face symmetric Eyes: appearance normal, both eyes and all related structures, sclerae normal Neck: normal visual inspection and full ROM Resp: normal respiratory effort, able to speak in complete sentences and symmetric chest movement Cardio: regular rate GI: normal to inspection and non-distended : deferred Skin: no rashes or lesions noted Neuro: CNII: Visual oneil intact, CNIII,IV,: EOM intact, no nystagmus. Pupilsequal, round, reactive to light and accommodation, CNV: Sensation intact to light touch, CNVII: Raises eyebrows, smile/frown, puff out cheeks symmetrically, CNVIII: Hearing intact bilaterally, CNIX,X: Voice normal, soft palate elevation normal, symmetrical, CNXI: Shoulder shrug strong, equal bilaterally, CNXII: Tongue protrusion midline, movement symmetrical. Extrem: normal to inspection and full ROM Mental Status Exam: Appearance: grossly normal Mental Status: mental status grossly normal Mood: dysthymic mood Affect: dysphoric affect Speech and Movement: speech and movement normal and speech clear Attitude: cooperative Thought Process: normal Thought Content: Denied hallucinations, no homicidality, reported suicidality Insight: fair Judgment: fair PMFSH Vaccinated for COVID-19?: Yes Medical History Anxiety and depression Surgical History History of orthopedic surgery Broken left arm as child Family History Other No significant family history Social History Smoking Status: Never smoker Substance Use Type: None Substance Abuse Comment: has not used Meds Medications and Allergies Allergies No Known Allergies Allergy (Verified 07/31/21 07:23) Home Medications trazodone 50 mg tablet 50 mg PO QHS PRN 14 Days #14 tab 07/19/20 [Rx Confirmed 08/15/21] hydroxyzine pamoate 25 mg capsule (Vistaril) 25 mg PO TID PRN #30 cap 09/19/20 [Rx Confirmed 07/31/21] amoxicillin 875 mg-potassium clavulanate 125 mg tablet 1 tab PO BID 7 Days #14 tab 07/31/21 [Rx Confirmed 08/15/21] vkcezzbktgiumsi-gaokqfnutuiwdlv-GN 2 mg-30 mg-10 mg/5 mL oral syrup 5 ml PO TID PRN 08/15/21 [History Confirmed 08/15/21] buspirone 5 mg tablet mg 08/15/21 [History Confirmed 08/15/21] hydroxyzine HCl 50 mg tablet mg 08/15/21 [History] oxcarbazepine 150 mg tablet 150 mg PO DAILY.0730A 08/15/21 [History Confirmed 08/15/21] oxcarbazepine 300 mg tablet 300 mg PO HS 08/15/21 [History Confirmed 08/15/21] prednisone 20 mg tablet 40 mg PO DAILY 08/15/21 [History Confirmed 08/15/21] sertraline 100 mg tablet 100 mg PO DAILY 08/15/21 [History Confirmed 08/15/21] sertraline 50 mg tablet 50 mg PO DAILY 08/15/21 [History Confirmed 08/15/21] Exam Physical Exam Vital Signs: Temp Pulse Resp BP Pulse Ox 98.1 F 81 16 96/61 L 97 08/15/21 07:29 08/15/21 07:29 08/15/21 07:29 08/15/21 07:29 08/15/21 07:29 Assessment/Plan (1) Major depressive disorder, recurrent: Code(s): F33.9 - Major depressive disorder, recurrent, unspecified Status: Acute (2) Anxiety: Code(s): F41.9 - Anxiety disorder, unspecified Status: Acute Plan Patient presenting due to concern for depression and suicidal ideation Will restart Trileptal and increase Zoloft to 200 mg Continue to monitor mental status Encourage group participation and medication compliance Risk benefits alternatives explained Documented By: Miguelangel Zhou MD 08/15/21 1213 Signed By: <Electronically signed by Miguelangel Zhou MD> 08/15/[address] [facility] Work Phone: 1(512) 769-686206-07-2022 Hospital Discharge instructions Patient Education 08/07/2021 15:38:54 Upper Respiratory Infection, Adult Upper Respiratory Infection, Adult An upper respiratory infection (URI) is a common viral infection of the nose, throat, and upper airpassages that lead to the lungs. The most common type of URI is the common cold. URIs usually get better on their own, without medical treatment. What are the causes? A URI is caused by a virus. You may catch a virus by: Breathing in droplets from an infected person's cough or sneeze. Touching something that has been exposed to the virus (contaminated) and then touching your mouth, nose, or eyes. What increases the risk? You are more likely to get a URI if: You are very young or very old. It is eagle or winter. You have close contact with others, such as at a daycare, school, or health care facility. You smoke. You have long-term (chronic) heart or lung disease. You have a weakened disease-fighting (immune) system. You have nasal allergies or asthma. You are experiencing a lot of stress. You work in an area that has poor air circulation. You have poor nutrition. What are the signs or symptoms? A URI usually involves some of the following symptoms: Runny or stuffy (congested) nose. Sneezing. Cough. Sore throat. Headache. Fatigue. Fever. Loss of appetite. Pain in your forehead, behind your eyes, and over your cheekbones (sinus pain). Muscle aches. Redness or irritation of the eyes. Pressure in the ears or face. How is this diagnosed? This condition may be diagnosed based on your medical history and symptoms, and a physical exam. Your health care provider may use a cotton swab to take a mucus sample from your nose (nasal swab). This sample can be tested to determine what virus is causing the illness. How is this treated? URIs usually get better on their own within 7 10 days. You can take steps at home to relieve your symptoms. Medicines cannot cure URIs, but your health care provider may recommend certain medicines to help relieve symptoms, such as: Ofgi-eil-wxxjkbo cold medicines. Cough suppressants. Coughing is a type of defense against infection that helps to clear the respiratory system, so take these medicines only as recommended by your health care provider. Fever-reducing medicines. Follow these instructions at home: Activity Rest as needed. If you have a fever, stay home from work or school until your fever is gone or until your health care provider says you are no longer contagious. Your health care provider may have you wear a face mask to prevent your infection from spreading. Relieving symptoms Gargle with a salt-water mixture 3 4 times a day or as needed. To make a salt- water mixture, completely dissolve 1 tsp of salt in 1 cup of warm water. Use a cool-mist humidifier to add moisture to the air. This can help you breathe more easily. Eating and drinking Drink enough fluid to keep your urine pale yellow. Eat soups and other clear broths. General instructions Take czzz-okh-hdztfcs and prescription medicines only as told by your health care provider. These include cold medicines, fever reducers, and cough suppressants. Do not use any products that contain nicotine or tobacco, such as cigarettes and e-cigarettes. If you need help quitting, ask your health care provider. Stay away from secondhand smoke. Stay up to date on all immunizations, including the yearly (annual) flu vaccine. Keep all follow-up visits as told by your health care provider. This is important. How to prevent the spread of infection to others URIs can be passed from person to person (are contagious). To prevent the infection from spreading: ?Wash your hands often with soap and water. If soap and water are not available, use hand solid waste technician. ?Avoid touching your mouth, face, eyes, or nose. ?Cough or sneeze into a tissue or your sleeve or elbow instead of into your hand or into the air. Contact a health care provider if: You are getting worse instead of better. You have a fever or chills. Your mucus is brown or red. You have yellow or brown discharge coming from your nose. You have pain in your face, especially when you bend forward. You have swollen neck glands. You have pain while swallowing. You have white areas in the back of your throat. Get help right away if: You have shortness of breath that gets worse. You have severe or persistent: ?Headache. ?Ear pain. ?Sinus pain. ?Chest pain. You have chronic lung disease along with any of the following: ?Wheezing. ?Prolonged cough. ?Coughing up blood. ?A change in your usual mucus. You have a stiff neck. You have changes in your: ?Vision. ?Hearing. ?Thinking. ?Mood. Summary An upper respiratory infection (URI) is a common infection of the nose, throat, and upper air passages that lead to the lungs. A URI is caused by a virus. URIs usually get better on their own within 7 10 days. Medicines cannot cure URIs, but your health care provider may recommend certain medicines to help relieve symptoms. This information is not intended to replace advice given to you by your health care provider. Make sure you discuss any questions you have with your health care provider. Document Released: 08/13/2001 Document Revised: 02/25/2019 Document Reviewed: 10/03/2017 [employer] Patient Education 2020 [employer] Follow Up Care 08/07/2021 15:07:12 With:Chandra Kaplan Address: [address] [place] [address]- When:08/10/2021 15:24:26 [facility]06-07-2022 Evaluation + Plan noteExtracted from: Title:ED Note Author:David June PA-C te:08/07/21 Upper respiratory infection (J06.9: Acute upper respiratory infection, unspecified) Orders: Rapid COVID Antigen ([facility]) [facility]05-25-2022 Hospital Discharge instructions Patient Education 07/25/2021 14:45:13 Upper Respiratory Infection, Adult, Ltdu-an-Ceky Upper Respiratory Infection, Adult An upper respiratory infection (URI) affects the nose, throat, and upper air passages. URIs are caused by germs (viruses). The most common type of URI is often called the common cold. Medicines cannot cure URIs, but you can do things at home to relieve your symptoms. URIs usually get better within 7 10 days. Follow these instructions at home: Activity Rest as needed. If you have a fever, stay home from work or school until your fever is gone, or until your doctor says you may return to work or school. ?You should stay home until you cannot spread the infection anymore (you are not contagious). ?Your doctor may have you wear a face mask so you have less risk of spreading the infection. Relieving symptoms Gargle with a salt-water mixture 3 4 times a day or as needed. To make a salt- water mixture, completely dissolve 1 tsp of salt in 1 cup of warm water. Use a cool-mist humidifier to add moisture to the air. This can help you breathe more easily. Eating and drinking Drink enough fluid to keep your pee (urine) pale yellow. Eat soups and other clear broths. General instructions Take qcyg-eoi-jngirit and prescription medicines only as told by your doctor. These include cold medicines, fever reducers, and cough suppressants. Do not use any products that contain nicotine or tobacco. These include cigarettes and e-cigarettes. If you need help quitting, ask your doctor. Avoid being where people are smoking (avoid secondhand smoke). Make sure you get regular shots and get the flu shot every year. Keep all follow-up visits as told by your doctor. This is important. How to avoid spreading infection to others Wash your hands often with soap and water. If you do not have soap and water, use hand solid waste technician. Avoid touching your mouth, face, eyes, or nose. Cough or sneeze into a tissue or your sleeve or elbow. Do not cough or sneeze into your hand or into the air. Contact a doctor if: You are getting worse, not better. You have any of these: ?A fever. ?Chills. ?Brown or red mucus in your nose. ?Yellow or brown fluid (discharge)coming from your nose. ?Pain in your face, especially when you bend forward. ?Swollen neck glands. ?Pain with swallowing. ?White areas in the back of your throat. Get help right away if: You have shortness of breath that gets worse. You have very bad or constant: ?Headache. ?Ear pain. ?Pain in your forehead, behind your eyes, and over your cheekbones (sinus pain). ?Chest pain. You have long-lasting (chronic) lung disease along with any of these: ?Wheezing. ?Long-lasting cough. ?Coughing up blood. ?A change in your usual mucus. You have a stiff neck. You have changes in your: ?Vision. ?Hearing. ?Thinking. ?Mood. Summary An upper respiratory infection (URI) is caused by a germ called a virus. The most common type of URI is often called the common cold. URIs usually get better within 7 10 days. Take igwi-ufh-sxmcfkh and prescription medicines only as told by your doctor. This information is not intended to replace advice given to you by your health care provider. Make sure you discuss any questions you have with your health care provider. Document Released: 08/05/2008 Document Revised: 02/25/2019 Document Reviewed: 10/10/2017 [employer] Patient Education 2020 [employer]. Follow Up Care 07/25/2021 13:18:54 With:Chandra Kaplan Address: [address] [place] [address]- When:07/28/2021 14:19:41 Comments:Follow-up with your primary care provider in 3 to 5 days. Please take grsd-gyb-vkswdxi medications to do with your symptoms. You may take ibuprofen and Tylenol for any fevers. He tested COVID-negative and influenza A & B negative today. If symptoms worsen, do not prove, or new symptoms arise please report back to emergency room for further evaluation. [facility]05-25-2022 Evaluation + Plan noteExtracted from: Title:ED Note Author:Bret Baker PA-C te:07/25/21 Acute URI (J06.9: Acute uppe r respiratory infection, unspecified) Orders: Influenza A&B Ag Rapid COVID Antigen ([facility]) [facility]05-05-2022 Hospital Discharge instructions Patient Education 07/05/2021 00:12:17 Diarrhea, Adult Diarrhea, Adult Diarrhea is frequent loose and watery bowel movements. Diarrhea can make you feel weak and cause you to become dehydrated. Dehydration can make you tired and thirsty, cause you to have a dry mouth, and decrease how often you urinate. Diarrhea typically lasts 2 3 days. However, it can last longer if it is a sign of something more serious. It is important to treat your diarrhea as told by your health care provider. Follow these instructions at home: Eating and drinking Follow these recommendations as told by your health care provider: Take an oral rehydration solution (ORS). This is an gzsi-det-xfpmhsk medicine that helps return your body to its normal balance of nutrients and water. It is found at pharmacies and retail stores. Drink plenty of fluids, such as water, ice chips, diluted fruit juice, and low- calorie sports drinks. You can drink milk also, if desired. Avoid drinking fluids that contain a lot of sugar or caffeine, such as energy drinks, sports drinks, and soda. Eat bland, wzoa-lo-vztvvn foods in small amounts as you are able. These foods include bananas, applesauce, rice, lean meats, toast, and crackers. Avoid alcohol. Avoid spicy or fatty foods. Medicines Take xjfv-uut-rmiephj and prescription medicines only as told by your health care provider. If you were prescribed an antibiotic medicine, take it as told by your health care provider. Do notstop using the antibiotic even if you start to feel better. General instructions Wash your hands often using soap and water. If soap and water are not available, use a hand solid waste technician. Others in the household should wash their hands as well. Hands should be washed: ?After using the toilet or changing a diaper. ?Before preparing, cooking, or serving food. ?While caring for a sick person or while visiting someone in a hospital. Drink enough fluid to keep your urine pale yellow. Rest at home while you recover. Watch your condition for any changes. Take a warm bath to relieve any burning or pain from frequent diarrhea episodes. Keep all follow-up visits as told by your health care provider. This is important. Contact a health care provider if: You have a fever. Your diarrhea gets worse. You have new symptoms. You cannot keep fluids down. You feel light-headed or dizzy. You have a headache. You have muscle cramps. Get help right away if: You have chest pain. You feel extremely weak or you faint. You have bloody or black stools or stools that look like tar. You have severe pain, cramping, or bloating in your abdomen. You have trouble breathing or you are breathing very quickly. Your heart is beating very quickly. Your skin feels cold and clammy. You feel confused. You have signs of dehydration, such as: ?Dark urine, very little urine, or no urine. ?Cracked lips. ?Dry mouth. ?Sunken eyes. ?Sleepiness. ?Weakness. Summary Diarrhea is frequent loose and watery bowel movements. Diarrhea can make you feel weak and cause you to become dehydrated. Drink enough fluids to keep your urine pale yellow. Make sure that you wash your hands after using the toilet. If soap and water are not available, usehand solid waste technician. Contact a health care provider if your diarrhea gets worse or you have new symptoms. Get help right away if you have signs of dehydration. This information is not intended to replace advice given to you by your health care provider. Make sure you discuss any questions you have with your health care provider. Document Released: 02/07/2003 Document Revised: 07/06/2019 Document Reviewed: 07/24/2018 [employer] Patient Education 2020 [employer]. Follow Up Care 07/04/2021 23:18:04 With:SHAN RIVAS Address: [address] [place] [phone] Business (1) When:07/10/2021 only if needed [facility]05-04-2022 Evaluation + Plan noteExtracted from: Title:ED Note Author:Ishmael Fernandez DO Date :07/04/21 Diarrhea (R19.7: Diarrhea, u nspecified) Nasal congestion (R09.81: Nasal congestion) Orders: ondansetron, 4 mg = 1 tab(s), Oral, q8hr, # 12 tab(s), Refills(s) 0, Pharmacy: [facility] #[id number], 157, cm, 07/04/21 23:26:00 EDT, Height/Length Dosing, 61, kg, 07/04/21 23:26:00 EDT, Weight Dosing Influenza A&B Ag Rapid COVID Antigen ([facility]) [facility]01-02-2020 History of Present illness Narrative* Irma Pat, DIANA - 03/04/2019 9:31 AM EST Provisional Diagnosis: Major depressive disorder, recurrent Risk, Psychosocial and Contextual Factors: Pt states her friends 'turned their back on me' and pt feels 'lonely and depressed'. Current Treatment: [facility] in [place] and [facility] Present Suicidal Behavior: Verbal: Yes, plan to overdose with intent Attempt: Self-aborted, pt states she held approximately six Vitamin B12 pills in her hand with the intention to overdose, however, pt states she returned them to the bottle. Access to Weapons: Denied Current Suicide Risk: Low, Moderate or High: High Past Suicidal Behavior: Verbal: Yes Attempt: Denies Self-Injurious/Self-Mutilation: Denies Traumatic Event Within Past 2 Weeks: Yes Legal: Denies Violence: Denies Protective Factors: Access to others and connection to providers Housing: Lives with her boyfriend Clinical Summary: Patient is a 38 year old female who presents to the ED voluntarily. Pt has a history of inpatient admissions and a special case plan. Pt was recently admitted to from 10/01/18-10/03/18. Pt states her friends 'turned their back on me' and pt feels 'lonely and depressed'. Pt reports suicidal thoughts for awhile, however, reports they have been worsening. Pt reports a self-aborted suicide attempt today. Pt states she held approximately six Vitamin B12 pills in her hand with the intention to overdose, however, pt states she returned them to the bottle. Pt states she is still suicidal and does not feel safe at home. Pt appears disheveled. Pt endorsed feeling depressed, trouble sleeping, poor appet ite, and etc. Patient reports receiving outpatient services from [facility] 'once in awhile'. Pt reports present compliance with her medications. Homicidal thoughts and/or plans denied. No delusions noted. Hallucinations denied. AOD denied. Legal issues denied. Violence denied. Level of Care Disposition: [address] Thorpe who states he will contact [facility] back. [address] Thorpe who states he will contact [facility] back. [address] Thorpe. Pt to be discharged and follow-up outpatient with her services. Dr. Thorpe states he will not admit the patient to . Dr. Thorpe states he is willing to see the patient in the ED if the provider does not feel comfortable discharging the patient. 1130 Clinician discussed outcome with patient. Pt states she is not in agreement and does not feel safe.Clinician informed patient that she has a special services case plan and will not be admitted. 1137 Comment on track board (ED) left for provider with recommendation due to provider being unavailable. 1222 ED provider notified of disposition. He states he will discharge the patient. [facility] discharge summary Author Miguelangel Zhou [facility] October 27, 2022 11:23am Note Date/Time October 27, 2022 11 :20[facility] ENTER [address] [place] [address] Discharge Summary Signed Patient: Rosangela Lindo MR#: [id number] : 1980 Acct:[id number] Age/Sex: 42 / F Adm Date: 3 Loc: 1S Room: 9P0842-[address]: Miguelangel Zhou MD Copies to: Miguelangel Zhou MD NO FAMILY PHYSICIAN~ Providers Date of Discharge: 10/27/22 Discharging Provider: Miguelangel Zhou Primary Care Provider: PHYSICIAN NO FAMILY Consults: 10/25/22 10:35 Consult to Case Management Routine Discharge Diagnosis (1) Major depressive disorder, recurrent: Final Diagnosis Final Discharge Diagnosis: Major depressive disorder Summary Hospital Course Hospital course: According to admission note: Ms. Lindo is a 42 year old female who presented due to concern for depression with suicidal ideation with plans of overdosing. Upon assessment, patient reported that she has been feeling depressed.? She stated that she had thoughts of wanting to overdose.? She reported that she toldher .? She stated that she has been struggling with her anxiety and depression.? She reported that she sometimes forgets to take her nighttime medications.? She stated that this may be contributing to how she is feeling.? She reported some issues with anhedonia and feelings of hopelessness.? She also continues to report suicidal thoughts.? She stated that she does like her medications and feels like they are somewhat helpful. Past psych history: Reported depression and anxiety Past hospitalizations: Reported to prior hospitalizations Past suicide attempts: Reported overdose on medications in 2019 Family psych history: None reported Previous medications: Zoloft, Trileptal Alcohol and drug use: Denied any significant issues Living: Plans on living with firicco?'s family Employment: employed Patient was restarted on her home medications. Abilify was continued and she was transition to a long-acting injectable. She tolerated the medication without any problems and did not report any side effects. Some of her medications were discontinued as she was on multiple antipsychotic medication. She did not exhibit any further behavior concerning for suicidality. She did not report any further suicidality. She seemed to be in better spirits and her mood gradually improved. She did not appear internally stimulated or manic during hospitalization. She attended occasional groups and seemed to show improvement as time went on. On the day of discharge, she reported that she wasfeeling better. She denied any depression or suicidality. She was comfortable with discharge plan home and following up with outpatient services. Condition Condition at Discharge: Stable Status at Discharge Cognitive/behavioral status at discharge: Mental Status Exam: Appearance: grossly normal Mental Status: mental status grossly normal Mood: Euthymic mood Affect: Normal affect Speech and Movement: speech and movement normal and speech clear Attitude: cooperative Thought Process: normal Thought Content: Denied hallucinations, no homicidality and no suicidality Insight: Good Judgment: Good Functional status at discharge: independent ambulation Overall status at discharge: patient is back to baseline Time Spent with Patient Time spent providing/coordinating discharge services (# min): 30 Exam Physical Exam Vital Signs: Temp Pulse Resp BP Pulse Ox O2 Del Method 97.9 F 86 18 127/89 94 L Room Air 10/27/22 07:30 10/27/22 07:30 10/27/22 07:30 10/27/22 07:30 10/27/22 07:30 10/27/22 07:30 Discharge Plan Discharge Plan Patient Disposition: Home Activity: No Activity Restriction Diet: Regular Additional Instructions: Regular Diet No Activity Restrictions You are due for your next Abilify injection around 11/22/2022. She received her first injection on 10/25/2022 Continue oral Abilify 10 mg for 13 more days then stop Instructions: Depression, Adult (DC), [facility] [place] Instructions Prescriptions: New Abilify Maintena 400 mg Suspension,Extended Rel Syring 400 mg IM Q28D Qty: 1 0RF Rx Instructions: Due on or about 11/22/2022 nicotine (polacrilex) 2 mg Gum 2 mg buccal Q2H PRN (Reason: Nicotine Cravings) Qty: 30 0RF aripiprazole 10 mg Tablet 10 mg PO DAILY Qty: 0 0RF Continued quetiapine 25 mg Tablet 25 mg PO QHS sertraline [Zoloft] 100 mg Tablet 100 mg PO DAILY oxcarbazepine [Trileptal] 150 mg Tablet 150 mg PO DAILY oxcarbazepine [Trileptal] 300 mg Tablet 300 mg PO HS Discontinued aripiprazole 15 mg tablet 15 mg PO DAILY Patient Comments: TAKE 1 TABLET BY MOUTH EVERY DAY FOR 7 DAYS *FOR DAYS 22-28* lurasidone 60 mg Tablet 60 mg PO QPM Rx Instructions: must administer with food (at least 350 calories) Follow Up: Dr. Shan Rivas [Other] (Call your primary provider with any medical needs. ) [facility] Hotline [Outside] [facility] [Outside] (Please call [facility] on Friday to make a follow up appointment.) Documented By: Miguelangel Zhou MD 10/27/22 1119 Signed By: <Electronically signed by Miguelangel Zhou MD> 10/27/[address] [facility] Work Phone: evaluation note* Diagnosis Acute sinusitis, recurrence not specified, unspecified location- Primary documented in this encounter [employer] Work Phone: [email or web address] note* Diagnosis Suicidal ideation- Primary documented in this encounter [employer] Phone: [email or web address] note* Diagnosis Acute non-recurrent maxillary sinusitis- Primary documented in this encounter [employer] Work Phone: [email or web address] note* Diagnosis Diarrhea, unspecified type- Primary Nonintractable episodic headache, unspecified headache type documented in this encounter [employer] Work Phone: [email or web address] noteNo assessment information available [facility] Work Phone: evaluation note* Diagnosis Onset Date Resolution Status Anxiety acute Major depressive disorder, recurrent acute [facility] Work Phone: evaluation note* Diagnosis Onset Date Resolution Status Anxiety acute Major depressive disorder, recurrent acute Major depressive disorder, recurrent acute Suicidal ideation acute Major depressive disorder, recurrent acute [facility] Work Phone: evaluation note* Diagnosis Anxiety attack- Primary Panic disorder without agoraphobia Other depression documented in this encounter [employer] Phone: [email or web address] note* Diagnosis Suicidal ideation- Primary documented in this encounter [employer] Phone: [email or web address] note* Diagnosis Depression with suicidal ideation- Primary documented in this encounter [employer] Phone: evaluation note* Diagnosis Lightheadedness- Primary Dizziness and giddiness Anemia, unspecified type documented in this encounter [employer] Phone: evaluation note* Diagnosis Anxiety state- Primary Anxiety state, unspecified documented in this encounter [employer] Work Phone: evaluation note* Diagnosis Acute recurrent maxillary sinusitis- Primary Acute maxillary sinusitis Chest wall pain Painful respiration documented in this encounter [employer] Work Phone: evaluation note* Diagnosis Traumatic ecchymosis of buttock, initial encounter- Primary documented in this encounter [employer] Phone: evaluation note* Diagnosis Dizziness- Primary Dizziness and giddiness documented in this encounter [employer] Phone: evaluation note* Diagnosis Dizziness- Primary Dizziness and giddiness documented in this encounter [employer] Phone: evaluation note* Diagnosis Dizziness- Primary Dizziness and giddiness documented in this encounter [employer] note* Diagnosis Lightheadedness- Primary Dizziness and giddiness documented in this encounter [employer] note* Diagnosis Bilateral acute serous otitis media, recurrence not specified- Primary Acute recurrent pansinusitis Other acute sinusitis documented in this encounter [facility] note* Diagnosis Right wrist pain- Primary Pain in joint, forearm History of anxiety Personal history of other mental disorder documented in this encounter [employer] note* Diagnosis Onset Date Resolution Status Major depressive disorder, recurrent acute [facility] Work Phone: Evaluation note* Diagnosis Chronic pain of right wrist- Primary documented in this encounter [employer] note* Diagnosis Swelling of both ankles- Primary Swelling of limb documented in this encounter [facility] note* Diagnosis URI with cough and congestion documented in this encounter [facility] Work Phone: History general Narrative - Reported* Type Description Date Medical History chronic depression Surgical History [facility] [employer] Other Hospital course Narrative No data available for [facility]* Attachments The following attachments cannot be sent through Care Everywhere. * Sinusitis (Luxembourger) * Sinus Rinse (Luxembourger) documented in this [facility] Phone: Hospital Discharge instructions* Attachments The following attachments cannot be sent through Care Everywhere. * Suicidal Thoughts (Luxembourger) * Suicidal Thoughts: Family Member (Luxembourger) documented in this [facility] Phone: Hospital Discharge instructions* Attachments The following attachments cannot be sent through Care Everywhere. * Sinusitis (Luxembourger) * Sinus Rinse (Luxembourger) [facility]: Hospital Discharge instructions* Instructions* Betsy Yin RN - 08/06/2021 Images from the original note were not included. Diarrhea During Cancer Treatment: Care Instructions Your Care Instructions Diarrhea is a common problem for people getting cancer treatment. Diarrhea can be caused by: Some medicines that damage the lining of your intestines. Radiation therapy aimed at your belly or pelvis. Surgery to remove part of your intestines. A side effect of bone marrow transplants called izaor-rxpqom-iejl disease. Some infections that affect your bowels. Severe constipation. Sometimes when you get really constipated, watery stool is the only stool thatcan get past the hardened stool. Some types of cancer, such as colon cancer, can cause diarrhea directly. Plus,the stress of having cancer can lead to diarrhea. Diarrhea from cancer treatment may be just a minor problem or a sign of more serious problems. Always tell your doctor if you have diarrhea, especially if you see blood in it. Changes in your diet may solve the problem. Your doctormay prescribe medicine if your diarrhea is severe. Follow-up care is a light part of your treatment and safety. Be sure to make and go to all appointments, and call your doctor if you are having problems. It's also a good idea to know your test resultsand keep alist of the medicines you take. How can you care for yourself at home? Before you take any type of qxwr-btu-bbzphtx medicine, tell your doctor that you are having diarrhea. If your doctor prescribes diarrhea medicines, take them exactly as directed. Call your doctor if you have any problems with your medicine. Drink plenty of room-temperature fluids to prevent dehydration. Take frequent sips of water and other clear liquids until you feel better. When you feel like eating, start with small amounts of food. Rest when you feel tired. When should you call for help? Call 911 anytime you think you may need emergency care. For example, call if: You passed out (lost consciousness). You pass maroon or very bloody stools. Call your doctor now or seek immediate medical care if: You are vomiting. You have new or worse belly pain. You have a fever. You cannot pass stools or gas. You have new or more blood in your stools. Watch closely for changes in your health, and be sure to contact your doctor if: You have new or worse symptoms. You are losing weight. You do not get better as expected. Where can you learn more? Go to [email or web address] and sign in to your [employer] account. Enter K800 in the Search Health Information box to learn more about Diarrhea During Cancer Treatment: Care Instructions. If you do not have an account, please click on the Sign Up Now link. Current as of: November 08, 2020 Content Version: 13.2 [employer]. Care instructions adapted under license by [employer]. If you have questions about a medical condition or this instruction, always ask your healthcare professional. [employer] disclaims any warranty or liability for your use of this information. Diarrhea: Care Instructions Overview Diarrhea is loose, watery stools (bowel movements). The exact cause is often hard to find. Sometimes diarrhea is your body's way of getting rid of what caused an upset stomach. Viruses, food poisoning, and many medicines can cause diarrhea. Some people get diarrhea in response to emotional stress, anxiety, orcertain foods. Almost everyone has diarrhea now and then. It usually isn't serious, and your stools will return tonormal soon. The important thing to do is replace thefluids you have lost, so you can prevent dehydration. The doctor has checked you carefully, but problems can develop later. If you notice any problems ornew symptoms, get medical treatment right away. Follow-up care is a light part of your treatment and safety. Be sure to make and go to all appointments, and call your doctor if you are having problems. It's also a good idea to know your test resultsand keep alist of the medicines you take. How can you care for yourself at home? Watch for signs of dehydration, which means your body has lost too much water. Dehydration is a serious condition and should be treated right away. Signs of dehydration are: ? Increasing thirst and dry eyes and mouth. ? Feeling faint or lightheaded. ? A smaller amount of urine than normal. To prevent dehydration, drink plenty of fluids. Choose water and other clear liquids until you feelbetter. If you have kidney, heart, or liver disease and have to limit fluids, talk with your doctorbefore you increase the amount of fluids you drink. When you feel like eating, start with small amounts of food. The doctor may recommend that you take jcvh-dya-gsgljnv medicine, such as loperamide (Imodium). Read and follow all instructions on the label. Do not use this medicine if you have bloody diarrhea, a high fever, or other signs of serious illness. Call your doctor if you think you are having a problem with your medicine. When should you call for help? Call 911 anytime you think you may need emergency care. For example, call if: You passed out (lost consciousness). Your stools are maroon or very bloody. Call your doctor now or seek immediate medical care if: You are dizzy or lightheaded, or you feel like you may faint. Your stools are black and look like tar, or they have streaks of blood. You have new or worse belly pain. You have symptoms of dehydration, such as: ? Dry eyes and a dry mouth. ? Passing only a little urine. ? Cannot keep fluids down. You have a new or higher fever. Watch closely for changes in your health, and be sure to contact your doctor if: Your diarrhea is getting worse. You see pus in the diarrhea. You are not getting better after 2 days (48 hours). Where can you learn more? Go to https://[email or web address] and sign in to your [employer] account. Enter W335 in the Search Health Information box to learn more about Diarrhea: Care Instructions. If you do not have an account, please click on the Sign Up Now link. Current as of: August 31, 2020 Content Version: 13. [employer]. Care instructions adapted under license by [employer]gram. If you have questions about a medical condition or this instruction, always ask your healthcare professional. [employer] disclaims any warranty or liability for your use of this information. Headache: Care Instructions Your Care Instructions Headaches have many possible causes. Most headaches aren't a sign of a more serious problem, and they will get better on their own. Home treatment may helpyou feel better faster. The doctor has checked you carefully, but problems can develop later. If you notice any problems ornew symptoms, get medical treatment right away. Follow-up care is a light part of your treatment and safety. Be sure to make and go to all appointments, and call your doctor if you are having problems. It's also a good idea to know your test resultsand keep alist of the medicines you take. How can you care for yourself at home? Do not drive if you have taken a prescription pain medicine. Rest in a quiet, dark room until your headache is gone. Close your eyes and try to relax or go to sleep. Don't watch TV or read. Put a cold, moist cloth or cold pack on the painful area for 10 to 20 minutes at a time. Put a thincloth between the cold pack and your skin. Use a warm, moist towel or a heating pad set on low to relax tight shoulder and neck muscles. Have someone gently massage your neck and shoulders. Take pain medicines exactly as directed. ? If the doctor gave you a prescription medicine for pain, take it as prescribed. ? If you are not taking a prescription pain medicine, ask your doctor if you can take an iffh-gcm-nkdtdyu medicine. Be careful not to take pain medicine more often than the instructions allow, because you may get worse or more frequent headaches when the medicine wears off. Do not ignore new symptoms that occur with a headache, such as a fever, weakness or numbness, vision changes, or confusion. These may be signs of a more serious problem. To prevent headaches Keep a headache diary so you can figure out what triggers your headaches. Avoiding triggers may help you prevent headaches. Record when each headache began, how long it lasted, and what the pain was like (throbbing, aching, stabbing, or dull). Write down any other symptoms you had with the headache, such as nausea, flashing lights or dark spots, or sensitivity to bright light or loud noise. Note if the headache occurred near your period. List anything that might have triggered the headache, such as certain foods (chocolate, cheese, wine) or odors, smoke, bright light, stress, or lack of sleep. Find healthy ways to deal with stress. Headaches are most common during or right after stressful times. Take time to relax before and after you do something that has caused a headache in the past. Try to keep your muscles relaxed by keeping good posture. Check your jaw, face, neck, and shoulder muscles for tension, and try relaxing them. When sitting at a desk, change positions often, and stretch for 30 seconds each hour. Get plenty of sleep and exercise. Eat regularly and well. Long periods without food can trigger a headache. Treat yourself to a massage. Some people find that regular massages are very helpful in relieving tension. Limit caffeine by not drinking too much coffee, tea, or soda. But don't quit caffeine suddenly, because that can also give you headaches. Reduce eyestrain from computers by blinking frequently and looking away from the computer screen every so often. Make sure you have proper eyewear and that your monitor is set up properly, about an arm's length away. Seek help if you have depression or anxiety. Your headaches may be linked to these conditions. Treatment can both prevent headaches and help with symptoms of anxiety or depression. When should you call for help? Call 911 anytime you think you may need emergency care. For example, call if: You have signs of a stroke. These may include: ? Sudden numbness, paralysis, or weakness in your face, arm, or leg, especially on only one side ofyour body. ? Sudden vision changes. ? Sudden trouble speaking. ? Sudden confusion or trouble understanding simple statements. ? Sudden problems with walking or balance. ? A sudden, severe headache that is different from past headaches. Call your doctor now or seek immediate medical care if: You have a new or worse headache. Your headache gets much worse. Where can you learn more? Go to https://[email or web address] and sign in to your MyChart account. Enter M271 in the Search Health Information box to learn more about Headache: Care Instructions. If you do not have an account, please click on the Sign Up Now link. Current as of: February 12, 2021 Content Version: 13.2 [employer]. Care instructions adapted under license by [employer]gram. If you have questions about a medical condition or this instruction, always ask your healthcare professional. [employer] disclaims any warranty or liability for your use of this information. Diarrhea During Cancer Treatment: Care Instructions Your Care Instructions Diarrhea is a common problem for people getting cancer treatment. Diarrhea can be caused by: Some medicines that damage the lining of your intestines. Radiation therapy aimed at your belly or pelvis. Surgery to remove part of your intestines. A side effect of bone marrow transplants called qejsm-yfakcv-what disease. Some infections that affect your bowels. Severe constipation. Sometimes when you get really constipated, watery stool is the only stool thatcan get past the hardened stool. Some types of cancer, such as colon cancer, can cause diarrhea directly. Plus,the stress of having cancer can lead to diarrhea. Diarrhea from cancer treatment may be just a minor problem or a sign of more serious problems. Always tell your doctor if you have diarrhea, especially if you see blood in it. Changes in your diet may solve the problem. Your doctormay prescribe medicine if your diarrhea is severe. Follow-up care is a light part of your treatment and safety. Be sure to make and go to all appointments, and call your doctor if you are having problems. It's also a good idea to know your test resultsand keep alist of the medicines you take. How can you care for yourself at home? Before you take any type of brrn-lce-pakxpth medicine, tell your doctor that you are having diarrhea. If your doctor prescribes diarrhea medicines, take them exactly as directed. Call your doctor if you have any problems with your medicine. Drink plenty of room-temperature fluids to prevent dehydration. Take frequent sips of water and other clear liquids until you feel better. When you feel like eating, start with small amounts of food. Rest when you feel tired. When should you call for help? Call 911 anytime you think you may need emergency care. For example, call if: You passed out (lost consciousness). You pass maroon or very bloody stools. Call your doctor now or seek immediate medical care if: You are vomiting. You have new or worse belly pain. You have a fever. You cannot pass stools or gas. You have new or more blood in your stools. Watch closely for changes in your health, and be sure to contact your doctor if: You have new or worse symptoms. You are losing weight. You do not get better as expected. Where can you learn more? Go to [email or web address] and sign in to your [employer] account. Enter K800 in the Search Health Information box to learn more about Diarrhea During Cancer Treatment: Care Instructions. If you do not have an account, please click on the Sign Up Now link. Current as of: November 08, 2020 Content Version: 13.2 TeamPatent. Care instructions adapted under license by copygram. If you have questions about a medical condition or this instruction, always ask your healthcare professional. [employer] disclaims any warranty or liability for your use of this information. Learning About Cleaning up Diarrhea Cleaning up diarrhea: Overview When cleaning up diarrhea, it is important to remember that germs can spread very easily. This can happen when people or items in the home come into contactwith diarrhea. Careful cleaning can help reduce the chance of spreading germs. The Centers for Disease Control and Prevention (CDC) recommends that you wear disposable gloves when cleaning up diarrhea or other body fluids. You may wear reusable rubber gloves if you wash and disinfect them after each use. If you don't have gloves, be sure to wash your hands thoroughly with soap and waterwhen you are finished. How do you clean up diarrhea from skin? 1. Wear disposable gloves. 2. Use damp paper towels to wipe up the stool off the skin, and put the used paper towels in a plastic trash bag. 3. Gently wash the area with warm water and a soft cloth. Rinse well, and dry completely. ? Do not use any soap on the person's bottom unless the area is very soiled. If soap is needed, useonly a mild soap, such as Cetaphil. ? If there's a rash on the skin, do not clean the skin with wet wipes that have alcohol or propylene glycol. These wipes may sting the skin. 4. Remove the gloves, and throw them away in a plastic bag. Then wash your hands with soap and water right away. How do you clean up diarrhea from soiled linens and clothes? 1. Wear disposable gloves. 2. Wipe off any stool with paper towels. Put the used paper towels in a plastic trash bag. Small amounts of easily removed stool can be removed with toilet paper and flushed down the toilet. 3. Put the linens in a large plastic bag. The bag should prevent moisture from leaking through. Take the bag to the washing machine. 4. Put the linens in the washing machine. Wash items in a pre-wash cycle first. Then use a regular wash cycle with detergent. Use the warmest temperatures recommended on their labels. 5. After you finish handling soiled clothes, remove your gloves and throw them away in a plastic bag. Then wash your hands with soap and water right away. 6. Dry clothes and linens in a clothes dryer. Use the warmest temperature recommended on the labels. There is no need to disinfect the tubs of the washer or the dryer after a fullcycle is completed. How do you clean up diarrhea from hard surfaces? 1. Wear disposable gloves. 2. Wipe up the stool with paper towels. Put the used paper towels in a plastic trash bag. Rinse thesurfaces with water. 3. Disinfect hard surfaces with diluted household bleach or with disinfectants that you buy at the store. Wet the surface with the diluted bleach or disinfectant and leave the disinfectant on the area for 5 minutes. Then clean the area again with soap and hot water. ? To dilute household bleach, follow the directions on the label. ? If you mix your own diluted bleach, use goggles or glasses to protect your eyes from splashes. ? Be aware that diluted bleach may remove color from some hard surfaces. 4. Remove your gloves, and throw them away in a plastic bag. Then wash your hands with soap and water right away. Where can you learn more? Go to https://[email or web address] [email or web address] and sign in to your [employer] account. Enter C909 in the Search Health Information box to learn more about Learning About Cleaning up Diarrhea. If you do not have an account, please click on the Sign Up Now link. Current as of: December 18, 2020 Content Version: 13.2 TeamPatent. Care instructions adapted under license by copygram. If you have questions about a medical condition or this instruction, always ask your healthcare professional. [employer] disclaims any warranty or liability for your use of this information. Head or Face Pain: Care Instructions Your Care Instructions Common causes of head or face pain are allergies, stress, and injuries. Other causes include tooth problems and sinus infections. Eating certain foods, such as chocolate or cheese, or drinking certain liquids, such as coffee or cola,can cause head pain for some people. If you have mild head pain, you may not need treatment. It is important to watch your symptoms and talk to your doctor if your pain continues or getsworse. Follow-up care is a light part of your treatment and safety. Be sure to make and go to all appointments, and call your doctor if you are having problems. It's also a good idea to know your test resultsand keep alist of the medicines you take. How can you care for yourself at home? Take pain medicines exactly as directed. ? If the doctor gave you a prescription medicine for pain, take it as prescribed. ? If you are not taking a prescription pain medicine, ask your doctor if you can take an [id number] pain medicine. Take it easy for the next few days or longer if you are not feeling well. Use a warm, moist towel or heating pad set on low to relax tight muscles in your shoulder and neck.Have someone gently massage your neck and shoulders. Put ice or a cold pack on the area for 10 to 20 minutes at a time. Put a thin cloth between the iceand your skin. When should you call for help? Call 911 anytime you think you may need emergency care. For example, call if: You have twitching, jerking, or a seizure. You passed out (lost consciousness). You have symptoms of a stroke. These may include: ? Sudden numbness, tingling, weakness, or loss of movement in your face, arm, or leg, especially ononly one side of your body. ? Sudden vision changes. ? Sudden trouble speaking. ? Sudden confusion or trouble understanding simple statements. ? Sudden problems with walking or balance. ? A sudden, severe headache that is different from past headaches. You have jaw pain and pain in your chest, shoulder, neck, or arm. Call your doctor now or seek immediate medical care if: You have a fever with a stiff neck or a severe headache. You have nausea and vomiting, or you cannot keep food or liquids down. Watch closely for changes in your health, and be sure to contact your doctor if: Your head or face pain does not get better as expected. Where can you learn more? Go to [email or web address] and sign in to your [employer] account. Enter P568 in the Search Health Information box to learn more about Head or Face Pain: Care Instructions. If you do not have an account, please click on the Sign Up Now link. Current as of: August 31, 2020 Content Version: 13.2 TeamPatent. Care instructions adapted under license by copygram. If you have questions about a medical condition or this instruction, always ask your healthcare professional. [employer]Patent disclaims any warranty or liability for your use of this information. * Attachments The following attachments cannot be sent through Care Everywhere. * Headache (Luxembourger) * Diarrhea (Luxembourger) documented [facility] Work Phone: Hospital Discharge instructions Additional Instructions If your symptoms return/worsen or you develop any further concerns or symptoms please see your doctor or return to the emergency department immediately.[facility] Work Phone: Hospital Discharge instructions Additional Instructions Regular diet No activity restrictionsSt. [facility] Hospital Work Phone: Hospital Discharge instructions No data available for this section [facility] Additional Instructions Need 10 more tabs of Amoxicillin Regular diet No activity restrictionsSt. [facility] Work Phone: Hospital Discharge instructions* Attachments The following attachments cannot be sent through Care Everywhere. * Panic Attacks (Luxembourger) documented in this encounterBON BAN[facility]ENTERGather App [facility] Work Phone: Hospital Discharge instructions* Attachments The following attachments cannot be sent through Care Everywhere. * Suicidal Thoughts (Luxembourger) documented in this encounterC[facility] Work Phone: Hospital Discharge instructions Additional Instructions Take the valacyclovir 3 times a day for 7 days Take 1 Zofran every 8 hours as needed for nausea vomiting Increase oral fluids Follow-up with family doctor Return to the ER for worsening pain vomiting abdominal pain fever or any other concernsSt. [facility] Hospital Work Phone: Hospital Discharge instructions* Attachments The following attachments cannot be sent through Care Everywhere. * Anemia (Luxembourger) * Dizziness (Luxembourger) documented in this encounterC[facility] Work Phone: Hospital Discharge instructions* Attachments The following attachments cannot be sent through Care Everywhere. * Anxiety Disorder (Luxembourger) documented in this encounterH[facility]PROM[facility] Work Phone: Hospital Discharge instructions* Attachments The following attachments cannot be sent through Care Everywhere. * Sinus Rinse (Luxembourger) * Sinusitis: Acute (Luxembourger) documented in this encounterCEN[facility] Work Phone: Hospital Discharge instructions* Attachments The following attachments cannot be sent through Care Everywhere. * Dizziness (Luxembourger) documented in this encounterC[facility] Work Phone: Hospital Discharge instructions* Attachments The following attachments cannot be sent through Care Everywhere. * Lightheadedness or Faintness (Luxembourger) documented in this encounterCENTRA [facility]OU[facility]OSPITALProgress note No data available for this section [facility] Summary Purpose Family History No Family History Records Found Medical History Relation Name Comments Kidney Disease Father Diabetes Maternal Grandfather Relation Name Status Comments Father Alive Maternal Grandfather Maternal Grandmother Alive Mother Alive Paternal Grandfather Paternal Grandmother Alive Relationship Condition Age at Onset Recorded Date/T sergio Not Specified No pertinent family history Unknown Advance Directives No Advanced Directives Records FoundDocuments on File Type Date Recorded Patient Cook Helper Dessert Expl anation Advance Directives and Living Will Power of Director Of Accreditation Latest Code Status on File Code Status Date Activated Date Inactivated Comments Full Code 10/01/2018 9:43 PM 10/03/2018 5:25 PM Full Code 09/08/2018 10:04 PM 09/17/2018 2:54 PM Full Code 09/06/2018 6:44 PM 09/08/2018 2:37 PM Full Code 08/10/2018 9:52 PM 08/16/2018 11:21 AM Documents on File Type Date Recorded Patient Cook Helper Dessert Expl anation Advance Directives and Living Will Power of Director Of Accreditation Latest Code Status on File Code Status Date Activated Date Inactivated Comments Full Code 10/01/2018 9:43 PM 10/03/2018 5:25 PM Full Code 09/08/2018 10:04 PM 09/17/2018 2:54 PM Full Code 09/06/2018 6:44 PM 09/08/2018 2:37 PM Full Code 08/10/2018 9:52 PM 08/16/2018 11:21 AM Documents on File Type Date Recorded Patient Cook Helper Dessert Expl anation Advance Directives and Livin g Will 10/20/2018 10:20 AM Documents on File Type Date Recorded Patient Cook Helper Dessert Expl anation ACP-Advance Directive ACP-Power of Director Of Accreditation Advance Directive Response Recorded Date/ Time Advance Directives No July 14 2:54am Latest Code Status on File Code Status Date Activated Date Inactivated Comments Full Code 10/01/2018 9:43 PM 10/03/2018 5:25 PM Code Status History Code Status Date Activated Date Inactivated Comments Full Code 09/08/2018 10:04 PM 09/17/2018 2:54 PM Full Code 09/06/2018 6:44 PM 09/08/2018 2:37 PM Full Code 08/10/2018 9:52 PM 08/16/2018 11:21 AM Discharge Instructions * Attachments The following attachments cannot be sent through Care Everywhere. * Depression: Treatment (Luxembourger) documented in this encounter* Instructions* Cas Miller DO - 11/19/2018 Follow-up with your gas regulator repairer helper and group therapy. Resume your home medications. Return to the ED if you have any problems, feel unsafe, or you are having difficulties with your safety plan * Attachments The following attachments cannot be sent through Care Everywhere. * Suicidal Thoughts (Luxembourger) * Mood Disorders: General Info (Luxembourger) documented in this encounter* Attachments The following attachments cannot be sent through Care Everywhere. * Depression: Self Care (Luxembourger) * Depression: Treatment (Luxembourger) documented in this encounter* Attachments The following attachments cannot be sent through Care Everywhere. * Anxiety Disorder (Luxembourger) documented in this encounter History of Present Illness * Lara Williamson - 10/18/2018 2:14 AM EDT Went in to talk to patient. She is having some issues with her rastafari friends and them accepting her. Patient would like to be admitted here to our inpatient unit. She currently has a care plan, Registered with [facility], Has a casemanager at [facility], and a psychiatrist. She is supposed to utilize her wrap around care. She is not suicidal tonight. She is having mild depression and will be discharged To followup with Dr. Anand on Friday. She will be here Friday for IOP. Informed attending physician of the psychiatric decision. documented in this encounter* Mary Stephenson LISW-S - 11/19/2018 12:41 PM EDT Patient calm and cooperative. Denies needs. Awaiting return call from psychiatry. * Mary Stephenson LISW-S - 11/19/2018 10:04 AM EDT Provisional Diagnosis: Major Depressive Disorder, Recurrent Risk, Psychosocial and Contextual Factors: Recent conflict with rastafari Current Treatment: [facility] Present Suicidal Behavior: Verbal: Yes-Plan to Overdose Attempt: Denies Access to Weapons: Denies Current Suicide Risk: Low, Moderate or High: High Past Suicidal Behavior: Verbal: Yes Attempt: Denies Self-Injurious/Self-Mutilation: Denies Traumatic Event Within Past 2 Weeks: Recent conflict Current Abuse: Denies Legal: Denies Violence: Denies Protective Factors: Fiance, Friends and Family Housing: Lives with nimisha Burns Clinical Summary: Patient is a 38 year old female who presents to the ED voluntarily due to suicidal ideation. Patient reports thoughts of overdosing. She reports that she has been suicidal since last Friday with thoughts to overdose since yesterday. Patient did attend psychotherapy this morning in the IOP program.Per clinician notation patient did well in group today and did not mention any suicidal thoughts. She reports that she does not feel heard in the program and that is why she did not tell anyone. She also reports that today is her last day in IOP. Patient reports she stopped taking medication on 11/16/18. She reports that she re-started them on Friday. Patient reports 'people at [employer] make her feel like giving up'. Patient reports receiving outpatient services from [facility], [facility], and [place]. Homicidal thoughts and/or plans denied. No delusions noted. Hallucinations denied. AOD denied. Legalissues denied. Violence denied. Patient last admission to on 10/01/18. Level of Care Disposition: Consulted with medical provider Cas. Patient is medically cleared. Consulted with Dr. Thorpe. Patient to be discharged to follow up outpatient as scheduled. Informed medical provider Cas. Informed patient. documented in this encounter* Irma Pat LSW - 12/03/2018 10:37 AM EDT Provisional Diagnosis: Major depressive disorder, recurrent Risk, Psychosocial and Contextual Factors: Relational and Situational Stressors Current Treatment: Josh in [place] and [facility] Present Suicidal Behavior: Verbal: Yes, present suicidal thoughts with a plan to overdose Attempt: denied Access to Weapons: Denied Current Suicide Risk: Low, Moderate or High: Moderate Past Suicidal Behavior: Verbal: Yes Attempt: Denies Self-Injurious/Self-Mutilation: Denies Traumatic Event Within Past 2 Weeks: Denied Legal: Denies Violence: Denies Protective Factors: Access to others and connection to providers Housing: Lives with her boyfriend Clinical Summary: Patient is a 38 year old female who presents to the ED voluntarily. Pt has a history of inpatient admissions and a special case plan. Pt was recently admitted to from 10/01/18-10/03/18. Pt reports that she has 'never gotten better' since concluding [facility] last month. Pt reports suicidal thoughts onset of a week or so. Pt reports present thoughts of overdosing on her anxiety medications but denies intent. Pt reports that she feels like her rastafari friends 'do not want me around' and are 'not treatingme nicely.' Pt endorsed feeling depressed and trouble sleeping. Patient reports receiving outpatient services from [facility] and [place]. Pt currently has an appointment with her psychiatrist at [place] today at 4pm. Pt reports present compliance with her medications. Homicidal thoughts and/or plansdenied. No delusions noted. Hallucinations denied. AOD denied. Legal issues denied. Violence denied. Level of Care Disposition: [address] Thorpe. Pt to be discharged and follow-up outpatient with her MH services. Dr. Thorpe states he will not admit the patient to 4E. Dr. Thorpe states he is willing to see the patient in the ED if the provider does not feel comfortable discharging the patient. 1124 ED provider informed and pt informed of disposition. documented in this encounter Assessments Diagnosis Depression, unspecified depression type- Primary Diagnosis Suicidal thoughts- Primary Suicidal ideation Episode of recurrent major depressive disorder, unspecified depression episode severity (HCC) Diagnosis Anxiety- Primary Anxiety state, unspecified Diagnosis Edema, unspecified type- Primary Diagnosis Irregular menses Irregular menstrual cycle Chief Complaint and Reason for Visit Chief Complaint sinus issues, mucus Chief Complaint sinus issues, mucus MDD Reason for Visit Anxiety Major depressive disorder, recurrent Chief Complaint sinus issues, mucus MDD MDD MDD Reason for Visit Anxiety Major depressive disorder, recurrent Major depressive disorder, recurrent Suicidal ideation Major depressive disorder, recurrent Chief Complaint MDD MDD MDD Reason for Visit Anxiety Major depressive disorder, recurrent Major depressive disorder, recurrent Suicidal ideation Major depressive disorder, recurrent Chief Complaint nausea Chief Complaint M79.641 MDD Reason for Visit Major depressive dis order, recurrent Chief Complaint M79.641 MDD cough,congestion Reason for Visit Major depressive dis order, recurrent Additional Source Comments INFORMATION SOURCE (unrecogn ized section and content) DATE CREATED AUTHOR 08/22/2017 [facility] DATE CREATED AUTHOR AUTHOR'S ORGANIZ ATION 10/21/2018 [facility] DATE CREATED AUTHOR AUTHOR'S ORGANIZ ATION 05/24/2020 [facility] DATE CREATED AUTHOR AUTHOR'S ORGANIZ ATION 07/29/[facility] DATE CREATED AUTHOR AUTHOR'S ORGANIZ ATION 07/15/2021 [facility] DATE CREATED AUTHOR AUTHOR'S ORGANIZ ATION 07/11/2022 [facility] DATE CREATED AUTHOR AUTHOR'S ORGANIZ ATION 10/27/2022 [facility] DATE CREATED AUTHOR AUTHOR'S ORGANIZ ATION 11/12/2022 [facility] DATE CREATED AUTHOR AUTHOR'S ORGANIZ ATION 02/07/2023 [facility] DATE CREATED AUTHOR AUTHOR'S ORGANIZ ATION 02/11/2023 [facility] DATE CREATED AUTHOR AUTHOR'S ORGANIZ ATION 02/11/2023 [facility]it Pay[facility] DATE CREATED AUTHOR AUTHOR'S ORGANIZ ATION 03/04/2023 [facility] DATE CREATED AUTHOR AUTHOR'S ORGANIZ ATION 03/05/2023 [facility] Reason for Visit (unrecogniz ed section and content) Reason Comments Suicidal Depression Anxiety Reason Comments Suicidal Reason Comments Depression Suicidal Reason Comments Suicidal Anxiety Depression Reason Comments Foot Swelling Reason Comments Sinusitis Pt thinks she has si nus infection and has had yellow drainage. Reason Comments Sinusitis for a week and half Reason Comments Concern For COVID-19 Reason Comments Suicidal Depressed and feelin g not worth living, made a plan but did not follow through Anxiety Reason Comments Psychiatric Evaluation Suicidal Reason Comments Anxiety Pt states over the w eekend she felt overwhelmed with thoughts of loneliness from her marital issues and wished she was not alive; no plan and no active thoughts of SI currently Reason Comments Dizziness Onset x2 days Reason Comments Anxiety Has anxiety an depre ssion and has been under stress for awhile. Reason Comments Nasal Congestion Complains of sinus c ongestion and headache ongoing for awhile . Reports feeling chest aching and anxiety. Reason Comments Back Pain Mechanical fall last PM onto pile of metal, c/o lower back and tailbone pain/bruising. Denies LOC/hitting head Reason Comments Dizziness C/o INT dizziness x couple months Reason Comments Letter for School/Work Dizziness Friday- symptoms hav e subsided and not re-occured since Friday Reason Comments Abscess Pt with complaint of abscess in left arm pit. Pt states it has been there for months and today it popped. Pt states a yellow drainage is coming out and it is painful Reason Comments Diarrhea Diarrhea x couple da ys. Denies emesis, c/o nausea Reason Comments Dizziness Complains of dizzine ss for the past month. Worse with standing. Patient believes dizziness is caused by some of her daily medications. Reason Comments Dizziness Dizziness off and on for 1 month Reason Comments Wrist Pain Injured wrist September 02 after fall. States diagnosed with wrist sprain. Complaint of ongoing pain to wrist. Sinusitis Pt reports sinus pre ssure for approx 1-2 weeks. States I took off work today because i'm not feeling good. Placed on doxycyline yesterday by pcp but has not taken it. Reason Comments Diarrhea Pt reports diarrhea after eating x couple days Reason Comments Letter for School/Work Patient presents to the emergency department requesting a slip for work d/t her calling off today because her left wrist was hurting Wrist Pain Reports that her lef t wrist has been hurting for a long time Mental Health Problem Patient requesting to talk to someone about her feeling more anxious and depressed. Denies suicidal or homicidal ideations at this time Reason Comments Letter for School/Work Pt states she mis sed work today due to wrist pain Wrist Pain Pt with chronic righ t wrist pain Reason Comments Joint Swelling Pt. Reports ankles b een swollen for about 2 weeks, & not getting any better. Arnol Galan, DO - 10/20/2018 10:37 AM RENUTHallManjula RN - 10/20/2018 10:17 AM EDT ED Notes (unrecognized secti on and content) [facility] ED Note: NAME: Rosangela Malhotra 38 y.o. CSN: [id number] PCP: Shan Rivas DO History: Chief Complaint: Foot Swelling HPI: She is a 38 y.o. female who presents with a chief complaint of Foot Swelling. History provided by: Patient Leg Pain Lower extremity pain location: swelling of both lower legs and feet, 1 plus edema. Pain details: Quality: no pain. Onset quality: Gradual Severity: Mild Timing: Constant Progression: Unchanged Foreign body present: No foreign bodies PMHx: History reviewed. No pertinent past medical history. PMSx: Past Surgical History: Procedure Laterality Date WISDOM TOOTH EXTRACTION FAM. Hx: History reviewed. No pertinent family history. SOC. Hx: Social History Socioeconomic History Marital status: Single Spouse name: Not on file Number of children: Not on file Years of education: Not on file Highest education level: Not on file Occupational History Not on file Social Needs Financial resource strain: Not on file Food insecurity: Worry: Not on file Inability: Not on file Transportation needs: Medical: Not on file Non-medical: Not on file Tobacco Use Smoking status: Never Smoker Smokeless tobacco: Never Used Substance and Sexual Activity Alcohol use: Never Frequency: Never Drug use: Never Sexual activity: Not on file Lifestyle Physical activity: Days per week: Not on file Minutes per session: Not on file Stress: Not on file Relationships Social connections: Talks on phone: Not on file Gets together: Not on file Attends oriental orthodox service: Not on file Active member of club or organization: Not on file Attends meetings of clubs or organizations: Not on file Relationship status: Not on file Other Topics Concern Not on file Social History Narrative Not on file MEDs: Previous Medications Medication Sig ARIPiprazole (ABILIFY) 10 MG tablet Take 10 mg by mouth daily . busPIRone (BUSPAR) 10 MG tablet Take 10 mg by mouth 3 (three) times a day . meloxicam (MOBIC) 15 MG tablet Take 15 mg by mouth daily . sertraline (ZOLOFT) 25 MG tablet Take 25 mg by mouth daily . traZODone (DESYREL) 50 MG tablet Take by mouth nightly as needed . ALL: No Known Allergies ROS: Review of Systems Constitutional: Negative. HENT: Negative. Eyes: Negative. Respiratory: Negative. Cardiovascular: Negative. Gastrointestinal: Negative. Endocrine: Negative. Genitourinary: Negative. Musculoskeletal: Negative. Skin: Negative. Allergic/Immunologic: Negative. Neurological: Negative. Hematological: Negative. Psychiatric/Behavioral: Negative. All other systems reviewed and are negative. Positives and pertinent negatives as per HPI. All other systems were reviewed and are negative. Physical Exam: Patient Vitals for the past 24 hrs: BP Temp Temp src Pulse Resp SpO2 Height Weight 10/20/18 1012 128/85 97.8 F (36.6 C) Temporal 93 18 99 % 5' 2 78 kg (172 lb) Physical Exam Constitutional: She appears well-developed and well-nourished. HENT: Head: Normocephalic and atraumatic. Eyes: EOM are normal. Pupils are equal, round, and reactive to light. Neck: Normal range of motion. Neck supple. Pulmonary/Chest: Effort normal. Abdominal: Soft. Musculoskeletal: Normal range of motion. Right lower leg: Edema present. Left lower leg: Edema present. Comments: Equal edema no erythema warmth or rash Neurological: She is alert. Skin: Skin is warm and dry. Nursing note and vitals reviewed. Laboratory & Radiological Imaging (if done): Labs Reviewed - No data to display No orders to display Procedures ED Course / Medical Decision Making: Lasix daily for 3 days then prn Clinical Impression: 1. Edema, unspecified type Disposition: New Prescriptions furosemide (LASIX) 40 MG tablet Take 1 (one) tablet (40 mg total) by mouth daily for 10 days . If discharged to home Follow with family Dr in 1-2 days , return if problems, meds if prescribed. Arnol Galan DO ED Physician [facility] Emergency Department (Please note that portions of this note have been completed with a voice recognition software. Efforts were made to correct any errors, but occasionally words are mis-transcribed.) Arnol Galan DO 10/20/18 1039 Patient presents to ED with c/o BLE swelling. States that she is concerned something maybe wrong. Denies pain. +1 pitting edema noted to BLE. Pedal pulses strong and palpable. Denies SOB and chest pain. Denies cardiac history. States being on feet a lot lately. documented in this encounter Ordered Prescriptions (unrec ognized section and content) Prescription Sig Dispensed Refills Start Date End Da te amoxicillin-clavulanate (AUGMENTIN) 875-125 MG per tablet Take 1 tablet by mouth 2 times daily for 10 days 20 tablet 0 08/04/2020 08/14/2020 Prescription Sig Dispensed Refills Start Date End Da te brompheniramine-pseudo ephedrine-DM 2-30-10 MG/5ML syrup Take 5 mLs by mouth 3 times daily as needed for Congestion or Cough 100 mL 0 07/31/2021 08/05/2021 predniSONE (DELTASONE) 20 MG tablet Take 2 tablets by mouth daily for 5 doses 10 tablet 0 07/31/2021 08/05/2021 amoxicillin (AMOXIL) 500 mg capsule Take 1 capsule by mouth 3 times daily for 10 days 30 capsule 0 07/31/2021 08/10/2021 Prescription Sig Dispensed Refills Start Date End Da te hydrOXYzine HCl (ATARAX) 25 MG tablet Take 1 tablet by mouth every 8 hours as needed for Anxiety 10 tablet 0 07/10/2022 Prescription Sig Dispensed Refills Start Date End Da te naproxen (NAPROSYN) 375 MG tablet Take 1 tablet by mouth 2 times daily (with meals) for 7 days 14 tablet 0 07/28/2022 08/04/2022 Prescription Sig Dispensed Refills Start Date End Da te guaiFENesin (MUCINEX) 600 MG extended release tablet Take 1 tablet by mouth 2 times daily for 15 days 30 tablet 0 09/19/2022 10/04/2022 acetaminophen (TYLENOL) 500 MG tablet Take 2 tablets by mouth every 8 hours as needed for Pain 360 tablet 0 09/19/2022 amoxicillin-clavulanate (AUGMENTIN) 875-125 MG per tablet Take 1 tablet by mouth 2 times daily for 7 days 14 tablet 0 09/19/2022 09/26/2022 Prescription Sig Dispensed Refills Start Date End Da te furosemide (LASIX) 20 MG tablet Take 1 tablet by mouth daily for 5 days 5 tablet 0 11/02/2022 11/07/2022 Care Teams (unrecognized sec tion and content) Team Status: Inactive Member Role Status Dates Huma Barone MD Primary Care Provider Active Clifford Yusuf DO Emergency Provider Active Team Status: Active Member Role Status Dates Huma Barone MD Primary Care Provider Active Team Status: Inactive Member Role Status Dates Huma Barone MD Primary Care Provider Active Miguelangel Zhou MD Admit Provider, Attending Provider Active Team Status: Inactive Member Role Status Corky Sloan DO Primary Care Provider Active Miguelangel Zhou MD Admit Provider, Attending Provider Active Team Status: Inactive Member Role Status Dates Huma Barone MD Primary Care Provider Active Lisa Julian MD Admit Provider, Attending Pr ovider Active Team Status: Active Member Role Status Corky Sloan DO Primary Care Provider Active Team Status: Active Member Role Status Dates PHYSICIAN NO FAMILY Primary Care Provider Active Team Status: Inactive Member Role Status Dates PHYSICIAN NO FAMILY Primary Care Provider Active WILLIAMS Kam- Emergency Provider Active Dairy Bacteriologist Relationship Specialty Start Date End Date Coy Day DO [address] [place] [address] PCP - General Family Medicine 06/10/22 Dairy Bacteriologist Relationship Specialty Start Date End Date Coy Day, DO [address] [place] [address] PCP - General Family Medicine 06/10/22 Dairy Bacteriologist Relationship Specialty Start Date End Date Coy Day, DO [address] [facility] [place] [address] PCP - General Family Medicine 06/10/22 Dairy Bacteriologist Relationship Specialty Start Date End Date Coy Day, DO [address] [facility] [place] [address] PCP - General Family Medicine 06/10/22 Dairy Bacteriologist Relationship Specialty Start Date End Date Coy Day, DO [address] [facility] [place] [address] PCP - General Family Medicine 06/10/22 Dairy Bacteriologist Relationship Specialty Start Date End Date Coy Day, DO [address] [facility] [place] [address] PCP - General Family Medicine 06/10/22 Dairy Bacteriologist Relationship Specialty Start Date End Date Coy Day, DO [address] [facility] [place] [address] PCP - General Family Medicine 06/10/22 Dairy Bacteriologist Relationship Specialty Start Date End Date Coy Dya, DO [address] [facility] [place] [address] PCP - General Family Medicine 06/10/22 Dairy Bacteriologist Relationship Specialty Start Date End Date Beth Ortiz APRN - COMMERCIAL AGENT [address] [facility];[address] [place] [address] PCP - General Nurse Practitioner 09/07/22 Dairy Bacteriologist Relationship Specialty Start Date End Date Beth Ortiz APRN - COMMERCIAL AGENT [address] [place] [address];[address] [facility] [place] [facility] [place] [address] PCP - General Nurse Practitioner 09/07/22 Dairy Bacteriologist Relationship Specialty Start Date End Date Beth OrtizJIMMY - COMMERCIAL AGENT [address] [place] [address];[address] [place] [address] [place] [address] PCP - General Nurse Practitioner 09/07/22 Dairy Bacteriologist Relationship Specialty Start Date End Date Beth OrtizJIMMY - COMMERCIAL AGENT [address] [place] [address];[address] [place] [address] [place] [address] PCP - General Nurse Practitioner 09/07/22 Team Status: Inactive Member Role Status Dates Coy Day , DO Primary Care Provider Active Sarai Mendoaz , BUSINESS PROCESS REPRESENTATIVE Attending Provider Active Team Status: Inactive Member Role Status Dates PHYSICIAN NO FAMILY Primary Care Provider Active Miguelangel Zhou MD Admit Provider, Attending Provider Active Team Status: Active Member Role Status Dates NON STAFF Primary Care Provider Active Team Status: Inactive Member Role Status Dates NON STAFF Primary Care Provider Active Ace Frankel DO Emergency Provider Active Dairy Bacteriologist Relationship Specialty Start Date End Date Beth Ortiz, JIMMY - BEA [address] [place] [address];[address] [place] [address] [place] [address] PCP - General Nurse Practitioner 09/07/22 Goals (unrecognized section and content) Goals may be documented in a n alternate section Scheduled Active and Recently Administ ered Medications (unrecognized section and content) Medication Order 11/16/2021 11/17/2021 11/18/2021 ALPRAZolam (XANAX) tablet 0.5 mg (COMPLETED) 0.5 mg, Oral, ONCE, 1 dose, On Fri11/18/21 at 1845 1843 (Given - Provid er: Farideh Doyle RN) Scheduled Medication Order 07/08/2022 07/09/2022 07/10/2022 hydrOXYzine pamoate (VISTARIL) capsule 25 mg (COMPLETED) 25 mg, Oral, ONCE, 1 dose, On Fri07/10/22 at 1230 1232 (Given - Provid er: Padmini Corley RN) Scheduled Medication Order 07/09/2022 07/10/2022 07/11/2022 ketorolac (TORADOL) injection 30 mg (COMPLETED) 30 mg, IntraMUSCular, ONCE, 1 dose, On [place] 07/11/22 at 0900, Do not administer for more than 5 days. 0945 (Given - Provid er: Winnie Shen RN) Scheduled Medication Order 07/26/2022 07/27/2022 07/28/2022 ketorolac (TORADOL) injection 45 mg (COMPLETED) 45 mg, IntraMUSCular, ONCE, 1 dose, On [place] 07/28/22 at 2200, Do not administer for more than 5 days. 2152 (Given - Provid er: Linda Samuels RN) Scheduled Medication Order 08/03/2022 08/04/2022 08/05/2022 0.9 % sodium chloride bolus 1,000 mL (13.8 mL/kg), IntraVENous, at 983.6 mL/hr, Administer over 61 Minutes, ONCE, On 08/05/22 at 1045, For 1 dose 1022 (Not Given - Pr ovider: Dinora Khan RN - Reason: Patient/family refused) Scheduled Medication Order 09/17/2022 09/18/2022 09/19/2022 acetaminophen (TYLENOL) tablet 1,000 mg (COMPLETED) 1,000 mg, Oral, ONCE, 1 dose, On [place] 09/19/22 at 1230, Maximum dose of acetaminophen is 4000 mg from all sources in 24 hours. 1236 (Given - Provid er: Winnie Shen RN) oxymetazoline (AFRIN) 0.05 % nasal spray 2 spray (COMPLETED) 2 spray, Each Nostril, ONCE, 1 dose, On [place] 09/19/22 at 1230 1236 (Given - Provid er: Winnie Shen RN) FOR RECORDS PERTAINING TO PATIENTS WHO ARE OR HAVE BEEN ENROLLED IN A CHEMICAL DEPENDENCY/SUBSTANCEABUSE PROGRAM, SOME INFORMATION MAY BE OMITTED. This clinical summary was aggregated from multiple sources. Caution should be exercised in using it in the provision of clinical care. This summary normalizes information from multiple sources, and as a consequence, information in this document may materially change the coding, format and clinical context of patient data. In addition, data may be omitted in some cases. CLINICAL DECISIONS SHOULD BE BASED ON THE PRIMARY CLINICAL RECORDS. [facility] provides no warranty or guarantee of the accuracy or completeness of information in this document.
--- NOTE | 2023-03-06 06:31 | ED.URI1 ---
HPI - URI/Sore Throat General Chief Complaint: Upper Respiratory Infection Stated Complaint: FEVER, HEADACHE, BODYACHE Time Seen by Provider: 03/06/23 06:17 Source: patient Limitations: no limitations History of Present Illness HPI Narrative: This 43-year-old female presents for evaluation of feeling feverish with nausea and a headache and generalized body aches. The patient states that she went back to work on Friday after the holiday and somebody at her job had COVID. She has been vaccinated. She states she had Covid last fall. She denies any chest pain or shortness of breath. She has not had any vomiting but states she had one episode of diarrhea this morning. She was trying to go to work but instead came to the emergency department because she does not feel well enough to go to work and requests a note for work. She denies the possibility of . She denies any dizziness or syncope. She has not taken any medications for her symptoms. The patient states that the symptoms have been ongoing for the past 2 weeks but she has not been tested or seen for these symptoms prior to today. Related Data Home Medications Medication Instructions Recorded Confirmed aripiprazole 20 mg tablet mg 11/21/22 oxcarbazepine 150 mg tablet mg 11/21/22 quetiapine 25 mg tablet mg 11/21/22 sertraline 100 mg tablet mg 11/21/22 Allergies Allergy/AdvReac Type Severity Reaction Status Date / Time No Known Drug Allergies Allergy Verified 03/06/23 06:19 Review of Systems ROS Status of ROS 10 or more systems reviewed and unremarkable except as noted in history and below [facility] Social History Smoking status: Never smoker Exam Narrative Exam Narrative: Nurses note and vital signs reviewed and patient is not hypoxic.She is afebrile with a normal pulse, diastolic blood pressure is mildly elevated at 120/94 General: The patient appears well and in no apparent distress. Patient is resting comfortably on cart. Skin: Warm, dry, no pallor noted. There is no rash noted. Head: Normocephalic, atraumatic Eye: Normal conjunctiva, no drainage, EOMI. PERRL Ears, Nose, Mouth, and Throat: oral mucosa is moist. Nares patent. Mouth without vesicles. Cardiovascular: Regular Rate and Rhythm S1S2, No murmurs rubs or gallops Respiratory: Patient is in no distress, no accessory muscle use, lungs are clear to auscultation, no wheezing, rales or rhonchi Back: non-tender, no CVA tenderness bilaterally to percussion. GI: Normal bowel sounds, no tenderness to palpation, no masses appreciated. No rebound, guarding, or rigidity noted. Musculoskeletal: The patient has no evidence of calf tenderness, no pitting edema, symmetrical pulses noted bilaterally Neurological: A&O x4, normal speech Psychiatric: Cooperative Constitutional Vital Signs, click to edit/add: Last Vital Signs Temp 98.1 F 03/06/23 06:16 Pulse 76 03/06/23 06:16 Resp 18 03/06/23 06:16 BP 120/94 H 03/06/23 06:16 Pulse Ox 99 03/06/23 06:16 O2 Del Method Room Air 03/06/23 06:16 Course Vital Signs Vital signs: Vital Signs Temperature 98.1 F 03/06/23 06:16 Pulse Rate 76 03/06/23 06:16 Respiratory Rate 18 03/06/23 06:16 Blood Pressure 120/94 H 03/06/23 06:16 Pulse Oximetry 99 03/06/23 06:16 Oxygen Delivery Method Room Air 03/06/23 06:16 Temperature 98.1 F 03/06/23 06:16 Pulse Rate 76 03/06/23 06:16 Respiratory Rate 18 03/06/23 06:16 Blood Pressure 120/94 H 03/06/23 06:16 Pulse Oximetry 99 03/06/23 06:16 Oxygen Delivery Method Room Air 03/06/23 06:16 MDM - URI/Sore Throat MDM Narrative Medical decision making narrative: This 43 female who is well-known to this emergency department presents for evaluation of feeling feverish with body aches, headache and nausea. She has not vomited but states she has had one episode of diarrhea. She was driving to work this morning and did not feel well enough to go to work so she came to the hospital instead. Her vital signs are stable. Her mucous membranes are moist and pink, her lungs are clear, her abdomen is soft. She does not have a fever here and has not taken any medications. She does state that she was exposed to covered 19 at work after the holiday. Covered 19 and influenza testing was ordered and were both negative She was given a Gatorade and peanut butter and crackers because she had not eaten this morning and was medicated with Zofran, ibuprofen and Tylenol. She was given a note for work at her request and she was discharged home in stable condition. Lab Data Labs: Lab Results 03/06/23 Range/Units 06:20 SARS-CoV-2 (PCR) Negative (NEGATIVE) Influenza Type A Ag Negative Influenza Type B Ag Negative Discharge Plan Discharge Chief Complaint: Upper Respiratory Infection Clinical Impression: Acute viral syndrome Patient Disposition: Home, Self-Care Time of Disposition Decision: 06:42 Condition: Good Prescriptions / Home Meds: No Action quetiapine 25 mg tablet oxcarbazepine 150 mg tablet sertraline 100 mg tablet aripiprazole 20 mg tablet Instructions: Viral Syndrome (ED) Stand Alone Forms: Portal Instructions Referrals: Physician,Non-Staff, MD [Primary Care Provider] - 1 week Discharge Date/Time: 03/06/23 06:51
[2023-03-06 06:39] LABS: Influenza Virus A Antigen Negative; Influenza Virus B Antigen Negative; Internal Control Within Normal Limits; SARS-CoV-2 Ag NEGATIVE (NEGATIVE)
[2023-03-06] MEDS: ACETAMINOPHEN 325 MG TABLET 650 MG PO (06:47)
[2023-03-06] MEDS: IBUPROFEN 400 MG TABLET PO (06:47)
[2023-03-06] MEDS: ONDANSETRON 4 MG RAPDIS TABLET SL (06:47)
== END 2023-03-06 06:51 | disposition home or self-care (01) ==
PROVIDERS: Emergency Provider Emergency Medicine
DX: B34.9 Viral infection, unspecified (principal); Z86.16 Personal history of COVID-19; Z79.899 Other long term (current) drug therapy; Z20.822 Contact with and (suspected) exposure to COVID-19
CPT/HCPCS: 87635; 87804; 87811; 99283; Q0162

== ENCOUNTER 2023-03-19 07:59 | Emergency (ER) | payer OTHER, SELFPAY ==
[2023-03-19 08:01] VITALS: BP 129/98; PULSE 94; RESP 16; TEMP 36.9; O2SAT 98; BMI 29.3
--- NOTE | 2023-03-19 08:10 | ED_ITS ---
HPI - Fall General Chief Complaint: Fall Stated Complaint: BACK PAIN/ UPPER EXTREMITY PAIN/ FALL Time Seen by Provider: 03/19/23 08:00 Source: patient Mode of arrival: walk-in Limitations: no limitations History of Present Illness HPI Narrative: Patient slipped on the ice on the steps outside of her apartment. She landed on her buttocks and struck the left elbow and left hand against the ground. She was able to get up and walk afterward but complains of pain to the left buttock and lower left back. No injury to the head or neck and no LOC. She is able to move her left UE normally including the elbow, hand and wrist. She did not take anything for the pain. Related Data Home Medications Medication Instructions Recorded Confirmed aripiprazole 20 mg tablet mg 11/21/22 oxcarbazepine 150 mg tablet mg 11/21/22 quetiapine 25 mg tablet mg 11/21/22 sertraline 100 mg tablet mg 11/21/22 Previous Rx's Medication Instructions Recorded methocarbamol 750 mg tablet 750 mg PO Q6H PRN pain #30 tabs 03/19/23 nabumetone 750 mg tablet 750 mg PO BID PRN pain #14 tabs 03/19/23 Allergies Allergy/AdvReac Type Severity Reaction Status Date / Time No Known Drug Allergies Allergy Verified 03/06/23 06:19 [facility] Social History Smoking status: Never smoker Exam Narrative Exam Narrative: Nurses note and vital signs reviewed and patient is not hypoxic. afebrile General: The patient appears well and in no apparent distress. Patient is resting comfortably on cart. GCS = 15. Skin: Warm, dry, no pallor noted. Head: Normocephalic, atraumatic Neck: Supple, trachea mid-line, no tenderness, no lymphadenopathy. Full ROM and no cervical spinal tenderness. The patient has no step-offs or crepitus noted Eyes: PERRLA, EOMI ENT: no facial or oral injury Cardiovascular: Regular Rate and Rhythm Respiratory: Patient is in no distress, no accessory muscle use, lungs are clear to auscultation, no wheezing, rales or rhonchi Chest Wall: no tenderness. Back: Soft tissue tenderness left lower paralumbar and left upper buttock. Back otherwise has no additional evidence of trauma, including contusion, abrasion, swelling or ecchymosis. The patient had no evidence of step-offs or creptitus noted. No midline bony tenderness to palpation. Negative straight leg raise bilaterally. Musculoskeletal: Soft tissue tenderness to the left proximal forearm without any bony elbow tenderness. Ecchymosis to the soft tissue along the left 5th metacarpaln without any bony tenderness, swelling, deformity or palpable fracture. Pulses at femoral, DP, PT, and popiteal were 2+ bilaterally. Moves all four extremities in all modalities with 5/5 strength. GI: Normal bowel sounds, no tenderness to palpation, no masses appreciated. No rebound, guarding, or rigidity noted. Neurological: A&O x4, normal equal sculpture conservator strength, normal finger to nose, normal speech, normal coordination, normal motor, normal sensory. Psychiatric: Cooperative Constitutional Vital Signs, click to edit/add: Last Vital Signs Temp 98.5 F 03/19/23 08:01 Pulse 94 H 03/19/23 08:01 Resp 16 03/19/23 08:01 BP 129/98 H 03/19/23 08:01 Pulse Ox 98 03/19/23 08:01 O2 Del Method Room Air 03/19/23 08:01 Course Vital Signs Vital signs: Vital Signs Temperature 98.5 F 03/19/23 08:01 Pulse Rate 94 H 03/19/23 08:01 Respiratory Rate 16 03/19/23 08:01 Blood Pressure 129/98 H 03/19/23 08:01 Pulse Oximetry 98 03/19/23 08:01 Oxygen Delivery Method Room Air 03/19/23 08:01 Temperature 98.5 F 03/19/23 08:01 Pulse Rate 94 H 03/19/23 08:01 Respiratory Rate 16 03/19/23 08:01 Blood Pressure 129/98 H 03/19/23 08:01 Pulse Oximetry 98 03/19/23 08:01 Oxygen Delivery Method Room Air 03/19/23 08:01 MDM - Fall MDM Narrative Medical decision making narrative: Patient has soft tissue injuries but no fractures identified on examination. She was given reassurance and a work excuse. I discharged her home with prescriptions for relafen and robaxin. PCP follow up as needed or ED return for any new or concerning symptoms. Discharge Plan Discharge Chief Complaint: Fall Clinical Impression: Fall (on)(from) incline, initial encounter, Traumatic ecchymosis of left hand, Acute lumbar myofascial strain Patient Disposition: Home, Self-Care Time of Disposition Decision: 08:18 Prescriptions / Home Meds: New nabumetone 750 mg tablet 750 mg PO BID PRN (Reason: pain) Qty: 14 0RF methocarbamol 750 mg tablet 750 mg PO Q6H PRN (Reason: pain) Qty: 30 0RF No Action quetiapine 25 mg tablet oxcarbazepine 150 mg tablet sertraline 100 mg tablet aripiprazole 20 mg tablet Instructions: Low Back Strain (ED), Contusion in Adults (ED) Stand Alone Forms: Portal Instructions Referrals: Physician,Non-Staff, MD [Primary Care Provider] - 1 week
== END 2023-03-19 08:29 | disposition home or self-care (01) ==
PROVIDERS: Emergency Provider Emergency Medicine
DX: S39.012A Strain of muscle, fascia and tendon of lower back, initial encounter (principal); S60.222A Contusion of left hand, initial encounter; W00.1XXA Fall from stairs and steps due to ice and snow, initial encounter; Z79.899 Other long term (current) drug therapy
CPT/HCPCS: 99283